=== PATIENT | female | born 1990 | race African-American/Black ===

== ENCOUNTER 2022-06-18 19:56 | Emergency (ER) | payer OTHER, SELFPAY ==
--- NOTE | ~2022-06-18 | CT_ITS ---
EXAMINATION: CT ABDOMEN AND PELVIS WITHOUT CONTRAST CLINICAL INFORMATION: Left-sided abdominal COMPARISON: 03/02/2019 TECHNIQUE: Multidetector volumetric imaging was performed from the superior aspect of the liver through the pubic symphysis. Sagittal and coronal reformatted images were obtained on the technologist's workstation. This CT examination was performed using dose optimization techniques as appropriate, variously including the following: *Automated exposure control *Adjustment of mA and/or kV according to patient size (this includes techniques or standardized protocols for targeted exams where dose is matched to indication/reason for exam; i.e. extremities or head) *Use of iterative reconstruction technique DLP: 254 mGy-cm FINDINGS: LUNG BASES: The visualized lung bases are unremarkable. LIVER, GALLBLADDER, AND BILIARY TREE: The liver is normal in size, shape, and attenuation. No focal hepatic lesion or biliary ductal dilatation is present. Gallbladder physiologically contracted. PANCREAS: Unremarkable. SPLEEN: Unremarkable. ADRENAL GLANDS: Unremarkable. KIDNEYS AND URETERS: The kidneys are normal in size, shape, and attenuation. No hydronephrosis, hydroureter, or calculi seen. No perinephric stranding. BLADDER: Unremarkable. GASTROINTESTINAL TRACT: The small and large bowel are unremarkable. The appendix is unremarkable. ABDOMINAL WALL: No significant hernia is appreciated. LYMPH NODES: Normal. VASCULAR: Unremarkable. PELVIC VISCERA: Hysterectomy. No adnexal abnormalities. OSSEOUS STRUCTURES: No acute or suspicious osseous abnormalities. CT/CT abdomen pelvis wo IV con IMPRESSION: * No acute findings within the abdomen or pelvis to explain the patient's symptomatology. * Hysterectomy.
[2022-06-18 21:15] VITALS: BP 111/72; PULSE 75; RESP 20; TEMP 36.7; O2SAT 98; BMI 16.7
[2022-06-18 22:08] LABS: Hematocrit 36.9 % (37.0-47.0); Hemoglobin 12.2 g/dl (12.0-16.0); Mean Corpuscular HGB Conc 33.1 g/dl (31.0-35.0); Mean Corpuscular Hemoglobin 29.8 pg (27.0-33.0); Mean Corpuscular Volume 90.2 fL (80.0-98.0); Mean Platelet Volume 9.4 fL (9.4-12.3); Platelet Count 326 X10*3/uL (160-400); Red Blood Count 4.09 X10*6/uL (4.20-5.50); White Blood Count 7.5 X10*3/uL (4.8-10.8)
[2022-06-18 22:26] LABS: Alanine Aminotransferase 13 U/L (0-31); Albumin Level 3.7 g/dL (3.5-5.0); Alkaline Phosphatase 69 U/L (39-117); Anion Gap 10 (12-20); Aspartate Amino Transferase 18 U/L (5-31); Bilirubin Total 0.3 mg/dL (0.0-1.0); Blood Urea Nitrogen 9 mg/dL (9-16); Carbon Dioxide 30 mmol/L (22-29); Chloride 104 mmol/L (96-108); Creatinine Clr Calc Pharmacy 69.8; Estimated Glomerular Filt Rate > 60; Glucose Random 99 mg/dL (60-115); Lipase 21 U/L (8-78); Potassium 4.4 mmol/L (3.3-5.1); Sodium 140 mmol/L (135-145); Total Protein 6.6 g/dL (6.5-8.0)
--- NOTE | 2022-06-19 01:41 | ED_ITS ---
HPI - Abdominal Pain General Chief Complaint: Abdominal Pain Stated Complaint: abd pain Time Seen by Provider: 06/19/22 01:39 Source: patient Mode of arrival: ambulatory Limitations: no limitations History of Present Illness HPI narrative: Patient stable asthma, endometriosis status post total abdominal hysterectomy been having this chronic diffuse abdominal pain for last few months was at [facility] last month with workup negative comes in with similar pain no nausea no vomiting pain gets worse after eating constipated removing her bowels every other day. No urinary complaints no hematuria no flank pain no fever or chills denies any substance abuse Related Data Previous Rx's Medication Instructions Recorded dicyclomine 20 mg tablet 20 mg PO QID PRN abdominal pain 06/19/22 #20 tabs Allergies Allergy/AdvReac Type Severity Reaction Status Date / Time blueberry [BLUEBERRY] Allergy Unknown UNKNOWN Unverified 06/19/22 01:32 Review of Systems Review of Systems Yes all other systems are reviewed and are negative [facility] Social History Social History Alcohol intake: never Smoked in Last 30 Days: No Use of substances other than those prescribed or required for medical reasons: No Advance Directives: No Advance Directives Information Provided: Yes Patient : No Physical Exam ED Vital Signs: Vital Signs - 24 hr 06/18/22 21:15 06/19/22 02:25 Temperature 98.0 F 97.6 F Pulse Rate 75 51 Respiratory Rate 20 16 Blood Pressure 111/72 122/67 Pulse Oximetry 98 100 Oxygen Delivery Method Room Air Room Air BMI result Body Mass Index 16.7 Appearance: Alert. Oriented X3. No acute distress. Eyes: No pallor icterus ENT: Pharynx normal. Oral Mucosa moist Neck: Normal inspection. Neck supple. CVS: Normal heart rate and rhythm. Pulses normal. Respiratory: No respiratory distress. Equal air entry bilateral, no wheezing/rales/rhonchi Abdomen: Soft diffuse tender no rebound tenderness or guarding Bowel sounds are present, no mass palpable, no CVA tenderness Skin: Skin warm and dry. Normal skin color. Normal skin turgor. Extremities: No lower extremity edema. No calf tenderness Neuro: Oriented X 3. No motor deficit. No sensory deficit.No cerebellar signs , cranial nerves II-XII intact Medical Decision Making Medical Decision Making MDM Narrative: Patient nonspecific diffuse abdominal pain labs are normal review CT scan was negative unable to get the records patient is still complaining of pain will get CT scan to rule out diverticulitis 04:30. Patient's CT scan is negative for acute discharge patient home on [place] likely patient has IBS Lab Data MDM Lab Attestation statement: I reviewed the patient's lab results. 06/18/22 22:01 06/18/22 22:01 Labs: Lab Results 06/18/22 06/18/22 Range/Units 22:01 22:01 WBC 7.5 (4.8-10.8) X10*3/uL RBC 4.09 L (4.20-5.50) X10*6/uL Hgb 12.2 (12.0-16.0) g/dl Hct 36.9 L (37.0-47.0) % MCV 90.2 (80.0-98.0) fL MCH 29.8 (27.0-33.0) pg MCHC 33.1 (31.0-35.0) g/dl RDW 15.0 (11.0-16.0) % Plt Count 326 (160-400) X10*3/uL MPV 9.4 (9.4-12.3) fL Absolute Nucleated RBC 0.000 (0.0-0.012) X10*3/uL Nucleated RBC % (auto) 0.0 (0.0-0.2) /100WBC Sodium 140 (135-145) mmol/L Potassium 4.4 (3.3-5.1) mmol/L Chloride 104 (96-108) mmol/L Carbon Dioxide 30 H (22-29) mmol/L Anion Gap 10 L (12-20) BUN 9 (9-16) mg/dL Creatinine 0.92 (0.5-1.4) mg/dL Estim Creat Clear Calc 69.8 Estimated GFR > 60 Random Glucose 99 (60-115) mg/dL Calcium 9.0 (8.4-10.2) mg/dL Total Bilirubin 0.3 (0.0-1.0) mg/dL AST 18 (5-31) U/L ALT 13 (0-31) U/L Alkaline Phosphatase 69 (39-117) U/L Total Protein 6.6 (6.5-8.0) g/dL Albumin 3.7 (3.5-5.0) g/dL Lipase 21 (8-78) U/L Medications Administered Discontinued Medications Generic Name Dose Route Start Last Admin Trade Name Freq PRN Reason Stop Dose Admin Dicyclomine HCl 20 mg 06/19/22 02:17 06/19/22 02:50 Dicyclomine Hcl 10 Mg Capsule PO 06/19/22 02:18 20 mg ONCE ONE Administration Discharge Plan Discharge Clinical Impression: Irritable bowel syndrome Patient Disposition: Home, Self-Care Instructions: Irritable Bowel Syndrome (ED) Additional Instructions: Drink plenty of fluids Take medication as prescribed Follow-up with your PCP Prescriptions: New dicyclomine 20 mg tablet 20 mg PO QID PRN (Reason: abdominal pain) Qty: 20 0RF Interventions: ED Discharge Assessment Last Done: 06/19/22 04:32 Discharge Date/Time: 06/19/22 04:35
[2022-06-19 02:25] VITALS: BP 122/67; PULSE 51; RESP 16; TEMP 36.4; O2SAT 100
[2022-06-19] MEDS: Dicyclomine HCl 10 MG CAPSULE 20 MG PO (02:50)
== END 2022-06-19 04:35 | disposition home or self-care (01) ==
PROVIDERS: Emergency Provider Internal Medicine; PCP Internal Medicine
DX: K58.9 Irritable bowel syndrome, unspecified (principal); R10.9 Unspecified abdominal pain; J45.909 Unspecified asthma, uncomplicated
CPT/HCPCS: 36415; 74176; 80053; 83690; 85027; 99284

== ENCOUNTER 2022-07-04 10:28 | Emergency (ER) | payer OTHER, SELFPAY ==
--- NOTE | ~2022-07-04 | XR_ITS ---
EXAMINATION: XR KNEE, LEFT CLINICAL INFORMATION: Pain COMPARISON: None available. TECHNIQUE: Four views of the left knee. FINDINGS: Bones and soft tissues are normal. No fracture or joint effusion. Alignment is anatomic. Joint spaces are well maintained. No arthritic deformity. No abnormal soft tissue calcification. XR/XR knee LT 4V IMPRESSION: Normal left knee.
[2022-07-04 10:38] VITALS: BP 113/61; PULSE 54; RESP 19; TEMP 36.6; O2SAT 99; BMI 16.7
--- NOTE | 2022-07-04 10:45 | ED_ITS ---
HPI - Extremity Injury (Lower) General Chief Complaint: Extremity Injury, Lower Stated Complaint: L knee pain Time Seen by Provider: 07/04/22 10:44 Source: patient, RN notes reviewed and old records reviewed Mode of arrival: ambulatory History of Present Illness HPI Narrative: 31-year-old female with no significant past medical history presenting to the ED complaining of atraumatic left knee pain x 4 days. Denies known injury/trauma or fall, numbness, tingling, weakness, fever MD complaint: knee injury Onset (ago): day(s) Related Data Previous Rx's Medication Instructions Recorded dicyclomine 20 mg tablet 20 mg PO QID PRN abdominal pain 06/19/22 #20 tabs naproxen 500 mg tablet 500 mg PO BID PRN pain 10 days #20 07/04/22 tabs Allergies Allergy/AdvReac Type Severity Reaction Status Date / Time blueberry [BLUEBERRY] Allergy Unknown UNKNOWN Verified 07/04/22 10:38 Review of Systems Review of Systems: Constitutional: No Fever, No Chills ENT/Mouth: No Ear Pain, No Nasal Congestion, No sore throat, No Rhinorrhea, No Swallowing Difficulty Cardiovascular: No Chest Pain, No SOB Respiratory: No Cough, No Sputum Gastrointestinal: No Nausea, No Vomiting, No Diarrhea, No Constipation, No Abdominal pain Genitourinary: No Dysuria, No Urinary Frequency, No Hematuria, No Flank Pain Musculoskeletal: +joint pain, No Myalgias, No Joint Swelling Skin: No Skin Lesions, No rash Neuro: No Weakness, No Numbness, No Paresthesias Yes all other systems are reviewed and are negative Constitutional: Constitutional: Reports as per [facility] Past Medical History Attestation statement: The following information was validated with the patient. Social History Social History Alcohol intake: never Advance Directives: No Advance Directives Information Provided: No Physical Exam Vital Signs: Vital Signs: Last Vital Signs Temp 98 F 07/04/22 10:38 Pulse 54 07/04/22 10:38 Resp 19 07/04/22 10:38 BP 113/61 07/04/22 10:38 Pulse Ox 99 07/04/22 10:38 O2 Del Method Room Air 07/04/22 10:38 BMI result Body Mass Index 16.7 Const: General: cooperative, healthy appearing and no acute distress Orientation/consciousness: patient oriented x3 Limitations: no limitations HEENT: Head: Yes normal to inspection and Yes atraumatic Ears: hearing grossly normal bilaterally General nose exam: Normal external nose present Face and sinus: Yes normal facial exam Eyes: General: appearance normal, both eyes and all related structures EOM: EOMs intact bilaterally Neck: Neck: Yes normal visual inspection and Yes no meningeal signs Resp: Effort & Inspection: normal respiratory effort and no respiratory distress Cardio: Rate: regular rate Peripheral pulses: Peripheral pulses 2+ throughout Skin: Rashes: no rashes Wounds: no wounds Neuro: General: patient oriented x3, tone normal and no meningeal signs Gait exam (Neuro): Normal gait present Extrem: Other: Left knee without noted deformity. Mild suprapatellar swelling noted with tenderness to palpation. Flexion intact with pain. Extension WNL. Neurovascular intact distally. No warmth/erythema Course Course Course Narrative: XR knee LT 4V IMPRESSION: Normal left knee. >> Shekhar wrap applied for comfort/debility Results discussed with patient including worrisome signs and symptoms and strict return precautions, and when to return to the emergency department. They verbalized understanding and feel safe for discharge at this time. Medical Decision Making Medical Decision Making MDM Narrative: 31-year-old female with no significant past medical history presenting to the ED complaining of atraumatic left knee pain x 4 days. On exam vital signs stable, NAD, nontoxic appearing physical exam as above. Concern for strain vs meniscal/tendon injury. Low suspicion for fracture. Low suspicion for septic joint/arthritis plan: X-rays Please refer to course for remaining clinical decision making, interpretation of labs/imaging results, and discussions with consultants and/or family members. Differential Diagnosis Differential Diagnoses: The differential diagnosis associated with the presentation includes As above Admission/Observation Consideration of admission/observation: Escalation of care including admission/observation considered Lab Data MDM Lab Attestation statement: I reviewed the patient's lab results. Radiology Impression Discussion of test interpretation with radiology: I have reviewed the radiologist's reading. External Record Review External record reviewed: Inpatient record, Office record, Outpatient record, Prior outpatient labs, Prior outpatient radiology, Primary care record and Outside ED record Discharge Plan Discharge Clinical Impression: Acute knee pain Patient Disposition: Home, Self-Care Instructions: Knee Pain (ED) Additional Instructions: Your x-ray is unremarkable. Ice and elevate Wear Shekhar wrap for comfort and stability Take Tylenol and Motrin for pain Follow-up with her doctor and Orthopedics as needed Prescriptions: New naproxen 500 mg tablet 500 mg PO BID PRN (Reason: pain) 10 Days Qty: 20 0RF No Action dicyclomine 20 mg tablet 20 mg PO QID PRN (Reason: abdominal pain) Qty: 20 0RF Referrals: [facility] [Provider Group] Physician,Unknown J [Primary Care Provider] - Interventions: ED Discharge Assessment Last Done: 07/04/22 12:03 Discharge Date/Time: 07/04/22 12:04
--- OUTSIDE RECORDS SUMMARY | 2022-07-04 14:34 | XMS_ITS | Continuity of Care Document ---
Author Name Unknown Organization [facility] Address [address] [place] [id number]- Care Team Providers Care [employer] Worker Name Role Phone Charles LANG, Shabana Joe Primary Care Physician Encounter [facility] Date(s): 04/01/21 - 05/01/[address] [address]- Allergies, Adverse Reactions, Alerts Substance Reaction Severity Status Cats sneezing Active Other Food Allergy 1, 2 Anaphylaxis anaphylaxis to blueberries itcy mouth Blueberries Active 1blueberries 2Blueberries Immunizations Given and Recorded Vaccine Date Status Refusal Reason influenza virus vaccine, inactivated 12/09/18 Give n influenza virus vaccine, inactivated 01/03/16 Give n influenza virus vaccine, inactivated 12/07/14 Give n influenza virus vaccine, inactivated 12/17/13 Give n influenza virus vaccine, inactivated 02/11/13 Give n hepatitis B adult vaccine 05/16/15 Given hepatitis B adult vaccine 12/07/14 Given hepatitis B adult vaccine 11/02/14 Given pneumococcal 23-valent vaccine 01/15/15 Given tetanus/diphtheria/pertussis, acel(Tdap) 12/17/13 Given tetanus/diphtheria/pertussis, acel(Tdap) 02/07/13 Given FluLaval (oldterm) 1 01/14/12 Given Tet/diphth/pertussis, acel (oldterm) 11/16/10 Give n Not Given Vaccine Date Status Refusal Reason pneumococcal 23-valent vaccine 12/04/13 Not Given Patient Refuses pneumococcal 23-valent vaccine 03/10/13 Not Given Patient Refuses 1Admin Note: VIS GIVEN Medications albuterol CFC free 90 mcg/inh inhalation aerosol 1, puffs, Inhalation, Every 6 hours, PRN, # 18 Gm, Refills 0, Tot. Refills 0, Maintenance, 06/15/1912:44:37 EDT, Aerosol, Route to Pharmacy Electronically, [id number], [facility]/pharmacy #[id number], Compound Start Date: 06/15/18 Status: Ordered Colace sodium 100 mg oral capsule 100 mg, 1, capsule, By Mouth, 2 times a day, # 60 capsule, Refills 0, Tot. Refills 0, Maintenance, 02/25/18 13:34:26 EST, Print Requisition Start Date: 02/25/18 Stop Date: 03/27/18 Status: Ordered ferrous sulfate 325 mg oral enteric coated tablet 325 mg, 1, tablet, By Mouth, Daily, # 90 tablet, Refills 0, Tot. Refills 0, Maintenance, 03/20/20 9:28:00 EST, Route to Pharmacy Electronically, [facility]/pharmacy #[id number], Partial fill upon patient request if the prescription is for a schedule II opioid drug... Start Date: 03/20/20 Status: Ordered fluticasone 50 mcg/inh nasal spray 1 sprays, Nares, Both, 2 times a day, # 16 Gm, 0 Refills, Maintenance, 07/27/19 19:54:00 EDT, [place], [facility]/pharmacy #[id number], 1 sprays Nares, Both 2 times a day, 174, cm, 12/09/18 8:31:00 EDT, Height, 50,kg, 04/10/19 4:52:00 EST, Dry Weight Start Date: 07/27/19 Status: Ordered ibuprofen 600 mg oral tablet 600 mg, 1, tablet, By Mouth, Every 8 hours, # 90 tablet, Refills 2, Tot. Refills 2, Maintenance, 03/05/19 3:09:00 EST, Route to Pharmacy Electronically, [facility]/pharmacy #[id number], 174, cm, 12/09/18 8:31:00 EDT, Height, 52.7, kg, 10/26/18 15:15:00 EDT, Dry We... Start Date: 03/05/19 Status: Ordered loratadine 10 mg oral tablet 10 mg, 1, tablet, By Mouth, Daily, # 30 tablet, Refills 4, Tot. Refills 4, Maintenance, 07/20/20 10:21:00 EDT, Route to Pharmacy Electronically, [facility]/pharmacy #[id number], 174, cm, 07/20/20 9:36:00 EDT, Height, 50.1, kg, 10/14/19 23:21:00 EDT, Dry Weight Start Date: 07/20/20 Stop Date: 12/17/20 Status: Ordered oxyCODONE 5 mg oral tablet See Instructions, PRN, take 0.5 tablet at onset of severe pain. if not better in 1 hr, take the remainder of the tablet. maximum use: 1 tablet/day masspat checked. partial fill permitted, # 4 tablet,Refills 0, Tot. Refills 0, Maintenance, endometr... Start Date: 04/07/21 Status: Ordered oxyCODONE 5 mg oral tablet See Instructions, take 0.5 tablet at onset of severe pain. if not better in 1 hr, take the remainder of the tablet. maximum use: 1 tablet/day masspat checked. partial fill permitted fill on or after 09/19/20, # 5 tablet, Refills 0, Tot. Refills 0... Start Date: 09/19/20 Status: Ordered oxyCODONE 5 mg oral tablet See Instructions, PRN, take 0.5 tablet at onset of severe pain. if not better in 1 hr, take the remainder of the tablet. maximum use: 1 tablet/day masspat checked. partial fill permitted, # 4 tablet,Refills 0, Tot. Refills 0, Maintenance, endometr... Start Date: 01/05/21 Status: Ordered sulindac 150 mg oral tablet 1 tablet = 150 mg, By Mouth, 2 times a day, PRN for pain, # 20 tablet, 0 Refills, Maintenance, 08/19/20 21:01:00 EDT, Tablet, [facility]/pharmacy #[id number], Partial fill upon patient request if the prescriptionis for a schedule II opioid drug., 174, cm, ... 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
--- OUTSIDE RECORDS SUMMARY | 2022-07-04 14:34 | XMS_ITS | Continuity of Care Document ---
Author Name Unknown Organization [facility] Address [address] [place] [address]- Care Team Providers Care Sawdust Machine Operator Name Role Phone Oswald Harley NP Primary Care Physicia n Encounter [facility] ACCT R [id number] Date(s): 06/03/22 - 07/03/[address] [address]- Attending Physician: Srinivasa Mendieta Admitting Physician: Srinivasa Mendieta Referring Physician: AdmtrSrinivasa Allergies, Adverse Reactions, Alerts Substance Reaction Severity [...] Patient Refuses 1Admin Note: VIS GIVEN Medications acetaminophen 325 mg oral tablet 650 mg, 2, tablet, By Mouth, Every 4 hours, PRN, # 50 tablet, Refills 0, Tot. Refills 0, Maintenance, as needed for fever, 10/30/21 15:13:00 EDT, Route to Pharmacy Electronically, [facility]/pharmacy #[id number],Partial fill upon patient request if the prescripti... Start Date: 10/30/21 Status: Ordered albuterol CFC free 90 mcg/inh inhalation aerosol 2, puffs, Inhalation, Every 6 hours, PRN, # 1 each, Refills 11, Tot. Refills 11, Maintenance, 10/10/21 9:46:00 EDT, Aerosol, Route to Pharmacy Electronically, [id number], [place], [place] - [id number], 173, c... Start Date: 10/10/21 Stop Date: 10/05/22 Status: Ordered dicyclomine 20 mg oral tablet 1 tablet = 20 mg, By Mouth, 3 times a day, For stomach cramping., # 21 tablet, 0 Refills, Maintenance, 05/24/22 11:58:00 EDT, Tablet, [facility]/pharmacy #[id number], Partial fill upon patient request if the prescription is for a schedule II opioid drug., 173, cm,... Start Date: 05/24/22 Stop Date: 05/31/22 Status: Ordered estradiol 2 mg oral tablet 1 tablet = 2 mg, By Mouth, Daily, # 30 tablet, 0 Refills, Maintenance, 04/27/22 4:22:00 EST, Tablet, Partial fill upon patient request if the prescription is for a schedule II opioid drug. Start Date: 04/27/22 Status: Ordered famotidine 20 mg oral tablet 20 mg, 1, tablet, By Mouth, 2 times a day, # 60 tablet, Refills 0, Tot. Refills 0, Maintenance, 05/26/22 8:45:00 EDT, Route to Pharmacy Electronically, [facility]/pharmacy #[id number], Partial fill upon patient request if the prescription is for a schedule II opio... Start Date: 05/26/22 Status: Ordered famotidine 20 mg oral tablet 20 mg, 1, tablet, By Mouth, 2 times a day, # 180 tablet, Refills 0, Tot. Refills 0, Maintenance, 05/26/22 9:05:00 EDT, Route to Pharmacy Electronically, [facility]/pharmacy #[id number], Partial fill upon patient request if the prescription is for a schedule II opi... Start Date: 05/26/22 Status: Ordered omeprazole 40 mg oral enteric coated capsule 1 capsule = 40 mg, By Mouth, Daily, For abdominal pain/ stomach acid/ reflux, # 14 capsule, 0 Refills, Maintenance, 05/24/22 11:59:00 EDT, EC Capsule, [facility]/pharmacy #[id number], Partial fill upon patient request if the prescription is for a schedule II opioi... Start Date: 05/24/22 Stop Date: 06/07/22 Status: Ordered ondansetron 4 mg oral tablet, disintegrating 1 tablet = 4 mg, By Mouth, Every 8 hours, PRN as needed for nausea/vomiting, # 12 tablet, 0 Refills, Maintenance, 05/26/22 8:45:00 EDT, DIS Tablet, [facility]/pharmacy #[id number], Partial fill upon patient request if the prescription is for a schedule II opioid d... Start Date: 05/26/22 Status: Ordered ondansetron 4 mg oral tablet, disintegrating 1 tablet = 4 mg, By Mouth, Every 8 hours, PRN as needed for nausea/vomiting, # 14 tablet, 0 Refills, Maintenance, 05/26/22 9:05:00 EDT, DIS Tablet, [facility]/pharmacy #[id number], Partial fill upon patient request if the prescription is for a schedule II opioid d... Start Date: 05/26/22 Status: Ordered predniSONE 5 mg oral tablet 1 tablet = 5 mg, By Mouth, Daily, # 5 tablet, 0 Refills, Maintenance, 04/29/22 13:40:00 EST, Tablet, [facility]/pharmacy #[id number], Partial fill upon patient request if the prescription is for a schedule II opioid drug., 173, cm, 04/28/22 11:17:00 EST, Height, 5... Start Date: 04/29/22 Stop Date: 05/04/22 Status: Ordered Problem List Condition Confirmation Course Effective Dates Status H ealth Status Informant Asthma Confirmed Active Depression Confirmed Active Pseudoseizure Confirmed Active Dizzinesses Confirmed Active Endometriosis on pelvisoscopy w bx Dr Stacy 07/2015 Confirmed Active Fall from slip, trip, or stumble Confirmed Active Status post tubal ligation 1 Confirmed Active Left inguinal hernia Confirmed Active Right inguinal hernia Confirmed Active Seizures Confirmed Active Underweight Confirmed Active Social History Social History Type Response Smoking Status 5-9 cigarettes (betw een 1/4 to 1/2 pack)/day in last 30 days; Other: states the amount varies; entered on: 02/06/22 Sex Implantable Device List Procedure Provider Procedure Date Device Type Site Repair Hernia Inguinal with Mesh Tan LANG, Luciano 02/25/18 Unknown Groin Right Device Identifier Serial Number Lot or Batch Number Manufacturing Date Expiration Date Distinct Identification Code MRI Safety Implantable Status Assigning Authority Unknown [id number] Unknown 10/04/21 Unknown Unknown Active Unknown Note * Shauna Molina: PERFORM, SIGN, VERIFY Event Display: Patient Education/Instruction Authored Date: [id number] [facility] Clinical Summary Person Information Visit Date 03/20/2015 8:40 AM Name ASHER JUÁREZ Age 24 Years 1990 12:00 AM PCP Shabana Soto MD, I PCP Sex Female Race Black Ethnicity Non-/Non- Language Finnish You can now view a summary of your hospital visit from the comfort of your home through a free online portal called [employer]. [employer] is a website that allows you to securely view your medical information including discharge summary, medications and follow-up visits. You can also send a secure electronic message to your doctor???s office to request appointments, renew medicationsor just ask a question. You can enroll at [email or web address] or register during your next office visit. Smoking can increase your chances of developing chronic health problems and can cause harmful effects to other family members in your house. If you smoke, you are strongly encouraged to quit. Please call the [place] Smokers??? Helpline at 8-385-RLLNNOW (or ) or log on to [email or web address] for more information. Reason for Visit: Allergy Info: Other Food Allergy Smoking Status Former smoker Vital Signs Height Weight BMI Blood Pressure / Temperature Pulse Rate Respiratory Rate 02 Sat Mode of Delivery / Medication Information Albuterol (albuterol 0.083% inhalation solution) 6 mL, Inhalation, every 6 hours, 10 days, As Needed, for wheezing, Refills: 0 Albuterol (albuterol CFC free 90 mcg/inh inhalation aerosol) 4 puffs, Inhalation, every 4 hours, 14days, As Needed, for wheezing, Refills: 0 Beclomethasone (Qvar 80 mcg/inh inhalation aerosol) 1 puffs, Inhalation, twice a day, rinse mouth and throat after use, 30 days, Refills: 11 Cholecalciferol (Vitamin D3 2000 intl units oral tablet) 1 tablet, Oral, Daily, with food, 30 days,Refills: 11 Emtricitabine-Tenofovir (Truvada 200 mg-300 mg oral tablet) 1 tablet, Oral, Daily, She is on this for PrEP, 30 days, Refills: 3 Epinephrine (EpiPen 2-Shen 0.3 mg injectable kit) , See Instructions, Intramuscular Once--then go [facility] ER-pt will call w/ her insurance info, Refills: 0 Loratadine (loratadine 10 mg oral tablet) 1 tablet, Oral, Daily, 30 days, Refills: 5 Mirtazapine (mirtazapine 15 mg oral tablet) 1 tablet, Oral, Daily at Bedtime, 30 days, Refills: 5 Multivitamin (multivitamin Multiple Vitamins oral tablet) 1 tablet, Oral, Daily, 30 days, Refills: 11 Future Orders No future orders Orders Completed this Visit No visit orders documented Problem List Problem Asthma Left inguinal hernia Exposure to Human immunodeficiency virus Dissecting aneurysm of coronary artery H/O: tubal ligation Diagnosis Procedures No Procedures Documented If the following labs have been performed in the last year, the most recent result is displayed below. Diagnostic Results Lab Result Value Date Lead Hemoglobin A1C 5.6 06/21/14 LDL HDL Triglycerides Total Cholesterol Disclaimer: The information provided is of a general nature and is intended to be used in conjunction with the recommendations and advice of your health care practitioner. Every effort has been made to ensure that the information provided is accurate and complete at the time it is provided to you however, as your needs change, or, as new information becomes available, different or additional instructions may be required. If you have questions, please consult with your primary care provider or pharmacist, as appropriate. This information is not intended to serve as substitution for assessment and evaluation by a qualified health care provider. If you do not have a primary care provider, you may find a [facility] provider by calling [facility] [employer] Link at [phone]. For information about the plan of care including goals and instructions for your diagnosis, please see the patient education orders section of this document. Patient Visit Summary: Future Appointments: Type Location Start Finish State Return [facility] Neurology 02/21/2015 2:00 PM 02/21/2015 2:30 PM Pending Return Adult [facility] See Sq 03/20/2015 8:40 AM 03/20/2015 8:55 AM Pending Follow-Up Instructions With: Address: When: NEUROLOGY APPT 02/22/16 2P @ [address] [place] [address] Comments: Patient Education Materials Additional Instructions: Patient Care team information Care Team Personnel Name: Mendy Spicer RN Position: [facility] RN Member Role: Primary Care Nurse Name: Shiela Mays RN Position: [facility] RN Member Role: Primary Care Nurse Name: Ashley Fields RN Position: [facility] MR W/ Merge Member Role: Primary Care Nurse Name: Keith Stacy MD Position: [facility] OB/GYN DOCTOR MD Member Role: [employer] OB/GYN DOCTOR Physician Address: Address: [address] [place] [address] Name: Robin Wagner Position: [facility] RN Member Role: Primary Care Nurse Name: Justin Francis RN Position: [facility] RN Member Role: Primary Care Nurse Name: Laya Montes RN Position: [facility] ED RN W/OE and Tasks Member Role: Primary Care Nurse Name: Alice Juarez RN Position: [facility] RN Member Role: Primary Care Nurse Name: Fela Garcia RN Position: [facility] ED RN W/OE and Tasks Member Role: Primary Care Nurse Name: Anay Rouse RN Position: S RN Member Role: Primary Care Nurse Name: Jennifer Weaver RN Position: S RN Member Role: Primary Care Nurse Name: Roxana Young RN Position: [facility] RN Member Role: Primary Care Nurse Name: Oswald Harley NP Position: [facility] PCO Associate Professional Member Role: PCP Address: Address: [address] [place] [id number]- Name: Megan Grant RN Position: [facility] ED RN W/OE and Tasks Member Role: Primary Care Nurse Name: Eliane Vo RN Position: [facility] RN Member Role: Primary Care Nurse Name: Neda Hernandez RN Position: [facility] PCO RN Member Role: Primary Care Nurse Care Team Related Persons Name: MENDEL MCKEON Address: home [address] [place] [address] Name: GIANA LAMAS Address: home [address] [place] [address] Name: ROSHNI JUÁREZ Address: [place] [address] Name: SINDHU SCHRADER Address: home [address] [place] [address] Name: CRAIG VACA Address: home [address] [place] [id number]
--- OUTSIDE RECORDS SUMMARY | 2022-07-04 14:35 | XMS_ITS | Continuity of Care Document ---
Author Name Unknown Organization [facility] Address [address] [place] [address]- Care Team Providers Care Tower Equipment Installer Name Role Phone Charles LANG, Shabana Joe Primary Care Physician Encounter [facility] Date(s): 10/24/21 - 11/23/[address] [address]- Allergies, Adverse Reactions, Alerts Substance Reaction Severity [...] 10/30/21 15:13:00 EDT, Route to Pharmacy Electronically, [facility]/pharmacy #[id number],Partial fill upon patient request if the prescripti... Start Date: 10/30/21 Status: Ordered albuterol CFC free 90 mcg/inh inhalation aerosol 2, puffs, Inhalation, Every 6 hours, PRN, # 1 each, Refills 11, Tot. Refills 11, Maintenance, 10/10/21 9:46:00 EDT, Aerosol, Route to Pharmacy Electronically, [id number], [place], [place] - [phone], 173, c... Start Date: 10/10/21 Stop Date: 10/05/22 Status: Ordered docusate sodium 100 mg oral capsule 1 capsule = 100 mg, By Mouth, 2 times a day, PRN as needed for constipation, # 60 capsule, 0 Refills, Maintenance, 10/30/21 15:12:00 EDT, Capsule, [facility]/pharmacy #[id number], Partial fill upon patient request if the prescription is for a schedule II opioid dr... Start Date: 10/30/21 Status: Ordered Estrace 2 mg oral tablet 1 tablet = 2 mg, By Mouth, Daily, # 30 tablet, 0 Refills, Maintenance, 10/30/21 15:28:00 EDT, Tablet, [facility]/pharmacy #[id number], Partial fill upon patient request if the prescription is for a schedule II opioid drug., 173, cm, 10/27/21 23:24:00 EDT, Height,... Start Date: 10/30/21 Status: Ordered ibuprofen 600 mg oral tablet 600 mg, 1, tablet, By Mouth, 4 times a day, PRN, # 40 tablet, Refills 0, Tot. Refills 0, Maintenance, for pain, 10/30/21 15:12:00 EDT, Route to Pharmacy Electronically, [facility]/pharmacy #[id number], Partial fill upon patient request if the prescription is for a... Start Date: 10/30/21 Status: Ordered oxyCODONE 5 mg oral capsule 1 capsule = 5 mg, By Mouth, Every 6 hours, PRN as needed for pain, # 10 capsule, 0 Refills, Maintenance, 11/07/21 18:57:00 EDT, Capsule, [facility]/pharmacy #[id number], Partial fill upon patient request if the prescription is for a schedule II opioid drug., 173,... Start Date: 11/07/21 Status: Ordered oxyCODONE 5 mg oral tablet 5 mg, 1, tablet, By Mouth, Every 6 hours, PRN, # 20 tablet, Refills 0, Tot. Refills 0, Maintenance,as needed for pain, 10/30/21 15:13:00 EDT, Route to Pharmacy Electronically, [facility]/pharmacy #[id number], Partial fill upon patient request if the prescription... Start Date: 10/30/21 Status: Ordered Senna 8.6 mg oral tablet 17.2 mg, 2, tablet, By Mouth, Daily at bedtime, # 50 tablet, Refills 0, Tot. Refills 0, Maintenance, 10/30/21 15:13:00 EDT, Route to Pharmacy Electronically, [facility]/pharmacy #[id number], Partial fill upon patient request if the prescription is for a schedule I... 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) Active Fall from slip, trip, or stumble(Confirmed) Active Status post tubal ligation(C onfirmed) 1 Active Left inguinal hernia(Confirmed) Active Right inguinal hernia(Confirmed) Active Seizures(Confirmed) Active Underweight(Confirmed) Active Social History Social History Type Response Smoking Status Current every day sm oker; Type: Cigarettes; Other: 3 cigarettes a day; entered on: 10/10/17 Sex Implantable Device List Procedure Provider Procedure Date Device Type Site Repair Hernia Inguinal with Mesh Tan LANG, Luciano 02/25/18 Unknown Groin Right Device Identifier Serial Number Lot or Batch Number Manufacturing Date Expiration Date Distinct Identification Code MRI Safety Implantable Status Assigning Authority Unknown [id number] Unknown 10/04/21 Unknown Unknown Active Unknown Care Team Personnel Name: Shabana Soto MD, I Address: [address] [place] [address], [place] [address]-
--- OUTSIDE RECORDS SUMMARY | 2022-07-04 14:35 | XMS_ITS | Continuity of Care Document ---
Author Name Unknown Organization [facility] Address [address] [place] [address]- Care Team Providers Care Dispatch Clerk Name Role Phone Charles LANG, Shabana Joe Primary Care Physician [phone] Encounter [facility] Date(s): 01/21/22 - 02/20/[address] [address]- Allergies, Adverse Reactions, Alerts Substance Reaction Severity [...] 10/30/21 15:13:00 EDT, Route to Pharmacy Electronically, [facility]/pharmacy #[id number],Partial fill upon patient request if the prescripti... Start Date: 10/30/21 Status: Ordered albuterol CFC free 90 mcg/inh inhalation aerosol 2, puffs, Inhalation, Every 6 hours, PRN, # 1 each, Refills 11, Tot. Refills 11, Maintenance, 10/10/21 9:46:00 EDT, Aerosol, Route to Pharmacy Electronically, [id number], [place], [place] - [phone], 173, c... Start Date: 10/10/21 Stop Date: 10/05/22 Status: Ordered Problem List Condition Confirmation Course Effective Dates Status H ealth Status Informant Asthma Confirmed Active Depression Confirmed Active Pseudoseizure Confirmed Active Dizzinesses Confirmed Active Endometriosis on pelvisoscopy w bx Dr Stacy 07/2015 Confirmed Active Partner HIV positive on Truvada Confirmed Active Fall from slip, trip, or [...] Type Site Repair Hernia Inguinal with Mesh Luciano Maddox MD 02/25/18 Unknown Groin Right Device Identifier Serial Number Lot or Batch Number Manufacturing Date Expiration Date Distinct Identification Code MRI Safety Implantable Status Assigning Authority Unknown [id number] Unknown 10/04/21 Unknown Unknown Active Unknown Patient Care team information Care Team Personnel Name: Mendy Spicer RN Position: [facility] RN Member Role: Primary Care Nurse Name: Ashley Fields RN Position: [facility] MR W/ Merge Member Role: Primary Care Nurse Name: Keith Stacy MD Position: [facility] BLOOD BANK CALENDAR CONTROL CLERK MD Member Role: [employer] BLOOD BANK CALENDAR CONTROL CLERK Physician Address: Address: [address] [address]- [place] Name: Shabana Soto MD, I Position: [facility] Primary Care Physician Member Role: PCP Address: Address: [address] [place] [address]- Name: Robin Wagner Position: S RN Member Role: Primary Care Nurse Name: Justin Francis RN Position: S RN Member Role: Primary Care Nurse Name: Laya Montes RN Position: S RN Member Role: Primary Care Nurse Name: Alice Juarez RN Position: [facility] RN Member Role: Primary Care Nurse Name: Fela Garcia RN Position: [facility] ED RN W/OE and Tasks Member Role: Primary Care Nurse Name: Anay Rouse RN Position: [facility] RN Member Role: Primary Care Nurse Name: Jennifer Weaver RN Position: S RN Member Role: Primary Care Nurse Name: Megan Grant RN Position: [facility] ED RN W/OE and Tasks Member Role: Primary Care Nurse Name: Eliane Vo RN Position: [facility] RN Member Role: Primary Care Nurse Name: Neda Hernandez RN Position: [facility] PCO RN Member Role: Primary Care Nurse Care Team Related Persons Name: MENDEL MCKEON Address: home [address], [place] [address] Name: GIANA LAMAS Address: home [address] [place] [address] Name: ROSHNI JUÁREZ Address: [place] [address] Name: SINDHU SCHRADER Address: home [address] [place] [address] Name: CRAIG VACA Address: home [address] [place] [address]
--- OUTSIDE RECORDS SUMMARY | 2022-07-04 14:35 | XMS_ITS | Continuity of Care Document ---
Author Name Unknown Organization [facility] Address [address] [place] [address]- Care Team Providers Care Marketing Forecaster Name Role Phone Charles LANG, Shabana Joe Primary Care Physician Encounter [facility] Date(s): 06/18/21 - 07/18/[address] [address]- Allergies, Adverse Reactions, Alerts Substance Reaction Severity [...] 06/15/1912:44:37 EDT, Aerosol, Route to Pharmacy Electronically, [id number], [facility]/pharmacy #[id number], Compound Start Date: 06/15/18 Status: Ordered [...] 03/20/20 9:28:00 EST, [id number] Partial fill upon patient request if the prescription is for a schedule II opioid drug... Start Date: 03/20/20 Status: Ordered fluticasone 50 mcg/inh nasal spray 1 sprays, Nares, Both, 2 times a day, # 16 Gm, 0 Refills, Maintenance, 07/27/19 19:54:00 EDT, [place], [facility]/pharmacy #[id number], 1 sprays Nares, Both 2 times a day, 174, cm, 12/09/18 8:31:00 EDT, Height, 50,kg, 04/10/19 4:52:00 EST, Dry Weight Start Date: 07/27/19 Status: Ordered ibuprofen 600 mg oral tablet 600 mg, 1, tablet, By Mouth, Every 8 hours, # 90 tablet, Refills 2, Tot. Refills 2, Maintenance, 03/05/19 3:09:00 EST, Route to Pharmacy Electronically, [facility]/pharmacy #[id number], 174, cm, 12/09/18 8:31:00 EDT, Height, 52.7, kg, 10/26/18 15:15:00 EDT, Dry We... Start Date: 03/05/19 Status: Ordered loratadine 10 mg oral tablet 10 mg, 1, tablet, By Mouth, Daily, # 30 tablet, Refills 4, Tot. Refills 4, Maintenance, 07/20/20 10:21:00 EDT, Route to Pharmacy Electronically, [facility]/pharmacy #[id number], 174, cm, 07/20/20 9:36:00 EDT, Height, [...] Tot. Refills 0, Maintenance, endometr... Start Date: 06/01/21 Status: Ordered oxyCODONE 5 mg oral tablet [...] 0 Refills, Maintenance, 08/19/20 21:01:00 EDT, Tablet, [id number], Partial fill upon patient request if the [...] MESH BARD [id number] [id number] - B SUSANNA ([id number]) 1 Bard Davol 29 Unknown ANJELICA:No Information Assigning Authority: FDA
--- OUTSIDE RECORDS SUMMARY | 2022-07-04 14:35 | XMS_ITS | Continuity of Care Document ---
Author Name Unknown Organization [facility] Address [address] [place] [address]- Care Team Providers Care Benefits Sales Consultant Name Role Phone Charles LANG, Shabana Joe Primary Care Physician [phone] Encounter [facility] Date(s): 06/27/20 - 07/27/[address] [address]- Allergies, Adverse Reactions, Alerts Substance Reaction Severity [...] 06/15/1912:44:37 EDT, Aerosol, Route to Pharmacy Electronically, [id number], [facility]/pharmacy #[id number], Compound Start Date: 06/15/18 Status: Ordered Colace sodium 100 mg oral capsule 100 mg, 1, capsule, By Mouth, 2 times a day, # 60 capsule, Refills 0, Tot. Refills 0, Maintenance, 02/25/18 13:34:26 EST, Print Requisition Start Date: 02/25/18 Stop Date: 03/27/18 Status: Ordered doxycycline hyclate 100 mg oral enteric coated tablet 0.5 tablet = 50 mg, By Mouth, Every 12 hours, for 10 days, # 10 tablet, 0 Refills, Acute 07/30/20 10:20:00 EDT, 07/20/20 10:20:00 EDT, CR Tablet, [facility]/pharmacy #[id number], Partial fill upon patient requestif the prescription is for a schedule II opioid roberto carlos... Start Date: 07/20/20 Stop Date: 07/30/20 Status: Ordered ferrous sulfate 325 mg oral enteric coated tablet 325 mg, 1, tablet, By Mouth, Daily, # 90 tablet, Refills 0, Tot. Refills 0, Maintenance, 03/20/20 9:28:00 EST, Route to Pharmacy Electronically, [facility]/pharmacy #[id number], Partial fill upon patient request if the prescription is for a schedule II opioid drug... Start Date: 03/20/20 Status: Ordered fluticasone 50 mcg/inh nasal spray 1 sprays, Nares, Both, 2 times a day, # 16 Gm, 0 Refills, Maintenance, 07/27/19 19:54:00 EDT, [place], [facility]/pharmacy #[id number], 1 sprays Nares, Both 2 times a day, 174, cm, 12/09/18 8:31:00 EDT, Height, 50,kg, 04/10/19 4:52:00 EST, Dry Weight Start Date: 07/27/19 Status: Ordered ibuprofen 600 mg oral tablet 600 mg, 1, tablet, By Mouth, Every 8 hours, # 90 tablet, Refills 2, Tot. Refills 2, Maintenance, 03/05/19 3:09:00 EST, Route to Pharmacy Electronically, [facility]/pharmacy #[id number], 174, cm, 12/09/18 8:31:00 EDT, Height, 52.7, kg, 10/26/18 15:15:00 EDT, Dry We... Start Date: 03/05/19 Status: Ordered loratadine 10 mg oral tablet 10 mg, 1, tablet, By Mouth, Daily, # 30 tablet, Refills 4, Tot. Refills 4, Maintenance, 07/20/20 10:21:00 EDT, Route to Pharmacy Electronically, [facility]/pharmacy #[id number], 174, cm, 07/20/20 9:36:00 EDT, Height, 50.1, kg, 10/14/19 23:21:00 EDT, Dry Weight Start Date: 07/20/20 Stop Date: 12/17/20 Status: Ordered oxyCODONE 5 mg oral tablet See Instructions, take 0.5 tablet at onset of severe pain. if not better in 1 hr, take the remainder of the tablet. maximum use: 1 tablet/day masspat checked. partial fill permitted, # 5 tablet, Refills 0, Tot. Refills 0, Maintenance, 06/27/20 9:44... Start Date: 06/27/20 Status: Ordered sulindac 150 mg oral tablet 1 tablet = 150 mg, By Mouth, 2 times a day, PRN for pain, # 20 tablet, 0 Refills, Maintenance, 07/20/20 10:20:00 EDT, Tablet, [facility]/pharmacy #[id number], Partial fill upon patient request if the prescriptionis for a schedule II opioid drug., 174, cm, ... Start Date: 07/20/20 Status: Ordered Problem List Condition Effective Dates [...] MESH BARD 3X6IN 7.5X15CM - B SUSANNA ([id number]) 1 [address]ol 29 Unknown ANJELICA:No Information Assigning Authority: FDA
--- OUTSIDE RECORDS SUMMARY | 2022-07-04 14:35 | XMS_ITS | Continuity of Care Document ---
Author Name Unknown Organization [facility] Address [address] [place] [address]- Care Team Providers Care Fur Buyer Name Role Phone Charles LANG, Shabana Joe Primary Care Physician [phone] Encounter [facility] Date(s): 11/15/21 - 12/15/[address] [address]- Attending Physician: Srinivasa Mendieta Admitting Physician: Srinivasa [...] 10/30/21 15:13:00 EDT, Route to Pharmacy Electronically, [facility]/pharmacy #[id number],Partial fill upon patient request if the prescripti... Start Date: 10/30/21 Status: Ordered albuterol CFC free 90 mcg/inh inhalation aerosol 2, puffs, Inhalation, Every 6 hours, PRN, # 1 each, Refills 11, Tot. Refills 11, Maintenance, 10/10/21 9:46:00 EDT, Aerosol, Route to Pharmacy Electronically, [id number], [place], [place] - [id number], 173, c... Start Date: 10/10/21 Stop Date: 10/05/22 Status: Ordered docusate sodium 100 mg oral capsule 1 capsule = 100 mg, By Mouth, 2 times a day, PRN as needed for constipation, # 60 capsule, 0 Refills, Maintenance, 10/30/21 15:12:00 EDT, [place], [facility]/pharmacy #[id number], Partial fill upon patient request if the prescription is for a schedule II opioid dr... Start Date: 10/30/21 Status: Ordered Estrace 2 mg oral tablet 1 tablet = 2 mg, By Mouth, Daily, # 30 tablet, 0 Refills, Maintenance, 10/30/21 15:28:00 EDT, Tablet, [facility]/pharmacy #[id number], Partial fill upon patient request if the prescription is for a schedule II opioid drug., 173, cm, 10/27/21 23:24:00 EDT, Height,... Start Date: 10/30/21 Status: Ordered ibuprofen 600 mg oral tablet 600 mg, 1, tablet, By Mouth, 4 times a day, PRN, # 40 tablet, Refills 0, Tot. Refills 0, Maintenance, for pain, 10/30/21 15:12:00 EDT, Route to Pharmacy Electronically, [facility]/pharmacy #[id number], Partial fill upon patient request if the prescription is for a... Start Date: 10/30/21 Status: Ordered oxyCODONE 5 mg oral capsule 1 capsule = 5 mg, By Mouth, Every 6 hours, PRN as needed for pain, # 10 capsule, 0 Refills, Maintenance, 11/07/21 18:57:00 EDT, [place], [facility]/pharmacy #[id number], Partial fill upon patient request [...] Date: 10/30/21 Status: Ordered Problem List Condition Confirmation Course [...] MRI Safety Implantable Status Assigning Authority Unknown [id number] Unknown 10/04/21 Unknown Unknown Active Unknown Patient Care team information Personnel Name: Charles LANG, Shabana Joe Address: Address: [address] [place] [address]
--- OUTSIDE RECORDS SUMMARY | 2022-07-04 14:35 | XMS_ITS | Continuity of Care Document ---
Author Name Unknown Organization [facility] Address [address] [place] [address]- Care Team Providers Care Customer Support Manager Name Role Phone Shabana Soto MD, I Primary Care Physician Encounter [facility] Date(s): 02/12/22 - 03/28/[address] [address]- Attending Physician: Olga Lidia Quezada MD Admitting Physician: Olga Lidia Quezada MD Allergies, Adverse Reactions, Alerts Substance Reaction Severity [...] 10/30/21 15:13:00 EDT, Route to Pharmacy Electronically, [facility]/pharmacy #[id number],Partial fill upon patient request if the prescripti... Start Date: 10/30/21 Status: Ordered albuterol CFC free 90 mcg/inh inhalation aerosol 2, puffs, Inhalation, Every 6 hours, PRN, # 1 each, Refills 11, Tot. Refills 11, Maintenance, 10/10/21 9:46:00 EDT, Aerosol, Route to Pharmacy Electronically, [id number], [place], [place] - [phone], 173, c... Start Date: 10/10/21 Stop Date: [...] MRI Safety Implantable Status Assigning Authority Unknown [id number] Unknown 10/04/21 Unknown Unknown Active Unknown Patient Care team information Care Team Personnel Name: Mendy Spicer RN Position: [facility] RN Member Role: Primary Care Nurse Name: Ashley Fields RN Position: [facility] MR W/ Merge Member Role: Primary Care Nurse Name: Keith Stacy MD Position: [facility] MULTICULTURAL INTERNSHIP MD Member Role: Lifetime MULTICULTURAL INTERNSHIP Physician Address: Address: [address] [place] [address]- Name: Shabana Soto MD, I Position: [facility] Primary Care Physician Member Role: PCP Address: Address: [address] [place] [address]- Name: Robin Wagner Position: [facility] RN Member Role: Primary Care Nurse Name: Justin Francis RN Position: [facility] RN Member Role: Primary Care Nurse Name: Laya Montes RN Position: [facility] RN Member Role: Primary Care Nurse Name: Alice Juarez RN Position: [facility] RN Member Role: Primary Care Nurse Name: Fela Garcia RN Position: [facility] ED RN W/OE and Tasks Member Role: Primary Care Nurse Name: Anay Rouse RN Position: [facility] RN Member Role: Primary Care Nurse Name: Jennifer Weaver RN Position: [facility] RN Member Role: Primary Care Nurse Name: Megan Grant RN Position: [facility] ED RN W/OE and Tasks Member Role: Primary Care Nurse Name: Eliane Vo RN Position: [facility] RN Member Role: Primary Care Nurse Name: Neda Hernandez RN Position: [facility] PCO RN Member Role: Primary Care Nurse Care Team Related Persons Name: MENDEL MCKEON Address: home [address] [place] [address] Name: GIANA LAMAS Address: home [address] [place] [address] Name: ROSHNI JUÁREZ Address: [place] [address] Name: SINDHU SCHRADER Address: home [address] [place] [address] Name: CRAIG VACA Address: home [address] [place] [address]
--- OUTSIDE RECORDS SUMMARY | 2022-07-04 14:35 | XMS_ITS | Continuity of Care Document ---
Author Name Unknown Organization [facility] Address [address] [place] [address]- Care Team Providers Care Employee'S Representative Name Role Phone Charles LANG, Shabana Joe Primary Care Physician Encounter [facility] Date(s): 04/09/21 - 05/09/[address] [address]- Allergies, Adverse Reactions, Alerts Substance Reaction Severity [...] 06/15/1912:44:37 EDT, Aerosol, Route to Pharmacy Electronically, [id number], [facility]/pharmacy #[id number], Compound Start Date: 06/15/18 Status: Ordered [...] 03/20/20 9:28:00 EST, Route to Pharmacy Electronically, [facility]/pharmacy #[id number], Partial fill upon patient request if the prescription is for a schedule II opioid drug... Start Date: 03/20/20 Status: Ordered fluticasone 50 mcg/inh nasal spray 1 sprays, Nares, Both, 2 times a day, # 16 Gm, 0 Refills, Maintenance, 07/27/19 19:54:00 EDT, [place], [facility]/pharmacy #[id number], 1 sprays Nares, Both 2 times a day, 174, cm, 12/09/18 8:31:00 EDT, Height, 50,kg, 04/10/19 4:52:00 EST, Dry Weight Start Date: 07/27/19 Status: Ordered ibuprofen 600 mg oral tablet 600 mg, 1, tablet, By Mouth, Every 8 hours, # 90 tablet, Refills 2, Tot. Refills 2, Maintenance, 03/05/19 3:09:00 EST, Route to Pharmacy Electronically, [facility]/pharmacy #[id number], 174, cm, 12/09/18 8:31:00 EDT, Height, 52.7, kg, 10/26/18 15:15:00 EDT, Dry We... Start Date: 03/05/19 Status: Ordered loratadine 10 mg oral tablet 10 mg, 1, tablet, By Mouth, Daily, # 30 tablet, Refills 4, Tot. Refills 4, Maintenance, 07/20/20 10:21:00 EDT, Route to Pharmacy Electronically, [facility]/pharmacy #[id number], 174, cm, 07/20/20 9:36:00 EDT, Height, [...] 0 Refills, Maintenance, 08/19/20 21:01:00 EDT, Tablet, [facility]/pharmacy #[id number], Partial fill upon patient request if the [...] MESH BARD 3X6IN 7.5X15CM - B SUSANNA ([id number]) 1 [address] 29 Unknown ANJELICA:No Information Assigning Authority: FDA
--- OUTSIDE RECORDS SUMMARY | 2022-07-04 14:35 | XMS_ITS | Continuity of Care Document ---
Author Name Unknown Organization [facility] Address [address] [place] [address]- Care Team Providers Care Lime Sludge Kiln Operator Name Role Phone Shabana Soto MD, I Primary Care Physician [phone] Encounter [facility] Date(s): 10/26/20 - 10/27/[address] [address]- Discharge Disposition: A-D/C Walkout Attending Physician: Not on Staff, Attending MD Admitting Physician: Not on Staff, Admitting MD Referring Physician: Not on Staff, Referring MD Allergies, Adverse Reactions, Alerts Substance Reaction [...] 06/15/1912:44:37 EDT, Aerosol, Route to Pharmacy Electronically, [id number], [facility]/pharmacy #[id number], Compound Start Date: 06/15/18 Status: Ordered [...] 03/20/20 9:28:00 EST, Route to Pharmacy Electronically, [facility]/pharmacy #[id number], Partial fill upon patient request if the prescription is for a schedule II opioid drug... Start Date: 03/20/20 Status: Ordered fluticasone 50 mcg/inh nasal spray 1 sprays, Nares, Both, 2 times a day, # 16 Gm, 0 Refills, Maintenance, 07/27/19 19:54:00 EDT, [place], [facility]/pharmacy #[id number], 1 sprays Nares, Both 2 times a day, 174, cm, 12/09/18 8:31:00 EDT, Height, 50,kg, 04/10/19 4:52:00 EST, Dry Weight Start Date: 07/27/19 Status: Ordered ibuprofen 600 mg oral tablet 600 mg, 1, tablet, By Mouth, Every 8 hours, # 90 tablet, Refills 2, Tot. Refills 2, Maintenance, 03/05/19 3:09:00 EST, Route to Pharmacy Electronically, [facility]/pharmacy #[id number], 174, cm, 12/09/18 8:31:00 EDT, Height, 52.7, kg, 10/26/18 15:15:00 EDT, Dry We... Start Date: 03/05/19 Status: Ordered loratadine 10 mg oral tablet 10 mg, 1, tablet, By Mouth, Daily, # 30 tablet, Refills 4, Tot. Refills 4, Maintenance, 07/20/20 10:21:00 EDT, Route to Pharmacy Electronically, [facility]/pharmacy #[id number], 174, cm, 07/20/20 9:36:00 EDT, Height, [...] 0 Refills, Maintenance, 08/19/20 21:01:00 EDT, Tablet, [facility]/pharmacy #[id number], Partial fill upon patient request if [...] Active Right inguinal hernia(Confirmed) Active Seizures(Confirmed) Active Results Radiology Reports * Exam Date Time Procedure Performing Provider Status 10/26/20 10:09 PM Chest 2 Views Frontal and Lat Lm munroe Shameka; Auth (Verified) Notes: (Chest 2 Views Frontal and Lat) Reason For Exam: Chest Pain;Other: RESULT: Chest 2 Views Frontal and Lat Chest 2 Views Frontal and Lat INDICATION: left chest pain since this a.m. COMPARISON: 06/18/2019 FINDINGS: LINES AND TUBES: None. LUNGS AND PLEURA: Clear lungs. Normal pulmonary vascularity. No pleural effusion. No pneumothorax. HEART, MEDIASTINUM AND TALI: Heart is normal in size. Normal upper mediastinal and hilar contour. BONES AND SOFT TISSUES: No acute abnormality. IMPRESSION: Normal. I have personally reviewed the images and I agree with this report. WSN: [id number] Ordering Physician: Petrona Moya Dictated By: Osorio Meyers DO Dictated Date/Time: 10/26/20 10:17 p Reviewed By: Alton Carrera MD Signed By: Alton Carrera MD Signed Date/Time: 10/26/20 10:22 pm Transcribed By: KARIE Transcribed Date/Time: 10/26/20 10:12 pm Vital Signs Most recent to oldest [Reference Range]: 1 2 3 Oxygen Saturation [94-100 %] 100 % (10/26/20 11:57 PM) 100 % (10/26/20 8:35 PM) 100 % (10/26/20 7:04 PM) Pulse Rate [55-90 bpm] 82 bpm (10/26/20 11:57 PM) 57 bpm (10/26/20 7:04 PM) 55 bpm (10/26/20 6:42 PM) Blood Pressure [90-138/55-84 mm Hg] 115/65mm Hg (10/26/20 11:57 PM) 114/55mm Hg (10/26/20 7:04 PM) Respiratory Rate [16-30 br/min] 18 br/min (10/26/20 11:57 PM) 18 br/min (10/26/20 7:04 PM) Temperature [96.8-100.4 DegF] 98.3 DegF (10/26/20 11:57 PM) 98.4 DegF (10/26/20 7:04 PM) Liters per Minute 0 L/min (10/26/20 8:35 PM) Mode of Delivery (Oxygen) Room air (10/26/20 11:57 PM) Room air (10/26/20 8:35 PM) Room air (10/26/20 7:04 PM) Blood pressure sites Arm, left (10/26/20 11:57 PM) Arm, left (10/26/20 7:04 PM) Temperature Route Oral (10/26/20 11:57 PM) Oral (10/26/20 7:04 PM) Social History Social History Type Response Smoking Status Current every day sm oker; Type: Cigarettes; Other: 3 cigarettes a day; entered on: 10/10/17 Sex Medical Equipment Implanted Date:02/25/18Target Site:Groin Right Description Quantity MRI Company Model MESH BARD 3X6IN 7.5X15CM - B SUSANNA ([id number]) 1 [address] Davol 29 Unknown ANJELICA:No Information Assigning Authority: FDA
--- OUTSIDE RECORDS SUMMARY | 2022-07-04 14:35 | XMS_ITS | Continuity of Care Document ---
Author Name Unknown Organization [facility] Address [address] [place] [address]- Care Team Providers Care Executive Community Planning Name Role Phone Charles LANG, Shabana Joe Primary Care Physician Encounter [facility] Date(s): 09/13/20 - 12/03/[address] [address]- Attending Physician: Not on Staff, Attending MD Allergies, Adverse Reactions, Alerts Substance Reaction [...] 06/15/1912:44:37 EDT, Aerosol, Route to Pharmacy Electronically, [id number], [facility]/pharmacy #[id number], Compound Start Date: 06/15/18 Status: Ordered [...] 03/20/20 9:28:00 EST, Route to Pharmacy Electronically, [facility]/pharmacy #[id number], Partial fill upon patient request if the prescription is for a schedule II opioid drug... Start Date: 03/20/20 Status: Ordered fluticasone 50 mcg/inh nasal spray 1 sprays, Nares, Both, 2 times a day, # 16 Gm, 0 Refills, Maintenance, 07/27/19 19:54:00 EDT, [place], [facility]/pharmacy #[id number], 1 sprays Nares, Both 2 times a day, 174, cm, 12/09/18 8:31:00 EDT, Height, 50,kg, 04/10/19 4:52:00 EST, Dry Weight Start Date: 07/27/19 Status: Ordered ibuprofen 600 mg oral tablet 600 mg, 1, tablet, By Mouth, Every 8 hours, # 90 tablet, Refills 2, Tot. Refills 2, Maintenance, 03/05/19 3:09:00 EST, Route to Pharmacy Electronically, [facility]/pharmacy #[id number], 174, cm, 12/09/18 8:31:00 EDT, Height, 52.7, kg, 10/26/18 15:15:00 EDT, Dry We... Start Date: 03/05/19 Status: Ordered loratadine 10 mg oral tablet 10 mg, 1, tablet, By Mouth, Daily, # 30 tablet, Refills 4, Tot. Refills 4, Maintenance, 07/20/20 10:21:00 EDT, Route to Pharmacy Electronically, [facility]/pharmacy #[id number], 174, cm, 07/20/20 9:36:00 EDT, Height, [...] 0 Refills, Maintenance, 08/19/20 21:01:00 EDT, Tablet, [facility]/pharmacy #[id number], Partial fill upon patient request if [...] MESH BARD 3X6IN 7.5X15CM - B SUSANNA ([id number]) 1 [address] 29 Unknown ANJELICA:No Information Assigning Authority: FDA
--- OUTSIDE RECORDS SUMMARY | 2022-07-04 14:35 | XMS_ITS | Continuity of Care Document ---
Author Name Unknown Organization [facility] Address [address] [place] [address]- Care Team Providers Care Balance Weigher Name Role Phone Charles LANG, Shabana Joe Primary Care Physician Encounter [facility] Date(s): 12/04/19 - 01/03/[address] [address]- [facility] Allergies, Adverse Reactions, Alerts Substance Reaction Severity [...] 06/15/1912:44:37 EDT, Aerosol, Route to Pharmacy Electronically, [id number], [facility]/pharmacy #[id number], Compound Start Date: 06/15/18 Status: Ordered Colace sodium 100 mg oral capsule 100 mg, 1, capsule, By Mouth, 2 times a day, # 60 capsule, Refills 0, Tot. Refills 0, Maintenance, 02/25/18 13:34:26 EST, Print Requisition Start Date: 02/25/18 Stop Date: 03/27/18 Status: Ordered Flagyl 500 mg oral tablet 1 tablet = 500 mg, By Mouth, 3 times a day, 0 Refills, Maintenance, 08/27/19 6:17:00 EDT Start Date: 08/27/19 Status: Ordered fluticasone 50 mcg/inh nasal spray 1 sprays, Nares, Both, 2 times a day, # 16 Gm, 0 Refills, Maintenance, 07/27/19 19:54:00 EDT, [place], [facility]/pharmacy #[id number], 1 sprays Nares, Both 2 times a day, 174, cm, 12/09/18 8:31:00 EDT, Height, 50,kg, 04/10/19 4:52:00 EST, Dry Weight Start Date: 07/27/19 Status: Ordered ibuprofen 600 mg oral tablet 600 mg, 1, tablet, By Mouth, Every 8 hours, # 90 tablet, Refills 2, Tot. Refills 2, Maintenance, 03/05/19 3:09:00 EST, Route to Pharmacy Electronically, [facility]/pharmacy #[id number], 174, cm, 12/09/18 8:31:00 EDT, Height, 52.7, kg, 10/26/18 15:15:00 EDT, Dry We... Start Date: 03/05/19 Status: Ordered loratadine 10 mg oral tablet 10 mg, 1, tablet, By Mouth, Daily, # 30 tablet, Refills 0, Tot. Refills 0, Maintenance, 07/27/19 19:56:00 EDT, Route to Pharmacy Electronically, [facility]/pharmacy #[id number], 174, cm, 12/09/18 8:31:00 EDT, Height, 50, kg, 04/10/19 4:52:00 EST, Dry Weight Start Date: 07/27/19 Status: Ordered Problem List Condition Effective Dates [...] MESH BARD 3X6IN 7.5X15CM - B SUSANNA ([id number]) 1 [address] 29 Unknown ANJELICA:No Information Assigning Authority: FDA
--- OUTSIDE RECORDS SUMMARY | 2022-07-04 14:35 | XMS_ITS | Continuity of Care Document ---
Author Name Unknown Organization [facility] Address [address] [place] [address]- Care Team Providers Care Automotive Machinist Name Role Phone Charles LANG, Shabana Joe Primary Care Physician Encounter [facility] [place] Date(s): 05/16/22 - 06/15/[address] [address]- Allergies, Adverse Reactions, Alerts Substance Reaction Severity [...] 15:13:00 EDT, Route to Pharmacy Electronically, [facility]/pharmacy #[id number],Partial fill upon patient request if the prescripti... Start Date: 10/30/21 Status: Ordered albuterol CFC free 90 mcg/inh inhalation aerosol 2, puffs, Inhalation, Every 6 hours, PRN, # 1 each, Refills 11, Tot. Refills 11, Maintenance, 10/10/21 9:46:00 EDT, Aerosol, Route to Pharmacy Electronically, [id number], [place], [place] - [id number], 173, c... Start Date: 10/10/21 Stop Date: 10/05/22 Status: Ordered dicyclomine 20 mg oral tablet 1 tablet = 20 mg, By Mouth, 3 times a day, For stomach cramping., # 21 tablet, 0 Refills, Maintenance, 05/24/22 11:58:00 EDT, Tablet, [facility]/pharmacy #[id number], Partial fill upon patient request if [...] 05/26/22 8:45:00 EDT, Route to Pharmacy Electronically, [facility]/pharmacy #[id number], Partial fill upon patient request if the prescription is for a schedule II opio... Start Date: 05/26/22 Status: Ordered famotidine 20 mg oral tablet 20 mg, 1, tablet, By Mouth, 2 times a day, # 180 tablet, Refills 0, Tot. Refills 0, Maintenance, 05/26/22 9:05:00 EDT, Route to Pharmacy Electronically, [facility]/pharmacy #1130, Partial fill upon patient request if the prescription is for a schedule II opi... Start Date: 05/26/22 Status: Ordered omeprazole 40 mg oral enteric coated capsule 1 capsule = 40 mg, By Mouth, Daily, For abdominal pain/ stomach acid/ reflux, # 14 capsule, 0 Refills, Maintenance, 05/24/22 11:59:00 EDT, EC Capsule, [facility]/pharmacy #1130, Partial fill upon patient request if the prescription is for a schedule II opioi... Start Date: 05/24/22 Stop Date: 06/07/22 Status: Ordered ondansetron 4 mg oral tablet, disintegrating 1 tablet = 4 mg, By Mouth, Every 8 hours, PRN as needed for nausea/vomiting, # 12 tablet, 0 Refills, Maintenance, 05/26/22 8:45:00 EDT, DIS Tablet, [facility]/pharmacy #[id number], Partial fill upon patient request if the prescription is for a schedule II opioid d... Start Date: 05/26/22 Status: Ordered ondansetron 4 mg oral tablet, disintegrating 1 tablet = 4 mg, By Mouth, Every 8 hours, PRN as needed for nausea/vomiting, # 14 tablet, 0 Refills, Maintenance, 05/26/22 9:05:00 EDT, DIS Tablet, [facility]/pharmacy #1130, Partial fill upon patient request if the prescription is for a schedule II opioid d... Start Date: 05/26/22 Status: Ordered predniSONE 5 mg oral tablet 1 tablet = 5 mg, By Mouth, Daily, # 5 tablet, 0 Refills, Maintenance, 04/29/22 13:40:00 EST, Tablet, [facility]/pharmacy #1130, Partial fill upon patient request if [...] MRI Safety Implantable Status Assigning Authority Unknown [id number] Unknown 10/04/21 Unknown Unknown Active Unknown Patient Care team information Care Team Personnel Name: Mendy Spicer RN Position: [facility] RN Member Role: Primary Care Nurse Name: Shiela Mays RN Position: [facility] RN Member Role: Primary Care Nurse Name: Ashley Fields RN Position: [facility] MR W/ Merge Member Role: Primary Care Nurse Name: Keith tSacy MD Position: [facility] PLATEMAKER MD Member Role: Lifetime PLATEMAKER Physician Address: Address: [address] [place] [address] Name: Shabana Soto MD, I Position: [facility] Primary Care Physician Member Role: PCP Address: Address: [address] [place] [id number] Name: Robin Wagner Position: [facility] RN Member Role: Primary Care Nurse Name: Justin Francis RN Position: [facility] RN Member Role: Primary Care Nurse Name: Laya Montes RN Position: [facility] RN Member Role: Primary Care Nurse Name: Alice Juarez RN Position: [facility] RN Member Role: Primary Care Nurse Name: Fela Garcia RN Position: [facility] ED RN W/OE and Tasks Member Role: Primary Care Nurse Name: Anay Rouse RN Position: [facility] RN Member Role: Primary Care Nurse Name: Jennifer Weaver RN Position: [facility] RN Member Role: Primary Care Nurse Name: Roxana Young RN Position: [facility] RN Member Role: Primary Care Nurse Name: Megan Grant RN Position: [facility] ED RN W/OE and Tasks Member Role: Primary Care Nurse Name: Eliane Vo RN Position: [facility] RN Member Role: Primary Care Nurse Name: Neda Hernandez RN Position: [facility] PCO RN Member Role: Primary Care Nurse Care Team Related Persons Name: LINDA MENDEL Address: home [address] [address] Name: GIANA LAMAS Address: home [address] [place] [address] Name: ROSHNI JUÁREZ Address: [place] [address] Name: SINDHU SCHRADER Address: home [address] [place] [address] Name: CRAIG VACA Address: home [address] [place] [address]
--- OUTSIDE RECORDS SUMMARY | 2022-07-04 14:35 | XMS_ITS | Continuity of Care Document ---
Author Name Unknown Organization [facility] Address [address] [place] [address]- Care Team Providers Care Clerical Methods Analyst Name Role Phone Charles LANG, Shabana Joe Primary Care Physician Encounter [facility] [place] Date(s): 05/16/21 - 06/15/[address] [address]- Attending Physician: Srinivasa Mendieta Admitting Physician: Srinivasa [...] 06/15/1912:44:37 EDT, Aerosol, Route to Pharmacy Electronically, [id number], [facility]/pharmacy #[id number], Compound Start Date: 06/15/18 Status: Ordered [...] 03/20/20 9:28:00 EST, Route to Pharmacy Electronically, [facility]/pharmacy #[id number], Partial fill upon patient request if the prescription is for a schedule II opioid drug... Start Date: 03/20/20 Status: Ordered fluticasone 50 mcg/inh nasal spray 1 sprays, Nares, Both, 2 times a day, # 16 Gm, 0 Refills, Maintenance, 07/27/19 19:54:00 EDT, [place], [facility]/pharmacy #[id number], 1 sprays Nares, Both 2 times a day, 174, cm, 12/09/18 8:31:00 EDT, Height, 50,kg, 04/10/19 4:52:00 EST, Dry Weight Start Date: 07/27/19 Status: Ordered ibuprofen 600 mg oral tablet 600 mg, 1, tablet, By Mouth, Every 8 hours, # 90 tablet, Refills 2, Tot. Refills 2, Maintenance, 03/05/19 3:09:00 EST, Route to Pharmacy Electronically, [facility]/pharmacy #[id number], 174, cm, 12/09/18 8:31:00 EDT, Height, 52.7, kg, 10/26/18 15:15:00 EDT, Dry We... Start Date: 03/05/19 Status: Ordered loratadine 10 mg oral tablet 10 mg, 1, tablet, By Mouth, Daily, # 30 tablet, Refills 4, Tot. Refills 4, Maintenance, 07/20/20 10:21:00 EDT, Route to Pharmacy Electronically, [facility]/pharmacy #[id number], 174, cm, 07/20/20 9:36:00 EDT, Height, [...] Refills, Maintenance, 08/19/20 21:01:00 EDT, Tablet, [id number], Partial fill upon patient request if the prescriptionis for a schedule II opioid drug., 174, cm, 2... Start Date: 08/19/20 Status: Ordered Problem List [...] MESH BARD 3X6IN 7.5X15CM - B SUSANNA ([id number]) 1 [address] 29 Unknown ANJELICA:No Information Assigning Authority: FDA
--- OUTSIDE RECORDS SUMMARY | 2022-07-04 14:35 | XMS_ITS | Continuity of Care Document ---
Author Name Unknown Organization [facility] ter Address [address] [place] [address]- Care Team Providers Care Office Supervisor Name Role Phone Shabana Soto MD, I Primary Care Physician [phone] Encounter [facility] [place] Date(s): 10/27/21 - 10/28/[address] [address]- Encounter Diagnosis Pseudoseizure(Final) - 10/28/21 Discharge Disposition: A-D/C Home Attending Physician: Mariam Franco MD Admitting Physician: Mariam Franco MD Referring Physician: Not on Staff, Referring [...] 9:46:00 EDT, Aerosol, Route to Pharmacy Electronically, [id number], [place], [place] - [id number], 173, c... 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 Fall from slip, trip, or stumble(Confirmed) Active Status post tubal ligation(C onfirmed) 1 Active Left inguinal hernia(Confirmed) Active Right inguinal hernia(Confirmed) Active Seizures(Confirmed) Active Underweight(Confirmed) Active Vital Signs Most recent to oldest [Reference Range]: 1 2 Height 173 cm (10/27/21 11:24 PM) Weight 53 kg (10/27/21 11:24 PM) Oxygen Saturation [94-100 %] 100 % (10/28/21 3:23 AM) 97 % (10/27/21 11:24 PM) Pulse Rate [55-90 bpm] 64 bpm (10/28/21 3:23 AM) 81 bpm (10/27/21 11:24 PM) Blood Pressure [90-138/55-84 mm Hg] 109/ 85mm Hg (10/28/21 3:23 AM) 131/81mm Hg (10/27/21 11:24 PM) Respiratory Rate [16-30 br/min] 16 br/mi n (10/28/21 3:23 AM) 16 br/min (10/27/21 11:24 PM) Temperature [96.8-100.4 DegF] 98 DegF (10/27/21 11:24 PM) Mode of Delivery (Oxygen) Room air (10/28/21 3:23 AM) Room air (10/27/21 11:24 PM) Blood pressure sites Arm, left (10/28/21 3:23 AM) Arm, left (10/27/21 11:24 PM) Temperature Route Oral (10/27/21 11:24 PM) Dry Weight 53 kg (10/27/21 11:24 PM) Weight Obtained Via Patient/family state d (10/27/21 11:24 PM) Social History Social History Type Response Smoking Status Current every day yolis frazier; Type: Cigarettes; Other: 3 cigarettes a day; entered on: 10/10/17 Sex Medical Equipment Implanted Date:02/25/18Target Site:Groin Right Description Quantity MRI Company Model MESH BARD 3X6IN 7.5X15CM - B SUSANNA ([id number]) 1 [address] 29 Unknown ANJELICA:No Information Assigning Authority: FDA
--- OUTSIDE RECORDS SUMMARY | 2022-07-04 14:35 | XMS_ITS | Continuity of Care Document ---
Author Name Unknown Organization [facility] Address [address] [place] [address]- Care Team Providers Care Smoking Tobacco Packing Machine Hand Name Role Phone Charles LANG, Shabana Joe Primary Care Physician [phone] Encounter [facility] Date(s): 08/27/21 - 09/26/[address] [address]- Allergies, Adverse Reactions, Alerts Substance Reaction Severity [...] 06/15/1912:44:37 EDT, Aerosol, Route to Pharmacy Electronically, [id number], [facility]/pharmacy #[id number], Compound Start Date: 06/15/18 Status: Ordered [...] 03/20/20 9:28:00 EST, [id number], Partial fill upon patient request if the prescription is for a schedule II opioid drug... Start Date: 03/20/20 Status: Ordered fluticasone 50 mcg/inh nasal spray 1 sprays, Nares, Both, 2 times a day, # 16 Gm, 0 Refills, Maintenance, 07/27/19 19:54:00 EDT, [place], [facility]/pharmacy #[id number], 1 sprays Nares, Both 2 times a day, 174, cm, 12/09/18 8:31:00 EDT, Height, 50,kg, 04/10/19 4:52:00 EST, Dry Weight Start Date: 07/27/19 Status: Ordered ibuprofen 600 mg oral tablet 600 mg, 1, tablet, By Mouth, Every 8 hours, # 90 tablet, Refills 2, Tot. Refills 2, Maintenance, 03/05/19 3:09:00 EST, Route to Pharmacy Electronically, [facility]/pharmacy #[id number], 174, cm, 12/09/18 8:31:00 EDT, Height, 52.7, kg, 10/26/18 15:15:00 EDT, Dry We... Start Date: 03/05/19 Status: Ordered loratadine 10 mg oral tablet 10 mg, 1, tablet, By Mouth, Daily, # 30 tablet, Refills 4, Tot. Refills 4, Maintenance, 07/20/20 10:21:00 EDT, Route to Pharmacy Electronically, [facility]/pharmacy #[id number], 174, cm, 07/20/20 9:36:00 EDT, Height, 50.1, kg, 10/14/19 23:21:00 EDT, Dry Weight Start Date: 07/20/20 Stop Date: 12/17/20 Status: Ordered meclizine 25 mg oral tablet 1 tablet = 25 mg, By Mouth, 2 times a day, # 10 tablet, 0 Refills, Acute 07/30/22 15:45:00 EDT, 07/29/21 15:45:00 EDT, Tablet, [facility]/pharmacy #[id number], Partial fill upon patient request if the prescription is for a schedule II opioid drug., 173, cm, ... Start Date: 07/29/21 Stop Date: 07/30/22 Status: Ordered oxyCODONE 5 mg oral tablet [...] Tot. Refills 0, Maintenance, endometr... Start Date: 08/23/21 Status: Ordered oxyCODONE 5 mg oral tablet [...] Refills, Maintenance, 08/19/20 21:01:00 EDT, Tablet, [id number], Partial fill upon patient request [...] MESH BARD 3X6IN 7.5X15CM - B SUSANNA ([id number]) 1 [address] 29 Unknown ANJELICA:No Information Assigning Authority: FDA
--- OUTSIDE RECORDS SUMMARY | 2022-07-04 14:35 | XMS_ITS | Continuity of Care Document ---
Author Name Unknown Organization [facility] ter Address [address] [place] [address]- Care Team Providers Care Rn Charge Name Role Phone Shabana Soto MD, I Primary Care Physician [phone] Encounter [facility] [place] Date(s): 07/14/21 - 07/14/[address] [address]- Encounter Diagnosis Headache(Final) - 07/14/21 Discharge Disposition: A-D/C Home Attending Physician: Roque Teran DO Admitting Physician: Roque Teran DO Referring Physician: Not on Staff, Referring MD [...] 06/15/1912:44:37 EDT, Aerosol, Route to Pharmacy Electronically, [id number], [facility]/pharmacy #[id number], Compound Start Date: 06/15/18 Status: [...] 03/20/20 9:28:00 EST, Route to Pharmacy Electronically, [facility]/pharmacy #[id number], Partial fill upon patient request if the prescription is for a schedule II opioid drug... Start Date: 03/20/20 Status: Ordered fluticasone 50 mcg/inh nasal spray 1 sprays, Nares, Both, 2 times a day, # 16 Gm, 0 Refills, Maintenance, 07/27/19 19:54:00 EDT, [place], [facility]/pharmacy #[id number], 1 sprays Nares, Both 2 times a day, 174, cm, 12/09/18 8:31:00 EDT, Height, 50,kg, 04/10/19 4:52:00 EST, Dry Weight Start Date: 07/27/19 Status: Ordered ibuprofen 200 mg oral tablet 400 mg, 2, tablet, By Mouth, Every 4 hours, PRN, # 120 tablet, Refills 0, Tot. Refills 0, Acute 07/16/21 12:51:00 EDT, for fever, 07/14/21 12:51:00 EDT, Route to Pharmacy Electronically, [facility]/pharmacy#[id number], Partial fill upon patient request if the pre... Start Date: 07/14/21 Stop Date: 07/16/21 Status: Ordered ibuprofen 600 mg oral tablet 600 mg, 1, tablet, By Mouth, Every 8 hours, # 90 tablet, Refills 2, Tot. Refills 2, Maintenance, 03/05/19 3:09:00 EST, [id number], 174, cm, 12/09/18 8:31:00 EDT, Height, 52.7, kg, 10/26/18 15:15:00 EDT, Dry We... Start Date: 03/05/19 Status: Ordered loratadine 10 mg oral tablet 10 mg, 1, tablet, By Mouth, Daily, # 30 tablet, Refills 4, Tot. Refills 4, Maintenance, 07/20/20 10:21:00 EDT, [facility] Pharm[facility] Electronically[id number], 174, cm, 07/20/20 9:36:00 EDT, Height, [...] Maintenance, endometr... Start Date: 01/05/21 Status: Ordered Reglan 10 mg oral tablet 1 tablet = 10 mg, By Mouth, 4 times a day, # 12 tablet, 0 Refills, Acute 07/17/21 12:51:00 EDT, 07/14/21 12:51:00 EDT, Tablet, [id number], Partial fill upon patient request if the prescription is for a schedule II opioid drug., 158, cm, ... Start Date: 07/14/21 Stop Date: 07/17/21 Status: Ordered sulindac 150 mg oral tablet 1 tablet = 150 mg, By Mouth, 2 times a day, PRN for pain, # 20 tablet, 0 Refills, Maintenance, 08/19/20 21:01:00 EDT, Tablet, [id number], Partial fill upon patient request if the prescriptionis for a schedule II opioid drug., 174, cm, ... Start Date: 08/19/20 Status: Ordered Tylenol 325 mg oral capsule 2 capsule = 650 mg, By Mouth, Every 4 hours, PRN as needed for pain, # 90 capsule, 0 Refills, Acute07/17/21 12:52:00 EDT, 07/14/21 12:51:00 EDT, Capsule, [id number], Partial fill upon patient request if the prescription is for a schedule II o... 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 Fall from slip, trip, or stumble(Confirmed) Active Status post tubal ligation(C onfirmed) 1 Active Left inguinal hernia(Confirmed) Active Right inguinal hernia(Confirmed) Active Seizures(Confirmed) Active Vital Signs Most recent to oldest [Reference Range]: 1 2 Oxygen Saturation [94-100 %] 100 % (07/14/21 12:44 PM) 100 % (07/14/21 9:51 AM) Pulse Rate [55-90 bpm] 83 bpm (07/14/21 12:44 PM) 77 bpm (07/14/21 9:51 AM) Blood Pressure [90-138/55-84 mm Hg] 121/ 73mm Hg (07/14/21 12:44 PM) 135/80mm Hg (07/14/21 9:51 AM) Respiratory Rate [16-30 br/min] 18 br/mi n (07/14/21 12:44 PM) 18 br/min (07/14/21 9:51 AM) Temperature [96.8-100.4 DegF] 97.7 DegF (07/14/21 12:44 PM) 98.1 DegF (07/14/21 9:51 AM) Mode of Delivery (Oxygen) Room air (07/14/21 12:44 PM) Room air (07/14/21 9:51 AM) Blood pressure sites Arm, left (07/14/21 12:44 PM) Arm, right (07/14/21 9:51 AM) Temperature Route Oral (07/14/21 12:44 PM) Oral (07/14/21 9:51 AM) Social History Social History Type Response Smoking Status Current every day yolis oker; Type: Cigarettes; Other: 3 cigarettes a day; entered on: 10/10/17 Sex Medical Equipment Implanted Date:02/25/18Target Site:Groin Right Description Quantity MRI Company Model MESH BARD 3X6IN 7.5X15CM - B SUSANNA ([id number]) 1 [address] 29 Unknown ANJELICA:No Information Assigning Authority: FDA
--- OUTSIDE RECORDS SUMMARY | 2022-07-04 14:35 | XMS_ITS | Continuity of Care Document ---
Author Name Unknown Organization [facility] Address [address] [place] [address]- Care Team Providers Care Head Cashier Name Role Phone Charles LANG, Shabana Joe Primary Care Physician Encounter [facility] Date(s): 06/08/21 - 07/08/[address] [address]- Allergies, Adverse Reactions, Alerts Substance Reaction Severity [...] 06/15/1912:44:37 EDT, Aerosol, Route to Pharmacy Electronically, [id number], [facility]/pharmacy #[id number], Compound Start Date: 06/15/18 Status: [...] 03/20/20 9:28:00 EST, [id number] Partial fill upon patient request if the prescription is for a schedule II opioid drug... Start Date: 03/20/20 Status: Ordered fluticasone 50 mcg/inh nasal spray 1 sprays, Nares, Both, 2 times a day, # 16 Gm, 0 Refills, Maintenance, 07/27/19 19:54:00 EDT, [place], [facility]/pharmacy #[id number], 1 sprays Nares, Both 2 times a day, 174, cm, 12/09/18 8:31:00 EDT, Height, 50,kg, 04/10/19 4:52:00 EST, Dry Weight Start Date: 07/27/19 Status: Ordered ibuprofen 600 mg oral tablet 600 mg, 1, tablet, By Mouth, Every 8 hours, # 90 tablet, Refills 2, Tot. Refills 2, Maintenance, 03/05/19 3:09:00 EST, Route to Pharmacy Electronically, [facility]/pharmacy #[id number], 174, cm, 12/09/18 8:31:00 EDT, Height, 52.7, kg, 10/26/18 15:15:00 EDT, Dry We... Start Date: 03/05/19 Status: Ordered loratadine 10 mg oral tablet 10 mg, 1, tablet, By Mouth, Daily, # 30 tablet, Refills 4, Tot. Refills 4, Maintenance, 07/20/20 10:21:00 EDT, Route to Pharmacy Electronically, [facility]/pharmacy #[id number], 174, cm, 07/20/20 9:36:00 EDT, [...] Refills, Maintenance, 08/19/20 21:01:00 EDT, Tablet, [id number], Partial fill upon patient request if the [...] MESH BARD 3X6IN 7.5X15CM - B SUSANNA ([id number]) 1 [address] 29 Unknown ANJELICA:No Information Assigning Authority: FDA
--- OUTSIDE RECORDS SUMMARY | 2022-07-04 14:35 | XMS_ITS | Continuity of Care Document ---
Author Name Unknown Organization [facility] Address [address] [place] [address]- Care Team Providers Care Stencil Cutter Machine Name Role Phone Charles LANG, Shabana Joe Primary Care Physician Encounter [facility] Date(s): 03/06/21 - 04/05/[address] [address]- Allergies, Adverse Reactions, Alerts Substance Reaction Severity [...] 06/15/1912:44:37 EDT, Aerosol, Route to Pharmacy Electronically, [id number], [facility]/pharmacy #[id number], Compound Start Date: 06/15/18 [...] 03/20/20 9:28:00 EST, Route to Pharmacy Electronically, [facility]/pharmacy #[id number], Partial fill upon patient request if the prescription is for a schedule II opioid drug... Start Date: 03/20/20 Status: Ordered fluticasone 50 mcg/inh nasal spray 1 sprays, Nares, Both, 2 times a day, # 16 Gm, 0 Refills, Maintenance, 07/27/19 19:54:00 EDT, [place], [facility]/pharmacy #[id number], 1 sprays Nares, Both 2 times a day, 174, cm, 12/09/18 8:31:00 EDT, Height, 50,kg, 04/10/19 4:52:00 EST, Dry Weight Start Date: 07/27/19 Status: Ordered ibuprofen 600 mg oral tablet 600 mg, 1, tablet, By Mouth, Every 8 hours, # 90 tablet, Refills 2, Tot. Refills 2, Maintenance, 03/05/19 3:09:00 EST, Route to Pharmacy Electronically, [facility]/pharmacy #[id number], 174, cm, 12/09/18 8:31:00 EDT, Height, 52.7, kg, 10/26/18 15:15:00 EDT, Dry We... Start Date: 03/05/19 Status: Ordered loratadine 10 mg oral tablet 10 mg, 1, tablet, By Mouth, Daily, # 30 tablet, Refills 4, Tot. Refills 4, Maintenance, 07/20/20 10:21:00 EDT, Route to Pharmacy Electronically, [facility]/pharmacy #[id number], 174, cm, 07/20/20 9:36:00 EDT, [...] Tot. Refills 0, Maintenance, endometr... Start Date: 02/20/21 Status: Ordered oxyCODONE 5 mg oral tablet [...] 0 Refills, Maintenance, 08/19/20 21:01:00 EDT, Tablet, [facility]/pharmacy #[id number], Partial fill upon patient request if the [...] MESH BARD 3X6IN 7.5X15CM - B SUSANNA ([id number]) 1 [address] 29 Unknown ANJELICA:No Information Assigning Authority: FDA
--- OUTSIDE RECORDS SUMMARY | 2022-07-04 14:35 | XMS_ITS | Continuity of Care Document ---
Author Name Unknown Organization [facility] Address [address] [place] [address]- Care Team Providers Care Buggy Man Name Role Phone Charles LANG, Shabana Joe Primary Care Physician [phone] Encounter [facility] Date(s): 08/23/21 - 09/22/[address] [address]- Allergies, Adverse Reactions, Alerts Substance Reaction Severity [...] 06/15/1912:44:37 EDT, Aerosol, Route to Pharmacy Electronically, [id number], [facility]/pharmacy #[id number], Compound Start Date: 06/15/18 [...] 03/20/20 9:28:00 EST, [id number] Partial fill upon patient request if the prescription is for a schedule II opioid drug... Start Date: 03/20/20 Status: Ordered fluticasone 50 mcg/inh nasal spray 1 sprays, Nares, Both, 2 times a day, # 16 Gm, 0 Refills, Maintenance, 07/27/19 19:54:00 EDT, [place], [facility]/pharmacy #[id number], 1 sprays Nares, Both 2 times a day, 174, cm, 12/09/18 8:31:00 EDT, Height, 50,kg, 04/10/19 4:52:00 EST, Dry Weight Start Date: 07/27/19 Status: Ordered ibuprofen 600 mg oral tablet 600 mg, 1, tablet, By Mouth, Every 8 hours, # 90 tablet, Refills 2, Tot. Refills 2, Maintenance, 03/05/19 3:09:00 EST, Route to Pharmacy Electronically, [facility]/pharmacy #[id number], 174, cm, 12/09/18 8:31:00 EDT, Height, 52.7, kg, 10/26/18 15:15:00 EDT, Dry We... Start Date: 03/05/19 Status: Ordered loratadine 10 mg oral tablet 10 mg, 1, tablet, By Mouth, Daily, # 30 tablet, Refills 4, Tot. Refills 4, Maintenance, 07/20/20 10:21:00 EDT, Route to Pharmacy Electronically, [facility]/pharmacy #[id number], 174, cm, 07/20/20 9:36:00 EDT, Height, 50.1, kg, 10/14/19 23:21:00 EDT, Dry Weight Start Date: 07/20/20 Stop Date: 12/17/20 Status: Ordered meclizine 25 mg oral tablet 1 tablet = 25 mg, By Mouth, 2 times a day, # 10 tablet, 0 Refills, Acute 07/30/22 15:45:00 EDT, 07/29/21 15:45:00 EDT, Tablet, [facility]/pharmacy #[id number], Partial fill upon patient request if the [...] MESH BARD 3X6IN 7.5X15CM - B SUSANNA ([id number]) 1 Bard Davol 29 Unknown ANJELICA:No Information Assigning Authority: FDA
--- OUTSIDE RECORDS SUMMARY | 2022-07-04 14:35 | XMS_ITS | Continuity of Care Document ---
Author Name Unknown Organization [facility] ter Address [address] [place] [address]- Care Team Providers Care Wheel And Caster Repairer Name Role Phone Charles LANG, Shabana Joe Primary Care Physician [place] [facility] [place] - 08/03/[address] [address]- [facility] Encounter Diagnosis Endometriosis(Final) - 08/03/19 Discharge Disposition: A-D/C Home Attending Physician: Nahum Painter MD Admitting Physician: Nahum Painter MD Referring Physician: Not on Staff, Referring [...] 06/15/1912:44:37 EDT, Aerosol, Route to Pharmacy Electronically, [id number], [facility]/pharmacy #[id number], Compound Start Date: 06/15/18 Status: Ordered Colace sodium 100 mg oral capsule 100 mg, 1, capsule, By Mouth, 2 times a day, # 60 capsule, Refills 0, Tot. Refills 0, Maintenance, 02/25/18 13:34:26 EST, Print Requisition Start Date: 02/25/18 Stop Date: 03/27/18 Status: Ordered fluticasone 50 mcg/inh nasal spray 1 sprays, Nares, Both, 2 times a day, # 16 Gm, 0 Refills, Maintenance, 07/27/19 19:54:00 EDT, [place], [facility]/pharmacy #[id number], 1 sprays Nares, Both 2 times a day, 174, cm, 12/09/18 8:31:00 EDT, Height, 50,kg, 04/10/19 4:52:00 EST, Dry Weight Start Date: 07/27/19 Status: Ordered ibuprofen 600 mg oral tablet 600 mg, 1, tablet, By Mouth, Every 8 hours, # 90 tablet, Refills 2, Tot. Refills 2, Maintenance, 03/05/19 3:09:00 EST, Route to Pharmacy Electronically, [facility]/pharmacy #[id number], 174, cm, 12/09/18 8:31:00 EDT, [...] Right inguinal hernia(Confirmed) Active Seizures(Confirmed) Active Results Orders for Microbiology Reports Name Date Wet Prep 08/03/19 Microbiology Reports TEST:Wet Prep STATUS:Auth (Verified) BODY SITE: SOURCE:VAGINA COLLECTED DATE/TIME:08/03/19 9:00 AM Wet Prep SPECIMEN DESCRIPTION : VAGINAL SPECIMEN SPECIAL REQUESTS : NONE DIRECT EXAM : 3+ WHITE BLOOD CELLS NO TRICHOMONAS,YEAST,OR CLUE CELLS OBSERVED REPORT STATUS : FINAL 08/03/2019 Vital Signs Most recent to oldest [Reference Range]: 1 2 3 Oxygen Saturation [94-100 %] 100 % (08/03/19 12:58 PM) 100 % (08/03/19 10:00 AM) 99 % (08/03/19 6:30 AM) Pulse Rate [55-90 bpm] 62 bpm (08/03/19 12:58 PM) 55 bpm (08/03/19 10:00 AM) 75 bpm (08/03/19 6:30 AM) Blood Pressure [90-138/55-84 mm Hg] 119/78mm Hg (08/03/19 12:58 PM) 117/74mm Hg (08/03/19 10:00 AM) 131/88mm Hg (08/03/19 6:30 AM) Respiratory Rate [16-30 br/min] 19 br/min (08/03/19 12:58 PM) 24 br/min (08/03/19 6:30 AM) Temperature [96.8-100.4 DegF] 97.5 DegF (08/03/19 10:00 AM) 97.5 DegF (08/03/19 6:30 AM) Mode of Delivery (Oxygen) Room air (08/03/19 12:58 PM) Room air (08/03/19 10:00 AM) Room air (08/03/19 6:30 AM) Blood pressure sites Arm, left (08/03/19 12:58 PM) Arm, left (08/03/19 10:00 AM) Arm, right (08/03/19 6:30 AM) Temperature Route Oral (08/03/19 10:00 AM) Oral (08/03/19 6:30 AM) Social History Social History Type Response Smoking Status Current every day sm bether; Type: Cigarettes; Other: 3 cigarettes a day; entered on: 10/10/17 Sex Medical Equipment Implanted Date:02/25/18Target Site:Groin Right Description Quantity MRI Company Model MESH BARD 3X6IN 7.5X15CM - B SUSANNA ([id number]) 1 Bard Davol 29 Unknown ANJELICA:No Information Assigning Authority: FDA
--- OUTSIDE RECORDS SUMMARY | 2022-07-04 14:35 | XMS_ITS | Continuity of Care Document ---
Author Name Unknown Organization [facility] ter Address [address] [place] [address]- Care Team Providers Care University Counselor Name Role Phone Shabana Soto MD, I Primary Care Physician [place] [facility] [place] - 10/27/[address] [address]- Discharge Disposition: A-D/C Walkout Attending Physician: Not [...] 06/15/1912:44:37 EDT, Aerosol, Route to Pharmacy Electronically, [id number], [facility]/pharmacy #[id number], Compound Start Date: 06/15/18 [...] 03/20/20 9:28:00 EST, Route to Pharmacy Electronically, [facility]/pharmacy #[id number], Partial fill upon patient request if the prescription is for a schedule II opioid drug... Start Date: 03/20/20 Status: Ordered fluticasone 50 mcg/inh nasal spray 1 sprays, Nares, Both, 2 times a day, # 16 Gm, 0 Refills, Maintenance, 07/27/19 19:54:00 EDT, [place], [facility]/pharmacy #[id number], 1 sprays Nares, Both 2 times a day, 174, cm, 12/09/18 8:31:00 EDT, Height, 50,kg, 04/10/19 4:52:00 EST, Dry Weight Start Date: 07/27/19 Status: Ordered ibuprofen 600 mg oral tablet 600 mg, 1, tablet, By Mouth, Every 8 hours, # 90 tablet, Refills 2, Tot. Refills 2, Maintenance, 03/05/19 3:09:00 EST, Route to Pharmacy Electronically, [facility]/pharmacy #[id number], 174, cm, 12/09/18 8:31:00 EDT, Height, 52.7, kg, 10/26/18 15:15:00 EDT, Dry We... Start Date: 03/05/19 Status: Ordered loratadine 10 mg oral tablet 10 mg, 1, tablet, By Mouth, Daily, # 30 tablet, Refills 4, Tot. Refills 4, Maintenance, 07/20/20 10:21:00 EDT, Route to Pharmacy Electronically, [facility]/pharmacy #[id number], 174, cm, 07/20/20 9:36:00 EDT, [...] 0 Refills, Maintenance, 08/19/20 21:01:00 EDT, Tablet, [facility]/pharmacy #[id number], Partial fill upon [...] 3 Oxygen Saturation [94-100 %] 100 % (10/27/20 3:41 PM) 100 % (10/27/20 12:40 PM) 100 % (10/27/20 12:16 PM) Pulse Rate [55-90 bpm] 50 bpm *L* (10/27/20 3:41 PM) 56 bpm (10/27/20 12:40 PM) 82 bpm (10/27/20 12:16 PM) Blood Pressure [90-138/55-84 mm Hg] 143/77mm Hg *H* (10/27/20 3:41 PM) 137/57mm Hg (10/27/20 12:40 PM) Respiratory Rate [16-30 br/min] 16 br/min (10/27/20 3:41 PM) 20 br/min (10/27/20 12:40 PM) Temperature [96.8-100.4 DegF] 97.8 DegF (10/27/20 3:41 PM) 97.6 DegF (10/27/20 12:40 PM) Liters per Minute 0 L/min (10/27/20 12:16 PM) Mode of Delivery (Oxygen) Room air (10/27/20 3:41 PM) Room air (10/27/20 12:40 PM) Room air (10/27/20 12:16 PM) Blood pressure sites Arm, right (10/27/20 3:41 PM) Arm, left (10/27/20 12:40 PM) Temperature Route Oral (10/27/20 3:41 PM) Oral (10/27/20 12:40 PM) Social History Social History Type Response Smoking Status Current every day sm oker; Type: Cigarettes; Other: 3 cigarettes a day; entered on: 10/10/17 Sex Medical Equipment Implanted Date:02/25/18Target Site:Groin Right Description Quantity MRI Company Model MESH BARD 3X6IN 7.5X15CM - B SUSANNA ([id number]) 1 Bard Davol 29 Unknown ANJELICA:No Information Assigning Authority: FDA
--- OUTSIDE RECORDS SUMMARY | 2022-07-04 14:35 | XMS_ITS | Continuity of Care Document ---
Author Name Unknown Organization [facility] Address [address] [place] [address]- Care Team Providers Care Kohinoor Operator Name Role Phone Charles LANG, Shabana Joe Primary Care Physician [phone] Encounter [facility] [place] Date(s): 03/12/22 - 04/11/[address] [address]- Allergies, Adverse Reactions, Alerts Substance Reaction Severity [...] 10/30/21 15:13:00 EDT, Route to Pharmacy Electronically, [facility]/pharmacy #[id number],Partial fill upon patient request if the prescripti... Start Date: 10/30/21 Status: Ordered albuterol CFC free 90 mcg/inh inhalation aerosol 2, puffs, Inhalation, Every 6 hours, PRN, # 1 each, Refills 11, Tot. Refills 11, Maintenance, 10/10/21 9:46:00 EDT, Aerosol, Route to Pharmacy Electronically, [id number], [place], [place] - [phone], 173, c... Start Date: 10/10/21 Stop Date: [...] MRI Safety Implantable Status Assigning Authority Unknown [id number] Unknown 10/04/21 Unknown Unknown Active Unknown Patient Care team information Care Team Personnel Name: Mendy Spicer RN Position: [facility] RN Member Role: Primary Care Nurse Name: Ashley Fields RN Position: S MR W/ Merge Member Role: Primary Care Nurse Name: Keith Stacy MD Position: [facility] COSTUME MAKER MD Member Role: Lifetime COSTUME MAKER Physician Address: Address: [address] [place] [address]- [place] Name: Shabana Soto MD, I Position: [facility] Primary Care Physician Member Role: PCP Address: Address: [address] [place] [address]- Name: Robin Wagner Position: [facility] RN Member Role: Primary Care Nurse Name: Justin Francis RN Position: [facility] RN Member Role: Primary Care Nurse Name: Laya Montes RN Position: [facility] RN Member Role: Primary Care Nurse Name: Alice Juarez RN Position: [facility] RN Member Role: Primary Care Nurse Name: Fela Garcia RN Position: [facility] ED RN W/OE and Tasks Member Role: Primary Care Nurse Name: Anay Rouse RN Position: [facility] RN Member Role: Primary Care Nurse Name: Jennifer Weaver RN Position: [facility] RN Member Role: Primary Care Nurse Name: Megan rGant RN Position: [facility] ED RN W/OE and Tasks Member Role: Primary Care Nurse Name: Eliane Vo RN Position: [facility] RN Member Role: Primary Care Nurse Name: Neda Hernandez RN Position: [facility] PCO RN Member Role: Primary Care Nurse Care Team Related Persons Name: MENDEL MCKEON Address: home [address] [address] Name: GIANA LAMAS Address: home [address] [place] [address] Name: ROSHNI JUÁREZ Address: [place] [address] Name: SINDHU SCHRADER Address: home [address] [place] [address] Name: CRAIG VACA Address: home [address] [place] [address]
--- OUTSIDE RECORDS SUMMARY | 2022-07-04 14:35 | XMS_ITS | Continuity of Care Document ---
Author Name Unknown Organization [facility] ter Address [address] [place] [address]- Care Team Providers Care Databases Software Consultant Name Role Phone Shabana Soto MD, I Primary Care Physician [phone] [place] [facility] [place](s): 10/25/21 - 10/25/[address] [address]- Encounter Diagnosis Abdominal pain(Final) - 10/25/21 Endometriosis(Final) - 10/25/21 Headache(Final) - 10/25/21 Discharge Disposition: A-D/C Home Attending Physician: Manjeet Rutherford MD Admitting Physician: Manjeet Rutherford MD Referring Physician: Not on Staff, Referring [...] 9:46:00 EDT, Aerosol, Route to Pharmacy Electronically, [id number], [place], [place] - [phone], 173, c... Start Date: 10/10/21 Stop Date: [...] [Reference Range]: 1 2 Height 173 cm (10/25/21 10:29 AM) Weight 51 kg (10/25/21 10:29 AM) Oxygen Saturation [94-100 %] 100 % (10/25/21 2:38 PM) 99 % (10/25/21 10:29 AM) Pulse Rate [55-90 bpm] 51 bpm *L* (10/25/21 2:38 PM) 89 bpm (10/25/21 10:29 AM) Body Mass Index [18.5-24.99] 17.04 *L* (10/25/21 10:29 AM) Blood Pressure [90-138/55-84 mm Hg] 112/ 56mm Hg (10/25/21 2:38 PM) 130/71mm Hg (10/25/21 10:29 AM) Respiratory Rate [16-30 br/min] 16 br/mi n (10/25/21 2:38 PM) 16 br/min (10/25/21 10:29 AM) Temperature [96.8-100.4 DegF] 98.1 DegF (10/25/21 2:38 PM) 98.6 DegF (10/25/21 10:29 AM) Mode of Delivery (Oxygen) Room air (10/25/21 2:38 PM) Room air (10/25/21 10:29 AM) Blood pressure sites Arm, right (10/25/21 2:38 PM) Arm, right (10/25/21 10:29 AM) Temperature Route Oral (10/25/21 2:38 PM) Oral (10/25/21 10:29 AM) Dry Weight 51 kg (10/25/21 10:29 AM) Weight Obtained Via Patient/family state d (10/25/21 10:29 AM) Dry Weight Obtained Via Patient/family s tated (10/25/21 10:29 AM) Social History Social History Type Response Smoking Status Current every day yolis frazier; Type: Cigarettes; Other: 3 cigarettes a day; entered on: 10/10/17 Sex Medical Equipment Implanted Date:02/25/18Target Site:Groin Right Description Quantity MRI Company Model MESH BARD 3X6IN 7.5X15CM - B SUSANNA ([id number]) 1 Bard Davol 29 Unknown ANJELICA:No Information Assigning Authority: FDA
--- OUTSIDE RECORDS SUMMARY | 2022-07-04 14:35 | XMS_ITS | Continuity of Care Document ---
Author Name Unknown Organization [facility] Address [address] [place] [address]- Care Team Providers Care Bar Staff Name Role Phone Charles LANG, Shabana Joe Primary Care Physician [facility]counter [facility] Date(s): 03/30/19 - 04/30/[address] [address]- [facility] Attending Physician: Not on Staff, Attending MD [...] 06/15/1912:44:37 EDT, Aerosol, Route to Pharmacy Electronically, [id number], [facility]/pharmacy #[id number], Compound Start Date: 06/15/18 Status: Ordered Colace sodium 100 mg oral capsule 100 mg, 1, capsule, By Mouth, 2 times a day, # 60 capsule, Refills 0, Tot. Refills 0, Maintenance, 02/25/18 13:34:26 EST, Print Requisition Start Date: 02/25/18 Stop Date: 03/27/18 Status: Ordered ibuprofen 600 mg oral tablet 600 mg, 1, tablet, By Mouth, Every 8 hours, # 90 tablet, Refills 2, Tot. Refills 2, Maintenance, 03/05/19 3:09:00 EST, Route to Pharmacy Electronically, [facility]/pharmacy #[id number], 174, cm, 12/09/18 8:31:00 EDT, Height, 52.7, kg, 10/26/18 15:15:00 EDT, Dry We... Start Date: 03/05/19 Status: Ordered Problem List Condition Effective Dates [...] MESH BARD 3X6IN 7.5X15CM - B SUSANNA ([id number]) 1 Bard Davol 29 Unknown ANJELICA:No Information Assigning Authority: FDA
--- OUTSIDE RECORDS SUMMARY | 2022-07-04 14:35 | XMS_ITS | Continuity of Care Document ---
Author Name Unknown Organization [facility] Address [address] [place] [address]- Care Team Providers Care Graduate Student Instructor Name Role Phone Shabana Soto MD, I Primary Care Physician [phone] Encounter [facility] Date(s): 10/14/19 - 10/15/[address] [address]- [facility] Discharge Disposition: A-D/C Walkout Attending Physician: Not [...] 06/15/1912:44:37 EDT, Aerosol, Route to Pharmacy Electronically, [id number], [facility]/pharmacy #[id number], Compound Start Date: [...] Gm, 0 Refills, Maintenance, 07/27/19 19:54:00 EDT, [place], [facility]/pharmacy #[id number], 1 sprays Nares, Both 2 times a day, 174, cm, 12/09/18 8:31:00 EDT, Height, 50,kg, 04/10/19 4:52:00 EST, Dry Weight Start Date: 07/27/19 Status: Ordered ibuprofen 600 mg oral tablet 600 mg, 1, tablet, By Mouth, Every 8 hours, # 90 tablet, Refills 2, Tot. Refills 2, Maintenance, 03/05/19 3:09:00 EST, Route to Pharmacy Electronically, [facility]/pharmacy #[id number], 174, cm, 12/09/18 8:31:00 EDT, Height, 52.7, kg, 10/26/18 15:15:00 EDT, Dry We... Start Date: 03/05/19 Status: Ordered loratadine 10 mg oral tablet 10 mg, 1, tablet, By Mouth, Daily, # 30 tablet, Refills 0, Tot. Refills 0, Maintenance, 07/27/19 19:56:00 EDT, Route to Pharmacy Electronically, [facility]/pharmacy #[id number], 174, cm, 12/09/18 [...] recent to oldest [Reference Range]: 1 2 Weight 50.1 kg (10/14/19 11:21 PM) 50.1 kg (10/14/19 11:15 PM) Oxygen Saturation [94-100 %] 100 % (10/14/19 11:15 PM) Pulse Rate [55-90 bpm] 83 bpm (10/14/19 11:15 PM) Blood Pressure [90-138/55-84 mm Hg] 125/ 79mm Hg (10/14/19 11:15 PM) Respiratory Rate [16-30 br/min] 18 br/mi n (10/14/19 11:15 PM) Temperature [96.8-100.4 DegF] 98.2 DegF (10/14/19 11:15 PM) Mode of Delivery (Oxygen) Room air (10/14/19 11:15 PM) Blood pressure sites Arm, left (10/14/19 11:15 PM) Temperature Route Oral (10/14/19 11:15 PM) Dry Weight 50.1 kg (10/14/19 11:21 PM) 50.1 kg (10/14/19 11:15 PM) Weight Obtained Via Standing scale (10/14/19 11:15 PM) Dry Weight Obtained Via Standing scale (10/14/19 11:15 PM) Social History Social History Type Response Smoking Status Current every day yolis frazier; Type: Cigarettes; Other: 3 cigarettes a day; entered on: 10/10/17 Sex Medical Equipment Implanted Date:02/25/18Target Site:Groin Right Description Quantity MRI Company Model MESH BARD 3X6IN 7.5X15CM - B SUSANNA ([id number]) 1 Bard Davol 29 Unknown ANJELICA:No Information Assigning Authority: FDA
--- OUTSIDE RECORDS SUMMARY | 2022-07-04 14:35 | XMS_ITS | Continuity of Care Document ---
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 Start Date: 10/30/21 Status: Ordered albuterol CFC free 90 mcg/inh inhalation aerosol 2, puffs, Inhalation, Every 6 hours, PRN, # 1 each, Refills 11, Tot. Refills 11, Maintenance, 10/10/21 9:46:00 EDT, Aerosol, Route to Pharmacy Electronically, [id number], [place], [place] - [phone], 173, c... Start Date: 10/10/21 Stop Date: 10/05/22 Status: Ordered docusate sodium 100 mg oral capsule 1 capsule = 100 mg, By Mouth, 2 times a day, PRN as needed for constipation, # 60 capsule, 0 Refills, Maintenance, 10/30/21 15:12:00 EDT, [place], [facility]/pharmacy #[id number], Partial fill upon patient request if the prescription is for a schedule II opioid dr... Start Date: 10/30/21 Status: Ordered Estrace 2 mg oral tablet 1 tablet = 2 mg, By Mouth, Daily, # 30 tablet, 0 Refills, Maintenance, 10/30/21 15:28:00 EDT, Tablet, [facility]/pharmacy #[id number], Partial fill upon [...] 10/30/21 15:12:00 EDT, Route to Pharmacy Electronically, [facility]/pharmacy #[id number], Partial fill upon patient request [...] the prescription... Start Date: 10/30/21 Status: Ordered oxyCODONE 5 mg oral tablet 5 mg, Tablet, By Mouth, Once, PRN for Pain , Moderate, Routine, 11/07/21 7:40:00 EDT Start Date: 11/07/21 Stop Date: 11/07/21 Status: Completed Senna 8.6 mg oral tablet 17.2 mg, 2, tablet, By Mouth, Daily at bedtime, # 50 tablet, Refills 0, Tot. Refills 0, Maintenance, 10/30/21 15:13:00 EDT, Route to Pharmacy Electronically, [facility]/pharmacy #[id number], Partial fill upon patient request [...] inguinal hernia(Confirmed) Active Seizures(Confirmed) Active Underweight(Confirmed) Active 112/2014 Results Orders for Microbiology Reports Name Date Wound Superficial Culture W/ Gram Smear (Culture Wound Superficial w/ Gram Smear) 11/07/21 Microbiology Reports TEST:Superficial Wound Culture STATUS:Unauthenticated BODY SITE: SOURCE:SWAB1 COLLECTED DATE/TIME:11/07/21 8:41 AM Superficial Wound Culture SPECIMEN DESCRIPTION : SWAB VAGINA SPECIAL REQUESTS : NONE GRAM STAIN : 3+ WHITE BLOOD CELLS 4+ GRAM POSITIVE COCCI 2+ GRAM POSITIVE RODS 1+ GRAM NEGATIVE RODS REPORT STATUS : PRELIMINARY REPORT Vital Signs Most recent to oldest [Reference Range]: 1 2 3 Height 173 cm (11/07/21 8:27 AM) 173 cm (11/07/21 4:00 AM) 173 cm (11/07/21 1:30 AM) Weight 51.5 kg (11/07/21 8:27 AM) 51.5 kg (11/07/21 4:00 AM) 51.5 kg (11/07/21 1:30 AM) Oxygen Saturation [94-100 %] 100 % (11/07/21 10:07 AM) 100 % (11/07/21 8: AM) 97 % (11/07/21 7:03 AM) Pulse Rate [55-90 bpm] 70 bpm (11/07/21 10:07 AM) 59 bpm (11/07/21 8: AM) 65 bpm (11/07/21 7:03 AM) Body Mass Index [18.5-24.99] 17.21 *L* (11/07/21 8:27 AM) 17.21 *L* (11/06/21 7:42 PM) Blood Pressure [90-138/55-84 mm Hg] 101/73mm Hg (11/07/21 10:07 AM) 116/80mm Hg (11/07/21 8:27 AM) 111/63mm Hg (11/07/21 7:03 AM) Respiratory Rate [16-30 br/min] 16 br/min (11/07/21 10:07 AM) 18 br/min (11/07/21 8:31 AM) 17 br/min (11/07/21 8:27 AM) Temperature [96.8-100.4 DegF] 97.6 DegF (11/07/21 4:13 AM) 98.4 DegF (11/06/21 11:53 PM) 98 DegF (11/06/21 9:47 PM) Mode of Delivery (Oxygen) Room air (11/07/21 8:27 AM) Room air (11/07/21 7:03 AM) Room air (11/07/21 4:59 AM) Blood pressure sites Arm, left (11/07/21 10:07 AM) Arm, left (11/07/21 8:27 AM) Arm, left (11/07/21 7:03 AM) Temperature Route Oral (11/07/21 4:13 AM) Oral (11/06/21 11:53 PM) Oral (11/06/21 9:47 PM) Dry Weight 51.5 kg (11/07/21 8:27 AM) 51.5 kg (11/07/21 4:00 AM) 51.5 kg (11/07/21 1:30 AM) Weight Obtained Via Patient/family state d (11/06/21 7:42 PM) Dry Weight Obtained Via Patient/family s tated (11/06/21 7:42 PM) Social History Social History Type Response [...] MRI Safety Implantable Status Assigning Authority Unknown [id number] Unknown 10/04/21 Unknown Unknown Active Unknown Care Team Personnel Name: Shabana Soto MD, I Address: [address] [place] [address]
--- OUTSIDE RECORDS SUMMARY | 2022-07-04 14:35 | XMS_ITS | Continuity of Care Document ---
Author Name Unknown Organization [facility] ter Address [address] [place] [address]- Care Team Providers Care Internal Communications Specialist Name Role Phone Charles LANG, Shabana Joe Primary Care Physician [phone] Encounter [facility] Date(s): 04/09/19 - 04/10/[address] [address]- [facility] Encounter Diagnosis Abdominal pain(Final) - 04/10/19 Discharge Disposition: A-D/C Home Attending Physician: Hunter Orellana MD Admitting Physician: Hunter Orellana MD Referring Physician: Not on Staff, Referring [...] 06/15/1912:44:37 EDT, Aerosol, Route to Pharmacy Electronically, [id number], [facility]/pharmacy #[id number], Compound Start Date: 06/15/18 Status: [...] 03/05/19 3:09:00 EST, Route to Pharmacy Electronically, [facility]/pharmacy #[id number], 174, cm, 12/09/18 8:31:00 EDT, [...] for Microbiology Reports Name Date Wet Prep 04/10/19 Microbiology Reports TEST:Wet Prep STATUS:Auth (Verified) BODY SITE: SOURCE:VAGINA COLLECTED DATE/TIME:04/10/19 1:30 AM Wet Prep SPECIMEN DESCRIPTION : VAGINAL SPECIMEN SPECIAL REQUESTS : NONE DIRECT EXAM : 1+ WHITE BLOOD CELLS 1+ CLUE CELLS NO YEAST OBSERVED NO TRICHOMONAS OBSERVED TRANSPORT TIME GREATER THAN ONE HOUR MAY CAUSE FALSE NEGATIVE RESULTS FOR DETECTION OF MOTILE TRICHOMONADS REPORT STATUS : FINAL 04/10/2019 Vital Signs Most recent to oldest [Reference Range]: 1 2 3 Oxygen Saturation [94-100 %] 100 % (04/10/19 4:52 AM) 100 % (04/10/19 1:57 AM) 99 % (04/09/19 10:52 PM) Pulse Rate [55-90 bpm] 60 bpm (04/10/19 4:52 AM) 62 bpm (04/10/19 1:57 AM) 76 bpm (04/09/19 10:52 PM) Blood Pressure [90-138/55-84 mm Hg] 126/70mm Hg (04/10/19 4:52 AM) 109/62mm Hg (04/10/19 1:57 AM) 103/63mm Hg (04/09/19 10:52 PM) Respiratory Rate [16-30 br/min] 17 br/min (04/10/19 4:55 AM) 16 br/min (04/10/19 4:52 AM) 16 br/min (04/10/19 1:57 AM) Temperature [96.8-100.4 DegF] 98.1 DegF (04/10/19 4:52 AM) 97.6 DegF (04/10/19 1:57 AM) 97.8 DegF (04/09/19 8:52 PM) Mode of Delivery (Oxygen) Room air (04/10/19 4:52 AM) Room air (04/10/19 1:57 AM) Room air (04/09/19 10:52 PM) Blood pressure sites Arm, left (04/10/19 4:52 AM) Arm, left (04/10/19 1:57 AM) Arm, left (04/09/19 10:52 PM) Temperature Route Oral (04/10/19 4:52 AM) Oral (04/10/19 1:57 AM) Oral (04/09/19 8:52 PM) Dry Weight 50 kg (04/10/19 4:52 AM) 50 kg (04/10/19 1:57 AM) 50 kg (04/09/19 8:52 PM) Dry Weight Obtained Via Patient/family s tated (04/09/19 8:52 PM) Social History Social History Type Response Smoking Status Current every day yolis frazier; Type: Cigarettes; Other: 3 cigarettes a day; entered on: 10/10/17 Sex Medical Equipment Implanted Date:02/25/18Target Site:Groin Right Description Quantity MRI Company Model MESH BARD 3X6IN 7.5X15CM - B SUSANNA ([id number]) 1 Bard Davol 29 Unknown ANJELICA:No Information Assigning Authority: FDA
--- OUTSIDE RECORDS SUMMARY | 2022-07-04 14:36 | XMS_ITS | Continuity of Care Document ---
Author Name Unknown Organization [facility] Address [address] [place] [address]- Care Team Providers Care Retort Pre Cooker Name Role Phone Charles LANG, Shabana Joe Primary Care Physician Encounter [facility] [place] ACCT R [id number] Date(s): 05/03/20 - 06/02/[address] [address]- Attending Physician: Srinivasa Mendieta Admitting Physician: Srinivasa [...] 06/15/1912:44:37 EDT, Aerosol, Route to Pharmacy Electronically, [id number], [facility]/pharmacy #[id number], Compound Start Date: 06/15/18 Status: Ordered [...] 03/20/20 9:28:00 EST, Route to Pharmacy Electronically, [facility]/pharmacy #4471, Partial fill upon patient request if the prescription is for a schedule II opioid drug... Start Date: 03/20/20 Status: Ordered fluticasone 50 mcg/inh nasal spray 1 sprays, Nares, Both, 2 times a day, # 16 Gm, 0 Refills, Maintenance, 07/27/19 19:54:00 EDT, [place], [facility]/pharmacy #[id number], 1 sprays Nares, Both 2 times a day, 174, cm, 12/09/18 8:31:00 EDT, Height, 50,kg, 04/10/19 4:52:00 EST, Dry Weight Start Date: 07/27/19 Status: Ordered ibuprofen 600 mg oral tablet 600 mg, 1, tablet, By Mouth, Every 8 hours, # 90 tablet, Refills 2, Tot. Refills 2, Maintenance, 03/05/19 3:09:00 EST, Route to Pharmacy Electronically, [facility]/pharmacy #[id number], 174, cm, 12/09/18 8:31:00 EDT, Height, 52.7, kg, 10/26/18 15:15:00 EDT, Dry We... Start Date: 03/05/19 Status: Ordered loratadine 10 mg oral tablet 10 mg, 1, tablet, By Mouth, Daily, # 30 tablet, Refills 0, Tot. Refills 0, Maintenance, 07/27/19 19:56:00 EDT, Route to Pharmacy Electronically, [facility]/pharmacy #[id number], 174, cm, 12/09/18 8:31:00 EDT, Height, 50, kg, 04/10/19 4:52:00 EST, Dry Weight Start Date: 07/27/19 Status: Ordered oxyCODONE 5 mg oral tablet See Instructions, take 0.5 tablet at onset of severe pain. if not better in 1 hr, take the remainder of the tablet. maximum use: 1 tablet/day masspat checked. partial fill permitted, # 5 tablet, Refills 0, Tot. Refills 0, Maintenance, 05/03/20 9:51... Start Date: 05/03/20 Status: Ordered Problem List Condition Effective Dates [...] MESH BARD 3X6IN 7.5X15CM - B SUSANNA ([id number]) 1 Bard Davol 29 Unknown ANJELICA:No Information Assigning Authority: FDA
--- OUTSIDE RECORDS SUMMARY | 2022-07-04 14:36 | XMS_ITS | Continuity of Care Document ---
Author Name Unknown Organization [facility] Address [address] [place] [address]- Care Team Providers Care Fire Range Technician Name Role Phone Cherri DELAROSA, Oswald Brandon Primary Care Physicia n Encounter [facility] Date(s): 05/14/22 - 07/03/[address] [address]- Attending Physician: Shabana Soto MD, I Admitting Physician: Shabana Soto MD, I Referring Physician: Shabana Soto MD, I Allergies, Adverse Reactions, Alerts Substance Reaction Severity [...] 10/30/21 15:13:00 EDT, Route to Pharmacy Electronically, [facility]/pharmacy #[id number],Partial fill upon patient request if the prescripti... Start Date: 10/30/21 Status: Ordered albuterol CFC free 90 mcg/inh inhalation aerosol 2, puffs, Inhalation, Every 6 hours, PRN, # 1 each, Refills 11, Tot. Refills 11, Maintenance, 10/10/21 9:46:00 EDT, Aerosol, Route to Pharmacy Electronically, [id number], [place], [place] - [id number], 173, c... Start Date: 10/10/21 Stop Date: 10/05/22 Status: Ordered dicyclomine 20 mg oral tablet 1 tablet = 20 mg, By Mouth, 3 times a day, For stomach cramping., # 21 tablet, 0 Refills, Maintenance, 05/24/22 11:58:00 EDT, Tablet, [facility]/pharmacy #1130, Partial fill upon patient request if [...] 05/26/22 8:45:00 EDT, Route to Pharmacy Electronically, [facility]/pharmacy #5415, Partial fill upon patient request if the prescription is for a schedule II opio... Start Date: 05/26/22 Status: Ordered famotidine 20 mg oral tablet 20 mg, 1, tablet, By Mouth, 2 times a day, # 180 tablet, Refills 0, Tot. Refills 0, Maintenance, 05/26/22 9:05:00 EDT, [facility] Partial fill upon patient request if the prescription is for a schedule II opi... Start Date: 05/26/22 Status: Ordered omeprazole 40 mg oral enteric coated capsule 1 capsule = 40 mg, By Mouth, Daily, For abdominal pain/ stomach acid/ reflux, # 14 capsule, 0 Refills, Maintenance, 05/24/22 11:59:00 EDT, EC Capsule, [facility]/pharmacy #1130, Partial fill upon patient request if the prescription is for a schedule II opioi... Start Date: 05/24/22 Stop Date: 06/07/22 Status: Ordered ondansetron 4 mg oral tablet, disintegrating 1 tablet = 4 mg, By Mouth, Every 8 hours, PRN as needed for nausea/vomiting, # 12 tablet, 0 Refills, Maintenance, 05/26/22 8:45:00 EDT, DIS Tablet, [facility]/pharmacy #0488, Partial fill upon patient request if the prescription is for a schedule II opioid d... Start Date: 05/26/22 Status: Ordered ondansetron 4 mg oral tablet, disintegrating 1 tablet = 4 mg, By Mouth, Every 8 hours, PRN as needed for nausea/vomiting, # 14 tablet, 0 Refills, Maintenance, 05/26/22 9:05:00 EDT, DIS Tablet, [facility]/pharmacy #1130, Partial fill upon patient request if the prescription is for a schedule II opioid d... Start Date: 05/26/22 Status: Ordered predniSONE 5 mg oral tablet 1 tablet = 5 mg, By Mouth, Daily, # 5 tablet, 0 Refills, Maintenance, 04/29/22 13:40:00 EST, Tablet, [facility]/pharmacy #1130, Partial fill upon patient request if [...] MRI Safety Implantable Status Assigning Authority Unknown [id number] Unknown 10/04/21 Unknown Unknown Active Unknown [...] Keith Stacy MD Position: [facility] TRAUMA DOCTOR MD Member Role: Lifetime TRAUMA DOCTOR Physician Address: Address: [address] [place] [address] Name: Robin Wagner Position: [facility] [...] Care Nurse Name: Anay Rouse RN Position: [facility] RN Member Role: Primary Care Nurse Name: Jennifer Weaver RN Position: S RN Member Role: Primary Care Nurse Name: Roxana Young RN Position: [facility] RN Member Role: Primary Care Nurse Name: Oswald Harley NP Position: [facility] PCO Associate Professional Member Role: PCP Address: Address: [address] [place] [address]- Name: Megan Grant RN Position: [facility] ED RN W/OE and Tasks Member Role: Primary Care Nurse Name: Eliane Vo RN Position: [facility] RN Member Role: Primary Care Nurse Name: Neda Hernandez RN Position: [facility] PCO RN Member Role: Primary Care Nurse Care Team Related Persons Name: MCKEON MENDEL Address: home [address] [address] Name: GIANA LAMAS Address: home [address] [place] [address] Name: ROSHNI JUÁREZ Address: [place] [address] Name: SINDHU SCHRADER Address: home [address] [place] [address] Name: CRAIG VACA Address: home [address] [place] [address]
--- OUTSIDE RECORDS SUMMARY | 2022-07-04 14:36 | XMS_ITS | Continuity of Care Document ---
Author Name Unknown Organization [facility] Address [address] [place] [address]- Care Team Providers Care Clinical Informatics Spec Name Role Phone Charles LANG, Shabana Joe Primary Care Physician Encounter [facility] Date(s): 09/12/20 - 10/12/[address] [address]- Allergies, Adverse Reactions, Alerts Substance Reaction Severity [...] 06/15/1912:44:37 EDT, Aerosol, Route to Pharmacy Electronically, [id number], [facility]/pharmacy #4471, Compound Start Date: 06/15/18 [...] Gm, 0 Refills, Maintenance, 07/27/19 19:54:00 EDT, [place], [facility]/pharmacy #4471, 1 sprays Nares, Both [...] 07/20/20 10:21:00 EDT, Route to Pharmacy Electronically, [facility]/pharmacy #4471, 174, cm, 07/20/20 9:36:00 EDT, Height, [...] 0 Refills, Maintenance, 08/19/20 21:01:00 EDT, Tablet, [facility]/pharmacy #4471, Partial fill upon patient [...] Response Smoking Status Current every day sm freddie; Type: Cigarettes; Other: 3 cigarettes a day; entered on: 10/10/17 Sex Medical Equipment Implanted Date:02/25/18Target Site:Groin Right Description Quantity MRI Company Model MESH BARD 3X6IN 7.5X15CM - B SUSANNA ([id number]) 1 [employer] Davol 29 Unknown ANJELICA:No Information Assigning Authority: FDA
--- OUTSIDE RECORDS SUMMARY | 2022-07-04 14:36 | XMS_ITS | Continuity of Care Document ---
Author Name Unknown Organization [facility] Address [address] [place] [address]- Care Team Providers Care Fitness Club Manager Name Role Phone Charles LANG, Shabana Joe Primary Care Physician Encounter [facility] [place] Date(s): 05/15/22 - 06/14/[address] [address]- Allergies, Adverse Reactions, Alerts Substance Reaction Severity [...] 10/30/21 15:13:00 EDT, Route to Pharmacy Electronically, [facility]/pharmacy #4731,Partial fill upon patient request if the prescripti... Start Date: 10/30/21 Status: Ordered albuterol CFC free 90 mcg/inh inhalation aerosol 2, puffs, Inhalation, Every 6 hours, PRN, # 1 each, Refills 11, Tot. Refills 11, Maintenance, 10/10/21 9:46:00 EDT, Aerosol, Route to Pharmacy Electronically, [id number], [place], [place] - [id number], 173, c... Start Date: 10/10/21 Stop Date: 10/05/22 Status: Ordered dicyclomine 20 mg oral tablet 1 tablet = 20 mg, By Mouth, 3 times a day, For stomach cramping., # 21 tablet, 0 Refills, Maintenance, 05/24/22 11:58:00 EDT, Tablet, [facility]/pharmacy #1130, Partial fill upon patient request if [...] 05/26/22 8:45:00 EDT, Route to Pharmacy Electronically, [facility]/pharmacy #1755, Partial fill upon patient request if the prescription is for a schedule II opio... Start Date: 05/26/22 Status: Ordered famotidine 20 mg oral tablet 20 mg, 1, tablet, By Mouth, 2 times a day, # 180 tablet, Refills 0, Tot. Refills 0, Maintenance, 05/26/22 9:05:00 EDT, Route to Pharmacy Electronically, [facility]/pharmacy #1130, Partial fill upon patient request if the prescription is for a schedule II opi... Start Date: 05/26/22 Status: Ordered omeprazole 40 mg oral enteric coated capsule 1 capsule = 40 mg, By Mouth, Daily, For abdominal pain/ stomach acid/ reflux, # 14 capsule, 0 Refills, Maintenance, 05/24/22 11:59:00 EDT, EC Capsule, [facility]/pharmacy #1130, Partial fill upon patient request if the prescription is for a schedule II opioi... Start Date: 05/24/22 Stop Date: 06/07/22 Status: Ordered ondansetron 4 mg oral tablet, disintegrating 1 tablet = 4 mg, By Mouth, Every 8 hours, PRN as needed for nausea/vomiting, # 12 tablet, 0 Refills, Maintenance, 05/26/22 8:45:00 EDT, DIS Tablet, [facility]/pharmacy #0488, Partial fill upon patient request if the prescription is for a schedule II opioid d... Start Date: 05/26/22 Status: Ordered ondansetron 4 mg oral tablet, disintegrating 1 tablet = 4 mg, By Mouth, Every 8 hours, PRN as needed for nausea/vomiting, # 14 tablet, 0 Refills, Maintenance, 05/26/22 9:05:00 EDT, DIS Tablet, [facility]/pharmacy #1130, Partial fill upon patient request if the prescription is for a schedule II opioid d... Start Date: 05/26/22 Status: Ordered predniSONE 5 mg oral tablet 1 tablet = 5 mg, By Mouth, Daily, # 5 tablet, 0 Refills, Maintenance, 04/29/22 13:40:00 EST, Tablet, [facility]/pharmacy #1130, Partial fill upon patient request if [...] MRI Safety Implantable Status Assigning Authority Unknown [id number] Unknown 10/04/21 Unknown Unknown Active Unknown Patient Care team information Care Team Personnel Name: Mendy Spicer RN Position: [facility] RN Member Role: Primary Care Nurse Name: Shiela Mays RN Position: [facility] RN Member Role: Primary Care Nurse Name: Ashley Fields RN Position: [facility] MR W/ Merge Member Role: Primary Care Nurse Name: Keith Stacy MD Position: [facility] SUPERINTENDENT OVERHEAD DISTRIBUTION MD Member Role: Lifetime SUPERINTENDENT OVERHEAD DISTRIBUTION Physician Address: Address: [address] [place] [address] Name: Shabana Soto MD, I Position: [facility] Primary Care Physician Member Role: PCP Address: Address: [address] [place] [address] Name: Robin Wagner Position: [facility] RN Member Role: Primary Care Nurse Name: Justin Francis RN Position: [facility] RN Member Role: Primary Care Nurse Name: Laya Montes RN Position: [facility] RN Member Role: Primary Care Nurse Name: Alice Juarez RN Position: [facility] RN Member Role: Primary Care Nurse Name: Fela Garcia RN Position: [facility] ED RN W/OE and Tasks Member Role: Primary Care Nurse Name: Anay Rouse RN Position: [facility] RN Member Role: Primary Care Nurse Name: Jennifer Weaver RN Position: [facility] RN Member Role: Primary Care Nurse Name: Roxana Young RN Position: [facility] RN Member Role: Primary Care Nurse Name: Megan Grant RN Position: [facility] ED RN W/OE and Tasks Member Role: Primary Care Nurse Name: Eliane Vo RN Position: [facility] RN Member Role: Primary Care Nurse Name: Neda Hernandez RN Position: [facility] PCO RN Member Role: Primary Care Nurse Care Team Related Persons Name: MCKEON MENDEL Address: home [address] [address] Name: GIANA LAMAS Address: home [address] [place] [address] Name: ROSHNI JUÁREZ Address: [place] [address] Name: SINDHU SCHRADER Address: home [address] [place] [address] Name: CRAIG VACA Address: home [address] [place] [address]
--- OUTSIDE RECORDS SUMMARY | 2022-07-04 14:36 | XMS_ITS | Continuity of Care Document ---
Author Name Unknown Organization [facility] Address [address] [place] [address]- Care Team Providers Care Oil Prospecting Observer Name Role Phone Charles LANG, Shabana Joe Primary Care Physician [facility]counter [facility] Date(s): 04/06/21 - 05/06/[address] [address]- Allergies, Adverse Reactions, Alerts Substance Reaction Severity [...] 06/15/1912:44:37 EDT, Aerosol, Route to Pharmacy Electronically, [id number], [facility]/pharmacy #4471, Compound Start Date: 06/15/18 Status: [...] 03/20/20 9:28:00 EST, Route to Pharmacy Electronically, [facility]/pharmacy #4471, Partial fill upon patient request if the prescription is for a schedule II opioid drug... Start Date: 03/20/20 Status: Ordered fluticasone 50 mcg/inh nasal spray 1 sprays, Nares, Both, 2 times a day, # 16 Gm, 0 Refills, Maintenance, 07/27/19 19:54:00 EDT, [place], [facility]/pharmacy #4471, 1 sprays Nares, Both 2 times a day, 174, cm, 12/09/18 8:31:00 EDT, Height, 50,kg, 04/10/19 4:52:00 EST, Dry Weight Start Date: 07/27/19 Status: Ordered ibuprofen 600 mg oral tablet 600 mg, 1, tablet, By Mouth, Every 8 hours, # 90 tablet, Refills 2, Tot. Refills 2, Maintenance, 03/05/19 3:09:00 EST, Route to Pharmacy Electronically, [facility]/pharmacy #4471, 174, cm, 12/09/18 8:31:00 EDT, Height, 52.7, kg, 10/26/18 15:15:00 EDT, Dry We... Start Date: 03/05/19 Status: Ordered loratadine 10 mg oral tablet 10 mg, 1, tablet, By Mouth, Daily, # 30 tablet, Refills 4, Tot. Refills 4, Maintenance, 07/20/20 10:21:00 EDT, Route to Pharmacy Electronically, [facility]/pharmacy #4471, 174, cm, 07/20/20 9:36:00 EDT, [...] 0 Refills, Maintenance, 08/19/20 21:01:00 EDT, Tablet, [facility]/pharmacy #4921, Partial fill upon patient request if the [...] MESH BARD 3X6IN 7.5X15CM - B SUSANNA ([id number]) 1 [address] Davol 29 Unknown ANJELICA:No Information Assigning Authority: FDA
--- OUTSIDE RECORDS SUMMARY | 2022-07-04 14:36 | XMS_ITS | Continuity of Care Document ---
Author Name Unknown Organization [facility] ter Address [address] [place] [address]- Care Team Providers Care Dish Cloth Inspector Name Role Phone Charles LANG, Shabana Joe Primary Care Physician Encounter [facility] Date(s): 03/27/19 - 03/27/[address] [address]- [facility] Encounter Diagnosis Concussion(Final) - 03/27/19 Discharge Disposition: A-D/C Home Attending Physician: Eileen Whitlock MD Admitting Physician: Eileen Whitlock MD Referring Physician: Not on Staff, Referring [...] 06/15/1912:44:37 EDT, Aerosol, Route to Pharmacy Electronically, [id number], [facility]/pharmacy #4471, Compound [...] 03/05/19 3:09:00 EST, Route to Pharmacy Electronically, [facility]/pharmacy #[id number], 174, cm, 12/09/18 8:31:00 [...] to oldest [Reference Range]: 1 2 3 Weight 50.1 kg (03/27/19 5:20 PM) 50.1 kg (03/27/19 4:17 PM) 50.1 kg (03/27/19 4:10 PM) Oxygen Saturation [94-100 %] 100 % (03/27/19 5:20 PM) 100 % (03/27/19 4:10 PM) 100 % (03/27/19 2:02 PM) Pulse Rate [55-90 bpm] 61 bpm (03/27/19 5:20 PM) 50 bpm *L* (03/27/19 4:10 PM) 61 bpm (03/27/19 2:02 PM) Blood Pressure [90-138/55-84 mm Hg] 97/49mm Hg (03/27/19 5:20 PM) 109/53mm Hg (03/27/19 4:10 PM) 115/62mm Hg (03/27/19 2:02 PM) Respiratory Rate [16-30 br/min] 12 br/min *L* (03/27/19 5:20 PM) 16 br/min (03/27/19 4:17 PM) 16 br/min (03/27/19 4:10 PM) Temperature [96.8-100.4 DegF] 98.2 DegF (03/27/19 4:10 PM) 98.1 DegF (03/27/19 2:02 PM) Mode of Delivery (Oxygen) Room air (03/27/19 5:20 PM) Nasal cannula (03/27/19 4:10 PM) Room air (03/27/19 2:02 PM) Blood pressure sites Arm, left (03/27/19 5:20 PM) Arm, right (03/27/19 4:10 PM) Arm, right (03/27/19 2:02 PM) Temperature Route Oral (03/27/19 4:10 PM) Oral (03/27/19 2:02 PM) Dry Weight 50.1 kg (03/27/19 5:20 PM) 50.1 kg (03/27/19 4:17 PM) 50.1 kg (03/27/19 4:10 PM) Weight Obtained Via Standing scale (03/27/19 2:02 PM) Dry Weight Obtained Via Standing scale (03/27/19 2:02 PM) Social History Social History Type Response Smoking Status Current every day yolis frazier; Type: Cigarettes; Other: 3 cigarettes a day; entered on: 8/3/18 Sex Medical Equipment Implanted Date:02/25/18Target Site:Groin Right Description Quantity MRI Company Model MESH BARD 3X6IN 7.5X15CM - B SUSANNA ([id number]) 1 [employer] Davol 29 Unknown ANJELICA:No Information Assigning Authority: FDA
--- OUTSIDE RECORDS SUMMARY | 2022-07-04 14:36 | XMS_ITS | Continuity of Care Document ---
Author Name Unknown Organization [facility] Address [address] [place] [address]- Care Team Providers Care Paperhanger Contractor Name Role Phone Charles LANG, Shabana Joe Primary Care Physician [phone] Encounter [facility] Date(s): 08/03/21 - 09/02/[address] [address]- Allergies, Adverse Reactions, Alerts Substance Reaction Severity [...] 06/15/1912:44:37 EDT, Aerosol, Route to Pharmacy Electronically, [id number], [facility]/pharmacy #4471, Compound Start Date: 06/15/18 Status: [...] 03/20/20 9:28:00 EST, [facility] Partial fill upon patient request if the prescription is for a schedule II opioid drug... Start Date: 03/20/20 Status: Ordered fluticasone 50 mcg/inh nasal spray 1 sprays, Nares, Both, 2 times a day, # 16 Gm, 0 Refills, Maintenance, 07/27/19 19:54:00 EDT, [place], [facility]/pharmacy #4471, 1 sprays Nares, Both 2 times a day, 174, cm, 12/09/18 8:31:00 EDT, Height, 50,kg, 04/10/19 4:52:00 EST, Dry Weight Start Date: 07/27/19 Status: Ordered ibuprofen 600 mg oral tablet 600 mg, 1, tablet, By Mouth, Every 8 hours, # 90 tablet, Refills 2, Tot. Refills 2, Maintenance, 03/05/19 3:09:00 EST, Route to Pharmacy Electronically, [facility]/pharmacy #[id number], 174, cm, 12/09/18 8:31:00 EDT, Height, 52.7, kg, 10/26/18 15:15:00 EDT, Dry We... Start Date: 03/05/19 Status: Ordered loratadine 10 mg oral tablet 10 mg, 1, tablet, By Mouth, Daily, # 30 tablet, Refills 4, Tot. Refills 4, Maintenance, 07/20/20 10:21:00 EDT, Route to Pharmacy Electronically, [facility]/pharmacy #[id number], 174, cm, 07/20/20 9:36:00 EDT, Height, 50.1, kg, 10/14/19 23:21:00 EDT, Dry Weight Start Date: 07/20/20 Stop Date: 12/17/20 Status: Ordered meclizine 25 mg oral tablet 1 tablet = 25 mg, By Mouth, 2 times a day, # 10 tablet, 0 Refills, Acute 07/30/22 15:45:00 EDT, 07/29/21 15:45:00 EDT, Tablet, [facility]/pharmacy #0851, Partial fill upon patient request if the [...] MESH BARD 3X6IN 7.5X15CM - B SUSANNA ([id number]) 1 [address] Davol 29 Unknown ANJELICA:No Information Assigning Authority: FDA
--- OUTSIDE RECORDS SUMMARY | 2022-07-04 14:36 | XMS_ITS | Continuity of Care Document ---
Author Name Unknown Organization [facility] Address [address] [place] [address]- Care Team Providers Care Grinder Chipper Name Role Phone Charles LANG, Shabana Joe Primary Care Physician [facility]): 11/08/19 - 12/08/[address] [address]- [facility] Allergies, Adverse Reactions, Alerts Substance Reaction Severity [...] 06/15/1912:44:37 EDT, Aerosol, Route to Pharmacy Electronically, [id number], [facility]/pharmacy #[id number], Compound Start Date: 06/15/18 Status: Ordered [...] Gm, 0 Refills, Maintenance, 07/27/19 19:54:00 EDT, [place], [facility]/pharmacy #[id number], 1 sprays Nares, Both 2 times a day, 174, cm, 12/09/18 8:31:00 EDT, Height, 50,kg, 04/10/19 4:52:00 EST, Dry Weight Start Date: 07/27/19 Status: Ordered ibuprofen 600 mg oral tablet 600 mg, 1, tablet, By Mouth, Every 8 hours, # 90 tablet, Refills 2, Tot. Refills 2, Maintenance, 03/05/19 3:09:00 EST, Route to Pharmacy Electronically, [facility]/pharmacy #[id number], 174, cm, 12/09/18 8:31:00 EDT, Height, 52.7, kg, 10/26/18 15:15:00 EDT, Dry We... Start Date: 03/05/19 Status: Ordered loratadine 10 mg oral tablet 10 mg, 1, tablet, By Mouth, Daily, # 30 tablet, Refills 0, Tot. Refills 0, Maintenance, 07/27/19 19:56:00 EDT, Route to Pharmacy Electronically, [facility]/pharmacy #[id number], 174, cm, 12/09/18 8:31:00 EDT, Height, [...] MESH BARD 3X6IN 7.5X15CM - B SUSANNA ([id number]) 1 [address] 29 Unknown ANJELICA:No Information Assigning Authority: FDA
--- OUTSIDE RECORDS SUMMARY | 2022-07-04 14:36 | XMS_ITS | Continuity of Care Document ---
Author Name Unknown Organization [facility] Address [address] [place] [address]- Care Team Providers Care Mapping Analyst Name Role Phone Charles LANG, Shabana Joe Primary Care Physician [facility] Date(s): 03/31/19 - 04/10/[address] [address]- [facility] Attending Physician: Srinivasa Mendieta Admitting Physician: Srinivasa Mendieta Referring Physician: Srinivasa Mendieta Allergies, Adverse Reactions, Alerts Substance Reaction Severity [...] 06/15/1912:44:37 EDT, Aerosol, Route to Pharmacy Electronically, [id number], [facility]/pharmacy #[id number], Compound Start Date: 06/15/18 Status: Ordered [...] 03/05/19 3:09:00 EST, Route to Pharmacy Electronically, [facility]/pharmacy #[id number], 174, cm, 12/09/18 8:31:00 EDT, Height, [...] MESH BARD 3X6IN 7.5X15CM - B SUSANNA ([id number]) 1 [address] 29 Unknown ANJELICA:No Information Assigning Authority: FDA
--- OUTSIDE RECORDS SUMMARY | 2022-07-04 14:36 | XMS_ITS | Continuity of Care Document ---
Author Name Unknown Organization [facility] Address [address] [place] [address]- Care Team Providers Care Child Study Team Director Name Role Phone Charles LANG, Shabana Joe Primary Care Physician [facility] Date(s): 07/19/20 - 08/18/[address] [address]- Allergies, Adverse Reactions, Alerts Substance Reaction Severity [...] 06/15/1912:44:37 EDT, Aerosol, Route to Pharmacy Electronically, [id number], [facility]/pharmacy #[id number], Compound Start [...] 03/20/20 9:28:00 EST, [id number] Partial fill upon patient request if the prescription is for a schedule II opioid drug... Start Date: 03/20/20 Status: Ordered fluticasone 50 mcg/inh nasal spray 1 sprays, Nares, Both, 2 times a day, # 16 Gm, 0 Refills, Maintenance, 07/27/19 19:54:00 EDT, [place], [facility]/pharmacy #[id number], 1 sprays [...] 0 Refills, Maintenance, 07/20/20 10:20:00 EDT, Tablet, [facility]/pharmacy #[id number], Partial fill [...] MESH BARD 3X6IN 7.5X15CM - B SUSANNA ([id number]) 1 [address] 29 Unknown ANJELICA:No Information Assigning Authority: FDA
--- OUTSIDE RECORDS SUMMARY | 2022-07-04 14:36 | XMS_ITS | Continuity of Care Document ---
Author Name Unknown Organization [facility] Address [address] [place] [address]- Care Team Providers Care Technology Support Analyst Name Role Phone Shabana Soto MD, I Primary Care Physician [phone] Encounter [facility] Date(s): 01/08/20 - 02/17/[address] [address]- Attending Physician: Shabana Soto MD, I Admitting [...] 06/15/1912:44:37 EDT, Aerosol, Route to Pharmacy Electronically, [id number], [facility]/pharmacy #[id number], Compound Start Date: 06/15/18 Status: [...] Gm, 0 Refills, Maintenance, 07/27/19 19:54:00 EDT, [place], [facility]/pharmacy #[id number], 1 sprays Nares, Both 2 times a day, 174, cm, 12/09/18 8:31:00 EDT, Height, 50,kg, 04/10/19 4:52:00 EST, Dry Weight Start Date: 07/27/19 Status: Ordered ibuprofen 600 mg oral tablet 600 mg, 1, tablet, By Mouth, Every 8 hours, # 90 tablet, Refills 2, Tot. Refills 2, Maintenance, 03/05/19 3:09:00 EST, Route to Pharmacy Electronically, [facility]/pharmacy #[id number], 174, cm, 12/09/18 8:31:00 EDT, Height, 52.7, kg, 10/26/18 15:15:00 EDT, Dry We... Start Date: 03/05/19 Status: Ordered loratadine 10 mg oral tablet 10 mg, 1, tablet, By Mouth, Daily, # 30 tablet, Refills 0, Tot. Refills 0, Maintenance, 07/27/19 19:56:00 EDT, Route to Pharmacy Electronically, [facility]/pharmacy #[id number], 174, cm, 12/09/18 8:31:00 EDT, Height, 50, kg, 04/10/19 4:52:00 EST, Dry Weight Start Date: 07/27/19 Status: Ordered nicotine 21 mg/24 hr transdermal film, extended release 1 patch, Topically, Daily, for 30 days, # 30 patch, 3 Refills, Acute 05/04/20 12:12:00 EST, 01/05/20 12:12:00 EDT, Patch, [facility]acy [id number], 1 patch Topically Daily,x30 days, 174, cm, 12/09/18 8:31:00 EDT, Height, 50.1, kg, 10/14/19 23:21:00 EDT, Dry... Start Date: 01/05/20 Stop Date: 05/04/20 Status: Ordered Problem List Condition Effective Dates [...] MESH BARD 3X6IN 7.5X15CM - B SUSANNA ([id number]) 1 [address] 29 Unknown ANJELICA:No Information Assigning Authority: FDA
--- OUTSIDE RECORDS SUMMARY | 2022-07-04 14:36 | XMS_ITS | Continuity of Care Document ---
Author Name Unknown Organization [facility] Address [address] [place] [address]- Care Team Providers Care Hold Worker Name Role Phone Charles LANG, Shabana Joe Primary Care Physician [facility] Date[facility]s): 06/26/20 - 07/26/[address] [address]- Allergies, Adverse Reactions, Alerts Substance Reaction Severity [...] 06/15/1912:44:37 EDT, Aerosol, Route to Pharmacy Electronically, [id number], [facility]/pharmacy #[id number], Compound Start Date: 06/15/18 Status: [...] 10:20:00 EDT, 07/20/20 10:20:00 EDT, CR Tablet, [facility]/pharmacy #[id number], Partial fill upon patient requestif the prescription is for a schedule II opioid roberto carlos... Start Date: 07/20/20 Stop Date: 07/30/20 Status: Ordered ferrous sulfate 325 mg oral enteric coated tablet 325 mg, 1, tablet, By Mouth, Daily, # 90 tablet, Refills 0, Tot. Refills 0, Maintenance, 03/20/20 9:28:00 EST, Route to Pharmacy Electronically, [facility]/pharmacy #[id number], Partial fill upon patient request if the prescription is for a schedule II opioid drug... Start Date: 03/20/20 Status: Ordered fluticasone 50 mcg/inh nasal spray 1 sprays, Nares, Both, 2 times a day, # 16 Gm, 0 Refills, Maintenance, 07/27/19 19:54:00 EDT, [place], [facility]/pharmacy #[id number], 1 sprays Nares, Both 2 times a day, 174, cm, 12/09/18 8:31:00 EDT, Height, 50,kg, 04/10/19 4:52:00 EST, Dry Weight Start Date: 07/27/19 Status: Ordered ibuprofen 600 mg oral tablet 600 mg, 1, tablet, By Mouth, Every 8 hours, # 90 tablet, Refills 2, Tot. Refills 2, Maintenance, 03/05/19 3:09:00 EST, Route to Pharmacy Electronically, [facility]/pharmacy #[id number], 174, cm, 12/09/18 8:31:00 EDT, Height, 52.7, kg, 10/26/18 15:15:00 EDT, Dry We... Start Date: 03/05/19 Status: Ordered loratadine 10 mg oral tablet 10 mg, 1, tablet, By Mouth, Daily, # 30 tablet, Refills 4, Tot. Refills 4, Maintenance, 07/20/20 10:21:00 EDT, Route to Pharmacy Electronically, [facility]/pharmacy #[id number], 174, cm, 07/20/20 9:36:00 EDT, [...] 0 Refills, Maintenance, 07/20/20 10:20:00 EDT, Tablet, [facility]/pharmacy #[id number], Partial fill upon patient request [...] MESH BARD 3X6IN 7.5X15CM - B SUSANNA ([id number]) 1 [address] 29 Unknown ANJELICA:No Information Assigning Authority: FDA
--- OUTSIDE RECORDS SUMMARY | 2022-07-04 14:36 | XMS_ITS | Continuity of Care Document ---
Author Name Unknown Organization [facility] Address [address] [place] [address]- Care Team Providers Care Spanish Translator Name Role Phone Shabana Soto MD, I Primary Care Physician [facility] Date(s): 08/27/20 - 08/27/[address] [address]- Discharge Disposition: A-D/C Walkout Attending Physician: Not [...] 06/15/1912:44:37 EDT, Aerosol, Route to Pharmacy Electronically, [id number], [facility]/pharmacy #[id number], Compound Start [...] 03/20/20 9:28:00 EST, Route to Pharmacy Electronically, [facility]/pharmacy #[id number], Partial fill upon patient request if the prescription is for a schedule II opioid drug... Start Date: 03/20/20 Status: Ordered fluticasone 50 mcg/inh nasal spray 1 sprays, Nares, Both, 2 times a day, # 16 Gm, 0 Refills, Maintenance, 07/27/19 19:54:00 EDT, [place], [facility]/pharmacy #[id number], 1 sprays Nares, Both 2 times a day, 174, cm, 12/09/18 8:31:00 EDT, Height, 50,kg, 04/10/19 4:52:00 EST, Dry Weight Start Date: 07/27/19 Status: Ordered ibuprofen 600 mg oral tablet 600 mg, 1, tablet, By Mouth, Every 8 hours, # 90 tablet, Refills 2, Tot. Refills 2, Maintenance, 03/05/19 3:09:00 EST, Route to Pharmacy Electronically, [facility]/pharmacy #[id number], 174, cm, 12/09/18 8:31:00 EDT, Height, 52.7, kg, 10/26/18 15:15:00 EDT, Dry We... Start Date: 03/05/19 Status: Ordered loratadine 10 mg oral tablet 10 mg, 1, tablet, By Mouth, Daily, # 30 tablet, Refills 4, Tot. Refills 4, Maintenance, 07/20/20 10:21:00 EDT, Route to Pharmacy Electronically, [facility]/pharmacy #[id number], 174, cm, 07/20/20 9:36:00 [...] tablet, Refills 0, Tot. Refills 0, Maintenance, 08/22/20 17:0... Start Date: 08/22/20 Status: Ordered oxyCODONE 5 mg oral tablet [...] 0 Refills, Maintenance, 08/19/20 21:01:00 EDT, Tablet, [facility]/pharmacy #[id number], Partial fill [...] Most recent to oldest [Reference Range]: 1 Oxygen Saturation [94-100 %] 100 % (08/27/20 1:42 AM) Pulse Rate [55-90 bpm] 64 bpm (08/27/20 1:42 AM) Blood Pressure [90-138/55-84 mm Hg] 163/ 136mm Hg *H* (08/27/20 1:42 AM) Respiratory Rate [16-30 br/min] 18 br/mi n (08/27/20 1:42 AM) Temperature [96.8-100.4 DegF] 97.7 DegF (08/27/20 1:42 AM) Mode of Delivery (Oxygen) Room air (08/27/20 1:42 AM) Blood pressure sites Arm, right (08/27/20 1:42 AM) Temperature Route Oral (08/27/20 1:42 AM) Social History Social History Type Response Smoking Status Current every day yolis frazier; Type: Cigarettes; Other: 3 cigarettes a day; entered on: 10/10/17 Sex Medical Equipment Implanted Date:02/25/18Target Site:Groin Right Description Quantity MRI Company Model MESH BARD 3X6IN 7.5X15CM - B SUSANNA ([id number]) 1 [address] 29 Unknown ANJELICA:No Information Assigning Authority: FDA
--- OUTSIDE RECORDS SUMMARY | 2022-07-04 14:36 | XMS_ITS | Continuity of Care Document ---
Author Name Unknown Organization [facility] Address [address] [place] [address]- Care Team Providers Care Florist Name Role Phone Charles LANG, Shabana Joe Primary Care Physician [facility] Date[facility]s): 07/23/21 - 08/22/[address] [address]- Allergies, Adverse Reactions, Alerts Substance Reaction Severity [...] 06/15/1912:44:37 EDT, Aerosol, Route to Pharmacy Electronically, [id number], [facility]/pharmacy #[id number], Compound Start Date: 06/15/18 [...] 03/20/20 9:28:00 EST, [id number] Partial fill upon patient request if the prescription is for a schedule II opioid drug... Start Date: 03/20/20 Status: Ordered fluticasone 50 mcg/inh nasal spray 1 sprays, Nares, Both, 2 times a day, # 16 Gm, 0 Refills, Maintenance, 07/27/19 19:54:00 EDT, [place], [facility]/pharmacy #[id number], 1 sprays Nares, Both 2 times a day, 174, cm, 12/09/18 8:31:00 EDT, Height, 50,kg, 04/10/19 4:52:00 EST, Dry Weight Start Date: 07/27/19 Status: Ordered ibuprofen 600 mg oral tablet 600 mg, 1, tablet, By Mouth, Every 8 hours, # 90 tablet, Refills 2, Tot. Refills 2, Maintenance, 03/05/19 3:09:00 EST, Route to Pharmacy Electronically, [facility]/pharmacy #[id number], 174, cm, 12/09/18 8:31:00 EDT, Height, 52.7, kg, 10/26/18 15:15:00 EDT, Dry We... Start Date: 03/05/19 Status: Ordered loratadine 10 mg oral tablet 10 mg, 1, tablet, By Mouth, Daily, # 30 tablet, Refills 4, Tot. Refills 4, Maintenance, 07/20/20 10:21:00 EDT, Route to Pharmacy Electronically, [facility]/pharmacy #[id number], 174, cm, 07/20/20 9:36:00 EDT, Height, 50.1, kg, 10/14/19 23:21:00 EDT, Dry Weight Start Date: 07/20/20 Stop Date: 12/17/20 Status: Ordered meclizine 25 mg oral tablet 1 tablet = 25 mg, By Mouth, 2 times a day, # 10 tablet, 0 Refills, Acute 07/30/22 15:45:00 EDT, 07/29/21 15:45:00 EDT, Tablet, [facility]/pharmacy #[id number], Partial fill upon patient request if the [...] Tot. Refills 0, Maintenance, endometr... Start Date: 07/23/21 Status: Ordered oxyCODONE 5 mg oral tablet [...] 0 Refills, Maintenance, 08/19/20 21:01:00 EDT, Tablet, [facility]/pharmacy #[id number], Partial fill upon patient [...] MESH BARD 3X6IN 7.5X15CM - B SUSANNA ([id number]) 1 [address] 29 Unknown ANJELICA:No Information Assigning Authority: FDA
--- OUTSIDE RECORDS SUMMARY | 2022-07-04 14:36 | XMS_ITS | Continuity of Care Document ---
Author Name Unknown Organization [facility] Address [address] [place] [address]- Care Team Providers Care Suit Maker Name Role Phone Charles LANG, Shabana Joe Primary Care Physician [phone] [facility]): 04/09/21 - 05/09/[address] [address]- Allergies, Adverse Reactions, Alerts Substance Reaction Severity [...] 06/15/1912:44:37 EDT, Aerosol, Route to Pharmacy Electronically, [id number], [facility]/pharmacy #[id number], Compound Start Date: 06/15/18 Status: [...] 03/20/20 9:28:00 EST, Route to Pharmacy Electronically, [facility]/pharmacy #[id number], Partial fill upon patient request if the prescription is for a schedule II opioid drug... Start Date: 03/20/20 Status: Ordered fluticasone 50 mcg/inh nasal spray 1 sprays, Nares, Both, 2 times a day, # 16 Gm, 0 Refills, Maintenance, 07/27/19 19:54:00 EDT, [place], [facility]/pharmacy #[id number], 1 sprays Nares, Both 2 times a day, 174, cm, 12/09/18 8:31:00 EDT, Height, 50,kg, 04/10/19 4:52:00 EST, Dry Weight Start Date: 07/27/19 Status: Ordered ibuprofen 600 mg oral tablet 600 mg, 1, tablet, By Mouth, Every 8 hours, # 90 tablet, Refills 2, Tot. Refills 2, Maintenance, 03/05/19 3:09:00 EST, Route to Pharmacy Electronically, [facility]/pharmacy #[id number], 174, cm, 12/09/18 8:31:00 EDT, Height, 52.7, kg, 10/26/18 15:15:00 EDT, Dry We... Start Date: 03/05/19 Status: Ordered loratadine 10 mg oral tablet 10 mg, 1, tablet, By Mouth, Daily, # 30 tablet, Refills 4, Tot. Refills 4, Maintenance, 07/20/20 10:21:00 EDT, Route to Pharmacy Electronically, [facility]/pharmacy #[id number], 174, cm, 07/20/20 9:36:00 EDT, [...] 0 Refills, Maintenance, 08/19/20 21:01:00 EDT, Tablet, [facility]/pharmacy #[id number], Partial fill upon patient request if the [...] MESH BARD 3X6IN 7.5X15CM - B SUSANNA ([id number]) 1 [address] 29 Unknown ANJELICA:No Information Assigning Authority: FDA
--- OUTSIDE RECORDS SUMMARY | 2022-07-04 14:36 | XMS_ITS | Continuity of Care Document ---
Author Name Unknown Organization [facility] Address [address] [place] [address]- Care Team Providers Care Appraiser Oil And Water Name Role Phone Charles LANG, Shabana Joe Primary Care Physician [facility]): 03/30/21 - 06/15/[address] [address]- Attending Physician: Not on Staff, Attending MD [...] 06/15/1912:44:37 EDT, Aerosol, Route to Pharmacy Electronically, [id number], [id number] Compound Start Date: 06/15/18 Status: Ordered [...] 03/20/20 9:28:00 EST, [facility] to Pharm[facility] Electronically, [id number], Partial fill upon patient request if the prescription is for a schedule II opioid drug... Start Date: 03/20/20 Status: Ordered fluticasone 50 mcg/inh nasal spray 1 sprays, Nares, Both, 2 times a day, # 16 Gm, 0 Refills, Maintenance, 07/27/19 19:54:00 EDT, [place], [facility]/pharmacy #[id number], 1 sprays Nares, Both 2 times a day, 174, cm, 12/09/18 8:31:00 EDT, Height, 50,kg, 04/10/19 4:52:00 EST, Dry Weight Start Date: 07/27/19 Status: Ordered ibuprofen 600 mg oral tablet 600 mg, 1, tablet, By Mouth, Every 8 hours, # 90 tablet, Refills 2, Tot. Refills 2, Maintenance, 03/05/19 3:09:00 EST, Route to Pharmacy Electronically, [facility]/pharmacy #[id number], 174, cm, 12/09/18 8:31:00 EDT, Height, 52.7, kg, 10/26/18 15:15:00 EDT, Dry We... Start Date: 03/05/19 Status: Ordered loratadine 10 mg oral tablet 10 mg, 1, tablet, By Mouth, Daily, # 30 tablet, Refills 4, Tot. Refills 4, Maintenance, 07/20/20 10:21:00 EDT, Route to Pharmacy Electronically, [facility]/pharmacy #[id number], 174, cm, 07/20/20 [...] Refills, Maintenance, 08/19/20 21:01:00 EDT, Tablet, [id number], Partial fill upon patient request if the [...] MESH BARD 3X6IN 7.5X15CM - B SUSANNA ([id number]) 1 [address] 29 Unknown ANJELICA:No Information Assigning Authority: FDA
--- OUTSIDE RECORDS SUMMARY | 2022-07-04 14:36 | XMS_ITS | Continuity of Care Document ---
Author Name Unknown Organization [facility] Address [address] [place] [address]- Care Team Providers Care Pattern Ruler Name Role Phone Charles LANG, Shabana Joe Primary Care Physician Encounter [facility] ACCT R [id number] Date(s): 05/24/19 - 06/03/[address] [address]- [facility] Attending Physician: Admtr, Ar8 Admitting Physician: Admtr, Ar8 Referring Physician: Admtr, Ar8 Allergies, Adverse Reactions, Alerts Substance Reaction Severity [...] 06/15/1912:44:37 EDT, Aerosol, Route to Pharmacy Electronically, [id number], [facility]/pharmacy #[id number], Compound Start Date: 06/15/18 [...] 03/05/19 3:09:00 EST, Route to Pharmacy Electronically, [facility]/pharmacy #[id number], 174, cm, 12/09/18 8:31:00 [...] MESH BARD 3X6IN 7.5X15CM - B SUSANNA ([id number]) 1 [address] 29 Unknown ANJELICA:No Information Assigning Authority: FDA
--- OUTSIDE RECORDS SUMMARY | 2022-07-04 14:36 | XMS_ITS | Continuity of Care Document ---
Author Name Unknown Organization [facility] Address [address] [place] [address]- Care Team Providers Care Panel Machine Setter Name Role Phone Charles LANG, Shabana Joe Primary Care Physician [facility]): 03/07/21 - 04/06/[address] [address]- Allergies, Adverse Reactions, Alerts Substance Reaction Severity [...] 06/15/1912:44:37 EDT, Aerosol, Route to Pharmacy Electronically, [id number], [facility]/pharmacy #[id number], Compound Start Date: 06/15/18 Status: [...] 9:28:00 EST, [id number] Partial fill upon patient request if the prescription is for a schedule II opioid drug... Start Date: 03/20/20 Status: Ordered fluticasone 50 mcg/inh nasal spray 1 sprays, Nares, Both, 2 times a day, # 16 Gm, 0 Refills, Maintenance, 07/27/19 19:54:00 EDT, [place], [facility]/pharmacy #[id number], 1 sprays Nares, Both 2 times a day, 174, cm, 12/09/18 8:31:00 EDT, Height, 50,kg, 04/10/19 4:52:00 EST, Dry Weight Start Date: 07/27/19 Status: Ordered ibuprofen 600 mg oral tablet 600 mg, 1, tablet, By Mouth, Every 8 hours, # 90 tablet, Refills 2, Tot. Refills 2, Maintenance, 03/05/19 3:09:00 EST, Route to Pharmacy Electronically, [facility]/pharmacy #[id number], 174, cm, 12/09/18 8:31:00 EDT, Height, 52.7, kg, 10/26/18 15:15:00 EDT, Dry We... Start Date: 03/05/19 Status: Ordered loratadine 10 mg oral tablet 10 mg, 1, tablet, By Mouth, Daily, # 30 tablet, Refills 4, Tot. Refills 4, Maintenance, 07/20/20 10:21:00 EDT, Route to Pharmacy Electronically, [facility]/pharmacy #[id number], 174, cm, 07/20/20 9:36:00 EDT, [...] 0 Refills, Maintenance, 08/19/20 21:01:00 EDT, Tablet, [facility]/pharmacy #[id number], Partial fill upon patient request [...] MESH BARD 3X6IN 7.5X15CM - B SUSANNA ([id number]) 1 [address] 29 Unknown ANJELICA:No Information Assigning Authority: FDA
--- OUTSIDE RECORDS SUMMARY | 2022-07-04 14:36 | XMS_ITS | Continuity of Care Document ---
Author Name Unknown Organization [facility] ter Address [address] [place] [id number]- Care Team Providers Care Business Unit Director Name Role Phone Charles LANG, Shabana Joe Primary Care Physician Encounter [facility] Date(s): 04/26/22 - 04/28/[address] [id number] Encounter Diagnosis Asthma exacerbation(Final) - 04/27/22 Discharge Disposition: A-D/C Home Attending Physician: Eliane Alston MD Admitting Physician: Ra Adkins MD Referring Physician: Not on Staff, Referring [...] 10/30/21 15:13:00 EDT, Route to Pharmacy Electronically, [facility]/pharmacy #[id number],Partial fill upon patient request if the prescripti... Start Date: 10/30/21 Status: Ordered albuterol CFC free 90 mcg/inh inhalation aerosol 2, puffs, Inhalation, Every 6 hours, PRN, # 1 each, Refills 11, Tot. Refills 11, Maintenance, 10/10/21 9:46:00 EDT, Aerosol, Route to Pharmacy Electronically, [id number], [place], [place] - [phone], [address], c... Start Date: 10/10/21 Stop Date: 10/05/22 Status: Ordered estradiol 2 mg oral tablet 1 tablet = 2 mg, By Mouth, Daily, # 30 tablet, 0 Refills, Maintenance, 04/27/22 4:22:00 EST, Tablet, Partial fill upon patient request if the prescription is for a schedule II opioid drug. Start Date: 04/27/22 Status: Ordered nicotine 14 mg/24 hr transdermal film, extended release 1 patch, Topically, Daily, # 30 patch, 0 Refills, Acute 05/26/22 15:21:00 EDT, 04/28/22 15:18:00 EST, Patch, [facility], Partial fill upon patient request if the prescription is for a schedule II opioid drug., 1 patch Topically Daily, 17... Start Date: 04/28/22 Stop Date: 05/26/22 Status: Ordered Problem List Condition Confirmation Course [...] Active Seizures Confirmed Active Underweight Confirmed Active Results Radiology Reports * Exam Date Time Procedure Performing Provider Status 04/27/22 1:[address] Head/Brain W/O Contrast Lanny Howard (Verified) Notes: (CT Head/Brain W/O Contrast) Reason For Exam: Seizure Disorder RESULT: CT Head/Brain W/O Contrast Examination: Noncontrast head CT performed on 04/27/2022. History: Seizure disorder. Technique and findings: Contiguous 5 mm axial images were obtained from the skull base to the vertex without intravenous contrast. A dose modulated weight-based protocol was used. Comparison is made to a prior study dated 10/28/2021. Mucosal thickening within the ethmoidal air cells is present.. The ventricular system and subarachnoid spaces are within normal limits. There is no intracranial hemorrhage, mass effect, or midline shift. No intra- or extra-axial fluid collections are identified. The osseous structures are unremarkable. Impression: There is no acute intracranial abnormality. WSN: [id number] Ordering Physician: Rj Mayorga Dictated By: Mitra Costa MD Dictated Date/Time: 04/27/22 2:00 pm Reviewed By: Mitra Costa MD Signed By: Mitra Costa MD Signed Date/Time: 04/27/22 2:00 pm Transcribed By: KARIE Transcribed Date/Time: 04/27/22 1:59 pm * Exam Date Time Procedure Performing Provider Status 04/27/22 12:01 AM Chest Portable Shaylee Cruz; Reji (Verified) Notes: (Chest Portable) Reason For Exam: Shortness of Breath RESULT: Chest Portable Chest Portable INDICATION/CLINICAL QUESTION: Hx of Present Illness: SOB x 2 hrs; Reason: Shortness of Breath; Clinical Question(s): CHF / CHF TECHNIQUE: AP chest at 2325 hours. COMPARISON: 02/07/2022. FINDINGS: LINES AND TUBES: Absent. LUNGS AND PLEURA: RIGHT CHEST: The lung is clear and there is no effusion. LEFT CHEST: The lung is clear and there is no effusion. HEART AND MEDIASTINAL CONTOURS: Normal. BONES AND SOFT TISSUES: No acute abnormality.. IMPRESSION: 1. No active disease in chest. WSN: [id number] Ordering Physician: Priya Mendez Dictated By: Elmer Manuel MD Dictated Date/Time: 04/27/22 0:41 am Reviewed By: Elmer Manuel MD Signed By: Elmer Manuel MD Signed Date/Time: 04/27/22 0:41 am Transcribed By: KARIE Transcribed Date/Time: 04/27/22 0:41 am Vital Signs Most recent to oldest [Reference Range]: 1 2 3 Height 173 cm (04/28/22 11:17 AM) 173 cm (04/28/22 7:45 AM) 173 cm (04/28/22 3:53 AM) Weight 50 kg (04/27/22 4:16 AM) 50 kg (04/27/22 2:59 AM) 50 kg (04/27/22 1:31 AM) Oxygen Saturation [94-100 %] 96 % (04/28/22 11:17 AM) 100 % (04/28/22 7:45 AM) 99 % (04/28/22 3:53 AM) Pulse Rate [55-90 bpm] 76 bpm (04/28/22 11:17 AM) 89 bpm (04/28/22 7:45 AM) 80 bpm (04/28/22 3:53 AM) Body Mass Index [18.5-24.99 kg/m2] 16.71 kg/m2 *L* (04/27/22 4:16 AM) 16.71 kg/m2 *L* (04/27/22 2:59 AM) 16.71 kg/m2 *L* (04/27/22 1:31 AM) Blood Pressure [90-138/55-84 mm Hg] 99/48mm Hg (04/28/22 11:17 AM) 100/54mm Hg (04/28/22 7:45 AM) 105/67mm Hg (04/28/22 3:53 AM) Respiratory Rate [16-30 br/min] 18 br/min (04/28/22 11:17 AM) 18 br/min (04/28/22 7:45 AM) 18 br/min (04/28/22 7:45 AM) Temperature [96.8-100.4 DegF] 97.7 DegF (04/28/22 11:17 AM) 97.8 DegF (04/28/22 7:45 AM) 97.8 DegF (04/28/22 3:53 AM) Mode of Delivery (Oxygen) Room air (04/28/22 11:17 AM) Room air (04/28/22 7:45 AM) Room air (04/28/22 3:53 AM) Blood pressure sites Arm, left (04/28/22 11:17 AM) Arm, right (04/28/22 7:45 AM) Arm, right (04/28/22 3:53 AM) Temperature Route Oral (04/28/22 11:17 AM) Oral (04/28/22 7:45 AM) Oral (04/28/22 3:53 AM) Dry Weight 50 kg (04/27/22 4:16 AM) 50 kg (04/27/22 2:59 AM) 50 kg (04/27/22 1:31 AM) Social History Social History Type Response [...] MRI Safety Implantable Status Assigning Authority Unknown [id number] Unknown 10/04/21 Unknown Unknown Active Unknown History and physical note * Tierra LANG, Rj Rendon: MODIFY, PERFORM Event Display: History and Physical Hospital Authored Date: [id number] Patient: ??ASHER JUÁREZ ? Age:??31 Years?Sex:??Female?:??1990?? Chief Complaint/Reason for Consultation Dyspnea and cough. History of Present Illness 31-year-old female??with a history of asthma, depression, endometriosis, pseudoseizures, tobacco use disorder has??admitted to the ER with??shortness of breath. She reports??dyspnea since yesterday accompanied by productive cough, chest tightness, headache.?? She smokes 3 cigarettes/day, trying to cut down. In ER she stated??chest tightness??and??no improvement for home nebulization therapy??and found to have seizure-like activity in the waiting room. ?? After coming to ER, vitals??unremarkable, labs significant for wcc 13.1, CXR normal.?? Received nebulizer therapy. ?? After coming to??D3 floor patient??was found to have seizure-like activity x 2 times,??received??p.o. Ativan.Neurology recs Nonepileptic events based on prior testing and observed event.??No need for additional testing at this time.??Recommend outpatient followup with behavioral health. CT head neg. Review of Systems Constitutional:??No weight loss, fever, chills, weakness or fatigue. HEENT:??No visual loss, blurred vision, double vision or yellow sclera. Skin:??No rash or itching. Cardiovascular:??No chest pain, chest pressure or chest discomfort. No palpitations or pedal edema. Respiratory:??positive for ??shortness of breath, cough or sputum production. Gastrointestinal:??No anorexia, nausea, vomiting or diarrhea. No abdominal pain or blood in stool. Genitourinary:??No burning micturition. No urinary frequency or incontinence. Neurologic:??No?? dizziness, syncope, unilateral weakness, ataxia, numbness or tingling in the extremities. No change in bowel or bladder control. Musculoskeletal:??No muscle pain, back pain, joint pain or stiffness. Hematologic:??No bleeding or bruising. Lymphatics:??No enlarged lymph nodes. Psychiatric:??No depression or anxiety. Endocrine:??No reports of sweating. No cold or heat intolerance. No polyuria or polydipsia. Objective Vital Signs?? Temperature: 97.1 DegF (04/27/22 11::00) Temperature Route: Oral (04/27/22::) Pulse Rate: 76 bpm (04/27/22::) Respiratory Rate: 18 br/min (04/27/22 11:28:00) Systolic Blood Pressure: 115 mm Hg (04/27/22::) Diastolic Blood Pressure: 56 mm Hg (04/27/22 11::00) Blood pressure sites: Arm, right (04/27/22 11::00) Mean Arterial Pressure: 76 mm Hg (04/27/22::00) Pulse Pressure: 59 mm Hg (04/27/22::) Oxygen Saturation: 100 % (04/27/22 11::00) Mode of Delivery (Oxygen): Room air (04/27/22 11::00) Early Warning Score: 2 (04/27/22 11::39) ? Physical Exam General:??Alert, in no acute cardiopulmonary distress. Mental Status:??Oriented to person, place and time. Normal affect. Head:??Normocephalic, atraumatic. Eyes:??Pupils are equal, round and reactive to light. Extraocular muscles intact. Ear, Nose and Throat:??Oropharynx clear, mucous membranes moist. Ears and nose without masses, lesions or deformities. Tympanic membranes clear bilaterally. Trachea midline. Neck:??Supple, Full range of motion. Respiratory:??Clear to auscultation and percussion. No wheezing, rales or rhonchi. Cardiovascular:??Heart sounds normal. No thrills. Regular rate and rhythm, no murmurs, rubs or gallops. Gastrointestinal:??Abdomen soft, non-tender, non-distended. Normal bowel sounds. No pulsatile mass.No hepatosplenomegaly. Genitourinary:??No costovertebral angle tenderness. Neurologic:??Cranial nerves II-XII grossly intact. No focal neurological deficits. Deep tendon reflexes +2 bilaterally. Flexor plantar response. Moves all extremities spontaneously. Sensation intact bilaterally. Skin:??No rashes or lesions. No petechiae or purpura. No edema. Musculoskeletal:??No cyanosis or clubbing. No gross deformities. Normal range of motion. Assessment/Plan Diagnoses 31-year-old female??with a history of asthma, depression, endometriosis, pseudoseizures, tobacco use disorder has??admitted to the ER . ?? Asthma??exacerbation -Admit to medical floor. -Duo nebulization therapy??every 6 hourly. -No indication of systemic steroids as there is no wheezing - Smokes??3 cigarettes/day,??started nicotine patch??14 mg daily - Acute ??leukocytosis is due to smoking, repeat CBC am - continue IV fluids. ?? Pseudoseizures Likely secondary to anxiety/panic attacks. -Neurology recommendations as above. -No need further imaging. -P.o./IV Ativan as needed. -Need to see a therapist/psychiatrist??at discharge. ?? Pt is full code. DVT prophylaxis with Lovenox ?? OMN: IV fluids and nebulizer therapy,DC plan ??am ?? Histories Allergies Allergies ?(Active and Proposed Allergies Only) Other Food Allergy? 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 (Severity: Unknown severity, Onset: Unknown) ?Reactions: sneezing ? Past Medical History/Problem List Active Problems??(14) Asthma Chest pain, non-cardiac Depression Dissection of coronary artery possible (see dr leung's note 02/2014; speculative dx based on EKG with sinus tach and anterolat STD when 11/2013; echo wnl at time) Dizzinesses Endometriosis on pelvisoscopy w bx Dr Stacy 07/2015 Fall from slip, trip, or stumble Left inguinal hernia Partner HIV positive on [place] Pseudoseizure Right inguinal hernia Seizures Status post tubal ligation Underweight ? Past Surgical History Repair of right inguinal hernia with mesh (Jarvis technique): 02/25/18 Pelvic endometriosis- pelviscopy, laproscopic removal: 08/01/15 Repair left inguinal hernia with mesh: 07/22/14 Bilateral tubal ligation : 02/27/14 ? Social History Alcohol Details:??Use: Never. Substance Abuse Details:??Use: Current. ??Type: Cocaine. ??Other: Marijuana in the past. ??Frequency: 1-2 times permonth. Tobacco Details:??Use: 5-9 cigarettes (between 1/4 to 1/2 pack)/day in last 30 days. ??Other: states the amount varies. Details:??Current every day smoker, Other: 3 cigarettes a day. ??Type: Cigarettes. ? Family History Mother: Asthma; Depression; Diabetes mellitus type II; Epilepsy; Hypertension; Sleep apnea Father: Diabetes mellitus type II Sibling: Asthma; Depression ? Medications Home Medications Acetaminophen (acetaminophen 325 mg oral tablet)?650?Milligram?2?tablet?By Mouth?Every 4 hours?as needed?as needed for fever Albuterol (albuterol CFC free 90 mcg/inh inhalation aerosol)?2?puff(s)?Inhalation?Every6 hours?as needed?for 30?Days?Wheezing/Shortness of Breath Estradiol (estradiol 2 mg oral tablet)?1?tab(s)?2?Milligram?By Mouth?Daily ? Results Recent Labs BLOOD COUNT & DIFF WBC 13.1 k/mm3 (High)?? 04/26/2022 23:30 RBC 3.96 m/mm3 (Low)?? 04/26/2022 23:30 Hgb 11.4 Gm/dL (Low)?? 04/26/2022 23:30 Hct 36.5 % ()?? 04/26/2022 23:30 MCV 92.2 femtoliters ()?? 04/26/2022 23:30 MCH 28.8 pg ()?? 04/26/2022 23:30 MCHC 31.2 g/dL (Low)?? 04/26/2022 23:30 Platelet Count 269 k/mm3 ()?? 04/26/2022 23:30 RDW-SD 54.2 femtoliters (High)?? 04/26/2022 23:30 MPV 10.3 femtoliters ()?? 04/26/2022 23:30 Nucleated RBC (Automated) 0.0 #/100 WBC'S ()?? 04/26/2022 23:30 Abs. NRBC 0.0 k/mm3 ()?? 04/26/2022 23:30 Abs. Neut 9.0 k/mm3 (High)?? 04/26/2022 23:30 Abs. Lymph 2.4 k/mm3 ()?? 04/26/2022 23:30 Abs. [place] 1.1 k/mm3 (High)?? 04/26/2022 23:30 Abs. Eo 0.6 k/mm3 (High)?? 04/26/2022 23:30 Abs. Baso 0.0 k/mm3 ()?? 04/26/2022 23:30 Neut % 68.5 % ()?? 04/26/2022 23:30 Lymph % 18.1 % ()?? 04/26/2022 23:30 [place] % 8.6 % ()?? 04/26/2022 23:30 Eos % 4.2 % ()?? 04/26/2022 23:30 Baso % 0.3 % ()?? 04/26/2022 23:30 Imm Gran 0.3 % ()?? 04/26/2022 23:30 Abs. Imm Gran 0.0 k/mm3 ()?? 04/26/2022 23:30 ?? CARDIAC High Sensitivity Troponin (HSTnT) <6 ng/L ()?? 04/26/2022 23:30 ?? CHEM GENERAL Sodium 142 mmol/L ()?? 04/26/2022 23:30 Potassium 3.8 mmol/L ()?? 04/26/2022 23:30 Chloride 105 mmol/L ()?? 04/26/2022 23:30 Bicarbonate Level 28 mmol/L ()?? 04/26/2022 23:30 Anion Gap 9 ()?? 04/26/2022 23:30 Glucose Level 80 mg/dL ()?? 04/26/2022 23:30 Glucose, POC 97 mg/dL ()?? 04/26/2022 23:00 BUN 6 mg/dL ()?? 04/26/2022 23:30 Creatinine-Blood 0.7 mg/dL ()?? 04/26/2022 23:30 Estimated GFR Creatinine 113 ML/MIN/1.73 M2 ()?? 04/26/2022 23:30 Calcium 9.5 mg/dL ()?? 04/26/2022 23:30 ?? VIROLOGY COVID-19 POC Result NEGATIVE ()?? 04/26/2022 21:49 ? EKG study * Event Display: EKG Authored Date: Hospital Progress note * Shiela Mays RN: PERFORM, SIGN, VERIFY Event Display: Progress Note Hospital Authored Date: Patient: ASHER JUÁREZ Age: 31 years Sex: Female : 1990 Associated Diagnoses: None Author: Shiela Mays RN Findings Narrative/Incidental Pt A/Ox4, no SOB,no CP V/S stable. had seizure event once lasted for 3mins. No tonic clonic movement, post seizure lasted less than 2mins. .5 lorazepam IVP given. notified student education specialist MD. seen by MD.unable to respond when attempted to speak with the pt. seizure precaution in place. side rails up, bed alarm on. callbell within reach. will continue to monitor.. * Kaycee Darby NP: PERFORM, MODIFY Event Display: Progress Note Hospital Authored Date: Patient: ??ASHER JUÁREZ ? Age:??31 Years?Sex:??Female?:??1990?? Cross Cover Note: 5:30 p.m. RN paged re: patient had 4x seizures within the last hour.Seizure lasted about 3 minutes in which patient had fast respiration and rapid eye movement through seizure, no tonic clonic movement noted,??and ??unable to respond when attempting to speak with patient.Ordered lorzepam IV. ?? 6:30 p.m. A follow up was made, no further seizures noted so far. * German Heaton DO: PERFORM Event Display: Progress Note Hospital Authored Date: At approximately 9:53PM was paged for seizure like activity lasting 3 minutes without tonic clonic movement reported. Patient was assessed at bedside resting comfortably without seizure activity. Shereceived her PRN ativan. * Hector TIDWELL, Roxana: SIGN, MODIFY, MODIFY, SIGN, VERIFY, PERFORM, SIGN Event Display: Progress Note Hospital Authored Date: [id number] Patient: ASHER JUÁREZ Age: 31 years Sex: Female : 1990 Associated Diagnoses: None Author: Roxana Young RN Pt A&O x3. VSS. No vision changes over night. Pt educated on using the call arroyo if experiencing CP, SOB or Dizziness and not to get oob without assistance. IV's assessed and patent. Pt reports of constant h/a that is bilateral 10/17, given Tylenol at this time and reports of no numbness or tingling of the extremities. Pt has positive peripheral pulses, no chest pain and no edema. Pt is safely independent with ambulation. Skin is intact with no rash or breakdown. Lung sounds are clear, pt onRA and states SOB at rest and on exertion and recent dry cough, pt given NEB tx at time of assessment. Pt BS x4, and denies Nausea or Vomiting. Pt abdomen is flat, soft and non-tender to touch. Last BM 04/26. Pt ambulating to the BR and reports no complaints burning when urinating and no difficulty starting or maintaining a stream. Pt is a high fall risk and seizure precaution are applied to bed. Will continue to monitor and report any changes. Pt has call arroyo and personal belongings within reach at this time. 1130: Pt heard to have heavy breathing, PCT notified RN. Seizure lasted about 3 minutes in which pthad fast respiration and rapid eye movement through seizure, no tonic clonic movement noted, pt unable to respond when attempting to speak with patient. Heavy breathing post seizure for about 2 minutes. VS once pt retuned to normal LOC 97.1 115/60 pulse 76 100% on RA and RR 22. Notified provider, offered pt IV Ativan, but denied medication at this time. * Roxana Young RN: PERFORM Event Display: Progress Note Hospital Authored Date: [id number] 1730 RN came back from break, on report pt had x3 seizures from [id number]. at 1722 pt started having seizure activity VSS, POC 101 and pt stating Fire when grabbing the left leg. pt has minimal response when spoken to. PRODUCTION DRILLING MACHINE OPERATOR on the floor for different pt and performed mini neuro assessment with no residual. provider notified. Note * Khushi Dempsey RN: PERFORM Event Display: Discharge/Transfer Note Hospital Authored Date: [id number] Nursing Discharge Note Entered On: 04/28/2022 15:54 EST Performed On: 04/28/2022 15:54 EST by Khushi Dempsey RN Nursing Discharge Note 2 Discharge Time : 04/28/2022 15:51 EST Discharge Level of Care at Discharge : Home/Long-Term/Foster Care Patient Left Unit Via : Wheelchair Patient Accompanied Off Unit with : Responsible adult DC Instructions Provided & Signed by Pt : Yes Patient Understands D/C Instructions : Yes Patient Instructions Discharge Signed : Yes Did Pt have Specialty Bed or Wound Vac : No Khushi Dempsey RN - 04/28/2022 15:54 EST * Tierra LANG, Rj Rendon: PERFORM, MODIFY, MODIFY, MODIFY Event Display: Discharge/Transfer Note Hospital Authored Date: [id number] Patient: ??ASHER JUÁREZ ? Age:??31 Years?Sex:??Female?:??1990?? Patient Information Discharge Location: [facility] Primary Care Physician: Shabana Soto MD, I Admit Date/Time: 04/26/22 21:18 Discharge Disposition Discharge Disposition: ?? Discharge Diagnosis Asthma exacerbation (J45.901) Pseudoseizures ?? _ Discharge Medications Acetaminophen (acetaminophen 325 mg oral tablet)?650?Milligram?2?tablet?By Mouth?Every 4 hours?as needed?as needed for fever Albuterol (albuterol CFC free 90 mcg/inh inhalation aerosol)?2?puff(s)?Inhalation?Every6 hours?as needed?for 30?Days?Wheezing/Shortness of Breath Estradiol (estradiol 2 mg oral tablet)?1?tab(s)?2?Milligram?By Mouth?Daily Nicotine (nicotine 14 mg/24 hr transdermal film, extended release)?1?patch(es)?Topically?Daily ? Quality Measures Tobacco Use Treatment:?Cessation Medication Prescribed on Discharge:??Tobacco Cessation Medication Prescribed ? Vaccinations and Immunoprophylaxis hepatitis B adult vaccine: 0.5 mL (05/16/15 09:34:00) hepatitis B adult vaccine: 1 mL (12/07/14 14:48:00) hepatitis B adult vaccine: 1 mL (11/02/14 14:41:00) influenza virus vaccine, inactivated: 0.5 mL (12/09/18 08:58:00) influenza virus vaccine, inactivated: 0.5 mL (01/03/16 17:17:00) influenza virus vaccine, inactivated: 0.5 mL (12/07/14 14:47:00) influenza virus vaccine, inactivated: 0.5 mL (12/17/13 09:44:00) influenza virus vaccine, inactivated: 0.5 mL (02/11/13 09:25:00) pneumococcal 23-valent vaccine: 0.5 mL (01/15/15 10:36:00) tetanus/diphtheria/pertussis, acel(Tdap): 0.5 mL (12/17/13 09:44:00) tetanus/diphtheria/pertussis, acel(Tdap): 0.5 mL (02/07/13 20:47:00) FluLaval (oldterm): 0.5 mL (01/14/12 15:23:00) Tet/diphth/pertussis, acel (oldterm): 0.5 mL (11/16/10 22:36:00) ?? Medications Started Nicotine patch Allergies Allergies ?(Active and Proposed Allergies Only) Other Food Allergy? 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 (Severity: Unknown severity, Onset: Unknown) ?Reactions: sneezing ? PCP Follow-Up/Heads-Up PCP f/u in 1 week to rpt cbc. Hospital Course 31-year-old female??with a history of asthma, depression, endometriosis, pseudoseizures, tobacco use disorder has??admitted to the ER with??shortness of breath. She reports??dyspnea since yesterday accompanied by productive cough, chest tightness, headache.?? She smokes 3 cigarettes/day, trying to cut down. In ER she stated??chest tightness??and??no improvement for home nebulization therapy??and found to have seizure-like activity in the waiting room. After coming to ER, vitals??unremarkable, labs significant for wcc 13.1, CXR normal.?? Received nebulizer therapy. After coming to??D3 floor patient??was found to have seizure-like activity x 2 times,??received??p.o. Ativan.Neurology recs Nonepileptic events based on prior testing and observed event.??No need foradditional testing at this time.??Recommend outpatient followup with behavioral health. CT head neg. Objective Assessment and Plan 31-year-old female??with a history of asthma, depression, endometriosis, pseudoseizures, tobacco use disorder has??admitted to the ER . ?? Asthma??exacerbation - Likely secondary to smoking. -Improved with nebulization therapy - No indication of systemic steroids - Smokes??3 cigarettes/day,??continue nicotine patch??14 mg daily --Resolving leukocytosis due to smoking. cbc check within 1 week by pcp. ?? Pseudoseizures Likely secondary to anxiety/depression not seen CBT x 3 yrs, not taken meds. - She did have few seizure like episodes on the floor. - CT head negative - Neurology recs Nonepileptic events based on prior testing and observed event.??No need for additional testing at this time.??Recommend outpatient followup with behavioral health. -Talked to psychiatrist??- they will provide CBT information for pt to contact. ? Pt is clinically and hemodynamically stable?? and better at discharge ?? Vital Signs?? Temperature: 97.7 DegF (04/28/22 11:17:00) Temperature Route: Oral (04/28/22:17:00) Pulse Rate: 76 bpm (04/28/22 11:17:00) Respiratory Rate: 18 br/min (04/28/22:17:00) Systolic Blood Pressure: 99 mm Hg (04/28/22:17:00) Diastolic Blood Pressure:??48 mm Hg??Low (04/28/22:17:00) Blood pressure sites: Arm, left (04/28/22:17:00) Mean Arterial Pressure: 65 mm Hg (04/28/22:17:00) Pulse Pressure: 51 mm Hg (04/28/22:17:00) Oxygen Saturation: 96 % (04/28/22:17:00) Mode of Delivery (Oxygen): Room air (04/28/22:17:) Early Warning Score: 3 (04/28/22 11:18:12) ? . Physical Exam General:??Alert, in no acute cardiopulmonary distress. Mental Status:??Oriented to person, place and time. Normal affect. Head:??Normocephalic, atraumatic. Eyes:??Pupils are equal, round and reactive to light. Extraocular muscles intact. Ear, Nose and Throat:??Oropharynx clear, mucous membranes moist. Ears and nose without masses, lesions or deformities. Tympanic membranes clear bilaterally. Trachea midline. Neck:??Supple, Full range of motion. Respiratory:??Clear to auscultation and percussion. No wheezing, rales or rhonchi. Cardiovascular:??Heart sounds normal. No thrills. Regular rate and rhythm, no murmurs, rubs or gallops. Gastrointestinal:??Abdomen soft, non-tender, non-distended. Normal bowel sounds. No pulsatile mass.No hepatosplenomegaly. Genitourinary:??No costovertebral angle tenderness. Neurologic:??Cranial nerves II-XII grossly intact. No focal neurological deficits. Deep tendon reflexes +2 bilaterally. Flexor plantar response. Moves all extremities spontaneously. Sensation intact bilaterally. Skin:??No rashes or lesions. No petechiae or purpura. No edema. Musculoskeletal:??No cyanosis or clubbing. No gross deformities. Normal range of motion. Pending Results Hold Blue Top Tube ordered on 04/26/2022 Home Health Face to Face ^HomeHealthFTF Results Discharge Labs BLOOD COUNT & DIFF WBC 11.5 k/mm3 (High)?? 04/28/2022 01:05 RBC 3.38 m/mm3 (Low)?? 04/28/2022 01:05 Hgb 10.0 Gm/dL (Low)?? 04/28/2022 01:05 Hct 30.8 % (Low)?? 04/28/2022 01:05 MCV 91.1 femtoliters ()?? 04/28/2022 01:05 MCH 29.6 pg ()?? 04/28/2022 01:05 MCHC 32.5 g/dL (Low)?? 04/28/2022 01:05 Platelet Count 240 k/mm3 ()?? 04/28/2022 01:05 RDW-SD 52.9 femtoliters (High)?? 04/28/2022 01:05 MPV 10.2 femtoliters ()?? 04/28/2022 01:05 Nucleated RBC (Automated) 0.0 #/100 WBC'S ()?? 04/28/2022 01:05 Abs. NRBC 0.0 k/mm3 ()?? 04/28/2022 01:05 Abs. Neut 9.0 k/mm3 (High)?? 04/26/2022 23:30 Abs. Lymph 2.4 k/mm3 ()?? 04/26/2022 23:30 Abs. [place] 1.1 k/mm3 (High)?? 04/26/2022 23:30 Abs. Eo 0.6 k/mm3 (High)?? 04/26/2022 23:30 Abs. Baso 0.0 k/mm3 ()?? 04/26/2022 23:30 Neut % 68.5 % ()?? 04/26/2022 23:30 Lymph % 18.1 % ()?? 04/26/2022 23:30 [place] % 8.6 % ()?? 04/26/2022 23:30 Eos % 4.2 % ()?? 04/26/2022 23:30 Baso % 0.3 % ()?? 04/26/2022 23:30 Imm Gran 0.3 % ()?? 04/26/2022 23:30 Abs. Imm Gran 0.0 k/mm3 ()?? 04/26/2022 23:30 ?? CARDIAC High Sensitivity Troponin (HSTnT) <6 ng/L ()?? 04/26/2022 23:30 ? CHEM GENERAL Sodium 142 mmol/L ()?? 04/26/2022 23:30 Potassium 3.8 mmol/L ()?? 04/26/2022 23:30 Chloride 105 mmol/L ()?? 04/26/2022 23:30 Bicarbonate Level 28 mmol/L ()?? 04/26/2022 23:30 Anion Gap 9 ()?? 04/26/2022 23:30 Glucose Level 80 mg/dL ()?? 04/26/2022 23:30 Glucose, POC 101 mg/dL (High)?? 04/27/2022 17:28 BUN 6 mg/dL ()?? 04/26/2022 23:30 Creatinine-Blood 0.7 mg/dL ()?? 04/26/2022 23:30 Estimated GFR Creatinine 113 ML/MIN/1.73 M2 ()?? 04/26/2022 23:30 Calcium 9.5 mg/dL ()?? 04/26/2022 23:30 ? MISC. CHEMISTRY Hold Gel Top SPECIMEN DISCARDED AFTER 1 WEEK ()?? 04/28/2022 01:05 ? VIROLOGY COVID-19 POC Result NEGATIVE ()?? 04/26/2022 21:49 ? 25_ minutes spent on discharge * Khushi Dempsey RN: PERFORM Event Display: Patient Education/Instruction Authored Date: [id number] Inpatient Adult Discharge Instructions [address] [address] Name: ASHER JUÁREZ : 1990 Visit: 04/26/2022 21:18:00 Current Date: 04/28/2022 15:03 Account: [id number] Inpatient Adult Discharge Instructions We would like to thank you for allowing us to assist you with your healthcare needs. The following includes patient education materials and information regarding your injury/illness. Our entire staffstrives to provide an excellent experience for our patients and their families. PLEASE ENSURE YOU FOLLOW-UP PER THE INSTRUCTIONS BELOW! ?? YOUR OPINION IS IMPORTANT TO US! Please complete the survey you may receive by mail or email. Your feedback will be used to make improvements to the healthcare experiences of our patients and their families. Surveys are administered by [employer] ?? If further treatment with your primary care physician or another doctor is recommended, it is important for you to keep the appointment. Call your primary care physician or return to the Emergency Department immediately if your condition worsens, fails to improve, or new symptoms develop. If you need to find a doctor, you can call [facility] for a referral at [phone] or toll free at [phone]) or log in to [email or web address].. ?? You can view and manage your care through the patient portal or by using a health care elba of your choosing. [facility] is a website that allows you to securely view your medical information including your hospital discharge summary, office visit summaries, medications and follow-up visits. You can also request appointments, renew medications, and request access to your medical information using a health care elba of your choosing, or just ask a question. You can enroll at [email or web address] or register during your next office visit. You have been discharged from [facility], Patient Care Unit: D3B. If you have any questions regarding these instructions after you leave, please call us and we will be happy to assist you. [facility] Your Care Team Attending Physician Gamaliel LANG, Eliane Discharging Providers Tierra LANG, Rj Rendon Reason for Admission General medical Your Diagnosis Asthma exacerbation Tests Performed Below is a partial list of the tests performed during your hospitalization. You may have had other tests and procedures not included in this list. Please discuss all test results with your provider. Basic Metabolic Panel CBC CBC w/ Differential COVID-19 RNA POC GLUCOSE POC High??Sensitivity??Troponin T HOLD GEL TUBE CT Head/Brain W/O Contrast XR Chest Portable Primary Care Provider Shabana Soto MD, I Advance Directive Health Care Proxy on File Yes - Health Care Proxy Discharge Vitals Temperature: 97.7 DegF Height: 173 cm Pulse Rate: 76 bpm Weight: 50 kg Respiratory Rate: 18 br/min Body Mass Index:??16.71 kg/m2??Low Systolic Blood Pressure: 99 mm Hg Body surface area: 1.55 Diastolic Blood Pressure:??48 mm Hg??Low ?? Oxygen Saturation: 96 % ?? Studies Pending All tests and labs ordered during this hospital stay have been completed unless listed below. Please discuss all pending results with your provider listed above in these instructions. ?? Hold Blue Top Tube What to do next Instructions From Your Doctor Discharge Orders Discharge Medications ASHER JUÁREZ :1990 Visit Date:04/26/2022 Medications: Please continue your medications until treatment is completed or stopped by your provider. Medications not listed below should be discontinued. Discuss any questions related to medications with your provider. What How Much When Instructions Next Dose New Nicotine (nicotine 14 mg/ 24 hr transdermal film, extended release) 1 patch(es) Topically Daily Pickup at [place], [place] - [phone] 04/29 9am Unchanged Acetaminophen (acetaminophen 325 mg oral tablet) 2 tab(s) Oral Every 4 hours as needed for as needed for fever 04/28 7pm Unchanged Albuterol (albuterol CFC free 90 mcg/ inh inhalation aerosol) 2 puff(s) Inhalation Every 6 hours as needed for Wheezing/Shortness of Breath Duration: 30 Days 04/28 9pm Unchanged Estradiol (estradiol 2 mg oral tablet) 1 tab(s) Oral Daily 04/29 9am Pharmacy Information [place], [place] - [phone]: [address], [place] [id number] [phone] Test Results Below is a partial list of the most recent Laboratory test results done prior to this discharge. You may have had other tests and procedures not included in this list. Please discuss all test resultswith your provider. Basic Metabolic Panel (04/26/2022) ???Sodium - 142 mmol/L???Potassium - 3.8 mmol/L???Chloride - 105 mmol/L???Bicarbonate Level - 28 mmol/L???Anion Gap - 9???Glucose Level - 80 mg/dL???BUN - 6 mg/dL???Creatinine-Blood - 0.7 mg/dL???Estimated GFR Creatinine - 113 ML/MIN/1.73 M2???Calcium - 9.5 mg/dL CBC (04/28/2022) ???WBC - 11.5 k/mm3???RBC - 3.38 m/mm3???Hgb - 10.0 Gm/dL???Hct - 30.8 %???MCV - 91.1 femtoliters???MCH - 29.6 pg???MCHC - 32.5 g/dL???Platelet Count - 240 k/mm3???RDW-SD - 52.9 femtoliters???MPV - 10.2 femtoliters???Nucleated RBC (Automated) - 0.0 #/100 WBC'S???Abs. NRBC - 0.0 k/mm3 CBC w/ Differential (04/26/2022) ???WBC - 13.1 k/mm3???RBC - 3.96 m/mm3???Hgb - 11.4 Gm/dL???Hct - 36.5 %???MCV - 92.2 femtoliters???MCH - 28.8 pg???MCHC - 31.2 g/dL???Platelet Count - 269 k/mm3???RDW-SD - 54.2 femtoliters???MPV - 10.3 femtoliters???Nucleated RBC (Automated) - 0.0 #/100 WBC'S???Abs. NRBC - 0.0 k/mm3???Abs. Neut - 9.0 k/mm3???Abs. Lymph - 2.4 k/mm3???Abs. [place] - 1.1 k/mm3???Abs. Eo - 0.6 k/mm3???Abs. Baso - 0.0 k/mm3???Neut % - 68.5 %???Lymph % - 18.1 %???[place] % - 8.6 %???Eos % - 4.2 %???Baso % - 0.3 %???Imm Gran - 0.3 %???Abs. Imm Gran - 0.0 k/mm3 COVID-19 RNA POC (04/26/2022) ???COVID-19 POC Result - NEGATIVE GLUCOSE POC (04/27/2022) ???Glucose, POC - 101 mg/dL High??Sensitivity??Troponin T (04/26/2022) ? 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 Chest pain, non-cardiac?? Depression?? Dissection of coronary artery possible (see dr leung's note 02/2014; speculative dx based on EKG with?? Dizzinesses?? Endometriosis on pelvisoscopy w bx Dr Stacy 07/2015?? Fall from slip, trip, or stumble?? Left inguinal hernia?? Partner HIV positive on [place]?? Pseudoseizure?? Right inguinal hernia?? Seizures?? Status post tubal ligation?? Underweight?? Education Materials Below is the list of Educational Leaflet Providered with your Discharge Instructions. Valuables and Belongings I fully understand and agree that [facility] accepts no responsibility for all my personal property including clothing, toilet articles, radios, jewelry, dentures, hearing aids, rings, money, or any other property that is in my possession or is brought to me after admission. I understand certain valuables may be placed in a hospital safe for a short period of time. I understand that the hospital is not liable for loss or damage due to accident, fire, or other natural occurrence while said property is in the safe. I accept full responsibility for any personal property that I keep with me, and will not hold the hospital responsible in case of loss or disappearance. I acknowledge that i have been encouraged to send valuables and belongings home. ?? Review of Valuable and Belonging List: With patient Date for Pt to Sign Valuables/Belongings: 04/27/22 03:21:00 ?? Other Discharge Information ? Pulmonary Rehab Status?? Pulmonary Rehab Discharge Status?? Respiratory Rate: 18 br/min ? Common Emergency Awareness Tips IS IT A STROKE? Act FAST and Check for these signs: FACE Does the face look uneven? ARM Does one arm drift down? SPEECH Does their speech sound strange? TIME Call at any sign of stroke ?? Heart Attack Signs Chest discomfort: Most heart attacks involve discomfort in the center of the chest and lasts more than a few minutes, or goes away and comes back. It can feel like uncomfortable pressure, squeezing, fullness or pain. Discomfort in upper body: Symptoms can include pain or discomfort in one or both arms, back, neck, jaw or stomach. Shortness of breath: With or without discomfort. Other signs: Breaking out in a cold sweat, nausea, or lightheaded. Remember, MINUTES DO MATTER. If you experience any of these heart attack warning signs, call to get immediate medical attention! ?? Smoking can increase your chances of developing chronic health problems and can cause harmful effects to other family members in your house. If you smoke, you are strongly encouraged to quit. Please call [facility] at [phone] or [phone]) or log in to [email or web address] for referrals to smoking cessation programs. ?? The National Suicide Prevention Hotline is available 30/09 if you or someone you know needs to find a reason to keep living. By calling 5-083-747-ThoughtSpot (8912) you'll be connected to a skilled, trained counselor at a crisis center in your area. INPATIENT DISCHARGE INSTRUCTIONS SIGNATURE PAGE LUCY JUÁREZKAYLAN Location:[facility] Registration Date and Time:04/26/2022 21:18 [facility] Primary Care Physician: Shabana Soto MD, I, ASHER ROSS, have received the above patient education materials/instructions and have verbalized understanding. If ambulance or transport services are being used I further acknowledge being given a choice of service. ?? If you need to contact me, please call me at this number: . Patient/Resource Protection Specialist Name: Patient/Resource Protection Specialist Signature: Relationship to Patient: Witness Name/Signature: Date: * Khushi Dempsey RN: PERFORM Event Display: Patient Education Leaflets Authored Date: [id number] Asthma (Adult) ?? [id number] Asthma (Adult) Asthma is a disease where the medium and??small air passages in the lung go into spasm and restrictair flow. Inflammation and swelling of the airways cause further blockage. During an acute asthma attack, these factors cause trouble breathing, wheezing, cough, and chest tightness. An asthma attack can be triggered by many things. Common triggers include infections such as the common cold, bronchitis, and pneumonia. Irritants such as smoke or pollutants in the air, very cold air, emotional upset, and exercise can also trigger an attack. In??many adults with asthma, allergies to??dust, mold, pollen, and animal dander can cause an asthma attack. Skipping doses of daily asthmamedicine can also bring on an asthma attack. Asthma can be controlled using the??correct medicines prescribed by your healthcare provider and staying away from known triggers including allergens and irritants. Home care ??? Take prescribed medicine exactly at the times advised. If you need medicine such as from a handheld inhaler or aerosol breathing machine more than every 4 hours, contact your healthcareprovider or get medical care right away. If you are prescribed an antibiotic or prednisone, take all of the medicine as prescribed. Keep taking it even if you are feeling better after a few days. ??? Don't smoke. Stay away from the smoke of others. ??? Some people with asthma find their symptoms get worse when they take aspirin and non-steroidal or fever- reducing medicines such as ibuprofen and naproxen. Talk with your healthcare provider if you think this may apply to you. ?? Follow-up care Follow up with your healthcare provider, or as advised. Always bring all of your current medicines to any appointments with your healthcare provider. Also bring a complete list of medicines, even??those not taken for asthma. If you don't already have one, talk with your healthcare provider about making your own Asthma Action Plan. A pneumonia (pneumococcal)??vaccine and yearly flu shot (every fall) are advised. Ask your providerabout this. ?? When to get medical advice Call your healthcare provider or get medical care right away if any of these occur:? More wheezing or shortness of breath ??? Need to use your inhalers more often than normal without relief ??? Fever of 100.4??F (38??C) or higher, or as directed by your provider ??? Coughing up lots of dark-colored or bloody sputum (mucus) ??? Chest pain with each breath ??? If you use a peak flow meter as part of an Asthma Action Plan, and you are still in the yellow zone (50% to 80%) 15 minutes after using inhaler medicine. ?? Call 911 Call 911 if any of these occur: ??? Trouble walking or talking because you are short of breath ??? If you use a peak flow meter as part of an Asthma Action Plan, and??you are still in the red zone (less than 50%) 15 minutes after using inhaler medicine ??? Lips or fingernails turn lima, purple, or blue ??? Feeling faint or loss of consciousness ?? Last Reviewed Date: 2018 ?? [id number] [employer]. All rights reserved. This information is not intended as a substitute for professional medical care. Always follow your healthcare professional's instructions. ?? * Roselyn TIDWELL, Khushi: PERFORM Event Display: Patient Education Leaflets Authored Date: [id number] Acute Severe Asthma ?? DM8 Acute Severe Asthma What is acute severe asthma? Acute severe asthma is a sudden severe asthma attack that doesn't get better after taking asthma medicine. This type of asthma is life-threatening. If you think someone is having a severe asthma attack, call 911 right away. The main treatment is done in the emergency room and the hospital. But early treatment done by first responders can save lives. ?? What causes acute severe asthma? Any person with asthma can have an acute severe flare-up. Causes can include: ??? Having an infection, such as a cold or sinus infection ??? Having a severe allergic reaction ??? Inhaling irritants ??? Not taking prescribed medicine ??? Exercising ?? Who is at risk for acute severe asthma? You may be at risk for acute severe asthma if you: ??? Have had a severe asthma attack in the past ??? Have trouble noticing when you are having asthma symptoms or how bad those symptoms are ??? Have asthma attacks even when using oral glucocorticoids ??? Don???t take your asthma medicines as prescribed ??? Use illegal drugs ??? Have other health problems, such as depression, heart disease, or lung disease ?? What are the symptoms of acute severe asthma? The symptoms of acute severe flare-ups often happen over hours or days. But they can come on faster. They are: ??? Worsening trouble breathing and wheezing ??? Fast breathing ??? Worsening cough and chest tightness ??? Inability to breathe when laying down ??? Trouble walking and talking ??? Sweating ??? Fastheart rate ??? Confusion or irritability ?? How is acute severe asthma diagnosed? Acute severe asthma is life-threatening. So quick diagnosis is important. If you think you or someone you know is having a severe asthma attack, call 911. Healthcare providers will ask about your symptoms. They will give you a physical exam. You may need these tests: ??? Peak expiratory flow. This test can gauge lung function. ??? Pulse oximetry. This test measuresthe level of oxygen in your body. ??? Chest X-ray. This test may be done in severe cases. Or it maybe done if your healthcare provider thinks you may have some other health problem. ?? How is acute severe asthma treated? Treatment for acute severe asthma is often done in a hospital. Your healthcare provider will focus on opening up your airways and helping you breathe easier. You may need: ??? Medicines. Your healthcare provider will give you medicines to ease your symptoms. These may beinhaled, swallowed, or given through an IV (intravenous) line. ??? Magnesium sulfate. This may be used if other medicines don???t work. It???s given through an IV. ??? Supplemental oxygen. This helpsraise oxygen levels in your body. ??? Ventilator. If other treatments don???t work, you may be put on a machine to help you breathe. ?? What can I do to prevent severe acute asthma? To help prevent acute severe flare-ups, be sure to: ??? Know and stay away from those things that cause your flare-ups. ??? Try to stay away from people who are sick. ??? Wash your hands often. ??? Talk with your healthcare provider about vaccines youshould get. ??? If you have severe allergies, go to an mammography technician. ??? If you smoke, get help to quit. Stay away from secondhand and thirdhand smoke, too. ??? Take asthma medicines as directed. This includes your long-term control medicines.??It's important to take them even if you feel like your asthma is under control. ??? If exercise is a trigger, make sure you use your quick-relief medicine before you are active. Keep an inhaler in your purse, gym bag, or backpack. ??? Develop an Asthma Actio n Plan with your provider. Share the plan with your family members and close friends so they know when to call 911. ?? When should I call my healthcare provider? Call 911 right away if you are having an asthma attack and your symptoms don???t get better after you take your quick-relief or rescue medicines. ?? Burnett points about acute severe asthma ??? Acute severe asthma is a sudden severe asthma attack that doesn't get better after taking asthma medicine. ??? This type of asthma is life-threatening. Call 911 if you think you or someone you know is having a severe asthma attack. ??? Acute severe asthma can have various causes. These include an infection or an allergic reaction. ??? Treatment may include medicines and oxygen. ??? You can prevent acute severe asthma by knowing and staying away from what triggers your asthma. ??? An Asthma Action Plan can help you, your family, and friends know what treatments are needed and when to call 911. ?? Next steps Tips to help you get the most from a visit to your healthcare provider: ??? Know the reason for your visit and what you want to happen. ??? Before your visit, write down questions you want answered. ??? Bring someone with you to help you ask questions and remember what your provider tells you. ??? At the visit, write down the name of a new diagnosis, and any new medicines, treatments, or tests. Also write down any new instructions your provider gives you. ??? Know why a new medicine or treatment is prescribed, and how it will help you. Also know what the side effects are. ??? Ask if your condition can be treated in other ways. ??? Know why a test or procedure is recommended and what the results could mean. ??? Know what to expect if you do not take the medicine or have the test or procedure. ??? If you have a follow-up appointment, write down the date, time, and purpose for that visit. ??? Know how you can contact your provider if you have questions. ?? Last Reviewed Date: 2020 ?? [id number] [employer]. All rights reserved. This information is not intended as a substitute for professional medical care. Always follow your healthcare professional's instructions. ?? CT Head WO contrast * Mandi , VARUN S: BRIE Costa MD , Mitra M: VERIFY Event Display: Result: Authored Date: [id number] Examination: Noncontrast head CT performed on 04/27/2022. History: Seizure disorder. Technique and findings: Contiguous 5 mm axial images were obtained from the skull base to the vertex without intravenous contrast. A dose modulated weight-based protocol was used. Comparison is made to a prior study dated 10/28/2021. Mucosal thickening within the ethmoidal air cells is present.. The ventricular system and subarachnoid spaces are within normal limits. There is no intracranial hemorrhage, mass effect, or midline shift. No intra- or extra-axial fluid collections are identified. The osseous structures are unremarkable. Impression: There is no acute intracranial abnormality. WSN: [id number] Ordering Physician: Rj Mayorga Dictated By: Mitra Costa MD Dictated Date/Time: 04/27/22 2:00 pm Reviewed By: Mitra Costa MD Signed By: Mitra Costa MD Signed Date/Time: 04/27/22 2:00 pm Transcribed By: KARIE Transcribed Date/Time: 04/27/22 1:59 pm Portable XR Chest Views * JACQUISPrachel , CIS S: TRANSCRIBE Elmer Manuel MD: VERIFY Event Display: Result: Authored Date: [id number] Chest Portable INDICATION/CLINICAL QUESTION: Hx of Present Illness: SOB x 2 hrs; Reason: Shortness of Breath; Clinical Question(s): CHF / CHF TECHNIQUE: AP chest at 2325 hours. COMPARISON: 02/07/2022. FINDINGS: LINES AND TUBES: Absent. LUNGS AND PLEURA: RIGHT CHEST: The lung is clear and there is no effusion. LEFT CHEST: The lung is clear and there is no effusion. HEART AND MEDIASTINAL CONTOURS: Normal. BONES AND SOFT TISSUES: No acute abnormality.. IMPRESSION: 1. No active disease in chest. WSN: [id number] Ordering Physician: Priya Mendez Dictated By: Elmer Manuel MD Dictated Date/Time: 04/27/22 0:41 am Reviewed By: Elmer Manuel MD Signed By: Elmer Manuel MD Signed Date/Time: 04/27/22 0:41 am Transcribed By: KARIE Transcribed Date/Time: 04/27/22 0:41 am Patient Care team information Care Team Personnel Name: Mendy Spicer RN Position: [facility] RN Member Role: Primary Care Nurse Name: Shiela Mays RN Position: [facility] RN Member Role: Primary Care Nurse Name: Ashley Fields RN Position: [facility] W/ Merge Member Role: Primary Care Nurse Name: Keith Stacy MD Position: [facility] BITUMINOUS PAVING MACHINE OPERATOR Member Role: Lifetime BITUMINOUS PAVING MACHINE OPERATOR Physician Address: Address: [address] [place] [address] Name: Shabana Soto MD, I Position: [facility] Primary Care Physician Member Role: PCP Address: Address: [address] [place] [address]- Name: Robin Wagner Position: [facility] RN Member Role: Primary Care Nurse Name: Justin Francis RN Position: [facility] RN Member Role: Primary Care Nurse Name: Laya Montes RN Position: [facility] RN Member Role: Primary Care Nurse Name: Alice Juarez RN Position: [facility] RN Member Role: Primary Care Nurse Name: Fela Garcia RN Position: [facility] ED RN W/OE and Tasks Member Role: Primary Care Nurse Name: Anay Rouse RN Position: [facility] RN Member Role: Primary Care Nurse Name: Jennifer Weaver RN Position: [facility] RN Member Role: Primary Care Nurse Name: Roxana Young RN Position: [facility] RN Member Role: Primary Care Nurse Name: Megan Grant RN Position: [facility] ED RN W/OE and Tasks Member Role: Primary Care Nurse Name: Eliane Vo RN Position: [facility] RN Member Role: Primary Care Nurse Name: Neda Hernandez RN Position: [facility] PCO RN Member Role: Primary Care Nurse Name: Jamilah TURK Attending Position: [facility] ED Medicine MD Name: Linwood Jackson Position: [facility] ED TA [facility] Name: Priya Mendez DO Position: [facility] Resident Member Role: ED Resident Address: Address: [address] [place] [address] [place] [address]- Name: Jamel Saavedra RN Position: [facility] ED RN W/OE and Tasks Member Role: Patient Care Provider Care Team Related Persons Name: MENDEL MCKEON Address: home [address], [place] [address] Name: GIANA LAMAS Address: home [address] [place] [address] Name: ROSHNI JUÁREZ Address: [place] [address] Name: SINDHU SCHRADER Address: home [address] [place] [address] Name: CRAIG VACA Address: home [address] [place] [id number]
--- OUTSIDE RECORDS SUMMARY | 2022-07-04 14:36 | XMS_ITS | Continuity of Care Document ---
Author Name Unknown Organization [facility] ter Address [address] [place] [address]- Care Team Providers Care Special Education Para Professional Name Role Phone Charles LANG, Shabana Joe Primary Care Physician Encounter [facility] Date(s): 08/27/19 - 08/27/[address] [address]- [facility] Discharge Disposition: A-D/C Walkout Attending Physician: Not [...] 06/15/1912:44:37 EDT, Aerosol, Route to Pharmacy Electronically, [id number], [facility]/pharmacy #[id number], Compound Start Date: [...] Gm, 0 Refills, Maintenance, 07/27/19 19:54:00 EDT, [place], [facility]/pharmacy #[id number], 1 sprays Nares, [...] 07/27/19 19:56:00 EDT, [facility]acy Electronically, [facility] [...] 1 Oxygen Saturation [94-100 %] 100 % (08/27/19 6:15 AM) Pulse Rate [55-90 bpm] 66 bpm (08/27/19 6:15 AM) Blood Pressure [90-138/55-84 mm Hg] 121/ 75mm Hg (08/27/19 6:15 AM) Respiratory Rate [16-30 br/min] 16 br/mi n (08/27/19 6:15 AM) Temperature [96.8-100.4 DegF] 98.2 DegF (08/27/19 6:15 AM) Mode of Delivery (Oxygen) Room air (08/27/19 6:15 AM) Temperature Route Oral (08/27/19 6:15 AM) Social History Social History Type Response Smoking Status Current every day sm oker; Type: Cigarettes; Other: 3 cigarettes a day; entered on: 10/10/17 Sex Medical Equipment Implanted Date:02/25/18Target Site:Groin Right Description Quantity MRI Company Model MESH BARD 3X6IN 7.5X15CM - B SUSANNA ([id number]) 1 [address] Dav[address] 29 Unknown ANJELICA:No Information Assigning Authority: FDA
--- OUTSIDE RECORDS SUMMARY | 2022-07-04 14:36 | XMS_ITS | Continuity of Care Document ---
Author Name Unknown Organization [facility] ter Address [address] [place] [address]- Care Team Providers Care Peeled Potato Inspector Name Role Phone Charles LANG, Shabana Joe Primary Care Physician Encounter [facility] Date(s): 08/10/19 - 08/11/[address] [address]- [facility] Discharge Disposition: A-D/C Walkout Attending Physician: Not [...] 06/15/1912:44:37 EDT, Aerosol, Route to Pharmacy Electronically, [id number], [facility]/pharmacy #[id number], Compound Start Date: 06/15/18 Status: Ordered [...] Gm, 0 Refills, Maintenance, 07/27/19 19:54:00 EDT, [place], [facility]/pharmacy #[id number], 1 sprays Nares, Both 2 times a day, 174, cm, 12/09/18 8:31:00 EDT, Height, 50,kg, 04/10/19 4:52:00 EST, Dry Weight Start Date: 07/27/19 Status: Ordered ibuprofen 600 mg oral tablet 600 mg, 1, tablet, By Mouth, Every 8 hours, # 90 tablet, Refills 2, Tot. Refills 2, Maintenance, 03/05/19 3:09:00 EST, Route to Pharmacy Electronically, [facility]/pharmacy #[id number], 174, cm, 12/09/18 8:31:00 EDT, Height, 52.7, kg, 10/26/18 15:15:00 EDT, Dry We... Start Date: 03/05/19 Status: Ordered loratadine 10 mg oral tablet 10 mg, 1, tablet, By Mouth, Daily, # 30 tablet, Refills 0, Tot. Refills 0, Maintenance, 07/27/19 19:56:00 EDT, Route to Pharmacy Electronically, [facility]/pharmacy #[id number], 174, cm, 12/09/18 8:31:00 EDT, Height, [...] 2 Oxygen Saturation [94-100 %] 100 % (08/10/19 8:10 PM) 100 % (08/10/19 8:07 PM) Pulse Rate [55-90 bpm] 65 bpm (08/10/19 8:10 PM) 88 bpm (08/10/19 8:07 PM) Blood Pressure [90-138/55-84 mm Hg] 132/ 76mm Hg (08/10/19 8:10 PM) Respiratory Rate [16-30 br/min] 15 br/mi n *L* (08/10/19 8:10 PM) Temperature [96.8-100.4 DegF] 97.9 DegF (08/10/19 8:10 PM) Mode of Delivery (Oxygen) Room air (08/10/19 8:10 PM) Room air (08/10/19 8:07 PM) Blood pressure sites Arm, right (08/10/19 8:10 PM) Temperature Route Oral (08/10/19 8:10 PM) Dry Weight 50.3 kg (08/10/19 8:10 PM) Social History Social History Type Response Smoking Status Current every day yolis frazier; Type: Cigarettes; Other: 3 cigarettes a day; entered on: 10/10/17 Sex Medical Equipment Implanted Date:02/25/18Target Site:Groin Right Description Quantity MRI Company Model MESH BARD 3X6IN 7.5X15CM - B SUSANNA ([id number]) 1 Bard Davol 29 Unknown ANJELICA:No Information Assigning Authority: FDA
--- OUTSIDE RECORDS SUMMARY | 2022-07-04 14:36 | XMS_ITS | Continuity of Care Document ---
Author Name Unknown Organization [facility] ter Address [address] [place] [address]- Care Team Providers Care Sole Buffer Name Role Phone Shabana Soto MD, I Primary Care Physician [phone] Encounter [facility] [place] Date(s): 05/25/22 - 05/26/[address] [address]- Discharge Disposition: A-D/C Home Attending Physician: Ben Alvarenga MD Admitting Physician: Ben Alvarenga MD Referring Physician: Not on Staff, Referring [...] 10/30/21 15:13:00 EDT, Route to Pharmacy Electronically, [facility]/pharmacy #[id number],Partial fill upon patient request if the prescripti... Start Date: 10/30/21 Status: Ordered albuterol CFC free 90 mcg/inh inhalation aerosol 2, puffs, Inhalation, Every 6 hours, PRN, # 1 each, Refills 11, Tot. Refills 11, Maintenance, 10/10/21 9:46:00 EDT, Aerosol, Route to Pharmacy Electronically, [id number], [place], [place] - [id number], 173, c... Start Date: 10/10/21 Stop Date: 10/05/22 Status: Ordered dicyclomine 20 mg oral tablet 1 tablet = 20 mg, By Mouth, 3 times a day, For stomach cramping., # 21 tablet, 0 Refills, Maintenance, 05/24/22 11:58:00 EDT, Tablet, [facility]/pharmacy #[id number], Partial fill upon patient request if [...] 05/26/22 8:45:00 EDT, Route to Pharmacy Electronically, [facility]/pharmacy #[id number], Partial fill upon patient request if the prescription is for a schedule II opio... Start Date: 05/26/22 Status: Ordered famotidine 20 mg oral tablet 20 mg, 1, tablet, By Mouth, 2 times a day, # 180 tablet, Refills 0, Tot. Refills 0, Maintenance, 05/26/22 9:05:00 EDT, Route to Pharmacy Electronically, [facility]/pharmacy #1130, Partial fill upon patient request if the prescription is for a schedule II opi... Start Date: 05/26/22 Status: Ordered MorPHINE Inj 2 mg, Injection, IV Push Slowly, Every 5 minutes for 3 doses/times, PRN for Pain , Moderate, and SBP greater than 100, Routine, 05/25/22 21:08:00 EDT, Stop date Limited # of times Start Date: 05/25/22 Stop Date: 05/26/22 Status: Completed omeprazole 40 mg oral enteric coated capsule 1 capsule = 40 mg, By Mouth, Daily, For abdominal pain/ stomach acid/ reflux, # 14 capsule, 0 Refills, Maintenance, 05/24/22 11:59:00 EDT, EC Capsule, [facility]/pharmacy #1130, Partial fill upon patient request if the prescription is for a schedule II opioi... Start Date: 05/24/22 Stop Date: 06/07/22 Status: Ordered ondansetron 4 mg oral tablet, disintegrating 1 tablet = 4 mg, By Mouth, Every 8 hours, PRN as needed for nausea/vomiting, # 12 tablet, 0 Refills, Maintenance, 05/26/22 8:45:00 EDT, DIS Tablet, [facility]/pharmacy #[id number], Partial fill upon patient request if the prescription is for a schedule II opioid d... Start Date: 05/26/22 Status: Ordered ondansetron 4 mg oral tablet, disintegrating 1 tablet = 4 mg, By Mouth, Every 8 hours, PRN as needed for nausea/vomiting, # 14 tablet, 0 Refills, Maintenance, 05/26/22 9:05:00 EDT, DIS Tablet, [facility]/pharmacy #1130, Partial fill upon patient request if the prescription is for a schedule II opioid d... Start Date: 05/26/22 Status: Ordered predniSONE 5 mg oral tablet 1 tablet = 5 mg, By Mouth, Daily, # 5 tablet, 0 Refills, Maintenance, 04/29/22 13:40:00 EST, Tablet, [facility]/pharmacy #1130, Partial fill upon patient request if [...] Exam Date Time Procedure Performing Provider Status 05/26/22 8:04 AM US RUQ Jeniffer Maki; Auth ( Verified) Notes: (US RUQ) Reason For Exam: Choledocholithiasis RESULT: US RUQ US RUQ Hx of Present Illness: upper abd pain x7 days, N V, was seen at [facility] yestes[facility] dx gastritis. prescribed with protonix.; Reason: Choledocholithiasis; Clinical Question(s): Choledocholithiasis COMPARISON: Limited gallbladder ultrasound earlier same date FINDINGS: Liver: Normal in size and echotexture. No focal lesion. Smooth hepatic contour. Main portal vein patent with normal hepatopetal direction of flow. Gallbladder: No gallstones. Normal wall thickness. No pericholecystic fluid. Negative Hickman sign. Biliary Tree: No intrahepatic or extrahepatic bile duct dilation is identified. Common duct measures: 0.3 cm. Pancreas: No abnormality in the visualized portions of the pancreas. Right kidney: 10.0 cm in length. Normal parenchymal echotexture and thickness. No hydronephrosis, stone or mass. IMPRESSION: Normal right upper quadrant ultrasound. No evidence of gallstones, choledocholithiasis or biliary dilatation. I have personally reviewed the images and I agree with this report. WSN: [id number] Ordering Physician: Eliane Jacobsen Dictated By: Bharti Juares MD Dictated Date/Time: 05/26/22 8:31 am Reviewed By: Oxana Beal MD, I Signed By: Oxana Beal MD, I Signed Date/Time: 05/26/22 8:36 am Transcribed By: KARIE Transcribed Date/Time: 05/26/22 8:08 am * Exam Date Time Procedure Performing Provider Status 05/26/22 1:29 AM [employer] Adelaide Parikh; Auth (Verified) Notes: ([employer]) Reason For Exam: Abdominal Pain;Other: RESULT: US Abdomen Ltd [employer]dom[employer] Hx of Present Illness: upper abd pain x7 days, N V, was seen at [facility] yestesday dx gastritis. prescribed with protonix.; Reason: Other:; Abdominal Pain; Clinical Question(s): Cholecystitis COMPARISON: None. FINDINGS: Imaging performed limited to the gallbladder and common bile duct. Gallbladder: The gallbladder is contracted and there is what appears to be a wall echo shadow complex indicating gallstones, however retail center receptionist indicated that there were no stones on the preliminaryworksheet. To clarify, I would suggest repeating the ultrasound, with perhaps the gallbladder may be slightly more distended. No pericholecystic fluid. Negative Hickman sign, although patient receivedanalgesic premedication which may reduce the accuracy of this finding. The common bile duct is 0.3 cm. IMPRESSION: The gallbladder is contracted and there is what appears to be a wall echo shadow complex indicatinggallstones, however retail center receptionist indicated that there were no stones on the preliminary worksheet. To clarify, I would suggest repeating the ultrasound, when perhaps the gallbladder may be slightly more distended. If the findings are still equivocal, CT scan would be helpful. I have discussed this preliminary report and suggested plan with Dr. Eliane Jcaobsen in the emergency department at 7:20 AM 05/26/2022. I have personally reviewed the images and I agree with this report. WSN: [id number] Ordering Physician: Shaista Morris Dictated By: Bharti Juares MD Dictated Date/Time: 05/26/22 7:26 am Reviewed By: Oxana Beal MD, I Signed By: Oxana Beal MD, I Signed Date/Time: 05/26/22 7:31 am Transcribed By: KARIE Transcribed Date/Time: 05/26/22 1:36 am Vital Signs Most recent to oldest [Reference Range]: 1 2 3 Oxygen Saturation [94-100 %] 100 % (05/26/22 8:09 AM) 96 % (05/26/22 7:00 AM) 94 % (05/26/22 3:00 AM) Pulse Rate [55-90 bpm] 44 bpm *L* (05/26/22 8:09 AM) 70 bpm (05/26/22 7:00 AM) 68 bpm (05/26/22 3:00 AM) Blood Pressure [90-138/55-84 mm Hg] 108/84mm Hg (05/26/22 8:09 AM) 122/74mm Hg (05/26/22 7:00 AM) 128/76mm Hg (05/26/22 3:00 AM) Respiratory Rate [16-30 br/min] 18 br/min (05/26/22 7:00 AM) 18 br/min (05/26/22 5:00 AM) 18 br/min (05/26/22 3:00 AM) Temperature [96.8-100.4 DegF] 97.6 DegF (05/25/22 10:32 PM) 97.4 DegF (05/25/22 6:39 PM) 97.8 DegF (05/25/22 2:19 PM) Mode of Delivery (Oxygen) Room air (05/26/22 8:09 AM) Room air (05/26/22 7:00 AM) Room air (05/26/22 3:00 AM) Blood pressure sites Arm, right (05/26/22 8:09 AM) Arm, right (05/26/22 7:00 AM) Arm, right (05/26/22 3:00 AM) Temperature Route Oral (05/25/22 10:32 PM) Oral (05/25/22 6:39 PM) Oral (05/25/22 2:19 PM) Social History Social History Type Response [...] MRI Safety Implantable Status Assigning Authority Unknown [id number] Unknown 10/04/21 Unknown Unknown Active Unknown US Abdomen limited * [facility] , CIS S: TRANSCRIBE Bharti Juares MD: Oxana Escobar MD I: VERIFY Event Display: Result: Authored Date: [id number] [employer] Hx of Present Illness: upper abd pain x7 days, N V, was seen at [facility] yestesday dx gastritis. prescribed with protonix.; Reason: Other:; Abdominal Pain; Clinical Question(s): Cholecystitis COMPARISON: None. FINDINGS: Imaging performed limited to the gallbladder and common bile duct. Gallbladder: The gallbladder is contracted and there is what appears to be a wall echo shadow complex indicating gallstones, however retail center receptionist indicated that there were no stones on the preliminaryworksheet. To clarify, I would suggest repeating the ultrasound, with perhaps the gallbladder may be slightly more distended. No pericholecystic fluid. Negative Hickman sign, although patient receivedanalgesic premedication which may reduce the accuracy of this finding. The common bile duct is 0.3 cm. IMPRESSION: The gallbladder is contracted and there is what appears to be a wall echo shadow complex indicatinggallstones, however retail center receptionist indicated that there were no stones on the preliminary worksheet. To clarify, I would suggest repeating the ultrasound, when perhaps the gallbladder may be slightly more distended. If the findings are still equivocal, CT scan would be helpful. I have discussed this preliminary report and suggested plan with Dr. Eliane Jacobsen in the emergency department at 7:20 AM 05/26/2022. I have personally reviewed the images and I agree with this report. WSN: [id number] Ordering Physician: Shaista Morris Dictated By: Bharti Juares MD Dictated Date/Time: 05/26/22 7:26 am Reviewed By: Oxana Beal MD, I Signed By: Oxana Beal MD, I Signed Date/Time: 05/26/22 7:31 am Transcribed By: KARIE Transcribed Date/Time: 05/26/22 1:36 am US Abdomen RUQ * [facility] , CIS S: TRANSCRIBharti Bonds MD: Oxana Escobar MD, I: VERIFY Event Display: Result: Authored Date: [id number] US RUQ Hx of Present Illness: upper abd pain x7 days, N V, was seen at [facility] yestesday dx gastritis. prescribed with protonix.; Reason: Choledocholithiasis; Clinical Question(s): Choledocholithiasis COMPARISON: Limited gallbladder ultrasound earlier same date FINDINGS: Liver: Normal in size and echotexture. No focal lesion. Smooth hepatic contour. Main portal vein patent with normal hepatopetal direction of flow. Gallbladder: No gallstones. Normal wall thickness. No pericholecystic fluid. Negative Hickman sign. Biliary Tree: No intrahepatic or extrahepatic bile duct dilation is identified. Common duct measures: 0.3 cm. Pancreas: No abnormality in the visualized portions of the pancreas. Right kidney: 10.0 cm in length. Normal parenchymal echotexture and thickness. No hydronephrosis, stone or mass. IMPRESSION: Normal right upper quadrant ultrasound. No evidence of gallstones, choledocholithiasis or biliary dilatation. I have personally reviewed the images and I agree with this report. WSN: [id number] Ordering Physician: Eliane Jacobsen Dictated By: Bharti Juares MD Dictated Date/Time: 05/26/22 8:31 am Reviewed By: Oxana Beal MD, I Signed By: Oxana Beal MD, I Signed Date/Time: 05/26/22 8:36 am Transcribed By: KARIE Transcribed Date/Time: 05/26/22 8:08 am Patient Care team information Care Team Personnel Name: Mendy Spicer RN Position: [facility] RN Member Role: Primary Care Nurse Name: Shiela Mays RN Position: [facility] RN Member Role: Primary Care Nurse Name: Ashley Fields RN Position: [facility] W/ Natalie Member Role: Primary Care Nurse Name: Keith Stacy MD Position: [facility] HOSPITAL LABORATORY TECHNICIAN MD Member Role: [facility] HOSPITAL LABORATORY TECHNICIAN Physician Address: Address: [address] [place] [id number] Name: Shabana Soto MD, I Position: [facility] Primary Care Physician Member Role: PCP Address: Address: [address] [place] [address]- Name: Robin Wagner Position: S RN Member Role: Primary Care Nurse Name: Justin Francis RN Position: S RN Member Role: Primary Care Nurse Name: Laya Montes RN Position: S RN Member Role: Primary Care Nurse Name: Alice Juarez RN Position: S RN Member Role: Primary Care Nurse Name: Fela Garcia RN Position: [facility] ED RN W/OE and Tasks Member Role: Primary Care Nurse Name: Anay Rouse RN Position: [facility] RN Member Role: Primary Care Nurse Name: Jennifer Weaver RN Position: [facility] RN Member Role: Primary Care Nurse Name: Roxana Young RN Position: [facility] RN Member Role: Primary Care Nurse Name: Megan Grant RN Position: [facility] ED RN W/OE and Tasks Member Role: Primary Care Nurse Name: Eliane Vo RN Position: [facility] RN Member Role: Primary Care Nurse Name: David RN, Neda Li Position: [facility] PCO RN Member Role: Primary Care Nurse Name: Alejandra Hampton Position: [facility] ED RN W/OE and Tasks Member Role: Patient Care Provider Name: Ben Alvarenga MD Position: [facility] ED Medicine MD Member Role: Admitting Physician Address: Address: [address] [place] [address]- Name: Rubi Wise Position: [facility] ED TA [facility] Name: Jose Lopez RN Position: [facility] ED RN W/OE and Tasks Member Role: Patient Care Provider Name: Elaine Bunn MD Position: [facility] Resident Member Role: ED Resident Address: Address: [address] [place] [address]- Care Team Related Persons Name: MENDEL MCKEON Address: home [address], [place] [address] Name: GIANA LAMAS Address: home [address] [place] [address] Name: ROSHNI JUÁREZ Address: [place] [address] Name: SINDHU SCHRADER Address: home [address] [place] [address] Name: CRAIG VACA Address: home [address] [place] [address]
--- OUTSIDE RECORDS SUMMARY | 2022-07-04 14:36 | XMS_ITS | Continuity of Care Document ---
Author Name Unknown Organization [facility] Address [address] [place] [address]- Care Team Providers Care Physical Testing Supervisor Name Role Phone Charles LANG, Shabana Joe Primary Care Physician Encounter [facility] Date(s): 02/20/21 - 03/22/[address] [address]- Allergies, Adverse Reactions, Alerts Substance Reaction Severity [...] 06/15/1912:44:37 EDT, Aerosol, Route to Pharmacy Electronically, [id number], [facility]/pharmacy #[id number], Compound Start Date: 06/15/18 Status: [...] [id number], Partial fill upon patient request if the prescription is for a schedule II opioid drug... Start Date: 03/20/20 Status: Ordered fluticasone 50 mcg/inh nasal spray 1 sprays, Nares, Both, 2 times a day, # 16 Gm, 0 Refills, Maintenance, 07/27/19 19:54:00 EDT, [place], [facility]/pharmacy #[id number], 1 sprays Nares, Both 2 times a day, 174, cm, 12/09/18 8:31:00 EDT, Height, 50,kg, 04/10/19 4:52:00 EST, Dry Weight Start Date: 07/27/19 Status: Ordered ibuprofen 600 mg oral tablet 600 mg, 1, tablet, By Mouth, Every 8 hours, # 90 tablet, Refills 2, Tot. Refills 2, Maintenance, 03/05/19 3:09:00 EST, Route to Pharmacy Electronically, [facility]/pharmacy #[id number], 174, cm, 12/09/18 8:31:00 EDT, Height, 52.7, kg, 10/26/18 15:15:00 EDT, Dry We... Start Date: 03/05/19 Status: Ordered loratadine 10 mg oral tablet 10 mg, 1, tablet, By Mouth, Daily, # 30 tablet, Refills 4, Tot. Refills 4, Maintenance, 07/20/20 10:21:00 EDT, Route to Pharmacy Electronically, [facility]/pharmacy #[id number], 174, cm, 07/20/20 9:36:00 EDT, [...] 0 Refills, Maintenance, 08/19/20 21:01:00 EDT, Tablet, [facility]/pharmacy #[id number], Partial fill upon patient request if the [...] MESH BARD 3X6IN 7.5X15CM - B SUSANNA ([id number]) 1 [address] 29 Unknown ANJELICA:No Information Assigning Authority: FDA
--- OUTSIDE RECORDS SUMMARY | 2022-07-04 14:36 | XMS_ITS | Continuity of Care Document ---
Author Name Unknown Organization [facility] ter Address [address] [place] [address]- Care Team Providers Care Promotion Specialist Name Role Phone Shabana Soto MD, I Primary Care Physician [phone] Encounter [facility] Date(s): 10/30/21 - 10/31/[address] [address] Discharge Disposition: A-D/C Home Attending Physician: Keith Stacy MD Admitting Physician: Keith Stacy MD Referring Physician: Keith Stacy MD Allergies, Adverse Reactions, Alerts Substance Reaction [...] 10/30/21 15:13:00 EDT, Route to Pharmacy Electronically, [facility]/pharmacy #[id number],Partial fill upon patient request if the prescripti... Start Date: 10/30/21 Status: Ordered albuterol CFC free 90 mcg/inh inhalation aerosol 2, puffs, Inhalation, Every 6 hours, PRN, # 1 each, Refills 11, Tot. Refills 11, Maintenance, 10/10/21 9:46:00 EDT, Aerosol, Route to Pharmacy Electronically, [id number], [place], [place] - [phone], 173, c... Start Date: 10/10/21 Stop Date: 10/05/22 Status: Ordered docusate sodium 100 mg oral capsule 1 capsule = 100 mg, By Mouth, 2 times a day, PRN as needed for constipation, # 60 capsule, 0 Refills, Maintenance, 10/30/21 15:12:00 EDT, Capsule, [facility]/pharmacy #[id number], Partial fill upon patient request if the prescription is for a schedule II opioid dr... Start Date: 10/30/21 Status: Ordered Estrace 2 mg oral tablet 1 tablet = 2 mg, By Mouth, Daily, # 30 tablet, 0 Refills, Maintenance, 10/30/21 15:28:00 EDT, Tablet, [facility]/pharmacy #[id number], Partial fill upon patient request if the prescription is for a schedule II opioid drug., 173, cm, 10/27/21 23:24:00 EDT, Height,... Start Date: 10/30/21 Status: Ordered ibuprofen 600 mg oral tablet 600 mg, 1, tablet, By Mouth, 4 times a day, PRN, # 40 tablet, Refills 0, Tot. Refills 0, Maintenance, for pain, 10/30/21 15:12:00 EDT, Route to Pharmacy Electronically, [facility]/pharmacy #[id number], Partial fill upon patient request if the prescription is for a... Start Date: 10/30/21 Status: Ordered Ibuprofen Tablet 600 mg, Tablet, By Mouth, Every 6 hours, PRN for Pain , Mild, Routine, 10/30/21 15:41:00 EDT Start Date: 10/30/21 Stop Date: 10/31/21 Status: Discontinued oxyCODONE 5 mg oral tablet 5 mg, 1, tablet, By Mouth, Every 6 hours, PRN, # 20 tablet, Refills 0, Tot. Refills 0, Maintenance,as needed for pain, 10/30/21 15:13:00 EDT, Route to Pharmacy Electronically, [facility]/pharmacy #[id number], Partial fill upon patient request if the prescription... Start Date: 10/30/21 Status: Ordered OxyCODONE IR Tablet 5 mg, Tablet, By Mouth, Every 4 hours, PRN for Pain , Severe, Routine, 10/30/21 15:41:00 EDT Start Date: 10/30/21 Stop Date: 10/31/21 Status: Discontinued Senna 8.6 mg oral tablet 17.2 mg, 2, tablet, By Mouth, Daily at bedtime, # 50 tablet, Refills 0, Tot. Refills 0, Maintenance, 10/30/21 15:13:00 EDT, Route to Pharmacy Electronically, [facility]/pharmacy #[id number], Partial fill upon patient request [...] oldest [Reference Range]: 1 2 3 Weight 50.2 kg (10/30/21 11:23 AM) Oxygen Saturation [94-100 %] 99 % (10/31/21 7:00 AM) 100 % (10/30/21 11:00 PM) 100 % (10/30/21 7:37 PM) Pulse Rate [55-90 bpm] 72 bpm (10/31/21 7:00 AM) 66 bpm (10/30/21 11:00 PM) 54 bpm *L* (10/30/21 7:37 PM) Blood Pressure [90-138/55-84 mm Hg] 108/50mm Hg (10/31/21 7:00 AM) 122/60mm Hg (10/30/21 11:00 PM) 133/72mm Hg (10/30/21 7:37 PM) Respiratory Rate [16-30 br/min] 18 br/min (10/31/21 7:00 AM) 18 br/min (10/31/21 5:46 AM) 18 br/min (10/31/21 5:46 AM) Temperature [96.8-100.4 DegF] 98.2 DegF (10/31/21 7:00 AM) 98.3 DegF (10/30/21 11:00 PM) 98.5 DegF (10/30/21 7:37 PM) Liters per Minute 6 L/min (10/30/21 3:30 PM) 6 L/min (10/30/21 3:15 PM) 6 L/min (10/30/21 3:00 PM) Mode of Delivery (Oxygen) Room air (10/31/21 7:00 AM) Room air (10/30/21 11:00 PM) Room air (10/30/21 7:37 PM) Blood pressure sites Arm, right (10/31/21 7:00 AM) Arm, left (10/30/21 11:00 PM) Arm, left (10/30/21 7:37 PM) Temperature Route Oral (10/31/21 7:00 AM) Oral (10/30/21 11:00 PM) Oral (10/30/21 7:37 PM) Social History Social History Type Response [...] MRI Safety Implantable Status Assigning Authority Unknown [id number] Unknown 10/04/21 Unknown Unknown Active Unknown
--- OUTSIDE RECORDS SUMMARY | 2022-07-04 14:36 | XMS_ITS | Continuity of Care Document ---
Author Name Unknown Organization [facility] Address [address] [place] [address]- Care Team Providers Care Clerk Operator Name Role Phone Charles LANG, Shabana Joe Primary Care Physician [phone] Encounter [facility] Date(s): 08/02/21 - 09/01/[address] [address]- Allergies, Adverse Reactions, Alerts Substance Reaction Severity [...] 06/15/1912:44:37 EDT, Aerosol, Route to Pharmacy Electronically, [id number], [facility]/pharmacy #[id number], Compound Start Date: 06/15/18 Status: [...] 03/20/20 9:28:00 EST, [id number] Partial fill upon patient request if the prescription is for a schedule II opioid drug... Start Date: 03/20/20 Status: Ordered fluticasone 50 mcg/inh nasal spray 1 sprays, Nares, Both, 2 times a day, # 16 Gm, 0 Refills, Maintenance, 07/27/19 19:54:00 EDT, [place], [facility]/pharmacy #[id number], 1 sprays Nares, Both 2 times a day, 174, cm, 12/09/18 8:31:00 EDT, Height, 50,kg, 04/10/19 4:52:00 EST, Dry Weight Start Date: 07/27/19 Status: Ordered ibuprofen 600 mg oral tablet 600 mg, 1, tablet, By Mouth, Every 8 hours, # 90 tablet, Refills 2, Tot. Refills 2, Maintenance, 03/05/19 3:09:00 EST, Route to Pharmacy Electronically, [facility]/pharmacy #[id number], 174, cm, 12/09/18 8:31:00 EDT, Height, 52.7, kg, 10/26/18 15:15:00 EDT, Dry We... Start Date: 03/05/19 Status: Ordered loratadine 10 mg oral tablet 10 mg, 1, tablet, By Mouth, Daily, # 30 tablet, Refills 4, Tot. Refills 4, Maintenance, 07/20/20 10:21:00 EDT, Route to Pharmacy Electronically, [facility]/pharmacy #[id number], 174, cm, 07/20/20 9:36:00 EDT, Height, 50.1, kg, 10/14/19 23:21:00 EDT, Dry Weight Start Date: 07/20/20 Stop Date: 12/17/20 Status: Ordered meclizine 25 mg oral tablet 1 tablet = 25 mg, By Mouth, 2 times a day, # 10 tablet, 0 Refills, Acute 07/30/22 15:45:00 EDT, 07/29/21 15:45:00 EDT, Tablet, [facility]/pharmacy #[id number], Partial fill upon patient request if the [...] MESH BARD 3X6IN 7.5X15CM - B SUSANNA ([id number]) 1 Bard Davol 29 Unknown ANJELICA:No Information Assigning Authority: FDA
--- OUTSIDE RECORDS SUMMARY | 2022-07-04 14:36 | XMS_ITS | Continuity of Care Document ---
Author Name Unknown Organization [facility] Address [address] [place] [address]- Care Team Providers Care Geothermal Hvac Technician Name Role Phone Charles LANG, Shabana Joe Primary Care Physician [phone] Encounter [facility] Date(s): 02/21/20 - 03/22/[address] [address]- Allergies, Adverse Reactions, Alerts Substance Reaction Severity [...] 06/15/1912:44:37 EDT, Aerosol, Route to Pharmacy Electronically, [id number], [facility]/pharmacy #[id number], Compound Start Date: 06/15/18 Status: [...] 9:28:00 EST, [id number] Partial fill upon patient request if the prescription is for a schedule II opioid drug... Start Date: 03/20/20 Status: Ordered fluticasone 50 mcg/inh nasal spray 1 sprays, Nares, Both, 2 times a day, # 16 Gm, 0 Refills, Maintenance, 07/27/19 19:54:00 EDT, [place], [facility]/pharmacy #[id number], 1 sprays Nares, Both 2 times a day, 174, cm, 12/09/18 8:31:00 EDT, Height, 50,kg, 04/10/19 4:52:00 EST, Dry Weight Start Date: 07/27/19 Status: Ordered ibuprofen 600 mg oral tablet 600 mg, 1, tablet, By Mouth, Every 8 hours, # 90 tablet, Refills 2, Tot. Refills 2, Maintenance, 03/05/19 3:09:00 EST, Route to Pharmacy Electronically, [facility]/pharmacy #[id number], 174, cm, 12/09/18 8:31:00 EDT, Height, 52.7, kg, 10/26/18 15:15:00 EDT, Dry We... Start Date: 03/05/19 Status: Ordered loratadine 10 mg oral tablet 10 mg, 1, tablet, By Mouth, Daily, # 30 tablet, Refills 0, Tot. Refills 0, Maintenance, 07/27/19 19:56:00 EDT, Route to Pharmacy Electronically, [facility]/pharmacy #[id number], 174, cm, 12/09/18 8:31:00 EDT, Height, 50, kg, 04/10/19 4:52:00 EST, Dry Weight Start Date: 07/27/19 Status: Ordered nicotine 21 mg/24 hr transdermal film, extended release 1 patch, Topically, Daily, for 30 days, # 30 patch, 3 Refills, Acute 05/04/20 12:12:00 EST, 01/05/20 12:12:00 EDT, [place], [facility]/pharmacy #[id number], 1 patch Topically Daily,x30 days, 174, cm, 12/09/18 8:31:00 EDT, Height, 50.1, kg, 10/14/19 23:21:00 EDT, Dry... Start Date: 01/05/20 Stop Date: 05/04/20 Status: Ordered oxyCODONE 5 mg oral tablet See Instructions, take 0.5 tablet at onset of severe pain. if not better in 1 hr, take the remainder of the tablet. maximum use: 1 tablet/day masspat checked. partial fill permitted, # 5 tablet, Refills 0, Tot. Refills 0, Maintenance, 03/20/20 9:28... Start Date: 03/20/20 Status: Ordered Problem List Condition Effective Dates [...] MESH BARD 3X6IN 7.5X15CM - B SUSANNA ([id number]) 1 Bard Avalos 29 Unknown ANJELICA:No Information Assigning Authority: FDA
--- OUTSIDE RECORDS SUMMARY | 2022-07-04 14:37 | XMS_ITS | Continuity of Care Document ---
Author Name Unknown Organization [facility] Address [address] [place] [address]- Care Team Providers Care Glove Former Name Role Phone Charles LANG, Shabana Joe Primary Care Physician En[place] [facility] Date(s): 05/15/22 - 06/14/[address] [address]- Allergies, Adverse Reactions, Alerts Substance Reaction Severity [...] 10/30/21 15:13:00 EDT, Route to Pharmacy Electronically, [facility]/pharmacy #[id number],Partial fill upon patient request if the prescripti... Start Date: 10/30/21 Status: Ordered albuterol CFC free 90 mcg/inh inhalation aerosol 2, puffs, Inhalation, Every 6 hours, PRN, # 1 each, Refills 11, Tot. Refills 11, Maintenance, 10/10/21 9:46:00 EDT, Aerosol, Route to Pharmacy Electronically, [id number], [place], [place] - [id number], 173, c... Start Date: 10/10/21 Stop Date: 10/05/22 Status: Ordered dicyclomine 20 mg oral tablet 1 tablet = 20 mg, By Mouth, 3 times a day, For stomach cramping., # 21 tablet, 0 Refills, Maintenance, 05/24/22 11:58:00 EDT, Tablet, [facility]/pharmacy #[id number], Partial fill upon patient request [...] 05/26/22 8:45:00 EDT, Route to Pharmacy Electronically, [facility]/pharmacy #[id number], Partial fill upon patient request if the prescription is for a schedule II opio... Start Date: 05/26/22 Status: Ordered famotidine 20 mg oral tablet 20 mg, 1, tablet, By Mouth, 2 times a day, # 180 tablet, Refills 0, Tot. Refills 0, Maintenance, 05/26/22 9:05:00 EDT, Route to Pharmacy Electronically, [facility]/pharmacy #1130, Partial fill upon patient request if the prescription is for a schedule II opi... Start Date: 05/26/22 Status: Ordered omeprazole 40 mg oral enteric coated capsule 1 capsule = 40 mg, By Mouth, Daily, For abdominal pain/ stomach acid/ reflux, # 14 capsule, 0 Refills, Maintenance, 05/24/22 11:59:00 EDT, EC Capsule, [facility]/pharmacy #1130, Partial fill upon patient request if the prescription is for a schedule II opioi... Start Date: 05/24/22 Stop Date: 06/07/22 Status: Ordered ondansetron 4 mg oral tablet, disintegrating 1 tablet = 4 mg, By Mouth, Every 8 hours, PRN as needed for nausea/vomiting, # 12 tablet, 0 Refills, Maintenance, 05/26/22 8:45:00 EDT, DIS Tablet, [facility]/pharmacy #[id number], Partial fill upon patient request if the prescription is for a schedule II opioid d... Start Date: 05/26/22 Status: Ordered ondansetron 4 mg oral tablet, disintegrating 1 tablet = 4 mg, By Mouth, Every 8 hours, PRN as needed for nausea/vomiting, # 14 tablet, 0 Refills, Maintenance, 05/26/22 9:05:00 EDT, DIS Tablet, [facility]/pharmacy #1130, Partial fill upon patient request if the prescription is for a schedule II opioid d... Start Date: 05/26/22 Status: Ordered predniSONE 5 mg oral tablet 1 tablet = 5 mg, By Mouth, Daily, # 5 tablet, 0 Refills, Maintenance, 04/29/22 13:40:00 EST, Tablet, [facility]/pharmacy #1130, Partial fill upon patient request [...] MRI Safety Implantable Status Assigning Authority Unknown [id number] Unknown 10/04/21 Unknown Unknown Active Unknown Patient Care team information Care Team Personnel Name: Mendy Spicer RN Position: [facility] RN Member Role: Primary Care Nurse Name: Shiela Mays RN Position: [facility] RN Member Role: Primary Care Nurse Name: Ashley Fields RN Position: [facility] MR W/ Merge Member Role: Primary Care Nurse Name: Keith Stacy MD Position: [facility] DOCTOR OF VETERINARY MEDICINE MD Member Role: Lifetime DOCTOR OF VETERINARY MEDICINE Physician Address: Address: [address] [place] [address] Name: Shabana Soto MD, I Position: [facility] Primary Care Physician Member Role: PCP Address: Address: [address] [place] [address] Name: Robin Wagner Position: [facility] RN Member Role: Primary Care Nurse Name: Justin Francis RN Position: [facility] RN Member Role: Primary Care Nurse Name: Laya Montes RN Position: [facility] RN Member Role: Primary Care Nurse Name: Alice Juarez RN Position: [facility] RN Member Role: Primary Care Nurse Name: Fela Garcia RN Position: [facility] ED RN W/OE and Tasks Member Role: Primary Care Nurse Name: Anay Rouse RN Position: [facility] RN Member Role: Primary Care Nurse Name: Jennifer Weaver RN Position: [facility] RN Member Role: Primary Care Nurse Name: Roxana Young RN Position: [facility] RN Member Role: Primary Care Nurse Name: Megan Grant RN Position: [facility] ED RN W/OE and Tasks Member Role: Primary Care Nurse Name: Eliane Vo RN Position: [facility] RN Member Role: Primary Care Nurse Name: Neda Hernandez RN Position: [facility] PCO RN Member Role: Primary Care Nurse Care Team Related Persons Name: MCKEON MENDEL Address: home [address] [place] [address] Name: GIANA LAMAS Address: home [address] [place] [address] Name: ROSHNI JUÁREZ Address: [place] [address] Name: SINDHU SCHRADER Address: home [address] [place] [address] Name: CRAIG VACA Address: home [address] [place] [address]
--- OUTSIDE RECORDS SUMMARY | 2022-07-04 14:37 | XMS_ITS | Continuity of Care Document ---
Author Name Unknown Organization [facility] Address [address] [place] [address]- Care Team Providers Care Radio Engineering Teacher Name Role Phone Charles LANG, Shabana Joe Primary Care Physician [phone] [place] [facility] [place](s[place] 12/27/21 - 01/26/[address] [address]- Allergies, Adverse Reactions, Alerts Substance Reaction Severity [...] 10/30/21 15:13:00 EDT, Route to Pharmacy Electronically, [facility]/pharmacy #[id number],Partial fill upon patient request if the prescripti... Start Date: 10/30/21 Status: Ordered albuterol CFC free 90 mcg/inh inhalation aerosol 2, puffs, Inhalation, Every 6 hours, PRN, # 1 each, Refills 11, Tot. Refills 11, Maintenance, 10/10/21 9:46:00 EDT, Aerosol, Route to Pharmacy Electronically, [id number], [place], [place] - [phone], 173, c... Start Date: 10/10/21 Stop Date: 10/05/22 Status: Ordered docusate sodium 100 mg oral capsule 1 capsule = 100 mg, By Mouth, 2 times a day, PRN as needed for constipation, # 60 capsule, 0 Refills, Maintenance, 10/30/21 15:12:00 EDT, Capsule, [facility]/pharmacy #[id number], Partial fill upon patient request if the prescription is for a schedule II opioid dr... Start Date: 10/30/21 Status: Ordered Estrace 2 mg oral tablet 1 tablet = 2 mg, By Mouth, Daily, # 30 tablet, 0 Refills, Maintenance, 10/30/21 15:28:00 EDT, Tablet, [facility]/pharmacy #[id number], Partial fill upon [...] 10/30/21 15:12:00 EDT, Route to Pharmacy Electronically, [facility]/pharmacy #[id number], Partial fill upon [...] MRI Safety Implantable Status Assigning Authority Unknown [id number] Unknown 10/04/21 Unknown Unknown Active Unknown Patient Care team information Care Team Personnel Name: Mendy Spicer RN Position: [facility] RN Member Role: Primary Care Nurse Name: Ashley Fields RN Position: [facility] MR W/ Merge Member Role: Primary Care Nurse Name: Keith Stacy MD Position: [facility] CLINICAL APPLICATION SPECIALIST MD Member Role: Lifetime CLINICAL APPLICATION SPECIALIST Physician Address: Address: [address] [place] [address]- Name: Shabana Soto MD, I Position: [facility] Primary Care Physician Member Role: PCP Address: Address: [address] [place] [address]- [place] Name: Justin Francis RN Position: [facility] RN Member Role: Primary Care Nurse Name: Laya Montes RN Position: [facility] ED RN W/OE and Tasks Member Role: Primary Care Nurse Name: Alice Juarez RN Position: [facility] RN Member Role: Primary Care Nurse Name: Fela Garcia RN Position: [facility] ED RN W/OE and Tasks Member Role: Primary Care Nurse Name: Anay Rouse RN Position: [facility] RN Member Role: Primary Care Nurse Name: Jennifer Weaver RN Position: [facility] RN Member Role: Primary Care Nurse Name: Eliane Burnett RN Position: [facility] RN Member Role: Primary Care Nurse Name: Megan Grant RN Position: [facility] ED RN W/OE and Tasks Member Role: Primary Care Nurse Name: Neda Hernandez RN Position: [facility] PCO RN Member Role: Primary Care Nurse Care Team Related Persons Name: MENDEL MCKEON Address: home [address] [place] [address] Name: GIANA LAMAS Address: home [address] [place] [address] Name: ROSHNI JUÁREZ Address: [place] [address] Name: SINDHU SCHRADER Address: home [address] [place] [address] Name: CRAIG VACA Address: home [address] [place] [address]
--- OUTSIDE RECORDS SUMMARY | 2022-07-04 14:37 | XMS_ITS | Continuity of Care Document ---
Author Name Unknown Organization [facility] Address [address] [place] [address]- Care Team Providers Care Statistical Engineer Name Role Phone Charles LANG, Shabana Joe Primary Care Physician [phone] Encounter [facility] Date(s): 01/21/22 - 02/20/[address] [address]- Allergies, Adverse Reactions, Alerts Substance Reaction Severity [...] 10/30/21 15:13:00 EDT, Route to Pharmacy Electronically, [facility]/pharmacy #[id number],Partial fill upon patient request if the prescripti... Start Date: 10/30/21 Status: Ordered albuterol CFC free 90 mcg/inh inhalation aerosol 2, puffs, Inhalation, Every 6 hours, PRN, # 1 each, Refills 11, Tot. Refills 11, Maintenance, 10/10/21 9:46:00 EDT, Aerosol, Route to Pharmacy Electronically, [id number], [place], [place] - [phone], 173, c... Start Date: 10/10/21 Stop Date: [...] MRI Safety Implantable Status Assigning Authority Unknown [id number] Unknown 10/04/21 Unknown Unknown Active Unknown Patient Care team information Care Team Personnel Name: Mendy Spicer RN Position: [facility] RN Member Role: Primary Care Nurse Name: Ashley Fields RN Position: [facility] MR W/ Merge Member Role: Primary Care Nurse Name: Keith Stacy MD Position: [facility] DRAFTER SEISMOGRAPH MD Member Role: Lifetime DRAFTER SEISMOGRAPH Physician Address: Address: [address] [address]- [place] Name: Shabana Soto MD, I Position: [facility] Primary Care Physician Member Role: PCP Address: Address: [address] [place] [address]- Name: Robin Wagner Position: S RN Member Role: Primary Care Nurse Name: Justin Francis RN Position: S RN Member Role: Primary Care Nurse Name: Laya Montes RN Position: S RN Member Role: Primary Care Nurse Name: Alice Juarez RN Position: [facility] RN Member Role: Primary Care Nurse Name: Fela Garcia RN Position: [facility] ED RN W/OE and Tasks Member Role: Primary Care Nurse Name: Anay Rouse RN Position: [facility] RN Member Role: Primary Care Nurse Name: Jennifer Weaver RN Position: [facility] RN Member Role: Primary Care Nurse Name: Megan Grant RN Position: [facility] ED RN W/OE and Tasks Member Role: Primary Care Nurse Name: Eliane Vo RN Position: [facility] RN Member Role: Primary Care Nurse Name: Neda Hernandez RN Position: [facility] PCO RN Member Role: Primary Care Nurse Care Team Related Persons Name: MENDEL MCKEON Address: home [address] [address] Name: GIANA LAMAS Address: home [address] [place] [address] Name: ROSHNI JUÁREZ Address: [place] [address] Name: SINDHU SCHRADER Address: home [address] [place] [address] Name: CRAIG VACA Address: home [address] [place] [address]
--- OUTSIDE RECORDS SUMMARY | 2022-07-04 14:37 | XMS_ITS | Continuity of Care Document ---
Author Name Unknown Organization [facility] Address [address] [place] [address]- Care Team Providers Care Insurance Account Manager Name Role Phone Charles LANG, Shabana Joe Primary Care Physician Encounter [facility] Date(s): 11/06/20 - 12/06/[address] [address]- Allergies, Adverse Reactions, Alerts Substance Reaction Severity [...] 06/15/1912:44:37 EDT, Aerosol, Route to Pharmacy Electronically, [id number], [facility]/pharmacy #[id number], Compound Start Date: 06/15/18 Status: [...] to Pharmacy Electronically, [facility]/pharmacy #[id number], Partial fill upon patient request if the prescription is for a schedule II opioid drug... Start Date: 03/20/20 Status: Ordered fluticasone 50 mcg/inh nasal spray 1 sprays, Nares, Both, 2 times a day, # 16 Gm, 0 Refills, Maintenance, 07/27/19 19:54:00 EDT, [place], [facility]/pharmacy #[id number], 1 sprays Nares, Both 2 times a day, 174, cm, 12/09/18 8:31:00 EDT, Height, 50,kg, 04/10/19 4:52:00 EST, Dry Weight Start Date: 07/27/19 Status: Ordered ibuprofen 600 mg oral tablet 600 mg, 1, tablet, By Mouth, Every 8 hours, # 90 tablet, Refills 2, Tot. Refills 2, Maintenance, 03/05/19 3:09:00 EST, Route to Pharmacy Electronically, [facility]/pharmacy #[id number], 174, cm, 12/09/18 8:31:00 EDT, Height, 52.7, kg, 10/26/18 15:15:00 EDT, Dry We... Start Date: 03/05/19 Status: Ordered loratadine 10 mg oral tablet 10 mg, 1, tablet, By Mouth, Daily, # 30 tablet, Refills 4, Tot. Refills 4, Maintenance, 07/20/20 10:21:00 EDT, Route to Pharmacy Electronically, [facility]/pharmacy #[id number], 174, cm, 07/20/20 9:36:00 EDT, [...] 0 Refills, Maintenance, 08/19/20 21:01:00 EDT, Tablet, [facility]/pharmacy #[id number], Partial fill upon patient request [...] MESH BARD 3X6IN 7.5X15CM - B SUSANNA ([id number]) 1 Bard Davol 29 Unknown ANJELICA:No Information Assigning Authority: FDA
--- OUTSIDE RECORDS SUMMARY | 2022-07-04 14:37 | XMS_ITS | Continuity of Care Document ---
Author Name Unknown Organization [facility] Address [address] [place] [address]- Care Team Providers Care Operations Supervisor 2Nd Shift Name Role Phone Charles LANG, Shabana Joe Primary Care Physician [facility] - 01/27/[address] [address]- Allergies, Adverse Reactions, Alerts Substance Reaction Severity [...] 06/15/1912:44:37 EDT, Aerosol, Route to Pharmacy Electronically, [id number], [facility]/pharmacy #[id number], Compound Start Date: [...] Gm, 0 Refills, Maintenance, 07/27/19 19:54:00 EDT, [place], [facility]/pharmacy #[id number], 1 sprays Nares, [...] 08/19/20 21:01:00 EDT, Tablet, [facility]/pharmacy #[id number], Partial fill upon [...] MESH BARD 3X6IN 7.5X15CM - B SUSANNA ([id number]) 1 [address] 29 Unknown ANJELICA:No Information Assigning Authority: FDA
--- OUTSIDE RECORDS SUMMARY | 2022-07-04 14:37 | XMS_ITS | Continuity of Care Document ---
Author Name Unknown Organization [facility] Address [address] [place] [address]- Care Team Providers Care Obstetrical Nurse Name Role Phone Charles LANG, Shabana Joe Primary Care Physician [facility] Date[facility]s): 06/01/21 - 07/01/[address] [address]- Allergies, Adverse Reactions, Alerts Substance Reaction Severity [...] 06/15/1912:44:37 EDT, Aerosol, Route to Pharmacy Electronically, [id number], [facility]/pharmacy #[id number], Compound Start Date: 06/15/18 [...] 03/20/20 9:28:00 EST, [id number] Partial fill upon patient request if the prescription is for a schedule II opioid drug... Start Date: 03/20/20 Status: Ordered fluticasone 50 mcg/inh nasal spray 1 sprays, Nares, Both, 2 times a day, # 16 Gm, 0 Refills, Maintenance, 07/27/19 19:54:00 EDT, [place], [facility]/pharmacy #[id number], 1 sprays Nares, Both [...] Refills, Maintenance, 08/19/20 21:01:00 EDT, Tablet, [id number], Partial fill upon patient request if the [...] MESH BARD 3X6IN 7.5X15CM - B SUSANNA ([id number]) 1 [address] 29 Unknown ANJELICA:No Information Assigning Authority: FDA
--- OUTSIDE RECORDS SUMMARY | 2022-07-04 14:37 | XMS_ITS | Continuity of Care Document ---
Author Name Unknown Organization [facility] Address [address] [place] [address]- Care Team Providers Care Sewage Disposal Worker Name Role Phone Cherri DELAROSA, Oswald Brandon Primary Care Physicia n [facility] Date(s): 05/23/22 - 06/22/[address] [address]- Allergies, Adverse Reactions, Alerts Substance Reaction Severity [...] 10/30/21 15:13:00 EDT, Route to Pharmacy Electronically, [facility]/pharmacy #[id number],Partial fill upon patient request if the prescripti... Start Date: 10/30/21 Status: Ordered albuterol CFC free 90 mcg/inh inhalation aerosol 2, puffs, Inhalation, Every 6 hours, PRN, # 1 each, Refills 11, Tot. Refills 11, Maintenance, 10/10/21 9:46:00 EDT, Aerosol, Route to Pharmacy Electronically, [id number], [place], [place] - [id number], 173, c... Start Date: 10/10/21 Stop Date: 10/05/22 Status: Ordered dicyclomine 20 mg oral tablet 1 tablet = 20 mg, By Mouth, 3 times a day, For stomach cramping., # 21 tablet, 0 Refills, Maintenance, 05/24/22 11:58:00 EDT, Tablet, [facility]/pharmacy #[id number], Partial fill upon patient request if [...] 05/26/22 8:45:00 EDT, Route to Pharmacy Electronically, [facility]/pharmacy #[id number], Partial fill upon patient request if the prescription is for a schedule II opio... Start Date: 05/26/22 Status: Ordered famotidine 20 mg oral tablet 20 mg, 1, tablet, By Mouth, 2 times a day, # 180 tablet, Refills 0, Tot. Refills 0, Maintenance, 05/26/22 9:05:00 EDT, Route to Pharmacy Electronically, [facility]/pharmacy #1130, Partial fill upon patient request if the prescription is for a schedule II opi... Start Date: 05/26/22 Status: Ordered omeprazole 40 mg oral enteric coated capsule 1 capsule = 40 mg, By Mouth, Daily, For abdominal pain/ stomach acid/ reflux, # 14 capsule, 0 Refills, Maintenance, 05/24/22 11:59:00 EDT, EC Capsule, [facility], Partial fill upon patient request if the prescription is for a schedule II opioi... Start Date: 05/24/22 Stop Date: 06/07/22 Status: Ordered ondansetron 4 mg oral tablet, disintegrating 1 tablet = 4 mg, By Mouth, Every 8 hours, PRN as needed for nausea/vomiting, # 12 tablet, 0 Refills, Maintenance, 05/26/22 8:45:00 EDT, DIS Tablet, [facility]/pharmacy #[id number], Partial fill upon patient request if the prescription is for a schedule II opioid d... Start Date: 05/26/22 Status: Ordered ondansetron 4 mg oral tablet, disintegrating 1 tablet = 4 mg, By Mouth, Every 8 hours, PRN as needed for nausea/vomiting, # 14 tablet, 0 Refills, Maintenance, 05/26/22 9:05:00 EDT, DIS Tablet, [facility]/pharmacy #1130, Partial fill upon patient request if [...] MRI Safety Implantable Status Assigning Authority Unknown [id number] Unknown 10/04/21 Unknown Unknown Active Unknown Patient Care team information Care Team Personnel Name: Mendy Spicer RN Position: [facility] RN Member Role: Primary Care Nurse Name: Shiela Mays RN Position: [facility] RN Member Role: Primary Care Nurse Name: Ashley Fields RN Position: [facility] MR W/ Merge Member Role: Primary Care Nurse Name: Keith Stacy MD Position: [facility] METAL ANNEALER MD Member Role: Lifetime METAL ANNEALER Physician Address: Address: [address] [place] [address] Name: Robin Wagner Position: [facility] RN Member Role: Primary Care Nurse Name: Justin Francis RN Position: [facility] RN Member Role: Primary Care Nurse Name: Laya Montes RN Position: [facility] RN Member Role: Primary Care Nurse Name: Alice Juarez RN Position: [facility] RN Member Role: Primary Care Nurse Name: Fela Garcia RN Position: [facility] ED RN W/OE and Tasks Member Role: Primary Care Nurse Name: Anay Rouse RN Position: [facility] RN Member Role: Primary Care Nurse Name: Jennifer Weaver RN Position: [facility] RN Member Role: Primary Care Nurse Name: Roxana Young RN Position: [facility] RN Member Role: Primary Care Nurse Name: Oswald Harley NP Position: [facility] PCO Associate Professional Member Role: PCP Address: Address: [address] [place] [address]- Name: Megan Grant RN Position: [facility] ED RN W/OE and Tasks Member Role: Primary Care Nurse Name: Eliane Vo RN Position: [facility] RN Member Role: Primary Care Nurse Name: Neda Hernandez RN Position: [facility] PCO RN Member Role: Primary Care Nurse Care Team Related Persons Name: MENDEL MCKEON Address: home [address] [place] [address] Name: GIANA LAMAS Address: home [address] [place] [address] Name: ROSHNI JUÁREZ Address: [place] [address] Name: SINDHU SCHRADER Address: home [address] [place] [address] Name: CRAIG VACA Address: home [address] [place] [address]
--- OUTSIDE RECORDS SUMMARY | 2022-07-04 14:37 | XMS_ITS | Continuity of Care Document ---
Author Name Unknown Organization [facility] Address [address] [place] [address]- Care Team Providers Care Alteration Tailor Apprentice Name Role Phone Charles LANG, Shabana Joe Primary Care Physician Encounter [facility] [id number] Date(s): 11/29/20 - 12/29/[address] [address] Attending Physician: Srinivasa Mendieta Admitting Physician: Srinivasa [...] 06/15/1912:44:37 EDT, Aerosol, Route to Pharmacy Electronically, [id number], [facility]/pharmacy #[id number], Compound Start Date: 06/15/18 Status: [...] 9:28:00 EST, Route to Pharmacy Electronically, [facility]/pharmacy #[id number], Partial fill upon patient request if the prescription is for a schedule II opioid drug... Start Date: 03/20/20 Status: Ordered fluticasone 50 mcg/inh nasal spray 1 sprays, Nares, Both, 2 times a day, # 16 Gm, 0 Refills, Maintenance, 07/27/19 19:54:00 EDT, [place], [facility]/pharmacy #[id number], 1 sprays Nares, Both 2 times a day, 174, cm, 12/09/18 8:31:00 EDT, Height, 50,kg, 04/10/19 4:52:00 EST, Dry Weight Start Date: 07/27/19 Status: Ordered ibuprofen 600 mg oral tablet 600 mg, 1, tablet, By Mouth, Every 8 hours, # 90 tablet, Refills 2, Tot. Refills 2, Maintenance, 03/05/19 3:09:00 EST, Route to Pharmacy Electronically, [facility]/pharmacy #[id number], 174, cm, 12/09/18 8:31:00 EDT, Height, 52.7, kg, 10/26/18 15:15:00 EDT, Dry We... Start Date: 03/05/19 Status: Ordered loratadine 10 mg oral tablet 10 mg, 1, tablet, By Mouth, Daily, # 30 tablet, Refills 4, Tot. Refills 4, Maintenance, 07/20/20 10:21:00 EDT, Route to Pharmacy Electronically, [facility]/pharmacy #[id number], 174, cm, 07/20/20 9:36:00 EDT, [...] 0 Refills, Maintenance, 08/19/20 21:01:00 EDT, Tablet, [facility]/pharmacy #[id number], Partial fill upon patient request [...] MESH BARD 3X6IN 7.5X15CM - B SUSANNA ([id number]) 1 [address] 29 Unknown ANJELICA:No Information Assigning Authority: FDA
--- OUTSIDE RECORDS SUMMARY | 2022-07-04 14:37 | XMS_ITS | Continuity of Care Document ---
Author Name Unknown Organization [facility] ter Address [address] [place] [address]- Care Team Providers Care Vacuum Furnace Operator Name Role Phone Charles LANG, Shabana Joe Primary Care Physician [phone] [facility]): 09/07/20 - 10/07/[address] [address] Allergies, Adverse Reactions, Alerts Substance Reaction Severity [...] 06/15/1912:44:37 EDT, Aerosol, Route to Pharmacy Electronically, [id number], [facility]/pharmacy #[id number], Compound Start Date: 06/15/18 [...] 03/20/20 9:28:00 EST, [id number] Partial fill upon patient request if the prescription is for a schedule II opioid drug... Start Date: 03/20/20 Status: Ordered fluticasone 50 mcg/inh nasal spray 1 sprays, Nares, Both, 2 times a day, # 16 Gm, 0 Refills, Maintenance, 07/27/19 19:54:00 EDT, [place], [facility]/pharmacy #[id number], 1 sprays Nares, Both 2 times a day, 174, cm, 12/09/18 8:31:00 EDT, Height, 50,kg, 04/10/19 4:52:00 EST, Dry Weight Start Date: 07/27/19 Status: Ordered ibuprofen 600 mg oral tablet 600 mg, 1, tablet, By Mouth, Every 8 hours, # 90 tablet, Refills 2, Tot. Refills 2, Maintenance, 03/05/19 3:09:00 EST, Route to Pharmacy Electronically, [facility]/pharmacy #[id number], 174, cm, 12/09/18 8:31:00 EDT, Height, 52.7, kg, 10/26/18 15:15:00 EDT, Dry We... Start Date: 03/05/19 Status: Ordered loratadine 10 mg oral tablet 10 mg, 1, tablet, By Mouth, Daily, # 30 tablet, Refills 4, Tot. Refills 4, Maintenance, 07/20/20 10:21:00 EDT, Route to Pharmacy Electronically, [facility]/pharmacy #[id number], 174, cm, 07/20/20 9:36:00 [...] 0 Refills, Maintenance, 08/19/20 21:01:00 EDT, Tablet, [facility]/pharmacy #[id number], Partial fill upon patient [...] MESH BARD 3X6IN 7.5X15CM - B SUSANNA ([id number]) [address] 29 Unknown ANJELICA:No Information Assigning Authority: FDA
--- OUTSIDE RECORDS SUMMARY | 2022-07-04 14:37 | XMS_ITS | Continuity of Care Document ---
Author Name Unknown Organization [facility] Address [address] [place] [address]- Care Team Providers Care Food Service Name Role Phone Charles LANG, Shabana Joe Primary Care Physician [phone] [facility] Date[facility]s): 09/17/21 - 10/17/[address] [address]- Allergies, Adverse Reactions, Alerts Substance Reaction Severity [...] 9:46:00 EDT, Aerosol, Route to Pharmacy Electronically, [id number], [facility] [place] [place] - [phone], 173, c... Start Date: 10/10/21 Stop Date: [...] MESH BARD 3X6IN 7.5X15CM - B SUSANNA ([id number]) 1 [address] 29 Unknown ANJELICA:No Information Assigning Authority: FDA
--- OUTSIDE RECORDS SUMMARY | 2022-07-04 14:37 | XMS_ITS | Continuity of Care Document ---
Author Name Unknown Organization [facility] ter Address [address] [place] [address]- Care Team Providers Care Manager Community Name Role Phone Shabana Soto MD, I Primary Care Physician [phone] Encounter [facility] Date(s): 06/17/21 - 06/17/[address] [address]- Encounter Diagnosis Chest pain(Final) - 06/17/21 Discharge Disposition: A-D/C Home Attending Physician: Rachel Kidd MD Admitting Physician: Rachel Kidd MD Referring Physician: Not on Staff, Referring [...] 06/15/1912:44:37 EDT, Aerosol, Route to Pharmacy Electronically, [id number], [facility]/pharmacy #[id number], Compound Start Date: 06/15/18 [...] EST, Route to Pharmacy Electronically, [facility]/pharmacy #[id number], Partial fill upon patient request if the prescription is for a schedule II opioid drug... Start Date: 03/20/20 Status: Ordered fluticasone 50 mcg/inh nasal spray 1 sprays, Nares, Both, 2 times a day, # 16 Gm, 0 Refills, Maintenance, 07/27/19 19:54:00 EDT, [place], [facility]/pharmacy #[id number], 1 sprays Nares, Both 2 times a day, 174, cm, 12/09/18 8:31:00 EDT, Height, 50,kg, 04/10/19 4:52:00 EST, Dry Weight Start Date: 07/27/19 Status: Ordered ibuprofen 600 mg oral tablet 600 mg, 1, tablet, By Mouth, Every 8 hours, # 90 tablet, Refills 2, Tot. Refills 2, Maintenance, 03/05/19 3:09:00 EST, Route to Pharmacy Electronically, [facility]/pharmacy #[id number], 174, cm, 12/09/18 8:31:00 EDT, Height, 52.7, kg, 10/26/18 15:15:00 EDT, Dry We... Start Date: 03/05/19 Status: Ordered loratadine 10 mg oral tablet 10 mg, 1, tablet, By Mouth, Daily, # 30 tablet, Refills 4, Tot. Refills 4, Maintenance, 07/20/20 10:21:00 EDT, Route to Pharmacy Electronically, [facility]/pharmacy #[id number], 174, cm, 07/20/20 9:36:00 [...] 0 Refills, Maintenance, 08/19/20 21:01:00 EDT, Tablet, [facility]/pharmacy #[id number], Partial fill upon patient request if the [...] Exam Date Time Procedure Performing Provider Status 06/17/21 1:53 PM Chest 2 Views Frontal and Lat Yolanda Hernadez; Auth (Verified) Notes: (Chest 2 Views Frontal and Lat) Reason For Exam: Chest Pain;Other: RESULT: Chest 2 Views Frontal and Lat Chest 2 Views Frontal and Lat HX OF PRESENT ILLNESS: pt states left sided chest pain nonradiaiting since yesterday 7 10 pt deniesany fever or chills. no SOB no cough pt states hx anemia; Reason: Other:; Chest Pain; Clinical Question(s): Other: / Other: COMPARISON: 10/26/2020 FINDINGS: LINES AND TUBES: None. LUNGS AND PLEURA: Clear lungs. Normal pulmonary vascularity. No pleural effusion. No pneumothorax. HEART, MEDIASTINUM AND TALI: Heart is normal in size. Normal mediastinal and hilar contour. BONES AND SOFT TISSUES: No acute abnormality. IMPRESSION: No evidence of acute abnormality. WSN: [id number] Ordering Physician: Brie Cowan Dictated By: Bo Tomlin MD Dictated Date/Time: 06/17/21 1:56 pm Reviewed By: Bo Tomlin MD Signed By: Bo Tomlin MD Signed Date/Time: 06/17/21 1:56 pm Transcribed By: KARIE Transcribed Date/Time: 06/17/21 1:55 pm Vital Signs Most recent to oldest [Reference Range]: 1 2 3 Height 158 cm (06/17/21 12:28 PM) Weight 48.9 kg (06/17/21 12:28 PM) Oxygen Saturation [94-100 %] 98 % (06/17/21 3:27 PM) 97 % (06/17/21 12:28 PM) 100 % (06/17/21 12:26 PM) Pulse Rate [55-90 bpm] 72 bpm (06/17/21 3:27 PM) 79 bpm (06/17/21 12:28 PM) 115 bpm *H* (06/17/21 12:26 PM) Blood Pressure [90-138/55-84 mm Hg] 123/78mm Hg (06/17/21 3:27 PM) 127/97mm Hg (06/17/21 12:28 PM) Respiratory Rate [16-30 br/min] 18 br/min (06/17/21 3:27 PM) 18 br/min (06/17/21 12:28 PM) Temperature [96.8-100.4 DegF] 98.5 DegF (06/17/21 12:28 PM) Mode of Delivery (Oxygen) Room air (06/17/21 3:27 PM) Room air (06/17/21 12:28 PM) Room air (06/17/21 12:26 PM) Blood pressure sites Arm, left (06/17/21 3:27 PM) Arm, left (06/17/21 12:28 PM) Temperature Route Oral (06/17/21 12:28 PM) Weight Obtained Via Standing scale (06/17/21 12:28 PM) Social History Social History Type Response Smoking Status 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
--- OUTSIDE RECORDS SUMMARY | 2022-07-04 14:37 | XMS_ITS | Continuity of Care Document ---
Author Name Unknown Organization [facility] Address [address] [place] [address]- Care Team Providers Care Director Of Advertising Sales Name Role Phone Charles LANG, Shabana Joe Primary Care Physician [phone] [facility]counter [facility] Date(s): 09/14/21 - 10/14/[address] [address]- Allergies, Adverse Reactions, Alerts Substance Reaction Severity [...] 9:46:00 EDT, Aerosol, Route to Pharmacy Electronically, [id number], [facility] [place] [place] - [phone], 173, c... Start Date: 10/10/21 Stop Date: [...] MESH BARD 3X6IN 7.5X15CM - B SUSANNA ([id number]) 1 [address] 29 Unknown ANJELICA:No Information Assigning Authority: FDA
--- OUTSIDE RECORDS SUMMARY | 2022-07-04 14:37 | XMS_ITS | Continuity of Care Document ---
Author Name Unknown Organization [facility] Address [address] [place] [address]- Care Team Providers Care Disposal Operator Name Role Phone Charles LANG, Shabana Joe Primary Care Physician [phone] [facility]counter [facility] Date(s): 11/01/21 - 12/01/[address] [address]- Allergies, Adverse Reactions, Alerts Substance Reaction Severity [...] 10/30/21 15:13:00 EDT, Route to Pharmacy Electronically, [facility]/pharmacy #[id number],Partial fill upon patient request if the prescripti... Start Date: 10/30/21 Status: Ordered albuterol CFC free 90 mcg/inh inhalation aerosol 2, puffs, Inhalation, Every 6 hours, PRN, # 1 each, Refills 11, Tot. Refills 11, Maintenance, 10/10/21 9:46:00 EDT, Aerosol, Route to Pharmacy Electronically, [id number], [place], [place] - [id number], 173, c... Start Date: 10/10/21 Stop Date: 10/05/22 Status: Ordered docusate sodium 100 mg oral capsule 1 capsule = 100 mg, By Mouth, 2 times a day, PRN as needed for constipation, # 60 capsule, 0 Refills, Maintenance, 10/30/21 15:12:00 EDT, Capsule, [facility]/pharmacy #[id number], Partial fill upon patient request if the prescription is for a schedule II opioid dr... Start Date: 10/30/21 Status: Ordered Estrace 2 mg oral tablet 1 tablet = 2 mg, By Mouth, Daily, # 30 tablet, 0 Refills, Maintenance, 10/30/21 15:28:00 EDT, Tablet, [facility]/pharmacy #[id number], Partial fill upon patient request if the prescription is for a schedule II opioid drug., 173, cm, 10/27/21 23:24:00 EDT, Height,... Start Date: 10/30/21 Status: Ordered ibuprofen 600 mg oral tablet 600 mg, 1, tablet, By Mouth, 4 times a day, PRN, # 40 tablet, Refills 0, Tot. Refills 0, Maintenance, for pain, 10/30/21 15:12:00 EDT, Route to Pharmacy Electronically, [facility]/pharmacy #[id number], Partial fill upon patient request if the prescription is for a... Start Date: 10/30/21 Status: Ordered oxyCODONE 5 mg oral capsule 1 capsule = 5 mg, By Mouth, Every 6 hours, PRN as needed for pain, # 10 capsule, 0 Refills, Maintenance, 11/07/21 18:57:00 EDT, Capsule, [facility]/pharmacy #[id number], Partial fill upon patient [...] 10/30/21 15:13:00 EDT, Route to Pharmacy Electronically, [facility]/pharmacy #[id number], Partial fill upon patient [...] MRI Safety Implantable Status Assigning Authority Unknown [id number] Unknown 10/04/21 Unknown Unknown Active Unknown Care Team Personnel Name: Shabana Soto MD, I Address: [address] [place] [address], [place] [address]-
--- OUTSIDE RECORDS SUMMARY | 2022-07-04 14:37 | XMS_ITS | Continuity of Care Document ---
Author Name Unknown Organization [facility] Address [address] [place] [address]- Care Team Providers Care Career Technical Supervisor Name Role Phone Charles LANG, Shabana Joe Primary Care Physician [facility] Date(s): 01/15/21 - 02/14/[address] [address]- Allergies, Adverse Reactions, Alerts Substance Reaction Severity [...] 06/15/1912:44:37 EDT, Aerosol, Route to Pharmacy Electronically, [id number], [facility]/pharmacy #[id number], Compound Start Date: 06/15/18 [...] 03/20/20 9:28:00 EST, [id number], Partial fill upon patient request if the prescription is for a schedule II opioid drug... Start Date: 03/20/20 Status: Ordered fluticasone 50 mcg/inh nasal spray 1 sprays, Nares, Both, 2 times a day, # 16 Gm, 0 Refills, Maintenance, 07/27/19 19:54:00 EDT, [place], [facility]/pharmacy #[id number], 1 sprays Nares, Both 2 times a day, 174, cm, 12/09/18 8:31:00 EDT, Height, 50,kg, 04/10/19 4:52:00 EST, Dry Weight Start Date: 07/27/19 Status: Ordered ibuprofen 600 mg oral tablet 600 mg, 1, tablet, By Mouth, Every 8 hours, # 90 tablet, Refills 2, Tot. Refills 2, Maintenance, 03/05/19 3:09:00 EST, Route to Pharmacy Electronically, [facility]/pharmacy #[id number], 174, cm, 12/09/18 8:31:00 EDT, Height, 52.7, kg, 10/26/18 15:15:00 EDT, Dry We... Start Date: 03/05/19 Status: Ordered loratadine 10 mg oral tablet 10 mg, 1, tablet, By Mouth, Daily, # 30 tablet, Refills 4, Tot. Refills 4, Maintenance, 07/20/20 10:21:00 EDT, Route to Pharmacy Electronically, [facility]/pharmacy #[id number], 174, cm, 07/20/20 9:36:00 [...] 0 Refills, Maintenance, 08/19/20 21:01:00 EDT, Tablet, [facility]/pharmacy #[id number], Partial fill upon patient [...] MESH BARD 3X6IN 7.5X15CM - B SUSANNA ([id number]) 1 [address] 29 Unknown ANJELICA:No Information Assigning Authority: FDA
--- OUTSIDE RECORDS SUMMARY | 2022-07-04 14:37 | XMS_ITS | Continuity of Care Document ---
Author Name Unknown Organization [facility] Address [address] [place] [address]- Care Team Providers Care Social Service Manager Name Role Phone Charles LANG, Shabana Joe Primary Care Physician [phone] [facility]counter [facility] Date(s): 01/05/21 - 02/04/[address] [address]- Allergies, Adverse Reactions, Alerts Substance Reaction Severity [...] 06/15/1912:44:37 EDT, Aerosol, Route to Pharmacy Electronically, [id number], [facility]/pharmacy #[id number], Compound Start Date: 06/15/18 Status: [...] 03/20/20 9:28:00 EST, Route to Pharmacy Electronically, [facility]/pharmacy #[id number], Partial fill upon patient request if the prescription is for a schedule II opioid drug... Start Date: 03/20/20 Status: Ordered fluticasone 50 mcg/inh nasal spray 1 sprays, Nares, Both, 2 times a day, # 16 Gm, 0 Refills, Maintenance, 07/27/19 19:54:00 EDT, [place], [facility]/pharmacy #[id number], 1 sprays Nares, Both 2 times a day, 174, cm, 12/09/18 8:31:00 EDT, Height, 50,kg, 04/10/19 4:52:00 EST, Dry Weight Start Date: 07/27/19 Status: Ordered ibuprofen 600 mg oral tablet 600 mg, 1, tablet, By Mouth, Every 8 hours, # 90 tablet, Refills 2, Tot. Refills 2, Maintenance, 03/05/19 3:09:00 EST, Route to Pharmacy Electronically, [facility]/pharmacy #[id number], 174, cm, 12/09/18 8:31:00 EDT, Height, 52.7, kg, 10/26/18 15:15:00 EDT, Dry We... Start Date: 03/05/19 Status: Ordered loratadine 10 mg oral tablet 10 mg, 1, tablet, By Mouth, Daily, # 30 tablet, Refills 4, Tot. Refills 4, Maintenance, 07/20/20 10:21:00 EDT, Route to Pharmacy Electronically, [facility]/pharmacy #[id number], 174, cm, 07/20/20 9:36:00 EDT, [...] 0 Refills, Maintenance, 08/19/20 21:01:00 EDT, Tablet, [facility]/pharmacy [...] MESH BARD 3X6IN 7.5X15CM - B SUSANNA ([id number]) 1 Bard Davol 29 Unknown ANJELICA:No Information Assigning Authority: FDA
--- OUTSIDE RECORDS SUMMARY | 2022-07-04 14:37 | XMS_ITS | Continuity of Care Document ---
Author Name Unknown Organization [facility] Address [address] [place] [address]- Care Team Providers Care Customs Brokerage Manager Name Role Phone Chalres LANG, Shabana Joe Primary Care Physician [facility] Date(s): 03/15/20 - 04/14/[address] [address]- Allergies, Adverse Reactions, Alerts Substance Reaction Severity [...] 06/15/1912:44:37 EDT, Aerosol, Route to Pharmacy Electronically, [id number], [facility]/pharmacy #[id number], Compound Start Date: 06/15/18 [...] 9:28:00 EST, [id number] Partial fill upon patient request if the prescription is for a schedule II opioid drug... Start Date: 03/20/20 Status: Ordered fluticasone 50 mcg/inh nasal spray 1 sprays, Nares, Both, 2 times a day, # 16 Gm, 0 Refills, Maintenance, 07/27/19 19:54:00 EDT, [place], [facility]/pharmacy #[id number], 1 sprays Nares, Both 2 times a day, 174, cm, 12/09/18 8:31:00 EDT, Height, 50,kg, 04/10/19 4:52:00 EST, Dry Weight Start Date: 07/27/19 Status: Ordered ibuprofen 600 mg oral tablet 600 mg, 1, tablet, By Mouth, Every 8 hours, # 90 tablet, Refills 2, Tot. Refills 2, Maintenance, 03/05/19 3:09:00 EST, Route to Pharmacy Electronically, [facility]/pharmacy #[id number], 174, cm, 12/09/18 8:31:00 EDT, Height, 52.7, kg, 10/26/18 15:15:00 EDT, Dry We... Start Date: 03/05/19 Status: Ordered loratadine 10 mg oral tablet 10 mg, 1, tablet, By Mouth, Daily, # 30 tablet, Refills 0, Tot. Refills 0, Maintenance, 07/27/19 19:56:00 EDT, Route to Pharmacy Electronically, [facility]/pharmacy #[id number], 174, cm, 12/09/18 8:31:00 EDT, Height, 50, kg, 04/10/19 4:52:00 EST, Dry Weight Start Date: 07/27/19 Status: Ordered nicotine 21 mg/24 hr transdermal film, extended release 1 patch, Topically, Daily, for 30 days, # 30 patch, 3 Refills, Acute 05/04/20 12:12:00 EST, 01/05/20 12:12:00 EDT, Patch, [facility]/pharmacy #[id number], 1 patch Topically Daily,x30 [...] tablet, Refills 0, Tot. Refills 0, Maintenance, 04/05/20 9:18... Start Date: 04/05/20 Status: Ordered Problem List Condition Effective Dates [...] MESH BARD 3X6IN 7.5X15CM - B SUSANNA ([id number]) 1 Bard Avalos 29 Unknown ANJELICA:No Information Assigning Authority: FDA
--- OUTSIDE RECORDS SUMMARY | 2022-07-04 14:37 | XMS_ITS | Continuity of Care Document ---
Author Name Unknown Organization [facility] ter Address [address] [place] [address]- Care Team Providers Care Dance Historian Name Role Phone Shabana Soto MD, I Primary Care Physician Encounter [facility] Date(s): 04/29/22 - 04/29/[address] [address]- Discharge Disposition: A-D/C Walkout Attending Physician: Not [...] 10/30/21 15:13:00 EDT, Route to Pharmacy Electronically, [facility]/pharmacy #[id number],Partial fill upon patient request if the prescripti... Start Date: 10/30/21 Status: Ordered albuterol CFC free 90 mcg/inh inhalation aerosol 2, puffs, Inhalation, Every 6 hours, PRN, # 1 each, Refills 11, Tot. Refills 11, Maintenance, 10/10/21 9:46:00 EDT, Aerosol, Route to Pharmacy Electronically, [id number], [place], [place] - [id number], 173, c... Start Date: 10/10/21 Stop Date: [...] 05/26/22 15:21:00 EDT, 04/28/22 15:18:00 EST, Patch, [facility] 3, Partial fill upon patient request if the prescription is for a schedule II opioid drug., 1 patch Topically Daily, 17... Start Date: 04/28/22 Stop Date: 05/26/22 Status: Ordered predniSONE 5 mg oral tablet 1 tablet = 5 mg, By Mouth, Daily, # 5 tablet, 0 Refills, Maintenance, 04/29/22 13:40:00 EST, Tablet, [facility]/pharmacy #1130, Partial fill upon patient request if [...] Active Seizures Confirmed Active Underweight Confirmed Active Vital Signs Most recent to oldest [Reference Range]: 1 2 Weight 50.5 kg (04/29/22 2:27 AM) Oxygen Saturation [94-100 %] 99 % (04/29/22 2:27 AM) 100 % (04/29/22 2:23 AM) Pulse Rate [55-90 bpm] 138 bpm *H* (04/29/22 2:27 AM) Blood Pressure [90-138/55-84 mm Hg] 107/ 74mm Hg (04/29/22 2:27 AM) Respiratory Rate [16-30 br/min] 18 br/mi n (04/29/22 2:27 AM) Temperature [96.8-100.4 DegF] 97.5 DegF (04/29/22 2:27 AM) Mode of Delivery (Oxygen) Room air (04/29/22 2:27 AM) Blood pressure sites Arm, left (04/29/22 2:27 AM) Temperature Route Oral (04/29/22 2:27 AM) Weight Obtained Via Patient/family state d (04/29/22 2:27 AM) Social History Social History Type Response [...] MRI Safety Implantable Status Assigning Authority Unknown [id number] Unknown 10/04/21 Unknown Unknown Active Unknown EKG study * Event Display: EKG Authored Date: * Event Display: EKG Authored Date: Patient Care team information Care Team Personnel Name: Mendy Spicer RN Position: [facility] RN Member Role: Primary Care Nurse Name: Shiela Mays RN Position: [facility] RN Member Role: Primary Care Nurse Name: Ashley Fields RN Position: [facility] MR W/ Merge Member Role: Primary Care Nurse Name: Keith Stacy MD Position: [facility] RESEARCH AND DEVELOPMENT TECHNICIAN MD Member Role: Lifetime RESEARCH AND DEVELOPMENT TECHNICIAN Physician Address: Address: [address] [place] [address]- Name: Shabana Soto MD, I Position: [facility] Primary Care Physician Member Role: PCP Address: Address: [address] [place] [address]- Name: Robin Wagner Position: [facility] RN Member Role: Primary Care Nurse Name: Justin Francis RN Position: [facility] RN Member Role: Primary Care Nurse Name: Laya Montes RN Position: [facility] RN Member Role: Primary Care Nurse Name: Alice Juarez RN Position: [facility] RN Member Role: Primary Care Nurse Name: Fela Garcia RN Position: [facility] ED RN W/OE and Tasks Member Role: Primary Care Nurse Name: Anay Rouse RN Position: [facility] RN Member Role: Primary Care Nurse Name: Jennifer Weaver RN Position: [facility] RN Member Role: Primary Care Nurse Name: Roxana Young RN Position: [facility] RN Member Role: Primary Care Nurse Name: Megan Grant RN Position: [facility] ED RN W/OE and Tasks Member Role: Primary Care Nurse Name: Eliane Vo RN Position: [facility] RN Member Role: Primary Care Nurse Name: Neda Hernandez RN Position: [facility] PCO RN Member Role: Primary Care Nurse Care Team Related Persons Name: MENDEL MCKEON Address: home [address] [place] [address] Name: GIANA LAMAS Address: home [address] [place] [address] Name: ROSHNI JUÁREZ Address: [place] [address] Name: SINDHU SCHRADER Address: home [address] [place] [address] Name: CRAIG VACA Address: home [address] [place] [address]
--- OUTSIDE RECORDS SUMMARY | 2022-07-04 14:37 | XMS_ITS | Continuity of Care Document ---
Author Name Unknown Organization [facility] Address [address] [place] [address]- Care Team Providers Care Parts Delivery Driver Name Role Phone Charles LANG, Shabana Joe Primary Care Physician [facility]counter [facility] Date(s): 08/18/20 - 09/17/[address] [address]- Allergies, Adverse Reactions, Alerts Substance Reaction Severity [...] 06/15/1912:44:37 EDT, Aerosol, Route to Pharmacy Electronically, [id number], [facility]/pharmacy #[id number], Compound Start Date: [...] 03/20/20 9:28:00 EST, Route to Pharmacy Electronically, [facility]/pharmacy #[id number], Partial fill upon patient request if the prescription is for a schedule II opioid drug... Start Date: 03/20/20 Status: Ordered fluticasone 50 mcg/inh nasal spray 1 sprays, Nares, Both, 2 times a day, # 16 Gm, 0 Refills, Maintenance, 07/27/19 19:54:00 EDT, [place], [facility]/pharmacy #[id number], 1 sprays Nares, [...] 10:21:00 EDT, Route to Pharmacy Electronically, [facility]/pharmacy #[id number], 174, cm, 07/20/20 9:36:00 EDT, [...] Refills, Maintenance, 08/19/20 21:01:00 EDT, Tablet, [facility]/pharmacy #[id number], Partial fill upon patient request [...] MESH BARD 3X6IN 7.5X15CM - B SUSANNA ([id number]) 1 Bard Davol 29 Unknown ANJELICA:No Information Assigning Authority: FDA
--- OUTSIDE RECORDS SUMMARY | 2022-07-04 14:37 | XMS_ITS | Continuity of Care Document ---
Author Name Unknown Organization [facility] Address [address] [place] [address]- Care Team Providers Care Chocolatier Name Role Phone Shabana Soto MD, I Primary Care Physician [phone] Encounter [facility] R [id number] Date(s): 01/17/22 - 03/13/[address] [address]- Attending Physician: Shabana Soto MD, I Admitting Physician: Shabana Soto MD, I Allergies, Adverse [...] to Pharmacy Electronically, [facility]/pharmacy #[id number],Partial fill upon patient request if the prescripti... Start Date: 10/30/21 Status: Ordered albuterol CFC free 90 mcg/inh inhalation aerosol 2, puffs, Inhalation, Every 6 hours, PRN, # 1 each, Refills 11, Tot. Refills 11, Maintenance, 10/10/21 9:46:00 EDT, Aerosol, Route to Pharmacy Electronically, [id number], [place], [place] - [phone], 173, c... Start Date: 10/10/21 Stop Date: [...] MRI Safety Implantable Status Assigning Authority Unknown [id number] Unknown 10/04/21 Unknown Unknown Active Unknown Patient Care team information Care Team Personnel Name: Mendy Spicer RN Position: [facility] RN Member Role: Primary Care Nurse Name: Ashley Fields RN Position: [facility] MR W/ Merge Member Role: Primary Care Nurse Name: Keith Stacy MD Position: [facility] CARD CHECKER MD Member Role: Lifetime CARD CHECKER Physician Address: Address: [address] [place] [address]- Name: Shabana Soto MD, I Position: [facility] Primary Care Physician Member Role: PCP Address: Address: [address] [place] [address]- Name: Robin Wagner Position: [facility] RN Member Role: Primary Care Nurse Name: Justin Francis RN Position: [facility] RN Member Role: Primary Care Nurse Name: Laya Montes RN Position: [facility] ED RN W/OE and Tasks Member Role: Primary Care Nurse Name: Alice Juarez RN Position: [facility] RN Member Role: Primary Care Nurse Name: Fela Garcia RN Position: [facility] ED RN W/OE and Tasks Member Role: Primary Care Nurse Name: Anay Rouse RN Position: [facility] RN Member Role: Primary Care Nurse Name: Jennifer Weaver RN Position: [facility] RN Member Role: Primary Care Nurse Name: Megan Grant RN Position: [facility] ED RN W/OE and Tasks Member Role: Primary Care Nurse Name: Eliane Vo RN Position: [facility] RN Member Role: Primary Care Nurse Name: Neda Hernandez RN Position: [facility] PCO RN Member Role: Primary Care Nurse Care Team Related Persons Name: MENDEL MCKEON Address: home [address] [place] [address] Name: GIANA LAMAS Address: home [address] [place] [address] Name: ROSHNI JUÁREZ Address: [place] [address] Name: SINDHU SCHRADER Address: home [address] [place] [address] Name: CRAIG VACA Address: home [address] [place] [address]
--- OUTSIDE RECORDS SUMMARY | 2022-07-04 14:37 | XMS_ITS | Continuity of Care Document ---
Author Name Unknown Organization [facility] ter Address [address] [place] [address]- Care Team Providers Care School Crossing Guard Name Role Phone Charles LANG, Shabana Joe Primary Care Physician Encounter [facility] Date(s): 07/06/19 - 07/06/[address] [address]- [facility] Discharge Disposition: A-D/C Home Attending Physician: Demetris Lake MD Admitting Physician: Demetris Lake MD Referring Physician: Not on Staff, Referring [...] Date Status Refusal Reason pneumococcal 23-valent vaccine 9/27/14 Not Given Patient Refuses pneumococcal 23-valent vaccine 03/10/13 Not Given Patient Refuses 1Admin Note: VIS GIVEN Medications albuterol CFC free 90 mcg/inh inhalation aerosol 1, puffs, Inhalation, Every 6 hours, PRN, # 18 Gm, Refills 0, Tot. Refills 0, Maintenance, 06/15/1912:44:37 EDT, Aerosol, Route to Pharmacy Electronically, [id number], [facility]/pharmacy #[id number], Compound Start Date: 06/15/18 Status: Ordered [...] 3:09:00 EST, Route to Pharmacy Electronically, [facility]/pharmacy #[id number], 174, cm, 12/09/18 8:31:00 EDT, Height, [...] 3 Oxygen Saturation [94-100 %] 100 % (07/06/19 5:32 AM) 100 % (07/06/19 1:17 AM) 100 % (07/06/19 12:13 AM) Pulse Rate [55-90 bpm] 73 bpm (07/06/19 5:32 AM) 68 bpm (07/06/19 1:17 AM) 67 bpm (07/06/19 12:13 AM) Blood Pressure [90-138/55-84 mm Hg] 112/59mm Hg (07/06/19 5:32 AM) 105/69mm Hg (07/06/19 1:17 AM) 113/67mm Hg (07/06/19 12:16 AM) Respiratory Rate [16-30 br/min] 17 br/min (07/06/19 5:32 AM) 18 br/min (07/06/19 1:17 AM) 20 br/min (07/06/19 12:13 AM) Temperature [96.8-100.4 DegF] 98.7 DegF (07/06/19 5:32 AM) 97.9 DegF (07/06/19 1:17 AM) 97.9 DegF (07/06/19 12:16 AM) Mode of Delivery (Oxygen) Room air (07/06/19 5:32 AM) Room air (07/06/19 1:17 AM) Room air (07/06/19 12:13 AM) Blood pressure sites Arm, left (07/06/19 5:32 AM) Arm, left (07/06/19 1:17 AM) Arm, right (07/06/19 12:16 AM) Temperature Route Oral (07/06/19 5:32 AM) Oral (07/06/19 1:17 AM) Oral (07/06/19 12:16 AM) Social History Social History Type Response Smoking Status Current every day sm oker; Type: Cigarettes; Other: 3 cigarettes a day; entered on: 10/10/17 Sex Medical Equipment Implanted Date:02/25/18Target Site:Groin Right Description Quantity MRI Company Model MESH BARD 3X6IN 7.5X15CM - B SUSANNA ([id number]) 1 Bard Davol 29 Unknown ANJELICA:No Information Assigning Authority: FDA
--- OUTSIDE RECORDS SUMMARY | 2022-07-04 14:37 | XMS_ITS | Continuity of Care Document ---
Author Name Unknown Organization [facility] Address [address] [place] [address]- Care Team Providers Care Rehabilitation Case Coordinator Name Role Phone Charles LANG, Shabana Joe Primary Care Physician [facility]counter [facility] Date(s): 04/24/22 - 05/24/[address] [address]- Allergies, Adverse Reactions, Alerts Substance Reaction Severity [...] 10/30/21 15:13:00 EDT, Route to Pharmacy Electronically, [facility]/pharmacy #[id number],Partial fill upon patient request if the prescripti... Start Date: 10/30/21 Status: Ordered albuterol CFC free 90 mcg/inh inhalation aerosol 2, puffs, Inhalation, Every 6 hours, PRN, # 1 each, Refills 11, Tot. Refills 11, Maintenance, 10/10/21 9:46:00 EDT, Aerosol, Route to Pharmacy Electronically, [id number], [place], [place] - [id number], 173, c... Start Date: 10/10/21 Stop Date: 10/05/22 Status: Ordered dicyclomine 20 mg oral tablet 1 tablet = 20 mg, By Mouth, 3 times a day, For stomach cramping., # 21 tablet, 0 Refills, Maintenance, 05/24/22 11:58:00 EDT, Tablet, [facility]/pharmacy #1130, Partial fill upon patient request if [...] 05/26/22 15:21:00 EDT, 04/28/22 15:18:00 EST, Patch, [facility] 3, Partial fill upon patient request if the prescription is for a schedule II opioid drug., 1 patch Topically Daily, 17... Start Date: 04/28/22 Stop Date: 05/26/22 Status: Ordered omeprazole 40 mg oral enteric coated capsule 1 capsule = 40 mg, By Mouth, Daily, For abdominal pain/ stomach acid/ reflux, # 14 capsule, 0 Refills, Maintenance, 05/24/22 11:59:00 EDT, EC Capsule, [facility]/pharmacy #1130, Partial fill upon patient request if the prescription is for a schedule II opioi... Start Date: 05/24/22 Stop Date: 06/07/22 Status: Ordered predniSONE 5 mg oral tablet 1 tablet = 5 mg, By Mouth, Daily, # 5 tablet, 0 Refills, Maintenance, 04/29/22 13:40:00 EST, Tablet, [facility]/pharmacy #1130, Partial fill upon patient request if [...] MRI Safety Implantable Status Assigning Authority Unknown [id number] Unknown 10/04/21 Unknown Unknown Active Unknown Patient Care team information Care Team Personnel Name: Mendy Spicer RN Position: [facility] RN Member Role: Primary Care Nurse Name: Shiela Mays RN Position: [facility] RN Member Role: Primary Care Nurse Name: Ashley Fileds RN Position: [facility] MR W/ Merge Member Role: Primary Care Nurse Name: Keith Stacy MD Position: [facility] RECLAMATION ENGINEER MD Member Role: Lifetime RECLAMATION ENGINEER Physician Address: Address: [address] [address]- [place] Name: Shabana Soto MD, I Position: [facility] Primary Care Physician Member Role: PCP Address: Address: [address] [place] [address]- Name: Robin Wagner Position: [facility] RN Member Role: Primary Care Nurse Name: Justin Francis RN Position: S RN Member Role: Primary Care Nurse Name: Laya Montes RN Position: [facility] RN Member Role: Primary Care Nurse Name: Alice Juarez RN Position: [facility] RN Member Role: Primary Care Nurse Name: Fela Garcia RN Position: [facility] ED RN W/OE and Tasks Member Role: Primary Care Nurse Name: Anay Rouse RN Position: [facility] RN Member Role: Primary Care Nurse Name: Jennifer Weaver RN Position: [facility] RN Member Role: Primary Care Nurse Name: Roxana Young RN Position: [facility] RN Member Role: Primary Care Nurse Name: Megan Grant RN Position: [facility] ED RN W/OE and Tasks Member Role: Primary Care Nurse Name: Eliane Vo RN Position: [facility] RN Member Role: Primary Care Nurse Name: Neda Hernandez RN Position: [facility] PCO RN Member Role: Primary Care Nurse Care Team Related Persons Name: MENDEL MCKEON Address: home [address], [place] [address] Name: GIANA LAMAS Address: home [address] [place] [address] Name: ROSHNI JUÁREZ Address: [place] [address] Name: SINDHU SCHRADER Address: home [address] [place] [address] Name: CRAIG VACA Address: home [address] [place] [address]
--- OUTSIDE RECORDS SUMMARY | 2022-07-04 14:37 | XMS_ITS | Continuity of Care Document ---
Author Name Unknown Organization [facility] ter Address [address] [place] [address]- Care Team Providers Care Business Account Leader Name Role Phone Shabana Soto MD, I Primary Care Physician [phone] Encounter [facility] Date(s): 06/17/19 - 06/18/[address] [address]- [facility] Discharge Disposition: A-D/C Home Attending Physician: Hunter [...] 06/15/1912:44:37 EDT, Aerosol, Route to Pharmacy Electronically, [id number], [facility]/pharmacy #[id number], Compound Start Date: 06/15/18 [...] 03/05/19 3:09:00 EST, Route to Pharmacy Electronically, [facility]/pharmacy #[id number], 174, cm, 12/09/18 8:31:00 [...] Exam Date Time Procedure Performing Provider Status 06/18/19 12:14 AM Chest 2 Views Frontal and Lat Allen Kapoor; Rjei (Verified) Notes: (Chest 2 Views Frontal and Lat) Reason For Exam: Shortness of Breath, Fever;Other: RESULT: Chest 2 Views Frontal and Lat Chest 2 Views Frontal and Lat INDICATION: Pt states she was havig CP, on and off x 2 days. pt states she manually checked her ownpulse and it was 167. COMPARISON: Multiple priors, most recent 05/09/2018 FINDINGS: LINES AND TUBES: None. LUNGS AND PLEURA: Clear lungs. Normal pulmonary vascularity. No pleural effusion. No pneumothorax. HEART, MEDIASTINUM AND TALI: Heart is normal in size. Normal mediastinal and hilar contour. BONES AND SOFT TISSUES: No acute abnormality. IMPRESSION: Normal chest. Multiple prior negative chest in the last 2 years. Consider anxiety. I have personally reviewed the images and I agree with this report. WSN: [id number] Ordering Physician: Stefany Perez Dictated By: Eduardo Valdez MD Dictated Date/Time: 06/18/19 7:45 am Reviewed By: Asael Laguna MD Signed By: Asael Laguna MD Signed Date/Time: 06/18/19 7:50 am Transcribed By: KARIE Transcribed Date/Time: 06/18/19 6:36 am Vital Signs Most recent to oldest [Reference Range]: 1 2 Oxygen Saturation [94-100 %] 100 % (06/17/19 11:38 PM) 100 % (06/17/19 11:16 PM) Pulse Rate [55-90 bpm] 52 bpm *L* (06/17/19 11:38 PM) 50 bpm *L* (06/17/19 11:16 PM) Blood Pressure [90-138/55-84 mm Hg] 118/ 82mm Hg (06/17/19 11:38 PM) Respiratory Rate [16-30 br/min] 14 br/mi n *L* (06/17/19 11:38 PM) Temperature [96.8-100.4 DegF] 98.7 DegF (06/17/19 11:38 PM) Mode of Delivery (Oxygen) Room air (06/17/19 11:38 PM) Room air (06/17/19 11:16 PM) Blood pressure sites Arm, left (06/17/19 11:38 PM) Temperature Route Oral (06/17/19 11:38 PM) Social History Social History Type Response Smoking Status Current every day sm oker; Type: Cigarettes; Other: 3 cigarettes a day; entered on: 10/10/17 Sex Medical Equipment Implanted Date:02/25/18Target Site:Groin Right Description Quantity MRI Company Model MESH BARD 3X6IN 7.5X15CM - B SUSANNA ([id number]) 1 Bard Davol 29 Unknown ANJELICA:No Information Assigning Authority: FDA
--- OUTSIDE RECORDS SUMMARY | 2022-07-04 14:37 | XMS_ITS | Continuity of Care Document ---
Author Name Unknown Organization [facility] Address [address] [place] [address]- Care Team Providers Care First Aid Director Name Role Phone Charles LANG, Shabana Joe Primary Care Physician [phone] Encounter [facility] Date(s): 10/29/21 - 11/28/[address] [address]- Allergies, Adverse Reactions, Alerts Substance Reaction Severity [...] EDT, Route to Pharmacy Electronically, [facility]/pharmacy #[id number],Partial fill upon patient request if the prescripti... Start Date: 10/30/21 Status: Ordered albuterol CFC free 90 mcg/inh inhalation aerosol 2, puffs, Inhalation, Every 6 hours, PRN, # 1 each, Refills 11, Tot. Refills 11, Maintenance, 10/10/21 9:46:00 EDT, Aerosol, Route to Pharmacy Electronically, [id number], [place], [place] - [id number], [address], c... Start Date: 10/10/21 Stop Date: 10/05/22 Status: Ordered docusate sodium 100 mg oral capsule 1 capsule = 100 mg, By Mouth, 2 times a day, PRN as needed for constipation, # 60 capsule, 0 Refills, Maintenance, 10/30/21 15:12:00 EDT, Capsule, [facility]/pharmacy #[id number], Partial fill upon patient request if the prescription is for a schedule II opioid dr... Start Date: 10/30/21 Status: Ordered Estrace 2 mg oral tablet 1 tablet = 2 mg, By Mouth, Daily, # 30 tablet, 0 Refills, Maintenance, 10/30/21 15:28:00 EDT, Tablet, [facility]/pharmacy #[id number], Partial fill upon patient request if the prescription is for a schedule II opioid drug., 173, cm, 10/27/21 23:24:00 EDT, Height,... Start Date: 10/30/21 Status: Ordered ibuprofen 600 mg oral tablet 600 mg, 1, tablet, By Mouth, 4 times a day, PRN, # 40 tablet, Refills 0, Tot. Refills 0, Maintenance, for pain, 10/30/21 15:12:00 EDT, Route to Pharmacy Electronically, [facility]/pharmacy #[id number], Partial fill upon patient request if the prescription is for a... Start Date: 10/30/21 Status: Ordered oxyCODONE 5 mg oral capsule 1 capsule = 5 mg, By Mouth, Every 6 hours, PRN as needed for pain, # 10 capsule, 0 Refills, Maintenance, 11/07/21 18:57:00 EDT, Capsule, [facility]/pharmacy #[id number], Partial fill upon patient request if [...] EDT, Route to Pharmacy Electronically, [facility]/pharmacy #[id number], Partial fill upon patient request if [...] MRI Safety Implantable Status Assigning Authority Unknown [id number] Unknown 10/04/21 Unknown Unknown Active Unknown Care Team Personnel Name: Shabana Soto MD, I Address: [address] [place] [address], [place] [address]-
--- OUTSIDE RECORDS SUMMARY | 2022-07-04 14:37 | XMS_ITS | Continuity of Care Document ---
Author Name Unknown Organization [facility] ter Address [address] [place] [id number]- Care Team Providers Care Manager Home Healthcare Name Role Phone Shabana Soto MD, I Primary Care Physician Encounter [facility] Date(s): 02/06/22 - 02/07/[address] [address]- Encounter Diagnosis Pneumomediastinum(Final) - 02/06/22 Discharge Disposition: A-D/C Home Attending Physician: Candice Moffett MD Admitting Physician: Patsy Champagne MD Referring Physician: Not on Staff, Referring [...] 10/30/21 15:13:00 EDT, Route to Pharmacy Electronically, [facility]/pharmacy #[id number],Partial fill upon patient request if the prescripti... Start Date: 10/30/21 Status: Ordered albuterol CFC free 90 mcg/inh inhalation aerosol 2, puffs, Inhalation, Every 6 hours, PRN, # 1 each, Refills 11, Tot. Refills 11, Maintenance, 10/10/21 9:46:00 EDT, Aerosol, Route to Pharmacy Electronically, [id number], [place], [place] - [id number], [address], c... Start Date: 10/10/21 Stop Date: [...] Exam Date Time Procedure Performing Provider Status 02/07/22 11:23 AM Chest 2 Views Frontal and Lat Aguilar, Chuy; Auth (Verified) Notes: (Chest 2 Views Frontal and Lat) Reason For Exam: follow up pneumomediastimun;Other: RESULT: Chest 2 Views Frontal and Lat Chest 2 Views Frontal and Lat Reason: Other:; follow up pneumomediastimun; Clinical Question(s): Other: COMPARISON: Several prior studies, the most recent 02/06/2022 FINDINGS: LINES AND TUBES: None. LUNGS AND PLEURA: Lungs are well aerated and clear with normal vascularity. There may be a 1 or more small blebs in the apex of the right hemithorax. No pleural effusion. No pneumothorax. HEART, MEDIASTINUM AND YANIV: Diminished pneumomediastinum compared with the previous day. Normal cardiac size. Normal mediastinal and hilar contour. BONES AND SOFT TISSUES: Stable subcutaneous emphysema in the right supraclavicular region. IMPRESSION: Diminished but not completely resolved pneumomediastinum. Stable subcutaneous emphysema in the right supraclavicular region. Question of right apical blebs. WSN: [id number] Ordering Physician: Loki Kelley Dictated By: Moustapha Tian MD Dictated Date/Time: 02/07/22 12:21 p Reviewed By: Moustapha Tian MD Signed By: Moustapha Tian MD Signed Date/Time: 02/07/22 12:21 pm Transcribed By: KARIE Transcribed Date/Time: 02/07/22 12:18 pm * Exam Date Time Procedure Performing Provider Status 02/06/22 2:56 PM Esophagus Barium Swallow Jazmine Hartman; Auth (Verified) Notes: (Esophagus Barium Swallow) Reason For Exam: Esophageal perforation;Substernal Pain RESULT: Esophagus Barium Swallow PROCEDURE: Esophagus Barium Swallow CLINICAL INDICATION: Hx of Present Illness: : Dizzy Chest pain Nausea Pt reports doing Cocaine at 2am. Pt reports waking up and feeling dizzy with pain in her chest . Pt also c o Nausea. (02 06 22 08:47); Reason: Substernal Pain; Esophageal perforation; Clinical Question(s): Perforation; Special Instructions: Gastrograffin first, if no perforation then thin barium followed by full barium. COMPARISONS: None FLUOROSCOPY TIME: 1 minute 42 seconds minutes EXPOSURE: 469.6 uGym2 TECHNIQUE: Water-soluble and barium contrast esophagram was performed by Geronimo Henderson PA-C. FINDINGS: Strategic Debriefing Officer: Excreted contrast is noted in the right renal calyx with trace also seen on the left. Swallow: Normal oral and pharyngeal phases with no laryngeal penetration or subglottic aspiration. Esophagus: Normal in contour and mucosal appearance. No evidence of leak or perforation. Normal esophageal motility, with prompt transit of liquid barium into the stomach. No hiatal hernia. No spontaneous gastroesophageal reflux was appreciated during the study. No evidence of esophageal web, narrowing or outpouching. No esophageal obstruction. The stomach and proximal duodenum are grossly normal. Contrast promptly empties from the stomach into a nondilated duodenum. No gastric outlet obstruction. IMPRESSION: No evidence of esophageal leak or perforation. By undersigning and finalizing the report, the attending radiologist confirms he/she has personallyreviewed and interpreted the images and agrees with the description of the findings. I have personally reviewed the images and I agree with this report. WSN: [id number] Ordering Physician: Gabriel Garcia Dictated By: Wallace Montes Dictated Date/Time: 02/06/22 4:47 pm Reviewed By: Moustapha Casillas MD Signed By: Moustapha Casillas MD Signed Date/Time: 02/06/22 4:52 pm Transcribed By: KARIE Transcribed Date/Time: 02/06/22 2:17 pm * Exam Date Time Procedure Performing Provider Status 02/06/22 12:[address] Chest W/ Contrast Joe Corado; Auth (Verified) Notes: (CT Chest W/ Contrast) Reason For Exam: Pneumomediastinum;Other: RESULT: CT Chest W/ Contrast CT Chest W/ Contrast INDICATION: Hx of Present Illness: : Dizzy Chest pain Nausea Pt reports doing Cocaine at 2am. Pt reports waking up and feeling dizzy with pain in her chest . Pt also c o Nausea. (02 06 22 08:47); Reason: Pneumomediastinum; Clinical Question(s): Interstitial Alveolar Infiltration TECHNIQUE: Helical CT scan of the chest with IV contrast, formatted in 3 planes. 75 cc of [id number] was administered intravenously. Weight-based protocol was performed using automatic exposure control. CTDIvol Body: 3.00 mGy, DLP Body: 123 mGy*cm. COMPARISON: Chest CT 05/10/2018. Radiographs 02/06/2022. FINDINGS: Strategic Debriefing Officer view findings, lines and tubes: None. Trachea and airways: Patent without evidence of tracheal or endobronchial lesion. Lungs and pleura: No consolidation. A couple of 2 to 3 mm nodules in the left lung are likely significant in a patient of this age. No effusion or pneumothorax. Mediastinum and yaniv: Extensive pneumomediastinum. No mediastinal fluid collection. Unremarkable CTappearance of the esophagus. No mediastinal or hilar lymphadenopathy. Heart: Heart is normal in size. No pericardial effusion. Aorta: No aortic aneurysm. Pulmonary arteries: Normal caliber. No evidence of pulmonary embolism on this study performed without angiographic technique. Chest wall soft tissues: Subcutaneous emphysema in the bilateral supraclavicular areas extending into the right axilla. Diaphragm: Intact. Upper abdomen: No significant abnormality. Bones: No acute abnormality. IMPRESSION: Pneumomediastinum and subcutaneous emphysema as above. No mediastinal fluid collection. Given pneumomediastinum, barium swallow should be considered to assess the esophagus. WSN: [id number] Ordering Physician: Mark Correia Dictated By: Bo Tomlin MD Dictated Date/Time: 02/06/22 12:41 p Reviewed By: Bo Tomlin MD Signed By: Bo Tomlin MD Signed Date/Time: 02/06/22 12:41 pm Transcribed By: KARIE Transcribed Date/Time: 02/06/22 12:31 pm * Exam Date Time Procedure Performing Provider Status 02/06/22 10:30 AM Chest 2 Views Frontal and Lat Bein , Akosua; Auth (Verified) Notes: (Chest 2 Views Frontal and Lat) Reason For Exam: Shortness of Breath, Fever;Other: RESULT: Chest 2 Views Frontal and Lat Chest 2 Views Frontal and Lat Hx of Present Illness: : Dizzy Chest pain Nausea Pt reports doing Cocaine at 2am. Pt reports wakingup and feeling dizzy with pain in her chest . Pt also c o Nausea. (02 06 22 08:47); Reason: Other:;Shortness of Breath, Fever; Clinical Question(s): Pneumonia COMPARISON: 06/17/2021 FINDINGS: Pneumomediastinum Lung apices are excluded IMPRESSION: Pneumomediastinum Cortexted to CARLITO Correia at the time of dictation Limited evaluation of the lung apices. Within this limitation no evidence of pneumothorax A critical result message (Red) has been communicated via the [facility] on 02/06/2022 10:36 AM, Message ID [id number]. WSN: [id number] Ordering Physician: Mark Correia Dictated By: Moustapha Casillas MD Dictated Date/Time: 02/06/22 10:36 a Reviewed By: Moustapha Casillas MD Signed By: Moustapha Casillas MD Signed Date/Time: 02/06/22 10:36 am Transcribed By: KARIE Transcribed Date/Time: 02/06/22 10:30 am Vital Signs Most recent to oldest [Reference Range]: 1 2 3 Height 173 cm (02/07/22 11:41 AM) 173 cm (02/07/22 7:59 AM) 173 cm (02/07/22 3:46 AM) Weight 48.5 kg (02/06/22 6:51 PM) 48.3 kg (02/06/22 4:40 PM) 48.3 kg (02/06/22 2:47 PM) Oxygen Saturation [94-100 %] 100 % (02/07/22 11:41 AM) 100 % (02/07/22 7:59 AM) 100 % (02/07/22 3:46 AM) Pulse Rate [55-90 bpm] 67 bpm (02/07/22 11:41 AM) 56 bpm (02/07/22 7:59 AM) 66 bpm (02/07/22 3:46 AM) Body Mass Index [18.5-24.99 kg/m2] 16.21 kg/m2 *L* (02/06/22 6:51 PM) 16.14 kg/m2 *L* (02/06/22 4:40 PM) 16.14 kg/m2 *L* (02/06/22 2:47 PM) Blood Pressure [90-138/55-84 mm Hg] 118/56mm Hg (02/07/22 11:41 AM) 107/52mm Hg (02/07/22 7:59 AM) 116/76mm Hg (02/07/22 3:46 AM) Respiratory Rate [16-30 br/min] 14 br/min *L* (02/07/22 11:41 AM) 14 br/min *L* (02/07/22 7:59 AM) 18 br/min (02/07/22 3:46 AM) Temperature [96.8-100.4 DegF] 98.4 DegF (02/07/22 11:41 AM) 98.0 DegF (02/07/22 7:59 AM) 97.8 DegF (02/07/22 3:46 AM) Mode of Delivery (Oxygen) Room air (02/07/22 11:41 AM) Room air (02/07/22 7:59 AM) Room air (02/07/22 3:46 AM) Blood pressure sites Arm, left (02/07/22 11:41 AM) Arm, left (02/07/22 7:59 AM) Arm, right (02/07/22 3:46 AM) Temperature Route Oral (02/07/22 11:41 AM) Oral (02/07/22 7:59 AM) Oral (02/07/22 3:46 AM) Dry Weight 48.5 kg (02/06/22 6:51 PM) 48.3 kg (02/06/22 4:40 PM) 48.3 kg (02/06/22 2:47 PM) Weight Obtained Via Patient/family stated (02/06/22 6:51 PM) Patient/family stated (02/06/22 9:04 AM) Dry Weight Obtained Via Patient/family stated (02/06/22 6:51 PM) Patient/family stated (02/06/22 9:04 AM) Social History Social History Type Response [...] MRI Safety Implantable Status Assigning Authority Unknown [id number] Unknown 10/04/21 Unknown Unknown Active Unknown History and physical note * Loki Kelley DO: MODIFY, PERFORM, MODIFY Event Display: History and Physical Hospital Authored Date: Patient: ??CESAR PEREZ ? Age:??31 Years?Sex:??Female?:??1990?? Chief Complaint/Reason for Consultation Pt reports doing Cocaine at 2am. Pt reports waking up and feeling dizzy with pain in her chest . Ptalso c/o Nausea. History of Present Illness This is a 31-year-old female with past medical history including asthma,??depression,??endometriosis,??pseudoseizures,??and??noncardiac chest pain, who currently presents to the hospital??for left-sided chest pain.?? The patient reports that she awoke this morning with the chest pain,??but denies any shortness of breath.?? She does admit to cocaine around 2 AM in the morning.?? She reported some radiation of her chest pain to the left shoulder??in the ED, but denies this presently.?? The patient had??couple of episodes of seizure-like activity??in the ED, but??was immediately alert and oriented following the episodes.?? Lab work obtained in the ED showed her to have a normal white count of 9.4 with a hemoglobin 11.3 and platelet count of 288.?? Other labs were fairly unremarkable with a high-sensitivity troponin of less than 6.?? The patient did undergo a chest x-ray that showed pneumomediastinum.?? Thoracic surgery consult was obtained and they recommended CT scan of the chest with co ntrast, which was obtained and showed pneumomediastinum and subcutaneous emphysema.?? The patient also underwent a barium swallow at the esophagus which showed no evidence of esophageal leak or perforation.?? Thoracic surgery recommended admitting the patient for follow-up. Review of Systems A complete review of systems was obtained and noted to be negative except as stated above in the HPI. Objective Measurements?? Height: 173 cm (02/07/22) Weight: 48.5 kg (02/06/22) Dry Weight: 48.5 kg (02/06/22) Body Mass Index:??16.21 kg/m2??Low (02/06/22) ? Vital Signs?? Temperature: 97.8 DegF (02/07/22 03:46:00) Temperature Route: Oral (02/07/22 03:46:00) Pulse Rate: 66 bpm (02/07/22 03:46:00) Respiratory Rate: 18 br/min (02/07/22 03:46:00) Systolic Blood Pressure: 116 mm Hg (02/07/22 03:46:00) Diastolic Blood Pressure: 76 mm Hg (02/07/22 03:46:00) Blood pressure sites: Arm, right (02/07/22 03:46:00) Mean Arterial Pressure: 89 mm Hg (02/07/22 03:46:00) Pulse Pressure: 40 mm Hg (02/07/22 03:46:00) Oxygen Saturation: 100 % (02/07/22 03:46:00) Mode of Delivery (Oxygen): Room air (02/07/22 03:46:00) Early Warning Score: 2 (02/07/22 03:47:05) ? Physical Exam General: Alert, in no acute cardiopulmonary distress. Mental Status: Oriented to person, place and time. Normal affect. Head: Normocephalic. Eyes: Pupils are equal, round and reactive to light. Extraocular muscles intact. Ear, Nose and Throat: Oropharynx clear, mucous membranes moist. Ears and nose without masses, lesions or deformities. Trachea midline. Neck: Supple, Full range of motion. Respiratory: Clear to auscultation and percussion. No wheezing, rales or rhonchi. Cardiovascular: Heart sounds normal. Regular rate and rhythm, no murmurs, rubs or gallops. Gastrointestinal: Abdomen soft, non-tender, non-distended. Normal bowel sounds. No pulsatile mass. No hepatosplenomegaly. Neurologic: Cranial nerves II-XII grossly intact. No focal neurological deficits. Moves all extremities spontaneously. Sensation intact bilaterally. Skin: No rashes or lesions. No petechiae or purpura. No edema. Musculoskeletal: No cyanosis or clubbing. No gross deformities. Normal range of motion. Assessment/Plan This is a 31-year-old female with past medical history of asthma, pseudoseizures,??endometriosis,??and chest pain, who currently presents to the hospital??after she noted??chest pain??early this morning when she awoke.?? She was noted here to have??evidence of??pneumomediastinum.?? She is now admitt ed??for management. ?? Pneumomediastinum ??(J98.2) This patient will be admitted to an observation medical bed. ??She presents??with symptoms of chestpain and was noted on imaging to have evidence of pneumomediastinum.?? The exact etiology of this was unclear, but possibly related??to her history of??chronic lung disease/asthma.?? She denies any recent URI??symptoms or infection. ??She did undergo a barium swallow??of the esophagus in the ED andthis was negative for any evidence of perforation.?? We will plan on obtaining a follow-up chest x-ray in the morning??to evaluate for any worsening of any pneumomediastinum.?? Thoracic surgery??has seen the patient as well??and we will await any further recommendations from their standpoint. ?? Asthma.?? We will continue patient on an albuterol??inhaler as needed. ?? Pseudoseizures. Patient has a history of pseudoseizures and did have some seizure-like activity in the ED. ??However she did not have any postictal confusion.?? No need for??antiseizure medication presently. ?? CODE STATUS. ??Patient is a full code. ?? DVT prophylaxis.?? We will use subcu Lovenox and encourage early mobilization. ?? Patient seen on February 06, 2022. ? Histories Allergies Allergies ?(Active and Proposed Allergies [...] tubal ligation : 02/27/14 ? Social History Patient lives with her children. Alcohol Details:??Use: Rare. Substance Abuse Details:??Use: Current. ??Type: Cocaine. ??Other: Marijuana in the past. ??Frequency: 1-2 times permonth. Tobacco Details:??Use: Half pack a day currently, but is smoked as much is a pack a day??in the past, and began smoking as a teenager. ?? Family Medical History?? Mother in her 40s??from??liver failure and diabetes.?? Father's history is unknown. Medications Home Medications??(Confirmed with the patient) Albuterol (albuterol CFC free 90 mcg/inh inhalation aerosol)?2?puff(s)?Inhalation?Every6 hours?as needed?for 30?Days?Wheezing/Shortness of Breath ? Results Recent Labs BLOOD COUNT & DIFF WBC 9.4 k/mm3 ()?? 02/06/2022 10:24 RBC 4.16 m/mm3 (Low)?? 02/06/2022 10:24 Hgb 11.3 Gm/dL (Low)?? 02/06/2022 10:24 Hct 35.6 % (Low)?? 02/06/2022 10:24 MCV 85.6 femtoliters ()?? 02/06/2022 10:24 MCH 27.2 pg ()?? 02/06/2022 10:24 MCHC 31.7 g/dL (Low)?? 02/06/2022 10:24 Platelet Count 288 k/mm3 ()?? 02/06/2022 10:24 RDW-SD 55.8 femtoliters (High)?? 02/06/2022 10:24 MPV 9.5 femtoliters ()?? 02/06/2022 10:24 Nucleated RBC (Automated) 0.0 #/100 WBC'S ()?? 02/06/2022 10:24 Abs. NRBC 0.0 k/mm3 ()?? 02/06/2022 10:24 Abs. Neut 6.7 k/mm3 ()?? 02/06/2022 10:24 Abs. Lymph 1.5 k/mm3 ()?? 02/06/2022 10:24 Abs. [place] 0.6 k/mm3 ()?? 02/06/2022 10:24 Abs. Eo 0.5 k/mm3 (High)?? 02/06/2022 10:24 Abs. Baso 0.0 k/mm3 ()?? 02/06/2022 10:24 Neut % 71.4 % ()?? 02/06/2022 10:24 Lymph % 16.3 % ()?? 02/06/2022 10:24 [place] % 6.7 % ()?? 02/06/2022 10:24 Eos % 5.0 % ()?? 02/06/2022 10:24 Baso % 0.3 % ()?? 02/06/2022 10:24 Imm Gran 0.3 % ()?? 02/06/2022 10:24 Abs. Imm Gran 0.0 k/mm3 ()?? 02/06/2022 10:24 ?? CARDIAC High Sensitivity Troponin (HSTnT) <6 ng/L ()?? 02/06/2022 10:24 ?? CHEM GENERAL Sodium 141 mmol/L ()?? 02/06/2022 10:24 Potassium 3.7 mmol/L ()?? 02/06/2022 10:24 Chloride 105 mmol/L ()?? 02/06/2022 10:24 Bicarbonate Level 23 mmol/L ()?? 02/06/2022 10:24 Anion Gap 13 ()?? 02/06/2022 10:24 Glucose Level 89 mg/dL ()?? 02/06/2022 10:24 BUN 7 mg/dL ()?? 02/06/2022 10:24 Creatinine-Blood 0.7 mg/dL ()?? 02/06/2022 10:24 Estimated GFR Creatinine 120 ML/MIN/1.73 M2 ()?? 02/06/2022 10:24 Calcium 8.8 mg/dL ()?? 02/06/2022 10:24 ?? HEME OTHER Hold Blue Top SPECIMEN DISCARDED AFTER 4 HOURS. ()?? 02/06/2022 10:24 ?? VIROLOGY COVID-19 POC Result NEGATIVE ()?? 02/06/2022 09:08 ? Imaging(s) ?Other Image ?EKG showing normal sinus rhythm with a heart rate of 60. There is T wave inversion leadIII and aVF. ?(02/06/2022 10:30 EST Chest 2 Views Frontal and Lat) IMPRESSION: ?? Pneumomediastinum [1] ?? (02/06/2022 12:[address] Chest W/ Contrast) IMPRESSION: ?? Pneumomediastinum and subcutaneous emphysema as above. No mediastinal fluid collection. Given pneumomediastinum, barium swallow should be considered to assess the esophagus. [2] ?? (02/06/2022 14:56 EST Esophagus Barium Swallow) IMPRESSION:? No evidence of esophageal leak or perforation. [3] [1]??Chest 2 Views Frontal and Lat; Moustapha Casillas MD 02/06/2022 10:30 EST [2]??CT Chest W/ Contrast; Bo Tomlin MD 02/06/2022 12:28 EST [3]??Esophagus Barium Swallow; Moustapha Casillas MD 02/06/2022 14:56 EST EKG study * Event Display: ECG 12-Lead Authored Date: Please click on pdf link to open report * Event Display: ECG 12-Lead Authored Date: Ventricular Rate: 60 BPM Atrial Rate: 60 BPM P-R Interval: 116 ms QRS Duration: 88 ms Q-T Interval: 456 ms QTC Calculation(Bazett): 456 ms P Severance: -62 degrees R Severance: 74 degrees T Severance: 17 degrees Normal sinus rhythm Abnormal ECG When compared with ECG of 06-NOV-2021 21:04, Confirmed by OFE DWYER MD ([id number]) on 02/06/2022 11:19:33 AM Rex: OFE DWYER MD Note * Event Display: Cardiac Rhythm Strips Authored Date: * Robin Wagner: PERFORM Event Display: Discharge/Transfer Note Hospital Authored Date: Nursing Discharge Note Entered On: 02/07/2022 14:19 EST Performed On: 02/07/2022 14:12 EST by Robin Wagner Nursing Discharge Note 2 Discharge Time : 02/07/2022 14:12 EST Discharge Level of Care at Discharge : Home/[facility] Patient Left Unit Via : Wheelchair Patient Accompanied Off Unit with : Responsible adult DC Instructions Provided & Signed by Pt : Yes Patient Understands D/C Instructions : Yes Patient Instructions Discharge Signed : Yes Discharge Comments : Pt. discharged via wheelchair accompanied by self, awake and oriented x3, no c/o pain, no respiratory distress, pt. verbalized understanding of d/c instuctions and verbalized having belongings. VSS. Did Pt have Specialty Bed or Wound Vac : No Robin Wagner - 02/07/2022 14:12 EST * Betina LANG, Candice: PERFORM Event Display: Discharge/Transfer Note Hospital Authored Date: Patient: ??CESAR PEREZ ? Age:??31 Years?Sex:??Female?:??1990?? Patient Information Discharge Location: [facility] Primary Care Physician: Shabana Soto MD, I Admit Date/Time: 02/06/22 08:41 Discharge Disposition Discharge Disposition: Home: No Services Discharge Diagnosis Pneumomediastinum (J98.2) ?? _ Discharge Medications Acetaminophen (acetaminophen 325 mg oral tablet)?650?Milligram?2?tablet?By Mouth?Every 4 hours?as needed?as needed for fever Albuterol (albuterol CFC free 90 mcg/inh inhalation aerosol)?2?puff(s)?Inhalation?Every6 hours?as needed?for 30?Days?Wheezing/Shortness of Breath ? Quality Measures Tobacco Use Treatment:? Durable Medical Equipment Ambulatory devices needed: None (02/07/22) ? Medications Started none Allergies Allergies ?(Active and Proposed Allergies Only) Other Food Allergy? 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 (Severity: Unknown severity, Onset: Unknown) ?Reactions: sneezing ? Future Appointments Friday 9:50 AM EST ?? With: Charles LANG, Shabana Joe Where: [facility] [address] [place] [address]- Objective Assessment and Plan ?This is a 31-year-old female with past medical history of asthma, pseudoseizures,??endometriosis,??and chest pain, who currently presents to the hospital??after she noted??chest pain??early this morning when she awoke.?? She was noted here to have??evidence of??pneumomediastinum.?? She is now admi tted??for management. Barium swallow did not show any evidence of esophageal perforation.?? Patientwas seen by thoracic surgery today, was started on diet, tolerated well.?? Repeat chest x-ray showsimprovement but not complete resolution . Remain hemodynamically stable. Will be discharged home, plan wsa discussed with pt. ? Pneumomediastinum ??(J98.2) . ??She presents??with symptoms of chest pain and was noted on imaging to have evidence of pneumomediastinum.?? The exact etiology of this was unclear, but possibly related??to her history of??chronic lung disease/asthma.?? She denies any recent URI??symptoms or infection. ??She did undergo a barium swallow??of the esophagus in the ED and this was negative for any evidence of perforation.?? By thoracic surgery this morning, was started on diet Patient tolerating diet Repeated checks x-ray was done, showed improvement in the mediastinum but not complete resolution Patient remained hemodynamically stable She will be discharged home today ?? Asthma.?? continue patient on an albuterol??inhaler as needed. ?? Pseudoseizures. Patient has a history of pseudoseizures and did have some seizure-like activity in the ED.? alsohad another episode earlier this am ?? . Physical Exam GENERAL: In no apparent distress HEENT: Head normocephalic, PERRL,Moist mucous membrane. Neck supple CARDIOVASCULAR: Normal rate and rhythm, no murmurs, no rubs, no gallops RESPIRATORY: Lungs clear to auscultation, no wheezes , no crackles ABDOMEN/GI: Nondistended, soft, nontender, normal bowel sounds EXTREMITIES: No pitting edema BAKER: Alert and oriented x 3.Non focal neuro exam. PSYCHIATRIC: Calm and co-operative SKIN: Warm and dry. ? Consultants Thoracic surgery Pending Results COVID-19 (2019 Novel Coronavirus) PCR ordered on 02/07/2022 Patient Education Titles Spontaneous Pneumothorax?? Follow-Up Appointments Added Follow Up ?Time Frame ?Comments Charles LANG, Shabana Joe?1 to 2 weeks Post Discharge Care Discharge ?02/07/22 13:05:00 EST Discharge Prescriptions ?None, ??02/07/22 13:05:00 EST Home Health Face to Face ^HomeHealthFTF Results Discharge Labs BLOOD COUNT & DIFF WBC 4.8 k/mm3 ()?? 02/07/2022 05:35 RBC 3.49 m/mm3 (Low)?? 02/07/2022 05:35 Hgb 9.5 Gm/dL (Low)?? 02/07/2022 05:35 Hct 30.7 % (Low)?? 02/07/2022 05:35 MCV 88.0 femtoliters ()?? 02/07/2022 05:35 MCH 27.2 pg ()?? 02/07/2022 05:35 MCHC 30.9 g/dL (Low)?? 02/07/2022 05:35 Platelet Count 268 k/mm3 ()?? 02/07/2022 05:35 RDW-SD 58.6 femtoliters (High)?? 02/07/2022 05:35 MPV 9.9 femtoliters ()?? 02/07/2022 05:35 Nucleated RBC (Automated) 0.0 #/100 WBC'S ()?? 02/07/2022 05:35 Abs. NRBC 0.0 k/mm3 ()?? 02/07/2022 05:35 Abs. Neut 6.7 k/mm3 ()?? 02/06/2022 10:24 Abs. Lymph 1.5 k/mm3 ()?? 02/06/2022 10:24 Abs. [place] 0.6 k/mm3 ()?? 02/06/2022 10:24 Abs. Eo 0.5 k/mm3 (High)?? 02/06/2022 10:24 Abs. Baso 0.0 k/mm3 ()?? 02/06/2022 10:24 Neut % 71.4 % ()?? 02/06/2022 10:24 Lymph % 16.3 % ()?? 02/06/2022 10:24 [place] % 6.7 % ()?? 02/06/2022 10:24 Eos % 5.0 % ()?? 02/06/2022 10:24 Baso % 0.3 % ()?? 02/06/2022 10:24 Imm Gran 0.3 % ()?? 02/06/2022 10:24 Abs. Imm Gran 0.0 k/mm3 ()?? 02/06/2022 10:24 ?? CARDIAC High Sensitivity Troponin (HSTnT) <6 ng/L ()?? 02/06/2022 10:24 ? CHEM GENERAL Sodium 142 mmol/L ()?? 02/07/2022 05:35 Potassium 4.4 mmol/L ()?? 02/07/2022 05:35 Chloride 106 mmol/L ()?? 02/07/2022 05:35 Bicarbonate Level 28 mmol/L ()?? 02/07/2022 05:35 Anion Gap 8 ()?? 02/07/2022 05:35 Glucose Level 80 mg/dL ()?? 02/07/2022 05:35 BUN 13 mg/dL ()?? 02/07/2022 05:35 Creatinine-Blood 0.8 mg/dL ()?? 02/07/2022 05:35 Estimated GFR Creatinine 106 ML/MIN/1.73 M2 ()?? 02/07/2022 05:35 Calcium 9.0 mg/dL ()?? 02/07/2022 05:35 ?? HEME OTHER Hold Blue Top SPECIMEN DISCARDED AFTER 4 HOURS. ()?? 02/06/2022 10:24 ? VIROLOGY COVID-19 POC Result NEGATIVE ()?? 02/06/2022 09:08 ? 25_ minutes spent on discharge * Robin Wagner: PERFORM Event Display: Patient Education/Instruction Authored Date: [id number] Inpatient Adult Discharge Instructions [address] [address] Name: CESAR PEREZ : 1990 Visit: 02/06/2022 08:41:00 Current Date: 02/07/2022 13:32 Account: [id number] Inpatient Adult Discharge Instructions We would like [...] and their families. Surveys are administered by [employer] ?? If further treatment with your primary care physician or another doctor is recommended, it is important for you to keep the appointment. Call your primary care physician or return to the Emergency Department immediately if your condition worsens, fails to improve, or new symptoms develop. If you need to find a doctor, you can call [facility] for a referral at [phone] or toll free at [phone] ([phone]) or log in to [email or web address].. ?? You can view and manage your care through the patient portal or by using a health care elba of your choosing. [employer] is a website that allows you to securely view your medical information including your hospital discharge summary, office visit summaries, medications and follow-up visits. You can also request appointments, renew medications, and request access to your medical information using a health care elba of your choosing, or just ask a question. You can enroll at [email or web address] or register during your next office visit. You have been discharged from [facility], Patient Care Unit: D3B. If you have any questions regarding these instructions after you leave, please call us and we will be happy to assist you. [facility] Your Care Team Attending Physician Candice Moffett MD Consulting Providers Leo Del Valle DO Discharging Providers Candice Moffett MD Reason for Admission Pt reports doing Cocaine at 2am. Pt reports waking up and feeling dizzy with pain in her chest . Ptalso c/o Nausea. Your Diagnosis Pneumomediastinum Tests Performed Below is a partial list of the tests performed during your hospitalization. You may have had other tests and procedures not included in this list. Please discuss all test results with your provider. Basic Metabolic Panel CBC CBC w/ Differential COVID-19 (2019 Novel Coronavirus) PCR?-- Results Pending -- COVID-19 RNA POC High??Sensitivity??Troponin T Hold Blue Top Tube CT Chest W/ IV Contrast CXR XR Chest 2 Views Frontal and Lat XR Esophagus Barium Swallow ? You will be contacted within 72 hours with your results. Primary Care Provider Charles LANG, Shabana Jeo Advance Directive Health Care Proxy on File Yes - Health Care Proxy No qualifying data available. Discharge Vitals Temperature: 98.4 DegF Height: 173 cm Pulse Rate: 67 bpm Weight: 48.5 kg Respiratory Rate:??14 br/min??Low Body Mass Index:??16.21 kg/m2??Low Systolic Blood Pressure: 118 mm Hg Body surface area: 1.53 Diastolic Blood Pressure: 56 mm Hg ?? Oxygen Saturation: 100 % ?? Studies Pending All tests and labs ordered during this hospital stay have been completed unless listed below. Please discuss all pending results with your provider listed above in these instructions. ?? COVID-19 (2019 Novel Coronavirus) PCR What to do next Instructions From Your Doctor Discharge Orders Scheduled Follow-Up Appointments Friday 9:50 AM EST ?? With: Shabana Soto MD, I Where: [address] [address]- You Need to Schedule the Following Appointments Follow Up with??Shabana Soto MD, I When??Within 1 to 2 weeks Where: ?? Discharge Medications CESAR PEREZ :1990 Visit Date:02/06/2022 Medications: Please continue your medications until treatment is completed or stopped by your provider. Medications not listed below should be discontinued. Discuss any questions related to medications with your provider. What How Much When Instructions Next Dose Unchanged Acetaminophen (acetaminophen 325 mg oral tablet) 2 tab(s) Oral Every 4 hours as needed for as needed for fever As needed Unchanged Albuterol (albuterol CFC free 90 mcg/ inh inhalation aerosol) 2 puff(s) Inhalation Every 6 hours as needed for Wheezing/Shortness of Breath Duration: 30 Days As needed ?? What How Much When Comments Stop Taking Docusate (docusate sodium 100 mg oral capsule) 1 capsule Oral Twice a day as needed for as needed for constipation Stop Taking Estradiol (Estrace 2 mg oral tablet) 1 tab(s) Oral Daily Stop Taking Ibuprofen (ibuprofen 600 mg oral tablet) 1 tab(s) Oral 4 times a day as needed for for pain Stop Taking Oxycodone (oxyCODONE 5 mg oral capsule) 1 capsule Oral Every 6 hours as needed for as needed for pain Stop Taking Oxycodone (oxyCODONE 5 mg oral tablet) 1 tab(s) Oral Every 6 hours as needed for as needed for pain Stop Taking Senna (Senna 8.6 mg oral tablet) 2 tab(s) Oral Daily at Bedtime Test Results Below is a partial list of the most recent Laboratory test results done prior to this discharge. You may have had other tests and procedures not included in this list. Please discuss all test resultswith your provider. Basic Metabolic Panel (02/07/2022) ???Sodium - 142 mmol/L???Potassium - 4.4 mmol/L???Chloride - 106 mmol/L???Bicarbonate Level - 28 mmol/L???Anion Gap - 8???Glucose Level - 80 mg/dL???BUN - 13 mg/dL???Creatinine-Blood - 0.8 mg/dL???Estimated GFR Creatinine - 106 ML/MIN/1.73 M2???Calcium - 9.0 mg/dL CBC (02/07/2022) ???WBC - 4.8 k/mm3???RBC - 3.49 m/mm3???Hgb - 9.5 Gm/dL???Hct - 30.7 %???MCV - 88.0 femtoliters???MCH - 27.2 pg???MCHC - 30.9 g/dL???Platelet Count - 268 k/mm3???RDW-SD - 58.6 femtoliters???MPV - 9.9femtoliters???Nucleated RBC (Automated) - 0.0 #/100 WBC'S???Abs. NRBC - 0.0 k/mm3 CBC w/ Differential (02/06/2022) ???WBC - 9.4 k/mm3???RBC - 4.16 m/mm3???Hgb - 11.3 Gm/dL???Hct - 35.6 %???MCV - 85.6 femtoliters???MCH - 27.2 pg???MCHC - 31.7 g/dL???Platelet Count - 288 k/mm3???RDW-SD - 55.8 femtoliters???MPV - 9.5 femtoliters???Nucleated RBC (Automated) - 0.0 #/100 WBC'S???Abs. NRBC - 0.0 k/mm3???Abs. Neut - 6.7 k/mm3???Abs. Lymph - 1.5 k/mm3???Abs. [place] - 0.6 k/mm3???Abs. Eo - 0.5 k/mm3???Abs. Baso - 0.0 k/mm3???Neut % - 71.4 %???Lymph % - 16.3 %???[place] % - 6.7 %???Eos % - 5.0 %???Baso % - 0.3 %???Imm Gran- 0.3 %???Abs. Imm Gran - 0.0 k/mm3 COVID-19 RNA POC (02/06/2022) ???COVID-19 POC Result - NEGATIVE High??Sensitivity??Troponin T (02/06/2022) ? ?High Sensitivity Troponin (HSTnT) - <6 ng/L Hold Blue Top Tube (02/06/2022) ???Hold Blue Top - SPECIMEN DISCARDED AFTER 4 HOURS. Allergies (NKA means No Known Allergies) Cats??(sneezing) [...] Educational Leaflet Providered with your Discharge Instructions. Spontaneous Pneumothorax?? Valuables and Belongings I fully understand and agree that [facility] accepts no responsibility for all my personal [...] to send valuables and belongings home. ?? Date for Pt to Sign Valuables/Belongings: 02/06/22 17:47:00 ?? Other Discharge Information ? Pulmonary Rehab Status?? Pulmonary Rehab Discharge Status?? Respiratory Rate:??14 br/min??Low ? Common Emergency Awareness Tips IS IT [...] are strongly encouraged to quit. Please call [facility] Link at [phone] or [phone] ([phone]) or log in to [email or web address] for referrals to smoking cessation programs. ?? The National Suicide Prevention Hotline is available 30/09 if you or someone you know needs to find a reason to keep living. By calling 3-462-535-NebuAd (9795) you'll be connected to a skilled, trained counselor at a crisis center in your area. INPATIENT DISCHARGE INSTRUCTIONS SIGNATURE PAGE MARQUITA CESAR Location:[facility] Registration Date and Time:02/06/2022 08:41 EST Primary Care Physician: Shabana Soto MD, I, CESAR ROSS, have received the above patient education materials/instructions and have verbalized understanding. If ambulance or transport services are being used I further acknowledge being given a choice of service. ?? If you need to contact me, please call me at this number: . Patient/Ceramic Restorer Name: Patient/Ceramic Restorer Signature: Relationship to Patient: Witness Name/Signature: Date: * Candice Moffett MD: PERFORM Event Display: Patient Education Leaflets Authored Date: [id number] Spontaneous Pneumothorax ?? [id number] Spontaneous Pneumothorax Pneumothorax is when air leaks out and gets trapped in the space between the lung and the chest wall (pleural space). It can cause complete or partial collapse of a lung. The trapped air prevents thelung from re-inflating. Spontaneous pneumothorax occurs when a weakened spot on the lung surface (?? ?bleb?? ) ruptures. It may occur in people with asthma or emphysema, or even in those with no pre-existing lung disease. If your pneumothorax is small, it should get better without treatment and can be managed at home. If the amount of trapped air grows larger, it must be removed with a tube (catheter) placed into the pleural space. Home care ??? Rest at home. Don't do vigorous activity or exercise. Speak with your doctor to determine when it's safe to start exerting yourself again. ??? You may use [id number] pain medicineto control pain, unless another medicine was prescribed. Use only the prescribed amount. ( Talk with your healthcare provider before using these medicines if you have chronic liver or kidney disease or have ever had a stomach ulcer or digestive bleeding. Also talk to your provider if you are takingmedicine to prevent blood clots). ??? During the next 3 days, it's important to take 4 slow, deep breaths every 1 to 2 hours while awake. Do this even though your chest may hurt when you breathe. It sends extra oxygen and blood to the lung. This is important to help keep the lung expanded. If the provider gave you a breathing exercise device (incentive spirometer), use it as directed. ??? If you smoke or use e-cigarettes, quit. Ask your healthcare provider for help. ??? Stay away from secondhand smoke. Don't let anyone smoke in your house or car. ?? Follow-up care Follow up with your healthcare provider, or as advised, for a repeat chest X-ray to be sure the pneumothorax is not getting larger. If X-rays were taken, you will be told of any new findings that may affect your care. ?? Call 911 Call 911 if any of these occur. ??? Breathing gets more difficult ??? Confusion, dizziness, or difficulty arousing ??? Fainting or loss of consciousness ??? Rapid heart rate ??? New pain in the chest, arm, shoulder, neck, or upper back ??? Lips or skin looks blue, purple, or lima in color ??? Feeling of doom ?? When to seek medical advice Call your healthcare provider right away if any of these occur: ??? Increased pain with breathing ??? Weakness ??? Fever of 100.4??F (38??C) or higher , or as directed by your healthcare provider ???Coughing up sputum ?? Last Reviewed Date: 2021 ?? [id number] [employer]. All rights reserved. This information is not intended as a substitute for professional medical care. Always follow your healthcare professional's instructions. ?? * [facility] , CIS S: TRANSCRIBE Moustapha Tian MD: VERIFY Event Display: Result: Authored Date: Chest 2 Views Frontal and Lat Reason: Other:; follow up pneumomediastimun; Clinical Question(s): Other: COMPARISON: Several prior studies, the most recent 02/06/2022 FINDINGS: LINES AND TUBES: None. LUNGS AND PLEURA: Lungs are well aerated and clear with normal vascularity. There may be a 1 or more small blebs in the apex of the right hemithorax. No pleural effusion. No pneumothorax. HEART, MEDIASTINUM AND YANIV: Diminished pneumomediastinum compared with the previous day. Normal cardiac size. Normal mediastinal and hilar contour. BONES AND SOFT TISSUES: Stable subcutaneous emphysema in the right supraclavicular region. IMPRESSION: Diminished but not completely resolved pneumomediastinum. Stable subcutaneous emphysema in the right supraclavicular region. Question of right apical blebs. WSN: [id number] Ordering Physician: Loki Kelley Dictated By: Moustapha Tian MD Dictated Date/Time: 02/07/22 12:21 p Reviewed By: Moustapha Tian MD Signed By: Moustapha Tian MD Signed Date/Time: 02/07/22 12:21 pm Transcribed By: KARIE Transcribed Date/Time: 02/07/22 12:18 pm * [facility] , CIS S: TRANSCRIBE Moustapha Casillas MD: VERIFY Event Display: Result: Authored Date: [id number] Chest 2 Views Frontal and Lat Hx of Present Illness: : Dizzy Chest pain Nausea Pt reports doing Cocaine at 2am. Pt reports wakingup and feeling dizzy with pain in her chest . Pt also c o Nausea. (02 06 22 08:47); Reason: Other:;Shortness of Breath, Fever; Clinical Question(s): Pneumonia COMPARISON: 06/17/2021 FINDINGS: Pneumomediastinum Lung apices are excluded IMPRESSION: Pneumomediastinum Cortexted to CARLITO Correia at the time of dictation Limited evaluation of the lung apices. Within this limitation no evidence of pneumothorax A critical result message (Red) has been communicated via the [facility] on 02/06/2022 10:36 AM, Message ID [id number]. WSN: [id number] Ordering Physician: Mark Correia Dictated By: Moustapha Casillas MD Dictated Date/Time: 02/06/22 10:36 a Reviewed By: Moustapha Casillas MD Signed By: Moustapha Casillas MD Signed Date/Time: 02/06/22 10:36 am Transcribed By: KARIE Transcribed Date/Time: 02/06/22 10:30 am Hospital Progress note * Rickie Emmanuel MD: MODIFY Rickie Emmanuel MD: MODIFY, SIGN Rcikie Emmanuel MD: SIGN, PERFORM Rickie Emmanuel MD: PERFORM, SIGN Rickie Emmanuel MD: SIGN, VERIFY Rickie Emmanuel MD: VERIFY, MODIFY Event Display: Progress Note Hospital Authored Date: Patient: CESAR PEREZ Age: 31 years Sex: Female : 1990 Associated Diagnoses: None Author: Rickie Emmanuel MD Subjective Patient sen and examined this AM. Endorsing pain around her neck and throat. Upper GI was negative for leak and medical team advanced patients diet to regular. She endorses pain with eating but refuses to back down her diet to full liquids. Denies fever/chills, CP/SOB, Nausea/vomiting Objective Vitals: Temperature 98 (07:59) Systolic Blood Pressure 107 (07:59) Diastolic Blood Pressure 52 (07:59) Pulse 56 (07:59) SpO2 100 (07:59) Respiratory Rate 14 (07:59) Physical Exam: Constitutional: Thin, cachectic woman. Sleepy and minimally engaging. HEENT: Normocephalic, atraumatic. unable to palpate crepitus on exam today, not appreciable. Respiratory: Normal WOB, CTA b/l. No wheezing, rales or rhonchi. Cardiovascular: Audible S1 S2 regular. No m/r/g. Abdominal: Soft, non-tender, non-distended. No pulsatile mass. No hepatosplenomegaly. Neurologic: Cranial nerves II-XII intact. Motor and sensation grossly intact b/l. Extremities: No wounds, bruises or injuries. No gross deformities. ROM normal. Skin: No rashes or lesions. No petechiae or purpura. Results Review BLOOD COUNT & DIFF WBC 4.8 k/mm3 () 02/07/2022 05:35 RBC 3.49 m/mm3 (Low) 02/07/2022 05:35 Hgb 9.5 Gm/dL (Low) 02/07/2022 05:35 Hct 30.7 % (Low) 02/07/2022 05:35 MCV 88.0 femtoliters () 02/07/2022 05:35 MCH 27.2 pg () 02/07/2022 05:35 MCHC 30.9 g/dL (Low) 02/07/2022 05:35 Platelet Count 268 k/mm3 () 02/07/2022 05:35 RDW-SD 58.6 femtoliters (High) 02/07/2022 05:35 MPV 9.9 femtoliters () 02/07/2022 05:35 Nucleated RBC (Automated) 0.0 #/100 WBC'S () 02/07/2022 05:35 Abs. NRBC 0.0 k/mm3 () 02/07/2022 05:35 Abs. Neut 6.7 k/mm3 () 02/06/2022 10:24 Abs. Lymph 1.5 k/mm3 () 02/06/2022 10:24 Abs. [place] 0.6 k/mm3 () 02/06/2022 10:24 Abs. Eo 0.5 k/mm3 (High) 02/06/2022 10:24 Abs. Baso 0.0 k/mm3 () 02/06/2022 10:24 Neut % 71.4 % () 02/06/2022 10:24 Lymph % 16.3 % () 02/06/2022 10:24 [place] % 6.7 % () 02/06/2022 10:24 Eos % 5.0 % () 02/06/2022 10:24 Baso % 0.3 % () 02/06/2022 10:24 Imm Gran 0.3 % () 02/06/2022 10:24 Abs. Imm Gran 0.0 k/mm3 () 02/06/2022 10:24 CARDIAC High Sensitivity Troponin (HSTnT) <6 ng/L () 02/06/2022 10:24 CHEM GENERAL Sodium 142 mmol/L () 02/07/2022 05:35 Potassium 4.4 mmol/L () 02/07/2022 05:35 Chloride 106 mmol/L () 02/07/2022 05:35 Bicarbonate Level 28 mmol/L () 02/07/2022 05:35 Anion Gap 8 () 02/07/2022 05:35 Glucose Level 80 mg/dL () 02/07/2022 05:35 BUN 13 mg/dL () 02/07/2022 05:35 Creatinine-Blood 0.8 mg/dL () 02/07/2022 05:35 Estimated GFR Creatinine 106 ML/MIN/1.73 M2 () 02/07/2022 05:35 Calcium 9.0 mg/dL () 02/07/2022 05:35 HEME OTHER Hold Blue Top SPECIMEN DISCARDED AFTER 4 HOURS. () 02/06/2022 10:24 VIROLOGY COVID-19 POC Result NEGATIVE () 02/06/2022 09:08 RESULT: Esophagus Barium Swallow PROCEDURE: Esophagus Barium Swallow CLINICAL INDICATION: Hx of Present Illness: : Dizzy Chest pain Nausea Pt reports doing Cocaine at 2am. Pt reports waking up and feeling dizzy with pain in her chest . Pt also c o Nausea. (02 06 22 08:47); Reason: Substernal Pain; Esophageal perforation; Clinical Question(s): Perforation; Special Instructions: Gastrograffin first, if no perforation then thin barium followed by full barium. COMPARISONS: None FLUOROSCOPY TIME: 1 minute 42 seconds minutes EXPOSURE: 469.6 uGym2 TECHNIQUE: Water-soluble and barium contrast esophagram was performed by Geronimo Henderson PA-C. FINDINGS: Strategic Debriefing Officer: Excreted contrast is noted in the right renal calyx with trace also seen on the left. Swallow: Normal oral and pharyngeal phases with no laryngeal penetration or subglottic aspiration. Esophagus: Normal in contour and mucosal appearance. No evidence of leak or perforation. Normal esophageal motility, with prompt transit of liquid barium into the stomach. No hiatal hernia. No spontaneous gastroesophageal reflux was appreciated during the study. No evidence of esophageal web, narrowing or outpouching. No esophageal obstruction. The stomach and proximal duodenum are grossly normal. Contrast promptly empties from the stomach into a nondilated duodenum. No gastric outlet obstruction. IMPRESSION: No evidence of esophageal leak or perforation. By undersigning and finalizing the report, the attending radiologist confirms he/she has personallyreviewed and interpreted the images and agrees with the description of the findings. I have personally reviewed the images and I agree with this report. RESULT: CT Chest W/ Contrast CT Chest W/ Contrast INDICATION: Hx of Present Illness: : Dizzy Chest pain Nausea Pt reports doing Cocaine at 2am. Pt reports waking up and feeling dizzy with pain in her chest . Pt also c o Nausea. (02 06 22 08:47); Reason: Pneumomediastinum; Clinical Question(s): Interstitial Alveolar Infiltration TECHNIQUE: Helical CT scan of the chest with IV contrast, formatted in 3 planes. 75 cc of [id number] was administered intravenously. Weight-based protocol was performed using automatic exposure control. CTDIvol Body: 3.00 mGy, DLP Body: 123 mGy*cm. COMPARISON: Chest CT 05/10/2018. Radiographs 02/06/2022. FINDINGS: Strategic Debriefing Officer view findings, lines and tubes: None. Trachea and airways: Patent without evidence of tracheal or endobronchial lesion. Lungs and pleura: No consolidation. A couple of 2 to 3 mm nodules in the left lung are likely significant in a patient of this age. No effusion or pneumothorax. Mediastinum and yaniv: Extensive pneumomediastinum. No mediastinal fluid collection. Unremarkable CTappearance of the esophagus. No mediastinal or hilar lymphadenopathy. Heart: Heart is normal in size. No pericardial effusion. Aorta: No aortic aneurysm. Pulmonary arteries: Normal caliber. No evidence of pulmonary embolism on this study performed without angiographic technique. Chest wall soft tissues: Subcutaneous emphysema in the bilateral supraclavicular areas extending into the right axilla. Diaphragm: Intact. Upper abdomen: No significant abnormality. Bones: No acute abnormality. IMPRESSION: Pneumomediastinum and subcutaneous emphysema as above. No mediastinal fluid collection. Given pneumomediastinum, barium swallow should be considered to assess the esophagus. Impression and Plan Cesar Perez is a 31F with history of psychogenic seizures, PTSD, depression, and polysubstance abuse for whom thoracic surgery is being consulted for pneumomediastinum. On initial evaluation in the ED afebrile, with intermittent tachycardic with stable blood pressures. EKG with evidence of RBBB and labs unremarkable. CXR with evidence of anterior pneumomediastinum. Physical exam significant for R necks crepitus. Workup for esophageal perforation completed with CT of chest with pneumomediastinum and barium swallow showing no evidence of leak. Recommendations: - No need for abx - Ok for regular diet - Follow up todays CXR - No surgical intervention needed - Medical care perp primary team - Thoracic surgery will sign off at this time. Call back with any questions or concerns. Will follow up on tests Discussed with Dr. Del Valle Thoracic Surgery [id number] * Kaleb DELAROSA, Elana Bush: PERFORM Event Display: Progress Note Hospital Authored Date: CXR unchanged. WBC count normal. Tolerating a diet. Will sign off. Please page thoracic surgery forquestions or concerns [id number] * Robin Wagner: PERFORM, SIGN, VERIFY Event Display: Progress Note Hospital Authored Date: Patient: CESAR PEREZ Age: 31 years Sex: Female : 1990 Associated Diagnoses: None Author: Robin Wagner Findings Problem Related to Alteration in Neurological : Alteration in Neurological Function/new 02/07/2022 7:00 EST Alteration in Neuro status Related to Seizure Goals & Outcomes, Neurological Lab studies/diagnostic tests within pt specific limits, Pt is safe with transfers & activities, Pt will be discharged without infection, Pt will be hemodynamically stable, Pt will be Neurologically stable, Pt will become pain free with appropriate intervention, Pt will maintain intact skin integrity, Pt will remain free from injury, Resolved problem, Goals/Ou tcomes met Interventions, Neurological Assess & monitor for seizure activity, Assess for aspiration and status epileptics, During seizure activity maintain pt safety & privacy, Initiate & maintain Seizure Precautions, Minimize seizure triggering stimuli (i.e. light, noise, pain, Post seizure: assess pt for injury/vital signs/neuro's BH Goals/Interventions, Neurological Yes Neurological, Problem Start 02/07/2022 7:54 Reviewed plan with, Neurological Patient Patient Progression, Neurological Pt progressing according to plan Comment: Neurological Pt. has a history of seizures, Seizure precautions maintained. . Narrative/Incidental (Pt. received awake and oriented x3, c/o chest pain 06/17. Pt. has a history ofseizures, bed railing padded. Seizure precautions maintained. Pt. had a seizure starting at 7:35 states she felt weird priorasted about 2 minutes. Pt. c/o headache after, back to baseline. pt. ambuated to bathroom and c/o right leg weakness. Safety measures in place, POC reviewed, MD Moffett aware. Call arroyo within reach, Purposeful rounding throughout shift. ) * Hi Roche RN: PERFORM, SIGN, VERIFY Event Display: Progress Note Hospital Authored Date: Patient: CESAR PEREZ Age: 31 years Sex: Female : 1990 Associated Diagnoses: None Author: Hi Roche RN Patient was brought into the unit on a stretcher, patient was able to ambulate to the bed and was made comfortable in bed. Patient A+O x 3. Patient oriented to the unit and taught how and when to usethe call arroyo. Patient denies any nausea, vomiting, dizziness or SOB. Patient verbalized having intermittent chest pain, and will let nurse know when she wants pain medication. On getting to the unit, patient requested something to drink but was on strict NPO, she was however given water and swabs to wet her lips, she however went against the advise of this nurse and drank the water instead when nurse/PCT left the room. Shortly after, she started screaming, this nurse went to check on her and she verbalized she was having 10/10 stabbing pain in her left upper chest, SPO2 checked, 100% on roomair, patient was advised to try breathing slowly, pain lasted about 1 to 2 minutes and subsided andshe verbalized this whole event happened after drinking the cup of water against advise given to her. informed about this event. Some hours later, patient insisted on having something to eat, patient verbalized I do not care what ever happen after I eat, i'm hungry and I take full responsibility of what happens if I eat . informed and she gave the go ahead for patient to eat but to eat slowly, patient given some snacks and told to eat slowly and inform nurse if she starts to feel chest pain and she verbalized understanding. Patient has the telemonitor on as ordered. Patient is currently in bed, call arroyo is within reach, patient told to request assistance with ambulation as needed, will continue to monitor patient. CT Chest W contrast IV * [facility]SPowerscribe , CIS S: TRANSCRIBE Bo Tomlin MD S: VERIFY Event Display: Result: Authored Date: [id number] CT Chest W/ Contrast INDICATION: Hx of Present Illness: : Dizzy Chest pain Nausea Pt reports doing Cocaine at 2am. Pt reports waking up and feeling dizzy with pain in her chest . Pt also c o Nausea. (02 06 22 08:47); Reason: Pneumomediastinum; Clinical Question(s): Interstitial Alveolar Infiltration TECHNIQUE: Helical CT scan of the chest with IV contrast, formatted in 3 planes. 75 cc of Pvooguina978 was administered intravenously. Weight-based protocol was performed using automatic exposure control. CTDIvol Body: 3.00 mGy, DLP Body: 123 mGy*cm. COMPARISON: Chest CT 05/10/2018. Radiographs 02/06/2022. FINDINGS: Strategic Debriefing Officer view findings, lines and tubes: None. Trachea and airways: Patent without evidence of tracheal or endobronchial lesion. Lungs and pleura: No consolidation. A couple of 2 to 3 mm nodules in the left lung are likely significant in a patient of this age. No effusion or pneumothorax. Mediastinum and yaniv: Extensive pneumomediastinum. No mediastinal fluid collection. Unremarkable CTappearance of the esophagus. No mediastinal or hilar lymphadenopathy. Heart: Heart is normal in size. No pericardial effusion. Aorta: No aortic aneurysm. Pulmonary arteries: Normal caliber. No evidence of pulmonary embolism on this study performed without angiographic technique. Chest wall soft tissues: Subcutaneous emphysema in the bilateral supraclavicular areas extending into the right axilla. Diaphragm: Intact. Upper abdomen: No significant abnormality. Bones: No acute abnormality. IMPRESSION: Pneumomediastinum and subcutaneous emphysema as above. No mediastinal fluid collection. Given pneumomediastinum, barium swallow should be considered to assess the esophagus. WSN: [id number] Ordering Physician: Mark Correia Dictated By: Bo Tomlin MD Dictated Date/Time: 02/06/22 12:41 p Reviewed By: Bo Tomlin MD Signed By: Bo Tomlin MD Signed Date/Time: 02/06/22 12:41 pm Transcribed By: KARIE Transcribed Date/Time: 02/06/22 12:31 pm RF Esophagus Views W barium contrast PO * [facility]SPowerscribe , VARUN S: TRANSCRIBE Moustapha Casillas MD P: VERIFY Wallace Montes: SIGN Event Display: Result: Authored Date: [id number] PROCEDURE: Esophagus Barium Swallow CLINICAL INDICATION: Hx of Present Illness: : Dizzy Chest pain Nausea Pt reports doing Cocaine at 2am. Pt reports waking up and feeling dizzy with pain in her chest . Pt also c o Nausea. (02 06 22 08:47); Reason: Substernal Pain; Esophageal perforation; Clinical Question(s): Perforation; Special Instructions: Gastrograffin first, if no perforation then thin barium followed by full barium. COMPARISONS: None FLUOROSCOPY TIME: 1 minute 42 seconds minutes EXPOSURE: 469.6 uGym2 TECHNIQUE: Water-soluble and barium contrast esophagram was performed by Geronimo Henderson PA-C. FINDINGS: Strategic Debriefing Officer: Excreted contrast is noted in the right renal calyx with trace also seen on the left. Swallow: Normal oral and pharyngeal phases with no laryngeal penetration or subglottic aspiration. Esophagus: Normal in contour and mucosal appearance. No evidence of leak or perforation. Normal esophageal motility, with prompt transit of liquid barium into the stomach. No hiatal hernia. No spontaneous gastroesophageal reflux was appreciated during the study. No evidence of esophageal web, narrowing or outpouching. No esophageal obstruction. The stomach and proximal duodenum are grossly normal. Contrast promptly empties from the stomach into a nondilated duodenum. No gastric outlet obstruction. IMPRESSION: No evidence of esophageal leak or perforation. By undersigning and finalizing the report, the attending radiologist confirms he/she has personallyreviewed and interpreted the images and agrees with the description of the findings. I have personally reviewed the images and I agree with this report. WSN: [id number] Ordering Physician: Gabriel Garcia Dictated By: Wallace Montes Dictated Date/Time: 02/06/22 4:47 pm Reviewed By: Moustapha Casillas MD Signed By: Moustapha Casillas MD Signed Date/Time: 02/06/22 4:52 pm Transcribed By: KARIE Transcribed Date/Time: 02/06/22 2:17 pm Patient Care team information Care Team Personnel Name: Mendy Spicer RN Position: S RN Member Role: Primary Care Nurse Name: Ashley Fields RN Position: S W/ Natalie Member Role: Primary Care Nurse Name: Keith Stacy MD Position: [facility] ORACLE TECHNICAL DEVELOPER MD Member Role: Lifetime ORACLE TECHNICAL DEVELOPER Physician Address: Address: [address] [place] [address]- [place] Name: Shabana Soto MD, I Position: [facility] Primary Care Physician Member Role: PCP Address: Address: [address] [place] [address]- [place] Name: Robin Wagner Position: [facility] RN Member Role: Primary Care Nurse Name: Justin Francis RN Position: [facility] RN Member Role: Primary Care Nurse Name: Laya Montes RN Position: [facility] ED [facility] MD Name: Leona Jones MD Position: [facility] Resident Member Role: ED Resident Address: Address: [address] [place] [address] [place] [address]- [place] Name: Neda Villavicencio RN Position: [facility] ED RN W/OE and Tasks Member Role: Patient Care Provider Name: Patricia Talamantes Position: [facility] ED TA [facility] Member Role: Financial Representative Care Team Related Persons Name: MENDEL MCKEON Address: home [address] [place] [address] Name: GIANA LAMAS Address: home [address] [place] [address] Name: ROSHNI PEREZ Address: [place] [address] Name: SINDHU SCHRADER Address: home [address] [place] [address] Name: CRAIG VACA Address: home [address] [place] [address]
--- OUTSIDE RECORDS SUMMARY | 2022-07-04 14:37 | XMS_ITS | Continuity of Care Document ---
Author Name Unknown Organization [facility] Address [address] [place] [address]- Care Team Providers Care Biztalk Developer Name Role Phone Charles LANG, Shabana Joe Primary Care Physician [phone] [facility]counter [facility] Date[facility]s): 04/21/20 - 05/21/[address] [address]- Allergies, Adverse Reactions, Alerts Substance Reaction Severity [...] 06/15/1912:44:37 EDT, Aerosol, Route to Pharmacy Electronically, [id number], [facility]/pharmacy #[id number], Compound Start Date: 06/15/18 Status: Ordered [...] [id number] Partial fill upon patient request if the prescription is for a schedule II opioid drug... Start Date: 03/20/20 Status: Ordered fluticasone 50 mcg/inh nasal spray 1 sprays, Nares, Both, 2 times a day, # 16 Gm, 0 Refills, Maintenance, 07/27/19 19:54:00 EDT, [place], [facility]/pharmacy #[id number], 1 sprays Nares, Both 2 times a day, 174, cm, 12/09/18 8:31:00 EDT, Height, 50,kg, 04/10/19 4:52:00 EST, Dry Weight Start Date: 07/27/19 Status: Ordered ibuprofen 600 mg oral tablet 600 mg, 1, tablet, By Mouth, Every 8 hours, # 90 tablet, Refills 2, Tot. Refills 2, Maintenance, 03/05/19 3:09:00 EST, Route to Pharmacy Electronically, [facility]/pharmacy #[id number], 174, cm, 12/09/18 8:31:00 EDT, Height, 52.7, kg, 10/26/18 15:15:00 EDT, Dry We... Start Date: 03/05/19 Status: Ordered loratadine 10 mg oral tablet 10 mg, 1, tablet, By Mouth, Daily, # 30 tablet, Refills 0, Tot. Refills 0, Maintenance, 07/27/19 19:56:00 EDT, Route to Pharmacy Electronically, [facility]/pharmacy #[id number], 174, cm, 12/09/18 8:31:00 EDT, Height, [...] MESH BARD 3X6IN 7.5X15CM - B SUSANNA ([id number]) 1 [address] Unknown ANJELICA:No Information Assigning Authority: FDA
--- OUTSIDE RECORDS SUMMARY | 2022-07-04 14:37 | XMS_ITS | Continuity of Care Document ---
Author Name Unknown Organization [facility] Address [address] [place] [address]- Care Team Providers Care Field Hockey And Lacrosse Coach Name Role Phone Charles LANG, Shabana Joe Primary Care Physician [facility] Date(s): 08/18/20 - 09/17/[address] [address]- Allergies, Adverse Reactions, Alerts Substance Reaction Severity [...] 06/15/1912:44:37 EDT, Aerosol, Route to Pharmacy Electronically, [id number], [facility]/pharmacy #[id number], Compound Start Date: 06/15/18 Status: Ordered [...] 9:28:00 EST, Route to Pharmacy Electronically, [facility]/pharmacy #[id number], Partial fill upon patient request if the prescription is for a schedule II opioid drug... Start Date: 03/20/20 Status: Ordered fluticasone 50 mcg/inh nasal spray 1 sprays, Nares, Both, 2 times a day, # 16 Gm, 0 Refills, Maintenance, 07/27/19 19:54:00 EDT, [place], [facility]/pharmacy #[id number], 1 sprays Nares, Both 2 times a day, 174, cm, 12/09/18 8:31:00 EDT, Height, 50,kg, 04/10/19 4:52:00 EST, Dry Weight Start Date: 07/27/19 Status: Ordered ibuprofen 600 mg oral tablet 600 mg, 1, tablet, By Mouth, Every 8 hours, # 90 tablet, Refills 2, Tot. Refills 2, Maintenance, 03/05/19 3:09:00 EST, Route to Pharmacy Electronically, [facility]/pharmacy #[id number], 174, cm, 12/09/18 8:31:00 EDT, Height, 52.7, kg, 10/26/18 15:15:00 EDT, Dry We... Start Date: 03/05/19 Status: Ordered loratadine 10 mg oral tablet 10 mg, 1, tablet, By Mouth, Daily, # 30 tablet, Refills 4, Tot. Refills 4, Maintenance, 07/20/20 10:21:00 EDT, Route to Pharmacy Electronically, [facility]/pharmacy #[id number], 174, cm, 07/20/20 9:36:00 EDT, Height, [...] 0 Refills, Maintenance, 08/19/20 21:01:00 EDT, Tablet, [facility]/pharmacy #[id number], Partial fill upon patient request if [...] MESH BARD 3X6IN 7.5X15CM - B SUSANNA ([id number]) 1 [address] Unknown ANJELICA:No Information Assigning Authority: FDA
--- OUTSIDE RECORDS SUMMARY | 2022-07-04 14:38 | XMS_ITS | Continuity of Care Document ---
Author Name Unknown Organization [facility] ter Address [address] [place] [address]- Care Team Providers Care Bow Maker Production Name Role Phone Shabana Soto MD, I Primary Care Physician [facility]counter [facility] Date(s): 04/29/22 - 04/29/[address] [address]- Discharge Disposition: A-D/C Home Attending Physician: Adelaide Pedroza MD Admitting Physician: Adelaide Pedroza MD Referring Physician: Not on Staff, Referring [...] 10/30/21 15:13:00 EDT, Route to Pharmacy Electronically, [facility]/pharmacy #[id number],Partial fill upon patient request if the prescripti... Start Date: 10/30/21 Status: Ordered albuterol CFC free 90 mcg/inh inhalation aerosol 2, puffs, Inhalation, Every 6 hours, PRN, # 1 each, Refills 11, Tot. Refills 11, Maintenance, 10/10/21 9:46:00 EDT, Aerosol, Route to Pharmacy Electronically, [id number], [place], [place] - [id number], 173, c... Start Date: 10/10/21 Stop Date: [...] 05/26/22 15:21:00 EDT, 04/28/22 15:18:00 EST, [place], [facility], Partial fill upon patient request if the prescription is for a schedule II opioid drug., 1 patch Topically Daily, 17... Start Date: 04/28/22 Stop Date: 05/26/22 Status: Ordered predniSONE 5 mg oral tablet 1 tablet = 5 mg, By Mouth, Daily, # 5 tablet, 0 Refills, Maintenance, 04/29/22 13:40:00 EST, Tablet, [facility]/pharmacy #[id number], Partial fill upon [...] Exam Date Time Procedure Performing Provider Status 04/29/22 12:05 PM Chest 2 Views Frontal and Lat Stefany Christine i; Auth (Verified) Notes: (Chest 2 Views Frontal and Lat) Reason For Exam: Shortness of Breath RESULT: Chest 2 Views Frontal and Lat Chest 2 Views Frontal and Lat Hx of Present Illness: SOB on and off for about a week. Left ama friday bc she was too tired . inhaler not helping.; Reason: Shortness of Breath; Clinical Question(s): CHF COMPARISON: Multiple prior examinations the most recent dated 09/21/2022. FINDINGS: LINES AND TUBES: None. LUNGS AND PLEURA: Clear lungs. Normal pulmonary vascularity. No pleural effusion. No pneumothorax. HEART, MEDIASTINUM AND TALI: Heart is normal in size. Normal mediastinal and hilar contour. BONES AND SOFT TISSUES: No acute abnormality. IMPRESSION: No acute abnormality. WSN: [id number] Ordering Physician: Lorraine Metcalf Dictated By: David Acevedo MD, V Dictated Date/Time: 04/29/22 12:07 p Reviewed By: David Acevedo MD, V Signed By: David Acevedo MD, V Signed Date/Time: 04/29/22 12:07 pm Transcribed By: KARIE Transcribed Date/Time: 04/29/22 12:07 pm Vital Signs Most recent to oldest [Reference Range]: 1 2 3 Weight 49.5 kg (04/29/22 3:15 PM) 49.5 kg (04/29/22 10:42 AM) 49.5 kg (04/29/22 9:33 AM) Oxygen Saturation [94-100 %] 98 % (04/29/22 3:15 PM) 98 % (04/29/22 9:33 AM) Pulse Rate [55-90 bpm] 71 bpm (04/29/22 3:15 PM) 96 bpm *H* (04/29/22 9:33 AM) Blood Pressure [90-138/55-84 mm Hg] 100/62mm Hg (04/29/22 3:15 PM) 104/65mm Hg (04/29/22 9:33 AM) Respiratory Rate [16-30 br/min] 16 br/min (04/29/22 3:15 PM) 17 br/min (04/29/22 9:33 AM) Temperature [96.8-100.4 DegF] 97.7 DegF (04/29/22 3:15 PM) 97.6 DegF (04/29/22 9:33 AM) Mode of Delivery (Oxygen) Room air (04/29/22 3:15 PM) Room air (04/29/22 9:33 AM) Blood pressure sites Arm, right (04/29/22 3:15 PM) Arm, left (04/29/22 9:33 AM) Temperature Route Oral (04/29/22 3:15 PM) Oral (04/29/22 9:33 AM) Weight Obtained Via Patient/family state d (04/29/22 9:33 AM) Social History Social History Type Response [...] MRI Safety Implantable Status Assigning Authority Unknown [id number] Unknown 10/04/21 Unknown Unknown Active Unknown Note * Tea LANG, Lorraine Villegas: PERFORM Event Display: Patient Education Leaflets Authored Date: [id number] Asthma (Adult) ?? [id number] Asthma (Adult) Asthma is a disease where [...] consciousness ?? Last Reviewed Date: 2018 ?? [id number] [employer]. All rights reserved. This information is not intended as a substitute for professional medical care. Always follow your healthcare professional's instructions. ?? * [facility]SPowerscribe , CIS S: TRANSCRIBE David Acevedo MD, V: VERIFY Event Display: Result: Authored Date: [id number] Chest 2 Views Frontal and Lat Hx of Present Illness: SOB on and off for about a week. Left ama friday bc she was too tired . inhaler not helping.; Reason: Shortness of Breath; Clinical Question(s): CHF COMPARISON: Multiple prior examinations the most recent dated 09/21/2022. FINDINGS: LINES AND TUBES: None. LUNGS AND PLEURA: Clear lungs. Normal pulmonary vascularity. No pleural effusion. No pneumothorax. HEART, MEDIASTINUM AND TALI: Heart is normal in size. Normal mediastinal and hilar contour. BONES AND SOFT TISSUES: No acute abnormality. IMPRESSION: No acute abnormality. WSN: [id number] Ordering Physician: Lorraine Metcalf Dictated By: David Acevedo MD, V Dictated Date/Time: 04/29/22 12:07 p Reviewed By: David Acevedo MD, V Signed By: David Acevedo MD, V Signed Date/Time: 04/29/22 12:07 pm Transcribed By: KARIE Transcribed Date/Time: 04/29/22 12:07 pm Patient Care team information Care Team Personnel Name: Mendy Spicer RN Position: [facility] RN Member Role: Primary Care Nurse Name: Shiela Masy RN Position: S RN Member Role: Primary Care Nurse Name: Ashley Fields RN Position: S MR W/ Natalie Member Role: Primary Care Nurse Name: Keith Stacy MD Position: [facility] VERIFICATION ENGINEER MD Member Role: Lifetime VERIFICATION ENGINEER Physician Address: Address: [address] [place] [address]- Name: Shabana Soto MD, I Position: [facility] Primary Care Physician Member Role: PCP Address: Address: [address] [place], [place] - Name: Robin Wagner Position: [facility] RN Member Role: Primary Care Nurse Name: Justin Francis RN Position: [facility] RN Member Role: Primary Care Nurse Name: Laya Montes RN Position: [facility] RN Member Role: Primary Care Nurse Name: Alice Juarez RN Position: [facility] RN Member Role: Primary Care Nurse Name: Fela Garcia RN Position: [facility] ED RN W/OE and Tasks Member Role: Primary Care Nurse Name: Anay Rouse RN Position: [facility] RN Member Role: Primary Care Nurse Name: Jennifer Weaver RN Position: [facility] RN Member Role: Primary Care Nurse Name: Roxana Young RN Position: [facility] RN Member Role: Primary Care Nurse Name: Megan Grant RN Position: [facility] ED RN W/OE and Tasks Member Role: Primary Care Nurse Name: Eliane Vo RN Position: [facility] RN Member Role: Primary Care Nurse Name: Neda Hernandez RN Position: [facility] PCO RN Member Role: Primary Care Nurse Name: Sixto Bro Position: [facility] ED TA [facility] Name: Luisa Goff RN Position: [facility] ED RN W/OE and Tasks Member Role: Patient Care Provider Name: Adelaide Pedroza MD Position: [facility] ED Medicine MD Member Role: Admitting Physician Address: Address: [address] [place] [address] Emergency Medicine [place], [place] - Name: Lorraine Metcalf MD Position: [facility] Resident Member Role: Resident Address: Address: [address] [place] [address] Dept Of Anesthesiology [place], [place] - Care Team Related Persons Name: MENDEL MCKEON Address: home [address] [place] [address] Name: GIANA LAMAS Address: home [address] [place] [address] Name: ROSHNI JUÁREZ Address: [place] [address] Name: SINDHU SCHRADER Address: home [address] [place] [address] Name: CRAIG VACA Address: home [address] [place] [address]
--- OUTSIDE RECORDS SUMMARY | 2022-07-04 14:38 | XMS_ITS | Continuity of Care Document ---
Author Name Unknown Organization [facility] Address [address] [place] [address]- Care Team Providers Care Cardroom Manager Name Role Phone Charles LANG, Shabana Joe Primary Care Physician [facility]): 07/23/21 - 08/22/[address] [address]- Allergies, Adverse Reactions, Alerts Substance Reaction Severity [...] 06/15/1912:44:37 EDT, Aerosol, Route to Pharmacy Electronically, [id number], [facility]/pharmacy #[id number], Compound Start Date: 06/15/18 [...] Gm, 0 Refills, Maintenance, 07/27/19 19:54:00 EDT, [place], [facility]/pharmacy #[id number], 1 sprays Nares, Both 2 times a day, 174, cm, 12/09/18 8:31:00 EDT, Height, 50,kg, 04/10/19 4:52:00 EST, Dry Weight Start Date: 07/27/19 Status: Ordered ibuprofen 600 mg oral tablet 600 mg, 1, tablet, By Mouth, Every 8 hours, # 90 tablet, Refills 2, Tot. Refills 2, Maintenance, 03/05/19 3:09:00 EST, Route to Pharmacy Electronically, [facility]/pharmacy #[id number], 174, cm, 12/09/18 8:31:00 EDT, Height, 52.7, kg, 10/26/18 15:15:00 EDT, Dry We... Start Date: 03/05/19 Status: Ordered loratadine 10 mg oral tablet 10 mg, 1, tablet, By Mouth, Daily, # 30 tablet, Refills 4, Tot. Refills 4, Maintenance, 07/20/20 10:21:00 EDT, Route to Pharmacy Electronically, [facility]/pharmacy #[id number], 174, cm, 07/20/20 9:36:00 EDT, Height, 50.1, kg, 10/14/19 23:21:00 EDT, Dry Weight Start Date: 07/20/20 Stop Date: 12/17/20 Status: Ordered meclizine 25 mg oral tablet 1 tablet = 25 mg, By Mouth, 2 times a day, # 10 tablet, 0 Refills, Acute 07/30/22 15:45:00 EDT, 07/29/21 15:45:00 EDT, Tablet, [facility]/pharmacy #[id number], Partial fill upon patient request if the [...] MESH BARD 3X6IN 7.5X15CM - B SUSANNA ([id number]) 1 [address] 29 Unknown ANJELICA:No Information Assigning Authority: FDA
--- OUTSIDE RECORDS SUMMARY | 2022-07-04 14:38 | XMS_ITS | Continuity of Care Document ---
Author Name Unknown Organization [facility] Address [address] [place] [address]- Care Team Providers Care Bark Grinder Name Role Phone Charles LANG, Shabana Joe Primary Care Physician Encounter [facility] Date(s): 05/15/22 - 06/14/[address] [address]- Allergies, Adverse Reactions, Alerts Substance Reaction Severity [...] 15:13:00 EDT, Route to Pharmacy Electronically, [facility]/pharmacy #[id number],Partial fill upon patient request if the prescripti... Start Date: 10/30/21 Status: Ordered albuterol CFC free 90 mcg/inh inhalation aerosol 2, puffs, Inhalation, Every 6 hours, PRN, # 1 each, Refills 11, Tot. Refills 11, Maintenance, 10/10/21 9:46:00 EDT, Aerosol, Route to Pharmacy Electronically, [id number], [place], [place] - [id number], 173, c... Start Date: 10/10/21 Stop Date: 10/05/22 Status: Ordered dicyclomine 20 mg oral tablet 1 tablet = 20 mg, By Mouth, 3 times a day, For stomach cramping., # 21 tablet, 0 Refills, Maintenance, 05/24/22 11:58:00 EDT, Tablet, [facility]/pharmacy #[id number], Partial fill upon patient request [...] 05/26/22 8:45:00 EDT, Route to Pharmacy Electronically, [facility]/pharmacy #[id number], Partial fill upon patient request if the prescription is for a schedule II opio... Start Date: 05/26/22 Status: Ordered famotidine 20 mg oral tablet 20 mg, 1, tablet, By Mouth, 2 times a day, # 180 tablet, Refills 0, Tot. Refills 0, Maintenance, 05/26/22 9:05:00 EDT, Route to Pharmacy Electronically, [facility]/pharmacy #1130, Partial fill upon patient request if the prescription is for a schedule II opi... Start Date: 05/26/22 Status: Ordered omeprazole 40 mg oral enteric coated capsule 1 capsule = 40 mg, By Mouth, Daily, For abdominal pain/ stomach acid/ reflux, # 14 capsule, 0 Refills, Maintenance, 05/24/22 11:59:00 EDT, EC Capsule, [facility]/pharmacy #1130, Partial fill upon patient request if the prescription is for a schedule II opioi... Start Date: 05/24/22 Stop Date: 06/07/22 Status: Ordered ondansetron 4 mg oral tablet, disintegrating 1 tablet = 4 mg, By Mouth, Every 8 hours, PRN as needed for nausea/vomiting, # 12 tablet, 0 Refills, Maintenance, 05/26/22 8:45:00 EDT, DIS Tablet, [facility]/pharmacy #[id number], Partial fill upon patient request if the prescription is for a schedule II opioid d... Start Date: 05/26/22 Status: Ordered ondansetron 4 mg oral tablet, disintegrating 1 tablet = 4 mg, By Mouth, Every 8 hours, PRN as needed for nausea/vomiting, # 14 tablet, 0 Refills, Maintenance, 05/26/22 9:05:00 EDT, DIS Tablet, [facility]/pharmacy #1130, Partial fill upon patient request if the prescription is for a schedule II opioid d... Start Date: 05/26/22 Status: Ordered predniSONE 5 mg oral tablet 1 tablet = 5 mg, By Mouth, Daily, # 5 tablet, 0 Refills, Maintenance, 04/29/22 13:40:00 EST, Tablet, [facility]/pharmacy #1130, Partial fill upon patient request [...] MRI Safety Implantable Status Assigning Authority Unknown [id number] Unknown 10/04/21 Unknown Unknown Active Unknown Patient Care team information Care Team Personnel Name: Mendy Spicer RN Position: [facility] RN Member Role: Primary Care Nurse Name: Shiela Mays RN Position: [facility] RN Member Role: Primary Care Nurse Name: Ashley Fields RN Position: [facility] MR W/ Merge Member Role: Primary Care Nurse Name: Keith Stacy MD Position: [facility] MEDICARE SPECIALIST MD Member Role: [employer] MEDICARE SPECIALIST Physician Address: Address: [address] [place] [address] Name: Shabana Soto MD, I Position: [facility] Primary Care Physician Member Role: PCP Address: Address: [address] [place] [address] Name: Robin Wagner Position: [facility] RN Member Role: Primary Care Nurse Name: Justin Francis RN Position: [facility] RN Member Role: Primary Care Nurse Name: Laya Montes RN Position: [facility] RN Member Role: Primary Care Nurse Name: Alice Juarez RN Position: [facility] RN Member Role: Primary Care Nurse Name: Fela Garcia RN Position: [facility] ED RN W/OE and Tasks Member Role: Primary Care Nurse Name: Anay Rouse RN Position: [facility] RN Member Role: Primary Care Nurse Name: Jennifer Weaver RN Position: [facility] RN Member Role: Primary Care Nurse Name: Roxana Young RN Position: [facility] RN Member Role: Primary Care Nurse Name: Megan Grant RN Position: [facility] ED RN W/OE and Tasks Member Role: Primary Care Nurse Name: Eliane Vo RN Position: [facility] RN Member Role: Primary Care Nurse Name: Neda Hernandez RN Position: [facility] PCO RN Member Role: Primary Care Nurse Care Team Related Persons Name: LINDA MENDEL Address: home [address] [address] Name: GIANA LAMAS Address: home [address] [place] [address] Name: ROSHNI JUÁREZ Address: [place] [address] Name: SINDHU SCHRADER Address: home [address] [place] [address] Name: CRAIG VACA Address: home [address] [place] [address]
--- OUTSIDE RECORDS SUMMARY | 2022-07-04 14:38 | XMS_ITS | Continuity of Care Document ---
Author Name Unknown Organization [facility] Address [address] [place] [address]- Care Team Providers Care Lubricating Machine Tender Name Role Phone Charles LANG, Shabana Joe Primary Care Physician Encounter [facility] Date(s): 11/10/20 - 12/10/[address] [address]- Allergies, Adverse Reactions, Alerts Substance Reaction Severity [...] 06/15/1912:44:37 EDT, Aerosol, Route to Pharmacy Electronically, [id number], [facility]/pharmacy #[id number], Compound Start Date: 06/15/18 [...] 03/20/20 9:28:00 EST, Route to Pharmacy Electronically, [facility]/pharmacy #[id number], Partial fill upon patient request if the prescription is for a schedule II opioid drug... Start Date: 03/20/20 Status: Ordered fluticasone 50 mcg/inh nasal spray 1 sprays, Nares, Both, 2 times a day, # 16 Gm, 0 Refills, Maintenance, 07/27/19 19:54:00 EDT, [place], [facility]/pharmacy #[id number], 1 sprays Nares, Both 2 times a day, 174, cm, 12/09/18 8:31:00 EDT, Height, 50,kg, 04/10/19 4:52:00 EST, Dry Weight Start Date: 07/27/19 Status: Ordered ibuprofen 600 mg oral tablet 600 mg, 1, tablet, By Mouth, Every 8 hours, # 90 tablet, Refills 2, Tot. Refills 2, Maintenance, 03/05/19 3:09:00 EST, Route to Pharmacy Electronically, [facility]/pharmacy #[id number], 174, cm, 12/09/18 8:31:00 EDT, Height, 52.7, kg, 10/26/18 15:15:00 EDT, Dry We... Start Date: 03/05/19 Status: Ordered loratadine 10 mg oral tablet 10 mg, 1, tablet, By Mouth, Daily, # 30 tablet, Refills 4, Tot. Refills 4, Maintenance, 07/20/20 10:21:00 EDT, Route to Pharmacy Electronically, [facility]/pharmacy #[id number], 174, cm, 07/20/20 9:36:00 [...] 0 Refills, Maintenance, 08/19/20 21:01:00 EDT, Tablet, [facility]/pharmacy #[id number], Partial fill upon patient [...] MESH BARD 3X6IN 7.5X15CM - B SUSANNA ([id number]) [address] Unknown ANJELICA:No Information Assigning Authority: FDA
--- OUTSIDE RECORDS SUMMARY | 2022-07-04 14:38 | XMS_ITS | Continuity of Care Document ---
Author Name Unknown Organization [facility] Address [address] [place] [address]- Care Team Providers Care Delivery Recruiter Name Role Phone Charles LANG, Shabana Joe Primary Care Physician Encounter [facility] Date(s): 03/21/22 - 04/20/[address] [address]- Allergies, Adverse Reactions, Alerts Substance Reaction Severity [...] EDT, Route to Pharmacy Electronically, [facility]/pharmacy #[id number],Partial fill upon patient request if the prescripti... Start Date: 10/30/21 Status: Ordered albuterol CFC free 90 mcg/inh inhalation aerosol 2, puffs, Inhalation, Every 6 hours, PRN, # 1 each, Refills 11, Tot. Refills 11, Maintenance, 10/10/21 9:46:00 EDT, Aerosol, Route to Pharmacy Electronically, [id number], [place], [place] - [phone], 173, c... Start Date: 10/10/21 Stop Date: [...] MRI Safety Implantable Status Assigning Authority Unknown [id number] Unknown 10/04/21 Unknown Unknown Active Unknown Patient Care team information Care Team Personnel Name: Mendy Spicer RN Position: [facility] RN Member Role: Primary Care Nurse Name: Ashley Fields RN Position: S MR W/ Merge Member Role: Primary Care Nurse Name: Keith Stacy MD Position: [facility] DEPLOYMENT MANAGER MD Member Role: [employer]etime DEPLOYMENT MANAGER Physician Address: Address: [address] [place] [address]- [place] Name: Shabana Soto MD, I Position: [facility] Primary Care Physician Member Role: PCP Address: Address: [address] [place] [address]- [place] Name: Robin Wagner Position: [facility] RN Member Role: Primary Care Nurse Name: Justin Francis RN Position: [facility] RN Member Role: Primary Care Nurse Name: Laya Montes RN Position: [facility] RN Member Role: Primary Care Nurse Name: Alice Juarez RN Position: [facility] RN Member Role: Primary Care Nurse Name: Fela Garcia RN Position: [facility] ED RN W/OE and Tasks Member Role: Primary Care Nurse Name: Anay Rouse RN Position: [facility] RN Member Role: Primary Care Nurse Name: Jennifer Weaver RN Position: [facility] RN Member Role: Primary Care Nurse Name: Megan Grant RN Position: [facility] ED RN W/OE and Tasks Member Role: Primary Care Nurse Name: Eliane Vo RN Position: [facility] RN Member Role: Primary Care Nurse Name: Neda Hernandez RN Position: [facility] PCO RN Member Role: Primary Care Nurse Care Team Related Persons Name: MENDEL MCKEON Address: home [address], [place] [address] Name: GIANA LAMAS Address: home [address] [place] [address] Name: ROSHNI JUÁREZ Address: [place] [address] Name: SINDHU SCHRADER Address: home [address] [place] [address] Name: CRAIG VACA Address: home [address] [place] [address]
--- OUTSIDE RECORDS SUMMARY | 2022-07-04 14:38 | XMS_ITS | Continuity of Care Document ---
Author Name Unknown Organization [facility] ter Address [address] [place] [address]- Care Team Providers Care Hvac R Instructor Name Role Phone Shabana Soto MD, I Primary Care Physician [phone] Encounter [facility] Date(s): 07/28/21 - 07/29/[address] [address]- Encounter Diagnosis Concussion(Final) - 07/29/21 Discharge Disposition: A-D/C Home Attending Physician: Alejandra Andrew MD Admitting Physician: Alejandra Andrew MD Referring Physician: Not on Staff, Referring [...] 06/15/1912:44:37 EDT, Aerosol, Route to Pharmacy Electronically, [id number], [facility]/pharmacy #[id number], Compound Start Date: [...] to Pharmacy Electronically, [facility]/pharmacy #[id number], Partial fill upon patient request if the prescription is for a schedule II opioid drug... Start Date: 03/20/20 Status: Ordered fluticasone 50 mcg/inh nasal spray 1 sprays, Nares, Both, 2 times a day, # 16 Gm, 0 Refills, Maintenance, 07/27/19 19:54:00 EDT, [place], [facility]/pharmacy #[id number], 1 sprays Nares, [...] 07/30/22 15:45:00 EDT, 07/29/21 15:45:00 EDT, Tablet, [facility]/pharmacy #[id number], Partial fill upon patient request [...] Refills, Maintenance, 08/19/20 21:01:00 EDT, Tablet, [facility]/pharmacy #[id number], Partial fill upon patient request [...] Range]: 1 2 3 Height 173 cm (07/29/21 4:22 PM) 173 cm (07/29/21 1:07 PM) 173 cm (07/29/21 4:05 AM) Weight 48.4 kg (07/29/21 4:22 PM) 48.4 kg (07/29/21 1:07 PM) 48.4 kg (07/29/21 4:05 AM) Oxygen Saturation [94-100 %] 98 % (07/29/21 4:22 PM) 100 % (07/29/21 1:07 PM) 100 % (07/29/21 9:24 AM) Pulse Rate [55-90 bpm] 60 bpm (07/29/21 4:22 PM) 56 bpm (07/29/21 1:07 PM) 85 bpm (07/29/21 9:24 AM) Body Mass Index [18.5-24.99] 16.17 *L* (07/29/21:22 PM) 16.17 *L* (07/29/21: PM) 16.17 *L* (07/29/21 12:19 AM) Blood Pressure [90-138/55-84 mm Hg] 110/61mm Hg (07/29/21:22 PM) 121/75mm Hg (07/29/21:07 PM) 121/86mm Hg (07/29/21 9:24 AM) Respiratory Rate [16-30 br/min] 20 br/min (07/29/21: PM) 16 br/min (07/29/21 1:07 PM) 18 br/min (07/29/21 9:24 AM) Temperature [96.8-100.4 DegF] 97.9 DegF (07/29/21 1: PM) 97.5 DegF (07/29/21 9:24 AM) 97.8 DegF (07/29/21 6:45 AM) Mode of Delivery (Oxygen) Room air (07/29/21: PM) Room air (07/29/21 1:07 PM) Room air (07/29/21 9:24 AM) Blood pressure sites Arm, left (07/29/21 4:22 PM) Arm, right (07/29/21: PM) Arm, right (07/29/21 9:24 AM) Temperature Route Oral (07/29/21 1:07 PM) Oral (07/29/21 9:24 AM) Oral (07/29/21 4:41 AM) Dry Weight 48.4 kg (07/29/21:22 PM) 48.4 kg (5/22/22 1:07 PM) 48.4 kg (07/29/21 4:05 AM) Weight Obtained Via Standing scale (07/29/21 12:19 AM) Dry Weight Obtained Via Standing scale (07/29/21 12:19 AM) Social History Social History Type Response Smoking Status Current every day yolis frazier; Type: Cigarettes; Other: 3 cigarettes a day; entered on: 10/10/17 Sex Medical Equipment Implanted Date:02/25/18Target Site:Groin Right Description Quantity MRI Company Model MESH BARD 3X6IN 7.5X15CM - B SUSANNA ([id number]) 1 [address] 29 Unknown ANJELICA:No Information Assigning Authority: FDA
--- OUTSIDE RECORDS SUMMARY | 2022-07-04 14:38 | XMS_ITS | Continuity of Care Document ---
Author Name Unknown Organization [facility] Address [address] [place] [address]- Care Team Providers Care Dietician Name Role Phone Charles LANG, Shabana Joe Primary Care Physician [phone] Encounter [facility] R [id number] Date(s): 07/20/20 - 08/19/[address] [address]- Attending Physician: Srinivasa Mendieta Admitting Physician: Srinivasa [...] 06/15/1912:44:37 EDT, Aerosol, Route to Pharmacy Electronically, [id number], [facility]/pharmacy #[id number], Compound [...] Gm, 0 Refills, Maintenance, 07/27/19 19:54:00 EDT, [place], [facility]/pharmacy #[id number], 1 [...] MESH BARD 3X6IN 7.5X15CM - B SUSANNA ([id number]) 1 [address] 29 Unknown ANJELICA:No Information Assigning Authority: FDA
--- OUTSIDE RECORDS SUMMARY | 2022-07-04 14:38 | XMS_ITS | Continuity of Care Document ---
Author Name Unknown Organization [facility] Address [address] [place] [address]- Care Team Providers Care Inventory Control Coordinator Name Role Phone Charles LANG, Shabana Joe Primary Care Physician Encounter [facility] Date(s): 12/14/19 - 01/13/[address] [address]- Allergies, Adverse Reactions, Alerts Substance Reaction Severity [...] 06/15/1912:44:37 EDT, Aerosol, Route to Pharmacy Electronically, [id number], [facility]/pharmacy #[id number], Compound Start [...] Gm, 0 Refills, Maintenance, 07/27/19 19:54:00 EDT, [place], [facility]/pharmacy #[id number], 1 sprays [...] 07/27/19 19:56:00 EDT, [facility] Electronically, [facility] MESH BARD 3X6IN 7.5X15CM - B SUSANNA ([id number]) 1 [address] 29 Unknown ANJELICA:No Information Assigning Authority: FDA
--- OUTSIDE RECORDS SUMMARY | 2022-07-04 14:38 | XMS_ITS | Continuity of Care Document ---
Author Name Unknown Organization [facility] Address [address] [place] [address]- Care Team Providers Care Fish Hatchery Man Name Role Phone Charles LANG, Shabana Joe Primary Care Physician [phone] Encounter [facility] Date(s): 08/18/20 - 09/17/[address] [address]- Allergies, Adverse Reactions, Alerts Substance Reaction Severity [...] 06/15/1912:44:37 EDT, Aerosol, Route to Pharmacy Electronically, [id number], [facility]/pharmacy #[id number], Compound Start Date: 06/15/18 Status: Ordered [...] EST, Route to Pharmacy Electronically, [facility]/pharmacy #[id number], Partial fill upon patient request if the prescription is for a schedule II opioid drug... Start Date: 03/20/20 Status: Ordered fluticasone 50 mcg/inh nasal spray 1 sprays, Nares, Both, 2 times a day, # 16 Gm, 0 Refills, Maintenance, 07/27/19 19:54:00 EDT, [place], [facility]/pharmacy #[id number], 1 sprays Nares, Both 2 times a day, 174, cm, 12/09/18 8:31:00 EDT, Height, 50,kg, 04/10/19 4:52:00 EST, Dry Weight Start Date: 07/27/19 Status: Ordered ibuprofen 600 mg oral tablet 600 mg, 1, tablet, By Mouth, Every 8 hours, # 90 tablet, Refills 2, Tot. Refills 2, Maintenance, 03/05/19 3:09:00 EST, Route to Pharmacy Electronically, [facility]/pharmacy #[id number], 174, cm, 12/09/18 8:31:00 EDT, Height, 52.7, kg, 10/26/18 15:15:00 EDT, Dry We... Start Date: 03/05/19 Status: Ordered loratadine 10 mg oral tablet 10 mg, 1, tablet, By Mouth, Daily, # 30 tablet, Refills 4, Tot. Refills 4, Maintenance, 07/20/20 10:21:00 EDT, Route to Pharmacy Electronically, [facility]/pharmacy #[id number], 174, cm, 07/20/20 9:36:00 EDT, Height, [...] 0 Refills, Maintenance, 08/19/20 21:01:00 EDT, Tablet, [facility]/pharmacy #[id number], Partial fill upon patient request if [...] MESH BARD 3X6IN 7.5X15CM - B SUSANNA ([id number]) 1 [address] 29 Unknown ANJELICA:No Information Assigning Authority: FDA
--- OUTSIDE RECORDS SUMMARY | 2022-07-04 14:38 | XMS_ITS | Continuity of Care Document ---
Author Name Unknown Organization [facility] Address [address] [place] [address]- Care Team Providers Care Volunteer Services Assistant Name Role Phone Charles LANG, Shabana Joe Primary Care Physician Encounter [facility] Date(s): 10/26/21 - 11/25/[address] [address]- Allergies, Adverse Reactions, Alerts Substance Reaction Severity [...] 9:46:00 EDT, Aerosol, Route to Pharmacy Electronically, [id number], [place], [place] - [id number], 173, c... Start Date: 10/10/21 Stop Date: 10/05/22 Status: Ordered docusate sodium 100 mg oral capsule 1 capsule = 100 mg, By Mouth, 2 times a day, PRN as needed for constipation, # 60 capsule, 0 Refills, Maintenance, 10/30/21 15:12:00 EDT, [place], [facility]/pharmacy #[id number], Partial fill upon patient request if the prescription is for a schedule II opioid dr... Start Date: 10/30/21 Status: Ordered Estrace 2 mg oral tablet 1 tablet = 2 mg, By Mouth, Daily, # 30 tablet, 0 Refills, Maintenance, 10/30/21 15:28:00 EDT, Tablet, [facility]/pharmacy #[id number], Partial fill upon [...] 10/30/21 15:12:00 EDT, Route to Pharmacy Electronically, [facility]/pharmacy #[id number], Partial fill upon patient request if the prescription is for a... Start Date: 10/30/21 Status: Ordered oxyCODONE 5 mg oral capsule 1 capsule = 5 mg, By Mouth, Every 6 hours, PRN as needed for pain, # 10 capsule, 0 Refills, Maintenance, 11/07/21 18:57:00 EDT, [place], [facility]/pharmacy #[id number], Partial fill upon [...] to Pharmacy Electronically, [facility]/pharmacy #[id number], Partial fill upon [...] MRI Safety Implantable Status Assigning Authority Unknown [id number] Unknown 10/04/21 Unknown Unknown Active Unknown Care Team Personnel Name: Shabana Soto MD, I Address: [address] [place] [address], [place] [address]-
--- OUTSIDE RECORDS SUMMARY | 2022-07-04 14:38 | XMS_ITS | Continuity of Care Document ---
Author Name Unknown Organization [facility] Address [address] [place] [address]- Care Team Providers Care Registered Nurse Bone Marrow Transplant Name Role Phone Charles LANG, Shabana Joe Primary Care Physician Encounter [facility] Date(s): 11/14/20 - 12/29/[address] [address]- Attending Physician: Olga Lidia Quezada MD Admitting [...] 06/15/1912:44:37 EDT, Aerosol, Route to Pharmacy Electronically, [id number], [facility]/pharmacy #[id number], Compound Start Date: 06/15/18 [...] Gm, 0 Refills, Maintenance, 07/27/19 19:54:00 EDT, [place], [facility]/pharmacy #4471, 1 sprays Nares, Both [...] MESH BARD 3X6IN 7.5X15CM - B SUSANNA ([id number]) 1 [address] 29 Unknown ANJELICA:No Information Assigning Authority: FDA
--- OUTSIDE RECORDS SUMMARY | 2022-07-04 14:38 | XMS_ITS | Continuity of Care Document ---
Author Name Unknown Organization [facility] Address [address] [place] [address]- Care Team Providers Care Cheerleading Coach Name Role Phone Shabana Soto MD, I Primary Care Physician [phone] Encounter [facility] Date(s): 04/19/19 - 06/23/[address] [address]- [facility] Attending Physician: Shabana Soto MD, I Admitting [...] 06/15/1912:44:37 EDT, Aerosol, Route to Pharmacy Electronically, [id number], [facility]/pharmacy #[id number], Compound Start Date: 06/15/18 Status: Ordered [...] 3:09:00 EST, Route to Pharmacy Electronically, [facility]/pharmacy #[id number], 174, cm, 12/09/18 8:31:00 EDT, Height, [...] MESH BARD 3X6IN 7.5X15CM - B SUSANNA ([id number]) 1 [address] 29 Unknown ANJELICA:No Information Assigning Authority: FDA
--- OUTSIDE RECORDS SUMMARY | 2022-07-04 14:38 | XMS_ITS | Continuity of Care Document ---
Author Name Unknown Organization [facility] Address [address] [place] [address]- Care Team Providers Care Polisher Implant Name Role Phone Charles LANG, Shabana Joe Primary Care Physician Encounter [facility] Date(s): 11/03/19 - 12/03/[address] [address]- [facility] Allergies, Adverse Reactions, Alerts Substance Reaction Severity [...] 06/15/1912:44:37 EDT, Aerosol, Route to Pharmacy Electronically, [id number], [facility]/pharmacy #[id number], Compound Start Date: [...] Gm, 0 Refills, Maintenance, 07/27/19 19:54:00 EDT, [place], [facility]/pharmacy #[id number], 1 sprays Nares, [...] MESH BARD 3X6IN 7.5X15CM - B SUSANNA ([id number]) 1 [address] 29 Unknown ANJELICA:No Information Assigning Authority: FDA
--- OUTSIDE RECORDS SUMMARY | 2022-07-04 14:38 | XMS_ITS | Continuity of Care Document ---
Author Name Unknown Organization [facility] Address [address] [place] [address]- Care Team Providers Care Landscape Painter Name Role Phone Shabana Soto MD, I Primary Care Physician [phone] Encounter [facility] [place] Date(s): 02/21/20 - 02/21/[address] [address]- Discharge Disposition: A-D/C Walkout Attending Physician: Not [...] 06/15/1912:44:37 EDT, Aerosol, Route to Pharmacy Electronically, [id number], [facility]/pharmacy #[id number], Compound Start Date: 06/15/18 [...] Gm, 0 Refills, Maintenance, 07/27/19 19:54:00 EDT, [place], [facility]/pharmacy #[id number], 1 sprays Nares, Both 2 times a day, 174, cm, 12/09/18 8:31:00 EDT, Height, 50,kg, 04/10/19 4:52:00 EST, Dry Weight Start Date: 07/27/19 Status: Ordered ibuprofen 600 mg oral tablet 600 mg, 1, tablet, By Mouth, Every 8 hours, # 90 tablet, Refills 2, Tot. Refills 2, Maintenance, 03/05/19 3:09:00 EST, Route to Pharmacy Electronically, [facility]/pharmacy #[id number], 174, cm, 12/09/18 8:31:00 EDT, Height, 52.7, kg, 10/26/18 15:15:00 EDT, Dry We... Start Date: 03/05/19 Status: Ordered loratadine 10 mg oral tablet 10 mg, 1, tablet, By Mouth, Daily, # 30 tablet, Refills 0, Tot. Refills 0, Maintenance, 07/27/19 19:56:00 EDT, Route to Pharmacy Electronically, [facility]/pharmacy #[id number], 174, cm, 12/09/18 8:31:00 [...] 2 Oxygen Saturation [94-100 %] 100 % (02/21/20 5:29 PM) 100 % (02/21/20 5:25 PM) Pulse Rate [55-90 bpm] 62 bpm (02/21/20 5:29 PM) 61 bpm (02/21/20 5:25 PM) Blood Pressure [90-138/55-84 mm Hg] 114/ 64mm Hg (02/21/20 5:29 PM) Respiratory Rate [16-30 br/min] 17 br/mi n (02/21/20 5:29 PM) Temperature [96.8-100.4 DegF] 97.6 DegF (02/21/20 5:29 PM) Mode of Delivery (Oxygen) Room air (02/21/20 5:29 PM) Room air (02/21/20 5:25 PM) Temperature Route Oral (02/21/20 5:29 PM) Social History Social History Type Response Smoking Status Current every day sm oker; Type: Cigarettes; Other: 3 cigarettes a day; entered on: 10/10/17 Sex Medical Equipment Implanted Date:02/25/18Target Site:Groin Right Description Quantity MRI Company Model MESH BARD 3X6IN 7.5X15CM - B SUSANNA ([id number]) 1 Bard Davol 29 Unknown ANJELICA:No Information Assigning Authority: FDA
--- OUTSIDE RECORDS SUMMARY | 2022-07-04 14:38 | XMS_ITS | Continuity of Care Document ---
Author Name Unknown Organization [facility] Address [address] [place] [address]- Care Team Providers Care Sales Representative Trainee Name Role Phone Charles LANG, Shabana Joe Primary Care Physician [phone] Encounter [facility] Date(s): 02/21/20 - 03/22/[address] [address]- Allergies, Adverse Reactions, Alerts Substance Reaction Severity [...] 06/15/1912:44:37 EDT, Aerosol, Route to Pharmacy Electronically, [id number], [facility]/pharmacy #[id number], Compound Start Date: [...] 03/20/20 9:28:00 EST, [id number] Partial fill upon patient request if the prescription is for a schedule II opioid drug... Start Date: 03/20/20 Status: Ordered fluticasone 50 mcg/inh nasal spray 1 sprays, Nares, Both, 2 times a day, # 16 Gm, 0 Refills, Maintenance, 07/27/19 19:54:00 EDT, [place], [facility]/pharmacy #[id number], 1 sprays Nares, [...] 07/27/19 19:56:00 EDT, Route to Pharmacy Electronically, [facility]/pharmacy #[id number], 174, cm, 12/09/18 8:31:00 EDT, Height, 50, kg, 04/10/19 4:52:00 EST, Dry Weight Start Date: 07/27/19 Status: Ordered nicotine 21 mg/24 hr transdermal film, extended release 1 patch, Topically, Daily, for 30 days, # 30 patch, 3 Refills, Acute 05/04/20 12:12:00 EST, 01/05/20 12:12:00 EDT, Patch, [facility]/pharmacy #[id number], 1 patch Topically Daily,x30 days, [...] MESH BARD 3X6IN 7.5X15CM - B SUSANNA ([id number]) 1 Bard Avalos 29 Unknown ANJELICA:No Information Assigning Authority: FDA
--- OUTSIDE RECORDS SUMMARY | 2022-07-04 14:38 | XMS_ITS | Continuity of Care Document ---
Author Name Unknown Organization [facility] Address [address] [place] [address]- Care Team Providers Care Varnish Dipper Name Role Phone Charles LANG, Shabana Joe Primary Care Physician En[place] [facility] [place] Date(s): 02/26/22 - 03/28/[address] [address]- Attending Physician: Admtr, [id number] Admitting Physician: Admtr, [id number] Referring Physician: Admtr, [...] EDT, Route to Pharmacy Electronically, [facility]/pharmacy #[id number],Partial fill upon patient request if the prescripti... Start Date: 10/30/21 Status: Ordered albuterol CFC free 90 mcg/inh inhalation aerosol 2, puffs, Inhalation, Every 6 hours, PRN, # 1 each, Refills 11, Tot. Refills 11, Maintenance, 10/10/21 9:46:00 EDT, Aerosol, Route to Pharmacy Electronically, [id number], [place], [place] - [id number], 173, c... Start Date: 10/10/21 Stop Date: [...] MRI Safety Implantable Status Assigning Authority Unknown [id number] Unknown 10/04/21 Unknown Unknown Active Unknown Note * Shauna Molina: PERFORM, SIGN, VERIFY Event Display: Patient Education/Instruction Authored Date: [id number] [facility] See Sq Clinical Summary Person Information Visit Date 03/20/2015 8:40 AM Name ASHER JUÁREZ Age 24 Years 1990 12:00 AM PCP Shabana Soto MD, I PCP Sex Female Race Black Ethnicity Non-/Non- Language Eritrean You can now view a summary of your hospital visit from the comfort of your home through a free online portal called [employer]. [employer] is a website that allows you to securely view your medical information including discharge summary, medications and follow-up visits. You can also send a secure electronic message to your doctor???s office to request appointments, renew medicationsor just ask a question. You can enroll at [email or web address] or register during your next office visit. Smoking can increase your chances of developing chronic health problems and can cause harmful effects to other family members in your house. If you smoke, you are strongly encouraged to quit. Please call the [employer] Smokers??? Helpline at 4-546-QQCJNOW (or ) or log on to [email or web address] for more information. Reason for Visit: Allergy [...] kit) , See Instructions, Intramuscular Once--then go [facility]-pt will call w/ her insurance info, [...] primary care provider, you may find a [facility] provider by calling [facility] Health Link at [phone]. For information about the plan of care including goals and instructions for your diagnosis, please see the patient education orders section of this document. Patient Visit Summary: Future Appointments: Type Location Start Finish State Return [facility] Neurology 02/21/2015 2:00 PM 02/21/2015 2:30 PM Pending Return Adult [facility] See Sq 03/20/2015 8:40 AM 03/20/2015 8:55 AM Pending Follow-Up Instructions With: Address: When: NEUROLOGY APPT 02/22/16 2P @ [address] Comments: Patient Education Materials Additional Instructions: Patient Care team information Care Team Personnel Name: Mendy Spicer RN Position: [facility] RN Member Role: Primary Care Nurse Name: Ashley Fields RN Position: [facility] MR W/ Merge Member Role: Primary Care Nurse Name: Keith Stacy MD Position: [facility] CITY DISTRIBUTION CLERK MD Member Role: [employer] CITY DISTRIBUTION CLERK Physician Address: Address: [address] [place] [address]- [place] Name: Shabana Soto MD, I Position: [facility] Primary Care Physician Member Role: PCP Address: Address: [address] [place] [address]- Name: Robin Wagner Position: [facility] RN Member Role: Primary Care Nurse Name: Justin Francis RN Position: [facility] RN Member Role: Primary Care Nurse Name: Laya Montes RN Position: [facility] RN Member Role: Primary Care Nurse Name: Alice Juarez RN Position: [facility] RN Member Role: Primary Care Nurse Name: Fela Garcia RN Position: [facility] ED RN W/OE and Tasks Member Role: Primary Care Nurse Name: Anay Rouse RN Position: [facility] RN Member Role: Primary Care Nurse Name: Jennifer Weaver RN Position: [facility] RN Member Role: Primary Care Nurse Name: Megan Grant RN Position: [facility] ED RN W/OE and Tasks Member Role: Primary Care Nurse Name: Eliane Vo RN Position: [facility] RN Member Role: Primary Care Nurse Name: Neda Hernandez RN Position: [facility] PCO RN Member Role: Primary Care Nurse Care Team Related Persons Name: MENDEL MCKEON Address: home [address] [place] [address] Name: GIANA LAMAS Address: home [address] [place] [address] Name: ROSHNI JUÁREZ Address: [place] [address] Name: SINDHU SCHRADER Address: home [address] [place] [address] Name: CRAIG VACA Address: home [address] [place] [address]
--- OUTSIDE RECORDS SUMMARY | 2022-07-04 14:38 | XMS_ITS | Continuity of Care Document ---
Author Name Unknown Organization [facility] Address [address] [place] [address]- Care Team Providers Care Special Education Educational Assistant Name Role Phone Charles LANG, Shabana Joe Primary Care Physician Encounter [facility] Date(s): 02/08/20 - 03/09/[address] [address]- Allergies, Adverse Reactions, Alerts Substance Reaction Severity [...] 06/15/1912:44:37 EDT, Aerosol, Route to Pharmacy Electronically, [id number], [facility]/pharmacy #[id number], Compound Start Date: 06/15/18 Status: [...] Gm, 0 Refills, Maintenance, 07/27/19 19:54:00 EDT, [place], [facility]/pharmacy #[id number], 1 sprays Nares, Both 2 times a day, 174, cm, 12/09/18 8:31:00 EDT, Height, 50,kg, 04/10/19 4:52:00 EST, Dry Weight Start Date: 07/27/19 Status: Ordered ibuprofen 600 mg oral tablet 600 mg, 1, tablet, By Mouth, Every 8 hours, # 90 tablet, Refills 2, Tot. Refills 2, Maintenance, 03/05/19 3:09:00 EST, Route to Pharmacy Electronically, [facility]/pharmacy #[id number], 174, cm, 12/09/18 8:31:00 EDT, Height, 52.7, kg, 10/26/18 15:15:00 EDT, Dry We... Start Date: 03/05/19 Status: Ordered loratadine 10 mg oral tablet 10 mg, 1, tablet, By Mouth, Daily, # 30 tablet, Refills 0, Tot. Refills 0, Maintenance, 07/27/19 19:56:00 EDT, Route to Pharmacy Electronically, [facility]/pharmacy #[id number], 174, cm, 12/09/18 8:31:00 EDT, [...] MESH BARD 3X6IN 7.5X15CM - B SUSANNA ([id number]) 1 Bard Davol 29 Unknown ANJELICA:No Information Assigning Authority: FDA
--- OUTSIDE RECORDS SUMMARY | 2022-07-04 14:38 | XMS_ITS | Continuity of Care Document ---
Author Name Unknown Organization [facility] Address [address] [place] [address]- Care Team Providers Care Roll Winder Name Role Phone Charles LANG, Shabana Joe Primary Care Physician [phone] Encounter [facility] Date(s): 01/30/21 - 03/01/[address] [address]- Allergies, Adverse Reactions, Alerts Substance Reaction Severity [...] 06/15/1912:44:37 EDT, Aerosol, Route to Pharmacy Electronically, [id number], [facility]/pharmacy #[id number], Compound Start Date: 06/15/18 [...] 03/20/20 9:28:00 EST, Route to Pharmacy Electronically, [facility]/pharmacy #[id number], Partial fill upon patient request if the prescription is for a schedule II opioid drug... Start Date: 03/20/20 Status: Ordered fluticasone 50 mcg/inh nasal spray 1 sprays, Nares, Both, 2 times a day, # 16 Gm, 0 Refills, Maintenance, 07/27/19 19:54:00 EDT, [place], [facility]/pharmacy #[id number], 1 sprays Nares, Both 2 times a day, 174, cm, 12/09/18 8:31:00 EDT, Height, 50,kg, 04/10/19 4:52:00 EST, Dry Weight Start Date: 07/27/19 Status: Ordered ibuprofen 600 mg oral tablet 600 mg, 1, tablet, By Mouth, Every 8 hours, # 90 tablet, Refills 2, Tot. Refills 2, Maintenance, 03/05/19 3:09:00 EST, Route to Pharmacy Electronically, [facility]/pharmacy #[id number], 174, cm, 12/09/18 8:31:00 EDT, Height, 52.7, kg, 10/26/18 15:15:00 EDT, Dry We... Start Date: 03/05/19 Status: Ordered loratadine 10 mg oral tablet 10 mg, 1, tablet, By Mouth, Daily, # 30 tablet, Refills 4, Tot. Refills 4, Maintenance, 07/20/20 10:21:00 EDT, Route to Pharmacy Electronically, [facility]/pharmacy #[id number], 174, cm, 07/20/20 9:36:00 EDT, Height, [...] 0 Refills, Maintenance, 08/19/20 21:01:00 EDT, Tablet, [facility]/pharmacy #[id number], Partial fill upon patient request if [...] MESH BARD 3X6IN 7.5X15CM - B SUSANNA ([id number]) 1 Bard Davol 29 Unknown ANJELICA:No Information Assigning Authority: FDA
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
--- OUTSIDE RECORDS SUMMARY | 2022-07-04 14:38 | XMS_ITS | Continuity of Care Document ---
Author Name Unknown Organization [facility] Address [address] [place] [address]- Care Team Providers Care Fiberglass Quality Technician Name Role Phone Charles LANG, Shabana Joe Primary Care Physician [phone] Encounter [facility] Date(s): 09/21/21 - 10/21/[address] [address]- Allergies, Adverse Reactions, Alerts Substance Reaction Severity [...] 9:46:00 EDT, Aerosol, Route to Pharmacy Electronically, [id number], [facility] [place] [place] - [id number], 173, c... Start Date: 10/10/21 Stop Date: [...] MESH BARD 3X6IN 7.5X15CM - B SUSANNA ([id number]) 1 Bard Davol 29 Unknown ANJELICA:No Information Assigning Authority: FDA
--- OUTSIDE RECORDS SUMMARY | 2022-07-04 14:38 | XMS_ITS | Continuity of Care Document ---
Author Name Unknown Organization [facility] Address [address] [place] [address]- Care Team Providers Care Community Manager Name Role Phone Charles LANG, Shabana Joe Primary Care Physician Encounter [facility] [place] Date(s): 05/20/22 - 06/19/[address] [address]- Allergies, Adverse Reactions, Alerts Substance Reaction Severity [...] 10/30/21 15:13:00 EDT, Route to Pharmacy Electronically, [facility]/pharmacy #[id number],Partial fill upon patient request if the prescripti... Start Date: 10/30/21 Status: Ordered albuterol CFC free 90 mcg/inh inhalation aerosol 2, puffs, Inhalation, Every 6 hours, PRN, # 1 each, Refills 11, Tot. Refills 11, Maintenance, 10/10/21 9:46:00 EDT, Aerosol, Route to Pharmacy Electronically, [id number], [place], [place] - [id number], 173, c... Start Date: 10/10/21 Stop Date: 10/05/22 Status: Ordered dicyclomine 20 mg oral tablet 1 tablet = 20 mg, By Mouth, 3 times a day, For stomach cramping., # 21 tablet, 0 Refills, Maintenance, 05/24/22 11:58:00 EDT, Tablet, [facility]/pharmacy #1130, Partial fill upon patient request [...] 05/26/22 8:45:00 EDT, Route to Pharmacy Electronically, [facility]/pharmacy #[id number], Partial fill upon patient request if the prescription is for a schedule II opio... Start Date: 05/26/22 Status: Ordered famotidine 20 mg oral tablet 20 mg, 1, tablet, By Mouth, 2 times a day, # 180 tablet, Refills 0, Tot. Refills 0, Maintenance, 05/26/22 9:05:00 EDT, Route to Pharmacy Electronically, [facility]/pharmacy #1130, Partial fill upon patient request if the prescription is for a schedule II opi... Start Date: 05/26/22 Status: Ordered omeprazole 40 mg oral enteric coated capsule 1 capsule = 40 mg, By Mouth, Daily, For abdominal pain/ stomach acid/ reflux, # 14 capsule, 0 Refills, Maintenance, 05/24/22 11:59:00 EDT, EC Capsule, [facility]/pharmacy #1130, Partial fill upon patient request if the prescription is for a schedule II opioi... Start Date: 05/24/22 Stop Date: 06/07/22 Status: Ordered ondansetron 4 mg oral tablet, disintegrating 1 tablet = 4 mg, By Mouth, Every 8 hours, PRN as needed for nausea/vomiting, # 12 tablet, 0 Refills, Maintenance, 05/26/22 8:45:00 EDT, DIS Tablet, [facility]/pharmacy #0488, Partial fill upon patient request if the prescription is for a schedule II opioid d... Start Date: 05/26/22 Status: Ordered ondansetron 4 mg oral tablet, disintegrating 1 tablet = 4 mg, By Mouth, Every 8 hours, PRN as needed for nausea/vomiting, # 14 tablet, 0 Refills, Maintenance, 05/26/22 9:05:00 EDT, DIS Tablet, [facility]/pharmacy #1130, Partial fill upon patient request if the prescription is for a schedule II opioid d... Start Date: 05/26/22 Status: Ordered predniSONE 5 mg oral tablet 1 tablet = 5 mg, By Mouth, Daily, # 5 tablet, 0 Refills, Maintenance, 04/29/22 13:40:00 EST, Tablet, [facility]/pharmacy #1130, Partial fill upon patient request [...] MRI Safety Implantable Status Assigning Authority Unknown [id number] Unknown 10/04/21 Unknown Unknown Active Unknown Patient Care team information Care Team Personnel Name: Mendy Spicer RN Position: [facility] RN Member Role: Primary Care Nurse Name: Shiela Mays RN Position: [facility] RN Member Role: Primary Care Nurse Name: Ashley Fields RN Position: [facility] MR W/ Merge Member Role: Primary Care Nurse Name: Keith Stacy MD Position: [facility] TEEN COUNSELOR MD Member Role: [employer] TEEN COUNSELOR Physician Address: Address: [address] [place] [address] Name: Shabana Soto MD, I Position: [facility] Primary Care Physician Member Role: PCP Address: Address: [address] [place] [address] Name: Robin Wagner Position: [facility] RN Member Role: Primary Care Nurse Name: Justin Francis RN Position: [facility] RN Member Role: Primary Care Nurse Name: Laya Montes RN Position: [facility] RN Member Role: Primary Care Nurse Name: Alice Juarez RN Position: [facility] RN Member Role: Primary Care Nurse Name: Fela Garcia RN Position: [facility] ED RN W/OE and Tasks Member Role: Primary Care Nurse Name: Anay Rouse RN Position: [facility] RN Member Role: Primary Care Nurse Name: Jennifer Weaver RN Position: [facility] RN Member Role: Primary Care Nurse Name: Roxana Young RN Position: [facility] RN Member Role: Primary Care Nurse Name: Megan Grant RN Position: [facility] ED RN W/OE and Tasks Member Role: Primary Care Nurse Name: Eliane Vo RN Position: [facility] RN Member Role: Primary Care Nurse Name: Neda Hernandez RN Position: [facility] PCO RN Member Role: Primary Care Nurse Care Team Related Persons Name: MCKEON MENDEL Address: home [address], [place] [address] Name: GIANA LAMAS Address: home [address] [place] [address] Name: ROSHNI JUÁREZ Address: [place] [address] Name: SINDHU SCHRADER Address: home [address] [place] [address] Name: CRAIG VACA Address: home [address] [place] [address]
--- OUTSIDE RECORDS SUMMARY | 2022-07-04 14:38 | XMS_ITS | Continuity of Care Document ---
Author Name Unknown Organization [facility] Address [address] [place] [address]- Care Team Providers Care Pre Sales Technical Engineer Name Role Phone Charles LANG, Shabana Joe Primary Care Physician [facility] Date(s): 08/01/20 - 08/31/[address] [address]- Allergies, Adverse Reactions, Alerts Substance Reaction Severity [...] 06/15/1912:44:37 EDT, Aerosol, Route to Pharmacy Electronically, [id number], [facility]/pharmacy #[id number], Compound Start Date: 06/15/18 [...] 03/20/20 9:28:00 EST, [facility], Partial fill upon patient request if the prescription is for a schedule II opioid drug... Start Date: 03/20/20 Status: Ordered fluticasone 50 mcg/inh nasal spray 1 sprays, Nares, Both, 2 times a day, # 16 Gm, 0 Refills, Maintenance, 07/27/19 19:54:00 EDT, [place], [facility]/pharmacy #4471, 1 sprays Nares, Both 2 times a day, 174, cm, 12/09/18 8:31:00 EDT, Height, 50,kg, 04/10/19 4:52:00 EST, Dry Weight Start Date: 07/27/19 Status: Ordered ibuprofen 600 mg oral tablet 600 mg, 1, tablet, By Mouth, Every 8 hours, # 90 tablet, Refills 2, Tot. Refills 2, Maintenance, 03/05/19 3:09:00 EST, Route to Pharmacy Electronically, [facility]/pharmacy #[id number], 174, cm, 12/09/18 8:31:00 EDT, Height, 52.7, kg, 10/26/18 15:15:00 EDT, Dry We... Start Date: 03/05/19 Status: Ordered loratadine 10 mg oral tablet 10 mg, 1, tablet, By Mouth, Daily, # 30 tablet, Refills 4, Tot. Refills 4, Maintenance, 07/20/20 10:21:00 EDT, Route to Pharmacy Electronically, [facility]/pharmacy #4471, 174, cm, 07/20/20 9:36:00 [...] Maintenance, 08/19/20 21:01:00 EDT, Tablet, [facility]/pharmacy #[id number], Partial fill upon patient [...] MESH BARD 3X6IN 7.5X15CM - B SUSANNA ([id number]) 1 [address] 29 Unknown ANJELICA:No Information Assigning Authority: FDA
--- OUTSIDE RECORDS SUMMARY | 2022-07-04 14:38 | XMS_ITS | Continuity of Care Document ---
Author Name Unknown Organization [facility] Address [address] [place] [address]- Care Team Providers Care Landcare Officer Name Role Phone Oswald Harley NP Primary Care Physicia n Encounter [facility] Date(s): 05/23/22 - 06/22/22 [facility] [address] [place] [id number] Allergies, Adverse Reactions, Alerts Substance Reaction Severity [...] 10/30/21 15:13:00 EDT, Route to Pharmacy Electronically, [facility]/pharmacy #[id number],Partial fill upon patient request if the prescripti... Start Date: 10/30/21 Status: Ordered albuterol CFC free 90 mcg/inh inhalation aerosol 2, puffs, Inhalation, Every 6 hours, PRN, # 1 each, Refills 11, Tot. Refills 11, Maintenance, 10/10/21 9:46:00 EDT, Aerosol, Route to Pharmacy Electronically, [id number], [place], [place] - [id number], 173, c... Start Date: 10/10/21 Stop Date: 10/05/22 Status: Ordered dicyclomine 20 mg oral tablet 1 tablet = 20 mg, By Mouth, 3 times a day, For stomach cramping., # 21 tablet, 0 Refills, Maintenance, 05/24/22 11:58:00 EDT, Tablet, [facility]/pharmacy #[id number], Partial fill upon [...] 05/26/22 8:45:00 EDT, Route to Pharmacy Electronically, [facility]/pharmacy #[id number], Partial fill upon patient request if the prescription is for a schedule II opio... Start Date: 05/26/22 Status: Ordered famotidine 20 mg oral tablet 20 mg, 1, tablet, By Mouth, 2 times a day, # 180 tablet, Refills 0, Tot. Refills 0, Maintenance, 05/26/22 9:05:00 EDT, Route to Pharmacy Electronically, [facility]/pharmacy #[id number], Partial fill upon patient request if the prescription is for a schedule II opi... Start Date: 05/26/22 Status: Ordered omeprazole 40 mg oral enteric coated capsule 1 capsule = 40 mg, By Mouth, Daily, For abdominal pain/ stomach acid/ reflux, # 14 capsule, 0 Refills, Maintenance, 05/24/22 11:59:00 EDT, EC Capsule, [facility]/pharmacy #[id number], Partial fill upon patient request if the prescription is for a schedule II opioi... Start Date: 05/24/22 Stop Date: 06/07/22 Status: Ordered ondansetron 4 mg oral tablet, disintegrating 1 tablet = 4 mg, By Mouth, Every 8 hours, PRN as needed for nausea/vomiting, # 12 tablet, 0 Refills, Maintenance, 05/26/22 8:45:00 EDT, DIS Tablet, [facility]/pharmacy #[id number], Partial fill upon patient request if the prescription is for a schedule II opioid d... Start Date: 05/26/22 Status: Ordered ondansetron 4 mg oral tablet, disintegrating 1 tablet = 4 mg, By Mouth, Every 8 hours, PRN as needed for nausea/vomiting, # 14 tablet, 0 Refills, Maintenance, 05/26/22 9:05:00 EDT, DIS Tablet, [facility]/pharmacy #[id number], Partial fill upon [...] MRI Safety Implantable Status Assigning Authority Unknown [id number] Unknown 10/04/21 Unknown Unknown Active Unknown Patient Care team information Care Team Personnel Name: Mendy Spicer RN Position: [facility] RN Member Role: Primary Care Nurse Name: Shiela Mays RN Position: [facility] RN Member Role: Primary Care Nurse Name: Ashley Fields RN Position: [facility] MR W/ Merge Member Role: Primary Care Nurse Name: Keith Stacy MD Position: [facility] FAMILY AND CONSUMER EDUCATION TEACHER MD Member Role: [employer] CONSUMER EDUCATION TEACHER Physician Address: Address: [address] [place] [id number]- Name: Robin Wagner Position: [facility] RN [...] Care Nurse Name: Oswald Harley NP Position: [facility] PCO Associate Professional Member Role: PCP Address: Address: [address] [place] [phone] [place] Name: Megan Grant RN Position: [facility] ED RN W/OE and Tasks Member Role: Primary Care Nurse Name: Eliane Vo RN Position: [facility] RN Member Role: Primary Care Nurse Name: Neda Hernandez RN Position: [facility] PCO RN Member Role: Primary Care Nurse Care Team Related Persons Name: MENDEL MCKEON Address: home [address] [address] Name: GIANA LAMAS Address: home [address] [place] [address] Name: ROSHNI JUÁREZ Address: [place] [address] Name: SINDHU SCHRADER Address: home [address] [place] [address] Name: CRAIG VACA Address: home [address] [place] [id number]
--- OUTSIDE RECORDS SUMMARY | 2022-07-04 14:38 | XMS_ITS | Continuity of Care Document ---
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 Start Date: 03/20/20 Status: Ordered fluticasone 50 mcg/inh nasal spray 1 sprays, Nares, Both, 2 times a day, # 16 Gm, 0 Refills, Maintenance, 07/27/19 19:54:00 EDT, [place], [facility]/pharmacy #[id number], 1 sprays Nares, Both 2 times a day, 174, cm, 12/09/18 8:31:00 EDT, Height, 50,kg, 04/10/19 4:52:00 EST, Dry Weight Start Date: 07/27/19 Status: Ordered ibuprofen 600 mg oral tablet 600 mg, 1, tablet, By Mouth, Every 8 hours, # 90 tablet, Refills 2, Tot. Refills 2, Maintenance, 03/05/19 3:09:00 EST, Route to Pharmacy Electronically, [facility]/pharmacy #[id number], 174, cm, 12/09/18 8:31:00 EDT, Height, 52.7, kg, 10/26/18 15:15:00 EDT, Dry We... Start Date: 03/05/19 Status: Ordered loratadine 10 mg oral tablet 10 mg, 1, tablet, By Mouth, Daily, # 30 tablet, Refills 4, Tot. Refills 4, Maintenance, 07/20/20 10:21:00 EDT, Route to Pharmacy Electronically, [facility]/pharmacy #[id number], 174, cm, 07/20/20 9:36:00 EDT, [...] 0 Refills, Maintenance, 08/19/20 21:01:00 EDT, Tablet, [facility]/pharmacy #[id number], Partial fill upon patient request if the [...] MESH BARD 3X6IN [id number] - B SUSANNA ([id number]) [address] Unknown ANJELICA:No Information Assigning Authority: FDA
== END 2022-07-04 12:04 | disposition home or self-care (01) ==
PROVIDERS: Emergency Provider Emergency Medicine
DX: M25.562 Pain in left knee (principal)
CPT/HCPCS: 73564; 99282; 99283

== ENCOUNTER 2022-09-26 16:26 | Emergency (ER) | payer OTHER, SELFPAY ==
[2022-09-26 16:59] VITALS: BP 117/54; PULSE 64; RESP 18; TEMP 36.4; O2SAT 98; BMI 16.1
--- NOTE | 2022-09-26 17:01 | ED.GENADULT ---
HPI - General Adult General Chief complaint: Abdominal Pain Stated complaint: abd pain Time Seen by Provider: 09/26/22 21:21 Source: patient Mode of arrival: ambulatory Limitations: no limitations History of Present Illness HPI narrative: Patient with history of endometriosis status post ZIGGY 2021 with chronic abdominal pain for last 3 years with lot of flatulence past medical history complaining of diffuse abdominal pain for last 3 days with some streaks of bright red blood in the stool feel nauseated patient had a CT scan in 06/30 which was negative patient feels bloated all the time, symptoms do get worse when stressed 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 Related Data Previous Rx's Medication Instructions Recorded dicyclomine 20 mg tablet 20 mg PO QID PRN abdominal pain 06/19/22 #20 tabs naproxen 500 mg tablet 500 mg PO BID PRN pain 10 days #20 07/04/22 tabs cefuroxime axetil 250 mg tablet 250 mg PO BID 7 days #14 tabs 09/26/22 dicyclomine 20 mg tablet 20 mg PO BID PRN abdominal pain 09/26/22 #40 tabs Allergies Allergy/AdvReac Type Severity Reaction Status Date / Time blueberry [BLUEBERRY] Allergy Unknown UNKNOWN Verified 09/26/22 16:59 Review of Systems Review of Systems: Yes all other systems are reviewed and are [facility] Social History Social History Alcohol intake: never Smoked in Last 30 Days: No Advance Directives: No Advance Directives Information Provided: No Patient : No Physical Exam ED Vital Signs: Vital Signs - 24 hr 09/26/22 16:59 09/26/22 21:19 Temperature 97.6 F 98.1 F Pulse Rate 64 56 Respiratory Rate 18 18 Blood Pressure 117/54 L 99/61 Pulse Oximetry 98 100 Oxygen Delivery Method Room Air Room Air BMI result Body Mass Index 16.1 Appearance: Alert. Oriented X3. No acute distress. Eyes: PERRLA, No Nystagmus ENT: Pharynx normal. Oral Mucosa moist Neck: Normal inspection. Neck supple. CVS: Normal heart rate and rhythm. Pulses normal. Respiratory: No respiratory distress. Equal air entry bilateral, no wheezing/rales/rhonchi Abdomen: Soft and nontender. Bowel sounds are present, no mass palpable, no CVA tenderness Skin: Skin warm and dry. Normal skin color. Normal skin turgor. Extremities: No lower extremity edema. No calf tenderness Neuro: Oriented X 3. No motor deficit. No sensory deficit.No cerebellar signs , cranial nerves II-XII intact Course Course Course Narrative: This is an RME: Additional HPI, ROS, PE not included below will be deferred to primary provider. This is a [id number]-female presenting to the ER with complaints of periumbilical abdominal pain x 3 days. Patient states that she has had nausea. No fevers, chills, constipation, diarrhea, vomiting. Pain worsens with eating. Also reporting BRBPR with bowel movement. Had hysterectomy 1 year ago. Plan: Labs, UA, CT abd & pelvis w/ contrast. Medications Administered Discontinued Medications Generic Name Dose Route Start Last Admin Trade Name Freq PRN Reason Stop Dose Admin Dicyclomine HCl 20 mg 09/26/22 21:35 09/26/22 21:47 Dicyclomine Hcl 10 Mg Capsule PO 09/26/22 21:36 20 mg ONCE ONE Administration Medical Decision Making Medical Decision Making [facility] Narrative: Patient chronic abdominal pain likely IBS previous CT scan and workup negative labs are stable urine showed 4+ bacteria patient denies any urinary symptom will discharge patient home on Ceftin and dicyclomine Lab Data [facility] Lab Attestation statement: I reviewed the patient's lab results. 09/26/22 17:32 09/26/22 17:32 Labs: Lab Results 09/26/22 09/26/22 09/26/22 Range/Units 17:32 17:32 21:12 WBC 4.8 (4.8-10.8) X10*3/uL RBC 3.80 L (4.20-5.50) X10*6/uL Hgb 11.2 L (12.0-16.0) g/dl Hct 33.9 L (37.0-47.0) % MCV 89.2 (80.0-98.0) fL MCH 29.5 (27.0-33.0) pg MCHC 33.0 (31.0-35.0) g/dl RDW 14.6 (11.0-16.0) % Plt Count 266 (160-400) X10*3/uL MPV 9.5 (9.4-12.3) fL Immature Gran % (Auto) 0.2 (0.0-0.4) % Neut % (Auto) 50.9 (45-73) % Lymph % (Auto) 36.9 (20-40) % [place] % (Auto) 6.0 (2-11) % Eos % (Auto) 5.6 H (0-4) % Baso % (Auto) 0.4 (0-2) % Lymph # (Auto) 1.8 (1.2-4.9) X10*3/uL [place] # (Auto) 0.3 (0.1-1.2) X10*3/uL Eos # (Auto) 0.3 (0.0-0.4) X10*3/uL Baso # (Auto) 0.0 (0.0-0.2) X10*3/uL Abs Immat Gran (auto) 0.01 (0.00-0.03) X10*3/uL Absolute Neuts (auto) 2.5 (2.0-8.3) x10*3/uL Absolute Nucleated RBC 0.000 (0.0-0.012) X10*3/uL Nucleated RBC % (auto) 0.0 (0.0-0.2) /100WBC Sodium 141 (135-145) mmol/L Potassium 3.6 (3.3-5.1) mmol/L Chloride 110 H (96-108) mmol/L Carbon Dioxide 26 (22-29) mmol/L Anion Gap 9 L (12-20) BUN 7 L (9-16) mg/dL Creatinine 0.78 (0.5-1.4) mg/dL Estim Creat Clear Calc 79.1 Estimated GFR > 60 Random Glucose 101 (60-115) mg/dL Calcium 9.2 (8.4-10.2) mg/dL Total Bilirubin 0.2 (0.0-1.0) mg/dL Direct Bilirubin < 0.2 (0.0-0.5) mg/dL AST 17 (5-31) U/L ALT 9 (0-31) U/L Alkaline Phosphatase 64 (39-117) U/L Total Protein 6.4 L (6.5-8.0) g/dL Albumin 3.4 L (3.5-5.0) g/dL Lipase 12 (8-78) U/L Urine Color Yellow Urine Appearance Cloudy Urine pH 6.5 (5.0-9.0) Ur Specific [place] 1.025 (1.005-1.025) Urine Protein Trace (Neg-Trace) mg/dL Urine Glucose (UA) Negative (Negative) mg/dL Urine Ketones Negative (Negative) mg/dL Urine Blood Negative (Negative) Urine Nitrite Negative (Negative) Ur Leukocyte Esterase Trace H (Negative) Urine RBC 3-5 H (0-2) /HPF Urine WBC 6-10 H (0-5) /HPF Ur Squamous Epith Cells 6-10 (0-2) /HPF Urine Bacteria 4+ (None Seen) Hyaline Casts 3-5 (0-2) /LPF Discharge Plan Discharge Clinical Impression: UTI (urinary tract infection), Irritable bowel syndrome Patient Disposition: Home, Self-Care Instructions: Irritable Bowel Syndrome (ED), Urinary Tract Infection in Women (ED) Additional Instructions: Drink plenty of fluids Take antibiotic as prescribed Medications prescribed for abdominal pain Follow up with PCP Prescriptions: New cefuroxime axetil 250 mg tablet 250 mg PO BID 7 Days Qty: 14 0RF dicyclomine 20 mg tablet 20 mg PO BID PRN (Reason: abdominal pain) Qty: 40 0RF No Action dicyclomine 20 mg tablet 20 mg PO QID PRN (Reason: abdominal pain) Qty: 20 0RF naproxen 500 mg tablet 500 mg PO BID PRN (Reason: pain) 10 Days Qty: 20 0RF
[2022-09-26 17:37] LABS: MANUAL DIFF FLAG NO
[2022-09-26 17:52] LABS: Basophils Percent Auto 0.4 % (0-2); Eosinophils Absolute Auto 0.3 X10*3/uL (0.0-0.4); Eosinophils Percent Auto 5.6 % (0-4); Hematocrit 33.9 % (37.0-47.0); Hemoglobin 11.2 g/dl (12.0-16.0); Imm Gran Abs Auto 0.01 X10*3/uL (0.00-0.03); Imm Gran Pct Auto 0.2 % (0.0-0.4); Lymphocytes Absolute Auto 1.8 X10*3/uL (1.2-4.9); Lymphocytes Percent Auto 36.9 % (20-40); Mean Corpuscular Hemoglobin 29.5 pg (27.0-33.0); Mean Corpuscular Volume 89.2 fL (80.0-98.0); Mean Platelet Volume 9.5 fL (9.4-12.3); Monocytes Absolute Auto 0.3 X10*3/uL (0.1-1.2); Neutrophils Absolute Auto 2.5 x10*3/uL (2.0-8.3); Neutrophils Percent Auto 50.9 % (45-73); Platelet Count 266 X10*3/uL (160-400); Red Cell Distribution Width 14.6 % (11.0-16.0); White Blood Count 4.8 X10*3/uL (4.8-10.8)
[2022-09-26 18:04] LABS: Alanine Aminotransferase 9 U/L (0-31); Albumin Level 3.4 g/dL (3.5-5.0); Alkaline Phosphatase 64 U/L (39-117); Anion Gap 9 (12-20); Aspartate Amino Transferase 17 U/L (5-31); Bilirubin Direct < 0.2 mg/dL (0.0-0.5); Bilirubin Total 0.2 mg/dL (0.0-1.0); Blood Urea Nitrogen 7 mg/dL (9-16); Calcium 9.2 mg/dL (8.4-10.2); Carbon Dioxide 26 mmol/L (22-29); Chloride 110 mmol/L (96-108); Creatinine Clr Calc Pharmacy 79.1; Estimated Glomerular Filt Rate > 60; Glucose Random 101 mg/dL (60-115); Lipase 12 U/L (8-78); Potassium 3.6 mmol/L (3.3-5.1); Sodium 141 mmol/L (135-145); Total Protein 6.4 g/dL (6.5-8.0)
[2022-09-26 21:19] VITALS: BP 99/61; PULSE 56; RESP 18; TEMP 36.7; O2SAT 100
[2022-09-26 21:25] LABS: Appearance Urine Cloudy; Color Urine Yellow; Glucose Urine UA Negative (Negative); Leukocyte Esterase Urine Trace (Negative); Nitrite Urine Negative (Negative); PH 6.5 (5.0-9.0); Specific Gravity - Urine 1.025 (1.005-1.025); UMIC TRIGGER UACC YES; Urine Blood Negative (Negative); Urine Ketones Negative (Negative); Urine Protein Trace mg/dL (Neg-Trace)
[2022-09-26 21:32] LABS: Bacteria Urine 4+ (None Seen); UACC Culture Trigger YES
[2022-09-26] MEDS: Dicyclomine HCl 10 MG CAPSULE 20 MG PO (21:47)
== END 2022-09-26 23:10 | disposition home or self-care (01) ==
PROVIDERS: Physician Assistant Medical; Emergency Provider Internal Medicine
DX: N39.0 Urinary tract infection, site not specified (principal); K58.9 Irritable bowel syndrome, unspecified
CPT/HCPCS: 36415; 80048; 80076; 81001; 83690; 85025; 87086; 99283; 99284

== ENCOUNTER 2023-03-11 08:09 | Emergency (ER) | payer OTHER, SELFPAY ==
--- NOTE | ~2023-03-11 | XR_ITS ---
EXAMINATION: XR CHEST CLINICAL INFORMATION: Chest pain on inspiration Cough COMPARISON: Chest 02/06/2019 TECHNIQUE: Frontal view of the chest was obtained. FINDINGS: No significant abnormality is noted involving the heart, lungs, mediastinum, bony thorax or soft tissues. XR/XR chest 1V IMPRESSION: No acute cardiopulmonary disease.
[2023-03-11 08:45] VITALS: BP 136/64; PULSE 60; RESP 18; TEMP 37.2; O2SAT 99; BMI 17.2
[2023-03-11 09:37] LABS: Influenza A PCR NEGATIVE (Negative); Influenza B PCR NEGATIVE (Negative); Resp Syncy Virus RNA Qual PCR NEGATIVE (Negative); SARS COV2 PCR INHOUSE NEGATIVE (Negative)
--- NOTE | 2023-03-11 10:27 | ED.GENADULT ---
HPI - General Adult General Chief complaint: General Medical Stated complaint: Cold symptoms Time Seen by Provider: 03/11/23 10:27 Source: patient and family Mode of arrival: ambulatory Limitations: no limitations History of Present Illness HPI narrative: 32-year-old female presents with complaints of fatigue, malaise, myalgias, fevers T-max 103 degrees F, chills, cough? which is slightly productive with associated chest pain only with coughing, no chest pain at rest times 4 days.? Denies shortness of breath.? Reports recent sick contacts.? Denies headache, vision changes, nausea, vomiting, diarrhea Related Data Previous Rx's Medication Instructions Recorded dicyclomine 20 mg tablet 20 mg PO QID PRN abdominal pain 06/19/22 #20 tabs naproxen 500 mg tablet 500 mg PO BID PRN pain 10 days #20 07/04/22 tabs cefuroxime axetil 250 mg tablet 250 mg PO BID 7 days #14 tabs 09/26/22 dicyclomine 20 mg tablet 20 mg PO BID PRN abdominal pain 09/26/22 #40 tabs albuterol sulfate 90 mcg/actuation 2 inh inhalation Q4-6H PRN 03/11/23 breath activated powder inhaler shortness of breath or wheezing #1 ea doxycycline hyclate 100 mg capsule 100 mg PO BID 10 days #20 caps 03/11/23 prednisone 20 mg tablet 40 mg (2 x 20 mg) PO DAILY 5 days 03/11/23 #10 tabs Allergies Allergy/AdvReac Type Severity Reaction Status Date / Time blueberry [BLUEBERRY] Allergy Unknown UNKNOWN Verified 03/11/23 08:45 Review of Systems Review of Systems: Yes all other systems are reviewed and are negative PMFSH Past Medical History Attestation statement: The following information was validated with the patient. Source: old records reviewed and nursing notes reviewed Onset Date is defined in the Problem List Problems that require an onset date and time if occurred within 24 hrs of arrival to the ED Aortic Dissection and Rupture; Neurologic impairment; Cardiopulmonary Arrest; Endotracheal Intubation; Insertion or Replacement of Mechanical Circulatory Assist Device Social History Social History Alcohol intake: never Physical Exam ED Vital Signs: Vital Signs - 24 hr 03/11/23 08:45 Temperature 98.9 F Pulse Rate 60 Respiratory Rate 18 Blood Pressure 136/64 Pulse Oximetry 99 Oxygen Delivery Method Room Air BMI result Body Mass Index 17.2 Vital signs stable Appearance: Alert.? Oriented X3.? No acute distress.? Head: Normocephalic, atraumatic, no step-offs or deformities Eyes: Pupils equal, round and reactive to light.? Neck: Normal inspection.? Neck supple.? CVS: Normal heart rate and rhythm.? Pulses normal.? Respiratory: No respiratory distress.? Breath sounds normal.? Abdomen: Soft and nontender.? Skin: Skin warm and dry.? Normal skin color.? Normal skin turgor.? Extremities: No lower extremity edema.? No calf ttp. 5/5 strength to bilateral upper and lower extremities Neuro: Oriented X 3.? No motor deficit.? No sensory deficit. CN 2-12 intact Course Reevaluation(s) Reevaluation #1: Flu/COVID/RSV negative. Will treat for bronchitis. Educated patient on diagnosis and treatment plan, answered all question, patient verbalizes understanding. At this time patient will be discharged home, advised to return with new or worsening symptoms. Educated on worrisome signs and symptoms and when to return. At this time I feel comfortable discharge home. Time: 10:35 Medical Decision Making Medical Decision Making [facility] Narrative: ?30-year-old female presents with upper respiratory symptoms for the past 4 days + sick contacts ???Physical exam benign ?History and physical exam concerning for viral illness versus pneumonia versus bronchitis versus chronic lung condition.? Unlikely ACS, dissection, pulmonary embolism, acute respiratory distress ?Plan at this time viral testing, x-ray.? Indication for labs. Differential Diagnosis Differential Diagnoses: The differential diagnosis associated with the presentation includes ?History and physical exam concerning for viral illness versus pneumonia versus bronchitis versus chronic lung condition.? Unlikely ACS, dissection, pulmonary embolism, acute respiratory distress Admission/Observation Consideration of admission/observation: Escalation of care including admission/observation considered Unlikely Lab Data [facility] Lab Attestation statement: I reviewed the patient's lab results. Labs: Lab Results 03/11/23 Range/Units 08:55 Influenza Type A (PCR) NEGATIVE (Negative) Influenza Type B (PCR) NEGATIVE (Negative) RSV RNA Qual (PCR) NEGATIVE (Negative) SARS-CoV-2 RNA (RT-PCR) NEGATIVE (Negative) Independent Interpretation I performed an independent interpretation of an: Plain X-Ray Radiology Impression Discussion of test interpretation with radiology: I have reviewed the radiologist's reading. Critical Care Time Critical Care Time Critical Care Time: No Discharge Plan Discharge Clinical Impression: Bronchitis Patient Disposition: Home, Self-Care Instructions: Acute Bronchitis (ED) Additional Instructions: Take your medications as prescribed. If you were prescribed antibiotics today, it is important that you take your medication to their entirety, do not skip any doses, do not finish them early. Follow-up with your primary care provider this week. Return to the emergency department with new or worsening symptoms. Such as fevers, chills, chest pain, shortness of breath, nausea, vomiting, dizziness, headache, vision changes, lethargy In case of emergency call 911 Prescriptions: New albuterol sulfate 90 mcg/actuation aerosol powdr breath activated 2 inh inhalation Q4-6H PRN (Reason: shortness of breath or wheezing) Qty: 1 0RF doxycycline hyclate 100 mg capsule 100 mg PO BID 10 Days Qty: 20 0RF prednisone 20 mg tablet 40 mg PO DAILY 5 Days Qty: 10 0RF No Action dicyclomine 20 mg tablet 20 mg PO QID PRN (Reason: abdominal pain) Qty: 20 0RF naproxen 500 mg tablet 500 mg PO BID PRN (Reason: pain) 10 Days Qty: 20 0RF cefuroxime axetil 250 mg tablet 250 mg PO BID 7 Days Qty: 14 0RF dicyclomine 20 mg tablet 20 mg PO BID PRN (Reason: abdominal pain) Qty: 40 0RF Referrals: Jadyn Smith MD [Primary Care Provider] - 2 days
[2023-03-11 10:47] VITALS: BP 122/62; PULSE 64; RESP 16; TEMP 36.6; O2SAT 100
== END 2023-03-11 11:09 | disposition home or self-care (01) ==
PROVIDERS: Emergency Provider Emergency Medicine; PCP Internal Medicine
DX: J40 Bronchitis, not specified as acute or chronic (principal); Z20.822 Contact with and (suspected) exposure to COVID-19; Z20.828 Contact with and (suspected) exposure to other viral communicable diseases
CPT/HCPCS: 0241U; 71045; 99283; 99284

== ENCOUNTER 2023-04-13 12:51 | Inpatient (IN) | payer OTHER, SELFPAY ==
--- NOTE | ~2023-04-13 | XR_ITS ---
EXAMINATION: XR CHEST CLINICAL INFORMATION: Asthma. Shortness of breath. COMPARISON: Previous chest x-ray March 2023 TECHNIQUE: Frontal view of the chest was obtained. FINDINGS: The cardiac and mediastinal contours are normal. The lungs are well-inflated. Lungs are clear. No pleural effusion or pneumothorax. Normal earline structures. XR/XR chest 1V IMPRESSION: Well-inflated lungs. No evidence for acute disease in the chest.
[2023-04-13 12:56] VITALS: BP 114/87; PULSE 71; RESP 17; TEMP 36.4; O2SAT 99; BMI 17.5
--- NOTE | 2023-04-13 13:01 | ED_ITS ---
HPI - Asthma General Chief Complaint: Asthma Stated Complaint: Asthma Diff Breathing Time Seen by Provider: 04/13/23 13:24 Source: patient Mode of arrival: ambulatory Limitations: no limitations History of Present Illness HPI Narrative: 32 year old female with pmhx of asthma presents to the ED today for evaluation of difficulty breathing x3 days. Additionally endorses dry cough along with chest discomfort on coughing. Admits to taking 6 puffs of her rescue inhaler since last night without resolution. Has also been using nebulizer at home with temporary relief. Her kids at home are ill with a cold . Denies fever, chills, sore throat, ear pain, sputum production, chest pain, hemoptysis, LE pain/ swelling. Denies being on control. Denies recent travel or long car rides. Related Data Home Medications Medication Instructions Recorded Confirmed estradiol 2 mg tablet 2 mg PO DAILY 04/13/23 04/13/23 Previous Rx's Medication Instructions Recorded albuterol sulfate 90 mcg/actuation 2 inh inhalation Q4-6H PRN 03/11/23 breath activated powder inhaler shortness of breath or wheezing #1 ea nicotine (polacrilex) 2 mg buccal 2 mg buccal Q2H PRN Nicotine 04/15/23 lozenge Cravings #72 ea prednisone 20 mg tablet 20 mg PO DAILY 5 days #10 tabs 04/15/23 Allergies Allergy/AdvReac Type Severity Reaction Status Date / Time blueberry [BLUEBERRY] Allergy Unknown UNKNOWN Verified 03/11/23 08:45 Review of Systems 2 Review of Systems: Constitutional: No fever, chills, fatigue, night sweats, weight changes ENT/Mouth: No ear pain, hearing loss, nasal congestion, sinus pain, rhinorrhea, sore throat Eyes: No eye pain, swelling, redness, vision changes, discharge Cardio: No chest pain, palpitations, LAL, orthopnea, peripheral edema Pulm: +SOB, +cough, No sputum, No wheezing, dyspnea, hemoptysis GI: No nausea, vomiting, hematemesis, abdominal pain, diarrhea, constipation, hematochezia, melena : No irregular bleeding, dysuria, frequency, urgency, hesitancy, hematuria, flank pain, urinary flow changes, urinary incontinence or retention MSK: No back pain, neck pain, joint pain, myalgias Skin: No lesions, rashes Neuro: No weakness, numbness, paresthesias, LOC, dizziness, headache All other systems reviewed and are negative. [facility] Past Medical History Attestation statement: The following information was validated with the patient. Source: old records reviewed and nursing notes reviewed Social History Social History Household Members: Children Housing: Apartment Do you presently have visiting nurse or other home services: No Alcohol intake: never Patient Tobacco Use Status: Current everyday Tobacco user Tobacco use type: Cigarette Cigarette Packs Per Day: 0.05 Cigarettes Per Day: 1.0 Second Hand Smoke Exposure: No service: No Physical Exam 2 Vital Signs: Vital Signs: Last Vital Signs Temp 97.3 F 04/15/23 11:25 Pulse 60 04/15/23 11:39 Resp 15 04/15/23 11:39 BP 120/55 L 04/15/23 11:25 Pulse Ox 100 04/15/23 11:25 O2 Del Method Room Air 04/15/23 11:25 BMI result Body Mass Index 17.5 Vital signs stable, afebrile. Const: General: cooperative and no acute distress O rientation/consciousness: patient oriented x3 Limitations: no limitations HEENT: Other: + airway patent + posterior oropharynx without erythema or edema. no tonsilar exudates. uvula midline. controling secretions. + speaking in 3-4 word sentences Head: Yes normal to inspection Ears: hearing grossly normal bilaterally, external ears normal, TM's normal bilaterally, TM normal on the left, EAC's normal, mastoids normal and no periauricular adenopathy Eyes: General: appearance normal, both eyes and all related structures C onjunctivae: conjunctivae normal Sclerae: sclerae normal Pupils: Equal, round and reactive pupils present Neck: Neck: Yes normal visual inspection and Yes no lymphadenopathy Chest: Chest palpation & inspection: normal inspection of the chest Resp: Other: + speaking in 3-4 word sentences, active ly coughing + inspiratory and expiratory wheezes fransisca aterally Effort & Inspection: normal respiratory effort, Actively coughing, no nasal flaring, no retractions, no tripod positioning, no use of accessory muscles and symmetric chest movement Cardio: Jugular venous distension: no JVD Rate: regular rate Rhythm: r egular rhythm Peripheral pulses: Peripheral pulses 2+ throughout GI: Inspection: Yes normal to inspection Palpation (GI): Soft to palpation Skin: General skin exam: no rashes or lesions noted Neuro: General: patient oriented x3 Cranial nerves: Yes Equal, round and reactive pupils present Extrem: General: Yes normal to inspection and Yes no calf tenderness Course Course Course Narrative: RME: 32 yold female with pmh of asthma presents to the ED for asthma exacerbation with shortness of breath for the past 3-4 days. Patient denies any chest pain, pleurisy, leg swelling, calf pain, coughing up blood, control use, or pmh of blood clots. ED broncho dilator placed, prednisone, and swabs ordered Reevaluation(s) Reevaluation #1: 1350-- patient reports some improvement in breathing with albuterol DuoNeb administered by RT. She has also received 60 mg p.o. prednisone. On re- evaluation, there are still inspiratory and expiratory wheezes to bilateral lungs. Will place another ED bronch protocol and administer magnesium sulfate. Will also obtain basic labs, D-dimer to rule out PE - although less likely. >> COVID and flu negative. 1830 -- Ddimer negative > low suspicion for PE. Coags WNL. CBC without leukocytosis. H&H stable. Chemistry without acute electrolyte abnormality requiring intervention. Magnesium slightly elevated to 3.1 following mag sulfate administration. Potassium wnl. CXR showing hyperinflated lungs. No consolidations or infiltrates to suggest pneumonia. No evidence of pneumothorax or effusion. RSV negative. > on re-evaluation, patient continues to have inspiratory and expiratory wheezes b/l. she is now speaking in complete sentences and sating 100% on RA. However, given improving presentation, patient continues to endorse difficulty breathing. > I presented patient to Dr. Escobedo for admission. Dr. Ponce has evaluated patient at bedside and agrees with admission to medicine for acute asthma exacerbation unresponsive to treatment > will place admission orders. Patients vital signs are stable. Medications Administered Discontinued Medications Generic Name Dose Route Start Last Admin Trade Name Freq PRN Reason Stop Dose Admin Albuterol Sulfate 2 puff 04/13/23 18:48 04/14/23 05:37 Albuterol Sulfate 90 Mcg 8 Gm Inhaler INHALE 2 puff Q4H PRN Administration shortness of breath or wheezing Albuterol Sulfate 2.5 mg 04/15/23 00:35 04/15/23 00:41 Albuterol Sulfate (0.083%) 2.5 Mg/3 Ml Vial.Neb INHALE 2.5 mg Q3H PRN Administration Shortness of Breath/Wheezing Albuterol/Ipratropium 3 ml 04/13/23 20:00 04/15/23 11:39 Albuterol/Iprat 2.5/0.5mg 3 Ml Ampul.Neb INHALE 3 ml RQ4H WHILE AWAKE MELVIN Administration Albuterol Sulfate 5 mg/ 0 mg 04/13/23 13:15 04/13/23 13:19 Albuterol/Ipratropium 3 ml INHALE 04/13/23 13:16 1 each ONCE ONE Administration Albuterol Sulfate 2.5 mg/ 0 mg 04/13/23 14:08 04/13/23 14:11 Albuterol/Ipratropium 3 ml INHALE 04/13/23 14:09 1 dose ONCE ONE Administration Estradiol 2 mg 04/13/23 19:00 04/15/23 08:06 Estradiol 0.5 Mg Tablet PO 2 mg DAILY MELVIN Administration Hydromorphone HCl 0.5 mg 04/14/23 22:20 04/14/23 22:25 Hydromorphone Hcl 0.5 Mg/0.5 Ml Syringe IVPUSH 04/14/23 22:21 0.5 mg ONCE ONE Administration Protocol Magnesium Sulfate 2 gm in 50 mls @ 25 mls/hr 04/13/23 13:50 04/13/23 16:01 Magnesium Sulfate/H2o IV 04/13/23 15:49 25 mls/hr ONCE ONE Infusion Azithromycin 500 mg/ Sodium 250 mls @ 125 mls/hr 04/13/23 19:00 04/14/23 20:39 Chloride IV Infused Q24H MELVIN Infusion Influenza Virus Vaccine 0.5 ml 04/14/23 10:51 04/14/23 12:35 Flu Vacc [id number](6mos Up)/Pf 0.5 Ml Syringe IM 04/14/23 10:52 0.5 ml .ONCE ONE Administration Methylprednisolone Sodium Succinate 40 mg 04/14/23 06:00 04/15/23 06:21 Methylprednisolone Sod Succ 40 Mg/Ml Vial IVPUSH 40 mg Q12H MELVIN Administration Metoclopramide HCl 5 mg 04/13/23 22:26 04/13/23 22:42 Metoclopramide Hcl 10 Mg/2 Ml Vial IVPUSH 04/13/23 22:27 5 mg ONCE ONE Administration Omeprazole 20 mg 04/14/23 06:30 04/15/23 06:23 Omeprazole 20 Mg Capsule.Dr DE LUNA Not Given DAILY@0630 [facility] Ondansetron HCl 4 mg 04/13/23 19:52 04/14/23 22:30 Ondansetron Hcl 4 Mg/2 Ml Vial IVPUSH 4 mg Q6H PRN Administration Nausea and Vomiting Prednisone 60 mg 04/13/23 13:01 04/13/23 13:25 Prednisone 20 Mg Tablet PO 04/13/23 13:02 60 mg ONCE ONE Administration Sodium Chloride 3 ml 04/14/23 00:00 04/15/23 08:08 0.9 % Sodium Chloride Flush 3 Ml Syringe IVFLUSH 3 ml QSHIFT [facility] Administration Medical Decision Making Medical Decision Making [facility] Narrative: 32 year old female with pmhx of asthma presents to the ED today for evaluation of difficulty breathing x3 days. Vital signs stable, afebrile. Not hypoxic. Nontoxic-appearing and in NAD. Lungs with bilateral inspiratory and expiratory wheezes. Actively coughing. RRR. No calf tenderness. No peripheral edema or JVD. Clinical concern for acute asthma exacerbation, bronchitis, upper respiratory infection, viral syndrome, pneumonia, pneumothorax, pulmonary embolism. Less likely ACS, arrhythmia, CHF, pleural effusion, ARDS. ED bronchodilator, prednisone, chest x-ray and flu/COVID swabs ordered in triage. Differential Diagnosis Differential Diagnoses: The differential diagnosis associated with the presentation includes As above. Admission/Observation Consideration of admission/observation: Escalation of care including admission/observation considered This 32 year old female with acute asthma exacerbation unresponsive to treatment will be admitted to medicine. Consult Healthcare Provider Management of the patient was discussed with: Hospitalist (Dr. Escobedo and Dr. Ponce) Lab Data [facility] Lab Attestation statement: I reviewed the patient's lab results. As above. 04/14/23 05:01 04/14/23 05:01 Labs: Lab Results 04/13/23 04/13/23 04/13/23 Range/Units 13:18 15:48 18:30 WBC 10.6 (4.8-10.8) X10*3/uL RBC 4.04 L (4.20-5.50) X10*6/uL Hgb 12.5 (12.0-16.0) g/dl Hct 36.7 L (37.0-47.0) % MCV 90.8 (80.0-98.0) fL MCH 30.9 (27.0-33.0) pg MCHC 34.1 (31.0-35.0) g/dl RDW 14.3 (11.0-16.0) % Plt Count 230 (160-400) X10*3/uL MPV 9.6 (9.4-12.3) fL Immature Gran % (Auto) 0.3 (0.0-0.4) % Neut % (Auto) 95.5 H (45-73) % Lymph % (Auto) 3.5 L (20-40) % Gaines % (Auto) 0.6 L (2-11) % Eos % (Auto) 0.0 (0-4) % Baso % (Auto) 0.1 (0-2) % Lymph # (Auto) 0.4 L (1.2-4.9) X10*3/uL Gaines # (Auto) 0.1 (0.1-1.2) X10*3/uL Eos # (Auto) 0.0 (0.0-0.4) X10*3/uL Baso # (Auto) 0.0 (0.0-0.2) X10*3/uL Abs Immat Gran (auto) 0.03 (0.00-0.03) X10*3/uL Absolute Neuts (auto) 10.2 H (2.0-8.3) x10*3/uL Absolute Nucleated RBC 0.000 (0.0-0.012) X10*3/uL Nucleated RBC % (auto) 0.0 (0.0-0.2) /100WBC Smear Tech's Comments VERIFIED PT 11.4 (11.1-13.3) SEC INR 0.9 (0.9-1.1) D-Dimer High Sensitivty < 150 NG/ML Sodium 141 (135-145) mmol/L Potassium 3.6 (3.3-5.1) mmol/L Chloride 106 (96-108) mmol/L Carbon Dioxide 25 (22-29) mmol/L Anion Gap 14 (12-20) BUN 13 (9-16) mg/dL Creatinine 0.75 (0.5-1.4) mg/dL Estim Creat Clear Calc 88.9 Estimated GFR > 60 Random Glucose 133 H (60-115) mg/dL Calcium 9.0 (8.4-10.2) mg/dL Magnesium 3.1 H (1.6-2.6) mg/dL Total Bilirubin 0.2 (0.0-1.0) mg/dL AST 23 (5-31) U/L ALT 14 (0-31) U/L Alkaline Phosphatase 62 (39-117) U/L Total Protein 7.1 (6.5-8.0) g/dL Albumin 4.0 (3.5-5.0) g/dL Lipase 10 (8-78) U/L COVID-19 (JOCELIN) Negative (Negative) COVID-19 Clin Com See Note Influenza Type A (JOSELIN) Negative (Negative) Influenza Type A (PCR) NEGATIVE (Negative) Influenza Type B (JOSELIN) Negative (Negative) Influenza Type B (PCR) NEGATIVE (Negative) Influenza A & B Note See Note RSV RNA Qual (PCR) NEGATIVE (Negative) SARS-CoV-2 RNA (RT-PCR) NEGATIVE (Negative) Independent Interpretation I performed an independent interpretation of an: Plain X-Ray Interpretation: I have personally reviewed chest x-ray and agree with radiologist's interpretation. Radiology Impression Discussion of test interpretation with radiology: I have reviewed the radiologist's reading. Radiologist Impression: XR chest 1V IMPRESSION: Well-inflated lungs. No evidence for acute disease in the chest. External Record Review External record reviewed: Inpatient record Prescription Management I considered prescription management with: Pain Medication and Other (steroid) Chronic Conditions Patient?s care impacted by: Other (Asthma) Social Determinants Patient?s care significantly limited by Social Determinants of Health including: Other Social Determinant of Health Critical Care Time Critical Care Time Critical Care Time: Yes Total Critical Care Time: 60 Attestation: Critical care time in the amount of 60 minutes has been provided to the patient in terms of direct patient care, frequent reevaluation, consultation with hospitalist, review and interpretation of medical data and results, and management of potentially life-threatening conditions. This is all outside of any medical procedures. Discharge Plan Discharge Clinical Impression: Asthma with acute exacerbation Patient Disposition: Admitted As Inpatient Interventions: Admission Worksheet (ED) Last Done: 04/14/23 09:10 Discharge Date/Time: 04/14/23 09:15
[2023-04-13] MEDS: Albuterol Sulfate 5 MG, Albuterol/Iprat 2.5/0.5MG 3 ML 3 ML INHALE (13:19)
[2023-04-13 13:20] VITALS: PULSE 70; RESP 21; O2SAT 98
[2023-04-13] MEDS: predniSONE 20 MG TABLET 60 MG PO (13:25)
[2023-04-13 13:52] LABS: COVID-19 Test Negative (Negative); IDNOW Serial# 08D9AD1C
[2023-04-13 13:53] LABS: IDNOW Serial# 152EDE1D; Influenza A Negative (Negative); Influenza B2 Negative (Negative)
[2023-04-13 14:11] VITALS: PULSE 60; RESP 18; O2SAT 98
[2023-04-13] MEDS: Albuterol Sulfate 2.5 MG, Albuterol/Iprat 2.5/0.5MG 3 ML 3 ML INHALE (14:11)
[2023-04-13] MEDS: Magnesium Sulfate/H2O 2 GM/50 ML PIGGYBACK IV (14:44)
[2023-04-13 15:53] LABS: Basophils Percent Auto 0.1 % (0-2); Hematocrit 36.7 % (37.0-47.0); Hemoglobin 12.5 g/dl (12.0-16.0); Imm Gran Abs Auto 0.03 X10*3/uL (0.00-0.03); Imm Gran Pct Auto 0.3 % (0.0-0.4); Lymphocytes Absolute Auto 0.4 X10*3/uL (1.2-4.9); Lymphocytes Percent Auto 3.5 % (20-40); MANUAL DIFF FLAG SCAN; Mean Corpuscular HGB Conc 34.1 g/dl (31.0-35.0); Mean Corpuscular Hemoglobin 30.9 pg (27.0-33.0); Mean Corpuscular Volume 90.8 fL (80.0-98.0); Mean Platelet Volume 9.6 fL (9.4-12.3); Monocytes Absolute Auto 0.1 X10*3/uL (0.1-1.2); Monocytes Percent Auto 0.6 % (2-11); Neutrophils Absolute Auto 10.2 x10*3/uL (2.0-8.3); Neutrophils Percent Auto 95.5 % (45-73); Platelet Count 230 X10*3/uL (160-400); Red Blood Count 4.04 X10*6/uL (4.20-5.50); Red Cell Distribution Width 14.3 % (11.0-16.0); SCAN SMEAR FLAG 1; White Blood Count 10.6 X10*3/uL (4.8-10.8)
[2023-04-13 15:58] LABS: INTERNATIONAL NORM RATIO 0.9 (0.9-1.1); Prothrombin Time 11.4 SEC (11.1-13.3)
[2023-04-13 16:07] LABS: Alanine Aminotransferase 14 U/L (0-31); Alkaline Phosphatase 62 U/L (39-117); Anion Gap 14 (12-20); Aspartate Amino Transferase 23 U/L (5-31); Bilirubin Total 0.2 mg/dL (0.0-1.0); Blood Urea Nitrogen 13 mg/dL (9-16); Carbon Dioxide 25 mmol/L (22-29); Chloride 106 mmol/L (96-108); Creatinine Clr Calc Pharmacy 88.9; Estimated Glomerular Filt Rate > 60; Glucose Random 133 mg/dL (60-115); Lipase 10 U/L (8-78); Magnesium 3.1 mg/dL (1.6-2.6); Potassium 3.6 mmol/L (3.3-5.1); Sodium 141 mmol/L (135-145); Total Protein 7.1 g/dL (6.5-8.0)
[2023-04-13 16:17] LABS: SLIDE REVIEW VERIFIED
[2023-04-13 16:19] LABS: D Dimer High Sensitivity < 150 NG/ML
[2023-04-13 17:10] VITALS: BP 98/73; PULSE 60; RESP 16; TEMP 36.8; O2SAT 100
--- NOTE | 2023-04-13 17:42 | PHA.MEDREC ---
Pharmacy Consult ? Medication Reconciliation Pharmacy has completed the medication reconciliation.
--- NOTE | 2023-04-13 18:41 | PM.IMHP ---
History of Present Illness Date of Service: 04/13/23 Chief Complaint: Shortness of breath 32-year-old female with past medical history of mild intermittent asthma presented to ED for shortness of breath of 3 days' duration associated with dry cough, chest discomfort, No associated fever, no chills, no sore throat, no earache, no headache, no dizziness, daughter is sick for last 5 days with cold, no recent travel, patient smokes half pack per day, patient has been using her updraft treatment every 2-3 hours but since was not getting better therefore came for evaluation chest x-ray showed hyperinflation, WBC unremarkable patient treated in the emergency room, with IV magnesium, IV prednisone and 2 rounds of albuterol treatment without significant treatment therefore being admitted for treatment of asthma exacerbation. Review of Systems Review of Systems: General no headache, no dizziness no fever chills. CVS no chest pain, no palpitation. Respiratory dry cough , shortness of breath Gastrointestinal no nausea no vomiting, no abdominal pain no urgency, no frequency Skin no rash All other system reviewed and negative PMFSH Pertinent family history: Mother of liver failure, had diabetes mellitus Not aware of father Social History Alcohol intake: never Smoked in Last 30 Days: Yes Use of substances other than those prescribed or required for medical reasons: No Advance Directives: No Advance Directives Information Provided: No Meds Allergies Allergy/AdvReac Type Severity Reaction Status Date / Time blueberry [BLUEBERRY] Allergy Unknown UNKNOWN Verified 03/11/23 08:45 Home Medications Medication Instructions Recorded Confirmed Last Taken Type estradiol 2 mg tablet 2 mg PO DAILY 04/13/23 04/13/23 Unknown History Physical Exam Vital Signs and Narrative: Vital Signs: Last Vital Signs Temp 98.3 F 04/13/23 17:10 Pulse 60 04/13/23 17:10 Resp 16 04/13/23 17:10 BP 98/73 04/13/23 17:10 Pulse Ox 100 04/13/23 17:10 O2 Del Method Room Air 04/13/23 17:10 BMI result Body Mass Index 17.5 Const: Other: General resting comfortably in no acute distress. Anicteric sclera Neck supple no JVD. CVS regular rate rhythm, Respiratory lungs diminished breath sounds, bilateral expiratory wheeze,no respiratory distress. Gastrointestinal abdomen soft, non tender, bowel sounds audible, no guarding , no rigidity. Extremities no edema. Neuro nonfocal , speech clear. Skin no rash Results Labs 04/13/23 15:48 04/13/23 15:48 Labs: Laboratory Results - last 24 hr 04/13/23 04/13/23 13:18 15:48 MCV 90.8 MCH 30.9 MCHC 34.1 RDW 14.3 Plt Count 230 MPV 9.6 Immature Gran % (Auto) 0.3 Neut % (Auto) 95.5 H Lymph % (Auto) 3.5 L Braxton % (Auto) 0.6 L Eos % (Auto) 0.0 Baso % (Auto) 0.1 Lymph # (Auto) 0.4 L Braxton # (Auto) 0.1 Eos # (Auto) 0.0 Baso # (Auto) 0.0 Abs Immat Gran (auto) 0.03 Absolute Neuts (auto) 10.2 H Absolute Nucleated RBC 0.000 Nucleated RBC % (auto) 0.0 Smear Tech's Comments VERIFIED PT 11.4 INR 0.9 D-Dimer High Sensitivty < 150 Anion Gap 14 Estim Creat Clear Calc 88.9 Estimated GFR > 60 Random Glucose 133 H Calcium 9.0 Magnesium 3.1 H Total Bilirubin 0.2 AST 23 ALT 14 Alkaline Phosphatase 62 Total Protein 7.1 Albumin 4.0 Lipase 10 COVID-19 (JOCELIN) Negative COVID-19 Clin Com See Note Influenza Type A (JOSELIN) Negative Influenza Type B (JOSELIN) Negative Influenza A & B Note See Note Imaging Radiologist's Impressions: Impressions Chest X-Ray 04/13/23 13:54 IMPRESSION: Well-inflated lungs. No evidence for acute disease in the chest. Assessment and Plan (1) Asthma with acute exacerbation: Status: Acute Plan 32-year-old female with past medical history significant for mild intermittent asthma, endometriosis presented to [facility] with few day history of shortness of breath and cough, Daughter sick with similar symptoms. Acute mild intermittent asthma exacerbation IV Solu Medrol, DuoNeb updraft scheduled and prn Cough medication, IV azithromycin Supportive care oxygen as needed Tobacco use disorder counseling done recommend nicotine gum. DVT prophylaxis early ambulation / low risk In my clinical judgment patient need to night inpatient hospitalization for treatment of asthma exacerbation requiring IV steroids and scheduled updraft treatment. Quality Stroke Does the patient have a stroke diagnosis?: No VTE Prior VTE?: No VTE Risk Level:: Medical - low VTE Device Contraindication: Treatment Not Indicated VTE Drug Contraindication: Treatment Not Indicated
[2023-04-13 19:15] LABS: Influenza A PCR NEGATIVE (Negative); Influenza B PCR NEGATIVE (Negative); Resp Syncy Virus RNA Qual PCR NEGATIVE (Negative); SARS COV2 PCR INHOUSE NEGATIVE (Negative)
[2023-04-13] MEDS: Albuterol/Iprat 2.5/0.5MG 3 ML AMPUL.NEB INHALE (19:23)
[2023-04-13 19:24] VITALS: PULSE 68; RESP 16; O2SAT 94
[2023-04-13] MEDS: Azithromycin 500 MG in 0.9 % Sodium Chloride 250 ML 125 MG IV (19:31)
[2023-04-13] MEDS: ondansetron HCL 4 MG/2 ML VIAL IVPUSH (19:57)
[2023-04-13] MEDS: estradioL 0.5 MG TABLET 2 MG PO (20:25)
[2023-04-13 22:38] VITALS: BP 108/72; PULSE 64; RESP 18; TEMP 36.8; O2SAT 98
[2023-04-13] MEDS: Metoclopramide HCl 10 MG/2 ML VIAL 5 MG IVPUSH (22:42)
[2023-04-13] MEDS: Albuterol Sulfate 90 MCG 8 GM INHALER 2 PUFF INHALE (23:46)
[2023-04-14] VITALS (9 sets, daily range): BP systolic 102–138; BP diastolic 53–78; PULSE 60–81; RESP 14–21; TEMP 36.4–37.6; O2SAT 96–99; BMI 17.5
--- NOTE | 2023-04-14 05:00 | PC.NURSE ---
assumed care of pt at 0300. pt a&o x4, pleasant, calm, and cooperative. pt ambulated to bathroom independently with steady gait. pt provided with whitney crackers, teresa anita, and warm blanket. pt denies pain but describes heaviness in chest. 20G IV to LAC patent and intact. pt awaiting bed assignment. plan of care ongoing.
[2023-04-14 05:07] LABS: MANUAL DIFF FLAG NO
[2023-04-14 05:08] LABS: Basophils Percent Auto 0.1 % (0-2); Hematocrit 36.6 % (37.0-47.0); Imm Gran Abs Auto 0.02 X10*3/uL (0.00-0.03); Imm Gran Pct Auto 0.2 % (0.0-0.4); Lymphocytes Absolute Auto 1.2 X10*3/uL (1.2-4.9); Lymphocytes Percent Auto 14.7 % (20-40); Mean Corpuscular HGB Conc 32.8 g/dl (31.0-35.0); Mean Corpuscular Volume 91.5 fL (80.0-98.0); Mean Platelet Volume 9.8 fL (9.4-12.3); Monocytes Absolute Auto 0.9 X10*3/uL (0.1-1.2); Monocytes Percent Auto 10.8 % (2-11); Neutrophils Absolute Auto 6.1 x10*3/uL (2.0-8.3); Neutrophils Percent Auto 74.2 % (45-73); Platelet Count 234 X10*3/uL (160-400); Red Cell Distribution Width 14.6 % (11.0-16.0); White Blood Count 8.2 X10*3/uL (4.8-10.8)
[2023-04-14 05:29] LABS: Anion Gap 16 (12-20); Blood Urea Nitrogen 13 mg/dL (9-16); Calcium 9.8 mg/dL (8.4-10.2); Carbon Dioxide 25 mmol/L (22-29); Chloride 106 mmol/L (96-108); Creatinine Clr Calc Pharmacy 80.3; Estimated Glomerular Filt Rate > 60; Glucose Random 104 mg/dL (60-115); Potassium 4.7 mmol/L (3.3-5.1); Sodium 142 mmol/L (135-145)
[2023-04-14] MEDS: methylPREDNISolone Sod Succ 40 MG/ML VIAL IVPUSH ×2 (05:33→18:23)
[2023-04-14] MEDS: Omeprazole 20 MG CAPSULE.DR PO (05:36)
[2023-04-14] MEDS: Albuterol Sulfate 90 MCG 8 GM INHALER 2 PUFF INHALE (05:37)
--- NOTE | 2023-04-14 05:39 | PC.NURSE ---
pt reported having tightness/wheezing with breathing. pt medicated with solumedrol and given prn albuterol inhaler per may. wctm medication effects. plan of care ongoing.
[2023-04-14] MEDS: 0.9 % Sodium Chloride Flush 3 ML SYRINGE IVFLUSH ×3 (09:03→20:39)
[2023-04-14] MEDS: Albuterol/Iprat 2.5/0.5MG 3 ML AMPUL.NEB INHALE ×3 (11:26→19:16)
--- NOTE | 2023-04-14 11:52 | MHC.CM.PN ---
Addendum entered by Mary Perez 04/14/23 12:25: TASK SENT TO [facility] TO OBTAIN PCP INFO CM ATTEMPTED TO CONTACT [facility] X 2 TO OBTAIN A COPY OF THE HCP, FIRST CALL WAS DISCONNECTED, 2ND NO ANSWER Original Note: PT REPORTS SHE LIVES AT HOME WITH HER 3 KIDS SHE IS INDEPENDENT WITH CARE AND HAS NO SERVICES SHE HAS A NEBULIZER FOR DME BUT REPORTS IT IS ABOUT 10 YEARS OLD AND SHE IS UNSURE IF IT WORKS PROPERLY SHE SAYS SHE DID A HCP AT [facility] IN THE PAST, COPY REQUESTED PCP AT [facility], SHE DOES NOT KNOW THE NAME DCP: HOME NO SERVICES VIA PRIVATE TRANSPORT
[2023-04-14] MEDS: estradioL 0.5 MG TABLET 2 MG PO (12:34)
--- NOTE | 2023-04-14 13:12 | P.PNIM_ITS ---
Subjective Subjective Date of Service: 04/14/23 Interval History: Complaining of shortness of breath, dry cough and chest tightness, denies fevers, no chills, no other acute issues overnight tolerating diet no nausea no vomiting, no lightheadedness or dizziness. Review of Systems All other system reviewed and negative. Physical Exam 2 Vital Signs: Vital Signs: Last Vital Signs Temp 98.4 F 04/14/23 11:28 Pulse 76 04/14/23 11:28 Resp 21 H 04/14/23 11:28 BP 126/60 04/14/23 11:28 Pulse Ox 99 04/14/23 08:00 O2 Del Method Room Air 04/14/23 11:28 BMI result Body Mass Index 17.5 Const: Other: General resting comfortably in no acute distress. Anicteric sclera Neck supple no JVD. CVS regular rate rhythm, Respiratory lungs diminished breath sounds, bilateral expiratory wheeze,no respiratory distress. Gastrointestinal abdomen soft, non tender, bowel sounds audible, no guarding , no rigidity. Extremities no edema. Neuro nonfocal , speech clear. Skin no rash Objective Data Active Medications Albuterol Sulfate (Albuterol Sulfate 90 Mcg 8 Gm Inhaler) 2 puff INHALE Q4H PRN PRN Reason: shortness of breath or wheezing Last Admin: 04/14/23 05:37 Dose: 2 puff Documented By: IFEOMA Albuterol/Ipratropium (Albuterol/Iprat 2.5/0.5mg 3 Ml Ampul.Neb) 3 ml INHALE RQ4H WHILE AWAKE [facility] Last Admin: 04/14/23 11:26 Dose: 3 ml Documented By: CHRISTIAN Estradiol (Estradiol 0.5 Mg Tablet) 2 mg PO DAILY [facility] Last Admin: 04/14/23 12:34 Dose: 2 mg Documented By: ROGER Guaifenesin/Dextromethorphan (Guaifenesin Dm 100/10/5 Ml 5 Ml Syrup) 10 ml PO Q6H PRN PRN Reason: cough Azithromycin 500 mg/ Sodium (Chloride) 250 mls @ 125 mls/hr IV Q24H [facility] Last Infusion: 04/13/23 22:41 Dose: Infused Documented By: MANUELA Methylprednisolone Sodium Succinate (Methylprednisolone Sod Succ 40 Mg/Ml Vial) 40 mg IVPUSH Q12H [facility] Last Admin: 04/14/23 05:33 Dose: 40 mg Documented By: IFEOMA Nicotine Polacrilex (Nicotine Polacrilex Lozenge 2 Mg Lozenge) 2 mg BUCCAL Q2H PRN PRN Reason: Nicotine Cravings Omeprazole (Omeprazole 20 Mg Capsule.Dr) 20 mg PO DAILY@0630 [facility] Last Admin: 04/14/23 05:36 Dose: 20 mg Documented By: IFEOMA Ondansetron HCl (Ondansetron Hcl 4 Mg/2 Ml Vial) 4 mg IVPUSH Q6H PRN PRN Reason: Nausea and Vomiting Last Admin: 04/13/23 19:57 Dose: 4 mg Documented By: MANUELA Sodium Chloride (0.9 % Sodium Chloride Flush 3 Ml Syringe) 3 ml IVFLUSH QSHIFT [facility] Last Admin: 04/14/23 09:03 Dose: 3 ml Documented By: KRYSTYNA Labs 04/14/23 05:01 04/14/23 05:01 Labs: Laboratory Results - last 24 hr 04/13/23 04/13/23 04/13/23 13:18 15:48 18:30 MCV 90.8 MCH 30.9 MCHC 34.1 RDW 14.3 Plt Count 230 MPV 9.6 Immature Gran % (Auto) 0.3 Neut % (Auto) 95.5 H Lymph % (Auto) 3.5 L [place] % (Auto) 0.6 L Eos % (Auto) 0.0 Baso % (Auto) 0.1 Lymph # (Auto) 0.4 L [place] # (Auto) 0.1 Eos # (Auto) 0.0 Baso # (Auto) 0.0 Abs Immat Gran (auto) 0.03 Absolute Neuts (auto) 10.2 H Absolute Nucleated RBC 0.000 Nucleated RBC % (auto) 0.0 Smear Tech's Comments VERIFIED PT 11.4 INR 0.9 D-Dimer High Sensitivty < 150 Anion Gap 14 Estim Creat Clear Calc 88.9 Estimated GFR > 60 Random Glucose 133 H Calcium 9.0 Magnesium 3.1 H Total Bilirubin 0.2 AST 23 ALT 14 Alkaline Phosphatase 62 Total Protein 7.1 Albumin 4.0 Lipase 10 COVID-19 (JOCELIN) Negative COVID-19 Clin Com See Note Influenza Type A (JOSELIN) Negative Influenza Type A (PCR) NEGATIVE Influenza Type B (JOSELIN) Negative Influenza Type B (PCR) NEGATIVE Influenza A & B Note See Note RSV RNA Qual (PCR) NEGATIVE SARS-CoV-2 RNA (RT-PCR) NEGATIVE 04/14/23 05:01 MCV 91.5 MCH 30.0 MCHC 32.8 RDW 14.6 Plt Count 234 MPV 9.8 Immature Gran % (Auto) 0.2 Neut % (Auto) 74.2 H Lymph % (Auto) 14.7 L [place] % (Auto) 10.8 Eos % (Auto) 0.0 Baso % (Auto) 0.1 Lymph # (Auto) 1.2 [place] # (Auto) 0.9 Eos # (Auto) 0.0 Baso # (Auto) 0.0 Abs Immat Gran (auto) 0.02 Absolute Neuts (auto) 6.1 Absolute Nucleated RBC 0.000 Nucleated RBC % (auto) 0.0 Smear Tech's Comments PT INR D-Dimer High Sensitivty Anion Gap 16 Estim Creat Clear Calc 80.3 Estimated GFR > 60 Random Glucose 104 Calcium 9.8 D Magnesium Total Bilirubin AST ALT Alkaline Phosphatase Total Protein Albumin Lipase COVID-19 (JOCELIN) COVID-19 Clin Com Influenza Type A (JOSELIN) Influenza Type A (PCR) Influenza Type B (JOSELIN) Influenza Type B (PCR) Influenza A & B Note RSV RNA Qual (PCR) SARS-CoV-2 RNA (RT-PCR) Assessment and Plan (1) Asthma with acute exacerbation: Status: Acute Plan 32-year-old female with past medical history significant for mild intermittent asthma, endometriosis presented to [facility] with few day history of shortness of breath and cough, Daughter sick with similar symptoms. Acute mild intermittent asthma exacerbation Persistent symptoms of shortness of breath, chest tightness and cough Chest x-ray showed no acute cardiopulmonary disease Continue IV Solu Medrol, DuoNeb updraft scheduled and prn Cough medication, IV azithromycin D2/5 Supportive care oxygen as needed Tobacco use disorder counseling done recommend nicotine gum. DVT prophylaxis early ambulation / low risk patient need continued inpatient hospitalization for treatment of asthma exacerbation requiring IV steroids and scheduled updraft treatment. Quality Stroke Does the patient have a stroke diagnosis?: No VTE Prior VTE?: No VTE Risk Level:: Medical - low VTE Device Contraindication: Treatment Not Indicated VTE Drug Contraindication: Treatment Not Indicated
[2023-04-14] MEDS: Azithromycin 500 MG in 0.9 % Sodium Chloride 250 ML 125 MG IV (18:23)
[2023-04-14] MEDS: ondansetron HCL 4 MG/2 ML VIAL IVPUSH ×2 (18:31→22:30)
[2023-04-14] MEDS: HYDROmorphone HCl 0.5 MG/0.5 ML SYRINGE IVPUSH (22:25)
--- NOTE | 2023-04-14 22:49 | MHC.PIE ---
p; pt c/o abd pain 09/16, pt reports recently developing hernia. note; pt also reports nausea with any pain med i; dr deal notified. new order dilaudid iv now, give early dose zofran now e; pedro cont to monitor
[2023-04-15] MEDS: Albuterol Sulfate (0.083%) 2.5 MG/3 ML VIAL.NEB INHALE (00:41)
[2023-04-15 00:42] VITALS: PULSE 69; RESP 16; O2SAT 98
[2023-04-15 03:31] VITALS: BP 121/62; PULSE 57; RESP 16; TEMP 36.5; O2SAT 100
[2023-04-15] MEDS: methylPREDNISolone Sod Succ 40 MG/ML VIAL IVPUSH (06:21)
[2023-04-15 07:37] VITALS: BP 105/57; PULSE 50; RESP 16; TEMP 36.2; O2SAT 98
[2023-04-15] MEDS: estradioL 0.5 MG TABLET 2 MG PO (08:06)
[2023-04-15] MEDS: Albuterol/Iprat 2.5/0.5MG 3 ML AMPUL.NEB INHALE ×2 (08:07→11:39)
[2023-04-15 08:08] VITALS: PULSE 50; RESP 16
[2023-04-15] MEDS: 0.9 % Sodium Chloride Flush 3 ML SYRINGE IVFLUSH (08:08)
--- NOTE | 2023-04-15 09:55 | PM.DS ---
DS: Providers Provider Date of Service: 04/15/23 Date of admission: 04/13/23 18:45 Primary care physician: Unknown Physician DS: Diagnosis Discharge Diagnosis (1) Asthma with acute exacerbation: Status: Acute DS: Summary Hospital Course Hospital Course: History of presenting illness: Date of Service: 04/13/23 Chief Complaint: Shortness of breath 32-year-old female with past medical history of mild intermittent asthma presented to ED for shortness of breath of 3 days' duration associated with dry cough, chest discomfort, No associated fever, no chills, no sore throat, no earache, no headache, no dizziness, daughter is sick for last 5 days with cold, no recent travel, patient smokes half pack per day, patient has been using her updraft treatment every 2-3 hours but since was not getting better therefore came for evaluation chest x-ray showed hyperinflation, WBC unremarkable patient treated in the emergency room, with IV magnesium, IV prednisone and 2 rounds of albuterol treatment without significant treatment therefore being admitted for treatment of asthma exacerbation. Hospital course: 32-year-old female with past medical history significant for mild intermittent asthma, endometriosis presented to [facility] with few day history of shortness of breath and cough, noted to have diminished breath sounds, bilateral rhonchi, did not respond to updraft treatment, IV magnesium and IV steroids in the ER, admitted to the hospital with a diagnosis of Acute mild intermittent asthma exacerbation, chest x-ray showed no acute cardiopulmonary disease treated with IV steroids, DuoNeb updraft scheduled and as needed cough medication and azithromycin patient responded well to above treatment, shortness of breath and cough is significantly improved has had no fever chills therefore being discharged home on prednisone 20 mg daily for 5 days recommend to continue DuoNeb updraft and albuterol 2 puffs q.3 hours as needed recommend to abstain from smoking counseling done nicotine gums ordered. Patient noted to have a BMI of 17.5 consistent with underweight recommended high-calorie diet. Time Attestation Discharge coordination time: Greater than 30 minutes Quality: Safe Use of Opioids Does Pt have an Active Cancer Diagnosis on the Problem List?: No Quality: Stroke Does the patient have a stroke diagnosis?: No Physical Exam Vital Signs: Vital Signs: Last Vital Signs Temp 97.2 F 04/15/23 07:37 Pulse 50 02/06/24 08:08 Resp 16 04/15/23 08:08 BP 105/57 L 04/15/23 07:37 Pulse Ox 98 04/15/23 07:37 O2 Del Method Room Air 04/15/23 07:37 BMI result Body Mass Index 17.5 Const: Other: General resting comfortably in no acute distress. Anicteric sclera Neck supple no JVD. CVS regular rate rhythm, Respiratory lungs clear to auscultation no wheeze, no rhonchi Gastrointestinal abdomen soft, non tender, bowel sounds audible, no guarding , no rigidity. Extremities no edema. Neuro nonfocal , speech clear. Skin no rash Discharge Plan Discharge Anticipated Discharge Date/Time: 04/15/23 09:50 Patient Disposition: Home, Self-Care Discharge Diagnosis: Acute mild intermittent asthma exacerbation Tobacco use disorder Referrals: Physician,Unknown J [Primary Care Provider] - 1 Week Discharge Medications: New nicotine (polacrilex) 2 mg Lozenge 2 mg buccal Q2H PRN (Reason: Nicotine Cravings) Qty: 72 0RF Continued albuterol sulfate 90 mcg/actuation aerosol powdr breath activated 2 inh inhalation Q4-6H PRN (Reason: shortness of breath or wheezing) Qty: 1 0RF estradiol 2 mg tablet 2 mg PO DAILY Changed prednisone 20 mg tablet 20 mg PO DAILY 5 Days Qty: 10 0RF Discharge Orders: Discharge Order (Routine); Ordered 04/15/23 Ordered By: Jolly Ponce Diet: Advance to usual diet Activity on Discharge: As tolerated Stand Alone Forms: Patient Portal Discharge page Care Plan Goals: Strongly recommend to abstain from smoking Take prednisone 20 mg 1 tablet daily for 5 more days Use albuterol updraft 4 times a day and use albuterol MDI 2 puffs Q 3 hours as needed Avoid crowded places and allergens Health Concerns: Use Nicorette gums for nicotine craving Plan of Treatment: Outpatient follow-up with primary care physician call for appointment Assessment: As above
--- NOTE | 2023-04-15 10:18 | MHC.CM.PN ---
DP: PT HAS BEEN MEDICALLY CLEARED FOR DC HOME, NO SERVICES. PT HAS OWN RIDE HOME.
[2023-04-15 11:25] VITALS: BP 120/55; PULSE 75; RESP 18; TEMP 36.3; O2SAT 100
[2023-04-15 11:39] VITALS: PULSE 60; RESP 15
--- NOTE | 2023-04-15 12:36 | P.CDIM_ITS ---
PROVIDER RESPONSE TEXT: To clarify, the appropriate diagnosis supported by the clinical indicators: Underweight QUERY TEXT: PHYSICIAN'S DOCUMENTATION REQUEST Date of Query: 04/15/2023 08:28 AM EST Patient Name: Cesar Perez Admit Date: 04/13/2023 Dear Jolly Ponce, A review of the medical record indicates additional documentation may be needed. Please review below and update the documentation accordingly. Clinical Indicators: Clinical nutrition assessment: Patient is underweight with a BMI 17.5 52.3kg Adding Magic cup TID If possible, please provide an associated diagnosis related to the abnormal BMI, such as: Underweight Weight loss Anorexia Other (explain) Clinically unable to determine (explain) Thank you, Lauren Butterfield, CCS, CDIS Use of terms such as suspected, likely, concern for, or probable (associated with a specific diagnosi s that is being evaluated, monitored, or treated as if it exists) are acceptable and can be coded in the inpatient se tting, when documented at the time of discharge. Please use your independent medical judgment in providing your response. THIS QUERY IS PART OF THE PERMANENT MEDICAL RECORD
== END 2023-04-15 13:21 | disposition home or self-care (01) | DRG 141 ==
LOC: HO.ED 14:12 → HO.EDOVER 18:52 → HO.IMC 04-14 07:34 → HO.S3 04-14 16:09
PROVIDERS: Physician Assistant; Physician Assistant Medical; Admitting Provider Physician Assistant; Emergency Provider Student in an Organized Health Care Education/Training Program; PCP Nurse Practitioner Family; Visit Provider Hospitalist
DX: J45.21 Mild intermittent asthma with (acute) exacerbation (principal); F17.210 Nicotine dependence, cigarettes, uncomplicated; R63.6 Underweight; Z20.822 Contact with and (suspected) exposure to COVID-19; Z68.1 Body mass index [BMI] 19.9 or less, adult; Z23 Encounter for immunization; Z71.6 Tobacco abuse counseling; Z79.52 Long term (current) use of systemic steroids; Z79.899 Other long term (current) drug therapy
CPT/HCPCS: 0241U; 36415; 71045; 80048; 80053; 83690; 83735; 85025; 85379; 85610; 87502; 87635; 90686; 94640; 99221; 99285; J0456; J1170; J2405; J2765; J2920; J3475

== ENCOUNTER → 2023-04-13 18:45 | Outpatient (BNV) | payer OTHER, SELFPAY | PROVIDERS: Admitting Provider Physician Assistant; Emergency Provider Student in an Organized Health Care Education/Training Program; Visit Provider Hospitalist | DX: J45.21 Mild intermittent asthma with (acute) exacerbation (principal); R63.6 Underweight | CPT/HCPCS: 99223; 99233; 99239 ==

== ENCOUNTER 2023-06-16 16:21 | Emergency (ER) | payer OTHER, SELFPAY ==
--- NOTE | ~2023-06-16 | CT_ITS ---
EXAMINATION: CT ABDOMEN AND PELVIS WITH CONTRAST CLINICAL INFORMATION: Central abdominal pain and tenderness. COMPARISON: CT abdomen and pelvis dated 06/19/2022. TECHNIQUE: Multidetector volumetric images were obtained from the superior aspect of the liver through the pubic symphysis following administration 85 mL of Omnipaque 350 intravenous contrast. Sagittal and coronal reformatted images were obtained on the technologist's workstation. Oral contrast: No This CT examination was performed using dose optimization techniques as appropriate, variously including the following: *Automated exposure control *Adjustment of mA and/or kV according to patient size (this includes techniques or standardized protocols for targeted exams where dose is matched to indication/reason for exam; i.e. extremities or head) *Use of iterative reconstruction technique DLP: 279 mGy-cm FINDINGS: LUNG BASES: The visualized lung bases are unremarkable. LIVER, GALLBLADDER, AND BILIARY TREE: The liver is normal in size, shape, and attenuation. No focal hepatic lesion or biliary ductal dilatation is present. The gallbladder is unremarkable with no evidence of radiopaque gallstones, gallbladder wall thickening, or obvious pericholecystic inflammatory changes. PANCREAS: Unremarkable. SPLEEN: Unremarkable. ADRENAL GLANDS: Unremarkable. KIDNEYS AND URETERS: The kidneys are normal in size, shape, and attenuation. No hydronephrosis, hydroureter, or calculi seen. At the upper pole of the left kidney (05/08/2009), a 1.4 cm benign, simple cyst is seen, for which no imaging follow-up No perinephric stranding. BLADDER: Decompressed and otherwise unremarkable. GASTROINTESTINAL TRACT: The small and large bowel are unremarkable. The appendix is unremarkable. ABDOMINAL WALL: No significant hernia is appreciated. LYMPH NODES: Normal. VASCULAR: Unremarkable. PELVIC VISCERA: Surgically absent. No pelvic mass, free fluid or adenopathy is seen. OSSEOUS STRUCTURES: Unremarkable. CT/CT abdomen pelvis w IV con IMPRESSION: No significant abnormality. Fleischner guidelines were followed.
[2023-06-16 16:57] VITALS: BP 114/76; PULSE 65; RESP 20; TEMP 36.9; O2SAT 99; BMI 16.7
--- NOTE | 2023-06-16 17:00 | ED_ITS ---
HPI - General Adult General Chief complaint: Abdominal Pain Stated complaint: abd pain Time Seen by Provider: 06/16/23 19:51 History of Present Illness HPI narrative: The patient is a 32-year-old who says that she has a history of a hysterectomy and she has also had a laparoscopic exploratory surgery in the past but no other abdominal surgeries. Over the last year the patient has felt that there has been a small lump present intermittently in the midline of her abdomen above the belly button. Over the last week the patient feels that the lump has been persistent and not intermittent and has become gradually more and more painful over the last several days. She has not had any associated fever, sweats, chills. She has had no vomiting. She has been having bowel movements. She has not eaten anything today however because of the abdominal pain. Last meal was yesterday. Related Data Home Medications ?Medication ?Instructions ?Recorded ?Confirmed estradiol 2 mg tablet 2 mg PO DAILY 04/13/23 04/13/23 Previous Rx's ?Medication ?Instructions ?Recorded albuterol sulfate 90 mcg/actuation 2 inh inhalation Q4-6H PRN 03/11/23 breath activated powder inhaler shortness of breath or wheezing #1 ea nicotine (polacrilex) 2 mg buccal 2 mg buccal Q2H PRN Nicotine 04/15/23 lozenge Cravings #72 ea prednisone 20 mg tablet 20 mg PO DAILY 5 days #10 tabs 04/15/23 Allergies Allergy/AdvReac Type Severity Reaction Status Date / Time blueberry [BLUEBERRY] Allergy Unknown UNKNOWN Verified 06/16/23 16:59 Review of Systems 2 Review of Systems: Yes all other systems are reviewed and are negative [facility] Social History Social History Household Members: Children Housing: Apartment Do you presently have visiting nurse or other home services: No Alcohol intake: never Patient Tobacco Use Status: Current everyday Tobacco user Tobacco use type: Cigarette Cigarette Packs Per Day: 0.05 Cigarettes Per Day: 1.0 Smoked in Last 30 Days: Yes Second Hand Smoke Exposure: No Use of substances other than those prescribed or required for medical reasons: No Advance Directives: No Advance Directives Information Provided: No Patient : No service: No Physical Exam ED Vital Signs: Vital Signs - 24 hr 06/17/23 01:29 06/17/23 01:52 06/17/23 01:53 Temperature 97.5 F 97.9 F 97.9 F Pulse Rate 50 56 55 Respiratory Rate 16 16 16 Blood Pressure 110/49 L 122/77 122/77 Pulse Oximetry 98 99 Oxygen Delivery Method Room Air Room Air BMI result Body Mass Index 16.7 Const Other: The patient is a very thin 32-year-old who was awake and alert and looks mildly uncomfortable but not acutely toxic. HENMT Other: Face is symmetrical. Mucous membranes moist. Eyes Other: Pupils are round equal, conjunctivae are clear, extraocular movements intact Neck Neck: Yes no JVD Resp Effort & Inspection: normal respiratory effort Auscultation: clear to auscultation bilaterally Cardio Rate: regular rate Rhythm: regular rhythm Heart sounds: S1 normal heart sound present and S2 normal heart sound present GI Other: The abdomen is flat and soft. In the midline just above the umbilicus was a very small nodule that was palpable and tender. I applied some pressure to this area with my hand and had the patient take several deep breaths. Eventually nodule was no longer palpable. The rest of the abdomen seems soft and not significantly tender. Skin Other: Skin is dry and unremarkable. Neuro Other: The patient is awake, alert, appropriate, grossly neurologically intact. Extrem Other: No peripheral edema. Course Course Course Narrative: RME: 32-year-old female known history of abdominal hernia presents to ED for umbilical hernia abdominal pain with tenderness. Patient states no bowel movement for the past 4 days. Labs ordered. Most likely will need Abdomen CT scan. Medications Administered Discontinued Medications Generic Name Dose Route Start Last Admin Trade Name Dania PRN Reason Stop Dose Admin Sodium Chloride 1,000 mls @ 999 mls/hr 06/16/23 20:30 06/16/23 23:30 Ns IV 06/16/23 21:30 Infused .Q1H1M MELVIN Infusion Sodium Chloride 1,000 mls @ 999 mls/hr 06/16/23 22:00 06/16/23 22:48 Ns IV 06/16/23 23:00 Not Given .Q1H1M MELVIN Iohexol 100 ml 06/16/23 20:40 06/16/23 20:40 Iohexol 350 Mg/Ml 100 Ml Infus..Btl IV 06/16/23 20:41 85 ml ONCE ONE Administration Ketorolac Tromethamine 10 mg 06/16/23 21:52 06/16/23 22:07 Ketorolac Tromethamine 15 Mg/Ml Vial IVPUSH 06/16/23 21:53 10 mg ONCE ONE Administration Medical Decision Making Medical Decision Making [facility] Narrative: The patient presented complaining of mid abdominal pain. The patient attributed the pain to what she believes is a possible ventral hernia just above the umbilicus. On my exam the patient has just a tiny nodule which could represent a tiny hernia but I am somewhat doubtful. I applied some pressure to this nodule and had the patient take several deep breaths. After that I could not really appreciate the presence of the nodule anymore. The patient also palpated her own abdomen and could not feel what she thought was the possible hernia anymore either. Despite this the patient claimed that she did not feel any better. I observed her for awhile and she continued to state that she was having ongoing abdominal pain. At that point I ordered a CT scan of the abdomen and pelvis. There was a long delay in the reading of the CT scan. During that time the patient had fallen asleep. The CT scan is negative. The patient's labs are all quite unremarkable. I woke the patient up and explained that she does not seem to have any concerning findings on the CT scan and that she could be discharged. Lab Data 06/16/23 18:51 06/16/23 18:51 Labs: Lab Results 06/16/23 06/16/23 Range/Units 18:51 19:46 WBC 6.6 (4.8-10.8) X10*3/uL RBC 4.13 L (4.20-5.50) X10*6/uL Hgb 13.0 (12.0-16.0) g/dl Hct 38.3 (37.0-47.0) % MCV 92.7 (80.0-98.0) fL MCH 31.5 (27.0-33.0) pg MCHC 33.9 (31.0-35.0) g/dl RDW 13.5 (11.0-16.0) % Plt Count 212 (160-400) X10*3/uL MPV 9.9 (9.4-12.3) fL Immature Gran % (Auto) 0.2 (0.0-0.4) % Neut % (Auto) 53.2 (45-73) % Lymph % (Auto) 31.2 (20-40) % [place] % (Auto) 6.5 (2-11) % Eos % (Auto) 8.4 H (0-4) % Baso % (Auto) 0.5 (0-2) % Lymph # (Auto) 2.1 (1.2-4.9) X10*3/uL Miller # (Auto) 0.4 (0.1-1.2) X10*3/uL Eos # (Auto) 0.6 H (0.0-0.4) X10*3/uL Baso # (Auto) 0.0 (0.0-0.2) X10*3/uL Abs Immat Gran (auto) 0.01 (0.00-0.03) X10*3/uL Absolute Neuts (auto) 3.5 (2.0-8.3) x10*3/uL Absolute Nucleated RBC 0.000 (0.0-0.012) X10*3/uL Nucleated RBC % (auto) 0.0 (0.0-0.2) /100WBC Sodium 142 (135-145) mmol/L Potassium 3.5 D (3.3-5.1) mmol/L Chloride 108 (96-108) mmol/L Carbon Dioxide 29 (22-29) mmol/L Anion Gap 9 L (12-20) BUN 7 L (9-16) mg/dL Creatinine 0.77 (0.5-1.4) mg/dL Estim Creat Clear Calc 82.5 Estimated GFR > 60 Random Glucose 87 (60-115) mg/dL Lactic Acid 1.6 (0.5-2.0) mmol/L Calcium 9.4 (8.4-10.2) mg/dL Total Bilirubin 0.5 (0.0-1.0) mg/dL AST 21 (5-31) U/L ALT 12 (0-31) U/L Alkaline Phosphatase 64 (39-117) U/L C-Reactive Protein < 0.10 (< or = 0.50) mg/dL Total Protein 7.3 (6.5-8.0) g/dL Albumin 4.1 (3.5-5.0) g/dL Lipase 17 (8-78) U/L Beta HCG, Quant < 2 mIU/mL Urine Color Yellow Urine Appearance Clear Urine pH 6.5 (5.0-9.0) Ur Specific [place] 1.015 (1.005-1.025) Urine Protein Negative (Neg-Trace) mg/dL Urine Glucose (UA) Negative (Negative) mg/dL Urine Ketones Negative (Negative) mg/dL Urine Blood Negative (Negative) Urine Nitrite Negative (Negative) Ur Leukocyte Esterase Negative (Negative) Discharge Plan Discharge Clinical Impression: Abdominal pain Patient Disposition: Home, Self-Care Additional Instructions: Your testing today is very reassuring. Your blood testing is unremarkable. The CT scan of your abdomen does not show any dangerous finding. No apparent hernia was seen. Please plan on following up soon with your regular doctor to discuss how you are doing further. Return to the emergency room if worse. Prescriptions: No Action albuterol sulfate 90 mcg/actuation aerosol powdr breath activated 2 inh inhalation Q4-6H PRN (Reason: shortness of breath or wheezing) Qty: 1 0RF estradiol 2 mg tablet 2 mg PO DAILY nicotine (polacrilex) 2 mg Lozenge 2 mg buccal Q2H PRN (Reason: Nicotine Cravings) Qty: 72 0RF prednisone 20 mg tablet 20 mg PO DAILY 5 Days Qty: 10 0RF Referrals: Shabana Soto MD [Primary Care Provider] - (abdominal pain) Interventions: ED Discharge Assessment Last Done: 06/17/23 01:53 Discharge Date/Time: 06/17/23 02:00 Print Language: Martiniquais
[2023-06-16 18:58] LABS: MANUAL DIFF FLAG NO
[2023-06-16 19:02] LABS: Basophils Percent Auto 0.5 % (0-2); Eosinophils Absolute Auto 0.6 X10*3/uL (0.0-0.4); Eosinophils Percent Auto 8.4 % (0-4); Hematocrit 38.3 % (37.0-47.0); Imm Gran Abs Auto 0.01 X10*3/uL (0.00-0.03); Imm Gran Pct Auto 0.2 % (0.0-0.4); Lymphocytes Absolute Auto 2.1 X10*3/uL (1.2-4.9); Lymphocytes Percent Auto 31.2 % (20-40); Mean Corpuscular HGB Conc 33.9 g/dl (31.0-35.0); Mean Corpuscular Hemoglobin 31.5 pg (27.0-33.0); Mean Corpuscular Volume 92.7 fL (80.0-98.0); Mean Platelet Volume 9.9 fL (9.4-12.3); Monocytes Absolute Auto 0.4 X10*3/uL (0.1-1.2); Monocytes Percent Auto 6.5 % (2-11); Neutrophils Absolute Auto 3.5 x10*3/uL (2.0-8.3); Neutrophils Percent Auto 53.2 % (45-73); Platelet Count 212 X10*3/uL (160-400); Red Blood Count 4.13 X10*6/uL (4.20-5.50); Red Cell Distribution Width 13.5 % (11.0-16.0); White Blood Count 6.6 X10*3/uL (4.8-10.8)
[2023-06-16 19:11] LABS: Lactic Acid 1.6 mmol/L (0.5-2.0)
[2023-06-16 19:21] LABS: Alanine Aminotransferase 12 U/L (0-31); Albumin Level 4.1 g/dL (3.5-5.0); Alkaline Phosphatase 64 U/L (39-117); Anion Gap 9 (12-20); Aspartate Amino Transferase 21 U/L (5-31); Bilirubin Total 0.5 mg/dL (0.0-1.0); Blood Urea Nitrogen 7 mg/dL (9-16); Calcium 9.4 mg/dL (8.4-10.2); Carbon Dioxide 29 mmol/L (22-29); Chloride 108 mmol/L (96-108); Creatinine Clr Calc Pharmacy 82.5; Estimated Glomerular Filt Rate > 60; Glucose Random 87 mg/dL (60-115); Lipase 17 U/L (8-78); Potassium 3.5 mmol/L (3.3-5.1); Sodium 142 mmol/L (135-145); Total Protein 7.3 g/dL (6.5-8.0)
[2023-06-16 19:24] LABS: HCG Quantitative < 2 mIU/mL
[2023-06-16 19:44] VITALS: BP 127/72; PULSE 62; RESP 18; TEMP 36.2; O2SAT 98
[2023-06-16 19:55] LABS: Appearance Urine Clear; Color Urine Yellow; Glucose Urine UA Negative (Negative); Leukocyte Esterase Urine Negative (Negative); Nitrite Urine Negative (Negative); PH 6.5 (5.0-9.0); Specific Gravity - Urine 1.015 (1.005-1.025); Urine Blood Negative (Negative); Urine Ketones Negative (Negative); Urine Protein Negative (Neg-Trace)
[2023-06-16] MEDS: iohexoL 350 MG/ML 100 ML INFUS..BTL IV (20:40)
[2023-06-16] MEDS: 0.9 % Sodium Chloride 1,000 ML 999 ML IV (21:01)
[2023-06-16] MEDS: Ketorolac Tromethamine 15 MG/ML VIAL 10 MG IVPUSH (22:07)
--- NOTE | 2023-06-16 22:08 | PC.NURSE ---
pt medicated according to mar for 8/ pain reported. pt resting on back. awaiting CT report
[2023-06-16 22:09] LABS: C Reactive Protein < 0.10 mg/dL (< or = 0.50)
[2023-06-16 22:14] VITALS: BP 117/47; PULSE 62; RESP 17; TEMP 36.8; O2SAT 98
--- NOTE | 2023-06-16 22:48 | PC.NURSE ---
this rn discussed with dr jeffries second liter of ivf per md duplicate order this rn charted against 2nd liter in mar
[2023-06-17 01:29] VITALS: BP 110/49; PULSE 50; RESP 16; TEMP 36.4; O2SAT 98
--- NOTE | 2023-06-17 01:49 | MHC.EDTECH ---
YAW SHEPHERD SAID NO NEED TO GET BLOOD CULTURE .
[2023-06-17 01:52] VITALS: BP 122/77; PULSE 56; RESP 16; TEMP 36.6; O2SAT 99
[2023-06-17 01:53] VITALS: BP 122/77; PULSE 55; RESP 16; TEMP 36.6
== END 2023-06-17 02:00 | disposition home or self-care (01) ==
PROVIDERS: Physician Assistant; Emergency Provider Emergency Medicine; PCP Internal Medicine
DX: R10.9 Unspecified abdominal pain (principal); Z90.710 Acquired absence of both cervix and uterus
CPT/HCPCS: 36415; 74177; 80053; 81003; 83605; 83690; 84702; 85025; 86140; 87040; 96361; 96374; 99284; J1885; Q9967

== ENCOUNTER 2023-07-08 18:06 | Emergency (ER) | payer OTHER, SELFPAY ==
[2023-07-08 19:29] VITALS: BP 120/78; PULSE 58; RESP 14; TEMP 36.2; O2SAT 98; BMI 19.0
--- NOTE | 2023-07-08 19:33 | ED.ABDPAIN ---
HPI - Abdominal Pain General Chief Complaint: Abdominal Pain Stated Complaint: stomach pain/no nauseous Time Seen by Provider: 07/09/23 02:51 Source: patient Mode of arrival: ambulatory Limitations: no limitations History of Present Illness HPI narrative: 32-year-old female with a history of asthma, endometriosis who presents emergency department for evaluation of abdominal pain. Patient states she has been having abdominal pain intermittently for 1 year. She states the pain is been worse over the last 1-2 months. The patient points to her epigastric area when asked to localize the pain. She describes the pain is a squeezing sensation. She also points to her umbilical area and states she has a lump in this area that is gotten bigger in his painful when she pushes on it. She states that her abdominal pain is immediately worse after eating or drinking. She denied fever or chills. She denied nausea vomiting or diarrhea. Patient was seen in the emergency department on 06/16/2023 for similar pain. At that time she had a CT scan of the abdomen pelvis without IV contrast that did not reveal a clear cause for the pain, there was no evidence for hernia noted. She states that she has the same pain today that she had a previous visit. Related Data Home Medications ?Medication ?Instructions ?Recorded ?Confirmed estradiol 2 mg tablet 2 mg PO DAILY 04/13/23 04/13/23 Previous Rx's ?Medication ?Instructions ?Recorded albuterol sulfate 90 mcg/actuation 2 inh inhalation Q4-6H PRN 03/11/23 breath activated powder inhaler shortness of breath or wheezing #1 ea nicotine (polacrilex) 2 mg buccal 2 mg buccal Q2H PRN Nicotine 04/15/23 lozenge Cravings #72 ea prednisone 20 mg tablet 20 mg PO DAILY 5 days #10 tabs 04/15/23 aluminum hydrox-magnesium carb 254 10 ml PO QID PRN dyspepsia #355 mL 07/09/23 mg-237.5 mg/5 mL oral suspension (Gaviscon Extra Strength) omeprazole 20 mg capsule,delayed 20 mg PO DAILY 30 days #30 caps 07/09/23 release Allergies Allergy/AdvReac Type Severity Reaction Status Date / Time blueberry [BLUEBERRY] Allergy Unknown UNKNOWN Verified 07/08/23 19:32 Review of Systems Review of Systems Yes all other systems are reviewed and are negative [facility] Social History Social History Household Members: Children Housing: Apartment Do you presently have visiting nurse or other home services: No Alcohol intake: never Patient Tobacco Use Status: Current everyday Tobacco user Tobacco use type: Cigarette Cigarette Packs Per Day: 0.05 Cigarettes Per Day: 1.0 Smoked in Last 30 Days: Yes Second Hand Smoke Exposure: No Use of substances other than those prescribed or required for medical reasons: No Advance Directives: No Advance Directives Information Provided: No Do you have a plan to hurt others: No Plan Patient : No service: No Physical Exam ED Vital Signs: Vital Signs - 24 hr 07/08/23 19:29 07/08/23 23:14 07/09/23 01:24 Temperature 97.1 F 97.7 F 98.2 F Pulse Rate 58 57 57 Respiratory Rate 14 15 14 Blood Pressure 120/78 109/64 126/54 L Pulse Oximetry 98 98 100 Oxygen Delivery Method Room Air Room Air Room Air BMI result Body Mass Index 19.0 Vital signs were normal except for low heart rate of 58. Exam: General: Awake, alert in no distress Head: Normocephalic, atraumatic EENT: PERRL, Lids normal, sclera normal, conjunctiva normal, nose normal , ears normal, throat without erythema or exudates Neck: Supple, no adenopathy Lung: breath sounds symmetric, no wheezing, rales or rhonchi Chest: symmetric movement, nontender Heart: regular rate and rhythm, normal S1, S2 no murmurs or rubs Abdomen: soft, patient has moderate epigastric tenderness, she does have a small palpable mass just above the umbilicus which is tender to palpation, she has normoactive bowel sounds, there has no abdominal distention Back: no vertebral tenderness, no CVAT Extremities: no deformities, moves all extremities symmetrically Neuro: Awake, alert, oriented, normal speech, moves all extremities symmetrically Psych: Pleasant, cooperative Course Course Course Narrative: This is a rapid medical exam completed by True CARLOS: Additional HPI, ROS, PE not included below will be deferred to primary provider. Umbilical pain with concerns for hernia for the past year but now getting worse. No n/v/d. Medical Decision Making Medical Decision Making MDM Narrative: 32-year-old female with a history of asthma, endometriosis who presents emergency department for evaluation of abdominal pain intermittent x1 year, worse in the last month. Patient's pain is in the epigastric area, worse immediately after eating and drinking, she has a small lump in the superior aspect of the umbilical area which she believes is gotten larger. Patient had similar pain on 06/16/2023, was seen in the emergency department and had a CT scan abdomen pelvis without IV contrast revealed no clear finding for pain and no hernia. Vital signs were normal. Exam was remarkable for epigastric tenderness, she does have a lump in the umbilical area which is tender to palpation. Differential diagnosis: ?Includes but is not limited to gastritis, pancreatitis, umbilical hernia, fat hernia, anemia, electrolyte abnormalities Following evaluation was ordered: CBC, CMP, urinalysis, urine , magnesium Patient was initially treated with the following: Maalox 30 cc, viscous lidocaine 10 cc, 10 cc Course: 03:30 My interpretation patient's laboratory evaluation as follows: Normocytic anemia with an H&H of 11.8 and 35.1-this is chronic. CMP was normal. Urinalysis was negative. Urine test was negative. Given the fact that the patient had a normal CT scan of the abdomen pelvis without IV contrast on 06/16/2023, I doubt that the patient has an umbilical hernia since no hernia was seen on the previous CT scan. Patient does have epigastric tenderness and I believe that she has gastritis is the cause for symptoms. I did discuss this with her. She was started on Prilosec 20 mg once a day for 30 days. She was also given prescription for extra-strength Gaviscon 10 cc 4 times a day as needed for pain. She was given printed and verbal instructions discharged home. Admission/Observation Consideration of admission/observation: Escalation of care including admission/observation considered Lab Data MDM Lab Attestation statement: I reviewed the patient's lab results. 07/08/23 19:47 07/08/23 19:47 Labs: Lab Results 07/08/23 07/09/23 Range/Units 19:47 00:26 WBC 5.1 (4.8-10.8) X10*3/uL RBC 3.73 L (4.20-5.50) X10*6/uL Hgb 11.8 L (12.0-16.0) g/dl Hct 35.1 L (37.0-47.0) % MCV 94.1 (80.0-98.0) fL MCH 31.6 (27.0-33.0) pg MCHC 33.6 (31.0-35.0) g/dl RDW 13.5 (11.0-16.0) % Plt Count 204 (160-400) X10*3/uL MPV 10.1 (9.4-12.3) fL Immature Gran % (Auto) 0.2 (0.0-0.4) % Neut % (Auto) 41.1 L (45-73) % Lymph % (Auto) 43.1 H (20-40) % [place] % (Auto) 8.0 (2-11) % Eos % (Auto) 7.2 H (0-4) % Baso % (Auto) 0.4 (0-2) % Lymph # (Auto) 2.2 (1.2-4.9) X10*3/uL [place] # (Auto) 0.4 (0.1-1.2) X10*3/uL Eos # (Auto) 0.4 (0.0-0.4) X10*3/uL Baso # (Auto) 0.0 (0.0-0.2) X10*3/uL Abs Immat Gran (auto) 0.01 (0.00-0.03) X10*3/uL Absolute Neuts (auto) 2.1 (2.0-8.3) x10*3/uL Absolute Nucleated RBC 0.000 (0.0-0.012) X10*3/uL Nucleated RBC % (auto) 0.0 (0.0-0.2) /100WBC Sodium 142 (135-145) mmol/L Potassium 3.6 (3.3-5.1) mmol/L Chloride 110 H (96-108) mmol/L Carbon Dioxide 26 (22-29) mmol/L Anion Gap 10 L (12-20) BUN 15 (9-16) mg/dL Creatinine 0.85 (0.5-1.4) mg/dL Estim Creat Clear Calc 79.9 Estimated GFR > 60 Random Glucose 95 (60-115) mg/dL Calcium 9.0 (8.4-10.2) mg/dL Magnesium 1.7 (1.6-2.6) mg/dL Total Bilirubin 0.2 (0.0-1.0) mg/dL AST 26 (5-31) U/L ALT 15 (0-31) U/L Alkaline Phosphatase 70 (39-117) U/L Total Protein 6.6 (6.5-8.0) g/dL Albumin 3.6 (3.5-5.0) g/dL Urine Color Yellow Urine Appearance Clear Urine pH 6.0 (5.0-9.0) Ur Specific [place] >= 1.030 H (1.005-1.025) Urine Protein Negative (Neg-Trace) mg/dL Urine Glucose (UA) Negative (Negative) mg/dL Urine Ketones Trace (Negative) mg/dL Urine Blood Negative (Negative) Urine Nitrite Negative (Negative) Ur Leukocyte Esterase Negative (Negative) Urine RBC 0-2 (0-2) /HPF Urine WBC 0-5 (0-5) /HPF Ur Squamous Epith Cells 0-2 (0-2) /HPF Urine Bacteria None Seen (None Seen) Hyaline Casts 0-2 (0-2) /LPF Urine Test NEGATIVE (NEGATIVE) Prescription Management I considered prescription management with: Other (Proton pump inhibitor, antacid) Chronic Conditions Patient?s care impacted by: Other (Asthma) Discharge Plan Discharge Clinical Impression: Gastritis Abdominal pain Qualifiers: Abdominal location: epigastric Qualified Code(s): R10.13 - Epigastric pain Patient Disposition: Home, Self-Care Instructions: Gastritis (ED) Additional Instructions: Your blood work was unremarkable Your CT scan from your last visit on 06/16/2023 was normal in you did not have any evidence for hernia. Based on the fact that your pain gets worse immediately after you eat food, I believe that you have inflammation in your stomach (gastritis) from too much acid production. Take Prilosec (omeprazole) 20 mg pills, 1 pill once a day for 1 month. ?This medication shuts off your acid production and lets the inflammation in your stomach and esophagus heal. Take extra-strength Gaviscon 10 mL (2 tsp) 4 times a day as needed for abdominal pain. Follow-up with your doctor in 2 days. Please return to the emergency department if your symptoms get worse or if you develop any symptoms that are concerning to you. Prescriptions: New omeprazole 20 mg capsule,delayed release(DR/EC) 20 mg PO DAILY 30 Days Qty: 30 1RF Gaviscon Extra Strength 254-237.5 mg/5 mL suspension 10 ml PO QID PRN (Reason: dyspepsia) Qty: 355 0RF No Action albuterol sulfate 90 mcg/actuation aerosol powdr breath activated 2 inh inhalation Q4-6H PRN (Reason: shortness of breath or wheezing) Qty: 1 0RF estradiol 2 mg tablet 2 mg PO DAILY nicotine (polacrilex) 2 mg Lozenge 2 mg buccal Q2H PRN (Reason: Nicotine Cravings) Qty: 72 0RF prednisone 20 mg tablet 20 mg PO DAILY 5 Days Qty: 10 0RF Print Language: Dominican
[2023-07-08 19:53] LABS: MANUAL DIFF FLAG NO
[2023-07-08 19:54] LABS: Basophils Percent Auto 0.4 % (0-2); Eosinophils Absolute Auto 0.4 X10*3/uL (0.0-0.4); Eosinophils Percent Auto 7.2 % (0-4); Hematocrit 35.1 % (37.0-47.0); Hemoglobin 11.8 g/dl (12.0-16.0); Imm Gran Abs Auto 0.01 X10*3/uL (0.00-0.03); Imm Gran Pct Auto 0.2 % (0.0-0.4); Lymphocytes Absolute Auto 2.2 X10*3/uL (1.2-4.9); Lymphocytes Percent Auto 43.1 % (20-40); Mean Corpuscular HGB Conc 33.6 g/dl (31.0-35.0); Mean Corpuscular Hemoglobin 31.6 pg (27.0-33.0); Mean Corpuscular Volume 94.1 fL (80.0-98.0); Mean Platelet Volume 10.1 fL (9.4-12.3); Monocytes Absolute Auto 0.4 X10*3/uL (0.1-1.2); Neutrophils Absolute Auto 2.1 x10*3/uL (2.0-8.3); Neutrophils Percent Auto 41.1 % (45-73); Platelet Count 204 X10*3/uL (160-400); Red Blood Count 3.73 X10*6/uL (4.20-5.50); Red Cell Distribution Width 13.5 % (11.0-16.0); White Blood Count 5.1 X10*3/uL (4.8-10.8)
[2023-07-08 20:08] LABS: Alanine Aminotransferase 15 U/L (0-31); Albumin Level 3.6 g/dL (3.5-5.0); Alkaline Phosphatase 70 U/L (39-117); Anion Gap 10 (12-20); Aspartate Amino Transferase 26 U/L (5-31); Bilirubin Total 0.2 mg/dL (0.0-1.0); Blood Urea Nitrogen 15 mg/dL (9-16); Carbon Dioxide 26 mmol/L (22-29); Chloride 110 mmol/L (96-108); Creatinine Clr Calc Pharmacy 79.9; Estimated Glomerular Filt Rate > 60; Glucose Random 95 mg/dL (60-115); Magnesium 1.7 mg/dL (1.6-2.6); Potassium 3.6 mmol/L (3.3-5.1); Sodium 142 mmol/L (135-145); Total Protein 6.6 g/dL (6.5-8.0)
[2023-07-08 23:14] VITALS: BP 109/64; PULSE 57; RESP 15; TEMP 36.5; O2SAT 98
[2023-07-09 00:33] LABS: Appearance Urine Clear; Color Urine Yellow; Glucose Urine UA Negative (Negative); Leukocyte Esterase Urine Negative (Negative); Nitrite Urine Negative (Negative); Specific Gravity - Urine >= 1.030 (1.005-1.025); Urine Blood Negative (Negative); Urine Ketones Trace mg/dL (Negative); Urine Protein Negative (Neg-Trace)
[2023-07-09 00:34] LABS: UPreg QC Valid YES; Urine Pregnancy NEGATIVE (NEGATIVE)
[2023-07-09 00:38] LABS: Bacteria Urine None Seen (None Seen); Hyaline Casts Urine 0-2 /LPF (0-2); RBC Urine 0-2 /HPF (0-2); Squamous Epithelial Cell Urine 0-2 /HPF (0-2); WBC Urine 0-5 /HPF (0-5)
[2023-07-09 01:24] VITALS: BP 126/54; PULSE 57; RESP 14; TEMP 36.8; O2SAT 100
[2023-07-09] MEDS: PHENobarb/Hyoscy/Atropine/Scop 10 ML ELIXIR PO (03:25)
[2023-07-09] MEDS: Lidocaine HCl Viscous 2 % 15 ML SOLUTION 10 ML PO (03:25)
[2023-07-09] MEDS: Magnesium Hydrox/Alum Hydrox 30 ML ORAL.SUSP PO (03:25)
[2023-07-09 03:51] VITALS: BP 98/64; PULSE 50; RESP 14; TEMP 36.4; O2SAT 99
[2023-07-09 03:52] VITALS: BP 98/64; PULSE 50; RESP 14; TEMP 36.4; O2SAT 99
== END 2023-07-09 03:53 | disposition home or self-care (01) ==
PROVIDERS: Nurse Practitioner Family; Emergency Provider Emergency Medicine Emergency Medical Services; PCP Internal Medicine
DX: K29.70 Gastritis, unspecified, without bleeding (principal); R10.13 Epigastric pain
CPT/HCPCS: 36415; 80053; 81001; 81025; 83735; 85025; 99284

== ENCOUNTER 2023-08-01 12:50 | Emergency (ER) | payer OTHER, SELFPAY ==
--- NOTE | ~2023-08-01 | CT_ITS ---
EXAMINATION: CT ABDOMEN AND PELVIS WITH CONTRAST CLINICAL INFORMATION: Abdominal pain. Right lower quadrant tenderness. History of hysterectomy. COMPARISON: 06/16/2023 TECHNIQUE: Multidetector volumetric images were obtained from the superior aspect of the liver through the pubic symphysis following administration 85 mL of Omnipaque 350 intravenous contrast. Sagittal and coronal reformatted images were obtained on the technologist's workstation. Oral contrast: No This CT examination was performed using dose optimization techniques as appropriate, variously including the following: *Automated exposure control *Adjustment of mA and/or kV according to patient size (this includes techniques or standardized protocols for targeted exams where dose is matched to indication/reason for exam; i.e. extremities or head) *Use of iterative reconstruction technique DLP: 281 mGy-cm FINDINGS: LUNG BASES: The visualized lung bases are unremarkable. LIVER, GALLBLADDER, AND BILIARY TREE: The liver is normal in size, shape, and attenuation. No focal hepatic lesion or biliary ductal dilatation is present. The gallbladder is unremarkable with no evidence of radiopaque gallstones, gallbladder wall thickening, or obvious pericholecystic inflammatory changes. PANCREAS: Unremarkable. SPLEEN: Unremarkable. ADRENAL GLANDS: Unremarkable. KIDNEYS AND URETERS: The kidneys are normal in size, shape, and attenuation. No hydronephrosis, hydroureter, or calculi seen. No perinephric stranding. Contrast material is present within the renal collecting systems bilaterally, limiting sensitivity for small calculi. A 1.2 cm simple cyst in the upper pole the left kidney is unchanged. No recommend imaging follow-up BLADDER: Unremarkable. GASTROINTESTINAL TRACT: Stomach, small bowel, and colon are normal in caliber. No bowel wall thickening or surrounding inflammatory changes. Appendix is normal. No intraperitoneal free fluid or free air. ABDOMINAL WALL: No significant hernia is appreciated. LYMPH NODES: Normal. VASCULAR: Unremarkable. PELVIC VISCERA: Uterus is surgically absent. No adnexal lesions are identified. OSSEOUS STRUCTURES: No acute osseous findings. Osseous structures are unremarkable. CT/CT abdomen pelvis w IV con IMPRESSION: No acute intra-abdominal or intrapelvic abnormalities are identified. Normal appendix. Fleischner guidelines were followed.
--- NOTE | 2023-08-01 13:25 | ED.GENADULT ---
HPI - General Adult General Chief complaint: Nausea/Vomiting/Diarrhea Stated complaint: Vomiting Time Seen by Provider: 08/01/23 20:59 History of Present Illness HPI narrative: The patient is a very pleasant 32-year-old woman who says that she started to feel ill at around 05:00 this morning. She developed abdominal pain and also a lot of nausea and multiple episodes of vomiting. Ultimately she came to the hospital. There has been no diarrhea. She says that the vomiting is similar to vomiting she experienced during her pregnancies when she had hyperemesis gravidarum. That was many years ago. She says she has not use marijuana in 3 years. She has never had abdominal pain like this before. She feels it mostly in the right lower quadrant. She has no back pain. No urinary discomfort. She has a history of hysterectomy for endometriosis. Related Data Home Medications ?Medication ?Instructions ?Recorded ?Confirmed estradiol 2 mg tablet 2 mg PO DAILY 04/13/23 04/13/23 Previous Rx's ?Medication ?Instructions ?Recorded albuterol sulfate 90 mcg/actuation 2 inh inhalation Q4-6H PRN 03/11/23 breath activated powder inhaler shortness of breath or wheezing #1 ea nicotine (polacrilex) 2 mg buccal 2 mg buccal Q2H PRN Nicotine 04/15/23 lozenge Cravings #72 ea prednisone 20 mg tablet 20 mg PO DAILY 5 days #10 tabs 04/15/23 aluminum hydrox-magnesium carb 254 10 ml PO QID PRN dyspepsia #355 mL 07/09/23 mg-237.5 mg/5 mL oral suspension (Gaviscon Extra Strength) omeprazole 20 mg capsule,delayed 20 mg PO DAILY 30 days #30 caps 07/09/23 release ondansetron 4 mg disintegrating 4 mg PO Q6H PRN nausea and 08/02/23 tablet vomiting #10 tabs Allergies Allergy/AdvReac Type Severity Reaction Status Date / Time blueberry [BLUEBERRY] Allergy Unknown UNKNOWN Verified 08/01/23 13:28 Review of Systems Review of Systems: Yes all other systems are reviewed and are negative [facility] Social History Social History Household Members: Children Housing: Apartment Do you presently have visiting nurse or other home services: No Alcohol intake: never Patient Tobacco Use Status: Current everyday Tobacco user Tobacco use type: Cigarette Cigarette Packs Per Day: 0.05 Cigarettes Per Day: 1.0 Smoked in Last 30 Days: Yes Second Hand Smoke Exposure: No Use of substances other than those prescribed or required for medical reasons: Yes Substance Use Type: Marijuana Last Used Substance: Weeks (ago) Advance Directives: No Advance Directives Information Provided: No Do you have a plan to hurt others: No Plan Patient : No service: No Physical Exam ED Vital Signs: Vital Signs - 24 hr 08/01/23 13:26 08/01/23 21:43 08/02/23 00:15 Temperature 97.7 F 98.3 F 97.8 F Pulse Rate 79 66 53 Respiratory Rate 18 18 20 Blood Pressure 128/85 99/59 L 121/67 Pulse Oximetry 97 98 97 Oxygen Delivery Method Room Air Room Air Room Air 08/02/23 03:05 Temperature 98.0 F Pulse Rate 59 Respiratory Rate 16 Blood Pressure 118/62 Pulse Oximetry 98 Oxygen Delivery Method Room Air BMI result Body Mass Index 19.0 Const Other: The patient is a 32-year-old female who is awake and alert, pleasant cooperative. She looks uncomfortable. She was shivering. HENMT Other: The face is symmetrical. ?Mucous membranes moist. Eyes Other: Pupils are round equal, conjunctivae are clear, extraocular movements intact Neck Other: Moving her neck easily Resp Effort & Inspection: normal respiratory effort Auscultation: clear to auscultation bilaterally Cardio Rate: regular rate Rhythm: regular rhythm Heart sounds: S1 normal heart sound present and S2 normal heart sound present GI Other: The patient was markedly tender in the right lower quadrant Skin Other: Skin is dry and unremarkable Neuro Other: The patient is awake, alert, pleasant, cooperative. She is grossly neurologically intact Extrem Other: No peripheral edema Course Course Course Narrative: This is an RME: Additional HPI, ROS, PE not included below will be deferred to primary provider. RME assessment and note performed by: Latosha Butler PA-C This is a [id number]-female, with a hx of asthma and endometriosis, presenting to the emergency department with complaints of nausea and vomiting since 5:00AM this morning. No abdominal pain, fevers, or chills. No diarrhea. No marijuana use. Plan: Labs, UA, upreg Medications Administered Discontinued Medications Generic Name Dose Route Start Last Admin Trade Name Freq PRN Reason Stop Dose Admin Droperidol 0.625 mg 08/01/23 21:04 08/01/23 21:19 Droperidol 5 Mg/2 Ml Vial IVPUSH 08/01/23 21:05 0.625 mg ONCE ONE Administration Sodium Chloride 1,000 mls @ 999 mls/hr 08/01/23 21:15 08/01/23 22:53 Ns IV 08/01/23 22:15 Infused .Q1H1M MELVIN Infusion Sodium Chloride 1,000 mls @ 999 mls/hr 08/02/23 00:45 08/02/23 02:09 Ns IV 08/02/23 01:45 Infused .Q1H1M MELVIN Infusion Iohexol 85 ml 08/01/23 21:33 08/01/23 21:36 Iohexol 350 Mg/Ml 100 Ml Infus..Btl IV 08/01/23 21:34 85 ml ONCE ONE Administration Ketorolac Tromethamine 10 mg 08/02/23 00:26 08/02/23 00:42 Ketorolac Tromethamine 15 Mg/Ml Vial IVPUSH 08/02/23 00:27 10 mg ONCE ONE Administration Morphine Sulfate 4 mg 08/01/23 21:04 08/01/23 21:20 Morphine Sulfate 4 Mg/Ml Cartridge IVPUSH 08/01/23 21:05 4 mg ONCE ONE Administration Protocol Ondansetron HCl 4 mg 08/01/23 13:27 08/01/23 13:32 Ondansetron Odt 4 Mg Tab.Rapdis TRANSLINGU 08/01/23 13:28 4 mg ONCE ONE Administration Ondansetron HCl 4 mg 08/02/23 02:40 08/02/23 02:49 Ondansetron Hcl 4 Mg/2 Ml Vial IVPUSH 08/02/23 02:41 4 mg ONCE ONE Administration Sucralfate 1 gm 08/02/23 02:40 08/02/23 02:49 Sucralfate Oral Suspension 1 Gm/10 Ml Oral.Susp PO 08/02/23 02:41 1 gm ONCE ONE Administration Medical Decision Making Medical Decision Making MDM Narrative: The patient is a 32-year-old woman who presents with 1 day of multiple episodes of vomiting and right-sided abdominal pain. Her labs are unremarkable. Patient has a history of a hysterectomy that was apparently prompted by endometriosis. The patient says that her current pain does not feel anything like any symptoms she ever had with the endometriosis in the past. She feels the pain is above the level of any pain she had with the endometriosis (the pain is higher in her abdomen). On her exam she has tender on the right abdomen. She does not seem tender in the very low right abdomen (in the pelvis). A CT scan was done to evaluate for possible appendicitis or cholecystitis. The CT scan did not show any findings. I performed a bedside ultrasound and did not see any gallstones. The patient had persistent right-sided discomfort but was ultimately comfortable going home. I reviewed her chart and she has had this ER visits for abdominal pain and she has also had 2 previous abdominal and pelvic CT scans in the last 14 months. The patient was advised to follow up with the regular doctor. She should probably get a formal abdominal ultrasound as well. She was advised to continue her omeprazole. She was prescribed ondansetron. Lab Data 08/01/23 13:35 08/01/23 13:35 Labs: Lab Results 08/01/23 Range/Units 13:35 WBC 8.9 (4.8-10.8) X10*3/uL RBC 4.03 L (4.20-5.50) X10*6/uL Hgb 12.6 (12.0-16.0) g/dl Hct 37.0 (37.0-47.0) % MCV 91.8 (80.0-98.0) fL MCH 31.3 (27.0-33.0) pg MCHC 34.1 (31.0-35.0) g/dl RDW 12.6 (11.0-16.0) % Plt Count 237 (160-400) X10*3/uL MPV 10.0 (9.4-12.3) fL Immature Gran % (Auto) 0.4 (0.0-0.4) % Neut % (Auto) 77.4 H (45-73) % Lymph % (Auto) 15.3 L (20-40) % [place] % (Auto) 6.2 (2-11) % Eos % (Auto) 0.3 (0-4) % Baso % (Auto) 0.4 (0-2) % Lymph # (Auto) 1.4 (1.2-4.9) X10*3/uL [place] # (Auto) 0.6 (0.1-1.2) X10*3/uL Eos # (Auto) 0.0 (0.0-0.4) X10*3/uL Baso # (Auto) 0.0 (0.0-0.2) X10*3/uL Abs Immat Gran (auto) 0.04 H (0.00-0.03) X10*3/uL Absolute Neuts (auto) 6.9 (2.0-8.3) x10*3/uL Absolute Nucleated RBC 0.000 (0.0-0.012) X10*3/uL Nucleated RBC % (auto) 0.0 (0.0-0.2) /100WBC Sodium 141 (135-145) mmol/L Potassium 4.1 (3.3-5.1) mmol/L Chloride 105 (96-108) mmol/L Carbon Dioxide 28 (22-29) mmol/L Anion Gap 12 (12-20) BUN 9 (9-16) mg/dL Creatinine 0.76 (0.5-1.4) mg/dL Estim Creat Clear Calc 95.3 Estimated GFR > 60 Random Glucose 100 (60-115) mg/dL Calcium 10.2 D (8.4-10.2) mg/dL Total Bilirubin 0.3 (0.0-1.0) mg/dL Direct Bilirubin 0.1 (0.0-0.5) mg/dL AST 29 (5-31) U/L ALT 18 (0-31) U/L Alkaline Phosphatase 79 (39-117) U/L C-Reactive Protein 0.48 (< or = 0.50) mg/dL Total Protein 7.5 (6.5-8.0) g/dL Albumin 4.2 (3.5-5.0) g/dL Lipase 8 (8-78) U/L Beta HCG, Quant < 2 mIU/mL Discharge Plan Discharge Clinical Impression: Abdominal pain with vomiting Patient Disposition: Home, Self-Care Additional Instructions: Please rest and take it easy tonight. I have sent a prescription for nausea tablets to your pharmacy. This medication is ondansetron which you may use as needed for nausea. Please make sure you take your omeprazole. Your blood testing and your CT scan seem very reassuring today. Please contact your regular doctor on Friday to make a follow up appointment to discuss this episode further. Please ask your doctor to arrange formal ultrasound of your gallbladder. I suspect this will probably be unremarkable but it would be good to get a formal ultrasound in addition to the bedside ultrasound I did here in the emergency room. Return to the emergency room if worse. Prescriptions: New ondansetron 4 mg tablet,disintegrating 4 mg PO Q6H PRN (Reason: nausea and vomiting) Qty: 10 0RF No Action albuterol sulfate 90 mcg/actuation aerosol powdr breath activated 2 inh inhalation Q4-6H PRN (Reason: shortness of breath or wheezing) Qty: 1 0RF omeprazole 20 mg capsule,delayed release(DR/EC) 20 mg PO DAILY 30 Days Qty: 30 1RF Gaviscon Extra Strength 254-237.5 mg/5 mL suspension 10 ml PO QID PRN (Reason: dyspepsia) Qty: 355 0RF estradiol 2 mg tablet 2 mg PO DAILY nicotine (polacrilex) 2 mg Lozenge 2 mg buccal Q2H PRN (Reason: Nicotine Cravings) Qty: 72 0RF prednisone 20 mg tablet 20 mg PO DAILY 5 Days Qty: 10 0RF Referrals: Shabana Soto MD [Primary Care Provider] - (Abdominal pain) Interventions: ED Discharge Assessment Last Done: 08/02/23 03:05 Discharge Date/Time: 08/02/23 03:07 Print Language: Azeri
[2023-08-01 13:26] VITALS: BP 128/85; PULSE 79; RESP 18; TEMP 36.5; O2SAT 97; BMI 19.0
[2023-08-01] MEDS: Ondansetron ODT 4 MG TAB.RAPDIS TRANSLINGU (13:32)
[2023-08-01 13:40] LABS: MANUAL DIFF FLAG NO
[2023-08-01 13:50] LABS: Basophils Percent Auto 0.4 % (0-2); Eosinophils Percent Auto 0.3 % (0-4); Hemoglobin 12.6 g/dl (12.0-16.0); Imm Gran Abs Auto 0.04 X10*3/uL (0.00-0.03); Imm Gran Pct Auto 0.4 % (0.0-0.4); Lymphocytes Absolute Auto 1.4 X10*3/uL (1.2-4.9); Lymphocytes Percent Auto 15.3 % (20-40); Mean Corpuscular HGB Conc 34.1 g/dl (31.0-35.0); Mean Corpuscular Hemoglobin 31.3 pg (27.0-33.0); Mean Corpuscular Volume 91.8 fL (80.0-98.0); Monocytes Absolute Auto 0.6 X10*3/uL (0.1-1.2); Monocytes Percent Auto 6.2 % (2-11); Neutrophils Absolute Auto 6.9 x10*3/uL (2.0-8.3); Neutrophils Percent Auto 77.4 % (45-73); Platelet Count 237 X10*3/uL (160-400); Red Blood Count 4.03 X10*6/uL (4.20-5.50); Red Cell Distribution Width 12.6 % (11.0-16.0); White Blood Count 8.9 X10*3/uL (4.8-10.8)
[2023-08-01 14:09] LABS: Alanine Aminotransferase 18 U/L (0-31); Albumin Level 4.2 g/dL (3.5-5.0); Alkaline Phosphatase 79 U/L (39-117); Anion Gap 12 (12-20); Aspartate Amino Transferase 29 U/L (5-31); Bilirubin Direct 0.1 mg/dL (0.0-0.5); Bilirubin Total 0.3 mg/dL (0.0-1.0); Blood Urea Nitrogen 9 mg/dL (9-16); Calcium 10.2 mg/dL (8.4-10.2); Carbon Dioxide 28 mmol/L (22-29); Chloride 105 mmol/L (96-108); Creatinine Clr Calc Pharmacy 95.3; Estimated Glomerular Filt Rate > 60; Glucose Random 100 mg/dL (60-115); Lipase 8 U/L (8-78); Potassium 4.1 mmol/L (3.3-5.1); Sodium 141 mmol/L (135-145); Total Protein 7.5 g/dL (6.5-8.0)
[2023-08-01 14:10] LABS: HCG Quantitative < 2 mIU/mL
[2023-08-01] MEDS: 0.9 % Sodium Chloride 1,000 ML 999 ML IV (21:19)
[2023-08-01] MEDS: droPERidol 5 MG/2 ML VIAL 0.625 MG IVPUSH (21:19)
[2023-08-01] MEDS: Morphine Sulfate 4 MG/ML CARTRIDGE IVPUSH (21:20)
[2023-08-01] MEDS: iohexoL 350 MG/ML 100 ML INFUS..BTL 85 ML IV (21:36)
[2023-08-01 21:43] VITALS: BP 99/59; PULSE 66; RESP 18; TEMP 36.8; O2SAT 98
[2023-08-01 22:02] LABS: C Reactive Protein 0.48 mg/dL (< or = 0.50)
[2023-08-02 00:15] VITALS: BP 121/67; PULSE 53; RESP 20; TEMP 36.6; O2SAT 97
[2023-08-02] MEDS: Ketorolac Tromethamine 15 MG/ML VIAL 10 MG IVPUSH (00:42)
[2023-08-02] MEDS: 0.9 % Sodium Chloride 1,000 ML 999 ML IV (00:43)
[2023-08-02] MEDS: ondansetron HCL 4 MG/2 ML VIAL IVPUSH (02:49)
[2023-08-02] MEDS: Sucralfate Oral Suspension 1 GM/10 ML ORAL.SUSP PO (02:49)
[2023-08-02 03:05] VITALS: BP 118/62; PULSE 59; RESP 16; TEMP 36.7; O2SAT 98
== END 2023-08-02 03:07 | disposition home or self-care (01) ==
PROVIDERS: Physician Assistant Medical; Emergency Provider Emergency Medicine; PCP Internal Medicine
DX: R11.2 Nausea with vomiting, unspecified (principal); R10.31 Right lower quadrant pain; Z90.710 Acquired absence of both cervix and uterus
CPT/HCPCS: 36415; 74177; 80048; 80076; 83690; 84702; 85025; 86140; 96361; 96374; 96375; 99284; J1790; J1885; J2270; J2405; Q9967

== ENCOUNTER 2023-09-08 19:57 | Emergency (ER) | payer OTHER, SELFPAY ==
--- NOTE | 2023-09-08 | ECG_ITS ---
Test Reason : CHEST PAIN Blood Pressure : / mmHG Vent. Rate : 057 BPM Atrial Rate : 057 BPM P-R Int : 144 ms QRS Dur : 090 ms QT Int : 424 ms P-R-T Axes : 000 071 057 degrees QTc Int : 412 ms Sinus bradycardia Otherwise normal ECG No previous ECGs available Referred By: Generic ED Physician Electronically Signed By:SUHAIL BORRERO
--- NOTE | ~2023-09-08 | XR_ITS ---
EXAMINATION: XR CHEST CLINICAL INFORMATION: Chest pain COMPARISON: Chest radiograph 04/13/2023 TECHNIQUE: 2 views of the chest were obtained. FINDINGS: No significant abnormality is noted involving the heart, lungs, mediastinum, bony thorax or soft tissues. XR/XR chest 2V IMPRESSION: Unremarkable examination.
[2023-09-08 20:12] VITALS: BP 121/76; PULSE 57; RESP 16; TEMP 36.8; O2SAT 100; BMI 16.7
[2023-09-08 20:21] LABS: MANUAL DIFF FLAG NO
[2023-09-08 20:23] LABS: Basophils Percent Auto 0.5 % (0-2); Eosinophils Absolute Auto 0.6 X10*3/uL (0.0-0.4); Eosinophils Percent Auto 8.5 % (0-4); Hematocrit 35.1 % (37.0-47.0); Hemoglobin 12.2 g/dl (12.0-16.0); Imm Gran Abs Auto 0.01 X10*3/uL (0.00-0.03); Imm Gran Pct Auto 0.2 % (0.0-0.4); Lymphocytes Percent Auto 31.5 % (20-40); Mean Corpuscular HGB Conc 34.8 g/dl (31.0-35.0); Mean Corpuscular Hemoglobin 31.6 pg (27.0-33.0); Mean Corpuscular Volume 90.9 fL (80.0-98.0); Mean Platelet Volume 9.9 fL (9.4-12.3); Monocytes Absolute Auto 0.4 X10*3/uL (0.1-1.2); Monocytes Percent Auto 5.9 % (2-11); Neutrophils Absolute Auto 3.5 x10*3/uL (2.0-8.3); Neutrophils Percent Auto 53.4 % (45-73); Platelet Count 201 X10*3/uL (160-400); Red Blood Count 3.86 X10*6/uL (4.20-5.50); Red Cell Distribution Width 13.2 % (11.0-16.0); White Blood Count 6.5 X10*3/uL (4.8-10.8)
--- NOTE | 2023-09-08 20:23 | ED.CHESTPAIN ---
HPI - Chest Pain General Chief Complaint: Chest Pain Stated Complaint: chest pain Time Seen by Provider: 09/09/23 00:15 Source: patient Mode of arrival: ambulatory Limitations: no limitations History of Present Illness HPI narrative: Patient is a 32-year-old female who presents to the emergency department for evaluation of chest pain. She reports diffuse left anterior chest pain lasting a few seconds before self-resolving, and associated palpitations. Unable to identify exacerbating or alleviating factors. Reports symptom onset this morning, she felt some pain radiating to the left shoulder and upper arm earlier today. She states that she felt her heart racing and when she checked her pulse it is 104. She contacted her primary care doctor's office and was advised to come to the emergency department. She does admit a history of similar pain once in the past but this was ?many years ago?, she yet had a stress test and Holter monitor x2 without any identifiable cause. She denies associated dizziness, lightheadedness, neck pain, vision changes, shortness of breath, difficulty breathing, nausea, vomiting, abdominal pain, numbness or tingling of her extremities. Related Data Home Medications ?Medication ?Instructions ?Recorded ?Confirmed estradiol 2 mg tablet 2 mg PO DAILY 04/13/23 04/13/23 Previous Rx's ?Medication ?Instructions ?Recorded albuterol sulfate 90 mcg/actuation 2 inh inhalation Q4-6H PRN 03/11/23 breath activated powder inhaler shortness of breath or wheezing #1 ea nicotine (polacrilex) 2 mg buccal 2 mg buccal Q2H PRN Nicotine 04/15/23 lozenge Cravings #72 ea prednisone 20 mg tablet 20 mg PO DAILY 5 days #10 tabs 04/15/23 aluminum hydrox-magnesium carb 254 10 ml PO QID PRN dyspepsia #355 mL 07/09/23 mg-237.5 mg/5 mL oral suspension (Gaviscon Extra Strength) omeprazole 20 mg capsule,delayed 20 mg PO DAILY 30 days #30 caps 07/09/23 release ondansetron 4 mg disintegrating 4 mg PO Q6H PRN nausea and 08/02/23 tablet vomiting #10 tabs Allergies Allergy/AdvReac Type Severity Reaction Status Date / Time blueberry [BLUEBERRY] Allergy Unknown UNKNOWN Verified 09/08/23 20:15 Review of Systems Review of Systems: Yes all other systems are reviewed and are negative PMFSH Past Medical History Attestation statement: The following information was validated with the patient. Source: old records reviewed Social History Social History Household Members: Children Housing: Apartment Do you presently have visiting nurse or other home services: No Alcohol intake: never Patient Tobacco Use Status: Current everyday Tobacco user Tobacco use type: Cigarette Cigarette Packs Per Day: 0.05 Cigarettes Per Day: 1.0 Second Hand Smoke Exposure: No Substance Use Type: Marijuana Advance Directives: No Advance Directives Information Provided: No service: No Physical Exam Vital Signs: Vital Signs: Last Vital Signs Temp 98.2 F 09/08/23 20:12 Pulse 57 09/08/23 20:12 Resp 16 09/08/23 20:12 BP 121/76 09/08/23 20:12 Pulse Ox 100 09/08/23 20:12 O2 Del Method Room Air 09/08/23 20:12 BMI result Body Mass Index 16.7 Appearance: Alert.?Oriented to person, place and time. No acute distress.?Normal affect. Eyes: Pupils equal, round and reactive to light.? ENT: Pharynx normal.?? Neck: Normal inspection.? Neck supple.?? CVS: Heart sounds normal. Normal heart rate and rhythm.? Pulses normal.?? Respiratory: No respiratory distress.? Lung sounds clear to auscultation bilaterally?? Abdomen: Soft and non-tender. Normoactive bowel sounds. Skin: Skin warm and dry.? Normal skin color.? Extremities: No lower extremity edema.? No calf ttp? Neuro: Moves all extremities spontaneously. Sensation intact bilaterally. CN II-XII intact. No focal neuro deficits. Ambulates with normal steady gait. Course Course Course Narrative: RME performed by Philly Randhawa PA-C. Patient is a 32 year old assigned female at presenting to the emergency department with left sided chest pain and intermittent palpitations. Detailed physical exam and review of systems are deferred to the hospital social worker. EKG, labs, imaging, and swabs ordered. Patient placed back in the waiting room pending room availability and results. Medical Decision Making Medical Decision Making MDM Narrative: Patient is a 32-year-old female who presents to the emergency department for evaluation of chest pain as per HPI. Overall she is well-appearing, nontoxic, afebrile. She is speaking clear full sentences. No respiratory distress. No focal deficits. Currently she is asymptomatic. CBC is without leukocytosis anemia or thrombocytopenia. No significant electrolyte derangement, no NEVILLE. LFTs within normal range. High sensitive troponin below detectable limits, EKG is without acute ischemic findings, given duration of symptoms and lack of risk factors I do not suspect ACS. PERC negative unlikely pulmonary embolism. Viral panel is negative. CXR is without acute pathology. At this time I feel that she is stable for discharge home outpatient follow-up with primary care provider and strict return precautions. All questions answered. Differential Diagnosis Differential Diagnoses: The differential diagnosis associated with the presentation includes (See narrative above) Admission/Observation Consideration of admission/observation: Escalation of care including admission/observation considered Lab Data MDM Lab Attestation statement: I reviewed the patient's lab results. (See narrative above) 09/08/23 20:17 09/08/23 20:17 Labs: Lab Results 09/08/23 09/08/23 Range/Units 20:17 20:42 WBC 6.5 (4.8-10.8) X10*3/uL RBC 3.86 L (4.20-5.50) X10*6/uL Hgb 12.2 (12.0-16.0) g/dl Hct 35.1 L (37.0-47.0) % MCV 90.9 (80.0-98.0) fL MCH 31.6 (27.0-33.0) pg MCHC 34.8 (31.0-35.0) g/dl RDW 13.2 (11.0-16.0) % Plt Count 201 (160-400) X10*3/uL MPV 9.9 (9.4-12.3) fL Immature Gran % (Auto) 0.2 (0.0-0.4) % Neut % (Auto) 53.4 (45-73) % Lymph % (Auto) 31.5 (20-40) % [place] % (Auto) 5.9 (2-11) % Eos % (Auto) 8.5 H (0-4) % Baso % (Auto) 0.5 (0-2) % Lymph # (Auto) 2.0 (1.2-4.9) X10*3/uL [place] # (Auto) 0.4 (0.1-1.2) X10*3/uL Eos # (Auto) 0.6 H (0.0-0.4) X10*3/uL Baso # (Auto) 0.0 (0.0-0.2) X10*3/uL Abs Immat Gran (auto) 0.01 (0.00-0.03) X10*3/uL Absolute Neuts (auto) 3.5 (2.0-8.3) x10*3/uL Absolute Nucleated RBC 0.000 (0.0-0.012) X10*3/uL Nucleated RBC % (auto) 0.0 (0.0-0.2) /100WBC Sodium 144 (135-145) mmol/L Potassium 3.5 (3.3-5.1) mmol/L Chloride 111 H (96-108) mmol/L Carbon Dioxide 25 (22-29) mmol/L Anion Gap 12 (12-20) BUN 8 L (9-16) mg/dL Creatinine 0.79 (0.5-1.4) mg/dL Estim Creat Clear Calc 80.5 Estimated GFR > 60 Random Glucose 118 H (60-115) mg/dL Calcium 9.3 D (8.4-10.2) mg/dL Total Bilirubin 0.6 (0.0-1.0) mg/dL AST 22 (5-31) U/L ALT 15 (0-31) U/L Alkaline Phosphatase 67 (39-117) U/L Troponin I High Sens < 2.7 (<3.5-17.0) ng/L Total Protein 6.7 (6.5-8.0) g/dL Albumin 3.8 (3.5-5.0) g/dL Beta HCG, Quant < 2 mIU/mL Influenza Type A (PCR) NEGATIVE (Negative) Influenza Type B (PCR) NEGATIVE (Negative) RSV RNA Qual (PCR) NEGATIVE (Negative) SARS-CoV-2 RNA (RT-PCR) NEGATIVE (Negative) Independent Interpretation I performed an independent interpretation of an: EKG and Plain X-Ray (No consolidation or infiltrate) Interpretation: Rate: 57 Rhythm:? Sinus bradycardia Normal P waves.? Normal CHANDAN.?? Normal QRS complex.?? ST T wave :??No ST elevation, no ST depression qTC: 412 prior studies:? None available for review The study has been interpreted contemporaneously by me. Radiology Impression Discussion of test interpretation with radiology: I have reviewed the radiologist's reading. Radiologist Impression: XR/XR chest 2V IMPRESSION: Unremarkable examination. External Record Review External record reviewed: Outpatient record Prescription Management I considered prescription management with: Pain Medication (Acetaminophen/ibuprofen as needed) Discharge Plan Discharge Clinical Impression: Chest pain Patient Disposition: Home, Self-Care Instructions: Chest Pain (ED) Additional Instructions: Please follow-up with your primary care doctor. Return back to emergency department any new or worsening symptoms or concerns Prescriptions: No Action albuterol sulfate 90 mcg/actuation aerosol powdr breath activated 2 inh inhalation Q4-6H PRN (Reason: shortness of breath or wheezing) Qty: 1 0RF omeprazole 20 mg capsule,delayed release(DR/EC) 20 mg PO DAILY 30 Days Qty: 30 1RF Gaviscon Extra Strength 254-237.5 mg/5 mL suspension 10 ml PO QID PRN (Reason: dyspepsia) Qty: 355 0RF ondansetron 4 mg tablet,disintegrating 4 mg PO Q6H PRN (Reason: nausea and vomiting) Qty: 10 0RF estradiol 2 mg tablet 2 mg PO DAILY nicotine (polacrilex) 2 mg Lozenge 2 mg buccal Q2H PRN (Reason: Nicotine Cravings) Qty: 72 0RF prednisone 20 mg tablet 20 mg PO DAILY 5 Days Qty: 10 0RF Referrals: Physician,Unknown J [Primary Care Provider] - Print Language: Macedonian
[2023-09-08 20:43] LABS: Alanine Aminotransferase 15 U/L (0-31); Albumin Level 3.8 g/dL (3.5-5.0); Alkaline Phosphatase 67 U/L (39-117); Anion Gap 12 (12-20); Aspartate Amino Transferase 22 U/L (5-31); Bilirubin Total 0.6 mg/dL (0.0-1.0); Blood Urea Nitrogen 8 mg/dL (9-16); Calcium 9.3 mg/dL (8.4-10.2); Carbon Dioxide 25 mmol/L (22-29); Chloride 111 mmol/L (96-108); Creatinine Clr Calc Pharmacy 80.5; Estimated Glomerular Filt Rate > 60; Glucose Random 118 mg/dL (60-115); Potassium 3.5 mmol/L (3.3-5.1); Sodium 144 mmol/L (135-145); Total Protein 6.7 g/dL (6.5-8.0)
[2023-09-08 20:45] LABS: Troponin-I High Sensitivity < 2.7 ng/L (<3.5-17.0)
--- OUTSIDE RECORDS SUMMARY | 2023-09-08 20:46 | XMS_ITS | Continuity of Care Document ---
Author Organization [facility] Address [address] [place] [address]- Care Team Providers Care Assessment Specialist Name Role Phone Oswald Harley NP Primary Care Physicia n Encounter [facility] Date(s): 05/27/23 - 06/26/[address] [address]- Allergies, Adverse Reactions, Alerts Substance Reaction Severity [...] Given Tet/diphth/pertussis, acel (oldterm) 11/16/10 Give n 1Admin Note: VIS GIVEN 2011- Medications acetaminophen 325 mg oral tablet 650 mg, 2, tablet, By Mouth, Every 4 hours, PRN, # 50 tablet, Refills 0, Tot. Refills 0, Maintenance, as needed for fever, 10/30/21 15:13:00 EDT, Route to Pharmacy Electronically, [facility]/pharmacy #[id number],Partial fill upon patient request if the prescripti... Start Date: 10/30/21 Status: Ordered albuterol CFC free 90 mcg/inh inhalation aerosol 2, puffs, Inhalation, Every 6 hours, PRN, # 1 each, Refills 11, Tot. Refills 11, Maintenance, 04/16/23 13:07:00 EST, Aerosol, Route to Pharmacy Electronically, [id number], [facility]/pharmacy #[id number], 173, cm, 03/30/23 11:29:00 EST, H... Start Date: 04/16/23 Stop Date: 04/10/24 Status: Ordered dicyclomine 20 mg oral tablet 1 tablet = 20 mg, By Mouth, 3 times a day, For stomach cramping., # 21 tablet, 0 Refills, Maintenance, 05/24/22 11:58:00 EDT, Tablet, [facility]/pharmacy #[id number], Partial fill upon patient request if the prescription is for a schedule II opioid drug., 173, cm,... Start Date: 05/24/22 Stop Date: 05/31/22 Status: Ordered estradiol 2 mg oral tablet 1 tablet, By Mouth, Daily, # 30 tablet, 0 Refills, Maintenance, 03/05/23 16:28:00 EST, [facility] STORE [id number], 173, cm, 11/06/22 11:43:00 EDT, Height, 50, kg, 04/27/22 4:20:00 EST, Dry Weight Start Date: 03/05/23 Status: Ordered famotidine 20 mg oral tablet 20 mg, 1, tablet, By Mouth, 2 times a day, # 60 tablet, Refills 1, Tot. Refills 1, Maintenance, 06/18/23 15:56:00 EDT, Route to Pharmacy Electronically, [facility]/pharmacy #[id number], Partial fill upon patient request if the prescription is for a schedule II opi... Start Date: 06/18/23 Stop Date: 08/17/23 Status: Ordered meclizine 12.5 mg oral tablet 1 tablet = 12.5 mg, By Mouth, 3 times a day, PRN for dizziness, # 30 tablet, 0 Refills, Acute 11/08/23 12:26:00 EDT, 11/06/22 12:26:00 EDT, Tablet, [facility]/pharmacy #[id number], Partial fill upon patient request if the prescription is for a schedule II opioid d... Start Date: 11/06/22 Stop Date: 11/08/23 Status: Ordered Mylanta Maximum Strength Mallory oral suspension 10 mL, By Mouth, 3 times a day before meals and bedtime, PRN as needed to control stomach acid, for10 days, # 360 mL, 3 Refills, Acute 07/28/23 15:57:00 EDT, 06/18/23 15:57:00 EDT, Suspension, [id number], Partial fill upon patient request if... Start Date: 06/18/23 Stop Date: 07/28/23 Status: Ordered omeprazole 40 mg oral enteric [...] Refills, Maintenance, 05/26/22 8:45:00 EDT, DIS Tablet, [id number], Partial fill upon patient request if the prescription is for a schedule II opioid d... Start Date: 05/26/22 Status: Ordered ondansetron 4 mg oral tablet, disintegrating 1 tablet = 4 mg, By Mouth, Every 8 hours, PRN as needed for nausea/vomiting, # 14 tablet, 0 Refills, Maintenance, 05/26/22 9:05:00 EDT, DIS Tablet, [id number], Partial fill upon patient [...] MRI Safety Implantable Status Assigning Authority Unknown [id number] Unknown 10/04/21 Unknown Unknown Active Unknown Patient Care team information Care Team Personnel Name: Mendy Spicer RN Position: [facility] RN Member Role: Primary Care Nurse Name: Shiela Mays RN Position: [facility] RN Member Role: Primary Care Nurse Name: Ashley Fields RN Position: [facility] MR W/ Merge Member Role: Primary Care Nurse Name: Keith Stacy MD Position: [facility] DIRECTOR OF QUALITY CONTROL MD Member Role: Lifetime DIRECTOR OF QUALITY CONTROL Physician Address: Address: [address] [place] [address] Name: Robin Wagner Position: [facility] RN Member Role: Primary Care Nurse Name: Justin Francis RN Position: [facility] ED RN W/OE and Tasks Member Role: Primary Care Nurse Name: Laya Montes RN Position: [facility] RN Member Role: Primary Care Nurse Name: Alice Juarez RN Position: [facility] RN Member Role: Primary Care Nurse Name: Fela Garcia RN Position: [facility] ED RN W/OE and Tasks Member Role: Primary Care Nurse Name: Anay Rouse RN Position: [facility] RN Member Role: Primary Care Nurse Name: Jnenifer Weaver RN Position: [facility] RN Member Role: Primary Care Nurse Name: Roxana Young RN Position: [facility] ED RN W/OE and Tasks Member Role: Primary Care Nurse Name: Oswald Harley NP Position: [facility] PCO Associate Professional Member Role: PCP Address: Address: [address] [place] [id number] Name: David TIDWELL, Neda Li Position: [facility] AMB Nurse Member Role: Primary Care Nurse Care Team Related Persons Name: MCKEONMENDEL Whatley Address: home [address] [address] Name: GIANA LAMAS Address: home [address] [place] [address] Name: ROSHNI JUÁREZ Address: home [address] [place] [address] Name: ANGELICA JUÁREZ Address: home [address] [place] [address] Name: SINDHU SCHRADRE Address: home [address] [place] [address] Name: CRAIG VACA Address: home [address] [place] [address]
--- OUTSIDE RECORDS SUMMARY | 2023-09-08 20:46 | XMS_ITS | Continuity of Care Document ---
Author Organization [facility] Address [address] [place] [address]- Care Team Providers Care School Operations Manager Name Role Phone Cherri DELAROSA, Oswald Brandon Primary Care Physicia n Encounter [facility] Date(s): 08/03/23 - 09/02/23 [facility] [address] [place] [address]- Attending Physician: Admnicholas, [id number] Admitting Physician: Admtr, [id number] Referring Physician: [...] 11/16/10 Give n 1Admin Note: VIS GIVEN Medications acetaminophen 325 mg oral tablet 650 mg, 2, tablet, By Mouth, Every 4 hours, PRN, # 50 tablet, Refills 0, Tot. Refills 0, Maintenance, as needed for fever, 10/30/21 15:13:00 EDT, Route to Pharmacy Electronically, [facility]/pharmacy #[id number],Partial fill upon patient request if the prescripti... Start Date: 10/30/21 Status: Ordered Aerochamber See Instructions, # 1 each, Maintenance, always use with inhaler, 08/03/23 12:06:00 EDT, Supply, 173, cm, 08/03/23 11:28:00 EDT, Height, 52.5, kg, 06/25/23 16:33:00 EDT, Dry Weight Start Date: 08/03/23 Status: Ordered Albuterol (Eqv-Ventolin HFA) 90 mcg/inh inhalation aerosol 2 puffs, Inhalation, Every 4 hours, PRN cough, SOB, wheeze, # 18 Gm, 0 Refills, Maintenance, 08/03/23 12:06:00 EDT, [facility]/pharmacy #[id number], with dose counter. any albuterol inhaler covered by insurance is fine., 2 puffs Inhalation Every 4 hours,PRN:cough,... Start Date: 08/03/23 Status: Ordered albuterol CFC free 90 mcg/inh inhalation aerosol 2, puffs, Inhalation, Every 6 hours, PRN, # 1 each, Refills 11, Tot. Refills 11, Maintenance, 04/16/23 13:07:00 EST, Aerosol, Route to Pharmacy Electronically, [id number], [facility]/pharmacy #[id number], 173, cm, 03/30/23 11:29:00 EST, H... Start Date: 04/16/23 Stop Date: 04/10/24 Status: Ordered cetirizine 10 mg oral tablet 1 tablet = 10 mg, By Mouth, Daily, PRN allergies, # 90 tablet, 0 Refills, Maintenance, 08/03/23 12:06:00 EDT, Tablet, [facility]/pharmacy #[id number], Partial fill upon patient request if the prescription is for a schedule II opioid drug., 173, cm, 08/03/23 11:28:... Start Date: 08/03/23 Status: Ordered dicyclomine 20 mg oral tablet 1 tablet = 20 mg, By Mouth, 3 times a day, For stomach cramping., # 21 tablet, 0 Refills, Maintenance, 05/24/22 11:58:00 EDT, Tablet, [id number], Partial fill upon patient request if the prescription is for a schedule II opioid drug., 173, cm,... Start Date: 05/24/22 Stop Date: 05/31/22 Status: Ordered estradiol 2 mg oral tablet 1 tablet, By Mouth, Daily, # 30 tablet, 0 Refills, Maintenance, 03/05/23 16:28:00 EST, [id number], 173, cm, 11/06/22 11:43:00 EDT, Height, 50, kg, 04/27/22 4:20:00 EST, Dry Weight Start Date: 03/05/23 Status: Ordered famotidine 20 mg oral tablet 20 mg, 1, tablet, By Mouth, 2 times a day, # 60 tablet, Refills 1, Tot. Refills 1, Maintenance, 06/18/23 15:56:00 EDT, Route to Pharmacy Electronically, [id number], Partial fill upon patient request [...] Date: 11/06/22 Stop Date: 11/08/23 Status: Ordered omeprazole 40 mg oral enteric [...] MRI Safety Implantable Status Assigning Authority Unknown [id number] Unknown 10/04/21 Unknown Unknown Active Unknown Note * Mary Guerrero: PERFORM, SIGN, VERIFY Event Display: Patient Education/Instruction Authored Date: [facility] Clinical Summary Person Information Name ASHER MCKEON Age 21 Years 1990 12:00 AM PCP Shabana Soto MD, I PCP Reason for Visit: Allergy Info: Other Food Allergy Vital Signs Height Weight BMI Blood Pressure / Temperature Pulse Rate Respiratory Rate 02 Sat Mode of Delivery / Medication Information Acetaminophen / Hydrocodone (Vicodin 500 mg-5 mg oral tablet) 1 tablet, Oral, every 6 hours, 3 days, As Needed, Pain , Moderate, Refills: 0 Acetaminophen/Butalbital/Caffeine (Fioricet 325 mg-50 mg-40 mg oral tablet) , See Instructions, 1 tablet By Mouth Every 6 hours with maximum of 4 tablets a day, 3 times a week, As Needed, for headache, Refills: 0 Albuterol (albuterol CFC free 90 mcg/inh inhalation aerosol) 2 puffs, Inhalation, 4 times a day, 30days, As Needed, Wheezing/Shortness of Breath, Refills: 5 Epinephrine (Epipen Auto Injector 0.3 mg injectable solution) 0.3 mg, Intramuscular, once, 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, 1 doses/times, Refills: 3 Ethinyl Estradiol-Etonogestrel (NuvaRing 0.015 mg-0.120 mg vaginal ring) 1 each, Vaginally, Every 28 days, as directed, Refills: 11 Ethinyl Estradiol-Norelgestromin (Ortho Evra 24 hr transdermal film, extended release) 1 patch, Topically, every week, (apply a new patch weekly for 3 weeks, remove for 1 week, then repeat cycle), Refills: 3 MedroxyPROGESTERone (Depo-Provera Contraceptive 150 mg/ml intramuscular suspension) 1 mL, Intramuscular, Every 3 months, ADMINISTERED 05/03/11 LOT [id number] EXP 11/2013, Refills: 0 Naproxen (naproxen 500 mg oral tablet) 1 tablet, Oral, twice a day, with food, As Needed, Pain, Refills: 0 Omeprazole (omeprazole 20 mg oral enteric coated capsule) 1 capsule, Oral, Daily, Refills: 0 Ondansetron (Zofran ODT 4 mg oral tablet, disintegrating) 1 tablet, Oral, 3 times a day, As Needed,Nausea & Vomiting, Refills: 0 Problem List Date Problem 06/23/10 Asthma 10/11/10 Diamniotic-monochorionic twins If the following labs have been performed in the last year, the most recent result is displayed below. Diagnostic Results Lab Result Value Date Lead Hemoglobin A1C LDL HDL Triglycerides Total Cholesterol Disclaimer: The [...] primary care provider, you may find a [facility] provider by calling [facility] Link at [phone]. Patient Education Information Follow-up Details: Patient Education Material: Patient Care team information Care Team Personnel Name: Mendy Spicer RN Position: [facility] RN Member Role: Primary Care Nurse Name: Shiela Mays RN Position: [facility] RN Member Role: Primary Care Nurse Name: Ashley Fields RN Position: [facility] MR W/ Natalie Member Role: Primary Care Nurse Name: Keith Stacy MD Position: [facility] CONTROL SYSTEM COMPUTER SCIENTIST MD Member Role: [employer]etime CONTROL SYSTEM COMPUTER SCIENTIST Physician Address: Address: [address] [place] [address] Name: Robin Wagner Position: [facility] RN Member Role: Primary Care Nurse Name: Justin Francis RN Position: [facility] RN Member Role: Primary Care Nurse Name: Laya Montes RN Position: [facility] RN Member Role: Primary Care Nurse Name: Alice Juarez RN Position: [facility] RN Member Role: Primary Care Nurse Name: Fela Garcia RN Position: [facility] ED RN W/OE and Tasks Member Role: Primary Care Nurse Name: Anay Rouse RN Position: [facility] RN Member Role: Primary Care Nurse Name: Jennifer Weaver RN Position: [facility] RN Member Role: Primary Care Nurse Name: Roxana Young RN Position: [facility] RN Member Role: Primary Care Nurse Name: Oswald Harley NP Position: [facility] PCO Associate Professional Member Role: PCP Address: Address: [address] [place] [id number] Name: Neda Hernandez RN Position: [facility] AMB Nurse Member Role: Primary Care Nurse Care Team Related Persons Name: MENDEL MCKEON Address: home [address] [address] Name: GIANA LAMAS Address: home [address] [place] [address] Name: ROSHNI JUÁREZ Address: home [address] [place] [address] Name: ANGELICA JUÁREZ Address: home [address] [place] [address] Name: SINDHU SCHRADER Address: home [address] [place] [address] Name: CRAIG VACA Address: home [address] [place] [address]
--- OUTSIDE RECORDS SUMMARY | 2023-09-08 20:47 | XMS_ITS | Continuity of Care Document ---
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 Start Date: 10/30/21 Status: Ordered albuterol CFC free 90 mcg/inh inhalation aerosol 2, puffs, Inhalation, Every 6 hours, PRN, # 1 each, Refills 11, Tot. Refills 11, Maintenance, 10/10/21 9:46:00 EDT, Aerosol, Route to Pharmacy Electronically, [id number], [place], [place] - [id number], 173, c... Start Date: 10/10/21 Stop Date: 10/05/22 Status: Ordered dicyclomine 20 mg oral tablet 1 tablet = 20 mg, By Mouth, 3 times a day, For stomach cramping., # 21 tablet, 0 Refills, Maintenance, 05/24/22 11:58:00 EDT, Tablet, [facility]/pharmacy #1130, Partial fill upon patient request if the prescription is for a schedule II opioid drug., 173, cm,... Start Date: 05/24/22 Stop Date: 05/31/22 Status: Ordered estradiol 2 mg oral tablet 1 tablet = 2 mg, By Mouth, Daily, # 30 tablet, 0 Refills, Maintenance, 11/11/22 8:39:00 EDT, Tablet, [facility]/pharmacy #1130, Partial fill upon patient request if the prescription is for a schedule II opioid drug., 173, cm, 11/06/22 11:43:00 EDT, Height, 5... Start Date: 11/11/22 Status: Ordered famotidine 20 mg oral tablet 20 mg, 1, tablet, By Mouth, 2 times a day, # 60 tablet, Refills 0, Tot. Refills 0, Maintenance, 05/26/22 8:45:00 EDT, Route to Pharmacy Electronically, [facility]/pharmacy #[id number], Partial fill upon patient request if the prescription is for a schedule II opio... Start Date: 05/26/22 Status: Ordered famotidine 20 mg oral tablet 20 mg, 1, tablet, By Mouth, 2 times a day, # 180 tablet, Refills 0, Tot. Refills 0, Maintenance, 05/26/22 9:05:00 EDT, [facility] Partial fill upon patient request if the prescription is for a schedule II opi... Start Date: 05/26/22 Status: Ordered meclizine 12.5 mg oral tablet 1 tablet = 12.5 mg, By Mouth, 3 times a day, PRN for dizziness, # 30 tablet, 0 Refills, Acute 11/08/23 12:26:00 EDT, 11/06/22 12:26:00 EDT, Tablet, [facility]/pharmacy #1130, Partial fill upon patient request if the prescription is for a schedule II opioid d... Start Date: 11/06/22 Stop Date: 11/08/23 Status: Ordered omeprazole 40 mg oral enteric coated capsule 1 capsule = 40 mg, By Mouth, Daily, For abdominal pain/ stomach acid/ reflux, # 14 capsule, 0 Refills, Maintenance, 05/24/22 11:59:00 EDT, EC Capsule, [facility]/pharmacy #1130, Partial fill upon patient request if the prescription is for a schedule II opioi... Start Date: 05/24/22 Stop Date: 06/07/22 Status: Ordered ondansetron 4 mg oral tablet, disintegrating 1 tablet = 4 mg, By Mouth, Every 8 hours, PRN as needed for nausea/vomiting, # 12 tablet, 0 Refills, Maintenance, 05/26/22 8:45:00 EDT, DIS Tablet, [facility]/pharmacy #[id number], Partial fill upon patient request if the prescription is for a schedule II opioid d... Start Date: 05/26/22 Status: Ordered ondansetron 4 mg oral tablet, disintegrating 1 tablet = 4 mg, By Mouth, Every 8 hours, PRN as needed for nausea/vomiting, # 14 tablet, 0 Refills, Maintenance, 05/26/22 9:05:00 EDT, DIS Tablet, [facility]/pharmacy #1130, Partial fill upon patient request [...] MRI Safety Implantable Status Assigning Authority Unknown [id number] Unknown 10/04/21 Unknown Unknown Active Unknown Patient Care team information Care Team Personnel Name: Mendy Spicer RN Position: [facility] RN Member Role: Primary Care Nurse Name: Shiela Mays RN Position: [facility] RN Member Role: Primary Care Nurse Name: Ashley Fields RN Position: [facility] MR W/ Merge Member Role: Primary Care Nurse Name: Keith Stacy MD Position: [facility] PREPARER SAMPLES AND REPAIRS MD Member Role: Lifetime PREPARER SAMPLES AND REPAIRS Physician Address: Address: [address] [place] [address] Name: Robin Wagner Position: [facility] RN Member Role: Primary Care Nurse Name: Justin Francis RN Position: [facility] ED RN W/OE and Tasks Member Role: Primary Care Nurse Name: Laya Montes RN Position: [facility] RN Member Role: Primary Care Nurse Name: Alice Juarez RN Position: [facility] RN Member Role: Primary Care Nurse Name: Fela Garcia RN Position: [facility] ED RN W/OE and Tasks Member Role: Primary Care Nurse Name: Anay Rouse RN Position: [facility] RN Member Role: Primary Care Nurse Name: Jennifer Weaver RN Position: [facility] RN Member Role: Primary Care Nurse Name: Roxana Young RN Position: [facility] RN Member Role: Primary Care Nurse Name: Oswald Harley NP Position: [facility] PCO Associate Professional Member Role: PCP Address: Address: [address] [place] [id number] Name: David TIDWELL, Neda Li Position: [facility] AMB Nurse Member Role: Primary Care Nurse Care Team Related Persons Name: MENDEL MCKEON Address: home [address], [place] [address] Name: GIANA LAMAS Address: home [address] [place] [address] Name: ROSHNI JUÁREZ Address: [place] [address] Name: SINDHU SCHRADER Address: home [address] [place] [address] Name: CRAIG VACA Address: home [address] [place] [address]
--- OUTSIDE RECORDS SUMMARY | 2023-09-08 20:47 | XMS_ITS | Continuity of Care Document ---
Author Organization [facility] Address [address] [place] [address]- Care Team Providers Care Custom Miller Name Role Phone Oswald Harley NP Primary Care Physicia n Encounter [facility] [place] Date(s): 04/17/23 - 05/17/[address] [address]- Allergies, Adverse Reactions, Alerts Substance Reaction Severity [...] Route to Pharmacy Electronically, [facility]/pharmacy #[id number],Partial fill upon patient request if the prescripti... Start Date: 10/30/21 Status: Ordered albuterol CFC free 90 mcg/inh inhalation aerosol 2, puffs, Inhalation, Every 6 hours, PRN, # 1 each, Refills 11, Tot. Refills 11, Maintenance, 04/16/23 13:07:00 EST, Aerosol, Route to Pharmacy Electronically, [id number], [facility]/pharmacy #1130, 173, cm, 03/30/23 11:29:00 EST, H... [...] tablet, 0 Refills, Maintenance, 03/05/23 16:28:00 EST, [facility] STORE 29515, 173, cm, 11/06/22 11:43:00 EDT, Height, 50, kg, 04/27/22 4:20:00 EST, Dry Weight Start Date: 03/05/23 Status: Ordered famotidine 20 mg oral tablet 20 mg, 1, tablet, By Mouth, 2 times a day, # 60 tablet, Refills 0, Tot. Refills 0, Maintenance, 05/26/22 8:45:00 EDT, Route to Pharmacy Electronically, [facility]/pharmacy #9748, Partial fill upon patient request if the [...] 11/08/23 12:26:00 EDT, 11/06/22 12:26:00 EDT, Tablet, [facility]/pharmacy #1130, Partial [...] MRI Safety Implantable Status Assigning Authority Unknown [id number] Unknown 10/04/21 Unknown Unknown Active Unknown Patient Care team information Care Team Personnel Name: Mendy Spicer RN Position: [facility] RN Member Role: Primary Care Nurse Name: Shiela Mays RN Position: [facility] RN Member Role: Primary Care Nurse Name: Ashley Fields RN Position: [facility] MR W/ Merge Member Role: Primary Care Nurse Name: Keith Stacy MD Position: [facility] TITLE ONE TEACHER Member Role: Lifetime TITLE ONE TEACHER Physician Address: Address: [address] [place] [address] Name: Robin Wagner Position: [facility] RN Member Role: Primary Care Nurse Name: Justin Francis RN Position: [facility] ED RN W/OE and Tasks Member Role: Primary Care Nurse Name: Laya Montes RN Position: [facility] RN Member Role: Primary Care Nurse Name: Alice Juarez RN Position: [facility] RN Member Role: Primary Care Nurse Name: Fela Garcia RN Position: [facility] ED RN W/OE and Tasks Member Role: Primary Care Nurse Name: Anay Rouse RN Position: [facility] RN Member Role: Primary Care Nurse Name: Jennifer Weaver RN Position: [facility] RN Member Role: Primary Care Nurse Name: Roxana Young RN Position: [facility] RN Member Role: Primary Care Nurse Name: Oswald Harley NP Position: [facility] PCO Associate Professional Member Role: PCP Address: Address: [address] [place] [id number] Name: David TIDWELL, Neda Li Position: [facility] AMB Nurse Member Role: Primary Care Nurse Care Team Related Persons Name: MENDEL MCKEON Address: home [address] [address] Name: GIANA LAMAS Address: home [address] [place] [address] Name: ROSHNI JUÁREZ Address: home [address] [place] [address] Name: SINDHU SCHRADER Address: home [address] [place] [id number] Name: CRAIG VACA Address: home [address] [place] [address]
--- OUTSIDE RECORDS SUMMARY | 2023-09-08 20:47 | XMS_ITS | Continuity of Care Document ---
Author Organization 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 Start Date: 10/30/21 Status: Ordered albuterol CFC free 90 mcg/inh inhalation aerosol 2, puffs, Inhalation, Every 6 hours, PRN, # 1 each, Refills 11, Tot. Refills 11, Maintenance, 04/16/23 13:07:00 EST, Aerosol, Route to Pharmacy Electronically, [id number], [facility]/pharmacy #1130, 173, cm, 03/30/23 11:29:00 EST, H... Start Date: 04/16/23 Stop Date: 04/10/24 Status: Ordered dicyclomine 20 mg oral tablet 1 tablet = 20 mg, By Mouth, 3 times a day, For stomach cramping., # 21 tablet, 0 Refills, Maintenance, 05/24/22 11:58:00 EDT, Tablet, [facility]/pharmacy #1130, Partial fill upon patient request if the prescription is for a schedule II opioid drug., 173, cm,... Start Date: 05/24/22 Stop Date: 05/31/22 Status: Ordered estradiol 2 mg oral tablet 1 tablet, By Mouth, Daily, # 30 tablet, 0 Refills, Maintenance, 03/05/23 16:28:00 EST, [facility] STORE 36983, 173, cm, 11/06/22 11:43:00 EDT, Height, 50, kg, 04/27/22 4:20:00 EST, Dry Weight Start Date: 03/05/23 Status: Ordered famotidine 20 mg oral tablet 20 mg, 1, tablet, By Mouth, 2 times a day, # 60 tablet, Refills 1, Tot. Refills 1, Maintenance, 06/18/23 15:56:00 EDT, Route to Pharmacy Electronically, [facility]/pharmacy #1130, Partial fill upon patient request [...] 0 Refills, Maintenance, 04/29/22 13:40:00 EST, Tablet, [facility]/pharmacy #1130, Partial fill upon patient request [...] MRI Safety Implantable Status Assigning Authority Unknown [id number] Unknown 10/04/21 Unknown Unknown Active Unknown Patient Care team information Care Team Personnel Name: Mendy Spicer RN Position: [facility] RN Member Role: Primary Care Nurse Name: Shiela Mays RN Position: [facility] RN Member Role: Primary Care Nurse Name: Ashley Fields RN Position: [facility] W/ Merge Member Role: Primary Care Nurse Name: Keith Stacy MD Position: [facility] MANAGER COMPETITIVE INTELLIGENCE MD Member Role: Lifetime MANAGER COMPETITIVE INTELLIGENCE Physician Address: Address: [address] [place] [address] Name: Robin Wagner Position: S RN Member Role: Primary Care Nurse Name: Justin Francis RN Position: S RN Member Role: Primary Care Nurse Name: Laya Montes RN Position: [facility] RN Member Role: Primary Care Nurse Name: Alice Juarez RN Position: [facility] RN Member Role: Primary Care Nurse Name: Fela Garcia RN Position: [facility] ED RN W/OE and Tasks Member Role: Primary Care Nurse Name: Anay Rouse RN Position: [facility] RN Member Role: Primary Care Nurse Name: Jennifer Weaver RN Position: [facility] RN Member Role: Primary Care Nurse Name: Roxana Young RN Position: [facility] RN Member Role: Primary Care Nurse Name: Oswald Harley NP Position: [facility] PCO Associate Professional Member Role: PCP Address: Address: [address] [place] [id number]- Name: David TIDWELL, Neda Li Position: [facility] AMB Nurse Member Role: Primary Care Nurse Care Team Related Persons Name: LINDA MENDEL Address: home [address] [place] [address] Name: GIANA LAMAS Address: home [address] [place] [address] Name: ROSHNI JUÁREZ Address: home [address] [place] [address] Name: ANGELICA JUÁREZ Address: home [address] [place] [address] Name: SINDHU SCHRADER Address: home [address] [place] [address] Name: CRAIG VACA Address: home [address] [place] [address]
--- OUTSIDE RECORDS SUMMARY | 2023-09-08 20:47 | XMS_ITS | Continuity of Care Document ---
Author Organization [facility] Address [address] [place] [address]- Care Team Providers Care Road Equipment Operator Name Role Phone Cherri DELAROSA, Oswald Brandon Primary Care Physicia n Encounter [facility] [place] [place] Date(s): 08/05/23 - 09/04/[address] [address]- Allergies, Adverse Reactions, Alerts Substance Reaction Severity [...] 15:13:00 EDT, Route to Pharmacy Electronically, [facility]/pharmacy #[id number],Partial fill upon patient request if the prescripti... [...] Gm, 0 Refills, Maintenance, 08/03/23 12:06:00 EDT, [facility]/pharmacy #1130, with dose counter. any albuterol inhaler covered by insurance is fine., 2 puffs Inhalation Every 4 hours,PRN:cough,... Start Date: 08/03/23 Status: Ordered albuterol CFC free 90 mcg/inh inhalation aerosol 2, puffs, Inhalation, Every 6 hours, PRN, # 1 each, Refills 11, Tot. Refills 11, Maintenance, 04/16/23 13:07:00 EST, Aerosol, Route to Pharmacy Electronically, [id number], [facility]/pharmacy #1130, 173, cm, 03/30/23 11:29:00 EST, H... Start Date: 04/16/23 Stop Date: 04/10/24 Status: Ordered cetirizine 10 mg oral tablet 1 tablet = 10 mg, By Mouth, Daily, PRN allergies, # 90 tablet, 0 Refills, Maintenance, 08/03/23 12:06:00 EDT, Tablet, [facility]/pharmacy #1130, Partial fill upon patient request [...] tablet, 0 Refills, Maintenance, 03/05/23 16:28:00 EST, [facility] STORE 01576, 173, cm, 11/06/22 11:43:00 EDT, Height, 50, [...] 0 Refills, Maintenance, 04/29/22 13:40:00 EST, Tablet, [facility]/pharmacy #1130, Partial fill upon patient request [...] MRI Safety Implantable Status Assigning Authority Unknown [id number] Unknown 10/04/21 Unknown Unknown Active Unknown [...] Keith Stacy MD Position: [facility] CANDY SEPARATOR HARD MD Member Role: Lifetime CANDY SEPARATOR HARD Physician Address: Address: [address] [place] [address]- Name: Robin Wagner Position: [facility] [...] Care Nurse Name: Oswald Harley NP Position: [facility] PCO Associate Professional Member Role: PCP Address: Address: [address] [place] [id number]- [place] Name: Neda Hernandez RN Position: [facility] AMB Nurse Member Role: Primary Care Nurse Care Team Related Persons Name: MENDEL MCKEON Address: home [address], [place] [address] Name: GIANA LAMAS Address: home [address] [place] [address] Name: ROSHNI JUÁREZ Address: home [address] [place] [address] Name: ANGELICA JUÁREZ Address: home [address] [place] [address] Name: SINDHU SCHRADER Address: home [address] [place] [address] Name: CRAIG VACA Address: home [address] [place] [address]
--- OUTSIDE RECORDS SUMMARY | 2023-09-08 20:47 | XMS_ITS | Continuity of Care Document ---
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 Start Date: 10/30/21 Status: Ordered albuterol CFC free 90 mcg/inh inhalation aerosol 2, puffs, Inhalation, Every 6 hours, PRN, # 1 each, Refills 11, Tot. Refills 11, Maintenance, 04/16/23 13:07:00 EST, Aerosol, Route to Pharmacy Electronically, [id number], [facility]/pharmacy #1130, 173, cm, 03/30/23 11:29:00 EST, H... Start Date: 04/16/23 Stop Date: 04/10/24 Status: Ordered dicyclomine 20 mg oral tablet 1 tablet = 20 mg, By Mouth, 3 times a day, For stomach cramping., # 21 tablet, 0 Refills, Maintenance, 05/24/22 11:58:00 EDT, Tablet, [facility]/pharmacy #1130, Partial fill upon patient request if the prescription is for a schedule II opioid drug., 173, cm,... Start Date: 05/24/22 Stop Date: 05/31/22 Status: Ordered estradiol 2 mg oral tablet 1 tablet, By Mouth, Daily, # 30 tablet, 0 Refills, Maintenance, 03/05/23 16:28:00 EST, [facility] STORE 17533, 173, cm, 11/06/22 11:43:00 EDT, Height, 50, kg, 04/27/22 4:20:00 EST, Dry Weight Start Date: 03/05/23 Status: Ordered famotidine 20 mg oral tablet 20 mg, 1, tablet, By Mouth, 2 times a day, # 60 tablet, Refills 0, Tot. Refills 0, Maintenance, 05/26/22 8:45:00 EDT, Route to Pharmacy Electronically, [facility]/pharmacy #0896, Partial fill upon patient request if the prescription is for a schedule II opio... Start Date: 05/26/22 Status: Ordered famotidine 20 mg oral tablet 20 mg, 1, tablet, By Mouth, 2 times a day, # 180 tablet, Refills 0, Tot. Refills 0, Maintenance, 05/26/22 9:05:00 EDT, Route to Pharmacy Electronically, [facility]/pharmacy #1130, Partial fill upon patient request if the prescription is for a schedule II opi... Start Date: 05/26/22 Status: Ordered meclizine 12.5 mg oral tablet 1 tablet = 12.5 mg, By Mouth, 3 times a day, PRN for dizziness, # 30 tablet, 0 Refills, Acute 11/08/23 12:26:00 EDT, 11/06/22 12:26:00 EDT, Tablet, [facility]/pharmacy #1130, Partial fill upon patient request if the prescription is for a schedule II opioid d... Start Date: 11/06/22 Stop Date: 11/08/23 Status: Ordered omeprazole 40 mg oral enteric coated capsule 1 capsule = 40 mg, By Mouth, Daily, For abdominal pain/ stomach acid/ reflux, # 14 capsule, 0 Refills, Maintenance, 05/24/22 11:59:00 EDT, EC Capsule, [facility]/pharmacy #1130, Partial fill upon patient request if the prescription is for a schedule II opioi... Start Date: 05/24/22 Stop Date: 06/07/22 Status: Ordered ondansetron 4 mg oral tablet, disintegrating 1 tablet = 4 mg, By Mouth, Every 8 hours, PRN as needed for nausea/vomiting, # 12 tablet, 0 Refills, Maintenance, 05/26/22 8:45:00 EDT, DIS Tablet, [facility]/pharmacy #0488, Partial fill upon patient request if the prescription is for a schedule II opioid d... Start Date: 05/26/22 Status: Ordered ondansetron 4 mg oral tablet, disintegrating 1 tablet = 4 mg, By Mouth, Every 8 hours, PRN as needed for nausea/vomiting, # 14 tablet, 0 Refills, Maintenance, 05/26/22 9:05:00 EDT, DIS Tablet, [facility]/pharmacy #1130, Partial fill upon patient [...] MRI Safety Implantable Status Assigning Authority Unknown [id number] Unknown 10/04/21 Unknown Unknown Active Unknown Patient Care team information Care Team Personnel Name: Mendy Spicer RN Position: [facility] RN Member Role: Primary Care Nurse Name: Shiela Mays RN Position: [facility] RN Member Role: Primary Care Nurse Name: Ashley Fields RN Position: [facility] MR W/ Merge Member Role: Primary Care Nurse Name: Keith Stacy MD Position: [facility] SUPERVISOR NATURAL GAS PLANT Member Role: Lifetime SUPERVISOR NATURAL GAS PLANT Physician Address: Address: [address] [place] [address] Name: Robin Wagner Position: [facility] RN Member Role: Primary Care Nurse Name: Justin Francis RN Position: [facility] ED RN W/OE and Tasks Member Role: Primary Care Nurse Name: Laya Montes RN Position: [facility] RN Member Role: Primary Care Nurse Name: Alice Juarez RN Position: [facility] RN Member Role: Primary Care Nurse Name: Fela Garcia RN Position: [facility] ED RN W/OE and Tasks Member Role: Primary Care Nurse Name: Anay Rouse RN Position: [facility] RN Member Role: Primary Care Nurse Name: Jennifer Weaver RN Position: [facility] RN Member Role: Primary Care Nurse Name: Roxana Young RN Position: [facility] RN Member Role: Primary Care Nurse Name: Oswald Harley NP Position: [facility] PCO Associate Professional Member Role: PCP Address: Address: [address] [place] [id number] Name: David TIDWELL, Neda Li Position: [facility] AMB Nurse Member Role: Primary Care Nurse Care Team Related Persons Name: MENDEL MCKEON Address: home [address], [place] [address] Name: GIANA LAMAS Address: home [address] [place] [address] Name: ROSHNI JUÁREZ Address: home [address] [place] [address] Name: SINDHU SCHRADER Address: home [address] [facility] [address] [place] [id number] Name: CRAIG VACA Address: [address] [place] [address]
--- OUTSIDE RECORDS SUMMARY | 2023-09-08 20:47 | XMS_ITS | Continuity of Care Document ---
Author Organization [facility] Address [address] [place] [address]- Care Team Providers Care Server Support Technician Name Role Phone Oswald Harley NP Primary Care Physicia n Encounter [facility] [place] Date(s): 02/28/23 - 04/03/[address] [address]- Attending Physician: Not on Staff, Attending MD [...] 15:13:00 EDT, Route to Pharmacy Electronically, [facility]/pharmacy #[id number],Partial fill upon patient request if the prescripti... Start Date: 10/30/21 Status: Ordered albuterol CFC free 90 mcg/inh inhalation aerosol 2, puffs, Inhalation, Every 6 hours, PRN, # 1 each, Refills 11, Tot. Refills 11, Maintenance, 10/10/21 9:46:00 EDT, Aerosol, Route to Pharmacy Electronically, [id number], [place], [place] - [id number], 173, c... Start Date: 10/10/21 Stop Date: 10/05/22 Status: Ordered dicyclomine 20 mg oral tablet 1 tablet = 20 mg, By Mouth, 3 times a day, For stomach cramping., # 21 tablet, 0 Refills, Maintenance, 05/24/22 11:58:00 EDT, Tablet, [facility]/pharmacy #1130, Partial fill upon patient request if the prescription is for a schedule II opioid drug., 173, cm,... Start Date: 05/24/22 Stop Date: 05/31/22 Status: Ordered estradiol 2 mg oral tablet 1 tablet, By Mouth, Daily, # 30 tablet, 0 Refills, Maintenance, 03/05/23 16:28:00 EST, [facility] STORE [id number], 173, cm, 11/06/22 11:43:00 EDT, Height, 50, kg, 04/27/22 4:20:00 EST, Dry Weight Start Date: 03/05/23 Status: Ordered famotidine 20 mg oral tablet 20 mg, 1, tablet, By Mouth, 2 times a day, # 60 tablet, Refills 0, Tot. Refills 0, Maintenance, 05/26/22 8:45:00 EDT, Route to Pharmacy Electronically, [facility]/pharmacy #[id number], Partial fill upon patient request if the prescription is for a schedule II opio... Start Date: 05/26/22 Status: Ordered famotidine 20 mg oral tablet 20 mg, 1, tablet, By Mouth, 2 times a day, # 180 tablet, Refills 0, Tot. Refills 0, Maintenance, 05/26/22 9:05:00 EDT, Route to Pharmacy Electronically, [facility]/pharmacy #1130, Partial fill upon patient request if the prescription is for a schedule II opi... Start Date: 05/26/22 Status: Ordered ibuprofen 600 mg oral tablet 600 mg, 1, tablet, By Mouth, Every 6 hours, PRN, for 5 days, # 20 tablet, Refills 0, Tot. Refills 0, Acute 04/04/23 11:46:00 EST, Pain , Mild for pain, 03/30/23 11:46:00 EST, Route to Pharmacy Electronically, [facility]/pharmacy #1130, Partial fill upon pa... Start Date: 03/30/23 Stop Date: 04/04/23 Status: Ordered meclizine 12.5 mg oral tablet 1 tablet = 12.5 mg, By Mouth, 3 times a day, PRN for dizziness, # 30 tablet, 0 Refills, Acute 11/08/23 12:26:00 EDT, 11/06/22 12:26:00 EDT, Tablet, [facility]/pharmacy #1130, Partial fill upon patient request if the prescription is for a schedule II opioid d... Start Date: 11/06/22 Stop Date: 11/08/23 Status: Ordered omeprazole 40 mg oral enteric coated capsule 1 capsule = 40 mg, By Mouth, Daily, For abdominal pain/ stomach acid/ reflux, # 14 capsule, 0 Refills, Maintenance, 05/24/22 11:59:00 EDT, EC Capsule, [facility]/pharmacy #1130, Partial fill upon patient request if the prescription is for a schedule II opioi... Start Date: 05/24/22 Stop Date: 06/07/22 Status: Ordered ondansetron 4 mg oral tablet, disintegrating 1 tablet = 4 mg, By Mouth, Every 8 hours, PRN as needed for nausea/vomiting, # 12 tablet, 0 Refills, Maintenance, 05/26/22 8:45:00 EDT, DIS Tablet, [facility]/pharmacy #0483, Partial fill upon patient request if the prescription is for a schedule II opioid d... Start Date: 05/26/22 Status: Ordered ondansetron 4 mg oral tablet, disintegrating 1 tablet = 4 mg, By Mouth, Every 8 hours, PRN as needed for nausea/vomiting, # 14 tablet, 0 Refills, Maintenance, 05/26/22 9:05:00 EDT, DIS Tablet, [facility]/pharmacy #1130, Partial fill upon patient request if the prescription is for a schedule II opioid d... Start Date: 05/26/22 Status: Ordered predniSONE 5 mg oral tablet 1 tablet = 5 mg, By Mouth, Daily, # 5 tablet, 0 Refills, Maintenance, 04/29/22 13:40:00 EST, Tablet, [facility]/pharmacy #1130, Partial fill upon patient request [...] MRI Safety Implantable Status Assigning Authority Unknown [id number] Unknown 10/04/21 Unknown Unknown Active Unknown Patient Care team information Care Team Personnel Name: Mendy Spicer RN Position: [facility] RN Member Role: Primary Care Nurse Name: Shiela Mays RN Position: [facility] RN Member Role: Primary Care Nurse Name: Ashley Fields RN Position: [facility] W/ Merge Member Role: Primary Care Nurse Name: Keith Stacy MD Position: [facility] CUSTOM DECORATING CONSULTANT MD Member Role: Lifetime CUSTOM DECORATING CONSULTANT Physician Address: Address: [address] [address]- [place] Name: Robin Wagner Position: S RN Member Role: Primary Care Nurse Name: Justin Francis RN Position: [facility] ED RN W/OE and Tasks Member Role: Primary Care Nurse Name: Laya Montes RN Position: S RN Member Role: Primary Care Nurse Name: Alice Juarez RN Position: S RN Member Role: Primary Care Nurse Name: Fela Garcia RN Position: [facility] ED RN W/OE and Tasks Member Role: Primary Care Nurse Name: Anay Rouse RN Position: [facility] RN Member Role: Primary Care Nurse Name: Jennifer Weaver RN Position: [facility] RN Member Role: Primary Care Nurse Name: Roxana Young RN Position: [facility] RN Member Role: Primary Care Nurse Name: Oswald Harley NP Position: [facility] PCO Associate Professional Member Role: PCP Address: Address: [address] [place] [address]- [place] Name: Neda Hernandez RN Position: [facility] AMB Nurse Member Role: Primary Care Nurse Care Team Related Persons Name: MENDEL MCKEON Address: home [address], [place] [address] Name: GIANA LAMAS Address: home [address] [place] [address] Name: ROSHNI JUÁREZ Address: home [address] [place] [address] Name: SINDHU SCHRADER Address: home [address] [place] [address] Name: CRAIG VACA Address: home [address] [place] [address]
--- OUTSIDE RECORDS SUMMARY | 2023-09-08 20:47 | XMS_ITS | Continuity of Care Document ---
Author Organization [facility] Address [address] [place] [address] [address] [place] [address]- Care Team Providers Care Qual Research Manager Name Role Phone Cherri DELAROSA, Oswald Brandon Primary Care Physicia n [place] [facility] [place] - 08/20/[address] [place] [address]- Attending Physician: Rob Jacobs MD Referring Physician: Oswald Harley NP Allergies, Adverse Reactions, Alerts Substance Reaction Severity [...] 15:13:00 EDT, Route to Pharmacy Electronically, [facility]/pharmacy #[id number],Partial fill upon patient request if the prescripti... [...] Gm, 0 Refills, Maintenance, 08/03/23 12:06:00 EDT, [facility]/pharmacy #1130, with dose counter. any albuterol inhaler covered by insurance is fine., 2 puffs Inhalation Every 4 hours,PRN:cough,... Start Date: 08/03/23 Status: Ordered albuterol CFC free 90 mcg/inh inhalation aerosol 2, puffs, Inhalation, Every 6 hours, PRN, # 1 each, Refills 11, Tot. Refills 11, Maintenance, 04/16/23 13:07:00 EST, Aerosol, Route to Pharmacy Electronically, [id number], [facility]/pharmacy #1130, 173, cm, 03/30/23 11:29:00 EST, H... Start Date: 04/16/23 Stop Date: 04/10/24 Status: Ordered cetirizine 10 mg oral tablet 1 tablet = 10 mg, By Mouth, Daily, PRN allergies, # 90 tablet, 0 Refills, Maintenance, 08/03/23 12:06:00 EDT, Tablet, [facility]/pharmacy #1130, Partial fill upon patient request if [...] Refills, Maintenance, 03/05/23 16:28:00 EST, [id number], 173, cm, 11/06/22 11:43:00 EDT, Height, 50, [...] Refills, Maintenance, 04/29/22 13:40:00 EST, Tablet, [facility]/pharmacy #1130, Partial fill upon patient request if [...] MRI Safety Implantable Status Assigning Authority Unknown [id number] Unknown 10/04/21 Unknown Unknown Active Unknown Patient Care team information Care Team Personnel Name: Mendy Spicer RN Position: [facility] RN Member Role: Primary Care Nurse Name: Shiela Mays RN Position: [facility] RN Member Role: Primary Care Nurse Name: Ashley Fields RN Position: [facility] MR W/ Merge Member Role: Primary Care Nurse Name: Keith Stacy MD Position: [facility] BAROMETERS CALIBRATOR MD Member Role: Lifetime BAROMETERS CALIBRATOR Physician Address: Address: [address] [place] [address]- Name: Robin Wagner Position: [facility] RN Member Role: Primary Care Nurse Name: Justin Francis RN Position: [facility] RN [...] Professional Member Role: PCP Address: Address: [address] [place] [address]- Name: Neda Hernandez RN Position: [facility] AMB Nurse Member Role: Primary Care Nurse Care Team Related Persons Name: MENDEL MCKEON Address: home [address], [place] [address] Name: GIANA LAMAS Address: home [address] [place] [address] Name: ROSHNI JUÁREZ Address: home [address] [place] [address] Name: ANGELICA JUÁREZ Address: home [address] [place] [address] Name: SINDHU SCHRADER Address: home [address] [place] [address] Name: CRAIG VACA Address: home [address] [place] [address]
--- OUTSIDE RECORDS SUMMARY | 2023-09-08 20:47 | XMS_ITS | Continuity of Care Document ---
Author Organization [facility] Address [address] [place] [address]- Care Team Providers Care Cook Chief Name Role Phone Cherri DELAROSA, Oswald Brandon Primary Care Physicia n [place] [facility] [place]/23 [facility] [address] [place], [place] [address] Attending Physician: Srinivasa Mendieta Admitting Physician: AdmSrinivasa peterson Referring Physician: AdmtrSrinivasa Allergies, Adverse Reactions, Alerts [...] to Pharmacy Electronically, [facility]/pharmacy #[id number],Partial fill upon patient request if the prescripti... Start Date: 10/30/21 Status: Ordered albuterol CFC free 90 mcg/inh inhalation aerosol 2, puffs, Inhalation, Every 6 hours, PRN, # 1 each, Refills 11, Tot. Refills 11, Maintenance, 04/16/23 13:07:00 EST, Aerosol, Route to Pharmacy Electronically, [id number], [facility]/pharmacy #1130, 173, cm, 03/30/23 11:29:00 EST, H... Start Date: 04/16/23 Stop Date: 04/10/24 Status: Ordered dicyclomine 20 mg oral tablet 1 tablet = 20 mg, By Mouth, 3 times a day, For stomach cramping., # 21 tablet, 0 Refills, Maintenance, 05/24/22 11:58:00 EDT, Tablet, [facility]/pharmacy #1130, Partial fill upon patient request if the prescription is for a schedule II opioid drug., 173, cm,... Start Date: 05/24/22 Stop Date: 05/31/22 Status: Ordered estradiol 2 mg oral tablet 1 tablet, By Mouth, Daily, # 30 tablet, 0 Refills, Maintenance, 03/05/23 16:28:00 EST, [facility] STORE [id number], 173, cm, 11/06/22 11:43:00 EDT, Height, 50, kg, 04/27/22 4:20:00 EST, Dry Weight Start Date: 03/05/23 Status: Ordered famotidine 20 mg oral tablet 20 mg, 1, tablet, By Mouth, 2 times a day, # 60 tablet, Refills 0, Tot. Refills 0, Maintenance, 05/26/22 8:45:00 EDT, Route to Pharmacy Electronically, [facility]/pharmacy #8311, Partial fill upon patient request if the prescription is for a schedule II opio... Start Date: 05/26/22 Status: Ordered famotidine 20 mg oral tablet 20 mg, 1, tablet, By Mouth, 2 times a day, # 180 tablet, Refills 0, Tot. Refills 0, Maintenance, 05/26/22 9:05:00 EDT, Route to Pharmacy Electronically, [facility]/pharmacy #1130, Partial fill upon patient request if the prescription is for a schedule II opi... Start Date: 05/26/22 Status: Ordered meclizine 12.5 mg oral tablet 1 tablet = 12.5 mg, By Mouth, 3 times a day, PRN for dizziness, # 30 tablet, 0 Refills, Acute 11/08/23 12:26:00 EDT, 11/06/22 12:26:00 EDT, Tablet, [facility]/pharmacy #1130, Partial fill upon patient request if the prescription is for a schedule II opioid d... Start Date: 11/06/22 Stop Date: 11/08/23 Status: Ordered omeprazole 40 mg oral enteric coated capsule 1 capsule = 40 mg, By Mouth, Daily, For abdominal pain/ stomach acid/ reflux, # 14 capsule, 0 Refills, Maintenance, 05/24/22 11:59:00 EDT, EC Capsule, [facility]/pharmacy #1130, Partial fill upon patient request if the prescription is for a schedule II opioi... Start Date: 05/24/22 Stop Date: 06/07/22 Status: Ordered ondansetron 4 mg oral tablet, disintegrating 1 tablet = 4 mg, By Mouth, Every 8 hours, PRN as needed for nausea/vomiting, # 12 tablet, 0 Refills, Maintenance, 05/26/22 8:45:00 EDT, DIS Tablet, [facility]/pharmacy #0488, Partial fill upon patient request if the prescription is for a schedule II opioid d... Start Date: 05/26/22 Status: Ordered ondansetron 4 mg oral tablet, disintegrating 1 tablet = 4 mg, By Mouth, Every 8 hours, PRN as needed for nausea/vomiting, # 14 tablet, 0 Refills, Maintenance, 05/26/22 9:05:00 EDT, DIS Tablet, [facility]/pharmacy #1130, Partial fill upon patient [...] MRI Safety Implantable Status Assigning Authority Unknown [id number] Unknown 10/04/21 Unknown Unknown Active Unknown Note * Mary Guerrero: PERFORM, SIGN, VERIFY Event Display: Patient Education/Instruction Authored Date: [facility] Clinical Summary Person Information Name ASHER MCKEON [...] primary care provider, you may find a [facility] provider by calling [facility] at [phone]. Patient Education Information Follow-up Details: Patient Education Material: Patient Care team information Care Team Personnel Name: Mendy Spicer RN Position: [facility] RN Member Role: Primary Care Nurse Name: Shiela Mays RN Position: [facility] RN Member Role: Primary Care Nurse Name: sAhley Fields RN Position: [facility] MR W/ Merge Member Role: Primary Care Nurse Name: Keith Stacy MD Position: [facility] SLIPPER MAKER MD Member Role: Lifetime SLIPPER MAKER Physician Address: Address: [address] [place] [address]- Name: Robin Wagner Position: [facility] RN Member Role: Primary Care Nurse Name: Justin Francis RN Position: [facility] ED RN W/OE and Tasks Member Role: Primary Care Nurse Name: Laya Montes RN Position: [facility] RN Member Role: Primary Care Nurse Name: Alice Juarez RN Position: [facility] RN Member Role: Primary Care Nurse Name: Fela Garcia RN Position: [facility] ED RN W/OE and Tasks Member Role: Primary Care Nurse Name: Anay Rouse RN Position: [facility] RN Member Role: Primary Care Nurse Name: Jennifer Weaver RN Position: [facility] RN Member Role: Primary Care Nurse Name: Roxana Young RN Position: [facility] RN Member Role: Primary Care Nurse Name: Oswald Harley NP Position: [facility] PCO Associate Professional Member Role: PCP Address: Address: [address] [place] [address]- [place] Name: Neda Hernandez RN Position: [facility] AMB Nurse Member Role: Primary Care Nurse Care Team Related Persons Name: MCKEONMENDEL Whatley Address: home [address], [place] [address] Name: GIANA LAMAS Address: home [address] [place] [address] Name: ROSHNI JUÁREZ Address: home [address] [place] [address] Name: SINDHU SCHRADER Address: home [address] [place] [address] Name: CRAIG VACA Address: home [address] [place] [address]
--- OUTSIDE RECORDS SUMMARY | 2023-09-08 20:47 | XMS_ITS | Continuity of Care Document ---
Author Organization [facility] Address [address] [place] [address]- Care Team Providers Care Data Center Project Manager Name Role Phone Cherri DELAROSA, Oswald Brandon Primary Care Physicia n Encounter [facility] Date(s): 11/26/22 - 12/26/[address] [address]- Allergies, Adverse Reactions, Alerts Substance Reaction Severity [...] 10/30/21 15:13:00 EDT, Route to Pharmacy Electronically, [facility]/pharmacy #[id number],Partial fill upon patient request if the prescripti... Start Date: 10/30/21 Status: Ordered albuterol CFC free 90 mcg/inh inhalation aerosol 2, puffs, Inhalation, Every 6 hours, PRN, # 1 each, Refills 11, Tot. Refills 11, Maintenance, 10/10/21 9:46:00 EDT, Aerosol, Route to Pharmacy Electronically, [id number], [place], [place] - [id number], 173, c... Start Date: 10/10/21 Stop Date: 10/05/22 Status: Ordered dicyclomine 20 mg oral tablet 1 tablet = 20 mg, By Mouth, 3 times a day, For stomach cramping., # 21 tablet, 0 Refills, Maintenance, 05/24/22 11:58:00 EDT, Tablet, [facility]/pharmacy #1130, Partial fill upon patient request if the prescription is for a schedule II opioid drug., 173, cm,... Start Date: 05/24/22 Stop Date: 05/31/22 Status: Ordered estradiol 2 mg oral tablet 1 tablet = 2 mg, By Mouth, Daily, # 30 tablet, 0 Refills, Maintenance, 11/11/22 8:39:00 EDT, Tablet, [facility]/pharmacy #1130, Partial fill upon patient request if the prescription is for a schedule II opioid drug., 173, cm, 11/06/22 11:43:00 EDT, Height, 5... Start Date: 11/11/22 Status: Ordered famotidine 20 mg oral tablet 20 mg, 1, tablet, By Mouth, 2 times a day, # 60 tablet, Refills 0, Tot. Refills 0, Maintenance, 05/26/22 8:45:00 EDT, Route to Pharmacy Electronically, [facility]/pharmacy #0488, Partial fill upon patient request if the prescription is for a schedule II opio... Start Date: 05/26/22 Status: Ordered famotidine 20 mg oral tablet 20 mg, 1, tablet, By Mouth, 2 times a day, # 180 tablet, Refills 0, Tot. Refills 0, Maintenance, 05/26/22 9:05:00 EDT, Route to Pharmacy Electronically, [facility]/pharmacy #1130, Partial fill upon patient request if the prescription is for a schedule II opi... Start Date: 05/26/22 Status: Ordered meclizine 12.5 mg oral tablet 1 tablet = 12.5 mg, By Mouth, 3 times a day, PRN for dizziness, # 30 tablet, 0 Refills, Acute 11/08/23 12:26:00 EDT, 11/06/22 12:26:00 EDT, Tablet, [facility]/pharmacy #1130, Partial fill upon patient request if the prescription is for a schedule II opioid d... Start Date: 11/06/22 Stop Date: 11/08/23 Status: Ordered omeprazole 40 mg oral enteric coated capsule 1 capsule = 40 mg, By Mouth, Daily, For abdominal pain/ stomach acid/ reflux, # 14 capsule, 0 Refills, Maintenance, 05/24/22 11:59:00 EDT, EC Capsule, [facility]/pharmacy #1130, Partial fill upon patient request if the prescription is for a schedule II opioi... Start Date: 05/24/22 Stop Date: 06/07/22 Status: Ordered ondansetron 4 mg oral tablet, disintegrating 1 tablet = 4 mg, By Mouth, Every 8 hours, PRN as needed for nausea/vomiting, # 12 tablet, 0 Refills, Maintenance, 05/26/22 8:45:00 EDT, DIS Tablet, [facility]/pharmacy #0488, Partial fill upon patient request if the prescription is for a schedule II opioid d... Start Date: 05/26/22 Status: Ordered ondansetron 4 mg oral tablet, disintegrating 1 tablet = 4 mg, By Mouth, Every 8 hours, PRN as needed for nausea/vomiting, # 14 tablet, 0 Refills, Maintenance, 05/26/22 9:05:00 EDT, DIS Tablet, [facility]/pharmacy #1130, Partial fill upon patient request if [...] MRI Safety Implantable Status Assigning Authority Unknown [id number] Unknown 10/04/21 Unknown Unknown Active Unknown Patient Care team information Care Team Personnel Name: Mendy Spicer RN Position: [facility] RN Member Role: Primary Care Nurse Name: Shiela Mays RN Position: [facility] RN Member Role: Primary Care Nurse Name: Ashley Fields RN Position: [facility] MR W/ Merge Member Role: Primary Care Nurse Name: Keith Stacy MD Position: [facility] ELECTRICAL CAD TECHNICIAN MD Member Role: Lifetime ELECTRICAL CAD TECHNICIAN Physician Address: Address: [address] [place] [address] Name: Robin Wagner Position: [facility] RN Member Role: Primary Care Nurse Name: Justin Francis RN Position: [facility] RN Member Role: Primary Care Nurse Name: Laya Montes RN Position: [facility] RN Member Role: Primary Care Nurse Name: Alice Juarez RN Position: [facility] RN Member Role: Primary Care Nurse Name: Fela Garcia RN Position: [facility] ED RN W/OE and Tasks Member Role: Primary Care Nurse Name: Anay Rouse RN Position: [facility] RN Member Role: Primary Care Nurse Name: Jennifer Weaver RN Position: [facility] RN Member Role: Primary Care Nurse Name: Roxana Young RN Position: [facility] RN Member Role: Primary Care Nurse Name: Oswald Harley NP Position: [facility] PCO Associate Professional Member Role: PCP Address: Address: [address] [place] [id number] Name: Neda Hernandez RN Position: [facility] AMB Nurse Member Role: Primary Care Nurse Care Team Related Persons Name: MENDEL MCKEON Address: home [address], [place] [address] Name: GIANA LAMAS Address: home [address] [place] [address] Name: ROSHNI JUÁREZ Address: [place] [address] Name: SINDHU SCHRADER Address: home [address] [place] [address] Name: CRAIG VACA Address: home [address] [place] [address]
--- OUTSIDE RECORDS SUMMARY | 2023-09-08 20:47 | XMS_ITS | Continuity of Care Document ---
Author Organization [facility] Address [address] [place] [address]- Care Team Providers Care Regional Sales Consultant Name Role Phone Cherri DELAROSA, Oswald Brandon Primary Care Physicia n [facility]counter [facility] Date(s): 10/25/22 - 11/24/[address] [address]- Allergies, Adverse Reactions, Alerts Substance Reaction Severity [...] 15:13:00 EDT, Route to Pharmacy Electronically, [facility]/pharmacy #[id number],Partial fill upon patient request if the prescripti... Start Date: 10/30/21 Status: Ordered albuterol CFC free 90 mcg/inh inhalation aerosol 2, puffs, Inhalation, Every 6 hours, PRN, # 1 each, Refills 11, Tot. Refills 11, Maintenance, 10/10/21 9:46:00 EDT, Aerosol, Route to Pharmacy Electronically, [id number], [place], [place] - [id number], 173, c... Start Date: 10/10/21 Stop Date: 10/05/22 Status: Ordered dicyclomine 20 mg oral tablet 1 tablet = 20 mg, By Mouth, 3 times a day, For stomach cramping., # 21 tablet, 0 Refills, Maintenance, 05/24/22 11:58:00 EDT, Tablet, [facility]/pharmacy #1130, Partial fill upon patient request if the prescription is for a schedule II opioid drug., 173, cm,... Start Date: 05/24/22 Stop Date: 05/31/22 Status: Ordered estradiol 2 mg oral tablet 1 tablet = 2 mg, By Mouth, Daily, # 30 tablet, 0 Refills, Maintenance, 11/11/22 8:39:00 EDT, Tablet, [facility]/pharmacy #1130, Partial fill upon patient request if the prescription is for a schedule II opioid drug., 173, cm, 11/06/22 11:43:00 EDT, Height, 5... Start Date: 11/11/22 Status: Ordered famotidine 20 mg oral tablet 20 mg, 1, tablet, By Mouth, 2 times a day, # 60 tablet, Refills 0, Tot. Refills 0, Maintenance, 05/26/22 8:45:00 EDT, Route to Pharmacy Electronically, [facility]/pharmacy #[id number], Partial fill upon patient request if the prescription is for a schedule II opio... Start Date: 05/26/22 Status: Ordered famotidine 20 mg oral tablet 20 mg, 1, tablet, By Mouth, 2 times a day, # 180 tablet, Refills 0, Tot. Refills 0, Maintenance, 05/26/22 9:05:00 EDT, Route to Pharmacy Electronically, [facility]/pharmacy #1130, Partial fill upon patient request if the prescription is for a schedule II opi... Start Date: 05/26/22 Status: Ordered meclizine 12.5 mg oral tablet 1 tablet = 12.5 mg, By Mouth, 3 times a day, PRN for dizziness, # 30 tablet, 0 Refills, Acute 11/08/23 12:26:00 EDT, 11/06/22 12:26:00 EDT, Tablet, [facility]/pharmacy #1130, Partial fill upon patient request if the prescription is for a schedule II opioid d... Start Date: 11/06/22 Stop Date: 11/08/23 Status: Ordered omeprazole 40 mg oral enteric coated capsule 1 capsule = 40 mg, By Mouth, Daily, For abdominal pain/ stomach acid/ reflux, # 14 capsule, 0 Refills, Maintenance, 05/24/22 11:59:00 EDT, EC Capsule, [facility]/pharmacy #1130, Partial fill upon patient request if the prescription is for a schedule II opioi... Start Date: 05/24/22 Stop Date: 06/07/22 Status: Ordered ondansetron 4 mg oral tablet, disintegrating 1 tablet = 4 mg, By Mouth, Every 8 hours, PRN as needed for nausea/vomiting, # 12 tablet, 0 Refills, Maintenance, 05/26/22 8:45:00 EDT, DIS Tablet, [facility]/pharmacy #0488, Partial fill upon patient request if the prescription is for a schedule II opioid d... Start Date: 05/26/22 Status: Ordered ondansetron 4 mg oral tablet, disintegrating 1 tablet = 4 mg, By Mouth, Every 8 hours, PRN as needed for nausea/vomiting, # 14 tablet, 0 Refills, Maintenance, 05/26/22 9:05:00 EDT, DIS Tablet, [facility]/pharmacy #1130, Partial fill upon patient request [...] MRI Safety Implantable Status Assigning Authority Unknown [id number] Unknown 10/04/21 Unknown Unknown Active Unknown Patient Care team information Care Team Personnel Name: Mendy Spicer RN Position: [facility] RN Member Role: Primary Care Nurse Name: Shiela Mays RN Position: [facility] RN Member Role: Primary Care Nurse Name: Ashley Fields RN Position: [facility] MR W/ Merge Member Role: Primary Care Nurse Name: Keith Stacy MD Position: [facility] DIORAMA MODEL MAKER MD Member Role: Lifetime DIORAMA MODEL MAKER Physician Address: Address: [address] [place] [address] Name: Robin Wagner Position: [facility] RN Member Role: Primary Care Nurse Name: Justin Francis RN Position: [facility] RN Member Role: Primary Care Nurse Name: Laya Montes RN Position: [facility] RN Member Role: Primary Care Nurse Name: Alice Juarez RN Position: [facility] RN Member Role: Primary Care Nurse Name: Fela Garcia RN Position: [facility] ED RN W/OE and Tasks Member Role: Primary Care Nurse Name: Anay Rouse RN Position: [facility] RN Member Role: Primary Care Nurse Name: Jennifer Weaver RN Position: [facility] RN Member Role: Primary Care Nurse Name: Roxana Young RN Position: [facility] RN Member Role: Primary Care Nurse Name: Oswald Harley NP Position: [facility] PCO Associate Professional Member Role: PCP Address: Address: [address] [place] [id number] Name: Neda Hernandez RN Position: [facility] AMB Nurse Member Role: Primary Care Nurse Care Team Related Persons Name: MCKEONMENDEL Address: home [address] [address] Name: GIANA LAMAS Address: home [address] [place] [address] Name: ROSHNI JUÁREZ Address: [place] [address] Name: SINDHU SCHRADER Address: home [address] [place] [address] Name: CRAIG VACA Address: home [address] [place] [address]
--- OUTSIDE RECORDS SUMMARY | 2023-09-08 20:47 | XMS_ITS | Continuity of Care Document ---
Author Organization [facility] Address [address] [place] [address]- Care Team Providers Care Real Estate Investment Analyst Name Role Phone Cherri DELAROSA, Oswald Brandon Primary Care Physicia n [place] [facility]18[place] - 07/18/[address] [address]- Allergies, Adverse Reactions, Alerts Substance Reaction Severity [...] 15:13:00 EDT, Route to Pharmacy Electronically, [facility]/pharmacy #[id number],Partial fill upon patient request if the prescripti... Start Date: 10/30/21 Status: Ordered albuterol CFC free 90 mcg/inh inhalation aerosol 2, puffs, Inhalation, Every 6 hours, PRN, # 1 each, Refills 11, Tot. Refills 11, Maintenance, 04/16/23 13:07:00 EST, Aerosol, Route to Pharmacy Electronically, [id number], [facility]/pharmacy #1130, 173, cm, 03/30/23 11:29:00 EST, H... Start Date: 04/16/23 Stop Date: 04/10/24 Status: Ordered dicyclomine 20 mg oral tablet 1 tablet = 20 mg, By Mouth, 3 times a day, For stomach cramping., # 21 tablet, 0 Refills, Maintenance, 05/24/22 11:58:00 EDT, Tablet, [facility]/pharmacy #1130, Partial fill upon patient request if the prescription is for a schedule II opioid drug., 173, cm,... Start Date: 05/24/22 Stop Date: 05/31/22 Status: Ordered estradiol 2 mg oral tablet 1 tablet, By Mouth, Daily, # 30 tablet, 0 Refills, Maintenance, 03/05/23 16:28:00 EST, [facility] STORE 05[facility], 173, cm, 11/06/22 11:43:00 EDT, Height, 50, kg, 04/27/22 4:20:00 EST, Dry Weight Start Date: 03/05/23 Status: Ordered famotidine 20 mg oral tablet 20 mg, 1, tablet, By Mouth, 2 times a day, # 60 tablet, Refills 1, Tot. Refills 1, Maintenance, 06/18/23 15:56:00 EDT, Route to Pharmacy Electronically, [facility]/pharmacy #1130, Partial fill upon patient request if [...] Refills, Maintenance, 04/29/22 13:40:00 EST, Tablet, [facility]/pharmacy #1130, Partial fill upon patient request if [...] MRI Safety Implantable Status Assigning Authority Unknown [id number] Unknown 10/04/21 Unknown Unknown Active Unknown Patient Care team information Care Team Personnel Name: Mendy Spicer RN Position: [facility] RN Member Role: Primary Care Nurse Name: Shiela Mays RN Position: [facility] RN Member Role: Primary Care Nurse Name: Ashley Fields RN Position: [facility] W/ Merge Member Role: Primary Care Nurse Name: Keith Stacy MD Position: [facility] SAFETY PATROL OFFICER MD Member Role: Lifetime SAFETY PATROL OFFICER Physician Address: Address: [address] [place] [address] Name: Robin Wagner Position: S RN Member Role: Primary Care Nurse Name: Justin Francis RN Position: [facility] RN Member Role: Primary Care Nurse Name: Laya Montes RN Position: [facility] RN Member Role: Primary Care Nurse Name: Alice Juarez RN Position: [facility] RN Member Role: Primary Care Nurse Name: Fela Garcia RN Position: [facility] ED RN W/OE and Tasks Member Role: Primary Care Nurse Name: Anay Rouse RN Position: [facility] RN Member Role: Primary Care Nurse Name: Jennifer Weaver RN Position: [facility] RN Member Role: Primary Care Nurse Name: Roxana Young RN Position: [facility] RN Member Role: Primary Care Nurse Name: Oswald Harley NP Position: [facility] PCO Associate Professional Member Role: PCP Address: Address: [address] [place] [address]- Name: David TIDWELL, Neda Li Position: [facility] AMB Nurse Member Role: Primary Care Nurse Care Team Related Persons Name: MENDEL MCKEON Address: home [address] [address] Name: GIANA LAMAS Address: home [address] [place] [address] Name: ROSHNI JUÁREZ Address: home [address] [place] [address] Name: ANGELICA JUÁREZ Address: home [address] [place] [address] Name: SINDHU SCHRADER Address: home [address] [place] [address] Name: CRAIG VACA Address: home [address] [place] [address]
--- OUTSIDE RECORDS SUMMARY | 2023-09-08 20:47 | XMS_ITS | Continuity of Care Document ---
Author Organization [facility] Address [address] [place] [address]- Care Team Providers Care Auto Rental Supervisor Name Role Phone Cherri DELAROSA, Oswald Brandon Primary Care Physicia n Encounter [facility] Date(s): 11/06/22 - 12/06/[address] [address]- Allergies, Adverse Reactions, Alerts Substance Reaction Severity [...] 10/30/21 15:13:00 EDT, Route to Pharmacy Electronically, [facility]/pharmacy #[id number],Partial fill upon patient request if the prescripti... Start Date: 10/30/21 Status: Ordered albuterol CFC free 90 mcg/inh inhalation aerosol 2, puffs, Inhalation, Every 6 hours, PRN, # 1 each, Refills 11, Tot. Refills 11, Maintenance, 10/10/21 9:46:00 EDT, Aerosol, Route to Pharmacy Electronically, [id number], [place], [place] - [id number], 173, c... Start Date: 10/10/21 Stop Date: 10/05/22 Status: Ordered dicyclomine 20 mg oral tablet 1 tablet = 20 mg, By Mouth, 3 times a day, For stomach cramping., # 21 tablet, 0 Refills, Maintenance, 05/24/22 11:58:00 EDT, Tablet, [facility]/pharmacy #1130, Partial fill upon patient request if the prescription is for a schedule II opioid drug., 173, cm,... Start Date: 05/24/22 Stop Date: 05/31/22 Status: Ordered estradiol 2 mg oral tablet 1 tablet = 2 mg, By Mouth, Daily, # 30 tablet, 0 Refills, Maintenance, 11/11/22 8:39:00 EDT, Tablet, [facility]/pharmacy #1130, Partial fill upon patient request if the prescription is for a schedule II opioid drug., 173, cm, 11/06/22 11:43:00 EDT, Height, 5... Start Date: 11/11/22 Status: Ordered famotidine 20 mg oral tablet 20 mg, 1, tablet, By Mouth, 2 times a day, # 60 tablet, Refills 0, Tot. Refills 0, Maintenance, 05/26/22 8:45:00 EDT, Route to Pharmacy Electronically, [facility]/pharmacy #[id number], Partial fill upon patient request if the prescription is for a schedule II opio... Start Date: 05/26/22 Status: Ordered famotidine 20 mg oral tablet 20 mg, 1, tablet, By Mouth, 2 times a day, # 180 tablet, Refills 0, Tot. Refills 0, Maintenance, 05/26/22 9:05:00 EDT, Route to Pharmacy Electronically, [facility]/pharmacy #1130, Partial fill upon patient request if the prescription is for a schedule II opi... Start Date: 05/26/22 Status: Ordered meclizine 12.5 mg oral tablet 1 tablet = 12.5 mg, By Mouth, 3 times a day, PRN for dizziness, # 30 tablet, 0 Refills, Acute 11/08/23 12:26:00 EDT, 11/06/22 12:26:00 EDT, Tablet, [facility]/pharmacy #1130, Partial fill upon patient request if the prescription is for a schedule II opioid d... Start Date: 11/06/22 Stop Date: 11/08/23 Status: Ordered omeprazole 40 mg oral enteric coated capsule 1 capsule = 40 mg, By Mouth, Daily, For abdominal pain/ stomach acid/ reflux, # 14 capsule, 0 Refills, Maintenance, 05/24/22 11:59:00 EDT, EC Capsule, [facility]/pharmacy #1130, Partial fill upon patient request if the prescription is for a schedule II opioi... Start Date: 05/24/22 Stop Date: 06/07/22 Status: Ordered ondansetron 4 mg oral tablet, disintegrating 1 tablet = 4 mg, By Mouth, Every 8 hours, PRN as needed for nausea/vomiting, # 12 tablet, 0 Refills, Maintenance, 05/26/22 8:45:00 EDT, DIS Tablet, [facility]/pharmacy #0488, Partial fill upon patient request if the prescription is for a schedule II opioid d... Start Date: 05/26/22 Status: Ordered ondansetron 4 mg oral tablet, disintegrating 1 tablet = 4 mg, By Mouth, Every 8 hours, PRN as needed for nausea/vomiting, # 14 tablet, 0 Refills, Maintenance, 05/26/22 9:05:00 EDT, DIS Tablet, [facility]/pharmacy #1130, Partial fill upon patient request [...] MRI Safety Implantable Status Assigning Authority Unknown [id number] Unknown 10/04/21 Unknown Unknown Active Unknown Patient Care team information Care Team Personnel Name: Mendy Spicer RN Position: [facility] RN Member Role: Primary Care Nurse Name: Shiela Mays RN Position: [facility] RN Member Role: Primary Care Nurse Name: Ashley Fields RN Position: [facility] MR W/ Merge Member Role: Primary Care Nurse Name: Keith Stcay MD Position: [facility] ODD JOB LABORER MD Member Role: Lifetime ODD JOB LABORER Physician Address: Address: [address] [place] [address] Name: Robin Wagner Position: [facility] RN Member Role: Primary Care Nurse Name: Justin Francis RN Position: [facility] ED RN W/OE and Tasks Member Role: Primary Care Nurse Name: Laya Montes RN Position: [facility] RN Member Role: Primary Care Nurse Name: Alice Juarez RN Position: [facility] RN Member Role: Primary Care Nurse Name: Fela Garcia RN Position: [facility] ED RN W/OE and Tasks Member Role: Primary Care Nurse Name: Anay Rouse RN Position: [facility] RN Member Role: Primary Care Nurse Name: Jennifer Weaver RN Position: [facility] RN Member Role: Primary Care Nurse Name: Roxana Young RN Position: [facility] RN Member Role: Primary Care Nurse Name: Oswald Harley NP Position: [facility] PCO Associate Professional Member Role: PCP Address: Address: [address] [place] [id number] Name: David TIDWELL, Neda Li Position: [facility] AMB Nurse Member Role: Primary Care Nurse Care Team Related Persons Name: MENDEL MCKEON Address: home [address] [place] [address] Name: GIANA LAMAS Address: home [address] [place] [address] Name: ROSHNI JUÁREZ Address: [place] [address] Name: SINDHU SCHRADER Address: home [address] [place] [address] Name: CRAIG VACA Address: home [address] [place] [address]
--- OUTSIDE RECORDS SUMMARY | 2023-09-08 20:48 | XMS_ITS | Continuity of Care Document ---
Author Organization [facility] Address [address] [place] [address]- Care Team Providers Care Operating Room Scheduler Name Role Phone Oswald Harley NP Primary Care Physicia n Encounter [facility] Date(s): 05/27/23 - 06/26/[address] [address]- Allergies, Adverse Reactions, Alerts Substance Reaction Severity [...] 10/30/21 15:13:00 EDT, Route to Pharmacy Electronically, [facility]/pharmacy #[id number],Partial fill upon patient request if the prescripti... Start Date: 10/30/21 Status: Ordered albuterol CFC free 90 mcg/inh inhalation aerosol 2, puffs, Inhalation, Every 6 hours, PRN, # 1 each, Refills 11, Tot. Refills 11, Maintenance, 04/16/23 13:07:00 EST, Aerosol, Route to Pharmacy Electronically, [id number], [facility]/pharmacy #1130, 173, cm, 03/30/23 11:29:00 EST, H... Start Date: 04/16/23 Stop Date: 04/10/24 Status: Ordered dicyclomine 20 mg oral tablet 1 tablet = 20 mg, By Mouth, 3 times a day, For stomach cramping., # 21 tablet, 0 Refills, Maintenance, 05/24/22 11:58:00 EDT, Tablet, [facility]/pharmacy #1130, Partial fill upon patient request if the prescription is for a schedule II opioid drug., 173, cm,... Start Date: 05/24/22 Stop Date: 05/31/22 Status: Ordered estradiol 2 mg oral tablet 1 tablet, By Mouth, Daily, # 30 tablet, 0 Refills, Maintenance, 03/05/23 16:28:00 EST, [facility] STORE 39[facility], 173, cm, 11/06/22 11:43:00 EDT, Height, 50, kg, 04/27/22 4:20:00 EST, Dry Weight Start Date: 03/05/23 Status: Ordered famotidine 20 mg oral tablet 20 mg, 1, tablet, By Mouth, 2 times a day, # 60 tablet, Refills 1, Tot. Refills 1, Maintenance, 06/18/23 15:56:00 EDT, Route to Pharmacy Electronically, [facility]/pharmacy #[id number], Partial fill upon patient request [...] MRI Safety Implantable Status Assigning Authority Unknown [id number] Unknown 10/04/21 Unknown Unknown Active Unknown Patient Care team information Care Team Personnel Name: Mendy Spicer RN Position: [facility] RN Member Role: Primary Care Nurse Name: Shiela Mays RN Position: [facility] RN Member Role: Primary Care Nurse Name: Ashley Fields RN Position: [facility] MR W/ Merge Member Role: Primary Care Nurse Name: Keith Stacy MD Position: [facility] HELP DESK REP MD Member Role: Lifetime HELP DESK REP Physician Address: Address: [address] [place] [address] Name: Robin Wagner Position: [facility] RN Member Role: Primary Care Nurse Name: Justin Francis RN Position: [facility] ED RN W/OE and Tasks Member Role: Primary Care Nurse Name: Laya Montes RN Position: [facility] RN Member Role: Primary Care Nurse Name: Alice Juarez RN Position: [facility] RN Member Role: Primary Care Nurse Name: Fela Garcia RN Position: [facility] ED RN W/OE and Tasks Member Role: Primary Care Nurse Name: Anay Rouse RN Position: [facility] RN Member Role: Primary Care Nurse Name: Jennifer Weaver RN Position: [facility] RN Member Role: Primary Care Nurse Name: Roxana Young RN Position: [facility] ED RN W/OE and Tasks Member Role: Primary Care Nurse Name: Oswald Harley NP Position: [facility] PCO Associate Professional Member Role: PCP Address: Address: [address] [place] [id number] Name: David TIDWELL, Neda Li Position: [facility] AMB Nurse Member Role: Primary Care Nurse Care Team Related Persons Name: MCKEONMENDEL Whatley Address: home [address], [place] [address] Name: GIANA LAMAS Address: home [address] [place] [address] Name: ROSHNI JUÁREZ Address: home [address] [place] [address] Name: ANGELICA JUÁREZ Address: home [address] [place] [address] Name: SINDHU SCHRADER Address: home [address] [place] [address] Name: CRAIG VACA Address: home [address] [place] [address]
--- OUTSIDE RECORDS SUMMARY | 2023-09-08 20:48 | XMS_ITS | Continuity of Care Document ---
Author Organization [facility] Address [address] [place] [address] [address] [place] [address]- Care Team Providers Care Early Childhood Education Instructor Name Role Phone Cherri DELAROSA, Oswald Brandon Primary Care Physicia n Encounter [facility] Date(s): 07/21/23 - 08/20/[address] [place] [address]- Attending Physician: Admtr, Ar8 Admitting Physician: Admtr, [...] to Pharmacy Electronically, [facility]/pharmacy #[id number],Partial fill upon patient request if the prescripti... [...] Gm, 0 Refills, Maintenance, 08/03/23 12:06:00 EDT, [facility]/pharmacy #1130, with dose counter. any albuterol inhaler covered by insurance is fine., 2 puffs Inhalation Every 4 hours,PRN:cough,... Start Date: 08/03/23 Status: Ordered albuterol CFC free 90 mcg/inh inhalation aerosol 2, puffs, Inhalation, Every 6 hours, PRN, # 1 each, Refills 11, Tot. Refills 11, Maintenance, 04/16/23 13:07:00 EST, Aerosol, Route to Pharmacy Electronically, [id number], [facility]/pharmacy #1130, 173, cm, 03/30/23 11:29:00 EST, H... Start Date: 04/16/23 Stop Date: 04/10/24 Status: Ordered cetirizine 10 mg oral tablet 1 tablet = 10 mg, By Mouth, Daily, PRN allergies, # 90 tablet, 0 Refills, Maintenance, 08/03/23 12:06:00 EDT, Tablet, [facility]/pharmacy #1130, Partial fill upon [...] Refills, Maintenance, 03/05/23 16:28:00 EST, [facility], 173, cm, 11/06/22 11:43:00 EDT, Height, 50, [...] 0 Refills, Maintenance, 04/29/22 13:40:00 EST, Tablet, [facility]/pharmacy #1130, Partial fill upon [...] MRI Safety Implantable Status Assigning Authority Unknown [id number] Unknown 10/04/21 Unknown Unknown Active Unknown Patient Care team information Care Team Personnel Name: Mendy Spicer RN Position: [facility] RN Member Role: Primary Care Nurse Name: Shiela Mays RN Position: [facility] RN Member Role: Primary Care Nurse Name: Ashley Fields RN Position: [facility] MR W/ Merge Member Role: Primary Care Nurse Name: Keith Stacy MD Position: [facility] ADVERTISING DISPLAY ROTATOR MD Member Role: Lifetime ADVERTISING DISPLAY ROTATOR Physician Address: Address: [address] [place] [address]- Name: Robin Wagner Position: [facility] RN Member Role: Primary Care Nurse Name: Justin Francis RN Position: [facility] RN Member Role: Primary Care Nurse Name: Laya Montes RN Position: [facility] RN Member Role: Primary Care Nurse Name: Alice Juarez RN Position: [facility] RN Member Role: Primary Care Nurse Name: Fela Garcia RN Position: [facility] ED RN W/OE and Tasks Member Role: Primary Care Nurse Name: Anay Rouse RN Position: [facility] RN Member Role: Primary Care Nurse Name: Jennifer Weaver RN Position: [facility] RN Member Role: Primary Care Nurse Name: Roxana Young RN Position: [facility] RN Member Role: Primary Care Nurse Name: Oswald Harley NP Position: [facility] PCO Associate Professional Member Role: PCP Address: Address: [address] [place] [id number]- Name: Neda Hernandez RN Position: [facility] AMB Nurse Member Role: Primary Care Nurse Care Team Related Persons Name: MENDEL MCKEON Address: home [address] [place] [address] Name: GIANA LAMAS Address: home [address] [place] [address] Name: ROSHNI JUÁREZ Address: home [address] [place] [address] Name: ANGELICA JUÁREZ Address: home [address] [place] [address] Name: SINDHU SCHRADER Address: home [address] [place] [address] Name: CRAIG VACA Address: home [address] [place] [address]
--- OUTSIDE RECORDS SUMMARY | 2023-09-08 20:48 | XMS_ITS | Continuity of Care Document ---
Author Organization [facility] Address [address] [place] [address]- Care Team Providers Care Art History Instructor Name Role Phone Cherri DELAROSA, Oswald Brandon Primary Care Physicia n Encounter [facility] [place] Date(s): 08/05/23 - 09/06/[address] [address]- Attending Physician: Not on Staff, Attending MD [...] 10/30/21 15:13:00 EDT, Route to Pharmacy Electronically, [facility]/pharmacy #[id number],Partial fill upon patient request if the prescripti... [...] Gm, 0 Refills, Maintenance, 08/03/23 12:06:00 EDT, [facility]/pharmacy #[id number], with dose counter. any albuterol inhaler covered by insurance is fine., 2 puffs Inhalation Every 4 hours,PRN:cough,... Start Date: 08/03/23 Status: Ordered albuterol CFC free 90 mcg/inh inhalation aerosol 2, puffs, Inhalation, Every 6 hours, PRN, # 1 each, Refills 11, Tot. Refills 11, Maintenance, 04/16/23 13:07:00 EST, Aerosol, Route to Pharmacy Electronically, [id number], [facility]/pharmacy #[id number], 173, cm, 03/30/23 11:29:00 EST, H... Start Date: 04/16/23 Stop Date: 04/10/24 Status: Ordered cetirizine 10 mg oral tablet 1 tablet = 10 mg, By Mouth, Daily, PRN allergies, # 90 tablet, 0 Refills, Maintenance, 08/03/23 12:06:00 EDT, Tablet, [facility]/pharmacy #[id number], Partial fill upon patient request [...] Refills, Maintenance, 03/05/23 16:28:00 EST, [id number], 173, cm, 11/06/22 11:43:00 EDT, Height, 50, kg, 04/27/22 4:20:00 EST, Dry Weight Start Date: 03/05/23 Status: Ordered famotidine 20 mg oral tablet 20 mg, 1, tablet, By Mouth, 2 times a day, # 60 tablet, Refills 1, Tot. Refills 1, Maintenance, 06/18/23 15:56:00 EDT, Route to Pharmacy Electronically, [facility]/pharmacy #[id number], Partial fill upon patient request [...] 0 Refills, Maintenance, 04/29/22 13:40:00 EST, Tablet, [facility]/pharmacy #[id number], Partial fill upon patient request [...] MRI Safety Implantable Status Assigning Authority Unknown [id number] Unknown 10/04/21 Unknown Unknown Active Unknown Patient Care team information Care Team Personnel Name: Mendy Spicer RN Position: [facility] RN Member Role: Primary Care Nurse Name: Shiela Mays RN Position: [facility] RN Member Role: Primary Care Nurse Name: Ashley Fields RN Position: [facility] MR W/ Merge Member Role: Primary Care Nurse Name: Keith Stacy MD Position: [facility] IT DESKTOP SUPPORT TECHNICIAN MD Member Role: [employer] IT DESKTOP SUPPORT TECHNICIAN Physician Address: Address: [address] [place] [id number]- Name: Robin Wagner Position: [facility] RN Member Role: Primary Care Nurse Name: Justin Francis RN Position: [facility] RN Member Role: Primary Care Nurse Name: Laya Montes RN Position: [facility] RN Member Role: Primary Care Nurse Name: Alice Juarez RN Position: [facility] RN Member Role: Primary Care Nurse Name: Fela Garcia RN Position: [facility] ED RN W/OE and Tasks Member Role: Primary Care Nurse Name: Anay Rouse RN Position: [facility] RN Member Role: Primary Care Nurse Name: Jennifer Weaver RN Position: [facility] RN Member Role: Primary Care Nurse Name: Roxana Young RN Position: [facility] RN Member Role: Primary Care Nurse Name: Oswald Harley NP Position: [facility] PCO Associate Professional Member Role: PCP Address: Address: [address] [place] [address]- Name: Neda Hernandez RN Position: [facility] AMB Nurse Member Role: Primary Care Nurse Care Team Related Persons Name: MCKEONMENDEL Address: home [address] [place] [address] Name: GIANA LAMAS Address: home [address] [place] [address] Name: ROSHNI JUÁREZ Address: home [address] [place] [address] Name: ANGELICA JUÁREZ Address: home [address] [place] [address] Name: SINDHU SCHRADER Address: home [address] [place] [address] Name: CRAIG VACA Address: home [address] [place] [address]
--- OUTSIDE RECORDS SUMMARY | 2023-09-08 20:48 | XMS_ITS | Continuity of Care Document ---
Author Organization [facility] Address [address] [place] [address]- Care Team Providers Care Job Order Clerk Name Role Phone Oswald Harley NP Primary Care Physicia n Encounter [facility] [place] Date(s): 03/30/23 - 04/06/23 [facility] [address] [place] [address]- Attending Physician: Danelle Garcia MD Referring Physician: Oswald Harley NP Allergies, [...] 10/30/21 15:13:00 EDT, Route to Pharmacy Electronically, [facility]/pharmacy #[id number],Partial fill upon patient request if the prescripti... Start Date: 10/30/21 Status: Ordered albuterol CFC free 90 mcg/inh inhalation aerosol 2, puffs, Inhalation, Every 6 hours, PRN, # 1 each, Refills 11, Tot. Refills 11, Maintenance, 10/10/21 9:46:00 EDT, Aerosol, Route to Pharmacy Electronically, [id number], [place], [place] - [id number], 173, c... Start Date: 10/10/21 Stop Date: 10/05/22 Status: Ordered dicyclomine 20 mg oral tablet 1 tablet = 20 mg, By Mouth, 3 times a day, For stomach cramping., # 21 tablet, 0 Refills, Maintenance, 05/24/22 11:58:00 EDT, Tablet, [facility]/pharmacy #1130, Partial fill upon patient request if the prescription is for a schedule II opioid drug., 173, cm,... Start Date: 05/24/22 Stop Date: 05/31/22 Status: Ordered estradiol 2 mg oral tablet 1 tablet, By Mouth, Daily, # 30 tablet, 0 Refills, Maintenance, 03/05/23 16:28:00 EST, [id number], 173, cm, 11/06/22 11:43:00 EDT, Height, 50, kg, 04/27/22 4:20:00 EST, Dry Weight Start Date: 03/05/23 Status: Ordered famotidine 20 mg oral tablet 20 mg, 1, tablet, By Mouth, 2 times a day, # 60 tablet, Refills 0, Tot. Refills 0, Maintenance, 05/26/22 8:45:00 EDT, Route to Pharmacy Electronically, [facility]/pharmacy #[id number], Partial fill upon patient request if the prescription is for a schedule II opio... Start Date: 05/26/22 Status: Ordered famotidine 20 mg oral tablet 20 mg, 1, tablet, By Mouth, 2 times a day, # 180 tablet, Refills 0, Tot. Refills 0, Maintenance, 05/26/22 9:05:00 EDT, Route to Pharmacy Electronically, [facility]/pharmacy #1130, Partial fill upon patient request if the prescription is for a schedule II opi... Start Date: 05/26/22 Status: Ordered meclizine 12.5 mg oral tablet 1 tablet = 12.5 mg, By Mouth, 3 times a day, PRN for dizziness, # 30 tablet, 0 Refills, Acute 11/08/23 12:26:00 EDT, 11/06/22 12:26:00 EDT, Tablet, [facility]/pharmacy #1130, Partial fill upon patient request if the prescription is for a schedule II opioid d... Start Date: 11/06/22 Stop Date: 11/08/23 Status: Ordered omeprazole 40 mg oral enteric coated capsule 1 capsule = 40 mg, By Mouth, Daily, For abdominal pain/ stomach acid/ reflux, # 14 capsule, 0 Refills, Maintenance, 05/24/22 11:59:00 EDT, EC Capsule, [facility]/pharmacy #1130, Partial fill upon patient request if the prescription is for a schedule II opioi... Start Date: 05/24/22 Stop Date: 06/07/22 Status: Ordered ondansetron 4 mg oral tablet, disintegrating 1 tablet = 4 mg, By Mouth, Every 8 hours, PRN as needed for nausea/vomiting, # 12 tablet, 0 Refills, Maintenance, 05/26/22 8:45:00 EDT, DIS Tablet, [facility]/pharmacy #[id number], Partial fill upon patient request if the prescription is for a schedule II opioid d... Start Date: 05/26/22 Status: Ordered ondansetron 4 mg oral tablet, disintegrating 1 tablet = 4 mg, By Mouth, Every 8 hours, PRN as needed for nausea/vomiting, # 14 tablet, 0 Refills, Maintenance, 05/26/22 9:05:00 EDT, DIS Tablet, [facility]/pharmacy #[id number], Partial fill upon patient request [...] Most recent to oldest [Reference Range]: 1 Height 173 cm (03/30/23 11:29 AM) Oxygen Saturation [94-100 %] 100 % (03/30/23 11:29 AM) Pulse Rate [55-90 bpm] 61 bpm (03/30/23 11:29 AM) Blood Pressure [90-138/55-84 mm Hg] 117/ 79mm Hg (03/30/23 11:29 AM) Respiratory Rate [16-30 br/min] 20 br/mi n (03/30/23 11:29 AM) Temperature [96.8-100.4 DegF] 96.3 DegF *L* (03/30/23 11:29 AM) Mode of Delivery (Oxygen) Room air (03/30/23 11:29 AM) Blood pressure sites Arm, left (03/30/23 11:29 AM) Temperature Route Temporal (03/30/23 11:29 AM) Social History Social History Type Response [...] MRI Safety Implantable Status Assigning Authority Unknown [id number] Unknown 10/04/21 Unknown Unknown Active Unknown Note * Ryanne Burden: PERFORM, SIGN, VERIFY Event Display: Patient Education/Instruction Authored Date: [id number] [facility] *[facility] Clinical Summary Name ASHER JUÁREZ Age 32 Years 1990 PCP Oswald Harley NP PCP Visit Date 03/30/2023 11:17:00 Additional Instructions: Scheduled Appointments?? Future Appointments ?No Future Appointments Scheduled Follow-Up Instructions ?? Diagnosis Medications: Please continue your medications until treatment is completed or stopped by your provider. Discuss any questions related to medications with your provider. Medications to Continue with No Changes These medications were not printed or sent to your pharmacy Acetaminophen (acetaminophen 325 mg oral tablet) 2 tab(s) Oral every 4 hours as needed as needed for fever. Refills: 0. Next Dose: Albuterol (albuterol CFC free 90 mcg/inh inhalation aerosol) 2 puff(s) Inhalation every 6 hours as needed Wheezing/Shortness of Breath for 30 Days. Refills: 11. Next Dose: Dicyclomine (dicyclomine 20 mg oral tablet) 1 tab(s) Oral 3 times a day for 7 Days. For stomach cramping.. Refills: 0. Next Dose: Estradiol (estradiol 2 mg oral tablet) 1 tab(s) Oral Daily. Refills: 0. Next Dose: Famotidine (famotidine 20 mg oral tablet) 1 tab(s) Oral twice a day. Refills: 0. Next Dose: Famotidine (famotidine 20 mg oral tablet) 1 tab(s) Oral twice a day. Refills: 0. Next Dose: Meclizine (meclizine 12.5 mg oral tablet) 1 tab(s) Oral 3 times a day as needed for dizziness. Refills: 0. Next Dose: Omeprazole (omeprazole 40 mg oral enteric coated capsule) 1 capsule Oral Daily for 14 Days. For abdominal pain/ stomach acid/ reflux. Refills: 0. Next Dose: Ondansetron (ondansetron 4 mg oral tablet, disintegrating) 1 tab(s) Oral every 8 hours as needed asneeded for nausea/vomiting. Refills: 0. Next Dose: Ondansetron (ondansetron 4 mg oral tablet, disintegrating) 1 tab(s) Oral every 8 hours as needed asneeded for nausea/vomiting. Refills: 0. Next Dose: PredniSONE (predniSONE 5 mg oral tablet) 1 tab(s) Oral Daily for 5 Days. Refills: 0. Next Dose: Allergy Info:?? Other Food Allergy; Cats Medications Given This Visit Future Orders ?No future orders Vital Signs Height 173 cm Weight BMI Blood Pressure 117 mm Hg/79 mm Hg Temperature 96.3 DegF Pulse Rate 61 bpm Respiratory Rate 20 br/min 02 Sat Mode of Delivery 100 %/Room air You can now view a summary of your hospital visit from the comfort of your home through a free online portal called [employer]. [employer] is a website that allows you to securely view your medical information including discharge summary, medications and follow-up visits. ??You can alsosend a secure electronic message to your doctor???s office to request appointments, renew medications or just ask a question. You can enroll at [email or web address] or register during your next office visit. Disclaimer:?? The information provided is of a general nature and is intended to be used in conjunction with the recommendations and advice of your health care practitioner. ??Every effort has been made to ensure that the information provided is accurate and complete at the time it is provided to you however, as your needs change, or, as new ??information becomes available, different or additional instructions may be required. If you have questions, please consult with your primary care provider or pharmacist, as appropriate. ??This information is not intended to serve as substitution for assessment and evaluation by a qualified health care provider. If you do not have a primary care provider, you may find a [facility] provider by calling [facility] at [phone]. [facility], in keeping with [facility] guidance, no longer requires face masks for staff, patientsor visitors in most situations. Similar to time spent indoors at other locations, there is the chance that you were exposed to respiratory viruses during your time with us (such as flu or COVID-19).? If you develop symptoms concerning for a viral respiratory infection, please seek testing (and treatment if indicated) from your medical provider or home test kit. For information about the plan of care including goals and instructions for your diagnosis, please see the patient education orders section of this document. Patient Education Materials?? The content of this educational material or handout may have been modified, supplemented, or adapted from its original content and format to support your individualized medical care. Patient Care team information Care Team Personnel Name: Mendy Spicer RN Position: [facility] RN Member Role: Primary Care Nurse Name: Shiela Mays RN Position: [facility] RN Member Role: Primary Care Nurse Name: Ashley Fields RN Position: [facility] MR W/ Merge Member Role: Primary Care Nurse Name: Keith Stacy MD Position: [facility] DICE SPOTTER Member Role: [employer] DICE SPOTTER Physician Address: Address: [address] [place] [id number] Name: Robin Wagner Position: [facility] RN Member Role: Primary Care Nurse Name: Justin Francis RN Position: [facility] ED RN W/OE and Tasks Member Role: Primary Care Nurse Name: Laya Montes RN Position: [facility] RN Member Role: Primary Care Nurse Name: Alice Juarez RN Position: [facility] RN Member Role: Primary Care Nurse Name: Feal Garcia RN Position: [facility] ED RN W/OE and Tasks Member Role: Primary Care Nurse Name: Anay Rouse RN Position: [facility] RN Member Role: Primary Care Nurse Name: Jennifer Weaver RN Position: [facility] RN Member Role: Primary Care Nurse Name: Roxana Young RN Position: [facility] RN Member Role: Primary Care Nurse Name: Oswald Harley NP Position: [facility] PCO Associate Professional Member Role: PCP Address: Address: [address] [place] [address]- Name: David TIDWELL, Neda Li Position: [facility] AMB Nurse Member Role: Primary Care Nurse Care Team Related Persons Name: MENDEL MCKEON Address: home [address], [place] [address] Name: GIANA LAMAS Address: home [address] [place] [address] Name: ROSHNI JUÁREZ Address: home [address] [place] [address] Name: SINDHU SCHRADER Address: home [address] [place] [address] Name: CRAIG VACA Address: home [address] [place] [address]
--- OUTSIDE RECORDS SUMMARY | 2023-09-08 20:48 | XMS_ITS | Continuity of Care Document ---
Author Organization [facility] Address [address] [place] [address]- Care Team Providers Care Transit Mix Operator Name Role Phone Cherri DELAROSA, Oswald Brandon Primary Care Physicia n [place] [facility] [place] 11[place] - 01/03/[address] [address]- Attending Physician: Not on Staff, Attending MD [...] 10/30/21 15:13:00 EDT, [id number] upon patient request if the prescripti... Start Date: 10/30/21 Status: Ordered albuterol CFC free 90 mcg/inh inhalation aerosol 2, puffs, Inhalation, Every 6 hours, PRN, # 1 each, Refills 11, Tot. Refills 11, Maintenance, 10/10/21 9:46:00 EDT, Aerosol, Route to Pharmacy Electronically, [id number], [place], [place] - [id number], 173, c... Start Date: 10/10/21 Stop Date: 10/05/22 Status: Ordered cyclobenzaprine 5 mg oral tablet 1 tablet = 5 mg, By Mouth, 3 times a day, for 3 days, take one tablet up to 3 times daily, # 9 tablet, 0 Refills, Acute 01/06/23 20:27:00 EDT, 01/03/23 20:27:00 EDT, [facility]/pharmacy #1130, Partial fill upon patient request if the prescription is for a sc... Start Date: 01/03/23 Stop Date: 01/06/23 Status: Ordered dicyclomine 20 mg oral tablet 1 tablet = 20 mg, By Mouth, 3 times a day, For stomach cramping., # 21 tablet, 0 Refills, Maintenance, 05/24/22 11:58:00 EDT, Tablet, [facility]/pharmacy #1130, Partial fill upon patient request if the prescription is for a schedule II opioid drug., 173, cm,... Start Date: 05/24/22 Stop Date: 05/31/22 Status: Ordered estradiol 2 mg oral tablet 1 tablet = 2 mg, By Mouth, Daily, # 30 tablet, 0 Refills, Maintenance, 11/11/22 8:39:00 EDT, Tablet, [facility]/pharmacy #1130, Partial fill upon patient request if the prescription is for a schedule II opioid drug., 173, cm, 11/06/22 11:43:00 EDT, Height, 5... Start Date: 11/11/22 Status: Ordered famotidine 20 mg oral tablet 20 mg, 1, tablet, By Mouth, 2 times a day, # 60 tablet, Refills 0, Tot. Refills 0, Maintenance, 05/26/22 8:45:00 EDT, Route to Pharmacy Electronically, [id number], Partial fill upon patient request if the prescription is for a schedule II opio... Start Date: 05/26/22 Status: Ordered famotidine 20 mg oral tablet 20 mg, 1, tablet, By Mouth, 2 times a day, # 180 tablet, Refills 0, Tot. Refills 0, Maintenance, 05/26/22 9:05:00 EDT, Route to Pharmacy Electronically, [facility], [...] Refills, Maintenance, 05/26/22 9:05:00 EDT, DIS Tablet, [facility]/pharmacy #1130, Partial fill upon patient request if [...] MRI Safety Implantable Status Assigning Authority Unknown [id number] Unknown 10/04/21 Unknown Unknown Active Unknown Patient Care team information Care Team Personnel Name: Mendy Spicer RN Position: [facility] RN Member Role: Primary Care Nurse Name: Shiela Mays RN Position: [facility] RN Member Role: Primary Care Nurse Name: Ashley Fields RN Position: [facility] MR W/ Merge Member Role: Primary Care Nurse Name: Keith Stacy MD Position: [facility] PLANT FACILITIES TECHNICIAN MD Member Role: [employer]etime PLANT FACILITIES TECHNICIAN Physician Address: Address: [address] [place] [id number]- [place] Name: Robin Wagner Position: [facility] [...] Professional Member Role: PCP Address: Address: [address] [place] [address]- [place] Name: David TIDWELL, Neda Li Position: [facility] AMB Nurse Member Role: Primary Care Nurse Care Team Related Persons Name: MENDEL MCKEON Address: home [address] [address] Name: GIANA LAMAS Address: home [address] [place] [address] Name: ROSHNI JUÁREZ Address: [place] [address] Name: SINDHU SCHRADER Address: home [address] [place] [address] Name: CRAIG VACA Address: home [address] [place] [address]
--- OUTSIDE RECORDS SUMMARY | 2023-09-08 20:48 | XMS_ITS | Continuity of Care Document ---
Author Organization [facility] Address [address] [place] [address]- Care Team Providers Care Stage Director Name Role Phone Cherri DELAROSA, Oswald Brandon Primary Care Physicia n Encounter [facility] Date(s): 01/06/23 - 02/08/[address] [address]- Attending Physician: Not on Staff, Attending MD [...] 15:13:00 EDT, [id number] upon patient request if the prescripti... Start Date: 10/30/21 Status: Ordered albuterol CFC free 90 mcg/inh inhalation aerosol 2, puffs, Inhalation, Every 6 hours, PRN, # 1 each, Refills 11, Tot. Refills 11, Maintenance, 10/10/21 9:46:00 EDT, Aerosol, Route to Pharmacy Electronically, [id number], [place], [place] - [id number], 173, c... Start Date: 10/10/21 Stop Date: 10/05/22 Status: Ordered dicyclomine 20 mg oral tablet 1 tablet = 20 mg, By Mouth, 3 times a day, For stomach cramping., # 21 tablet, 0 Refills, Maintenance, 05/24/22 11:58:00 EDT, Tablet, [facility]/pharmacy #[id number], Partial fill upon patient request if the prescription is for a schedule II opioid drug., 173, cm,... Start Date: 05/24/22 Stop Date: 05/31/22 Status: Ordered estradiol 2 mg oral tablet 1 tablet = 2 mg, By Mouth, Daily, # 30 tablet, 0 Refills, Maintenance, 11/11/22 8:39:00 EDT, Tablet, [facility]/pharmacy #1130, Partial fill upon patient request if the prescription is for a schedule II opioid drug., 173, cm, 11/06/22 11:43:00 EDT, Height, 5... Start Date: 11/11/22 Status: Ordered famotidine 20 mg oral tablet 20 mg, 1, tablet, By Mouth, 2 times a day, # 60 tablet, Refills 0, Tot. Refills 0, Maintenance, 05/26/22 8:45:00 EDT, Route to Pharmacy Electronically, [facility]/pharmacy #[id number], Partial fill upon patient request if the prescription is for a schedule II opio... Start Date: 05/26/22 Status: Ordered famotidine 20 mg oral tablet 20 mg, 1, tablet, By Mouth, 2 times a day, # 180 tablet, Refills 0, Tot. Refills 0, Maintenance, 05/26/22 9:05:00 EDT, Route to Pharmacy Electronically, [facility]/pharmacy #1130, Partial fill upon patient request if the prescription is for a schedule II opi... Start Date: 05/26/22 Status: Ordered meclizine 12.5 mg oral tablet 1 tablet = 12.5 mg, By Mouth, 3 times a day, PRN for dizziness, # 30 tablet, 0 Refills, Acute 11/08/23 12:26:00 EDT, 11/06/22 12:26:00 EDT, Tablet, [facility]/pharmacy #1130, Partial fill upon patient request if the prescription is for a schedule II opioid d... Start Date: 11/06/22 Stop Date: 11/08/23 Status: Ordered omeprazole 40 mg oral enteric coated capsule 1 capsule = 40 mg, By Mouth, Daily, For abdominal pain/ stomach acid/ reflux, # 14 capsule, 0 Refills, Maintenance, 05/24/22 11:59:00 EDT, EC Capsule, [facility]/pharmacy #1130, Partial fill upon patient request if the prescription is for a schedule II opioi... Start Date: 05/24/22 Stop Date: 06/07/22 Status: Ordered ondansetron 4 mg oral tablet, disintegrating 1 tablet = 4 mg, By Mouth, Every 8 hours, PRN as needed for nausea/vomiting, # 12 tablet, 0 Refills, Maintenance, 05/26/22 8:45:00 EDT, DIS Tablet, [facility]/pharmacy #0488, Partial fill upon patient request if the prescription is for a schedule II opioid d... Start Date: 05/26/22 Status: Ordered ondansetron 4 mg oral tablet, disintegrating 1 tablet = 4 mg, By Mouth, Every 8 hours, PRN as needed for nausea/vomiting, # 14 tablet, 0 Refills, Maintenance, 05/26/22 9:05:00 EDT, DIS Tablet, [facility]/pharmacy #1130, Partial fill upon patient request if [...] MRI Safety Implantable Status Assigning Authority Unknown [id number] Unknown 10/04/21 Unknown Unknown Active Unknown Patient Care team information Care Team Personnel Name: Mendy Spicer RN Position: [facility] RN Member Role: Primary Care Nurse Name: Shiela Mays RN Position: [facility] RN Member Role: Primary Care Nurse Name: Ashley Fields RN Position: [facility] MR W/ Merge Member Role: Primary Care Nurse Name: Keith Stacy MD Position: [facility] CARRIAGE SETTER MD Member Role: Lifetime CARRIAGE SETTER Physician Address: Address: [address] [place] [address] Name: Robin Wagner Position: [facility] RN Member Role: Primary Care Nurse Name: Justin Francis RN Position: [facility] ED RN W/OE and Tasks Member Role: Primary Care Nurse Name: Laya Montes RN Position: [facility] RN Member Role: Primary Care Nurse Name: Alice Juarez RN Position: [facility] RN Member Role: Primary Care Nurse Name: Fela Garcia RN Position: [facility] ED RN W/OE and Tasks Member Role: Primary Care Nurse Name: Anay Rouse RN Position: [facility] RN Member Role: Primary Care Nurse Name: Jennifer Weaver RN Position: [facility] RN Member Role: Primary Care Nurse Name: Roxana Young RN Position: [facility] RN Member Role: Primary Care Nurse Name: Oswald Harley NP Position: [facility] PCO Associate Professional Member Role: PCP Address: Address: [address] [place] [id number] Name: David TIDWELL, Neda Li Position: [facility] AMB Nurse Member Role: Primary Care Nurse Care Team Related Persons Name: MENDEL MCKEON Address: home [address], [place] [address] Name: GIANA LAMAS Address: home [address] [place] [address] Name: ROSHNI JUÁREZ Address: [place] [address] Name: SINDHU SCHRADER Address: home [address] [place] [address] Name: CRAIG VACA Address: home [address] [place] [address]
--- OUTSIDE RECORDS SUMMARY | 2023-09-08 20:48 | XMS_ITS | Continuity of Care Document ---
Author Organization [facility] Address [address] [place] [address]- Care Team Providers Care Underwriting Support Specialist Name Role Phone Cherri DELAROSA, Oswald Brandon Primary Care Physicia n Encounter [facility] Date(s): 08/07/23 - 09/06/[address] [address]- Attending Physician: Admtr, Ar8 Admitting Physician: Admtr, [...] 15:13:00 EDT, Route to Pharmacy Electronically, [facility]/pharmacy #[id number],Partial fill upon patient request if the prescripti... [...] Gm, 0 Refills, Maintenance, 08/03/23 12:06:00 EDT, [facility]/pharmacy #1130, with dose counter. any albuterol inhaler covered by insurance is fine., 2 puffs Inhalation Every 4 hours,PRN:cough,... Start Date: 08/03/23 Status: Ordered albuterol CFC free 90 mcg/inh inhalation aerosol 2, puffs, Inhalation, Every 6 hours, PRN, # 1 each, Refills 11, Tot. Refills 11, Maintenance, 04/16/23 13:07:00 EST, Aerosol, Route to Pharmacy Electronically, [id number], [facility]/pharmacy #1130, 173, cm, 03/30/23 11:29:00 EST, H... Start Date: 04/16/23 Stop Date: 04/10/24 Status: Ordered cetirizine 10 mg oral tablet 1 tablet = 10 mg, By Mouth, Daily, PRN allergies, # 90 tablet, 0 Refills, Maintenance, 08/03/23 12:06:00 EDT, Tablet, [facility]/pharmacy #1130, Partial fill upon patient request [...] Refills, Maintenance, 03/05/23 16:28:00 EST, [id number], 173, cm, 11/06/22 11:43:00 EDT, Height, 50, [...] MRI Safety Implantable Status Assigning Authority Unknown [id number] Unknown 10/04/21 Unknown Unknown Active Unknown Note * Shauna Molina: PERFORM, SIGN, VERIFY Event Display: Patient Education/Instruction Authored Date: [id number] [facility] See Sq Clinical Summary Person Information Visit Date 03/20/2015 8:40 AM Name ASHER JUÁREZ Age 24 Years 1990 12:00 AM PCP Shabana Soto MD, [id number] Sex Female Race Black Ethnicity Non-/Non- Language Haitian You can now view a summary of your hospital visit from the comfort of your home through a free online portal called [employer]. [employer] is a website that allows you to securely view your medical information including discharge summary, medications and follow-up visits. You can also send a secure electronic message to your doctor???s office to request appointments, renew medicationsor just ask a question. You can enroll at [email or web address] or register during your next office visit. Smoking can increase your chances of developing chronic health problems and can cause harmful effects to other family members in your house. If you smoke, you are strongly encouraged to quit. Please call the [place] Smokers??? Helpline at 3-510-EKEUNOW (or ) or log on to [email or web address] for more information. Reason for Visit: Allergy [...] kit) , See Instructions, Intramuscular Once--[facility] will call w/ her insurance [...] primary care provider, you may find a [facility] provider by calling [facility] Link at [phone]. For information about the plan of care including goals and instructions for your diagnosis, please see the patient education orders section of this document. Patient Visit Summary: Future Appointments: Type Location Start Finish State Return [facility] Neurology 02/21/2015 2:00 PM 02/21/2015 2:30 PM Pending Return Adult [facility] See Sq 03/20/2015 8:40 AM 03/20/2015 8:55 AM Pending Follow-Up Instructions With: Address: When: NEUROLOGY APPT 02/22/16 2P @ [address] Comments: Patient Education Materials Additional Instructions: Patient Care team information Care Team Personnel Name: Mendy Spicer RN Position: [facility] RN Member Role: Primary Care Nurse Name: Shiela Mays RN Position: [facility] RN Member Role: Primary Care Nurse Name: Ashley Fields RN Position: [facility] MR W/ Merge Member Role: Primary Care Nurse Name: Keith Stacy MD Position: [facility] JELLY MAKER MD Member Role: Lifetime JELLY MAKER Physician Address: Address: [address] [place] [address]- Name: Robin Wagner Position: [facility] RN Member Role: Primary Care Nurse Name: Justin Francis RN Position: [facility] RN Member Role: Primary Care Nurse Name: Laya Montes RN Position: [facility] RN Member Role: Primary Care Nurse Name: Alice Juarez RN Position: [facility] RN Member Role: Primary Care Nurse Name: Fela Garcia RN Position: [facility] ED RN W/OE and Tasks Member Role: Primary Care Nurse Name: Anay Rouse RN Position: [facility] RN Member Role: Primary Care Nurse Name: Jennifer Weaver RN Position: [facility] RN Member Role: Primary Care Nurse Name: Roxana Young RN Position: [facility] RN Member Role: Primary Care Nurse Name: Oswald Harley NP Position: [facility] PCO Associate Professional Member Role: PCP Address: Address: [address] [place] [address]- Name: Neda Hernandez RN Position: [facility] AMB Nurse Member Role: Primary Care Nurse Care Team Related Persons Name: MEDNEL MCKEON Address: home [address], [place] [address] Name: GIANA LAMAS Address: home [address] [place] [address] Name: ROSHNI JUÁREZ Address: home [address] [place] [address] Name: ANGELICA JUÁREZ Address: home [address] [place] [address] Name: SINDHU SCHRADER Address: home [address] [place] [address] Name: CRAIG VACA Address: home [address] [place], [place] [id number]
--- OUTSIDE RECORDS SUMMARY | 2023-09-08 20:48 | XMS_ITS | Continuity of Care Document ---
Author Organization [facility] Address [address] [place] [address]- Care Team Providers Care Filter Screen Cleaner Name Role Phone Cherri DELAROSA, Oswald Brandon Primary Care Physicia n Encounter [facility] Date(s): 05/08/23 - 06/07/[address] [address]- Allergies, Adverse Reactions, Alerts Substance Reaction Severity [...] 15:13:00 EDT, Route to Pharmacy Electronically, [facility]/pharmacy #[id number],Partial fill upon patient request if the prescripti... Start Date: 10/30/21 Status: Ordered albuterol CFC free 90 mcg/inh inhalation aerosol 2, puffs, Inhalation, Every 6 hours, PRN, # 1 each, Refills 11, Tot. Refills 11, Maintenance, 04/16/23 13:07:00 EST, Aerosol, Route to Pharmacy Electronically, [id number], [facility]/pharmacy #1130, 173, cm, 03/30/23 11:29:00 EST, H... Start Date: 04/16/23 Stop Date: 04/10/24 Status: Ordered dicyclomine 20 mg oral tablet 1 tablet = 20 mg, By Mouth, 3 times a day, For stomach cramping., # 21 tablet, 0 Refills, Maintenance, 05/24/22 11:58:00 EDT, Tablet, [facility]/pharmacy #1130, Partial fill upon patient request if the prescription is for a schedule II opioid drug., 173, cm,... Start Date: 05/24/22 Stop Date: 05/31/22 Status: Ordered estradiol 2 mg oral tablet 1 tablet, By Mouth, Daily, # 30 tablet, 0 Refills, Maintenance, 03/05/23 16:28:00 EST, [facility] STORE 00[facility], 173, cm, 11/06/22 11:43:00 EDT, Height, 50, kg, 04/27/22 4:20:00 EST, Dry Weight Start Date: 03/05/23 Status: Ordered famotidine 20 mg oral tablet 20 mg, 1, tablet, By Mouth, 2 times a day, # 60 tablet, Refills 0, Tot. Refills 0, Maintenance, 05/26/22 8:45:00 EDT, Route to Pharmacy Electronically, [facility]/pharmacy #[id number], Partial fill upon patient request if the prescription is for a schedule II opio... Start Date: 05/26/22 Status: Ordered famotidine 20 mg oral tablet 20 mg, 1, tablet, By Mouth, 2 times a day, # 180 tablet, Refills 0, Tot. Refills 0, Maintenance, 05/26/22 9:05:00 EDT, Route to Pharmacy Electronically, [facility]/pharmacy #1130, Partial fill upon patient request if the prescription is for a schedule II opi... Start Date: 05/26/22 Status: Ordered meclizine 12.5 mg oral tablet 1 tablet = 12.5 mg, By Mouth, 3 times a day, PRN for dizziness, # 30 tablet, 0 Refills, Acute 11/08/23 12:26:00 EDT, 11/06/22 12:26:00 EDT, Tablet, [facility]/pharmacy #1130, Partial fill upon patient request if the prescription is for a schedule II opioid d... Start Date: 11/06/22 Stop Date: 11/08/23 Status: Ordered omeprazole 40 mg oral enteric coated capsule 1 capsule = 40 mg, By Mouth, Daily, For abdominal pain/ stomach acid/ reflux, # 14 capsule, 0 Refills, Maintenance, 05/24/22 11:59:00 EDT, EC Capsule, [facility]/pharmacy #1130, Partial fill upon patient request if the prescription is for a schedule II opioi... Start Date: 05/24/22 Stop Date: 06/07/22 Status: Ordered ondansetron 4 mg oral tablet, disintegrating 1 tablet = 4 mg, By Mouth, Every 8 hours, PRN as needed for nausea/vomiting, # 12 tablet, 0 Refills, Maintenance, 05/26/22 8:45:00 EDT, DIS Tablet, [facility]/pharmacy #0488, Partial fill upon patient request if the prescription is for a schedule II opioid d... Start Date: 05/26/22 Status: Ordered ondansetron 4 mg oral tablet, disintegrating 1 tablet = 4 mg, By Mouth, Every 8 hours, PRN as needed for nausea/vomiting, # 14 tablet, 0 Refills, Maintenance, 05/26/22 9:05:00 EDT, DIS Tablet, [facility]/pharmacy #1130, Partial fill upon patient request if [...] MRI Safety Implantable Status Assigning Authority Unknown [id number] Unknown 10/04/21 Unknown Unknown Active Unknown [...] Keith Stacy MD Position: [facility] HOT STRIP FINISHER MD Member Role: Lifetime HOT STRIP FINISHER Physician Address: Address: [address] [place] [address] Name: Robin Wagner Position: [facility] RN Member Role: Primary Care Nurse Name: Justni Francis RN Position: [facility] ED [...] Associate Professional Member Role: PCP Address: Address: [address] [place] [id number] Name: David TIDWELL, Neda Li Position: [facility] AMB Nurse Member Role: Primary Care Nurse Care Team Related Persons Name: MENDEL MCKEON Address: home [address] [address] Name: GIANA LAMAS Address: home [address] [place] [address] Name: ROSHNI JUÁREZ Address: home [address] [place] [address] Name: SINDHU SCHRADER Address: home [address] [place] [address] Name: CRAIG VACA Address: home [address] [place] [address]
--- OUTSIDE RECORDS SUMMARY | 2023-09-08 20:48 | XMS_ITS | Continuity of Care Document ---
Author Organization [facility] ter Address [address] [place] [address]- Care Team Providers Care Motor Grader Rough Grade Name Role Phone Oswald Harley NP Primary Care Physicia n Encounter [facility] Date(s): 05/14/23 - 06/21/[address] [address] Attending Physician: James Lobo MD Admitting Physician: James Lobo MD Referring Physician: Olga Barry DO Allergies, Adverse Reactions, Alerts Substance Reaction Severity [...] EDT, Route to Pharmacy Electronically, [facility]/pharmacy #5861,Partial fill upon patient request if the prescripti... Start Date: 10/30/21 Status: Ordered albuterol CFC free 90 mcg/inh inhalation aerosol 2, puffs, Inhalation, Every 6 hours, PRN, # 1 each, Refills 11, Tot. Refills 11, Maintenance, 04/16/23 13:07:00 EST, Aerosol, Route to Pharmacy Electronically, [id number], [facility]/pharmacy #1130, 173, cm, 03/30/23 11:29:00 EST, H... Start Date: 04/16/23 Stop Date: 04/10/24 Status: Ordered dicyclomine 20 mg oral tablet 1 tablet = 20 mg, By Mouth, 3 times a day, For stomach cramping., # 21 tablet, 0 Refills, Maintenance, 05/24/22 11:58:00 EDT, Tablet, [facility]/pharmacy #1130, Partial fill upon patient request if the prescription is for a schedule II opioid drug., 173, cm,... Start Date: 05/24/22 Stop Date: 05/31/22 Status: Ordered estradiol 2 mg oral tablet 1 tablet, By Mouth, Daily, # 30 tablet, 0 Refills, Maintenance, 03/05/23 16:28:00 EST, [facility] STORE 750[facility], 173, cm, 11/06/22 11:43:00 EDT, Height, 50, kg, 04/27/22 4:20:00 EST, Dry Weight Start Date: 03/05/23 Status: Ordered famotidine 20 mg oral tablet 20 mg, 1, tablet, By Mouth, 2 times a day, # 60 tablet, Refills 1, Tot. Refills 1, Maintenance, 06/18/23 15:56:00 EDT, Route to Pharmacy Electronically, [facility]/pharmacy #1130, Partial fill upon patient request [...] MRI Safety Implantable Status Assigning Authority Unknown [id number] Unknown 10/04/21 Unknown Unknown Active Unknown [...] MD Position: [facility] FINANCE DIRECTOR MD Member Role: Lifetime FINANCE DIRECTOR Physician Address: Address: [address] [place] [address] Name: Robin Wagner Position: [facility] [...] Associate Professional Member Role: PCP Address: Address: [address] [place] [address]- Name: David TIDWELL, Neda Li Position: [facility] AMB Nurse Member Role: Primary Care Nurse Care Team Related Persons Name: MCKEONMENDEL Whatley Address: home [address] [address] Name: GIANA LAMAS Address: home [address] [place] [address] Name: ROSHNI JUÁREZ Address: home [address] [place] [address] Name: SINDHU SCHRADER Address: home [address] [place] [address] Name: CRAIG VACA Address: home [address] [place] [address]
--- OUTSIDE RECORDS SUMMARY | 2023-09-08 20:48 | XMS_ITS | Continuity of Care Document ---
Author Organization [facility] Address [address] [place] [address]- Care Team Providers Care Catalyst Supervisor Name Role Phone Cherri DELAROSA, Oswald Brandon Primary Care Physicia n [facility] - 01/31/[address] [address]- Allergies, Adverse Reactions, Alerts Substance Reaction Severity [...] 10/30/21 15:13:00 EDT, Route to Pharmacy Electronically, [facility]/pharmacy #0101,Partial fill upon patient request if the prescripti... Start Date: 10/30/21 Status: Ordered albuterol CFC free 90 mcg/inh inhalation aerosol 2, puffs, Inhalation, Every 6 hours, PRN, # 1 each, Refills 11, Tot. Refills 11, Maintenance, 10/10/21 9:46:00 EDT, Aerosol, Route to Pharmacy Electronically, [id number], [place], [place] - [id number], 173, c... Start Date: 10/10/21 Stop Date: 10/05/22 Status: Ordered dicyclomine 20 mg oral tablet 1 tablet = 20 mg, By Mouth, 3 times a day, For stomach cramping., # 21 tablet, 0 Refills, Maintenance, 05/24/22 11:58:00 EDT, Tablet, [facility]/pharmacy #[id number], Partial fill upon patient request if the prescription is for a schedule II opioid drug., 173, cm,... Start Date: 05/24/22 Stop Date: 05/31/22 Status: Ordered estradiol 2 mg oral tablet 1 tablet = 2 mg, By Mouth, Daily, # 30 tablet, 0 Refills, Maintenance, 11/11/22 8:39:00 EDT, Tablet, [facility]/pharmacy #1130, Partial fill upon patient request if the prescription is for a schedule II opioid drug., 173, cm, 11/06/22 11:43:00 EDT, Height, 5... Start Date: 11/11/22 Status: Ordered famotidine 20 mg oral tablet 20 mg, 1, tablet, By Mouth, 2 times a day, # 60 tablet, Refills 0, Tot. Refills 0, Maintenance, 05/26/22 8:45:00 EDT, Route to Pharmacy Electronically, [facility]/pharmacy #[id number], Partial fill upon patient request if the prescription is for a schedule II opio... Start Date: 05/26/22 Status: Ordered famotidine 20 mg oral tablet 20 mg, 1, tablet, By Mouth, 2 times a day, # 180 tablet, Refills 0, Tot. Refills 0, Maintenance, 05/26/22 9:05:00 EDT, Route to Pharmacy Electronically, [facility]/pharmacy #1130, Partial fill upon patient request if the prescription is for a schedule II opi... Start Date: 05/26/22 Status: Ordered meclizine 12.5 mg oral tablet 1 tablet = 12.5 mg, By Mouth, 3 times a day, PRN for dizziness, # 30 tablet, 0 Refills, Acute 11/08/23 12:26:00 EDT, 11/06/22 12:26:00 EDT, Tablet, [facility]/pharmacy #1130, Partial fill upon patient request if the prescription is for a schedule II opioid d... Start Date: 11/06/22 Stop Date: 11/08/23 Status: Ordered omeprazole 40 mg oral enteric coated capsule 1 capsule = 40 mg, By Mouth, Daily, For abdominal pain/ stomach acid/ reflux, # 14 capsule, 0 Refills, Maintenance, 05/24/22 11:59:00 EDT, EC Capsule, [facility]/pharmacy #1130, Partial fill upon patient request if the prescription is for a schedule II opioi... Start Date: 05/24/22 Stop Date: 06/07/22 Status: Ordered ondansetron 4 mg oral tablet, disintegrating 1 tablet = 4 mg, By Mouth, Every 8 hours, PRN as needed for nausea/vomiting, # 12 tablet, 0 Refills, Maintenance, 05/26/22 8:45:00 EDT, DIS Tablet, [facility]/pharmacy #[id number], Partial fill upon patient request if the prescription is for a schedule II opioid d... Start Date: 05/26/22 Status: Ordered ondansetron 4 mg oral tablet, disintegrating 1 tablet = 4 mg, By Mouth, Every 8 hours, PRN as needed for nausea/vomiting, # 14 tablet, 0 Refills, Maintenance, 05/26/22 9:05:00 EDT, DIS Tablet, [facility]/pharmacy #1130, Partial fill upon patient request [...] MRI Safety Implantable Status Assigning Authority Unknown [id number] Unknown 10/04/21 Unknown Unknown Active Unknown [...] Keith Stacy MD Position: [facility] FILM TECHNICIAN MD Member Role: Lifetime FILM TECHNICIAN Physician Address: Address: [address] [place] [address] Name: Robin Wagner Position: [facility] RN Member Role: Primary Care Nurse Name: Justin Francis RN Position: [facility] ED RN [...] Care Nurse Name: Oswald Harley NP Position: [facility] PCO Associate Professional Member Role: PCP Address: Address: [address] [place] [id number] Name: David TIDWELL, Neda Li Position: [facility] AMB Nurse Member Role: Primary Care Nurse Care Team Related Persons Name: MENDEL MCKEON Address: home [address] [place] [address] Name: GIANA LAMAS Address: home [address] [place] [address] Name: ROSHNI JUÁREZ Address: [place] [address] Name: SINDHU SCHRADER Address: home [address] [place] [address] Name: CRAIG VACA Address: home [address] [place] [address]
--- OUTSIDE RECORDS SUMMARY | 2023-09-08 20:49 | XMS_ITS | Continuity of Care Document ---
Author Organization [facility] Address [address] [place] [address]- Care Team Providers Care Hot Sealing Machine Operator Name Role Phone Cherri DELAROSA, Oswald Brandon Primary Care Physicia n [facility]): [facility] - 07/18/[address] [address]- Attending Physician: Admtr, Ar8 Admitting Physician: Admtr, [...] 10/30/21 15:13:00 EDT, [id number] fill upon patient request if the prescripti... Start Date: 10/30/21 Status: Ordered albuterol CFC free 90 mcg/inh inhalation aerosol 2, puffs, Inhalation, Every 6 hours, PRN, # 1 each, Refills 11, Tot. Refills 11, Maintenance, 04/16/23 13:07:00 EST, Aerosol, Route to Pharmacy Electronically, [id number], [facility]/pharmacy #1130, 173, cm, 03/30/23 11:29:00 EST, H... Start Date: 04/16/23 Stop Date: 04/10/24 Status: Ordered dicyclomine 20 mg oral tablet 1 tablet = 20 mg, By Mouth, 3 times a day, For stomach cramping., # 21 tablet, 0 Refills, Maintenance, 05/24/22 11:58:00 EDT, Tablet, [facility]/pharmacy #1130, Partial fill upon patient request if the prescription is for a schedule II opioid drug., 173, cm,... Start Date: 05/24/22 Stop Date: 05/31/22 Status: Ordered estradiol 2 mg oral tablet 1 tablet, By Mouth, Daily, # 30 tablet, 0 Refills, Maintenance, 03/05/23 16:28:00 EST, [facility] STORE 74985, 173, cm, 11/06/22 11:43:00 EDT, Height, 50, kg, 04/27/22 4:20:00 EST, Dry Weight Start Date: 03/05/23 Status: Ordered famotidine 20 mg oral tablet 20 mg, 1, tablet, By Mouth, 2 times a day, # 60 tablet, Refills 1, Tot. Refills 1, Maintenance, 06/18/23 15:56:00 EDT, Route to Pharmacy Electronically, [facility]/pharmacy #1130, Partial fill upon patient request [...] MRI Safety Implantable Status Assigning Authority Unknown [id number] Unknown 10/04/21 Unknown Unknown Active Unknown Note * Shauna Molina: PERFORM, SIGN, VERIFY Event Display: Patient Education/Instruction Authored Date: [id number] [facility] Clinical Summary Person Information Visit Date 03/20/2015 8:40 AM Name ASHER JUÁREZ Age 24 Years 1990 12:00 AM PCP Shabana Soto MD, I PCP Sex Female Race Black Ethnicity Non-/Non- Language Citizen Of [place] You can now view a summary of your hospital visit from the comfort of your home through a free online portal called mobintent. mobintent is a website that allows you to securely view your medical information including discharge summary, medications and follow-up visits. You can also send a secure electronic message to your doctor???s office to request appointments, renew medicationsor just ask a question. You can enroll at [email or web address] or register during your next office visit. Smoking can increase your chances of developing chronic health problems and can cause harmful effects to other family members in your house. If you smoke, you are strongly encouraged to quit. Please call the [place] Smokers??? Helpline at 0-210-AKUQNOW (or ) or log on to [email or web address] for more information. Reason for Visit: Allergy [...] kit) , See Instructions, Intramuscular Once--then go [facility]-pt will call w/ her insurance info, [...] primary care provider, you may find a [facility] provider by calling [facility] [employer] at [phone]. For information about the plan of care including goals and instructions for your diagnosis, please see the patient education orders section of this document. Patient Visit Summary: Future Appointments: Type Location Start Finish State Return [facility] Neurology 02/21/2015 2:00 PM 02/21/2015 2:30 PM Pending Return Adult [facility] See Sq 03/20/2015 8:40 AM 03/20/2015 8:55 AM Pending Follow-Up Instructions With: Address: When: NEUROLOGY APPT 02/22/16 2P @ [address] [place] [address] Comments: Patient Education Materials Additional Instructions: Patient Care team information Care Team Personnel Name: Mendy Spicer RN Position: [facility] RN Member Role: Primary Care Nurse Name: Shiela Mays RN Position: [facility] RN Member Role: Primary Care Nurse Name: Ashley Fields RN Position: [facility] W/ Merge Member Role: Primary Care Nurse Name: Keith Stacy MD Position: [facility] ORACLE WEBCENTER CONSULTANT Member Role: Lifetime ORACLE WEBCENTER CONSULTANT Physician Address: Address: [address] [place] [address] Name: Robin Wagner [facility] [...] RN Member Role: Primary Care Nurse Name: Cherri DELAROSA, Oswald Brandon Position: [facility] PCO Associate Professional Member Role: PCP Address: Address: [address] [place] [id number]- Name: David TIDWELL, Neda Li Position: [facility] AMB Nurse Member Role: Primary Care Nurse Care Team Related Persons Name: MENDEL MCKEON Address: home [address] [address] Name: GIANA LAMAS Address: home [address] [place] [address] Name: ROSHNI JUÁREZ Address: home [address] [place] [address] Name: ANGELICA JUÁREZ Address: home [address] [place] [address] Name: SINDHU SCHRADER Address: home [address] [place] [address] Name: CRAIG VACA Address: home [address] [place] [address]
--- OUTSIDE RECORDS SUMMARY | 2023-09-08 20:49 | XMS_ITS | Continuity of Care Document ---
Author Organization [facility] Address [address] [place] [address]- Care Team Providers Care Frame Aligner Name Role Phone Cherri DELAROSA, Oswald Brandon Primary Care Physicia n [facility] 01[facility]23 - 02/05/[address] [address]- Allergies, Adverse Reactions, Alerts Substance Reaction Severity [...] 10/30/21 15:13:00 EDT, Route to Pharmacy Electronically, [facility]/pharmacy #[id number],Partial fill upon patient request if the prescripti... Start Date: 10/30/21 Status: Ordered albuterol CFC free 90 mcg/inh inhalation aerosol 2, puffs, Inhalation, Every 6 hours, PRN, # 1 each, Refills 11, Tot. Refills 11, Maintenance, 10/10/21 9:46:00 EDT, Aerosol, Route to Pharmacy Electronically, [id number], [place], [place] - [id number], 173, c... Start Date: 10/10/21 Stop Date: 10/05/22 Status: Ordered dicyclomine 20 mg oral tablet 1 tablet = 20 mg, By Mouth, 3 times a day, For stomach cramping., # 21 tablet, 0 Refills, Maintenance, 05/24/22 11:58:00 EDT, Tablet, [facility]/pharmacy #1130, Partial fill upon patient request if the prescription is for a schedule II opioid drug., 173, cm,... Start Date: 05/24/22 Stop Date: 05/31/22 Status: Ordered estradiol 2 mg oral tablet 1 tablet = 2 mg, By Mouth, Daily, # 30 tablet, 0 Refills, Maintenance, 11/11/22 8:39:00 EDT, Tablet, [facility]/pharmacy #1130, Partial fill upon patient request if the prescription is for a schedule II opioid drug., 173, cm, 11/06/22 11:43:00 EDT, Height, 5... Start Date: 11/11/22 Status: Ordered famotidine 20 mg oral tablet 20 mg, 1, tablet, By Mouth, 2 times a day, # 60 tablet, Refills 0, Tot. Refills 0, Maintenance, 05/26/22 8:45:00 EDT, Route to Pharmacy Electronically, [facility]/pharmacy #[id number], Partial fill upon patient request if the prescription is for a schedule II opio... Start Date: 05/26/22 Status: Ordered famotidine 20 mg oral tablet 20 mg, 1, tablet, By Mouth, 2 times a day, # 180 tablet, Refills 0, Tot. Refills 0, Maintenance, 05/26/22 9:05:00 EDT, Route to Pharmacy Electronically, [facility]/pharmacy #1130, Partial fill upon patient request if the prescription is for a schedule II opi... Start Date: 05/26/22 Status: Ordered meclizine 12.5 mg oral tablet 1 tablet = 12.5 mg, By Mouth, 3 times a day, PRN for dizziness, # 30 tablet, 0 Refills, Acute 11/08/23 12:26:00 EDT, 11/06/22 12:26:00 EDT, Tablet, [facility]/pharmacy #1130, Partial fill upon patient request if the prescription is for a schedule II opioid d... Start Date: 11/06/22 Stop Date: 11/08/23 Status: Ordered omeprazole 40 mg oral enteric coated capsule 1 capsule = 40 mg, By Mouth, Daily, For abdominal pain/ stomach acid/ reflux, # 14 capsule, 0 Refills, Maintenance, 05/24/22 11:59:00 EDT, EC Capsule, [facility]/pharmacy #1130, Partial fill upon patient request if the prescription is for a schedule II opioi... Start Date: 05/24/22 Stop Date: 06/07/22 Status: Ordered ondansetron 4 mg oral tablet, disintegrating 1 tablet = 4 mg, By Mouth, Every 8 hours, PRN as needed for nausea/vomiting, # 12 tablet, 0 Refills, Maintenance, 05/26/22 8:45:00 EDT, DIS Tablet, [facility]/pharmacy #0488, Partial fill upon patient request if the prescription is for a schedule II opioid d... Start Date: 05/26/22 Status: Ordered ondansetron 4 mg oral tablet, disintegrating 1 tablet = 4 mg, By Mouth, Every 8 hours, PRN as needed for nausea/vomiting, # 14 tablet, 0 Refills, Maintenance, 05/26/22 9:05:00 EDT, DIS Tablet, [facility]/pharmacy #1130, Partial fill upon [...] Type Site Repair Hernia Inguinal with Mesh uLciano Maddox MD 02/25/18 Unknown Groin Right Device Identifier Serial Number Lot or Batch Number Manufacturing Date Expiration Date Distinct Identification Code MRI Safety Implantable Status Assigning Authority Unknown [id number] Unknown 10/04/21 Unknown Unknown Active Unknown Patient Care team information Care Team Personnel Name: Mendy Spicer RN Position: [facility] RN Member Role: Primary Care Nurse Name: Shiela Mays RN Position: [facility] RN Member Role: Primary Care Nurse Name: Ashley Fields RN Position: [facility] MR W/ Merge Member Role: Primary Care Nurse Name: Keith Stacy MD Position: [facility] PLANT TOUR GUIDE MD Member Role: Lifetime PLANT TOUR GUIDE Physician Address: Address: [address] [place] [address] Name: Robin Wagner Position: [facility] RN Member Role: Primary Care Nurse Name: Justin Francis RN Position: [facility] ED RN W/OE and Tasks Member Role: Primary Care Nurse Name: Laya Montes RN Position: [facility] RN Member Role: Primary Care Nurse Name: Alice Juarez RN Position: [facility] RN Member Role: Primary Care Nurse Name: Fela Garcia RN Position: [facility] ED RN W/OE and Tasks Member Role: Primary Care Nurse Name: Anay Rouse RN Position: [facility] RN Member Role: Primary Care Nurse Name: Jennifer Weaver RN Position: [facility] RN Member Role: Primary Care Nurse Name: Roxana Young RN Position: [facility] RN Member Role: Primary Care Nurse Name: Oswald Harley NP Position: [facility] PCO Associate Professional Member Role: PCP Address: Address: [address] [place] [id number] Name: David TIDWELL, Neda Li Position: [facility] AMB Nurse Member Role: Primary Care Nurse Care Team Related Persons Name: MENDEL MCKEON Address: home [address] [place] [address] Name: GIANA LAMAS Address: home [address] [place] [address] Name: ROSHNI JUÁREZ Address: [place] [address] Name: SINDHU SCHRADER Address: home [address] [place] [address] Name: CRAIG VACA Address: home [address] [place] [address]
[2023-09-08 20:50] LABS: HCG Quantitative < 2 mIU/mL
--- OUTSIDE RECORDS SUMMARY | 2023-09-08 20:50 | XMS_ITS | Continuity of Care Document ---
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 Start Date: 10/30/21 Status: Ordered albuterol CFC free 90 mcg/inh inhalation aerosol 2, puffs, Inhalation, Every 6 hours, PRN, # 1 each, Refills 11, Tot. Refills 11, Maintenance, 10/10/21 9:46:00 EDT, Aerosol, Route to Pharmacy Electronically, [id number], [place], [place] - [phone], 173, c... Start Date: 10/10/21 Stop Date: 10/05/22 Status: Ordered dicyclomine 20 mg oral tablet 1 tablet = 20 mg, By Mouth, 3 times a day, For stomach cramping., # 21 tablet, 0 Refills, Maintenance, 05/24/22 11:58:00 EDT, Tablet, [facility]/pharmacy #1130, Partial fill upon patient request if the prescription is for a schedule II opioid drug., 173, cm,... Start Date: 05/24/22 Stop Date: 05/31/22 Status: Ordered estradiol 2 mg oral tablet 1 tablet, By Mouth, Daily, # 30 tablet, 0 Refills, Maintenance, 03/05/23 16:28:00 EST, [facility] STORE 26[facility], 173, cm, 11/06/22 11:43:00 EDT, Height, 50, kg, 04/27/22 4:20:00 EST, Dry Weight Start Date: 03/05/23 Status: Ordered famotidine 20 mg oral tablet 20 mg, 1, tablet, By Mouth, 2 times a day, # 60 tablet, Refills 0, Tot. Refills 0, Maintenance, 05/26/22 8:45:00 EDT, Route to Pharmacy Electronically, [facility]/pharmacy #1518, Partial fill upon patient request if the prescription is for a schedule II opio... Start Date: 05/26/22 Status: Ordered famotidine 20 mg oral tablet 20 mg, 1, tablet, By Mouth, 2 times a day, # 180 tablet, Refills 0, Tot. Refills 0, Maintenance, 05/26/22 9:05:00 EDT, [facility] Partial fill upon patient request if the prescription is for a schedule II opi... Start Date: 05/26/22 Status: Ordered meclizine 12.5 mg oral tablet 1 tablet = 12.5 mg, By Mouth, 3 times a day, PRN for dizziness, # 30 tablet, 0 Refills, Acute 11/08/23 12:26:00 EDT, 11/06/22 12:26:00 EDT, Tablet, [facility]/pharmacy #1130, Partial fill upon patient request if the prescription is for a schedule II opioid d... Start Date: 11/06/22 Stop Date: 11/08/23 Status: Ordered omeprazole 40 mg oral enteric coated capsule 1 capsule = 40 mg, By Mouth, Daily, For abdominal pain/ stomach acid/ reflux, # 14 capsule, 0 Refills, Maintenance, 05/24/22 11:59:00 EDT, EC [facility]apsule, [facility] Partial fill upon patient request if the prescription is for a schedule II opioi... Start Date: 05/24/22 Stop Date: 06/07/22 Status: Ordered ondansetron 4 mg oral tablet, disintegrating 1 tablet = 4 mg, By Mouth, Every 8 hours, PRN as needed for nausea/vomiting, # 12 tablet, 0 Refills, Maintenance, 05/26/22 8:45:00 EDT, DIS Tablet, [facility]/pharmacy #0488, Partial fill upon patient request if the prescription is for a schedule II opioid d... Start Date: 05/26/22 Status: Ordered ondansetron 4 mg oral tablet, disintegrating 1 tablet = 4 mg, By Mouth, Every 8 hours, PRN as needed for nausea/vomiting, # 14 tablet, 0 Refills, Maintenance, 05/26/22 9:05:00 EDT, DIS Tablet, [facility]/pharmacy #1130, Partial fill upon patient request [...] MRI Safety Implantable Status Assigning Authority Unknown [id number] Unknown 10/04/21 Unknown Unknown Active Unknown [...] Care Nurse Name: Keith Stacy MD Position: [facility] AIRCRAFT CAPTAIN MD Member Role: Lifetime AIRCRAFT CAPTAIN Physician Address: Address: [address] [place] [address] Name: Robin Wagner Position: [facility] RN Member Role: Primary Care Nurse Name: Roxaan Young RN Position: [facility] RN Member Role: Primary Care Nurse Name: Oswald Harley NP Position: [facility] PCO Associate Professional Member Role: PCP Address: Address: [address] [place] [id number] Name: David TIDWELL, Neda Li Position: [facility] AMB Nurse Member Role: Primary Care Nurse Care Team Related Persons Name: LINDA MENDEL Address: [address], [place] [address] Name: GIANA LAMAS Address: home [address] [place] [address] Name: ROSHNI JUÁREZ Address: home [address] [place] [address] Name: SINDHU SCHRADER Address: home [address] [place] [id number] Name: CRAIG VACA Address: home [address] [place] [address]
--- OUTSIDE RECORDS SUMMARY | 2023-09-08 20:50 | XMS_ITS | Continuity of Care Document ---
Author Organization [facility] Address [address] [place] [address]- Care Team Providers Care Dielectric Embossing Machine Operator Name Role Phone Cherri DELAROSA, Oswald Brandon Primary Care Physicia n Encounter [facility] Date(s): 10/25/22 - 11/24/[address] [address]- Allergies, Adverse Reactions, Alerts Substance Reaction Severity [...] 10/30/21 15:13:00 EDT, Route to Pharmacy Electronically, [facility]/pharmacy #[id number],Partial fill upon patient request if the prescripti... Start Date: 10/30/21 Status: Ordered albuterol CFC free 90 mcg/inh inhalation aerosol 2, puffs, Inhalation, Every 6 hours, PRN, # 1 each, Refills 11, Tot. Refills 11, Maintenance, 10/10/21 9:46:00 EDT, Aerosol, Route to Pharmacy Electronically, [id number], [place], [place] - [id number], 173, c... Start Date: 10/10/21 Stop Date: 10/05/22 Status: Ordered dicyclomine 20 mg oral tablet 1 tablet = 20 mg, By Mouth, 3 times a day, For stomach cramping., # 21 tablet, 0 Refills, Maintenance, 05/24/22 11:58:00 EDT, Tablet, [facility]/pharmacy #[id number], Partial fill upon patient request if the prescription is for a schedule II opioid drug., 173, cm,... Start Date: 05/24/22 Stop Date: 05/31/22 Status: Ordered estradiol 2 mg oral tablet 1 tablet = 2 mg, By Mouth, Daily, # 30 tablet, 0 Refills, Maintenance, 11/11/22 8:39:00 EDT, Tablet, [facility]/pharmacy #[id number], Partial fill upon patient request if the prescription is for a schedule II opioid drug., 173, cm, 11/06/22 11:43:00 EDT, Height, 5... Start Date: 11/11/22 Status: Ordered famotidine 20 mg oral tablet 20 mg, 1, tablet, By Mouth, 2 times a day, # 60 tablet, Refills 0, Tot. Refills 0, Maintenance, 05/26/22 8:45:00 EDT, Route to Pharmacy Electronically, [facility]/pharmacy #[id number], Partial fill upon patient request if the prescription is for a schedule II opio... Start Date: 05/26/22 Status: Ordered famotidine 20 mg oral tablet 20 mg, 1, tablet, By Mouth, 2 times a day, # 180 tablet, Refills 0, Tot. Refills 0, Maintenance, 05/26/22 9:05:00 EDT, Route to Pharmacy Electronically, [facility]/pharmacy #[id number], Partial fill upon patient request if the prescription is for a schedule II opi... Start Date: 05/26/22 Status: Ordered meclizine 12.5 mg oral tablet 1 tablet = 12.5 mg, By Mouth, 3 times a day, PRN for dizziness, # 30 tablet, 0 Refills, Acute 11/08/23 12:26:00 EDT, 11/06/22 12:26:00 EDT, Tablet, [facility]/pharmacy #[id number], Partial fill upon patient request if the prescription is for a schedule II opioid d... Start Date: 11/06/22 Stop Date: 11/08/23 Status: Ordered omeprazole 40 mg oral enteric coated capsule 1 capsule = 40 mg, By Mouth, Daily, For abdominal pain/ stomach acid/ reflux, # 14 capsule, 0 Refills, Maintenance, 05/24/22 11:59:00 EDT, EC Capsule, [facility]/pharmacy #[id number], Partial fill upon patient request if the prescription is for a schedule II opioi... Start Date: 05/24/22 Stop Date: 06/07/22 Status: Ordered ondansetron 4 mg oral tablet, disintegrating 1 tablet = 4 mg, By Mouth, Every 8 hours, PRN as needed for nausea/vomiting, # 12 tablet, 0 Refills, Maintenance, 05/26/22 8:45:00 EDT, DIS Tablet, [facility]/pharmacy #[id number], Partial fill upon patient request if the prescription is for a schedule II opioid d... Start Date: 05/26/22 Status: Ordered ondansetron 4 mg oral tablet, disintegrating 1 tablet = 4 mg, By Mouth, Every 8 hours, PRN as needed for nausea/vomiting, # 14 tablet, 0 Refills, Maintenance, 05/26/22 9:05:00 EDT, DIS Tablet, [facility]/pharmacy #[id number], Partial fill upon patient request [...] MRI Safety Implantable Status Assigning Authority Unknown [id number] Unknown 10/04/21 Unknown Unknown Active Unknown Patient Care team information Care Team Personnel Name: Mendy Spicer RN Position: [facility] RN Member Role: Primary Care Nurse Name: Shiela Mays RN Position: [facility] RN Member Role: Primary Care Nurse Name: Ashley Fields RN Position: [facility] MR W/ Merge Member Role: Primary Care Nurse Name: Keith Stacy MD Position: [facility] PEDIATRIC NEUROLOGIST MD Member Role: Lifetime PEDIATRIC NEUROLOGIST Physician Address: Address: [address] [place] [address] Name: Robin Wagner Position: [facility] RN Member Role: Primary Care Nurse Name: Justin Francis RN Position: [facility] RN Member Role: Primary Care Nurse Name: Laya Montes RN Position: [facility] RN Member Role: Primary Care Nurse Name: Alice Jaurez RN Position: [facility] RN Member Role: Primary Care Nurse Name: Fela Garcia RN Position: [facility] ED RN W/OE and Tasks Member Role: Primary Care Nurse Name: Anay Rouse RN Position: [facility] RN Member Role: Primary Care Nurse Name: Jennifer Weaver RN Position: [facility] RN Member Role: Primary Care Nurse Name: Roxana Young RN Position: [facility] RN Member Role: Primary Care Nurse Name: Oswald Harley NP Position: [facility] PCO Associate Professional Member Role: PCP Address: Address: [address] [place] [id number] Name: Neda Hernandez RN Position: [facility] AMB Nurse Member Role: Primary Care Nurse Care Team Related Persons Name: MCKEONMENDEL Address: home [address], [place] [address] Name: GIANA LAMAS Address: home [address] [place] [address] Name: ROSHNI JUÁREZ Address: [place] [address] Name: SINDHU SCHRADER Address: home [address] [place] [address] Name: CRAIG VACA Address: home [address] [place] [id number]
--- OUTSIDE RECORDS SUMMARY | 2023-09-08 20:50 | XMS_ITS | Continuity of Care Document ---
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 Start Date: 10/30/21 Status: Ordered albuterol CFC free 90 mcg/inh inhalation aerosol 2, puffs, Inhalation, Every 6 hours, PRN, # 1 each, Refills 11, Tot. Refills 11, Maintenance, 10/10/21 9:46:00 EDT, Aerosol, Route to Pharmacy Electronically, [id number], [place], [place] - [id number], 173, c... Start Date: 10/10/21 Stop Date: 10/05/22 Status: Ordered dicyclomine 20 mg oral tablet 1 tablet = 20 mg, By Mouth, 3 times a day, For stomach cramping., # 21 tablet, 0 Refills, Maintenance, 05/24/22 11:58:00 EDT, Tablet, [facility]/pharmacy #[id number], Partial fill upon patient request if the prescription is for a schedule II opioid drug., 173, cm,... Start Date: 05/24/22 Stop Date: 05/31/22 Status: Ordered estradiol 2 mg oral tablet 1 tablet = 2 mg, By Mouth, Daily, # 30 tablet, 0 Refills, Maintenance, 11/11/22 8:39:00 EDT, Tablet, [facility]/pharmacy #1130, Partial fill upon patient request if the prescription is for a schedule II opioid drug., 173, cm, 11/06/22 11:43:00 EDT, Height, 5... Start Date: 11/11/22 Status: Ordered famotidine 20 mg oral tablet 20 mg, 1, tablet, By Mouth, 2 times a day, # 60 tablet, Refills 0, Tot. Refills 0, Maintenance, 05/26/22 8:45:00 EDT, Route to Pharmacy Electronically, [facility]/pharmacy #[id number], Partial fill upon patient request if the prescription is for a schedule II opio... Start Date: 05/26/22 Status: Ordered famotidine 20 mg oral tablet 20 mg, 1, tablet, By Mouth, 2 times a day, # 180 tablet, Refills 0, Tot. Refills 0, Maintenance, 05/26/22 9:05:00 EDT, Route to Pharmacy Electronically, [facility]/pharmacy #[id number], Partial fill upon patient request if the prescription is for a schedule II opi... Start Date: 05/26/22 Status: Ordered meclizine 12.5 mg oral tablet 1 tablet = 12.5 mg, By Mouth, 3 times a day, PRN for dizziness, # 30 tablet, 0 Refills, Acute 11/08/23 12:26:00 EDT, 11/06/22 12:26:00 EDT, Tablet, [facility]/pharmacy #[id number], Partial fill upon patient request if the prescription is for a schedule II opioid d... Start Date: 11/06/22 Stop Date: 11/08/23 Status: Ordered omeprazole 40 mg oral enteric coated capsule 1 capsule = 40 mg, By Mouth, Daily, For abdominal pain/ stomach acid/ reflux, # 14 capsule, 0 Refills, Maintenance, 05/24/22 11:59:00 EDT, EC Capsule, [facility]/pharmacy #[id number], Partial fill upon patient request if the prescription is for a schedule II opioi... Start Date: 05/24/22 Stop Date: 06/07/22 Status: Ordered ondansetron 4 mg oral tablet, disintegrating 1 tablet = 4 mg, By Mouth, Every 8 hours, PRN as needed for nausea/vomiting, # 12 tablet, 0 Refills, Maintenance, 05/26/22 8:45:00 EDT, DIS Tablet, [facility]/pharmacy #[id number], Partial fill upon patient request if the prescription is for a schedule II opioid d... Start Date: 05/26/22 Status: Ordered ondansetron 4 mg oral tablet, disintegrating 1 tablet = 4 mg, By Mouth, Every 8 hours, PRN as needed for nausea/vomiting, # 14 tablet, 0 Refills, Maintenance, 05/26/22 9:05:00 EDT, DIS Tablet, [facility]/pharmacy #[id number], Partial fill upon patient request [...] MRI Safety Implantable Status Assigning Authority Unknown [id number] Unknown 10/04/21 Unknown Unknown Active Unknown Patient Care team information Care Team Personnel Name: Mendy Spicer RN Position: [facility] RN Member Role: Primary Care Nurse Name: Shiela Mays RN Position: [facility] RN Member Role: Primary Care Nurse Name: Ashley Fields RN Position: [facility] MR W/ Merge Member Role: Primary Care Nurse Name: Keith Stacy MD Position: [facility] WATER TANKER DRIVER MD Member Role: Lifetime WATER TANKER DRIVER Physician Address: Address: [address] [place] [address] Name: Robin Wagner Position: [facility] RN Member Role: Primary Care Nurse Name: Justin Francis RN Position: [facility] ED RN W/OE and Tasks Member Role: Primary Care Nurse Name: Laya Montes RN Position: [facility] RN Member Role: Primary Care Nurse Name: Alice Juarez RN Position: [facility] RN Member Role: Primary Care Nurse Name: Fela Garcia RN Position: [facility] ED RN W/OE and Tasks Member Role: Primary Care Nurse Name: Anay Rouse RN Position: [facility] RN Member Role: Primary Care Nurse Name: Jennifer Weaver RN Position: [facility] RN Member Role: Primary Care Nurse Name: Roxana Young RN Position: [facility] RN Member Role: Primary Care Nurse Name: Oswald Harley NP Position: [facility] PCO Associate Professional Member Role: PCP Address: Address: [address] [place] [address]- Name: David TIDWELL, Neda Li Position: [facility] AMB Nurse Member Role: Primary Care Nurse Care Team Related Persons Name: MENDEL MCKEON Address: home [address] [place] [address] Name: GIANA LAMAS Address: home [address] [place] [address] Name: ROSHNI JUÁREZ Address: [place] [address] Name: SINDHU SCHRADER Address: home [address] [place] [address] Name: CRAIG VACA Address: home [address] [place] [address]
--- OUTSIDE RECORDS SUMMARY | 2023-09-08 20:50 | XMS_ITS | Continuity of Care Document ---
Author Organization [facility] Address [address] [place] [address]- Care Team Providers Care Air Lift Operator Name Role Phone Oswald Harley NP Primary Care Physicia n Encounter [facility] R [id number] Date(s): 03/04/23 - 04/03/[address] [address]- Attending Physician: AdmSrinivasa peterson Admitting Physician: AdmtrSrinivasa Referring Physician: Admtr, Ar8 Allergies, Adverse Reactions, [...] to Pharmacy Electronically, [facility]/pharmacy #[id number],Partial fill upon patient request if the prescripti... Start Date: 10/30/21 Status: Ordered albuterol CFC free 90 mcg/inh inhalation aerosol 2, puffs, Inhalation, Every 6 hours, PRN, # 1 each, Refills 11, Tot. Refills 11, Maintenance, 10/10/21 9:46:00 EDT, Aerosol, Route to Pharmacy Electronically, [id number], [place], [place] - [id number], 173, c... Start Date: 10/10/21 Stop Date: [...] tablet, 0 Refills, Maintenance, 03/05/23 16:28:00 EST, [facility] STORE [id number], 173, cm, 11/06/22 11:43:00 EDT, Height, 50, kg, 04/27/22 4:20:00 EST, Dry Weight Start Date: 03/05/23 Status: Ordered famotidine 20 mg oral tablet 20 mg, 1, tablet, By Mouth, 2 times a day, # 60 tablet, Refills 0, Tot. Refills 0, Maintenance, 05/26/22 8:45:00 EDT, Route to Pharmacy Electronically, [facility]/pharmacy #[id number], Partial fill upon patient request if the [...] 03/30/23 11:46:00 EST, Route to Pharmacy Electronically, [facility]/pharmacy #[id number], Partial fill upon pa... Start Date: [...] EDT, DIS Tablet, [facility]/pharmacy #[id number], Partial fill upon patient request if the [...] MRI Safety Implantable Status Assigning Authority Unknown [id number] Unknown 10/04/21 Unknown Unknown Active Unknown Note * Shauna Molina: PERFORM, SIGN, VERIFY Event Display: Patient Education/Instruction Authored Date: [id number] [facility] Clinical Summary Person Information Visit Date 03/20/2015 8:40 AM Name ASHER JUÁREZ Age 24 Years 1990 12:00 AM PCP Charles LANGShabana I [id number] Sex Female Race Black Ethnicity Non-/Non- Language Belarusian You can now view a summary of your hospital visit from the comfort of your home through a free online portal called [employer]. [employer] is a website that allows you to securely view your medical information including discharge summary, medications and follow-up visits. You can also send a secure electronic message to your doctor???s office to request appointments, renew medicationsor just ask a question. You can enroll at [email or web address] or register during your next office visit. Smoking can increase your chances of developing chronic health problems and can cause harmful effects to other family members in your house. If you smoke, you are strongly encouraged to quit. Please call the [place] Smokers??? Helpline at 6-431-CFEWNOW (or ) or log on to [email or web address] for more information. Reason for Visit: Allergy [...] kit) , See Instructions, Intramuscular Once--then go tot ER-pt will call w/ her insurance info, [...] primary care provider, you may find a [facility] provider by calling [facility] [facility] at [phone]. For information about the plan of care including goals and instructions for your diagnosis, please see the patient education orders section of this document. Patient Visit Summary: Future Appointments: Type Location Start Finish State Return [facility] Neurology 02/21/2015 2:00 PM 02/21/2015 2:30 PM Pending Return Adult [facility] See Sq 03/20/2015 8:40 AM 03/20/2015 8:55 AM Pending Follow-Up Instructions With: Address: When: NEUROLOGY APPT 02/22/16 2P @ [address] Comments: Patient Education Materials Additional Instructions: Patient Care team information Care Team Personnel Name: Mendy Spicer RN Position: [facility] RN Member Role: Primary Care Nurse Name: Shiela Mays RN Position: S RN Member Role: Primary Care Nurse Name: Ashley Fields RN Position: [facility] MR W/ Merge Member Role: Primary Care Nurse Name: Keith Stacy MD Position: [facility] HUMAN ANATOMY TEACHER MD Member Role: Lifetime HUMAN ANATOMY TEACHER Physician Address: Address: [address] [place] [id number]- [place] Name: Robin Wagner Position: [facility] RN Member Role: Primary Care Nurse Name: Justin Francis RN Position: [facility] ED RN W/OE and Tasks Member Role: Primary Care Nurse Name: Laya Montes RN Position: [facility] RN Member Role: Primary Care Nurse Name: Alice Juarez RN Position: [facility] RN Member Role: Primary Care Nurse Name: Fela Garcia RN Position: [facility] ED RN W/OE and Tasks Member Role: Primary Care Nurse Name: Anay Rouse RN Position: [facility] RN Member Role: Primary Care Nurse Name: Jennifer Weaver RN Position: [facility] RN Member Role: Primary Care Nurse Name: Roxana Young RN Position: [facility] RN Member Role: Primary Care Nurse Name: Oswald Harley NP Position: [facility] PCO Associate Professional Member Role: PCP Address: Address: [address] [place] [id number]- [place] Name: Neda Hernandez RN Position: [facility] AMB Nurse Member Role: Primary Care Nurse Care Team Related Persons Name: MENDEL MCKEON Address: home [address], [place] [address] Name: GIANA LAMAS Address: home [address] [place] [address] Name: ROSHNI JUÁREZ Address: home [address] [place] [address] Name: SINDHU SCHRADER Address: home [address] [place] [address] Name: CRAIG VACA Address: home [address] [place] [address]
--- OUTSIDE RECORDS SUMMARY | 2023-09-08 20:50 | XMS_ITS | Continuity of Care Document ---
Author Organization [facility] Address [address] [place] [address]- Care Team Providers Care Principal Cyber Engineer Name Role Phone Cherri DELAROSA, Oswald Brandon Primary Care Physicia n Encounter [facility] [place] Date(s): 08/03/23 - 08/10/23 [facility] [address] [place] [address]- Encounter Diagnosis Asthma exacerbation(Discharge Diagnosis) - 08/03/23 Asthma(Discharge Diagnosis) - 08/03/23 Allergic rhinitis(Discharge Diagnosis) - 08/03/23 Attending Physician: Adrienne Ruelas MD Referring Physician: Oswald Harley NP Allergies, [...] 15:13:00 EDT, Route to Pharmacy Electronically, [facility]/pharmacy #[id number],Partial fill upon patient request if the prescripti... [...] Gm, 0 Refills, Maintenance, 08/03/23 12:06:00 EDT, [facility]/pharmacy #[id number], with dose counter. any albuterol inhaler covered by insurance is fine., 2 puffs Inhalation Every 4 hours,PRN:cough,... Start Date: 08/03/23 Status: Ordered albuterol CFC free 90 mcg/inh inhalation aerosol 2, puffs, Inhalation, Every 6 hours, PRN, # 1 each, Refills 11, Tot. Refills 11, Maintenance, 04/16/23 13:07:00 EST, Aerosol, Route to Pharmacy Electronically, [id number], [facility]/pharmacy #[id number], 173, cm, 03/30/23 11:29:00 EST, H... Start Date: 04/16/23 Stop Date: 04/10/24 Status: Ordered cetirizine 10 mg oral tablet 1 tablet = 10 mg, By Mouth, Daily, PRN allergies, # 90 tablet, 0 Refills, Maintenance, 08/03/23 12:06:00 EDT, Tablet, [id number], Partial fill upon [...] tablet, 0 Refills, Maintenance, 03/05/23 16:28:00 EST, [facility] STORE [id number], 173, cm, 11/06/22 11:43:00 EDT, Height, 50, [...] Active Seizures Confirmed Active Underweight Confirmed Active Diagnosis Diagnosis Type Effective Dates Health Status Clinical Service Informant Asthma Discharge Diagnosis 08/03/23 Allergic rhinitis Discharge Diagnosis 08/03/23 Asthma exacerbation Discharge Diagnosis 08/03/23 Vital Signs Most recent to oldest [Reference Range]: 1 2 Height 173 cm (08/03/23 1:41 PM) 173 cm (08/03/23 11:28 AM) Weight 53.1 kg (08/03/23 11:28 AM) Oxygen Saturation [94-100 %] 100 % (08/03/23 11:28 AM) Pulse Rate [55-90 bpm] 56 bpm (08/03/23 1:41 PM) 48 bpm *L* (08/03/23 11:28 AM) Body Mass Index [18.5-24.99 kg/m2] 17.74 kg/m2 *L* (08/03/23 11:28 AM) Blood Pressure [90-138/55-84 mm Hg] 123/ 80mm Hg (08/03/23 11:28 AM) Temperature [96.8-100.4 DegF] 96.6 DegF *L* (08/03/23 11:28 AM) Weight Obtained Via Standing scale (08/03/23 11:28 AM) Social History Social History Type Response [...] MRI Safety Implantable Status Assigning Authority Unknown [id number] Unknown 10/04/21 Unknown Unknown Active Unknown Note * Clarissa Keyes MA: PERFORM Event Display: Patient Education/Instruction Authored Date: Ambulatory Adult Visit Summary [facility] [address] [place] [id number] Name: ASHER JUÁREZ : 1990?? Visit: 08/03/2023 11:21?? Ambulatory Visit Instructions ?? Your Care Team Primary Care Provider Oswald Harley NP? This Visit Provider Urgent [facility] Your Diagnosis Asthma Allergic rhinitis Asthma exacerbation Vitals Signs Temperature:??96.6 DegF??Low Height: 173 cm Pulse Rate:??48 bpm??Low Weight: 53.1 kg Systolic Blood Pressure: 123 mm Hg Body Mass Index:??17.74 kg/m2??Low Diastolic Blood Pressure: 80 mm Hg Body surface area: 1.6 Oxygen Saturation: 100 % ?? What to do next Future Orders Complete Urinalysis/Reflex Culture - Urine Clean Catch, Once, *Est. 05/08/23, Order for Today?? Medications The list below reflects the information in our records and provided by you today along with any changes made during this visit. Please continue your medications until treatment is completed or stopped by your provider. If this is different from the information you have or there are other questions,please contact the prescribing provider. What How Much When Instructions Unchanged Acetaminophen (acetaminophen 325 mg oral tablet) 2 tab(s) Oral Every 4 hours as needed for as needed for fever Unchanged Albuterol (albuterol CFC free 90 mcg/ inh inhalation aerosol) 2 puff(s) Inhalation Every 6 hours as needed for Wheezing/Shortness of Breath Duration: 30 Days Unchanged Dicyclomine (dicyclomine 20 mg oral tablet) 1 tab(s) Oral 3 times a day Duration: 7 Days For stomach cramping. ?? Unchanged Estradiol (estradiol 2 mg oral tablet) 1 tab(s) Oral Daily Unchanged Famotidine (famotidine 20 mg oral tablet) 1 tab(s) Oral Twice a day Duration: 30 Days Unchanged Meclizine (meclizine 12.5 mg oral tablet) 1 tab(s) Oral 3 times a day as needed for for dizziness Unchanged Omeprazole (omeprazole 40 mg oral enteric coated capsule) 1 capsule Oral Daily Duration: 14 Days For abdominal pain/ ??stomach acid/ ??reflux ?? Unchanged Ondansetron (ondansetron 4 mg oral tablet, disintegrating) 1 tab(s) Oral Every 8 hours as needed for as needed for nausea/vomiting Unchanged Ondansetron (ondansetron 4 mg oral tablet, disintegrating) 1 tab(s) Oral Every 8 hours as needed for as needed for nausea/vomiting Unchanged PredniSONE (predniSONE 5 mg oral tablet) 1 tab(s) Oral Daily Duration: 5 Days Medications and Immunizations Administered Medications Given During Visit No medications given during this visit.?? 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 WebMD Ignite Patient Education - Asthma (Adult)?? WebMD Ignite Patient Education - Allergic Rhinitis?? Common Emergency Awareness Tips IS IT A [...] are strongly encouraged to quit. Please call [facility] at [phone] or [phone] ([phone]) or log in to [email or web address] for referrals to smoking cessation programs. ?? The National Suicide Prevention Hotline is available 30/09 if you or someone you know needs to find a reason to keep living. By calling 1-159-998-Datalink (2725) you'll be connected to a skilled, trained counselor at a crisis center in your area. [facility] You can view and manage your care through the patient portal or by using a health care elba of your choosing. [employer] is a website that allows you to securely view your medical information including your hospital discharge summary, office visit summaries, medications and follow-up visits. You can also request appointments, renew medications, and request access to your medical information using a health care elba of your choosing, or just ask a question. You can enroll at [email or web address] or register during your next office visit. [facility], in keeping with [facility] guidance, no longer requires face masks for staff, patientsor visitors in most situations. Similiar to time spent indoors at other locations, there is the chance that you were exposed to repiratory viruses during your time with us (such as flu or COVID-19). If you develop symptoms concerning for a viral respiratory infection, please seek testing (and treatment if indicated) from your medical provider or home test kit. ?? Disclaimer: The information provided is of a [...] different or additional instructions may be required. ?? If you have questions, please consult with your primary care provider or pharmacist, as appropriate. This information is not intended to serve as substitution for assessment and evaluation by a qualified health care provider. If you do not have a primary care provider, you may find a [facility] provider by calling [facility] at [phone]. * Suraj LANG, Adrienne Y: PERFORM Event Display: Patient Education Leaflets Authored Date: [id number] Asthma (Adult) ?? [id number] Asthma (Adult) Asthma is a disease where the medium and??small air passages in the lung go into spasm. This limitsair flow. Inflammation and swelling of the airways cause more blockage. During an acute asthma attack, these things cause trouble breathing, wheezing, coughing, and chest tightness. An asthma attack can be triggered by many things. Common triggers include infections such as the common cold, bronchitis, and pneumonia. Irritants such as smoke or pollutants in the air, very cold air, strong emotions, and exercise can also trigger an attack. In??many adults with asthma, allergies to??dust, mold, pollen, and animal dander can cause an asthma attack. Skipping doses of daily asthmamedicine can also bring on an asthma attack. Asthma can be controlled using the??correct medicines prescribed by your healthcare provider. You can also control it by staying away from known triggers including allergens and irritants. Home care ??? Take prescribed medicine exactly as advised. Ask your healthcare team for help if youhave questions about how to use your inhaler or nebulizer. ??? Call your provider or get medical care right away if you need quick-relief medicine such as from an inhaler or aerosol breathing machine(nebulizer) more often than prescribed.. ??? If you are prescribed an antibiotic or the steroid prednisone, take all of the medicine as prescribed. Keep taking it even if you are feeling better aftera few days. ??? Don't smoke. Ask your provider for resource, such as organizations and websites to help you quit. Stay away from the smoke of others. Don't let anyone smoke in your home, in your car,or around you. Also don't use e-cigarettes. ??? Some people with asthma find their symptoms get worse when they take aspirin and nonsteroidal anti-inflammatory drugs (NSAIDs) or fever-reducing medicines such as ibuprofen and naproxen. Talk with your provider if you think this may apply to you. ??? Stay away from your asthma triggers. ?? Follow-up care Follow up with your healthcare provider, or as advised. Always bring all of your current medicines to any appointments with your provider. Also bring a complete list of medicines, even??those you take for other conditions. Bring your Asthma Action Plan to all appointments. If you don't have one, talk with your provider about making your own Asthma Action Plan. Get the COVID-19 vaccine, pneumonia (pneumococcal)??vaccine, and yearly flu shot (every fall). Ask your provider about this. ?? When to get medical care Call your healthcare provider right away if any of these occur:? More wheezing or shortness ofbreath ??? Waking up at night because of asthma symptoms ??? Need to use your quick-relief inhaler more often than normal without relief ??? Fever of 100.4??F (38??C) or higher, or as advised by yourprovider ??? Coughing up lots of dark-colored or bloody sputum (mucus) ??? Chest pain with each breath ??? If you use a peak flow meter as part of an Asthma Action Plan, and you are still in the yellow zone (50% to 79% of personal best) 15 minutes after using quick-relief inhaler medicine. ?? Call 911 Call 911 right away if any of these occur: ??? Trouble walking or talking because you're short of breath ??? If you use a peak flow meter as part of an Asthma Action Plan, and??you are still in the red zone (less than 50% of personal best) 15 minutes after using quick-relief inhaler medicine ??? Lips or fingernails turn lima, purple, or blue ??? Feeling faint or loss of consciousness ?? Last Reviewed Date: 2021 ?? 5667-8552 [employer]. All rights reserved. This information is not intended as a substitute for professional medical care. Always follow your healthcare professional's instructions. ?? * Suraj LANG, Adrienne Y: PERFORM Event Display: Patient Education Leaflets Authored Date: [id number] Allergic Rhinitis ?? [id number] Allergic Rhinitis Allergic rhinitis is an allergic reaction that affects the nose, and often the eyes. It???s often known as??nasal allergies. Nasal allergies are often due to things in the environment that are breathed in. Depending on what you're sensitive to, nasal allergies may occur only during certain seasons,or they may occur year round. Common indoor allergens include house dust mites, mold, cockroaches, and pet dander. Outdoor allergens include pollen from trees, grasses, and weeds.?? Symptoms include a runny, stuffy, or itchy nose. They also include sneezing and red and itchy eyes.You may feel tired more often. Severe allergies may also affect your breathing and trigger a condition called asthma.?? Tests can be done to see what allergens are affecting you. You may be referred to an grievance and appeals specialist for testing and further evaluation. Home care Your healthcare provider may prescribe medicines to help relieve allergy symptoms. These may include oral medicines, nasal sprays, or eye drops. Take these as directed by your provider. Don't share these prescription medicines with others. Ask your provider for advice on how to stay away from substances that you're allergic to.??Below are a few tips for each type of allergen. Pet dander: ??? Don't have pets with fur and feathers. ??? If you have a pet, keep it out of your bedroom and off upholstered furniture. ??? Don't pet, hug, or kiss the pet. If you do touch the pet, wash your hands afterwards. Pollen: ??? When pollen counts are high, keep windows of your car and home closed. If possible, use an air conditioner instead. ??? Wear a filter mask when mowing or doing yard work. Shower, wash your hair, and change clothes after being outside. House dust mites: ??? Wash bedding every week in hot water and detergent and dry on a hot setting. ??? Cover the mattress, box spring, and pillows with allergy covers.? If possible, sleep in a room with no carpet, curtains, or upholstered furniture. Cockroaches: ??? Store food in sealed containers. ??? Keep cabinets and floors clean and free of food crumbs. ??? Remove garbage from the home promptly. ??? Fix water leaks. ??? Block all areas where cockroaches can enter the home. Or have a professional consumer sales representative remove the cockroaches. Mold: ??? Keep humidity low by using a dehumidifier or air conditioner. Keep the dehumidifier and air conditioner clean and free of mold. ??? Clean moldy areas with bleach and water. Don't mix bleach with other seconds grader. In general: ??? Vacuum once or twice a week. If possible, use a vacuum with a high-efficiency particulate air (HEPA) filter. ??? Don't smoke. Stay away from cigarette smoke. And don't let people smoke in your home or car. Cigarette smoke is an irritant that can make symptoms worse. ?? Follow-up care Follow up as advised by the healthcare provider or our staff. If you were referred to an grievance and appeals specialist, make this appointment promptly. Ask your provider if allergy testing or allergy immunotherapy (such as allergy shots) are right for you. ?? When to call your healthcare provider Call your healthcare provider right away if these occur: ??? Coughing ??? Fever of 100.4??F (38??C)or higher, or as advised by your provider ??? Raised red bumps (hives) ??? Symptoms that are new, continue, or get worse ?? Call 911 Call 911??right away if you have: ??? Trouble breathing ??? Severe swelling of the face or severe itching of the eyes or mouth ??? Wheezing or shortness of breath ??? Chest tightness ??? Dizziness orlightheadedness ??? Feeling of doom ??? Stomach pain, bloating, vomiting, or diarrhea ?? Last Reviewed Date: 2021 ?? 4809-4554 [employer]. All rights reserved. This information is not intended as a substitute for professional medical care. Always follow your healthcare professional's instructions. ?? Patient Care team information Care Team Personnel [...] Care Nurse Name: Keith Stacy MD Position: [facility] [address] MD Member Role: [employer] [address] [facility] [facility] Physician Address: Address: [address] [place] [address]- Name: Robin Wagner [facility]: [facility] [...] Care Nurse Name: Oswald Harley NP Position: [facility] PCO Associate Professional Member Role: PCP Address: Address: [address] [place] [address]- [place] Name: Neda Hernandez RN Position: [facility] AMB Nurse Member Role: Primary Care Nurse Care Team Related Persons Name: MENDEL MCKEON Address: home [address], [place] [address] Name: GIANA LAMAS Address: [address] [place] [address] Name: ROSHNI JUÁREZ Address: home [address] [place] [address] Name: ANGELICA JUÁREZ Address: [address] [place] [address] Name: SINDHU SCHRADER Address: home [address] [place] [address] Name: CRAIG VACA Address: home [address] [place] [address]
--- OUTSIDE RECORDS SUMMARY | 2023-09-08 20:50 | XMS_ITS | Continuity of Care Document ---
Author Organization [facility] Address [address] [place] [address]- Care Team Providers Care Oil And Gas Drafter Name Role Phone Oswald Harley NP Primary Care Physicia n Encounter [facility] [place] Date(s): 04/07/23 - 05/10/[address] [address]- Attending Physician: Olga Lidia Quezada MD Admitting [...] EDT, Route to Pharmacy Electronically, [facility]/pharmacy #[id number],Partial fill upon patient request if the prescripti... Start Date: 10/30/21 Status: Ordered albuterol CFC free 90 mcg/inh inhalation aerosol 2, puffs, Inhalation, Every 6 hours, PRN, # 1 each, Refills 11, Tot. Refills 11, Maintenance, 04/16/23 13:07:00 EST, Aerosol, Route to Pharmacy Electronically, [id number], [facility]/pharmacy #[id number], 173, cm, 03/30/23 11:29:00 EST, [...] tablet, 0 Refills, Maintenance, 03/05/23 16:28:00 EST, [facility] STORE 00461, 173, cm, 11/06/22 11:43:00 EDT, Height, 50, kg, 04/27/22 4:20:00 EST, Dry Weight Start Date: 03/05/23 Status: Ordered famotidine 20 mg oral tablet 20 mg, 1, tablet, By Mouth, 2 times a day, # 60 tablet, Refills 0, Tot. Refills 0, Maintenance, 05/26/22 8:45:00 EDT, Route to Pharmacy Electronically, [facility]/pharmacy #[id number], Partial fill upon patient request if the [...] MRI Safety Implantable Status Assigning Authority Unknown [id number] Unknown 10/04/21 Unknown Unknown Active Unknown Patient Care team information Care Team Personnel Name: Mendy Spicer RN Position: [facility] RN Member Role: Primary Care Nurse Name: Shiela Mays RN Position: [facility] RN Member Role: Primary Care Nurse Name: Ashley Fields RN Position: [facility] MR W/ Merge Member Role: Primary Care Nurse Name: Keith Stacy MD Position: [facility] NEWS GATHERING TECHNICIAN MD Member Role: [employer] NEWS GATHERING TECHNICIAN Physician Address: Address: [address] [place] [address] Name: Robin Wagner Position: [facility] RN Member Role: Primary Care Nurse Name: Justin Francis RN Position: [facility] ED RN W/OE and Tasks Member Role: Primary Care Nurse Name: Laya Montes RN Position: [facility] RN Member Role: Primary Care Nurse Name: Alice Juarez RN Position: [facility] RN Member Role: Primary Care Nurse Name: Fela Garcia RN Position: [facility] ED RN W/OE and Tasks Member Role: Primary Care Nurse Name: Anay Rouse RN Position: [facility] RN Member Role: Primary Care Nurse Name: Jennifer Weaver RN Position: [facility] RN Member Role: Primary Care Nurse Name: Roxana Young RN Position: [facility] RN Member Role: Primary Care Nurse Name: Oswald Harley NP Position: [facility] PCO Associate Professional Member Role: PCP Address: Address: [address] [place] [address]- Name: David TIDWELL, Neda Li Position: [facility] AMB Nurse Member Role: Primary Care Nurse Care Team Related Persons Name: MENDEL MCKEON Address: home [address], [place] [address] Name: GIANA LAMAS Address: home [address] [place] [address] Name: ROSHNI JUÁREZ Address: home [address] [place] [address] Name: SINDHU SCHRADER Address: home [address] [place] [address] Name: CRAIG VACA Address: home [address] [place] [address]
--- OUTSIDE RECORDS SUMMARY | 2023-09-08 20:51 | XMS_ITS | Continuity of Care Document ---
Author Organization [facility] Address [address] [place] [address]- Care Team Providers Care Slab Installer Name Role Phone Cherri DELAROSA, Oswald Brandon Primary Care Physicia n Encounter [facility] Date(s): 11/06/22 - 12/06/[address] [address]- Allergies, Adverse Reactions, Alerts Substance Reaction Severity [...] 10/30/21 15:13:00 EDT, Route to Pharmacy Electronically, [facility]/pharmacy #[id number],Partial fill upon patient request if the prescripti... Start Date: 10/30/21 Status: Ordered albuterol CFC free 90 mcg/inh inhalation aerosol 2, puffs, Inhalation, Every 6 hours, PRN, # 1 each, Refills 11, Tot. Refills 11, Maintenance, 10/10/21 9:46:00 EDT, Aerosol, Route to Pharmacy Electronically, [id number], [place], [place] - [phone], 173, c... Start Date: 10/10/21 Stop Date: 10/05/22 Status: Ordered dicyclomine 20 mg oral tablet 1 tablet = 20 mg, By Mouth, 3 times a day, For stomach cramping., # 21 tablet, 0 Refills, Maintenance, 05/24/22 11:58:00 EDT, Tablet, [facility]/pharmacy #[id number], Partial fill upon patient request if the prescription is for a schedule II opioid drug., 173, cm,... Start Date: 05/24/22 Stop Date: 05/31/22 Status: Ordered estradiol 2 mg oral tablet 1 tablet = 2 mg, By Mouth, Daily, # 30 tablet, 0 Refills, Maintenance, 11/11/22 8:39:00 EDT, Tablet, [facility]/pharmacy #[id number], Partial fill upon patient request if the prescription is for a schedule II opioid drug., 173, cm, 11/06/22 11:43:00 EDT, Height, 5... Start Date: 11/11/22 Status: Ordered famotidine 20 mg oral tablet 20 mg, 1, tablet, By Mouth, 2 times a day, # 60 tablet, Refills 0, Tot. Refills 0, Maintenance, 05/26/22 8:45:00 EDT, Route to Pharmacy Electronically, [facility]/pharmacy #[id number], Partial fill upon patient request if the prescription is for a schedule II opio... Start Date: 05/26/22 Status: Ordered famotidine 20 mg oral tablet 20 mg, 1, tablet, By Mouth, 2 times a day, # 180 tablet, Refills 0, Tot. Refills 0, Maintenance, 05/26/22 9:05:00 EDT, Route to Pharmacy Electronically, [facility]/pharmacy #[id number], Partial fill upon patient request if the prescription is for a schedule II opi... Start Date: 05/26/22 Status: Ordered meclizine 12.5 mg oral tablet 1 tablet = 12.5 mg, By Mouth, 3 times a day, PRN for dizziness, # 30 tablet, 0 Refills, Acute 11/08/23 12:26:00 EDT, 11/06/22 12:26:00 EDT, Tablet, [facility]/pharmacy #[id number], Partial fill upon patient request if the prescription is for a schedule II opioid d... Start Date: 11/06/22 Stop Date: 11/08/23 Status: Ordered omeprazole 40 mg oral enteric coated capsule 1 capsule = 40 mg, By Mouth, Daily, For abdominal pain/ stomach acid/ reflux, # 14 capsule, 0 Refills, Maintenance, 05/24/22 11:59:00 EDT, EC Capsule, [facility]/pharmacy #1130, Partial fill upon patient request if the prescription is for a schedule II opioi... Start Date: 05/24/22 Stop Date: 06/07/22 Status: Ordered ondansetron 4 mg oral tablet, disintegrating 1 tablet = 4 mg, By Mouth, Every 8 hours, PRN as needed for nausea/vomiting, # 12 tablet, 0 Refills, Maintenance, 05/26/22 8:45:00 EDT, DIS Tablet, [facility]/pharmacy #[id number], Partial fill upon patient request if the prescription is for a schedule II opioid d... Start Date: 05/26/22 Status: Ordered ondansetron 4 mg oral tablet, disintegrating 1 tablet = 4 mg, By Mouth, Every 8 hours, PRN as needed for nausea/vomiting, # 14 tablet, 0 Refills, Maintenance, 05/26/22 9:05:00 EDT, DIS Tablet, [facility]/pharmacy #[id number], Partial fill upon patient request [...] MRI Safety Implantable Status Assigning Authority Unknown [id number] Unknown 10/04/21 Unknown Unknown Active Unknown Patient Care team information Care Team Personnel Name: Mendy Spicer RN Position: [facility] RN Member Role: Primary Care Nurse Name: Shiela Mays RN Position: [facility] RN Member Role: Primary Care Nurse Name: Ashley Fields RN Position: [facility] MR W/ Merge Member Role: Primary Care Nurse Name: Keith Stacy MD Position: [facility] C.O.D. CLERK MD Member Role: Lifetime C.O.D. CLERK Physician Address: Address: [address] [place] [address] Name: Robin Wagner Position: [facility] RN Member Role: Primary Care Nurse Name: Justin Francis RN Position: [facility] ED RN W/OE and Tasks Member Role: Primary Care Nurse Name: Laya Montes RN Position: [facility] RN Member Role: Primary Care Nurse Name: Alice Juarez RN Position: [facility] RN Member Role: Primary Care Nurse Name: Fela Garcia RN Position: [facility] ED RN W/OE and Tasks Member Role: Primary Care Nurse Name: Anay Rouse RN Position: [facility] RN Member Role: Primary Care Nurse Name: Jennifer Weaver RN Position: [facility] RN Member Role: Primary Care Nurse Name: Roxana Young RN Position: [facility] RN Member Role: Primary Care Nurse Name: Oswald Harley NP Position: [facility] PCO Associate Professional Member Role: PCP Address: Address: [address] [place] [id number] Name: David TIDWELL, Neda Li Position: [facility] AMB Nurse Member Role: Primary Care Nurse Care Team Related Persons Name: MENDEL MCKEON Address: home [address] [place] [address] Name: GIANA LAMAS Address: home [address] [place] [address] Name: ROSHNI JUÁREZ Address: [place] [address] Name: SINDHU SCHRADER Address: home [address] [place] [address] Name: CRAIG VACA Address: home [address] [place] [address]
--- OUTSIDE RECORDS SUMMARY | 2023-09-08 20:51 | XMS_ITS | Continuity of Care Document ---
Author Organization [facility] Address [address] [place] [address]- Care Team Providers Care Elderly Companion Name Role Phone Cherri DELAROSA, Oswald Branodn Primary Care Physicia n Encounter [facility] Date(s): 10/24/22 - 11/24/[address] [address]- Attending Physician: Not on Staff, Attending MD [...] Refills 0, Maintenance, as needed for fever, 08/23/22 15:13:00 EDT, Route to Pharmacy Electronically, [facility]/pharmacy #[id number],Partial fill upon patient request if the prescripti... Start Date: 10/30/21 Status: Ordered albuterol CFC free 90 mcg/inh inhalation aerosol 2, puffs, Inhalation, Every 6 hours, PRN, # 1 each, Refills 11, Tot. Refills 11, Maintenance, 10/10/21 9:46:00 EDT, Aerosol, Route to Pharmacy Electronically, [id number], [place], [place] - [id number], 173, c... Start Date: 10/10/21 Stop Date: 10/05/22 Status: Ordered dicyclomine 20 mg oral tablet 1 tablet = 20 mg, By Mouth, 3 times a day, For stomach cramping., # 21 tablet, 0 Refills, Maintenance, 05/24/22 11:58:00 EDT, Tablet, [facility]/pharmacy #1130, Partial fill upon patient request if the prescription is for a schedule II opioid drug., 173, cm,... Start Date: 05/24/22 Stop Date: 05/31/22 Status: Ordered estradiol 2 mg oral tablet 1 tablet = 2 mg, By Mouth, Daily, # 30 tablet, 0 Refills, Maintenance, 11/11/22 8:39:00 EDT, Tablet, [facility]/pharmacy #1130, Partial fill upon patient request if the prescription is for a schedule II opioid drug., 173, cm, 11/06/22 11:43:00 EDT, Height, 5... Start Date: 11/11/22 Status: Ordered famotidine 20 mg oral tablet 20 mg, 1, tablet, By Mouth, 2 times a day, # 60 tablet, Refills 0, Tot. Refills 0, Maintenance, 05/26/22 8:45:00 EDT, Route to Pharmacy Electronically, [facility]/pharmacy #[id number], Partial fill upon patient request if the prescription is for a schedule II opio... Start Date: 05/26/22 Status: Ordered famotidine 20 mg oral tablet 20 mg, 1, tablet, By Mouth, 2 times a day, # 180 tablet, Refills 0, Tot. Refills 0, Maintenance, 05/26/22 9:05:00 EDT, Route to Pharmacy Electronically, [facility]/pharmacy #1130, Partial fill upon patient request if the prescription is for a schedule II opi... Start Date: 05/26/22 Status: Ordered meclizine 12.5 mg oral tablet 1 tablet = 12.5 mg, By Mouth, 3 times a day, PRN for dizziness, # 30 tablet, 0 Refills, Acute 11/08/23 12:26:00 EDT, 11/06/22 12:26:00 EDT, Tablet, [facility]/pharmacy #1130, Partial fill upon patient request if the prescription is for a schedule II opioid d... Start Date: 11/06/22 Stop Date: 11/08/23 Status: Ordered omeprazole 40 mg oral enteric coated capsule 1 capsule = 40 mg, By Mouth, Daily, For abdominal pain/ stomach acid/ reflux, # 14 capsule, 0 Refills, Maintenance, 05/24/22 11:59:00 EDT, EC Capsule, [facility]/pharmacy #1130, Partial fill upon patient request if the prescription is for a schedule II opioi... Start Date: 05/24/22 Stop Date: 06/07/22 Status: Ordered ondansetron 4 mg oral tablet, disintegrating 1 tablet = 4 mg, By Mouth, Every 8 hours, PRN as needed for nausea/vomiting, # 12 tablet, 0 Refills, Maintenance, 05/26/22 8:45:00 EDT, DIS Tablet, [facility]/pharmacy #[id number], Partial fill upon patient request if the prescription is for a schedule II opioid d... Start Date: 05/26/22 Status: Ordered ondansetron 4 mg oral tablet, disintegrating 1 tablet = 4 mg, By Mouth, Every 8 hours, PRN as needed for nausea/vomiting, # 14 tablet, 0 Refills, Maintenance, 05/26/22 9:05:00 EDT, DIS Tablet, [facility]/pharmacy #1130, Partial fill upon patient [...] MRI Safety Implantable Status Assigning Authority Unknown [id number] Unknown 10/04/21 Unknown Unknown Active Unknown Patient Care team information Care Team Personnel Name: Mendy Spicer RN Position: [facility] RN Member Role: Primary Care Nurse Name: Shiela Mays RN Position: [facility] RN Member Role: Primary Care Nurse Name: Ashley Fields RN Position: [facility] MR W/ Merge Member Role: Primary Care Nurse Name: Keith Stacy MD Position: [facility] POSTAL SUPERINTENDENT MD Member Role: Lifetime POSTAL SUPERINTENDENT Physician Address: Address: [address] [place] [address] Name: Robin Wagner Position: [facility] RN Member Role: Primary Care Nurse Name: Justin Francis RN Position: [facility] RN Member Role: Primary Care Nurse Name: Laya Montes RN Position: [facility] RN Member Role: Primary Care Nurse Name: Alice Juarez RN Position: S RN Member Role: Primary Care Nurse Name: Fela Garcia RN Position: [facility] ED RN W/OE and Tasks Member Role: Primary Care Nurse Name: Anay Rouse RN Position: [facility] RN Member Role: Primary Care Nurse Name: Jennifer Weaver RN Position: [facility] RN Member Role: Primary Care Nurse Name: Roxana Young RN Position: [facility] RN Member Role: Primary Care Nurse Name: Oswald Harley NP Position: [facility] PCO Associate Professional Member Role: PCP Address: Address: [address] [place] [id number] Name: David TIDWELL, Neda Li Position: [facility] AMB Nurse Member Role: Primary Care Nurse Care Team Related Persons Name: MCKEON MENDEL Address: home [address] [place] [address] Name: GIANA LAMAS Address: home [address] [place] [address] Name: ROSHNI JUÁREZ Address: [place] [address] Name: SINDHU SCHRADER Address: home [address] [place] [address] Name: CRAIG VACA Address: home [address] [place] [address]
--- OUTSIDE RECORDS SUMMARY | 2023-09-08 20:51 | XMS_ITS | Continuity of Care Document ---
Author Organization [facility] Address [address] [place] [address]- Care Team Providers Care Financial Adviser Name Role Phone Cherri DELAROSA, Oswald Brandon Primary Care Physicia n Encounter [facility] Date(s): 01/22/23 - 02/21/[address] [address]- Attending Physician: Admtr, [id number] Admitting Physician: Admtr, [...] 10/30/21 15:13:00 EDT, Route to Pharmacy Electronically, [facility]/pharmacy #[id number],Partial fill upon patient request if the prescripti... Start Date: 10/30/21 Status: Ordered albuterol CFC free 90 mcg/inh inhalation aerosol 2, puffs, Inhalation, Every 6 hours, PRN, # 1 each, Refills 11, Tot. Refills 11, Maintenance, 10/10/21 9:46:00 EDT, Aerosol, Route to Pharmacy Electronically, [id number], [place], [place] - [phone], 173, c... Start Date: 10/10/21 Stop Date: 10/05/22 Status: Ordered dicyclomine 20 mg oral tablet 1 tablet = 20 mg, By Mouth, 3 times a day, For stomach cramping., # 21 tablet, 0 Refills, Maintenance, 05/24/22 11:58:00 EDT, Tablet, [facility]/pharmacy #1130, Partial fill upon patient request if the prescription is for a schedule II opioid drug., 173, cm,... Start Date: 05/24/22 Stop Date: 05/31/22 Status: Ordered estradiol 2 mg oral tablet 1 tablet = 2 mg, By Mouth, Daily, # 30 tablet, 0 Refills, Maintenance, 11/11/22 8:39:00 EDT, Tablet, [facility]/pharmacy #1130, Partial fill upon patient request if the prescription is for a schedule II opioid drug., 173, cm, 11/06/22 11:43:00 EDT, Height, 5... Start Date: 11/11/22 Status: Ordered famotidine 20 mg oral tablet 20 mg, 1, tablet, By Mouth, 2 times a day, # 60 tablet, Refills 0, Tot. Refills 0, Maintenance, 05/26/22 8:45:00 EDT, Route to Pharmacy Electronically, [facility]/pharmacy #[id number], Partial fill upon patient request if the prescription is for a schedule II opio... Start Date: 05/26/22 Status: Ordered famotidine 20 mg oral tablet 20 mg, 1, tablet, By Mouth, 2 times a day, # 180 tablet, Refills 0, Tot. Refills 0, Maintenance, 05/26/22 9:05:00 EDT, Route to Pharmacy Electronically, [facility]/pharmacy #1130, Partial fill upon patient request if the prescription is for a schedule II opi... Start Date: 05/26/22 Status: Ordered meclizine 12.5 mg oral tablet 1 tablet = 12.5 mg, By Mouth, 3 times a day, PRN for dizziness, # 30 tablet, 0 Refills, Acute 11/08/23 12:26:00 EDT, 11/06/22 12:26:00 EDT, Tablet, [facility]/pharmacy #1130, Partial fill upon patient request if the prescription is for a schedule II opioid d... Start Date: 11/06/22 Stop Date: 11/08/23 Status: Ordered omeprazole 40 mg oral enteric coated capsule 1 capsule = 40 mg, By Mouth, Daily, For abdominal pain/ stomach acid/ reflux, # 14 capsule, 0 Refills, Maintenance, 05/24/22 11:59:00 EDT, EC Capsule, [facility]/pharmacy #1130, Partial fill upon patient request if the prescription is for a schedule II opioi... Start Date: 05/24/22 Stop Date: 06/07/22 Status: Ordered ondansetron 4 mg oral tablet, disintegrating 1 tablet = 4 mg, By Mouth, Every 8 hours, PRN as needed for nausea/vomiting, # 12 tablet, 0 Refills, Maintenance, 05/26/22 8:45:00 EDT, DIS Tablet, [facility]/pharmacy #[id number], Partial fill upon patient request if the prescription is for a schedule II opioid d... Start Date: 05/26/22 Status: Ordered ondansetron 4 mg oral tablet, disintegrating 1 tablet = 4 mg, By Mouth, Every 8 hours, PRN as needed for nausea/vomiting, # 14 tablet, 0 Refills, Maintenance, 05/26/22 9:05:00 EDT, DIS Tablet, [facility]/pharmacy #1130, Partial fill upon patient [...] MRI Safety Implantable Status Assigning Authority Unknown [id number] Unknown 10/04/21 Unknown Unknown Active Unknown Note * Shauna Molian: PERFORM, SIGN, VERIFY Event Display: Patient Education/Instruction Authored Date: [id number] [facility] Clinical Summary Person Information Visit Date 03/20/2015 8:40 AM Name ASHER JUÁREZ Age 24 Years 1990 12:00 AM PCP Charles LANG, Shabana Joe PCP Sex Female Race Black Ethnicity Non-/Non- Language Arabic You can now view a summary of your hospital visit from the comfort of your home through a free online portal called [employer]. [employer] is a website that allows you to securely view your medical information including discharge summary, medications and follow-up visits. You can also send a secure electronic message to your doctor???s office to request appointments, renew medicationsor just ask a question. You can enroll at [email or web address] or register during your next office visit. Smoking can increase your chances of developing chronic health problems and can cause harmful effects to other family members in your house. If you smoke, you are strongly encouraged to quit. Please call the [place] Smokers??? Helpline at 8-330-UPVPNOW (or ) or log on to [email or web address] [place] for more information. Reason for Visit: Allergy [...] kit) , See Instructions, Intramuscular Once--then go [facility] will call w/ her insurance info, [...] primary care provider, you may find a [facility] provider by calling [facility] at [phone]. For information about the plan of care including goals and instructions for your diagnosis, please see the patient education orders section of this document. Patient Visit Summary: Future Appointments: Type Location Start Finish State Return [facility] 02/21/2015 2:00 PM 02/21/2015 2:30 PM Pending Return Adult [facility] 03/20/2015 8:40 AM 03/20/2015 8:55 AM Pending Follow-Up Instructions With: Address: When: NEUROLOGY APPT 02/22/16 2P @ [address] [place] [address] Comments: Patient Education Materials Additional Instructions: Patient [...] MD Position: [facility] LEATHER CRAFTER Member Role: Lifetime LEATHER CRAFTER Physician Address: Address: [address] [place] [address] Name: Robin Wagner Position: [facility] RN Member Role: Primary Care Nurse Name: Justin Francis RN Position: [facility] ADIA RN W/OE and Tasks Member Role: Primary [...] Professional Member Role: PCP Address: Address: [address] [place] [id number]- Name: Neda Hernandez RN Position: [facility] AMB Nurse Member Role: Primary Care Nurse Care Team Related Persons Name: MENDEL MCKEON Address: home [address], [place] [address] Name: GIANA LAMAS Address: home [address] [place] [address] Name: ROSHNI JUÁREZ Address: [place] [address] Name: SINDHU SCHRADER Address: home [address] [place] [id number] Name: CRAIG VACA Address: home [address] [place] [address]
[2023-09-08 21:45] LABS: Influenza A PCR NEGATIVE (Negative); Influenza B PCR NEGATIVE (Negative); Resp Syncy Virus RNA Qual PCR NEGATIVE (Negative); SARS COV2 PCR INHOUSE NEGATIVE (Negative)
[2023-09-09 01:21] VITALS: BP 121/76; PULSE 52; RESP 14; TEMP 36.8; O2SAT 100
== END 2023-09-09 01:30 | disposition home or self-care (01) ==
PROVIDERS: Emergency Medicine; Physician Assistant Medical; Emergency Provider Internal Medicine
DX: R07.89 Other chest pain (principal); R00.2 Palpitations; M79.602 Pain in left arm; F17.210 Nicotine dependence, cigarettes, uncomplicated; Z79.899 Other long term (current) drug therapy; Z03.818 Encounter for observation for suspected exposure to other biological agents ruled out
CPT/HCPCS: 0241U; 36415; 71046; 80053; 84484; 84702; 85025; 93005; 99283; 99284

== ENCOUNTER → 2023-09-08 20:04 | Outpatient (BNV) | payer OTHER, SELFPAY | PROVIDERS: Emergency Provider Internal Medicine; Visit Provider Internal Medicine | DX: R07.9 Chest pain, unspecified (principal) | CPT/HCPCS: 93010 ==

== ENCOUNTER 2024-08-08 00:18 | Emergency (ER) | payer OTHER, SELFPAY ==
--- NOTE | 2024-08-08 | ECG_ITS ---
Test Reason : CHEST PAIN Blood Pressure : */* mmHG Vent. Rate : 48 BPM Atrial Rate : 48 BPM P-R Int : 154 ms QRS Dur : 92 ms QT Int : 464 ms P-R-T Axes : * 71 57 degrees QTcB Int : 414 ms Sinus bradycardia Otherwise normal ECG When compared with ECG of 08-Sep-2023 20:04, No significant change was found Referred By: Generic ED Physician Electronically Signed By: ANILA ALVARADO MD
[2024-08-08 00:21] VITALS: BP 132/86; PULSE 55; RESP 17; TEMP 36.4; O2SAT 100; BMI 16.7
--- NOTE | 2024-08-08 00:30 | ED_ITS ---
HPI - General Adult General Chief complaint: General Medical Stated complaint: High BP Time Seen by Provider: 08/08/24 00:28 Source: patient Mode of arrival: ambulatory Limitations: no limitations History of Present Illness ED Provider: Traci Meredith NP HPI narrative: Patient is a 33-year-old female with past medical history of asthma, depression, endometriosis s/p hysterectomy who presents emergency department for evaluation. She reports over the past 5 days she has been experiencing intermittent episodes of dizziness described as a room spinning sensation. Occurs with sudden onset while she is walking around but additionally while she is at rest. When this comes on she does feel discomfort in her right upper anterior chest. These symptoms last a few minutes before self-resolving on their own. This prompted her to check her blood pressure with an automated wrist cuff (she works as a [employer] and has 1 with her at all times) and was getting elevated readings 167/90. She had called and spoke with her primary care doctor about this, she was advised that she should come to emergency department for further evaluation. She denies recent injury, fevers, chills, viral type symptoms, headache, vision changes, neck pain, neck stiffness, shortness of breath, difficulty breathing, nausea, vomiting, abdominal pain, numbness or tingling of the extremities, recent lower extremity redness pain or swelling. Denies concern for , endorsing a hysterectomy a few years prior Related Data Home Medications ?Medication ?Instructions ?Recorded ?Confirmed estradiol 2 mg tablet 2 mg PO DAILY 04/13/23 04/13/23 Previous Rx's ?Medication ?Instructions ?Recorded albuterol sulfate 90 mcg/actuation 2 inh inhalation Q4-6H PRN 03/11/23 breath activated powder inhaler shortness of breath or wheezing #1 ea nicotine (polacrilex) 2 mg buccal 2 mg buccal Q2H PRN Nicotine 04/15/23 lozenge Cravings #72 ea prednisone 20 mg tablet 20 mg PO DAILY 5 days #10 tabs 04/15/23 aluminum hydrox-magnesium carb 254 10 ml PO QID PRN dyspepsia #355 mL 07/09/23 mg-237.5 mg/5 mL oral suspension (Gaviscon Extra Strength) omeprazole 20 mg capsule,delayed 20 mg PO DAILY 30 days #30 caps 07/09/23 release ondansetron 4 mg disintegrating 4 mg PO Q6H PRN nausea and 08/02/23 tablet vomiting #10 tabs Allergies Allergy/AdvReac Type Severity Reaction Status Date / Time blueberry [BLUEBERRY] Allergy Unknown UNKNOWN Verified 08/08/24 00:25 Review of Systems 2 Review of Systems: Yes all other systems are reviewed and are negative [facility] Past Medical History Attestation statement: The following information was validated with the patient. Source: old records reviewed Social History Social History Household Members: Children Housing: Apartment Do you presently have visiting nurse or other home services: No Alcohol intake: never Patient Tobacco Use Status: Current everyday Tobacco user Tobacco use type: Cigarette Cigarette Packs Per Day: 0.05 Cigarettes Per Day: 1.0 Second Hand Smoke Exposure: No Substance Use Type: Marijuana Advance Directives: No Advance Directives Information Provided: Yes Do you have a plan to hurt others: No Plan service: No Physical Exam ED Vital Signs: Vital Signs - 24 hr 08/08/24 00:21 Temperature 97.6 F Pulse Rate 55 Respiratory Rate 17 Blood Pressure 132/86 Pulse Oximetry 100 Oxygen Delivery Method Room Air BMI result Body Mass Index 16.7 Appearance: Alert.?Oriented to person, place and time. No acute distress.?Normal affect. Eyes: Pupils equal, round and reactive to light.? ENT: Pharynx normal.?? Neck: Normal inspection.? Neck supple.?? CVS: Heart sounds normal. Normal heart rate and rhythm.? Pulses normal.?? Respiratory: No respiratory distress.? Lung sounds clear to auscultation bilaterally?? Abdomen: Soft and non-tender. Normoactive bowel sounds. Skin: Skin warm and dry.? Normal skin color.? ? Extremities: No lower extremity edema.? No calf ttp? Neuro: Moves all extremities spontaneously. Sensation intact bilaterally. No focal neuro deficits. Ambulates with normal steady gait. Medical Decision Making Medical Decision Making MDM Narrative: Patient is a 33-year-old female who presents emergency department for evaluation with a expressed concern for intermittent episodes of dizziness, right upper anterior chest pain, and hypertension as per HPI. At the time of my initial evaluation she is overall well-appearing, nontoxic, afebrile. No respiratory distress, no hypoxia tachypnea, she is speaking clear full sentences. She has mild bradycardia currently without any symptoms, she is not notably hypertensive current BP 132/86. Will obtain CBC to evaluate for leukocytosis/ anemia, CMP and lipase to evaluate for abnormal electrolytes /abnormal renal function/ abnormal hepatic/biliary function, EKG and troponin to evaluate for ischemia/ACS, and Urinalysis. Wells score low risk for pulmonary embolism do not suspect as etiology for symptoms. She does not have risk factors for ACS. Denies recent URI symptoms no associated cough, do not suspect pneumonia. While she is endorsing dizziness, cerebellar function testing is normal, she has no focal neurological deficits not see indication for emergent head CT at time. Overall unremarkable as below. No further episodes of dizziness or chest pain in the emergency department. Has remains without hypertension. At this time feel that she is stable for discharge outpatient primary care provider and given strict return precautions. All questions answered. Differential Diagnosis Differential Diagnoses: The differential diagnosis associated with the presentation includes (See narrative above) Admission/Observation Consideration of admission/observation: Escalation of care including admission/observation considered Lab Data MDM Lab Attestation statement: I reviewed the patient's lab results. CBC is without leukocytosis, no significant anemia, no thrombocytopenia. No electrolyte derangement. No NEVILLE. LFTs unremarkable. High sensitive troponin below detectable limits. TSH is within normal range. 08/08/24 00:45 08/08/24 00:45 Labs: Lab Results 08/08/24 Range/Units 00:45 WBC 7.4 (4.8-10.8) X10*3/uL RBC 4.01 L (4.20-5.50) X10*6/uL Hgb 12.4 (12.0-16.0) g/dl Hct 36.6 L (37.0-47.0) % MCV 91.3 (80.0-98.0) fL MCH 30.9 (27.0-33.0) pg MCHC 33.9 (31.0-35.0) g/dl RDW 13.2 (11.0-16.0) % Plt Count 229 (160-400) X10*3/uL MPV 9.6 (9.4-12.3) fL Immature Gran % (Auto) 0.3 (0.0-0.4) % Neut % (Auto) 39.9 L (45-73) % Lymph % (Auto) 42.6 H (20-40) % [place] % (Auto) 5.9 (2-11) % Eos % (Auto) 10.9 H (0-4) % Baso % (Auto) 0.4 (0-2) % Lymph # (Auto) 3.2 (1.2-4.9) X10*3/uL [place] # (Auto) 0.4 (0.1-1.2) X10*3/uL Eos # (Auto) 0.8 H (0.0-0.4) X10*3/uL Baso # (Auto) 0.0 (0.0-0.2) X10*3/uL Abs Immat Gran (auto) 0.02 (0.00-0.03) X10*3/uL Absolute Neuts (auto) 3.0 (2.0-8.3) x10*3/uL Absolute Nucleated RBC 0.000 (0.0-0.012) X10*3/uL Nucleated RBC % (auto) 0.0 (0.0-0.2) /100WBC Sodium 142 (135-145) mmol/L Potassium 3.5 (3.3-5.1) mmol/L Chloride 106 (96-108) mmol/L Carbon Dioxide 27 (22-29) mmol/L Anion Gap 13 (12-20) BUN 12 (9-16) mg/dL Creatinine 0.78 (0.5-1.4) mg/dL Estim Creat Clear Calc 80.8 Estimated GFR > 60 Random Glucose 66 (60-115) mg/dL Calcium 9.2 (8.4-10.2) mg/dL Magnesium 1.8 (1.6-2.6) mg/dL Total Bilirubin 0.2 (0.0-1.0) mg/dL Direct Bilirubin < 0.2 (0.0-0.5) mg/dL AST 27 (5-31) U/L ALT 15 (0-31) U/L Alkaline Phosphatase 70 (39-117) U/L Troponin I High Sens < 2.7 (<3.5-17.0) ng/L Total Protein 6.6 (6.5-8.0) g/dL Albumin 3.8 (3.5-5.0) g/dL TSH 0.65 (0.32-4.0) uIU/mL Independent Interpretation I performed an independent interpretation of an: EKG (Sinus bradycardia ventricular rate of 48, normal CHANDAN, QTC [address]-elevation) External Record Review External record reviewed: Outpatient record Chronic Conditions Patient?s care impacted by: Other (See narrative above) Discharge Plan Discharge Clinical Impression: Dizziness, Chest pain Patient Disposition: Home, Self-Care Instructions: Chest Pain (ED), Dizziness (ED) Additional Instructions: Blood work today was overall reassuring. Cardiac enzyme, troponin was normal. EKG did not show evidence of arrhythmia or heart attack. Your blood pressure today was normal it was not noted to be elevated. Please follow-up with your primary care doctor within 3 days. Return back to emergency department any new or worsening symptoms or concerns. Prescriptions: No Action albuterol sulfate 90 mcg/actuation aerosol powdr breath activated 2 inh inhalation Q4-6H PRN (Reason: shortness of breath or wheezing) Qty: 1 0RF omeprazole 20 mg capsule,delayed release(DR/EC) 20 mg PO DAILY 30 Days Qty: 30 1RF Gaviscon Extra Strength 254-237.5 mg/5 mL suspension 10 ml PO QID PRN (Reason: dyspepsia) Qty: 355 0RF ondansetron 4 mg tablet,disintegrating 4 mg PO Q6H PRN (Reason: nausea and vomiting) Qty: 10 0RF estradiol 2 mg tablet 2 mg PO DAILY nicotine (polacrilex) 2 mg Lozenge 2 mg buccal Q2H PRN (Reason: Nicotine Cravings) Qty: 72 0RF prednisone 20 mg tablet 20 mg PO DAILY 5 Days Qty: 10 0RF Referrals: Physician,Unknown J [Primary Care Provider] - Print Language: Qatari
[2024-08-08 00:50] LABS: MANUAL DIFF FLAG NO
[2024-08-08 00:51] LABS: Basophils Percent Auto 0.4 % (0-2); Eosinophils Absolute Auto 0.8 X10*3/uL (0.0-0.4); Eosinophils Percent Auto 10.9 % (0-4); Hematocrit 36.6 % (37.0-47.0); Hemoglobin 12.4 g/dl (12.0-16.0); Imm Gran Abs Auto 0.02 X10*3/uL (0.00-0.03); Imm Gran Pct Auto 0.3 % (0.0-0.4); Lymphocytes Absolute Auto 3.2 X10*3/uL (1.2-4.9); Lymphocytes Percent Auto 42.6 % (20-40); Mean Corpuscular HGB Conc 33.9 g/dl (31.0-35.0); Mean Corpuscular Hemoglobin 30.9 pg (27.0-33.0); Mean Corpuscular Volume 91.3 fL (80.0-98.0); Mean Platelet Volume 9.6 fL (9.4-12.3); Monocytes Absolute Auto 0.4 X10*3/uL (0.1-1.2); Monocytes Percent Auto 5.9 % (2-11); Neutrophils Percent Auto 39.9 % (45-73); Platelet Count 229 X10*3/uL (160-400); Red Blood Count 4.01 X10*6/uL (4.20-5.50); Red Cell Distribution Width 13.2 % (11.0-16.0); White Blood Count 7.4 X10*3/uL (4.8-10.8)
[2024-08-08 01:10] LABS: Troponin-I High Sensitivity < 2.7 ng/L (<3.5-17.0)
[2024-08-08 01:19] LABS: Alanine Aminotransferase 15 U/L (0-31); Albumin Level 3.8 g/dL (3.5-5.0); Alkaline Phosphatase 70 U/L (39-117); Anion Gap 13 (12-20); Aspartate Amino Transferase 27 U/L (5-31); Bilirubin Direct < 0.2 mg/dL (0.0-0.5); Bilirubin Total 0.2 mg/dL (0.0-1.0); Blood Urea Nitrogen 12 mg/dL (9-16); Calcium 9.2 mg/dL (8.4-10.2); Carbon Dioxide 27 mmol/L (22-29); Chloride 106 mmol/L (96-108); Creatinine Clr Calc Pharmacy 80.8; Estimated Glomerular Filt Rate > 60; Glucose Random 66 mg/dL (60-115); Magnesium 1.8 mg/dL (1.6-2.6); Potassium 3.5 mmol/L (3.3-5.1); Sodium 142 mmol/L (135-145); Total Protein 6.6 g/dL (6.5-8.0)
[2024-08-08 01:27] LABS: TSH reflex Free T4 0.65 uIU/mL (0.32-4.0)
[2024-08-08 02:07] VITALS: BP 103/71; PULSE 63; RESP 16; TEMP 36.6; O2SAT 98
== END 2024-08-08 02:25 | disposition home or self-care (01) ==
PROVIDERS: Emergency Provider Emergency Medicine
DX: R07.9 Chest pain, unspecified (principal); R42 Dizziness and giddiness
CPT/HCPCS: 36415; 80048; 80076; 83735; 84443; 84484; 85025; 93005; 99284

== ENCOUNTER → 2024-08-08 00:27 | Outpatient (BNV) | payer OTHER, SELFPAY | PROVIDERS: Emergency Provider Emergency Medicine; Visit Provider Internal Medicine Cardiovascular Disease | DX: R00.1 Bradycardia, unspecified (principal) | CPT/HCPCS: 93010 ==

== ENCOUNTER → 2024-09-23 22:01 | Outpatient (BNV) | payer OTHER, SELFPAY | PROVIDERS: Visit Provider Radiology Diagnostic Radiology | DX: R06.02 Shortness of breath (principal) | CPT/HCPCS: 71045 ==

== ENCOUNTER 2024-09-23 22:12 | Emergency (ER) | payer OTHER, SELFPAY ==
--- NOTE | ~2024-09-23 | XR_ITS ---
CLINICAL HISTORY: SOB 1 view chest x-ray Comparison: 09/08/2023 Findings: Lungs are clear without acute infiltrates. No pneumothorax. Heart size normal. No acute bony abnormalities. Impression: No acute processes This document has been electronically signed by: Mohan Marino MD on 09/23/2024 23:18:24
--- NOTE | ~2024-09-23 | CT_ITS ---
CLINICAL HISTORY: Pleurisy, R back pain, cough CT angiography chest with contrast. 3D Postprocessing. Comparison: Prior chest radiographs most recently on 09/23/2024 Findings: The heart is normal size. RV/LV ratio is normal. The thoracic aorta is normal caliber. No acute pulmonary embolus. The visualized thyroid and mediastinum are unremarkable. No large airspace consolidation. Small area of subpleural consolidation in the posterior aspect of right upper lobe measuring 1.4 x 0.6 cm on series 6, image 22. The visualized upper abdomen is unremarkable. No acute fractures. IMPRESSION: 1. No evidence of acute pulmonary embolism. 2. Small focus of subpleural right upper lobe consolidation measuring 1.4 x 0.6 cm. This could represent focal atelectasis/scarring however overall remains indeterminate. If clinically indicated, short-term follow-up with low-dose noncontrast chest CT in 3 months may be considered. This document has been electronically signed by: Nereida Dill MD on 09/24/2024 02:01:02
[2024-09-23 22:13] VITALS: BP 94/70; PULSE 54; RESP 18; TEMP 36.6; O2SAT 100; BMI 16.5
--- NOTE | 2024-09-23 22:22 | ECG_ITS ---
Test Reason : SOB Blood Pressure : */* mmHG Vent. Rate : 52 BPM Atrial Rate : 52 BPM P-R Int : 142 ms QRS Dur : 92 ms QT Int : 450 ms P-R-T Axes : * 71 71 degrees QTcB Int : 418 ms Sinus bradycardia Otherwise normal ECG When compared with ECG of 08-Aug-2024 00:27, No significant change was found Referred By: Generic ED Physician Electronically Signed By: SUHAIL BORRERO
[2024-09-23 23:02] LABS: MANUAL DIFF FLAG NO
[2024-09-23 23:03] VITALS: BP 101/69; PULSE 52; RESP 14; TEMP 36.4; O2SAT 97
[2024-09-23 23:03] LABS: Hematocrit 35.0 % (37.0-47.0); Hemoglobin 12.3 g/dl (12.0-16.0); Mean Corpuscular HGB Conc 35.1 g/dl (31.0-35.0); Mean Corpuscular Hemoglobin 31.8 pg (27.0-33.0); Mean Corpuscular Volume 90.4 fL (80.0-98.0); Platelet Count 220 X10*3/uL (160-400); Red Blood Count 3.87 X10*6/uL (4.20-5.50); White Blood Count 6.9 X10*3/uL (4.8-10.8)
[2024-09-23 23:04] LABS: Imm Gran Abs Auto 0.02 X10*3/uL (0.00-0.03); Imm Gran Pct Auto 0.3 % (0.0-0.4); Lymphocytes Absolute Auto 2.3 X10*3/uL (1.2-4.9); NRBC Abs Auto 0.000 X10*3/uL (0.0-0.012); NRBC Pct Auto 0.0 /100WBC (0.0-0.2)
[2024-09-23 23:23] LABS: Alanine Aminotransferase 20 U/L (0-31); Albumin Level 3.9 g/dL (3.5-5.0); Alkaline Phosphatase 81 U/L (39-117); Anion Gap 14 (12-20); Aspartate Amino Transferase 32 U/L (5-31); Blood Urea Nitrogen 9 mg/dL (9-16); Calcium 8.7 mg/dL (8.4-10.2); Carbon Dioxide 25 mmol/L (22-29); Chloride 106 mmol/L (96-108); Creatinine Clr Calc Pharmacy 72.3; Estimated Glomerular Filt Rate > 60; Magnesium 1.9 mg/dL (1.6-2.6); Potassium 3.8 mmol/L (3.3-5.1); Sodium 141 mmol/L (135-145); Total Protein 7.0 g/dL (6.5-8.0)
[2024-09-23 23:36] LABS: Troponin-I High Sensitivity < 2.7 ng/L (<3.5-17.0)
--- NOTE | 2024-09-24 00:29 | ED.SOB ---
HPI - SOB/Dyspnea General Chief Complaint: Dyspnea Stated Complaint: difficulty breathing Time Seen by Provider: 09/23/24 23:14 Source: patient Mode of arrival: ambulatory Limitations: no limitations History of Present Illness ED Provider: Roque ESTEBAN HPI Narrative: The patient is a 33-year-old female presenting to the ED reporting for the past week she has been experiencing atraumatic pleuritic pain of the right mid scapular area. The patient denies recent fall, car accident, or other blunt trauma, denies associated fever/chills, productive cough, sick contacts, hemoptysis, chest pain, abdominal pain, nausea, vomiting, diarrhea, urinary symptoms or other acute somatic complaint. The patient reports a history of asthma, reports increased use of her inhaler however denies any relief and reports symptoms do not correlate with her regular asthma symptoms. The patient reports taking Tylenol without relief. The patient reports inability to take a full deep breath secondary to pain and attempting to take a full deep breath results in nonproductive coughing. The patient denies any recent travel, calf tenderness, or personal or familial history of coagulopathy. The patient reports she was previously on estrogen containing control however had a hysterectomy with subsequent discontinuation of the control. Related Data Home Medications ?Medication ?Instructions ?Recorded ?Confirmed estradiol 2 mg tablet 2 mg PO DAILY 04/13/23 04/13/23 Previous Rx's ?Medication ?Instructions ?Recorded albuterol sulfate 90 mcg/actuation 2 inh inhalation Q4-6H PRN 03/11/23 breath activated powder inhaler shortness of breath or wheezing #1 ea nicotine (polacrilex) 2 mg buccal 2 mg buccal Q2H PRN Nicotine 04/15/23 lozenge Cravings #72 ea prednisone 20 mg tablet 20 mg PO DAILY 5 days #10 tabs 04/15/23 aluminum hydrox-magnesium carb 254 10 ml PO QID PRN dyspepsia #355 mL 07/09/23 mg-237.5 mg/5 mL oral suspension (Gaviscon Extra Strength) omeprazole 20 mg capsule,delayed 20 mg PO DAILY 30 days #30 caps 07/09/23 release ondansetron 4 mg disintegrating 4 mg PO Q6H PRN nausea and 08/02/23 tablet vomiting #10 tabs doxycycline monohydrate 100 mg 100 mg PO BID #20 caps 09/24/24 capsule Allergies Allergy/AdvReac Type Severity Reaction Status Date / Time blueberry (BLUEBERRY) Allergy Unknown Anaphylaxis Verified 09/23/24 22:16 Review of Systems Review of Systems: Yes all other systems are reviewed and are negative PMFSH Social History Social History Household Members: Children Housing: Apartment Do you presently have visiting nurse or other home services: No Alcohol intake: never Patient Tobacco Use Status: Current everyday Tobacco user Tobacco use type: Cigarette Cigarette Packs Per Day: 0.05 Cigarettes Per Day: 1.0 Smoked in Last 30 Days: No Second Hand Smoke Exposure: No Use of substances other than those prescribed or required for medical reasons: No Substance Use Type: Marijuana Advance Directives: No Advance Directives Information Provided: No Patient : No service: No Physical Exam Vital Signs: Vital Signs: Last Vital Signs Temp 98.1 F 09/24/24 02:00 Pulse 57 09/24/24 02:00 Resp 20 09/24/24 02:00 BP 105/67 09/24/24 02:00 Pulse Ox 100 09/24/24 02:00 O2 Del Method Room Air 09/24/24 02:00 BMI result Body Mass Index 16.5 CONSTITUTIONAL: The patient appears non-toxic, well nourished and in no acute distress. Vital signs as documented. HEAD: Atraumatic, normocephalic. EYES: EOMs grossly intact, pupils equal, conjunctiva clear, no exudate. ENT: Nares patent, no discharge. Airway patent, no audible stridor, visible mucosa is pink and moist without noted lesions. NECK: Trachea is midline, no obvious masses or gross abnormalities. CHEST: Symmetric movement, normal appearance. LUNGS: LS present and CTAB, no w/r/r. Non-labored work of breathing. CARDIAC: Regular Rhythm, S1/S2 appreciated, no murmurs, rubs or gallops. ABDOMEN: Abdomen soft and non-tender x4 quadrants, no palpable masses or organomegaly. : Deferred. EXTREMITIES: Normal tone, moves all extremities spontaneously without reported pain. No obvious acute injury or deformity noted. NEURO: Alert and oriented x3, CN II-XII appear grossly intact. Cerebellar Functioning grossly intact. No obvious sensory or motor deficits. Speech clear and appropriate. PSYCH: normal affect, appropriate eye contact, fluid speech, with appropriate response to questioning. No reported suicidality or homicidality. SKIN: Warm, dry, color appropriate, normal turgor. No rashes noted. Medications Administered Discontinued Medications Generic Name Dose Route Start Last Admin Trade Name Dania PRN Reason Stop Dose Admin Doxycycline Monohydrate 100 mg 09/24/24 02:32 09/24/24 02:40 Doxycycline Monohydrate 100 Mg Capsule PO 09/24/24 02:33 100 mg ONCE ONE Administration Iohexol 75 ml 09/24/24 01:13 09/24/24 01:13 Iohexol 350 Mg/Ml 100 Ml Infus..Btl IV 09/24/24 01:14 75 ml ONCE ONE Administration Ketorolac Tromethamine 15 mg 09/24/24 02:32 09/24/24 02:48 Ketorolac Tromethamine 15 Mg/Ml Vial IVPUSH 09/24/24 02:33 15 mg ONCE ONE Administration Ondansetron HCl 4 mg 09/24/24 02:40 09/24/24 02:48 Ondansetron Hcl 4 Mg/2 Ml Vial IVPUSH 09/24/24 02:41 4 mg ONCE ONE Administration Medical Decision Making Medical Decision Making MDM Narrative: 12:34 AM 09/24/2024 (Layla ESTEBAN): The patient is a 33-year-old female presenting to the ED for evaluation of pleuritic right back pain which began atraumatically 1 week ago with increased shortness of breath and inhaler use without relief. The patient has no history of coagulopathy, exam is benign. The patient's laboratory evaluation is reassuring, no leukocytosis, anemia, electrolyte abnormality, or NEVILLE. The patient's chest x-ray shows no focal consolidation, no other acute cardiopulmonary process identified. The patient's pain is unable to be reproduced with direct palpation but is fully reproduced with deep respiration. Patient is moderate risk Wells criteria. The patient will be sent for CTA chest to evaluate for PE versus other acute cardiopulmonary process. 4:44 AM 09/24/2024 (Layla ESTEBAN): The patient's CTA shows no evidence of blood clot, there is a small focus of subpleural consolidation in the right upper lobe measuring 1.4 x 0.6 cm, which may represent focal atelectasis or scarring however is largely indeterminate. The patient will be treated with antibiotics, however patient has been advised of the CT finding and recommendation for follow up with repeat outpatient CT in 3 months or sooner if worsening symptoms, failure to respond to antibiotics, or otherwise recommended by PCP. Admission/Observation Consideration of admission/observation: Escalation of care including admission/observation considered Lab Data MDM Lab Attestation statement: I reviewed the patient's lab results. 09/23/24 22:47 09/23/24 22:47 Labs: Lab Results 09/23/24 Range/Units 22:47 WBC 6.9 (4.8-10.8) X10*3/uL RBC 3.87 L (4.20-5.50) X10*6/uL Hgb 12.3 (12.0-16.0) g/dl Hct 35.0 L (37.0-47.0) % MCV 90.4 (80.0-98.0) fL MCH 31.8 (27.0-33.0) pg MCHC 35.1 H (31.0-35.0) g/dl RDW 12.9 (11.0-16.0) % Plt Count 220 (160-400) X10*3/uL MPV 9.5 (9.4-12.3) fL Immature Gran % (Auto) 0.3 (0.0-0.4) % Neut % (Auto) 45.2 (45-73) % Lymph % (Auto) 33.8 (20-40) % [place] % (Auto) 7.3 (2-11) % Eos % (Auto) 12.5 H (0-4) % Baso % (Auto) 0.9 (0-2) % Lymph # (Auto) 2.3 (1.2-4.9) X10*3/uL [place] # (Auto) 0.5 (0.1-1.2) X10*3/uL Eos # (Auto) 0.9 H (0.0-0.4) X10*3/uL Baso # (Auto) 0.1 (0.0-0.2) X10*3/uL Abs Immat Gran (auto) 0.02 (0.00-0.03) X10*3/uL Absolute Neuts (auto) 3.1 (2.0-8.3) x10*3/uL Absolute Nucleated RBC 0.000 (0.0-0.012) X10*3/uL Nucleated RBC % (auto) 0.0 (0.0-0.2) /100WBC Sodium 141 (135-145) mmol/L Potassium 3.8 (3.3-5.1) mmol/L Chloride 106 (96-108) mmol/L Carbon Dioxide 25 (22-29) mmol/L Anion Gap 14 (12-20) BUN 9 (9-16) mg/dL Creatinine 0.86 (0.5-1.4) mg/dL Estim Creat Clear Calc 72.3 Estimated GFR > 60 Random Glucose 69 (60-115) mg/dL Calcium 8.7 (8.4-10.2) mg/dL Magnesium 1.9 (1.6-2.6) mg/dL Total Bilirubin 0.3 (0.0-1.0) mg/dL AST 32 H (5-31) U/L ALT 20 (0-31) U/L Alkaline Phosphatase 81 (39-117) U/L Troponin I High Sens < 2.7 (<3.5-17.0) ng/L Total Protein 7.0 (6.5-8.0) g/dL Albumin 3.9 (3.5-5.0) g/dL Independent Interpretation I performed an independent interpretation of an: EKG (EKG shows sinus bradycardia with a rate of 52, no evidence of acute ischemia, no ST elevation, no ectopy. QTC 418. Compared to previous on 08/08/2024 there are no acute morphology changes. ) Radiology Impression Discussion of test interpretation with radiology: I have reviewed the radiologist's reading. Radiologist Impression: CT angiography chest with contrast. 3D Postprocessing. Comparison: Prior chest radiographs most recently on 09/23/2024 Findings: The heart is normal size. RV/LV ratio is normal. The thoracic aorta is normal caliber. No acute pulmonary embolus. The visualized thyroid and mediastinum are unremarkable. No large airspace consolidation. Small area of subpleural consolidation in the posterior aspect of right upper lobe measuring 1.4 x 0.6 cm on series 6, image 22. The visualized upper abdomen is unremarkable. No acute fractures. IMPRESSION: 1. No evidence of acute pulmonary embolism. 2. Small focus of subpleural right upper lobe consolidation measuring 1.4 x 0.6 cm. This could represent focal atelectasis/scarring however overall remains indeterminate. If clinically indicated, short-term follow-up with low-dose noncontrast chest CT in 3 months may be considered. This document has been electronically signed by: Nereida Dill MD on 09/24/2024 02:01:02 Prescription Management I considered prescription management with: Pain Medication and Antibiotic Discharge Plan Discharge Clinical Impression: Community acquired pneumonia Patient Disposition: Home, Self-Care Instructions: Community Acquired Pneumonia (ED), Pulmonary Nodules (ED) Additional Instructions: Thank you for choosing [facility] Emergency Department for your care today. Your laboratory evaluation today was reassuring, and your CT shows no evidence of a blood clot. At this time there is no evidence of an acute process requiring admission to the hospital or continued ED observation, and it is safe to discharge you home. Your CT did however show concern for a small area of consolidation which may represent pneumonia, scarring, or possibly a pulmonary nodule which is abutting the upper right lung near your back, in your area of reported pain. This is likely causing your pain. We are treating you prophylactically with the antibiotic doxycycline to treat against pneumonia, however due to the irregularly well demarcated shape of the finding, it is extremely important they follow up with your primary care provider for re-evaluation to confirm resolution of your symptoms following antibiotics, and to obtain a repeat CT of your chest in 3 months or sooner as indicated to reassess the finding. You should take alternating (staggered) doses of ibuprofen 600mg and Tylenol 1000mg every 4 hours as needed for any additional pain. Please take doxycycline as prescribed until it is finished. Please follow up with your primary care physician for re-evaluation, repeat imaging, additional management of your symptoms, and continued preventative care. If you do not have a primary care physician, please call the [facility] at [phone] to establish a new primary care physician. While waiting to establish your new primary care physician, you can call our [facility] at [phone] for non-emergency needs. Please return to the emergency department if you develop a severe or sudden change in your symptoms, a fever over 100.4 that does not improve with Tylenol or Ibuprofen, recurrent vomiting, or any other new or worsening symptoms or concerns. Prescriptions: New doxycycline monohydrate 100 mg capsule 100 mg PO BID Qty: 20 0RF No Action albuterol sulfate 90 mcg/actuation aerosol powdr breath activated 2 inh inhalation Q4-6H PRN (Reason: shortness of breath or wheezing) Qty: 1 0RF omeprazole 20 mg capsule,delayed release(DR/EC) 20 mg PO DAILY 30 Days Qty: 30 1RF Gaviscon Extra Strength 254-237.5 mg/5 mL suspension 10 ml PO QID PRN (Reason: dyspepsia) Qty: 355 0RF ondansetron 4 mg tablet,disintegrating 4 mg PO Q6H PRN (Reason: nausea and vomiting) Qty: 10 0RF estradiol 2 mg tablet 2 mg PO DAILY nicotine (polacrilex) 2 mg Lozenge 2 mg buccal Q2H PRN (Reason: Nicotine Cravings) Qty: 72 0RF prednisone 20 mg tablet 20 mg PO DAILY 5 Days Qty: 10 0RF Print Language: Jamaican
[2024-09-24] MEDS: iohexoL 350 MG/ML 100 ML INFUS..BTL 75 ML IV (01:13)
[2024-09-24 02:00] VITALS: BP 105/67; PULSE 57; RESP 20; TEMP 36.7; O2SAT 100
[2024-09-24 04:57] VITALS: BP 103/63; PULSE 57; RESP 18; TEMP 36.6; O2SAT 100
[2024-09-24 05:02] VITALS: BP 103/63; PULSE 57; RESP 18; TEMP 36.6; O2SAT 100
== END 2024-09-24 05:15 | disposition home or self-care (01) ==
PROVIDERS: Emergency Provider Emergency Medicine
DX: J18.9 Pneumonia, unspecified organism (principal); R06.02 Shortness of breath; R00.1 Bradycardia, unspecified; F17.210 Nicotine dependence, cigarettes, uncomplicated; Z79.899 Other long term (current) drug therapy
CPT/HCPCS: 36415; 71045; 71275; 80053; 83735; 84484; 85025; 93005; 96374; 96375; 99284; 99285; J1885; J2405; Q9967

== ENCOUNTER → 2024-09-23 22:22 | Outpatient (BNV) | payer OTHER, SELFPAY | PROVIDERS: Emergency Provider Emergency Medicine; Visit Provider Internal Medicine | DX: R00.1 Bradycardia, unspecified (principal) | CPT/HCPCS: 93010 ==

== ENCOUNTER → 2024-09-24 00:27 | Outpatient (BNV) | payer OTHER, SELFPAY | PROVIDERS: Emergency Provider Emergency Medicine; Visit Provider Radiology Diagnostic Radiology | DX: R09.1 Pleurisy (principal); M54.9 Dorsalgia, unspecified; R50.9 Fever, unspecified | CPT/HCPCS: 71275 ==